=== PATIENT | male | born 1940 | race Caucasian/White ===

== ENCOUNTER 2016-11-10 06:00 | Emergency (ER) | payer MEDICARE, OTHER ==
[~2016-11-10] VITALS: Ht 182.9 cm; Wt 120.0 kg
[2016-11-10 06:00] VITALS: Ht 182.9 cm; Wt 120.0 kg
--- NOTE | 2016-11-10 06:00 | NUR ---
911 NOTE CONTACTED [facility] AND THEY REPORT THE FIRST CALL THEY RECEIVED WAS AT 0500 FOR A PT FOUND CODE BLUE. EMS ARRIVAL TO PT WAS AT 0515 AND THEY DEPARTED WITH PT ENROUTE TO [facility] [place] AT APPROX. [id number].
--- NOTE | 2016-11-10 06:15 | NUR ---
BLOOD GLUCOSE PREFORMED BY LAB BLOOD GLUCOSE IS 182
[2016-11-10 06:16] VITALS: PULSE 0; RESP 0
--- NOTE | 2016-11-10 06:16 | NUR ---
[facility] CALLED WITH ALL NURSTING STAFF, PROVIDER, AND RT IN AGREEMENT.
--- NOTE | 2016-11-10 06:20 | NUR ---
PT'S BROUGHT INTO ROOM WITH PT AND IS ASSISTED BY RN. HANDLES IT WELL, DENEIES NEED FOR VIGNESH STATING HER ST[employer] IS ALREADY ON HIS WAY.
--- OUTSIDE RECORDS SUMMARY | 2016-11-10 06:21 | XMS REPORT | Continuity of Care Document ---
Author Author [facility] Organization [facility] Address Unknown Phone Unavailable Care Team Providers Care Adobe Architect Name Role Phone APARNA AGUILAR MD Primary Care Physician [phone] Insurance Providers Payer Name Policy Number Subscriber Name Relationship [employer] Medicare [id number] Amee Guillen 01 Self / Same As Patient For Life [id number] Amee Guillen Self / Same As Patient Chief Complaint and Reason for Visit Chief Complaint Fall Reason for Visit [id number] Problems Medical Problems Problem Onset Date Status Benign essential hypertension 12/18/2010 Active Chronic congestive heart failure 12/18/2010 Active Chronic low back pain 12/18/2010 Active Depression 12/18/2010 Active Diabetes mellitus 12/18/2010 Active Disease related peripheral neuropathy 12/18/2010 Active Hyperlipidemia 12/18/2010 Active Cellulitis 03/09/2011 Active Fracture of clavicle 06/04/2011 Active Closed fracture of multiple ribs 06/19/2011 Active Atypical pneumonia 09/05/2011 Active Hypokalemia 11/08/2011 Active Atrial fibrillation 11/11/2011 Active Coronary arteriosclerosis 12/08/2011 Active Hypotension 12/08/2012 Active Hypothyroidism 12/08/2011 Active Bacterial urinary infection 12/08/2011 Active Sprain of ankle 01/04/2012 Active Sweating fever 01/27/2012 Active Altered mental status 06/26/2012 Active Fever 02/19/2012 Active SYSTEMIC INFLAMMATORY RESPONSE SYNDROME (SIRS) NOS 12/08/2012 Active Dermatitis 12/18/2010 Active fungal dermatitis 12/18/2010 Active Community acquired pneumonia 06/26/2012 Active Nausea and vomiting 06/26/2012 Active Atrial fibrillation and flutter 12/08/2012 Active Acute sinusitis 02/26/2013 Active Foot joint pain 04/22/2013 Active Diabetic foot ulcer 05/06/2013 Active Osteoporosis 2013 Active Acute bronchitis Unknown Active oxygen dependent Unknown Active Dyspnea Unknown Active Hypoxia Unknown Active Congestive heart failure (CHF) Unknown Active Emphysema/COPD Unknown Active Contusion of back wall of thorax Unknown Active Fall against object Unknown Active Sepsis Unknown Active Pneumonia Unknown Active Hx of diabetes mellitus Unknown Active Weakness Unknown Active History of CHF (congestive heart failure) Unknown Active Pneumonia Unknown Active Hx of diabetes mellitus Unknown Active Hyperkalemia Unknown Active Hx of diabetes mellitus Unknown Active Chronic pain Unknown Active Dehydration Unknown Active Cellulitis Unknown Active Opiate overdose Unknown Active Hypotension Unknown Active Cellulitis Unknown Active Hypoxia Unknown Active Pneumonia Unknown Active Cellulitis Unknown Active Hypoxia Unknown Active Hypotension Unknown Active Hx of diabetes mellitus Unknown Active Cellulitis Unknown Active Respiratory acidosis Unknown Active Hypoxemia Unknown Active COPD with acute exacerbation Unknown Active COPD with acute exacerbation Unknown Active COPD with acute exacerbation Unknown Active Medications Medication Dose Route Sig Days/Qty Instructions Order Date Discontinued Date Status Nitroglycerin 0.4 Mg SL NEEDED 04/07/08 07/31/11 Discontinued Citalopram Hydrobromide 2 Tab PO DAILY 08/28/10 02/15/11 Discontinued Insulin Glargine 24 Units SC BEDTIME 08/28/10 02/15/11 Discontinued Insulin Regular (Human) 5 Units SC BEFORE MEALS 08/28/10 02/15/11 Discontinued Clopidogrel Bisulfate 1 Tab PO DAILY 08/28/10 02/15/11 Discontinued Potassium Chloride 4 Tab PO THREE TIMES A DAY 08/28/10 02/15/11 Discontinued Spironolactone 1 Tab PO DAILY 08/28/10 02/15/11 Discontinued Bumetanide 1 Tab PO TWICE A DAY 08/28/10 02/15/11 Discontinued Colchicine 1 Tab PO DAILY 08/28/10 02/15/11 Discontinued Amiodarone Hcl 1 Tab PO DAILY 08/28/10 05/03/11 Discontinued Carvedilol 1 Tab PO TWICE A DAY 08/28/10 01/02/11 Discontinued Gabapentin 1 Tab PO TWICE A DAY 08/28/10 02/15/11 Discontinued Polyethylene Glycol 08/28/10 02/15/11 Discontinued Ferrous Sulfate 1 Tab PO DAILY 08/28/10 02/15/11 Discontinued Magnesium Oxide 1 Tab PO THREE TIMES A DAY 08/28/10 02/15/11 Discontinued Metoclopramide Hcl 1 Tab PO FOUR TIMES DAILY 08/28/10 02/15/11 Discontinued [Oxygen] 2-3 08/28/10 Active Oxycodone/Acetaminophen 1 Tab PO FOUR TIMES DAILY 08/28/10 09/12/12 Discontinued Levothyroxine Sodium 1 Tab PO DAILY 08/28/10 05/03/11 Discontinued Tramadol Hcl 1 - 2 Tabs PO FOUR TIMES DAILY 08/28/10 02/15/11 Discontinued Metolazone 1 Tab PO EVERY 3 DAYS 08/28/10 02/15/11 Discontinued Simvastatin 1 Tab PO BEDTIME 08/28/10 02/15/11 Discontinued Sulfamethoxazole-Trimethoprim 1 Tab PO TWICE A DAY 14 Qty 12/14/1018/05 Discontinued Carvedilol 0.5 Tab PO TWICE A DAY 0 Qty 01/02/11 04/04/11 Discontinued Ferrous Sulfate 325 Mg PO DAILY 30 Qty 01/16/11 02/15/11 Discontinued Tramadol Hcl 1 - 2 Tab PO Every 6 hours as needed 50 Qty 01/16/1118/05 Discontinued Bumetanide 1 Mg PO TWICE A DAY 02/15/11 01/07/12 Discontinued Potassium Chloride 10 Meq PO 3 twice a day 02/15/11 04/04/11 Discontinued Sertraline Hcl 100 Mg PO TWICE A DAY 02/15/11 02/28/11 Discontinued Ciprofloxacin Hcl 250 Mg PO TWICE A DAY 20 Qty 02/21/11 04/04/11 Discontinued Sertraline Hcl 100 Mg PO DAILY 0 Qty 02/28/11 04/04/11 Discontinued Doxycycline Hyclate 100 Mg PO TWICE A DAY 20 Qty 03/05/11 04/04/11 Discontinued Spironolactone 100 Mg PO DAILY 03/14/11 05/03/11 Discontinued Sertraline Hcl 100 Mg PO DAILY 30 Qty 03/16/11 03/17/12 Discontinued [Isodril] 10 Mg PO TWICE A DAY 03/16/11 04/04/11 Discontinued Sertraline Hcl 100 Mg PO DAILY 03/16/11 04/04/11 Discontinued Potassium Chloride 10 Meq PO 2 4 times a day 0 Qty 04/04/11 04/04/11 Discontinued Magnesium Oxide 400 Mg PO TWICE A DAY 04/04/11 02/05/12 Discontinued Gabapentin 600 Mg PO TWICE A DAY 04/04/11 Active Carvedilol 3.125 Mg PO TWICE A DAY 04/04/11 01/11/12 Discontinued Spironolactone 100 Mg PO DAILY 30 Qty 05/03/11 02/05/12 Discontinued Levothyroxine Sodium 1 Tab PO DAILY 30 Qty 05/03/11 07/31/11 Discontinued Amiodarone Hcl 1 Tab PO DAILY 30 Qty 05/03/11 07/31/11 Discontinued Sulfamethoxazole-Trimethoprim 1 Tab PO TWICE A DAY 20 Qty 06/11/1121/05 Discontinued Cholecalciferol 2,000 Unit PO DAILY 06/15/11 Active Sulfamethoxazole-Trimethoprim 1 Tab PO TWICE A DAY 20 Qty 06/20/1106/06 Discontinued Sulfamethoxazole-Trimethoprim 1 Tab PO TWICE A DAY 20 Qty 06/22/1106/06 Discontinued Polyethylene Glycol 3,350 Nf PO As Dir For CONSTIPATION 1 Qty 1 scoop everyother day 06/27/11 Active Levothyroxine Sodium 1 Tab PO DAILY 30 Qty 07/31/11 01/11/12 Discontinued Nitroglycerin 0.4 Mg SL NEEDED 1 Qty 07/31/11 04/14/12 Discontinued Ondansetron 4 Mg PO DAILY 1 Qty 08/17/11 04/21/12 Discontinued Bumetanide 1 Mg PO TWICE A DAY 60 Qty 01/07/12 02/05/12 Discontinued Levothyroxine Sodium 1 Tab PO DAILY 30 Qty 01/11/12 02/05/13 Discontinued Carvedilol 3.125 Mg PO TWICE A DAY 60 Qty 01/11/12 01/27/13 Discontinued Colchicine 0.6 Mg PO DAILY 30 Qty 01/11/12 01/27/13 Discontinued Tramadol Hcl 1 - 2 Tab PO Every 6 hours as needed 50 Qty 01/11/1205/05 Discontinued Potassium Chloride Microencaps (K-Dur) 2 Tab PO THREE TIMES A DAY 180 Qty 01/22/12 01/27/13 Discontinued Oxycodone HCl 40 Mg PO DAILY 01/27/12 02/27/12 Discontinued Spironolactone 100 Mg PO DAILY 30 Qty 02/05/12 11/03/12 Discontinued Magnesium Oxide 400 Mg PO TWICE A DAY 60 Qty 02/05/12 06/25/12 Discontinued Sertraline Hcl 100 Mg PO DAILY 30 Qty 03/17/12 06/03/12 Discontinued Influenza Virus Vaccine 0.5 Ml IM ONETIME 1 Qty 03/24/12 03/24/12 Discontinued Nitroglycerin 0.4 Mg SL NEEDED 1 Qty 04/14/12 10/15/12 Discontinued Ondansetron 4 Mg PO Every 4 hours as needed 30 Qty 04/21/12 07/16/12 Discontinued Ranitidine Hcl 150 Mg PO TWICE A DAY 60 Qty 04/21/12 06/03/12 Discontinued Tamsulosin Hcl 0.4 Mg PO Daily as needed 05/07/12 09/12/12 Discontinued Albuterol-Ipratropium 2 Puffs IN THREE TIMES A DAY 05/07/12 Discontinued Fluconazole 150 Mg PO WEEKLY 05/07/12 07/25/12 Discontinued Ranitidine Hcl 150 Mg PO TWICE A DAY For INDIGESTION 60 Qty 06/03/12 04/01/14 Discontinued Tramadol Hcl 1 - 2 Tab PO Every 6 hours as needed 50 Qty 06/03/1208/06 Discontinued Fluconazole 150 Mg PO DAILY 30 Qty 06/03/12 07/25/12 Discontinued Albuterol-Ipratropium 2 Puffs IN THREE TIMES A DAY 1 Qty 06/11/1209/03 Discontinued Magnesium Oxide 400 Mg PO TWICE A DAY 60 Qty 06/25/12 06/30/13 Discontinued Levofloxacin 750 Mg PO DAILY 5 Qty 06/28/12 07/25/12 Discontinued Minocycline Hcl 100 Mg PO DAILY 90 Qty 07/09/12 07/25/12 Discontinued Fluconazole 100 Mg PO WEEKLY 12 Qty 07/09/12 06/30/13 Discontinued Ondansetron 4 Mg PO Every 4 hours as needed 30 Qty 07/16/12 12/23/12 Discontinued Minocycline Hcl 100 Mg PO DAILY 07/25/12 09/12/12 Discontinued Sulfamethoxazole-Trimethoprim 2 Tab PO TWICE A DAY 40 Qty 07/28/1201/03 Discontinued Clindamycin Hcl 300 Mg PO THREE TIMES A DAY 30 Qty 07/28/12 08/13/12 Discontinued Sertraline Hcl 100 Mg PO DAILY 09/02/12 10/02/12 Discontinued Bumetanide 1 Mg PO TWICE A DAY 09/02/12 11/03/12 Discontinued Lorazepam 0.5 Mg PO Every 4 hours as needed 09/02/12 05/27/13 Discontinued Levofloxacin 500 Mg PO DAILY 5 Days 09/04/12 09/12/12 Discontinued Insulin Glargine 20 Unit SC BEDTIME 3 Qty 09/12/12 08/05/13 Discontinued Tamsulosin Hcl 0.4 Mg PO DAILY 90 Qty 09/12/12 06/30/13 Discontinued Oxycodone/Acetaminophen 1-2 Ea PO Every 6 hours as needed 09/24/12 Active Minocycline Hcl 100 Mg PO d@06 09/24/12 07/14/13 Discontinued Sertraline Hcl 100 Mg PO DAILY 90 Qty 10/02/12 08/05/13 Discontinued Nitroglycerin 0.4 Mg SL NEEDED For ANGINA PAIN 1 Qty 10/15/1202/15 Discontinued Spironolactone 100 Mg PO DAILY 90 Qty 11/03/12 11/26/13 Discontinued Levofloxacin 750 Mg PO DAILY 7 Days 12/10/12 01/13/13 Discontinued Ondansetron 4 Mg PO Every 4 hours as needed 30 Qty 12/23/12 12/23/12 Discontinued Tramadol Hcl 1 - 2 Tab PO Every 6 hours as needed 50 Qty 12/23/1208/06 Discontinued Tramadol Hcl 1 - 2 Tab PO Every 6 hours as needed 100 Qty 12/23/12 Discontinued Levofloxacin 500 Mg PO DAILY 10 Qty 12/29/12 01/13/13 Discontinued Colchicine 0.6 Mg PO DAILY 30 Qty 01/27/13 10/06/13 Discontinued Carvedilol 3.125 Mg PO TWICE A DAY 60 Qty 01/27/13 10/27/13 Discontinued Levothyroxine Sodium 1 Tab PO DAILY 30 Qty 02/05/13 10/27/13 Discontinued Aspirin 81 Mg PO DAILY 30 Qty 02/05/13 10/27/13 Discontinued Tramadol Hcl 1 - 2 Tab PO Every 6 hours as needed 100 Qty 02/18/13 Discontinued Sulfamethoxazole-Trimethoprim 1 Tab PO TWICE A DAY 20 Qty 02/26/13 Discontinued Amoxicillin/Clavulanate Potas 875 Mg PO TWICE A DAY 20 Qty 03/04/13 Discontinued Albuterol-Ipratropium 2 Puffs IN THREE TIMES A DAY 1 Qty 03/26/1309/03 Discontinued Influenza Virus Vaccine 0.5 Ml IM ONETIME 1 Qty 04/09/13 04/09/13 Discontinued Lorazepam 0.5 Mg PO Every 4 hours as needed 30 Qty 05/27/13 08/25/13 Discontinued Fluticasone Propionate (Nasal) 2 [place] NA DAILY 1 Qty 05/27/13 Discontinued Levofloxacin 500 Mg PO DAILY 10 Qty 05/29/13 07/31/13 Discontinued Magnesium Oxide 400 Mg PO TWICE A DAY For NUTRIENT REPLACEMENT 180 Qty 06/30/13 04/07/14 Discontinued Fluconazole 100 Mg PO WEEKLY For PREVENT INFECTION 12 Qty 06/30/1303/07 Discontinued Tamsulosin Hcl 0.4 Mg PO DAILY For DYSUREA 90 Qty 06/30/13 10/13/14 Discontinued Minocycline Hcl 100 Mg PO DAILY For ANTIBIOTIC 90 Qty 07/14/13 Discontinued Tramadol Hcl 1-2 Tab PO Every 6 hours as needed For BREAKTHROUGH PAIN 100 Qty 07/14/13 04/01/14 Discontinued Insulin Glargine 20 Unit SC BEDTIME For DIABETES 3 Qty 08/05/13 Discontinued Sertraline Hcl 100 Mg PO DAILY For ANTIDEPRESSANT 90 Qty 08/05/13 Discontinued Lorazepam 0.5 Mg PO Every 4 hours as needed 30 Qty 08/25/13 10/06/13 Discontinued Colchicine 0.6 Mg PO DAILY For PAIN 90 Qty 10/06/13 10/12/14 Discontinued Lorazepam 0.5 Mg PO Every 4 hours as needed For ANXIETY 60 Qty 12/22/13 Discontinued Carvedilol 3.125 Mg PO TWICE A DAY For HEART MED 180 Qty 10/27/1307/08 Discontinued Levothyroxine Sodium 1 Tab PO DAILY For THYROID 90 Qty 10/27/13 Discontinued Aspirin 81 Mg PO DAILY For BLOOD THINNER 90 Qty 10/27/13 Active Furosemide 80 Mg PO TWICE A DAY 60 Qty 11/05/13 11/26/13 Discontinued Furosemide 80 Mg PO TWICE A DAY For CHF 60 Qty 11/26/13 04/07/14 Discontinued Potassium Chloride 20 Meq PO TWICE A DAY For replacement 11/27/13 Discontinued Ondansetron 4 Mg PO DAILY PRN NAUSEA 11/27/13 02/08/14 Discontinued Albuterol/Ipratropium (Duoneb) 1 Puffs IH FOUR TIMES DAILY 11/27/13 07/02/14 Discontinued Albuterol 1 Ea INH DIRECTED PRN q4prn TO EASE BREATHING 25 Qty 11/30 Active Lorazepam 0.5 Mg PO Every 4 hours as needed For ANXIETY 60 Qty 04/07/14 Discontinued Ondansetron 4 Mg PO DAILY PRN NAUSEA 30 Qty 02/08/14 Active Fluticasone Propionate (Nasal) 1-2 [place] NA DAILY For STUFFY NOSE 1 Qty 02/12/14 06/02/14 Discontinued Nitroglycerin 0.4 Mg SL NEEDED For ANGINA PAIN 1 Qty 02/15/14 Active Sulfamethoxazole-Trimethoprim 1 Tab PO TWICE A DAY 20 Qty 02/15/14 Discontinued Sulfamethoxazole-Trimethoprim 1 Tab PO TWICE A DAY 20 Qty 02/16/14 Discontinued Levofloxacin 750 Mg PO DAILY For Pneumonia 5 Qty 02/19/14 02/26/14 Discontinued Clindamycin Hcl 300 Mg PO THREE TIMES A DAY For pneumonia 15 Qty 02/26/14 Discontinued Lisinopril 5 Mg PO DAILY For CHF 30 Qty 02/19/14 02/26/14 Discontinued Ranitidine Hcl 150 Mg PO TWICE A DAY For INDIGESTION 180 Qty 04/01/14 Active Fluconazole 100 Mg PO WEEKLY For PREVENT INFECTION 12 Qty 04/01/1403/08 Discontinued Tramadol Hcl 1-2 Tab PO Every 6 hours as needed For BREAKTHROUGH PAIN 100 Qty 04/01/14 06/02/14 Discontinued Magnesium Oxide 400 Mg PO TWICE A DAY For NUTRIENT REPLACEMENT 180 Qty 04/07/14 Active Furosemide 80 Mg PO TWICE A DAY For CHF 180 Qty 04/07/14 Active Lorazepam 0.5 Mg PO Every 4 hours as needed For ANXIETY 60 Qty 07/02/14 Discontinued Minocycline Hcl 100 Mg PO DAILY For ANTIBIOTIC 90 Qty 06/02/14 Active Tramadol Hcl 1-2 Tab PO Every 6 hours as needed For BREAKTHROUGH PAIN 100 Qty 06/02/14 10/13/14 Discontinued Spironolactone 100 Mg PO TWICE A DAY 60 Qty 06/02/14 Active Lorazepam 0.5 Mg PO Every 4 hours as needed For ANXIETY 60 Qty 08/31/14 Discontinued Oxycodone HCl 40 Mg PO THREE TIMES A DAY PRN FOR PAIN IF NEEDED 07/09 Active Ibuprofen 800 Mg PO THREE TIMES A DAY PRN MUSCLE PAIN & INFLAMMATION 07/09/14 Active Insulin Glargine 20 Unit SC BEDTIME For DIABETES 5 Qty 07/22/14 Active Potassium Chloride 20 Meq PO TWICE A DAY 180 Qty 08/03/14 Active Sertraline Hcl 100 Mg PO DAILY For ANTIDEPRESSANT 90 Qty 08/18/14 Active Lorazepam 0.5 Mg PO Every 4 hours as needed For ANXIETY 60 Qty Active Colchicine 0.6 Mg PO DAILY For PAIN 90 Qty 10/12/14 Active Tamsulosin Hcl 0.4 Mg PO DAILY For DYSUREA 90 Qty 10/13/14 Active Tramadol Hcl 1-2 Tab PO Every 6 hours as needed For BREAKTHROUGH PAIN 100 Qty 10/13/14 Active Ciprofloxacin Hcl 500 Mg PO TWICE A DAY 20 Qty 11/02/14 11/14/14 Discontinued Carvedilol 3.125 Mg PO TWICE A DAY For HEART MED 180 Qty 11/22/14 Active Levothyroxine Sodium 1 Tab PO DAILY For THYROID 90 Qty 11/22/14 Active Social History Social History Problem Response Recorded Date/Time Smoking Status Former smoker 11/30/2014 9:24am Query Response Start Date Stop Date Smoking Status Former smoker Hospital Discharge Instructions No hospital discharge instructions. Plan of Care Discharge Date 11/30/14 11:05am Disposition 01 HOME, SELF-CARE Condition at Discharge Improved Instructions/Education Provided Chronic Obstructive Pulmonary Disease (ED) Prescriptions See Medications Section Referrals APARNA AGUILAR MD Functional Status No functional status results. Allergies, Adverse Reactions, Alerts Allergen Type Severity Reaction Status Last Updated Allopurinol Allergy Unknown Active 08/04/14 Codeine Allergy Unknown Active 08/04/14 Metoclopramide Allergy Unknown Active 08/04/14 Venlafaxine Allergy Unknown Active 08/04/14 Celecoxib Allergy Unknown BLISTERS Active 08/04/14 Cephalosporins Allergy Unknown Active 08/04/14 Immunizations Name Given Type Hx Hepatitis A Vaccination No Historical Td (adult), adsorbed 02/17/14 Administered Td (adult), adsorbed 02/17/14 Administered Influenza, high dose seasonal 03/07/14 Administered Influenza, high dose seasonal 03/07/14 Administered Vital Signs Acute Vital Signs Vital Response Date/Time Blood Pressure 112/65 mm Hg Blood Pressure Mean 81 mm Hg Temperature (Fahrenheit) 98.4 degrees F (96.0 - 99.9) Temperature (Calculated Celsius) 36.58140 degrees C Temperature Source Oral Temperature Source Oral Pulse Pulse Rate (adult) 112 bpm (60 - 100) Pulse Rate: ED 119 bpm Respiratory Rate 18 breaths per minute (10 - 20) Height (Feet) 5 ft Height (Inches) 6 in. Weight (Pounds) 267 lbs Height 5 ft 6 in Weight 267 lb Body Mass Index 43.1 kg/m^2 Ambulatory Vital Signs Vital Response Date/Time Height 5 ft 5 in 11/22/2014 9:47am Weight 267 lbs 11/22/2014 9:47am Blood Pressure 98/62 mm Hg 11/22/2014 9:47am Body Surface Area 2.42 m2 11/22/2014 9:47am Body Mass Index 44.4 kg/m2 11/22/2014 9:47am Results Test Source Date Result Interp. Ref. Range Comments Activated Partial Thromboplast Time September 23, 2011 6:25am 26.6 SECONDS N 23.0-32.0 COMMENT: 06 Alanine Aminotransferase (ALT/SGPT) November 30, 2014 9:50am 20 U/L N 5-40 Albumin November 30, 2014 9:50am 3.7 gm/dL N 3.2-5.0 Albumin/Globulin Ratio November 30, 2014 9:50am 1.1 L 1.4-2.4 Alkaline Phosphatase November 30, 2014 9:50am 76 U/L N 35-125 Ammonia August 28, 2010 8:20pm 28 mcg/dL N 19-60 COMMENTS?NEW ADMIT SERUM AMMONIA,SERUM MAG Anion Gap November 30, 2014 9:50am 8.5 N 6-13 Anisocytosis December 08, 2012 8:20am 2+ COMMENT: 04 Arterial Blood HCO3 October 21, 2014 10:50am 29.9 mEq/L H 21-27 DONE ON O2 AT 4.5 LPM VIA N/C..THE RESULTS WERE GIVEN TO DR. PACKER. Arterial Blood Total CO2 October 21, 2014 10:50am 31.7 mM/L H 21-27 Arterial Blood pH October 21, 2014 10:50am 7.32 L 7.35-7.45 Aspartate Amino Transf (AST/SGOT) November 30, 2014 9:50am 26 U/L N 5-40 Atypical Lymphocytes June 25, 2012 10:20pm 1.0 % N 0-2 COMMENT: 05 B-Type Natriuretic Peptide November 03, 2014 12:06pm 255 pg/mL H 15-100 BUN/Creatinine Ratio November 30, 2014 9:50am 24.2 Band Neutrophils December 08, 2012 8:20am 2.0 % N 0-7 COMMENT: 04 Basophils # (Auto) November 30, 2014 9:50am 0.0 K/uL N 0-0.2 Basophils (%) (Auto) November 30, 2014 9:50am 0.4 % N 0-1 Basophils (Manual) February 14, 2014 6:05am 0.0 % N 0-1 Bedside Blood Urea Nitrogen June 06, 2009 8:27am 44 mg/dL H 8-25 Bedside Chloride June 06, 2009 8:27am 103 mEq/L N 98-116 Bedside Creatinine June 06, 2009 8:27am 1.6 mg/dL N 0.9-1.6 Bedside Glucose August 07, 2014 2:02pm 207 mg/dL H 70-120 Notify Nurse Bedside Hematocrit June 06, 2009 8:27am 49.0 % N 40.0-54.0 Bedside Hemoglobin June 06, 2009 8:27am 17.0 g/dL N 14.0-18.0 Bedside Potassium June 06, 2009 8:27am 3.8 mEq/L N 3.5-5.1 Bedside Sodium June 06, 2009 8:27am 138 mEq/L N 133-145 Bedside Troponin I November 27, 2013 1:15am < 0.05 ng/mL 0.00-0.05 <0.05 ng/mL=NORMAL0.05 - 0.40 ng/mL=CARDIAC CONDITION >0.40 ng/mL=SUGGESTS AMI Blood Gas Base Excess October 21, 2014 10:50am 2.5 mEq/L Blood Gas PCO2 October 21, 2014 10:50am 58 mmHg H 35-45 Blood Gas PO2 October 21, 2014 10:50am 103 mmHg H 89-100 Blood Urea Nitrogen November 30, 2014 9:50am 30 mg/dL H 8-25 C-Reactive Protein June 25, 2012 10:20pm 8.0 mg/L <6.0 COMMENT: 05 Calcium Level November 30, 2014 9:50am 9.0 mg/dL N 8.2-10.6 Carbon Dioxide Level November 30, 2014 9:50am 32 mEq/L N 22-34 Chloride Level November 30, 2014 9:50am 96 mEq/L L 98-116 Cholesterol Level February 20, 2002 8:12am 130 mg/dL N 120-200 Creatine Kinase MB May 21, 2014 7:40pm 4.7 ng/mL N 0.0-6.0 Creatinine November 30, 2014 9:50am 1.24 mg/dL N 0.9-1.6 Creatinine Clearance December 21, 1998 3:22pm 42.4 ml/min L 72-141 D-Dimer January 26, 2004 7:15am Positive ug/mL <0.20 COMMENTS? ROOM 3 D-Dimer Quantitative (PE/DVT) March 06, 2014 5:00pm 363 ng/mL < 230 Results <230 ng/mL yeild a negativepredictability for DVT or PE D-Dimer Titer January 26, 2004 7:15am 0.20-0.40 ug/mL <0.20 COMMENTS? ROOM 3 Digoxin Level September 13, 1998 9:42am 2.3 ng/ml PH Eosinophils # (Auto) November 30, 2014 9:50am 0.2 K/uL N 0-0.8 Eosinophils (%) (Auto) November 30, 2014 9:50am 2.4 % N 0-7.0 Eosinophils (Manual) February 14, 2014 6:05am 12.0 % H 0-7.0 Erythrocyte Sedimentation Rate May 29, 2010 1:10pm 7 mm/hr N 0-20 Folate August 06, 2000 6:50am See separate report ng/ml Free Thyroxine Index August 06, 2000 6:50am 5.10 N 3.6-14.0 Globulin November 30, 2014 9:50am 3.5 gm/dL H 2.0-3.0 Glomerular Filtration Rate Calc November 30, 2014 9:50am 56.99 mL/min MULTIPLY RESULT BY 1.210 IF THE PATIENT IS -AMERICANUnits are mL/min/ 1.73 m2 > 60 Normal kidney function 30-59 Moderately decreased kidney function 15-29 Severely decreased kidney function <15 End-stage kidney failure Glucose Level July 05, 1999 4:30pm 163 mg/dL H 65-115 HDL Cholesterol February 20, 2002 8:12am 48 mg/dL N 35-80 HIV-1 Antibody December 11, 2000 10:45am Negative NEGATIVE COMMENTS? EMPLOYEE NEEDLE STICK DURING SURGICAL PROCEDURE - PT IN [place] NOW Hematocrit November 30, 2014 9:50am 45.0 % N 40.0-54.0 Hemoglobin November 30, 2014 9:50am 14.5 g/dL N 14.0-18.0 Hepatitis B Surface Antibody December 11, 2000 10:45am See separate report COMMENTS? EMPLOYEE NEEDLE STICK DURING SURGICAL PROCEDURE - PT IN [place] NOW Hepatitis C Antibody December 11, 2000 10:45am See separate report COMMENTS? EMPLOYEE NEEDLE STICK DURING SURGICAL PROCEDURE - PT IN [place] NOW Hypochromasia June 25, 2012 10:20pm 1+ COMMENT: 05 Immature Blood Cells December 10, 2012 6:05am 0.2 K/uL N 0-0.4 COMMENT: 04 Immature Granulocyte # (Auto) November 30, 2014 9:50am 0.03 K/uL N 0-0.40 Immature Granulocyte % (Auto) November 30, 2014 9:50am 0.3 % N 0-0.5 InFluenza Virus Type A (H1N1) (PCR) July 09, 2014 6:15am Not detected NEGATIVE Influenza Virus Type A (PCR) July 09, 2014 6:15am Negative NEGATIVE Influenza Virus Type B (PCR) July 09, 2014 6:15am Negative NEGATIVE LDL Cholesterol February 20, 2002 8:12am 59 mg/dL N 25-160 Lab Scanned Report October 28, 2014 2:17pm Lab Scanned Report [id number] Lactate Dehydrogenase September 28, 1998 4:10pm 152 U/L N COMMENTS? CARDIAC ENZYMES NOW Lactic Acid Level May 21, 2014 7:40pm 1.2 mmol/L N 0.5-2.2 Lipase May 21, 2014 7:40pm 17 U/L N 8-57 Lymphocytes # (Auto) November 30, 2014 9:50am 0.6 K/uL L 0.9-5.2 Lymphocytes (%) (Auto) November 30, 2014 9:50am 6.6 % L 16.0-44.0 Lymphocytes (Manual) February 14, 2014 6:05am 26.0 % N 21.0-51.0 Macrocytosis December 08, 2012 8:20am 2+ COMMENT: 04 Magnesium Level August 27, 2011 10:20am 1.7 mg/dL N 1.3-2.5 Mean Corpuscular Hemoglobin November 30, 2014 9:50am 31.0 pg N 26.0-33.0 Mean Corpuscular Hemoglobin Concent November 30, 2014 9:50am 32.2 g/dL N 31.0-36.0 Mean Corpuscular Volume November 30, 2014 9:50am 96.2 fL H 80.0-94.0 Mean Platelet Volume November 30, 2014 9:50am 10.1 fL N 7.0-11.0 Metamyelocytes January 22, 2008 7:03pm 2.0 % Microcytosis November 03, 2006 8:55am 1+ COMMENTS?ROOM 2 Monocytes # (Auto) November 30, 2014 9:50am 0.7 K/uL N 0.16-1.0 Monocytes (%) (Auto) November 30, 2014 9:50am 8.0 % N 2.0-9.0 Monocytes (Manual) February 14, 2014 6:05am 16.0 % H 2.0-9.0 Myelocytes January 22, 2008 7:03pm 1.0 % Neutrophils February 14, 2014 6:05am 46.0 % N 42.0-75.0 Neutrophils # (Auto) November 30, 2014 9:50am 7.6 K/uL N 1.9-8.0 Neutrophils (%) (Auto) November 30, 2014 9:50am 82.3 % H 42.0-75.0 Nucleated Red Blood Cells # November 30, 2014 9:50am 0.00 K/uL N 0.0-0.012 Nucleated Red Blood Cells % November 30, 2014 9:50am 0.0 /100WBC N 0-0 Ovalocytes January 22, 2006 9:55pm 1+ COMMENTS?ROOM 5 Platelet Count November 30, 2014 9:50am 154 K/uL N 130-400 Platelet Estimate August 06, 2014 5:58am Decreased NORMAL NO EVIDENCE OF PLATELET CLUMPING ON SLIDE REVIEW Poikilocytosis January 22, 2006 9:55pm 1+ COMMENTS?ROOM 5 Polychromasia August 10, 2006 10:30pm 1+ COMMENTS?ROOM 2 Potassium Level November 30, 2014 9:50am 4.5 mEq/L N 3.5-5.1 Prealbumin May 30, 2010 3:30pm 27.3 mg/dL N 18-34 COMMENTS?May draw with next scheduled blood draw or with available blood Procainamide Level September 13, 1998 9:42am See separate report ug/mL Prostate Specific Antigen February 20, 2002 8:12am 0.1 ng/ml N 0.0-4.0 Prothromb Time International Ratio July 09, 2014 6:00am 1.07 L 2.0- 3.0 Prothrombin Time November 09, 2011 6:20am 12.1 SECONDS H 9.0-11.0 Prothrombin Time Patient/Contrl Mix July 09, 2014 6:00am 11.5 SECONDS N 9.0-12.0 RDW Standard Deviation November 30, 2014 9:50am 51.0 fL H 35.1-43.9 Random Glucose November 30, 2014 9:50am 181 mg/dL H 65-115 Rapid Troponin I August 28, 2010 3:40pm 0.00 ng/mL N 0.00-0.03 < 0.03 ng/mL=NORMAL0.04 - 0.50 ng/mL=CARDIAC CONDITION >0.50 ng/mL=SUGGESTS AMI Red Blood Cell Morphology August 27, 2002 7:35pm Normal Red Blood Count November 30, 2014 9:50am 4.68 M/uL N 4.60-5.40 Red Cell Distribution Width November 30, 2014 9:50am 14.7 % H 11.5-14.5 Sodium Level November 30, 2014 9:50am 132 mEq/L L 133-145 Stomatocytes December 08, 2012 8:20am 2+ COMMENT: 04 Synovial Fluid Appearance September 27, 1998 12:00am Cloudy Synovial Fluid Color September 27, 1998 12:00am Yellow Synovial Fluid Crystals September 27, 1998 12:00am Mod crystals seen Synovial Fluid Lymphocytes September 27, 1998 12:00am 5.0 % PL Synovial Fluid Macrophages September 27, 1998 12:00am 0.0 % Synovial Fluid Monocytes September 27, 1998 12:00am 1.0 % Synovial Fluid Neutrophils September 27, 1998 12:00am 94.0 % PH Synovial Fluid Other Cells September 27, 1998 12:00am 0.0 % Synovial Fluid RBC September 27, 1998 12:00am 1220.0 /mm3 N Synovial Fluid Source September 27, 1998 12:00am Left knee Synovial Fluid WBC September 27, 1998 12:00am 45369.0 /uL PH Target Cells August 05, 2001 7:20am 2+ COMMENTS? SEND TO [facility] ON ARRIVAL Thyroid Stimulating Hormone (TSH) May 29, 2010 1:10pm 10.62 uIU/ml H 0.34-5.60 Thyroxine (T4) August 06, 2000 6:50am 5.8 ug/dl N 4.7-11.5 Total Bilirubin November 30, 2014 9:50am 0.7 mg/dL N 0.1-1.3 Total Creatine Kinase May 21, 2014 7:40pm 52 U/L N 10-180 Total Protein November 30, 2014 9:50am 7.2 gm/dL N 6.0-8.4 Toxic Granulation May 28, 2001 3:18pm 1+ Triglycerides Level February 20, 2002 8:12am 113 mg/dL N 45-150 Triiodothyronine (T3) Uptake August 06, 2000 6:50am 27.8 % N 24.0- 38.9 Troponin I November 03, 2014 12:06pm 0.01 ng/mL N 0.0-0.02 Uric Acid August 07, 2005 10:33am 5.7 mg/dL N 2.5-7.0 COMMENTS? ADD TO THIS AM'S LABS Urine Amorphous Sediment December 08, 2011 11:25am Trace COMMENT: 05SOURCE: URINE, RANDOM Urine Appearance November 30, 2014 9:55am Clear SOURCE: URINE, CLEAN CATCH Urine Bacteria June 15, 2014 12:35am None /hpf NONE SOURCE: URINE , CLEAN CATCH Urine Bilirubin November 30, 2014 9:55am Negative NEGATIVE SOURCE: URINE , CLEAN CATCH Urine Casts June 15, 2014 12:35am 3-5 hyaline /lpf NONE SOURCE: URINE, CLEAN CATCH Urine Color November 30, 2014 9:55am Yellow SOURCE: URINE, CLEAN CATCH Urine Creatinine December 21, 1998 3:22pm 1.8 mg/dL Urine Crystals December 08, 2011 11:25am None /hpf NONE COMMENT: 05SOURCE : URINE, RANDOM Urine Epithelial Cells June 15, 2014 12:35am Occasional /lpf SOURCE: URINE, CLEAN CATCH Urine Glucose (UA) November 30, 2014 9:55am Negative NEGATIVE SOURCE: URINE, CLEAN CATCH Urine Ketones November 30, 2014 9:55am Negative NEGATIVE SOURCE: URINE, CLEAN CATCH Urine Leukocyte Esterase November 30, 2014 9:55am Negative NEGATIVE SOURCE: URINE, CLEAN CATCH Urine Mucus December 08, 2011 11:25am None /lpf NONE COMMENT: 05SOURCE: URINE, RANDOM Urine Nitrate November 30, 2014 9:55am Negative NEGATIVE SOURCE: URINE, CLEAN CATCH Urine Occult Blood November 30, 2014 9:55am Negative NEGATIVE SOURCE: URINE, CLEAN CATCH Urine Other December 08, 2011 11:25am N COMMENT: 05SOURCE: URINE, RANDOM Urine Protein November 30, 2014 9:55am Negative NEGATIVE SOURCE: URINE, CLEAN CATCH Urine RBC June 15, 2014 12:35am None /hpf NONE SOURCE: URINE, CLEAN CATCH Urine Specific [place] November 30, 2014 9:55am 1.020 1.005-1.030 SOURCE : URINE, CLEAN CATCH Urine Total Protein 24 Hour March 12, 2001 11:36am 98.4 mg/24hrs N 30-150 Urine Total Volume December 10, 2001 11:20am 4475 mL Urine Uric Acid 24 Hour December 21, 1998 3:22pm 1118.0 MG/24 HR H 250-750 Urine Urobilinogen November 30, 2014 9:55am 0.2 E.U./dL 0.2-1.0 SOURCE: URINE, CLEAN CATCH Urine WBC June 15, 2014 12:35am None /hpf NONE SOURCE: URINE, CLEAN CATCH Urine WBC Clumps December 08, 2011 11:25am 0-1 /hpf NONE COMMENT: 05SOURCE: URINE, RANDOM Urine pH November 30, 2014 9:55am 5.5 4.5-8.0 SOURCE: URINE, CLEAN CATCH VLDL Cholesterol February 20, 2002 8:12am 22.6 N 5-40 Vancomycin Level Trough February 14, 2014 9:05pm 16.5 mcg/mL PH 5-15 CRITICAL RESULT VERIFIED AND CALLED TO CARLOS ON 3MS AT [id number] NRD. 10-15 mcg/mL therapeutic trough level may be appropriate for more serious infections such as bacteremia, endocarditis, or osteomyelitis. 15-20 mcg/mL therapeutic trough level may be appropriate for nosocomial pneumonia or meningitis. Conditions such as changing renal function, additional aminoglycoside therapy, or risk for nephrotoxicity must be considered when determining the appropriate Vancomycin trough therapeutic range. Vitamin B12 Level August 06, 2000 6:50am See separate report pg/ml White Blood Count November 30, 2014 9:50am 9.3 K/uL N 5.0-10.0 Whole Blood Anion Gap June 06, 2009 8:27am 11 N 10-20 Blood Culture Blood August 04, 2014 2:05pm No growth. Body Fluid Culture Synovial Fluid September 27, 1998 6:00pm NO AEROBIC OR ANAEROBIC GROWTH AT 4 DAYS Clostridium difficile Toxin Assay Stool February 13, 2010 2:25pm MRSA Screen Nose And Wound December 08, 2011 2:25pm METHICILLIN RESISTANT STAPHYLOCOCCUS ... Influenza Virus A & B Rapid Smear Nasopharyngeal October 30, 2013 1:10am Urine Culture Urine,Clean Catch December 08, 2011 11:25am Proteus Mirabilis Wound Culture Scrotum December 01, 2013 2:30pm Pseudomonas Aeruginosa Procedures Procedure Status Date Provider(s) THER/PROPH/DIAG IV INF INIT completed 06/14/14 APARNA AGUILAR MD THER/PROPH/DIAG INJ IV PUSH completed 10/21/14 SANIA PACKER DO THER/PROPH/DIAG IV INF INIT completed 11/03/14 NICHOLAS LOZOYA M.D. TX/PRO/DX INJ NEW DRUG ADDON completed 11/03/14 NICHOLAS LOZOYA M.D. TX/PRO/DX INJ NEW DRUG ADDON completed 11/03/14 NICHOLAS LOZOYA M.D. THER/PROPH/DIAG IV INF INIT completed 03/06/14 AMANDA FIELDS M.D. THER/PROPH/DIAG IV INF ADDON completed 03/06/14 TATIANA HAWK M.D. Encounters Encounter Location Date/Time Departed Emergency Room [facility] 11/30/14 9:15am Office Visit APARNA AGUILAR 11/22/14 9:45am Office Visit APARNA AGUILAR 11/05/14 11:30am Departed Emergency Room [facility] 11/03/14 11:29am Registered Clinic [facility] 10/26/14 10:38am Office Visit APARNA AGUILAR 10/26/14 10:00am Departed Emergency Room [facility] 10/21/14 10:14am Office Visit APARNA R JEFF 10/13/14 1:00pm Registered Clinic [facility] 10/12/14 10:45am Registered Clinic [facility] 09/28/14 10:32am Office Visit [facility]ARNA R JEFF 09/28/14 10:15am Office Visit [facility] JE[facility] 09/15/14 11:15am Office Visit [facility] R JEFF 09/01/14 10:45am Registered Clinic [facility] 08/31/14 10:54am Office Visit APARNA R JEFF 08/18/14 10:45am Office Visit [facility]ARNA R JEFF 08/10/14 10:30am Discharged Inpatient Aida Benson [facility] 08/04/14 4:51pm Office Visit APARNA R JEFF 08/03/14 11:15am Registered Clinic A[facility] 08/03/14 10:26am Office Visit APARNA R JEFF 07/22/14 10:45am Discharged Inpatient Aida Benson [facility] 07/09/14 11:21am Office Visit APARNA R JEFF 07/08/14 9:00am Registered Clinic A[facility] 07/06/14 10:21am Office Visit APARNA R JEFF 07/02/14 10:30am Discharged Inpatient Aida Benson [facility] 06/15/14 1:11am Registered Clinic Aida [facility] 06/14/14 11:24am Office Visit APARNA R JEFF 06/14/14 11:00am Office Visit APARNA R JEFF 06/02/14 11:15am Discharged Inpatient Aida Benson [facility] 05/21/14 10:17pm Office Visit APARNA R JEFF 04/26/14 8:45am Office Visit APARNA R JEFF 04/20/14 1:30pm Registered Clinic Aida Benson [facility] 04/20/14 11:00am Office Visit APARNA R JEFF 04/14/14 11:15am Office Visit APARNA R JEFF 04/01/14 10:30am Registered Clinic Aida Benson [facility] 03/23/14 10:53am Office Visit APARNA R JEFF 03/18/14 10:15am Office Visit APARNA AGUILAR 03/11/14 11:15am Registered Clinic Aida [facility] 03/09/14 11:00am Discharged Inpatient Aida Benson [facility] 03/06/14 8:25pm Office Visit APARNA AGUILAR 03/05/14 11:15am Office Visit APARNA AGUILAR 03/01/14 9:15am Office Visit APARNA AGUILAR 02/26/14 10:00am Registered Clinic Aida Benson [facility] 02/23/14 11:35am Discharged Inpatient Aida Benson [facility] 02/16/14 8:34pm Discharged Inpatient Aida Benson [facility] 02/12/14 2:30am Departed Emergency Room Aida Benson [facility] 02/08/14 10:15am Office Visit APARNA AGUILAR 02/02/14 2:15pm Registered Clinic [facility] 02/02/14 1:31pm Office Visit APARNA AGUILAR 01/21/14 10:00am Registered Clinic A[facility] 01/12/14 11:43am Office Visit APARNA AGUILAR 01/07/14 10:00am Registered Clinic [facility] 12/22/13 12:49pm Office Visit APARNA AGUILAR 12/22/13 11:30am Office Visit APARNA AGUILAR 12/10/13 11:00am Registered Recurring [facility] 12/01/13 3:00pm Registered Clinic Aida [facility] 12/01/13 2:25pm Recent Diagnosis
--- OUTSIDE RECORDS SUMMARY | 2016-11-10 06:21 | XMS REPORT | Continuity of Care Document ---
Author Author [facility] Organization [facility] Address Unknown Phone Unavailable Care Team Providers Care Addiction Specialist Name Role Phone APARNA AGUILAR MD Unavailable [phone] Insurance Providers Payer Name Policy Number Subscriber Name Relationship [employer]ps [employer] [id number] Amee Guillen 01 Self / Same As Patient For Life [id number] Amee Guillen Self / Same As Patient Advance Directives Directive Response Recorded Date/Time Patient Resuscitation Status Full Code 02/17/14 2:03am Advance Directives No 02/17/14 2:03am Living Will Yes 02/17/14 2:03am Health Care Power of Manager [place] Yes 02/17/14 2:03am Chief Complaint and Reason for Visit Chief Complaint . Reason for Visit Benign essential hypertension Chronic congestive heart failure Diabetes mellitus Community acquired pneumonia Hypoxia Congestive heart failure (CHF) Emphysema/COPD Pneumonia Problems Medical Problems Problem Onset Date Status [...] Active Sepsis Unknown Active Pneumonia Unknown Active Medications Medication Dose Route Sig [...] Polyethylene Glycol 3,350 Nf PO As Dir 1 Qty 1 scoop everyother day 06/27 Active Levothyroxine Sodium 1 Tab PO DAILY [...] A DAY 60 Qty 02/05/12 06/25/12 Discontinued Oxycodone HCl 40 Mg PO THREE TIMES A DAY 0 Qty 02/27/12 Active Sertraline Hcl 100 Mg PO DAILY 30 [...] Mg PO TWICE A DAY 60 Qty 06/03/12 Active Tramadol Hcl 1 - 2 Tab PO [...] 08/05/13 Discontinued Nitroglycerin 0.4 Mg SL NEEDED 1 Qty 10/15/12 02/15/14 Discontinued Spironolactone 100 Mg PO DAILY 90 [...] 05/27/13 08/25/13 Discontinued Fluticasone Propionate (Nasal) 2 [place] NA DAILY 1 Qty 05/27/13 Discontinued Levofloxacin 500 Mg PO DAILY 10 Qty 05/29/13 07/31/13 Discontinued Magnesium Oxide 400 Mg PO TWICE A DAY 180 Qty 06/30/13 Active Fluconazole 100 Mg PO WEEKLY 12 Qty 06/30/13 Active Tamsulosin Hcl 0.4 Mg PO DAILY 90 Qty 06/30/13 Active Fluticasone Propionate (Nasal) 2 [place] NA DAILY 3 Qty 06/30/13 Active Minocycline Hcl 100 Mg PO DAILY 90 Qty 07/14/13 Active Tramadol Hcl 1-2 Tab PO Every 6 hours as needed 100 Qty 07/14/13 Active Insulin Glargine 20 Unit SC BEDTIME 3 Qty 08/05/13 Active Sertraline Hcl 100 Mg PO DAILY 90 Qty 08/05/13 Active Lorazepam 0.5 Mg PO Every 4 hours as needed 30 Qty 08/25/13 10/06/13 Discontinued Colchicine 0.6 Mg PO DAILY 90 Qty 10/06/13 Active Lorazepam 0.5 Mg PO Every 4 hours as needed 60 Qty 10/06/13 12/22/13 Discontinued Carvedilol 3.125 Mg PO TWICE A DAY 180 Qty 10/27/13 Active Levothyroxine Sodium 1 Tab PO DAILY 90 Qty 10/27/13 Active Aspirin 81 Mg PO DAILY 90 Qty 10/27/13 Active Furosemide 80 Mg PO TWICE A DAY 60 Qty 11/05/13 11/26/13 Discontinued Furosemide 80 Mg PO TWICE A DAY 60 Qty 11/26/13 Active Spironolactone 100 Mg PO DAILY 11/27/13 Active Potassium Chloride 40 Meq PO TWICE A DAY 11/27/13 Active Ondansetron 4 Mg PO DAILY 11/27/13 02/08/14 Discontinued Albuterol/Ipratropium 1 Puffs IH FOUR TIMES DAILY 11/27/13 Active Albuterol 1 Ea INH DIRECTED 25 Qty 11/30/13 Active Lorazepam 0.5 Mg PO Every 4 hours as needed 60 Qty 12/22/13 Active Menthol-Zinc Oxide 1 Un EX DAILY 1 Qty 12/22/13 Active Ondansetron 4 Mg PO DAILY 30 Qty 02/08/14 Active Fluticasone Propionate (Nasal) 1-2 [place] NA DAILY 1 Qty 02/12/14 Active Nitroglycerin 0.4 Mg SL NEEDED 1 Qty 02/15/14 Active Sulfamethoxazole-Trimethoprim 1 Tab PO TWICE A DAY 20 Qty 02/15/14 Discontinued Sulfamethoxazole-Trimethoprim 1 Tab PO TWICE A DAY 20 Qty for antibiotic. Take until gone. 02/16/14 02/19/14 Discontinued Levofloxacin 750 Mg PO DAILY 5 Qty 02/19/14 Active Clindamycin Hcl 300 Mg PO THREE TIMES A DAY 15 Qty 02/19/14 Active Lisinopril 5 Mg PO DAILY 30 Qty 02/19/14 Active Social History Social History Problem Response Recorded Date/Time Smoking Status Former smoker 02/19/2014 3:46pm Query Response Start Date Stop Date Smoking Status Former smoker Hospital Discharge Instructions Discharge Instructions Provider Instructions Dismiss Date: Feb 19, 2014 Dismiss: Home Diet: Return to Previous Activity: As Tolerated Physician Follow-up Appt #1: Dr Aguilar [phone] F/U Appt: One Week Discharge Instructions 1. Follow up with Dr Aguilar within 1 week 2. Return to the ED for evaluation if any concerns. Signs/Symptoms -notify Doctor: Fever above 101 deg, Shortness of Breath, Chilling Nursing Instructions Physician Follow-up Appointment: Dr Aguilar [phone] Scheduled Date: 02/26/14 Scheduled Time: 10 am Signs and Symptoms to notify your Doctor about:: Fever above 101 deg, Shortness of Breath, Uncontrolled Pain, Chilling, Numbness/Tingling Diet: Return to Previous Activity: As Tolerated Heart Failure Discharge Instructions: Read food labels, Avoid high sodium foods, Do not add salt to food, Bring weight record to Dr, Record weight daily, Weigh same time each day, Weigh with empty bladder, Report weight gains 2-3lb, No Smoking, Call Dr for appointment Smoking Cessation Brochure given to patient: No Pain Management Brochure given: Yes Plan of Care Discharge Date 02/19/14 4:30pm Disposition 06 HOME HEALTH SERVICE Prescriptions See Medications Section Functional Status Query Response Date Recorded Overall Activities Daily Living Ability/Staff Support Extens/One person assist February 17, 2014 2:03am Toileting Ability/Staff Support Extens/One person assist February 19, 2014 10:25am Oral Care Ability/Staff Support Independ/Setup help only February 19, 2014 10:25am Upper Body Dressing Ability/Staff Support Extens/One person assist February 19, 2014 10:25am Lower Body Dressing Ability/Staff Support Activity did not occur February 19, 2014 10:25am Memory Description Short term intact brick washer intact February 19, 2014 6:22pm Cognitive Skills Independent February 19, 2014 2:05am Making self understood Understood February 19, 2014 2:05am Indicators of depression Insomnia/change in sleep Sad,pained,worried facial Withdraws from activity February 19, 2014 6:22pm Allergies, Adverse Reactions, Alerts Allergen Type Severity Reaction Status Last Updated Allopurinol Allergy Unknown Active 05/25/13 Celecoxib Allergy Unknown Active 05/25/13 Cephalosporin Allergy Unknown Active 05/25/13 Codeine Allergy Unknown Active 05/25/13 Metoclopramide Allergy Unknown Active 05/25/13 Venlafaxine Allergy Unknown Active 05/25/13 Immunizations Name Given Type Influenza Vaccine, Inactivated 04/09/13 Administered Hx Hepatitis A Vaccination No Historical Pneumonia Vaccine Received Y 01/2014 Historical Had a Tetanus Toxoid Vaccination less than 10yrs ago No Historical Td (adult), adsorbed 02/17/14 Administered Td (adult), adsorbed 02/17/14 Administered Vital Signs Acute Vital Signs Vital Response Date/Time Pulse 02/19/2014 2:55pm Pulse Rate (adult) 120 bpm (60 - 100) 02/19/2014 2:55pm Pulse 02/19/2014 2:55pm Pulse Rate (adult) 120 bpm (60 - 100) 02/19/2014 2:55pm Height 5 ft 6 in 02/19/2014 2:55pm Weight 272 lb 02/19/2014 2:55pm Body Mass Index 44.31 02/19/2014 2:55pm Ambulatory Vital Signs Vital Response Date/Time Height 5 ft 5 in 02/02/2014 1:45pm Weight 276 lbs 02/02/2014 1:45pm Blood Pressure 98/60 mm Hg 02/02/2014 1:45pm Body Surface Area 2.47 m2 02/02/2014 1:45pm Body Mass Index 45.9 kg/m2 02/02/2014 1:45pm Results Test Source Date Result Interp. Ref. Range Comments Activated Partial Thromboplast Time September 23, 2011 6:25am 26.6 SECONDS N 23.0-32.0 COMMENT: 06 Alanine Aminotransferase (ALT/SGPT) February 16, 2014 5:25pm 26 U/L N 5- 40 Albumin February 16, 2014 5:25pm 3.5 gm/dL N 3.2-5.0 Albumin/Globulin Ratio February 16, 2014 5:25pm 1.1 L 1.4-2.4 Alkaline Phosphatase February 16, 2014 5:25pm 66 U/L N 35-125 Ammonia August 28, 2010 8:20pm 28 mcg/dL N 19-60 COMMENTS?NEW ADMIT SERUM AMMONIA,SERUM MAG Anion Gap February 19, 2014 6:10am 10.9 N 6-13 Anisocytosis December 08, 2012 8:20am 2+ COMMENT: 04 Arterial Blood HCO3 October 30, 2013 7:25am 36.9 mEq/L H 21-27 DONE ON O2 AT 4 LPM VIA N/C..THE RESULTS WERE CALLED TO DR. AGUILAR. Arterial Blood Total CO2 October 30, 2013 7:25am 38.8 mM/L H 21-27 Arterial Blood pH October 30, 2013 7:25am 7.39 N 7.35-7.45 Aspartate Amino Transf (AST/SGOT) February 16, 2014 5:25pm 24 U/L N 5-40 Atypical Lymphocytes June 25, 2012 10:20pm 1.0 % N 0-2 COMMENT: 05 B-Type Natriuretic Peptide February 16, 2014 5:25pm 325 pg/mL H 15-100 BUN/Creatinine Ratio February 19, 2014 6:10am 14.8 Band Neutrophils December 08, 2012 8:20am 2.0 % N 0-7 COMMENT: 04 Basophils # (Auto) February 19, 2014 6:10am 0.0 K/uL N 0-0.2 Basophils (%) (Auto) February 19, 2014 6:10am 0.7 % N 0-1 Basophils (Manual) February 14, 2014 6:05am 0.0 % N 0-1 Bedside Blood Urea Nitrogen June 06, 2009 8:27am 44 mg/dL H 8-25 Bedside Chloride June 06, 2009 8:27am 103 mEq/L N 98-116 Bedside Creatinine June 06, 2009 8:27am 1.6 mg/dL N 0.9-1.6 Bedside Glucose February 19, 2014 2:30pm 205 mg/dL H 70-120 Bedside Hematocrit June 06, 2009 8:27am 49.0 [...] ng/mL=SUGGESTS AMI Blood Gas Base Excess October 30, 2013 7:25am 9.8 mEq/L Blood Gas PCO2 October 30, 2013 7:25am 61 mmHg H 35-45 Blood Gas PO2 October 30, 2013 7:25am 78 mmHg L 89-100 Blood Urea Nitrogen February 19, 2014 6:10am 13 mg/dL N 8-25 C-Reactive Protein June 25, 2012 10:20pm 8.0 mg/L <6.0 COMMENT: 05 Calcium Level February 19, 2014 6:10am 9.1 mg/dL N 8.2-10.6 Carbon Dioxide Level February 19, 2014 6:10am 37 mEq/L H 22-34 Chloride Level February 19, 2014 6:10am 96 mEq/L L 98-116 Cholesterol Level February 20, 2002 8:12am 130 mg/dL N 120-200 Creatine Kinase MB February 19, 2012 3:45pm 1.5 ng/mL N 0.0-6.0 COMMENT: 02 Creatinine February 19, 2014 6:10am 0.88 mg/dL L 0.9-1.6 Creatinine Clearance December 21, 1998 3:22pm 42.4 ml/min L 72-141 D-Dimer January 26, 2004 7:15am Positive ug/mL <0.20 COMMENTS? ROOM 3 D-Dimer Quantitative (PE/DVT) October 30, 2013 12:50am 775 ng/mL <230 Results <230 ng/mL yeild a negativepredictability for DVT or PE D-Dimer Titer January 26, 2004 7:15am 0.20-0.40 ug/mL <0.20 COMMENTS? ROOM 3 Digoxin Level September 13, 1998 9:42am 2.3 ng/ml PH Eosinophils # (Auto) February 19, 2014 6:10am 0.5 K/uL N 0-0.8 Eosinophils (%) (Auto) February 19, 2014 6:10am 9.1 % H 0-7.0 Eosinophils (Manual) February 14, 2014 6:05am 12.0 % H 0-7.0 Erythrocyte Sedimentation Rate May 29, 2010 1:10pm 7 mm/hr N 0-20 Folate August 06, 2000 6:50am See separate report ng/ml Free Thyroxine Index August 06, 2000 6:50am 5.10 N 3.6-14.0 Globulin February 16, 2014 5:25pm 3.2 gm/dL H 2.0-3.0 Glomerular Filtration Rate Calc February 19, 2014 6:10am > 60.00 mL/min MULTIPLY RESULT BY 1.210 IF THE [...] PROCEDURE - PT IN RR NOW Hematocrit February 19, 2014 6:10am 42.7 % N 40.0-54.0 Hemoglobin February 19, 2014 6:10am 13.7 g/dL L 14.0-18.0 Hepatitis B Surface Antibody December 11, [...] 0-0.4 COMMENT: 04 Immature Granulocyte # (Auto) February 19, 2014 6:10am 0.04 K/uL N 0-0.40 Immature Granulocyte % (Auto) February 19, 2014 6:10am 0.7 % H 0-0.5 LDL Cholesterol February 20, 2002 8:12am 59 mg/dL N 25-160 Lab Scanned Report January 26, 2014 2:09pm Lab Scanned Report [id number] Lactate Dehydrogenase September 28, 1998 4:10pm 152 U/L N COMMENTS? CARDIAC ENZYMES NOW Lactic Acid Level February 12, 2014 11:00am 1.9 mmol/L N 0.5-2.2 Lipase February 08, 2014 11:07am 16 U/L N 8-57 Lymphocytes # (Auto) February 19, 2014 6:10am 1.6 K/uL N 0.9-5.2 Lymphocytes (%) (Auto) February 19, 2014 6:10am 27.1 % N 16.0-44.0 Lymphocytes (Manual) February 14, 2014 6:05am 26.0 % N 21.0-51.0 Macrocytosis December 08, 2012 8:20am 2+ COMMENT: 04 Magnesium Level August 27, 2011 10:20am 1.7 mg/dL N 1.3-2.5 Mean Corpuscular Hemoglobin February 19, 2014 6:10am 30.6 pg N 26.0-33.0 Mean Corpuscular Hemoglobin Concent February 19, 2014 6:10am 32.1 g/dL N 31.0-36.0 Mean Corpuscular Volume February 19, 2014 6:10am 95.5 fL H 80.0-94.0 Mean Platelet Volume February 19, 2014 6:10am 9.6 fL N 7.0-11.0 Metamyelocytes January 22, 2008 7:03pm 2.0 % Microcytosis November 03, 2006 8:55am 1+ COMMENTS?ROOM 2 Monocytes # (Auto) February 19, 2014 6:10am 0.7 K/uL N 0.16-1.0 Monocytes (%) (Auto) February 19, 2014 6:10am 12.2 % H 2.0-9.0 Monocytes (Manual) February 14, 2014 6:05am 16.0 % H 2.0-9.0 Myelocytes January 22, 2008 7:03pm 1.0 % Neutrophils February 14, 2014 6:05am 46.0 % N 42.0-75.0 Neutrophils # (Auto) February 19, 2014 6:10am 2.9 K/uL N 1.9-8.0 Neutrophils (%) (Auto) February 19, 2014 6:10am 50.2 % N 42.0-75.0 Nucleated Red Blood Cells # February 19, 2014 6:10am 0.00 K/uL N 0.0- 0.012 Nucleated Red Blood Cells % February 19, 2014 6:10am 0.0 /100WBC N 0-0 Ovalocytes January 22, 2006 9:55pm 1+ COMMENTS?ROOM 5 Platelet Count February 19, 2014 6:10am 154 K/uL DN 130-400 Platelet Estimate February 14, 2014 6:05am Normal NORMAL Poikilocytosis January 22, 2006 9:55pm 1+ COMMENTS?ROOM 5 Polychromasia August 10, 2006 10:30pm 1+ COMMENTS?ROOM 2 Potassium Level February 19, 2014 6:10am 3.9 mEq/L N 3.5-5.1 Prealbumin May 30, 2010 3:30pm 27.3 mg/dL N 18-34 COMMENTS?May draw with next scheduled blood draw or with available blood Procainamide Level September 13, 1998 9:42am See separate report ug/mL Prostate Specific Antigen February 20, 2002 8:12am 0.1 ng/ml N 0.0-4.0 Prothromb Time International Ratio February 08, 2014 11:07am 1.09 L 2.0- 3.0 Prothrombin Time November 09, 2011 6:20am 12.1 SECONDS H 9.0-11.0 Prothrombin Time Patient/Contrl Mix February 08, 2014 11:07am 11.1 SECONDS N 9.0-12.0 RDW Standard Deviation February 19, 2014 6:10am 48.4 fL H 35.1-43.9 Random Glucose February 19, 2014 6:10am 95 mg/dL N 65-115 Rapid Troponin I August 28, 2010 3:40pm 0.00 ng/mL N 0.00-0.03 < 0.03 ng/mL=NORMAL0.04 - 0.50 ng/mL=CARDIAC CONDITION >0.50 ng/mL=SUGGESTS AMI Red Blood Cell Morphology August 27, 2002 7:35pm Normal Red Blood Count February 19, 2014 6:10am 4.47 M/uL L 4.60-5.40 Red Cell Distribution Width February 19, 2014 6:10am 13.7 % N 11.5-14.5 Sodium Level February 19, 2014 6:10am 140 mEq/L N 133-145 Stomatocytes December 08, 2012 8:20am 2+ [...] Synovial Fluid WBC September 27, 1998 12:00am 40027.0 /uL PH Target Cells August 05, 2001 7:20am 2+ COMMENTS? SEND TO [facility] ON ARRIVAL Thyroid Stimulating Hormone (TSH) May 29, 2010 1:10pm 10.62 uIU/ml H 0.34-5.60 Thyroxine (T4) August 06, 2000 6:50am 5.8 ug/dl N 4.7-11.5 Total Bilirubin February 16, 2014 5:25pm 0.7 mg/dL N 0.1-1.3 Total Creatine Kinase February 19, 2012 3:45pm 27 U/L N 10-180 COMMENT: 02 Total Protein February 16, 2014 5:25pm 6.7 gm/dL N 6.0-8.4 Toxic Granulation May 28, 2001 3:18pm 1+ Triglycerides Level February 20, 2002 8:12am 113 mg/dL N 45-150 Triiodothyronine (T3) Uptake August 06, 2000 6:50am 27.8 % N 24.0- 38.9 Troponin I February 16, 2014 5:25pm 0.01 ng/mL N 0.0-0.02 Uric Acid August 07, 2005 10:33am 5.7 mg/dL N 2.5-7.0 COMMENTS? ADD TO THIS AM'S LABS Urine Amorphous Sediment December 08, 2011 11:25am Trace COMMENT: 05SOURCE: URINE, RANDOM Urine Appearance February 16, 2014 10:54pm Clear HAS SPECIMEN BEEN OBTAINED/COLLECTED? YSOURCE: URINE, [place] Urine Bacteria May 07, 2012 12:00am None /hpf NONE COMMENT: 05SOURCE: URINE, CLEAN CATCH Urine Bilirubin February 16, 2014 10:54pm Negative NEGATIVE HAS SPECIMEN BEEN OBTAINED/COLLECTED? YSOURCE: URINE, [place] Urine Casts December 08, 2011 11:25am None /lpf NONE COMMENT: 05SOURCE: URINE, RANDOM Urine Color February 16, 2014 10:54pm Yellow HAS SPECIMEN BEEN OBTAINED/COLLECTED? YSOURCE: URINE, [place] Urine Creatinine December 21, 1998 3:22pm 1.8 mg/dL Urine Crystals December 08, 2011 11:25am None /hpf NONE COMMENT: 05SOURCE : URINE, [place] Urine Epithelial Cells May 07, 2012 12:00am Few /lpf COMMENT: 05SOURCE: URINE, CLEAN CATCH Urine Glucose (UA) February 16, 2014 10:54pm Negative NEGATIVE HAS SPECIMEN BEEN OBTAINED/COLLECTED? YSOURCE: URINE, [place] Urine Ketones February 16, 2014 10:54pm Negative NEGATIVE HAS SPECIMEN BEEN OBTAINED/COLLECTED? YSOURCE: URINE, [place] Urine Leukocyte Esterase February 16, 2014 10:54pm Negative NEGATIVE HAS SPECIMEN BEEN OBTAINED/COLLECTED? YSOURCE: URINE, [place] Urine Mucus December 08, 2011 11:25am None /lpf NONE COMMENT: 05SOURCE: URINE, [place]OM Urine Nitrate February 16, 2014 10:54pm Negative NEGATIVE HAS SPECIMEN BEEN OBTAINED/COLLECTED? YSOURCE: URINE, [place] Urine Occult Blood February 16, 2014 10:54pm Negative NEGATIVE HAS SPECIMEN BEEN OBTAINED/COLLECTED? YSOURCE: URINE, [place] Urine Other December 08, 2011 11:25am N COMMENT: 05SOURCE: URINE, RANDOM Urine Protein February 16, 2014 10:54pm Negative NEGATIVE HAS SPECIMEN BEEN OBTAINED/COLLECTED? YSOURCE: URINE, [place] Urine RBC May 07, 2012 12:00am None /hpf NONE COMMENT: 05SOURCE : URINE, CLEAN CATCH Urine Specific [place] February 16, 2014 10:54pm 1.010 1.005-1.030 HAS SPECIMEN BEEN OBTAINED/COLLECTED? YSOURCE: URINE, [place] Urine Total Protein 24 Hour March 12, 2001 11:36am 98.4 mg/24hrs N 30-150 Urine Total Volume December 10, 2001 11:20am 4475 mL Urine Uric Acid 24 Hour December 21, 1998 3:22pm 1118.0 MG/24 HR H 250-750 Urine Urobilinogen February 16, 2014 10:54pm 0.2 E.U./dL 0.2-1.0 HAS SPECIMEN BEEN OBTAINED/COLLECTED? YSOURCE: URINE, [place] Urine WBC May 07, 2012 12:00am None /hpf NONE COMMENT: 05SOURCE : URINE, CLEAN CATCH Urine WBC Clumps December 08, 2011 11:25am 0-1 /hpf NONE COMMENT: 05SOURCE: URINE, [place] Urine pH February 16, 2014 10:54pm 5.5 4.5-8.0 HAS SPECIMEN BEEN OBTAINED/COLLECTED? YSOURCE: URINE, [place] VLDL Cholesterol February 20, 2002 8:12am 22.6 [...] See separate report pg/ml White Blood Count February 19, 2014 6:10am 5.7 K/uL DN 5.0-10.0 Whole Blood Anion Gap June 06, 2009 8:27am 11 N 10-20 Blood Culture Blood February 16, 2014 5:55pm No growth. Body Fluid Culture Synovial Fluid [...] December 01, 2013 2:30pm Pseudomonas Aeruginosa Procedures No known history of procedures. Encounters Encounter Location Date/Time [facility]14 8:34pm [facility] 02/12/14 2:30am Departed Emergency Room [facility] 02/08/14 10:15am Office Visit APARNA R JEFF 02/02/14 2:15pm Registered Clinic [facility] 02/02/14 1:31pm Office Visit APARNA R JEFF 01/21/14 10:00am Registered Clinic [facility] 01/12/14 11:43am Office Visit APARNA R JEFF 01/07/14 10:00am Registered Clinic [facility] 12/22/13 12:49pm Office Visit APARNA R JEFF 12/22/13 11:30am Office Visit APARNA R JEFF 12/10/13 11:00am Registered Recurring [facility] 12/01/13 3:00pm Registered Clinic [facility] 12/01/13 2:25pm Discharged Inpatient [facility] 11/27/13 2:30am Office Visit APARNA R JEFF 11/26/13 10:45am Office Visit APARNA R JEFF 11/12/13 11:30am Office Visit APARNA R JEFF 11/05/13 9:15am Discharged Inpatient [facility] 10/30/13 12:37pm Office Visit APARNA R JEFF 10/27/13 10:45am Office Visit [facility]NA R JEFF 10/06/13 11:15am Office Visit [facility]NA R JEFF 09/24/13 10:00am Office Visit AP[facility]NA R JEFF 09/08/13 10:30am Office Visit AP[facility]NA R JEFF 08/25/13 10:00am Office Visit APARNA R JEFF 08/18/13 11:00am Registered Clinic [facility] 08/11/13 2:45pm Office Visit APARNA R JEFF 08/11/13 2:15pm Office Visit APARNA R JEFF 08/05/13 10:45am Office Visit APARNA R JEFF 07/31/13 1:00pm Office Visit [facility]NA R JEFF 07/30/13 10:05am Office Visit AP[facility]NA R JEFF 07/24/13 11:30am Office Visit APARNA R JEFF 07/14/13 10:30am Office Visit AP[facility]NA R JEFF 06/30/13 10:30am Registered Clinic [facility] 06/09/13 11:37am Office Visit APARNA AGUILAR 06/09/13 11:30am Registered Clinic [facility] 06/02/13 11:35am Office Visit APARNA AGUILAR 06/02/13 11:15am Discharged Inpatient [facility] 05/28/13 7:10am Office Visit APARNA AGUILAR 05/27/13 1:00pm Discharged Inpatient [facility] 05/25/13 9:20am Office Visit APARNA AGUILAR 05/19/13 11:15am Registered Clinic [facility] 05/12/13 1:36pm Office Visit APARNA AGUILAR 05/12/13 1:15pm Office Visit APARNA AGUILAR 05/06/13 11:15am Office Visit APARNA AGUILAR 04/22/13 11:00am Office Visit AP[facility]NA AGUILAR 04/09/13 10:30am Office Visit APARNA AGUILAR 03/26/13 11:00am Office Visit APARNA AGUILAR 03/12/13 10:15am Office Visit APARNA AGUILAR 03/04/13 10:45am Office Visit APARNA AGUILAR 02/26/13 10:30am Recent Diagnosis Benign essential hypertension Chronic congestive heart failure Diabetes mellitus Community acquired pneumonia Hypoxia Congestive heart failure (CHF) Emphysema/COPD Pneumonia
--- OUTSIDE RECORDS SUMMARY | 2016-11-10 06:22 | XMS REPORT | Referral Summary ---
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 Discharge Diagnosis: Sleep related hypoventilation/hypoxemia in other disease Discharge Diagnosis: Obstructive sleep apnea, adult Discharge Diagnosis: Heart failure Discharge Disposition: 01-Home or Self Care Attending Physician: Elena Barros Admitting Physician: Elena Barros Vital Signs Most recent to 1 oldest [Reference Range]: Peripheral Pulse 87 bpm Rate [60-100 bpm] (12/02/14 3:21 PM) Blood Pressure 120/78 mmHg [90-140/60-90 mmHg] (12/02/14 3:21 PM) SpO2 90 % (12/02/14 3:21 PM) Problem List Condition Effective Dates Status Health Status Informant Sleep related Active hypoventilation/hypo xemia in other disease(Confirmed) Central sleep apnea Active due to medical condition(Confirmed) Morbid Active patient obesity(Confirmed) Obstructive sleep Active apnea, adult(Confirmed) Allergies, Adverse Reactions, Alerts Substance Reaction Severity Status allopurinol skin peels off Medium Active skin sloughed off celecoxib blistering of skin Active Effexor Active metoclopramide excessive drowsiness,hallucina Active Rocephin Active Tape Adverse Reaction Active Medications Aldactone 100 mg oral tablet 1 tabs, Oral, Daily, 0 Refill(s) Start Date: 03/18/14 Status: Ordered Aspirin Low Dose 81 mg oral delayed release tablet 1 tabs, Oral, Daily, 0 Refill(s) Start Date: 03/18/14 Status: Ordered Ativan 0.5 mg oral tablet See Instructions, Take 1 tablet (0.5 MG) by oral route every 8 hours as needed. , 0 Refill(s) Start Date: 03/18/14 Status: Ordered BIPAP Machine (DME) DME Item Bipap machine /. Inhale 15/7 cm by nasal route with 7 L 02 q HS, See Instructions, 0 Refill(s), Supply Start Date: 03/18/14 Status: Ordered bumetanide 1 mg oral tablet 1 tabs, Oral, BID, 0 Refill(s) Start Date: 03/18/14 Status: Ordered colchicine 0.6 mg oral tablet See Instructions, Take 2 tablet (1.2 MG) by oral route initially, then take 1 tablet in 1 hour, 0 Refill(s) Start Date: 03/18/14 Status: Ordered Coreg 3.125 mg oral tablet See Instructions, Take 1 tablet (3.125 MG) by oral route 2 times every with food., 0 Refill(s) Start Date: 03/18/14 Status: Ordered Cymbalta See Instructions, Take 1 capsule by oral route 2 times every day., 0 Refill(s) Start Date: 03/18/14 Status: Ordered Diflucan 150 mg oral tablet See Instructions, Take 1 tablet (150 MG) by oral route once., 0 Refill(s) Start Date: 03/18/14 Status: Ordered Flomax 0.4 mg oral capsule See Instructions, Take 1 capsule (0.4 MG) by oral route every day as needed., 0 Refill(s) Start Date: 03/18/14 Status: Ordered gabapentin 600 mg oral tablet 1 tabs, Oral, BID, 0 Refill(s) Start Date: 03/18/14 Status: Ordered GlycoLax oral powder for reconstitution See Instructions, 17 gram/dose oral powder. Take one scoop by mouth every other day mixed as directed for constipation., 0 Refill(s) Start Date: 03/18/14 Status: Ordered Home Oxygen (DME) DME Item Inhale 3 L during the day, 7 L BIPAP q HS, See Instructions, 0 Refill(s ), Supply Start Date: 03/18/14 Status: Ordered Lantus 100 units/mL subcutaneous solution See Instructions, Inject 20 u by subcutaneous route every 2 bedtimes as per insulin protocol., 0 Refill(s) Start Date: 03/18/14 Status: Ordered minocycline 100 mg oral tablet 1 tabs, Oral, q12hr, 0 Refill(s) Start Date: 03/18/14 Status: Ordered nitroglycerin 0.4 mg sublingual tablet See Instructions, Place 1 tablet (0.4 mg) by sublinguinal route prn, 0 Refill(s ) Start Date: 03/18/14 Status: Ordered NovoLOG 100 units/mL subcutaneous solution See Instructions, Inject 4 u by subcutaneous TID every day as per insulin sliding scale protocol., 0 Refill(s) Start Date: 03/18/14 Status: Ordered OxyCONTIN 40 mg oral tablet, extended release See Instructions, Take 1 tablet (40 MG) by oral route 3 times every day., 0 Refill(s) Start Date: 03/18/14 Status: Ordered Percocet 10/325 oral tablet See Instructions, Take 1 tablet by oral route every 6 hours as needed., 0 Refill (s) Start Date: 03/18/14 Status: Ordered potassium chloride extended release 120 mEq, Oral, BID, 0 Refill(s) Start Date: 03/22/14 Status: Ordered Synthroid 75 mcg (0.075 mg) oral tablet 1 tabs, Oral, Daily, 0 Refill(s) Start Date: 03/18/14 Status: Ordered Ultram 50 mg oral tablet See Instructions, Take 1-2 tablet (50 MCG) by oral route 4 times every day as needed., 0 Refill(s) Start Date: 03/18/14 Status: Ordered Vitamin D3 2000 intl units oral tablet See Instructions, Take one tablet by mouth every am, 0 Refill(s) Start Date: 03/18/14 Status: Ordered Zantac 150 oral tablet 1 tabs, Oral, Daily, 0 Refill(s) Start Date: 03/18/14 Status: Ordered Zofran 4 mg oral tablet See Instructions, Take 1 tablet (4 MG) by oral route every 8 hours PRN., 0 Refill(s) Start Date: 03/18/14 Status: Ordered Results No data available for this section Immunizations Vaccine Date Refusal Reason influenza virus vaccine, live 03/18/11 Procedures No data available for this section Social History Social History Type Response Smoking Status Former smoker; Type: Cigarettes Assessment and Plan Extracted from: Title: Office Visit Note Author: Elena Barros Date: 12/02/14 Assessment/Plan 1.Sleep related hypoventilation/hypoxemia in other disease -Multifactorial, but currently on oxygenat 5LPM along with his ASV machine. He does require oxygen 3LPM around the clock that is prescribed elsewhere. 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 He is on an ASV machine for this. There was the recent release of the SERVE-HF trial, whichevaluated patient's with known CHF and use of ASV machines. This showed an increased risk of mortality in patient 's who were NYHA Class II-IV CHF patient's with an ejection fraction of <45% using an ASV machine, vs. patient's of this class not on an ASV machine. At this time, it is uncertain how much of the central apneas are due to his underlying heart failure vs. chronic narcotic medication use. Dr. Morales also discussed this with the patient and his spouse. At this time, it was decided to have him see Dr. Ortiz for evaluation of the severity of his CHF including an echocardiogram in order to decide whether the ASV machine should be discontinued, at which time there would need to be a decision made in regard to treatment with oxygen alone vs. oxygen plus plain BiPAP. He does certainly benefit from the ASV machine symptomatically. He will follow-up with Dr. Morales in 2 months for re-evaluation of this topic after he has had cardiology evaluation. He and his spouse voiced understanding and agreed. Continue same for now. Heart failure -To meet with Dr. Ortiz for clarification on severity along with a recent EF. Obstructive sleep apnea, adult -Continue ASV for now. Decision to be made regarding future treatment pending cardiology evaluation. -F/u in 2 months. 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 He will therefore by Carmen, continue on an ASV machine and return in 6 months to see [facility]. Donaldo Lamar MD on December 03, 2014 18:21:58 CDT
--- OUTSIDE RECORDS SUMMARY | 2016-11-10 06:22 | XMS REPORT | Continuity of Care Document ---
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 Role Phone APARNA AGUILAR MD Unavailable [phone] Insurance Providers Guarantor Amee Anderson Address [address] [place] [address] Payer Pocket Policy Number [id number] Subscriber's Name Amee Anderson Relationship 01 Self / Same As Patient Group Number [id number] Group Name [employer] Effective Date 13 Payer s Medicare Policy Number [id number] Subscriber's Name Amee Anderson Relationship 01 Self / Same As Patient Effective Date 09 Chief Complaint and Reason for Visit Chief Complaint Lethargy Reason for Visit Generalized weakness Malaise and fatigue Problems Active Problems Medical Problem Onset Date Status Abdominal wall cellulitis Unknown Acute Acquired valgus deformity of right ankle Unknown Actinic keratosis Unknown Acute Acute bronchitis Unknown Acute Acute exacerbation of CHF (congestive heart failure) Unknown Acute Acute sinusitis 02/26/2013 Chronic Altered mental status 06/26/2012 Acute Altered mental status Unknown Resolved Atrial fibrillation 11/11/2011 Acute Atrial fibrillation and flutter 12/08/2012 Acute Atypical pneumonia 09/05/2011 Chronic Bacterial urinary infection 12/08/2011 Acute Benign essential hypertension 12/18/2010 Chronic COPD with acute exacerbation Unknown Acute COPD with acute exacerbation Unknown Acute COPD with acute exacerbation Unknown Acute Cellulitis 03/09/2011 Chronic Cellulitis Unknown Acute Cellulitis Unknown Acute Cellulitis Unknown Acute Cellulitis Unknown Acute Cellulitis Unknown Acute Chills Unknown Acute Chronic atrial fibrillation Unknown Chronic Chronic congestive heart failure 12/18/2010 Chronic Chronic diastolic heart failure Unknown Chronic Chronic low back pain 12/18/2010 Chronic Chronic pain Unknown Chronic Closed fracture of multiple ribs 06/19/2011 Chronic Community acquired pneumonia 06/26/2012 Acute Concussion Unknown Acute Congestive heart failure (CHF) Unknown Acute Contusion of back wall of thorax Unknown Acute Contusion of right knee Unknown Acute Coronary arteriosclerosis 12/08/2011 Acute Decubitus ulcer Unknown Acute Dehydration Unknown Acute Depression 12/18/2010 Dermatitis 12/18/2010 Chronic Diabetes mellitus 12/18/2010 Chronic Diabetic foot ulcer 05/06/2013 Chronic Disease related peripheral neuropathy 12/18/2010 Dyspnea Unknown Acute Elevated d-dimer Unknown Acute Emphysema/COPD Unknown Acute Fall against object Unknown Acute Fever 02/19/2012 Resolved Foot joint pain 04/22/2013 Chronic Fracture of clavicle 06/04/2011 Chronic HCAP (healthcare-associated pneumonia) Unknown Acute History of CHF (congestive heart failure) Unknown Acute History of COPD Unknown Chronic History of atrial fibrillation Unknown Chronic History of cellulitis Unknown Chronic Hx of diabetes mellitus Unknown Acute Hx of diabetes mellitus Unknown Acute Hx of diabetes mellitus Unknown Acute Hx of diabetes mellitus Unknown Acute Hx of diabetes mellitus Unknown Acute Hx of fall Unknown Acute Hyperkalemia Unknown Acute Hyperlipidemia 12/18/2010 Hypokalemia 11/08/2011 Acute Hypotension 12/08/2012 Acute Hypotension Unknown Acute Hypotension Unknown Acute Hypothyroidism 12/08/2011 Acute Hypoxemia Unknown Acute Hypoxia Unknown Acute Hypoxia Unknown Acute Hypoxia Unknown Acute Inflamed seborrheic keratosis Unknown Acute Inguinal pain Unknown Acute Left foot pain Unknown Acute Nausea and vomiting 06/26/2012 Acute Opiate overdose Unknown Acute Osteoporosis 2013 Chronic Pneumonia Unknown Acute Pneumonia Unknown Acute Pneumonia Unknown Acute Pressure ulcer of foot Unknown Acute Respiratory acidosis Unknown Acute SYSTEMIC INFLAMMATORY RESPONSE SYNDROME (SIRS) NOS 12/08/2012 Acute Sepsis Unknown Acute Sprain of ankle 01/04/2012 Chronic Sweating fever 01/27/2012 Acute Tremors of nervous system Unknown Acute Weakness Unknown Acute Weakness Unknown 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 Unknown Acute Past Problems Medical Problem Onset Date Generalized weakness Unknown Left foot pain Unknown Malaise and fatigue Unknown Nausea & vomiting Unknown Pressure ulcer of foot Unknown Medications Current Home Medications Medication Dose Units Route Directions Days Qty Instructions Start Date Albuterol (Albuterol 0.083% Std Neb Dose) 2.5 Mg/3 Ml Neb 1 Ea Inhalation As Directed as needed for Q4prn To Ease Breathing 25 Each 03/08/15 Aspirin (Aspirin Enteric Coated) 81 Mg Tabec Oral Daily 01/09 Carvedilol (Coreg) 3.125 Mg Tab 3.125 Mg Oral Twice A Day for Not Specified 10/14/15 Cholecalciferol (Vitamin D) 2,000 Unit Cap 2,000 Unit Oral Daily 12/30/14 Colchicine 0.6 Mg Tab 0.6 Mg Oral Daily for Pain 90 Tablet 06/29/15 Fluticasone Propionate (Flonase 0.05% Nasal [address]) 16 Gm Inha 1-[address] Nasal Daily 1 Btl 05/24/15 Furosemide (Lasix 80 Mg Po) 80 Mg Tab 80 Mg Oral Daily for Not Specified 30 Tablet 09/27/15 Gabapentin 600 Mg Tab 600 Mg Oral Twice A Day 04/04/11 Gentamicin Sulfate (Garamycin Op Soln) 20 Drop/Ml Soln 2 Drop Affected Eye Four Times Daily 1 Btl Use for 3 days. 12/01/15 Ibuprofen 800 Mg Tab 800 Mg Oral Three Times A Day as needed for Muscle Pain & Inflammation 90 Tablet 04/06/15 Insulin Glargine (Lantus Solostar) Solostar Inj 20 Unit Subcutaneously Bedtime for Diabetes 5 Unit 09/08/15 Ipratropium-Albuterol (Combivent Respimat) Respimat Aer 1 Puffs Oral Four Times Daily 1 Unit 07/20/15 Levothyroxine Sodium (Synthroid) 75 Mcg Tab 1 Tab Oral Daily for Thyroid 90 Tablet 12/01/15 Lorazepam (Ativan) 0.5 Mg Tab 0.5 Mg Oral Every 4 Hours As Needed for Anxiety 60 Tablet 01/13/16 Magnesium Oxide (Mag-Ox 400) 400 Mg Tab 400 Mg Oral Twice A Day for Nutrient Replacement 180 Tablet 03/06/16 Minocycline Hcl 100 Mg Cap 100 Mg Oral Daily 90 Capsule 06/29/15 Nitroglycerin 0.4 Mg Sub 0.4 Mg Sublingual As Needed for Angina Pain 1 Btl 12/14/14 Ondansetron (Zofran Tab) 4 Mg Tab 4 Mg Oral Daily as needed for Nausea 30 Tablet 05/10/15 Oxycodone Hcl (Oxycontin) 40 Mg Tab 40 Mg Oral Three Times A Day as needed for For Pain If Needed May take up to total of 6 tablets per 24 hours Oxycodone/Acetaminophen (Percocet 10/325 Mg) 1 Ea Tab 1-2 Ea Oral Every 6 Hours As Needed for Pain May take up to 8 tablets per 24 hours 09/24/12 Polyethylene Glycol (Miralax Bottle 255 Gm) 255 Gm Pow 17 Gm Oral Every Other Day for Not Specified 1 Btl as needed 12/08/15 Potassium Chloride (Potassium Chloride Er) 20 Meq Tab 20 Meq Oral Twice A Day 180 Tablet 05/05/15 Ranitidine Hcl (Zantac) 150 Mg Tab 150 Mg Oral Twice A Day for Indigestion 180 Tablet 01/31/16 Sertraline Hcl (Zoloft) 100 Mg Tab 100 Mg Oral Daily for Antidepressant 90 Tablet 06/29/15 Spironolactone (Aldactone) 100 Mg Tab 100 Mg Oral Daily for Not Specified 30 Tablet 08/16/15 Tamsulosin Hcl (Flomax) 0.4 Mg Cap 0.4 Mg Oral Daily for Dysurea 90 Capsule 07/20/15 Tramadol Hcl (Ultram) 50 Mg Tab 1-2 Tab Oral Every 6 Hours As Needed for Breakthrough Pain 100 Tablet 11/09/15 Past Home Medications Medication Directions Ordered Status Albuterol (Albuterol 0.083% Std Neb Dose) 2.5 Mg/3 Ml Neb, 1 Ea Inhalation As Directed as needed for Q4prn To Ease Breathing 11/30/13 Discontinued Albuterol-Ipratropium (Combivent) Aer, 2 Puffs Mapped To Inh, Do Not Use Three Times A Day 03/26/13 Discontinued Albuterol-Ipratropium (Combivent) Aer, 2 Puffs Mapped To Inh, Do Not Use Three Times A Day 06/11/12 Discontinued Albuterol-Ipratropium (Combivent) Aer, 2 Puffs Mapped To Inh, Do Not Use Three Times A Day 05/07/12 Discontinued Albuterol/Ipratropium (Combivent) 1 Ea Aers, 1 Puffs Inhalation Via Inhaler Four Times Daily 11/27/13 Discontinued Amiodarone Hcl (Cordarone) 200 Mg Tab, 1 Tab Oral Daily 05/03/11 Discontinued Amiodarone Hcl (Cordarone) 200 Mg Tab, 1 Tab Oral Daily 08/28/10 Discontinued Amoxicillin/Clavulanate Potas (Augmentin 875 Mg) 875 Mg Tab, 875 Mg Oral Twice A Day 03/04/13 Discontinued Aspirin (Aspir-81) 81 Mg Tab, 81 Mg Oral Daily 02/05/13 Discontinued Bumetanide (Bumex) 1 Mg Tab, 1 Mg Oral Twice A Day 09/02/12 Discontinued Bumetanide (Bumex) 1 Mg Tab, 1 Mg Oral Twice A Day 01/07/12 Discontinued Bumetanide (Bumex) 1 Mg Tab, 1 Mg Oral Twice A Day 02/15/11 Discontinued Bumetanide (Bumex) 1 Mg Tab, 1 Tab Oral Twice A Day 08/28/10 Discontinued Carvedilol (Coreg) 3.125 Mg Tab, 3.125 Mg Oral Twice A Day for Heart Med 12/05 Discontinued Carvedilol (Coreg) 3.125 Mg Tab, 3.125 Mg Oral Twice A Day 01/27/13 Discontinued Carvedilol (Coreg) 3.125 Mg Tab, 3.125 Mg Oral Twice A Day 01/11/12 Discontinued Carvedilol (Coreg) 3.125 Mg Tab, 3.125 Mg Oral Twice A Day 04/04/11 Discontinued Carvedilol (Coreg) 12.5 Mg Tab, 0.5 Tab Oral Twice A Day 01/02/11 Discontinued Carvedilol (Coreg) 12.5 Mg Tab, 1 Tab Oral Twice A Day 08/28/10 Discontinued Ciprofloxacin Hcl (Cipro) 500 Mg Tab, 500 Mg Oral Twice A Day 04/06/16 Discontinued Ciprofloxacin Hcl (Cipro) 500 Mg Tab, 500 Mg Oral Twice A Day 11/02/14 Discontinued Ciprofloxacin Hcl (Cipro) 250 Mg Tab, 250 Mg Oral Twice A Day 02/21/11 Discontinued Citalopram Hydrobromide (Celexa) 20 Mg Tab, 2 Tab Oral Daily 08/28/10 Discontinued Clindamycin Hcl 300 Mg Cap, 300 Mg Oral Three Times A Day for Pneumonia 02/19 Discontinued Clindamycin Hcl 300 Mg Cap, 300 Mg Oral Three Times A Day 07/28/12 Discontinued Clopidogrel Bisulfate (Plavix) 75 Mg Tab, 1 Tab Oral Daily 08/28/10 Discontinued Colchicine 0.6 Mg Tab, 0.6 Mg Oral Daily for Pain 10/12/14 Discontinued Colchicine 0.6 Mg Tab, 0.6 Mg Oral Daily for Pain 10/06/13 Discontinued Colchicine 0.6 Mg Tab, 0.6 Mg Oral Daily 01/27/13 Discontinued Colchicine 0.6 Mg Tab, 0.6 Mg Oral Daily 01/11/12 Discontinued Colchicine 0.6 Mg Tab, 1 Tab Oral Daily 08/28/10 Discontinued Doxycycline Hyclate 100 Mg Tab, 100 Mg Oral Twice A Day 03/05/11 Discontinued Ferrous Sulfate (Iron) 325 Mg Tab, 1 Tab Oral Daily 08/28/10 Discontinued Ferrous Sulfate (Iron) 325 Mg Tab, 325 Mg Oral Daily 01/16/11 Discontinued Fluconazole (Diflucan) 100 Mg Tab, 100 Mg Oral Weekly for Prevent Infection 04/01/14 Discontinued Fluconazole (Diflucan) 100 Mg Tab, 100 Mg Oral Weekly for Prevent Infection 06/30/13 Discontinued Fluconazole (Diflucan) 100 Mg Tab, 100 Mg Oral Weekly 07/09/12 Discontinued Fluconazole (Diflucan) 150 Mg Tab, 150 Mg Oral Weekly 05/07/12 Discontinued Fluconazole (Diflucan) 150 Mg Tab, 150 Mg Oral Daily 06/03/12 Discontinued Fluticasone Propionate (Nasal) (Flonase) 0.05 % Spr, 1-[address] Nasal Daily for Stuffy Nose 02/12/14 Discontinued Fluticasone Propionate (Nasal) (Flonase) 0.05 % Spr, [address] Nasal Daily 10/04 Discontinued Furosemide (Lasix 80 Mg Po) 80 Mg Tab, 80 Mg Oral Daily for Not Specified Discontinued Furosemide (Lasix) 80 Mg Tab, 80 Mg Oral Twice A Day for Chf 04/07/14 Discontinued Furosemide (Lasix) 80 Mg Tab, 80 Mg Oral Twice A Day for Chf 11/26/13 Discontinued Furosemide (Lasix) 80 Mg Tab, 80 Mg Oral Twice A Day 11/05/13 Discontinued Gabapentin 600 Mg Tab, 1 Tab Oral Twice A Day 08/28/10 Discontinued Ibuprofen 800 Mg Tab, 800 Mg Oral Three Times A Day as needed for Muscle Pain & Inflammation 07/09/14 Discontinued Influenza Virus Vaccine (Fluzone) 0.5 Ml Inj, 0.5 Ml Intramuscular Onetime Discontinued Influenza Virus Vaccine (Fluzone) 0.5 Ml Inj, 0.5 Ml Intramuscular Onetime Discontinued Insulin Glargine (Lantus Solostar) Solostar Inj, 20 Unit Subcutaneously Bedtime for Diabetes 07/22/14 Discontinued Insulin Glargine (Lantus Solostar) Solostar Inj, 20 Unit Subcutaneously Bedtime for Diabetes 08/05/13 Discontinued Insulin Glargine (Lantus Solostar) Solostar Inj, 20 Unit Subcutaneously Bedtime 09/12/12 Discontinued Insulin Glargine (Lantus) 100 Mg/Ml Inj, 24 Units Subcutaneously Bedtime 01/01 Discontinued Insulin Regular (Human) (Novolin R U-100) 1 Ml Inj, 5 Units Subcutaneously Before Meals 08/28/10 Discontinued Isodril , 10 Mg Oral Twice A Day 03/16/11 Discontinued Levofloxacin (Levaquin) 750 Mg Tab, 750 Mg Oral Daily for Pneumonia 02/19/14 Discontinued Levofloxacin (Levaquin) 500 Mg Tab, 500 Mg Oral Daily 05/29/13 Discontinued Levofloxacin (Levaquin) 750 Mg Tab, 750 Mg Oral Daily 12/10/12 Discontinued Levofloxacin (Levaquin) 500 Mg Tab, 500 Mg Oral Daily 12/29/12 Discontinued Levofloxacin (Levaquin) 500 Mg Tab, 500 Mg Oral Daily 09/04/12 Discontinued Levofloxacin (Levaquin) 750 Mg Tab, 750 Mg Oral Daily 06/28/12 Discontinued Levothyroxine Sodium (Synthroid) 75 Mcg Tab, 1 Tab Oral Daily for Thyroid 07/08 Discontinued Levothyroxine Sodium (Synthroid) 75 Mcg Tab, 1 Tab Oral Daily for Thyroid 12/05 Discontinued Levothyroxine Sodium (Synthroid) 75 Mcg Tab, 1 Tab Oral Daily 02/05/13 Discontinued Levothyroxine Sodium (Synthroid) 75 Mcg Tab, 1 Tab Oral Daily 01/11/12 Discontinued Levothyroxine Sodium (Synthroid) 75 Mcg Tab, 1 Tab Oral Daily 07/31/11 Discontinued Levothyroxine Sodium (Synthroid) 75 Mcg Tab, 1 Tab Oral Daily 05/03/11 Discontinued Levothyroxine Sodium (Synthroid) 75 Mcg Tab, 1 Tab Oral Daily 08/28/10 Discontinued Lisinopril 5 Mg Tab, 5 Mg Oral Daily for Chf 02/19/14 Discontinued Lorazepam (Ativan) 0.5 Mg Tab, 0.5 Mg Oral Every 4 Hours As Needed for Anxiety 06/29/15 Discontinued Lorazepam (Ativan) 0.5 Mg Tab, 0.5 Mg Oral Every 4 Hours As Needed for Anxiety 02/22/15 Discontinued Lorazepam (Ativan) 0.5 Mg Tab, 0.5 Mg Oral Every 4 Hours As Needed for Anxiety 12/14/14 Discontinued Lorazepam (Ativan) 0.5 Mg Tab, 0.5 Mg Oral Every 4 Hours As Needed for Anxiety 08/31/14 Discontinued Lorazepam (Ativan) 0.5 Mg Tab, 0.5 Mg Oral Every 4 Hours As Needed for Anxiety 07/02/14 Discontinued Lorazepam (Ativan) 0.5 Mg Tab, 0.5 Mg Oral Every 4 Hours As Needed for Anxiety 04/07/14 Discontinued Lorazepam (Ativan) 0.5 Mg Tab, 0.5 Mg Oral Every 4 Hours As Needed for Anxiety 12/22/13 Discontinued Lorazepam (Ativan) 0.5 Mg Tab, 0.5 Mg Oral Every 4 Hours As Needed for Anxiety 10/06/13 Discontinued Lorazepam (Ativan) 0.5 Mg Tab, 0.5 Mg Oral Every 4 Hours As Needed 08/25/13 Discontinued Lorazepam (Ativan) 0.5 Mg Tab, 0.5 Mg Oral Every 4 Hours As Needed 05/27/13 Discontinued Lorazepam (Ativan) 0.5 Mg Tab, 0.5 Mg Oral Every 4 Hours As Needed 09/02/12 Discontinued Magnesium Oxide (Mag-Ox 400) 400 Mg Tab, 400 Mg Oral Twice A Day for Nutrient Replacement 05/05/15 Discontinued Magnesium Oxide (Mag-Ox 400) 400 Mg Tab, 400 Mg Oral Twice A Day for Nutrient Replacement 04/07/14 Discontinued Magnesium Oxide (Mag-Ox 400) 400 Mg Tab, 400 Mg Oral Twice A Day for Nutrient Replacement 06/30/13 Discontinued Magnesium Oxide (Mag-Ox 400) 400 Mg Tab, 400 Mg Oral Twice A Day 06/25/12 Discontinued Magnesium Oxide (Mag-Ox 400) 400 Mg Tab, 400 Mg Oral Twice A Day 02/05/12 Discontinued Magnesium Oxide (Mag-Ox 400) 400 Mg Tab, 400 Mg Oral Twice A Day 04/04/11 Discontinued Magnesium Oxide 400 Mg Cap, 1 Tab Oral Three Times A Day 08/28/10 Discontinued Metoclopramide Hcl 5 Mg Tab, 1 Tab Oral Four Times Daily 08/28/10 Discontinued Metolazone (Zaroxolyn) 5 Mg Tab, 1 Tab Oral Every 3 Days 08/28/10 Discontinued Metoprolol Succinate (Toprol Xl) 25 Mg Tab, 25 Mg Oral Bedtime 09/30/15 Discontinued Minocycline Hcl 100 Mg Cap, 100 Mg Oral Daily for Antibiotic 07/14/13 Discontinued Minocycline Hcl 100 Mg Cap, 100 Mg Oral D@06 09/24/12 Discontinued Minocycline Hcl 100 Mg Cap, 100 Mg Oral Daily 07/25/12 Discontinued Minocycline Hcl 100 Mg Cap, 100 Mg Oral Daily 07/09/12 Discontinued Nitroglycerin 0.4 Mg Sub, 0.4 Mg Sublingual As Needed for Angina Pain Discontinued Nitroglycerin 0.4 Mg Sub, 0.4 Mg Sublingual As Needed for Angina Pain Discontinued Nitroglycerin 0.4 Mg Sub, 0.4 Mg Sublingual As Needed 04/14/12 Discontinued Nitroglycerin 0.4 Mg Sub, 0.4 Mg Sublingual As Needed 07/31/11 Discontinued Nitroglycerin 0.4 Mg Sub, 0.4 Mg Sublingual As Needed 04/07/08 Discontinued Ondansetron (Zofran Tab) 4 Mg Tab, 4 Mg Oral Daily as needed for Nausea 02/08 Discontinued Ondansetron (Zofran Tab) 4 Mg Tab, 4 Mg Oral Daily as needed for Nausea 11/27 Discontinued Ondansetron (Zofran Odt) 4 Mg Tab, 4 Mg Oral Every 4 Hours As Needed Discontinued Ondansetron (Zofran Odt) 4 Mg Tab, 4 Mg Oral Every 4 Hours As Needed Discontinued Ondansetron (Zofran Odt) 4 Mg Tab, 4 Mg Oral Every 4 Hours As Needed Discontinued Ondansetron (Zofran Odt) 4 Mg Tab, 4 Mg Oral Daily 08/17/11 Discontinued Oxycodone Hcl (Oxycontin) 40 Mg Tab, 40 Mg Oral Daily 01/27/12 Discontinued Oxycodone/Acetaminophen (Percocet 10/325 Mg) 1 Ea Tab, 1 Tab Oral Four Times Daily 08/28/10 Discontinued Polyethylene Glycol (Glycolax) 3,350 Nf Pow, 08/28/10 Discontinued Potassium Chloride (Potassium Chloride Er) 20 Meq Tab, 20 Meq Oral Twice A Day 08/03/14 Discontinued Potassium Chloride (Potassium Chloride Er) 20 Meq Tab, 20 Meq Oral Twice A Day for Replacement 11/27/13 Discontinued Potassium Chloride (Klor-Con 10) 10 Meq Tab, 10 Meq Oral 2 4 Times A Day 06/03 Discontinued Potassium Chloride (Klor-Con 10) 10 Meq Tab, 10 Meq Oral 3 Twice A Day Discontinued Potassium Chloride (Potassium Chloride Cr) 10 Meq Tab, 4 Tab Oral Three Times A Day 08/28/10 Discontinued Potassium Chloride Microencaps (Klor-Con M20) 20 Meq Tab, 2 Tab Oral Three Times A Day 01/22/12 Discontinued Ranitidine Hcl (Zantac) 150 Mg Tab, 150 Mg Oral Twice A Day for Indigestion 04/21/15 Discontinued Ranitidine Hcl (Zantac) 150 Mg Tab, 150 Mg Oral Twice A Day for Indigestion 04/01/14 Discontinued Ranitidine Hcl (Zantac) 150 Mg Tab, 150 Mg Oral Twice A Day for Indigestion 06/03/12 Discontinued Ranitidine Hcl (Zantac) 150 Mg Tab, 150 Mg Oral Twice A Day 04/21/12 Discontinued Sertraline Hcl (Zoloft) 100 Mg Tab, 100 Mg Oral Daily for Antidepressant Discontinued Sertraline Hcl (Zoloft) 100 Mg Tab, 100 Mg Oral Daily for Antidepressant 06/06 Discontinued Sertraline Hcl (Zoloft) 100 Mg Tab, 100 Mg Oral Daily 10/02/12 Discontinued Sertraline Hcl (Zoloft) 100 Mg Tab, 100 Mg Oral Daily 09/02/12 Discontinued Sertraline Hcl (Zoloft) 100 Mg Tab, 100 Mg Oral Daily 03/17/12 Discontinued Sertraline Hcl (Zoloft) 100 Mg Tab, 100 Mg Oral Daily 03/16/11 Discontinued Sertraline Hcl (Zoloft) 100 Mg Tab, 100 Mg Oral Daily 02/28/11 Discontinued Sertraline Hcl (Zoloft) 100 Mg Tab, 100 Mg Oral Daily 03/16/11 Discontinued Sertraline Hcl (Zoloft) 100 Mg Tab, 100 Mg Oral Twice A Day 02/15/11 Discontinued Simvastatin (Zocor) 20 Mg Tab, 1 Tab Oral Bedtime 08/28/10 Discontinued Spironolactone (Aldactone) 100 Mg Tab, 100 Mg Oral Daily Before Lunch for Not Specified 03/16/15 Discontinued Spironolactone (Aldactone) 100 Mg Tab, 100 Mg Oral Twice A Day 06/02/14 Discontinued Spironolactone (Aldactone) 100 Mg Tab, 100 Mg Oral Daily 11/03/12 Discontinued Spironolactone (Aldactone) 100 Mg Tab, 100 Mg Oral Daily 02/05/12 Discontinued Spironolactone (Aldactone) 100 Mg Tab, 100 Mg Oral Daily 05/03/11 Discontinued Spironolactone (Aldactone) 100 Mg Tab, 100 Mg Oral Daily 03/14/11 Discontinued Spironolactone (Aldactone) 100 Mg Tab, 1 Tab Oral Daily 08/28/10 Discontinued Sulfamethoxazole-Trimethoprim (Bactrim Ds) 1 Tab Tab, 1 Tab Oral Twice A Day 02/15/14 Discontinued Sulfamethoxazole-Trimethoprim (Bactrim Ds) 1 Tab Tab, 1 Tab Oral Twice A Day 02/16/14 Discontinued Sulfamethoxazole-Trimethoprim (Bactrim Ds) 1 Tab Tab, 1 Tab Oral Twice A Day 02/26/13 Discontinued Sulfamethoxazole-Trimethoprim (Bactrim Ds) 1 Tab Tab, 2 Tab Oral Twice A Day 07/28/12 Discontinued Sulfamethoxazole-Trimethoprim (Bactrim Ds) 1 Tab Tab, 1 Tab Oral Twice A Day 06/20/11 Discontinued Sulfamethoxazole-Trimethoprim (Bactrim Ds) 1 Tab Tab, 1 Tab Oral Twice A Day 06/22/11 Discontinued Sulfamethoxazole-Trimethoprim (Bactrim Ds) 1 Tab Tab, 1 Tab Oral Twice A Day 06/11/11 Discontinued Sulfamethoxazole-Trimethoprim (Bactrim Ds) 1 Tab Tab, 1 Tab Oral Twice A Day 12/14/10 Discontinued Tamsulosin Hcl (Flomax) 0.4 Mg Cap, 0.4 Mg Oral Daily for Dysurea 10/13/14 Discontinued Tamsulosin Hcl (Flomax) 0.4 Mg Cap, 0.4 Mg Oral Daily for Dysurea 06/30/13 Discontinued Tamsulosin Hcl (Flomax) 0.4 Mg Cap, 0.4 Mg Oral Daily 09/12/12 Discontinued Tamsulosin Hcl (Flomax) 0.4 Mg Cap, 0.4 Mg Oral Daily As Needed 05/07/12 Discontinued Tramadol Hcl (Ultram) 50 Mg Tab, 1-2 Tab Oral Every 6 Hours As Needed for Breakthrough Pain 06/29/15 Discontinued Tramadol Hcl (Ultram) 50 Mg Tab, 1-2 Tab Oral Every 6 Hours As Needed for Breakthrough Pain 04/06/15 Discontinued Tramadol Hcl (Ultram) 50 Mg Tab, 1-2 Tab Oral Every 6 Hours As Needed for Breakthrough Pain 02/09/15 Discontinued Tramadol Hcl (Ultram) 50 Mg Tab, 1-2 Tab Oral Every 6 Hours As Needed for Breakthrough Pain 12/20/14 Discontinued Tramadol Hcl (Ultram) 50 Mg Tab, 1-2 Tab Oral Every 6 Hours As Needed for Breakthrough Pain 10/13/14 Discontinued Tramadol Hcl (Ultram) 50 Mg Tab, 1-2 Tab Oral Every 6 Hours As Needed for Breakthrough Pain 06/02/14 Discontinued Tramadol Hcl (Ultram) 50 Mg Tab, 1-2 Tab Oral Every 6 Hours As Needed for Breakthrough Pain 04/01/14 Discontinued Tramadol Hcl (Ultram) 50 Mg Tab, 1-2 Tab Oral Every 6 Hours As Needed for Breakthrough Pain 07/14/13 Discontinued Tramadol Hcl (Ultram) 50 Mg Tab, 1 - 2 Tab Oral Every 6 Hours As Needed 02/18 Discontinued Tramadol Hcl (Ultram) 50 Mg Tab, 1 - 2 Tab Oral Every 6 Hours As Needed 12/23 Discontinued Tramadol Hcl (Ultram) 50 Mg Tab, 1 - 2 Tab Oral Every 6 Hours As Needed 12/23 Discontinued Tramadol Hcl (Ultram) 50 Mg Tab, 1 - 2 Tab Oral Every 6 Hours As Needed 06/03 Discontinued Tramadol Hcl (Ultram) 50 Mg Tab, 1 - 2 Tab Oral Every 6 Hours As Needed 01/10 Discontinued Tramadol Hcl (Ultram) 50 Mg Tab, 1 - 2 Tabs Oral Four Times Daily 08/28/10 Discontinued Tramadol Hcl (Ultram) 50 Mg Tab, 1 - 2 Tab Oral Every 6 Hours As Needed 01/16 Discontinued Social History Social History Problem Response Recorded Date/Time Onset Date Status Hx Alcohol Use No 06/16/2015 2:45pm Not Applicable Not Applicable Hx Substance Use No 06/16/2015 2:45pm Not Applicable Not Applicable Hx Tobacco Use No 06/16/2015 2:45pm Not Applicable Not Applicable Hx Smoking Exposure No 06/16/2015 2:45pm Not Applicable Not Applicable Smoking Status Former smoker 05/16/2016 2:46pm Not Applicable Not Applicable Query Response Start Date Stop Date Smoking Status Former smoker Hospital Discharge Instructions No hospital discharge instructions. Plan of Care Discharge Date 05/16/16 6:05pm Disposition 01 HOME, SELF-CARE Condition at Discharge Stable Prescriptions See Medication Section Referrals APARNA AGUILAR MD Address: [address] [place] [address] [place] [id number] Additional Instructions/Education Rest and drink plenty of fluids. Continue current medications. Return to ER if worsening weakness, change in mental status, decreased responsiveness, other concerns or symptoms. Functional Status No functional status results. Allergies, Adverse Reactions, Alerts Allergen Type Severity Reaction Status Last Updated Allopurinol ([id number]) Allergy Unknown Active 06/16/15 Codeine ([id number]) Adverse Reaction Unknown Active 06/16/15 Metoclopramide ([id number]) Allergy Unknown Active 06/16/15 Venlafaxine ([id number]) Allergy Unknown Active 06/16/15 Celecoxib ([id number]) Adverse Reaction Unknown Active 06/16/15 Cephalosporins ([id number]) Allergy Unknown Active 06/16/15 Immunizations Immunization Event Date Type Not Given Reason Dose Number Lot Number Seasoner Hand Influenza Vaccine, Inactivated 03/24/12 Administered 1 [id number] Corpofi Influenza Vaccine, Inactivated 04/09/13 Administered 2 [id number] SANOFI Pneumococcal Polysaccharide Vaccine 23 07/30/05 Administered 1 Influenza, high dose, seasonal 03/17/15 Historical 1 Query Response on File Recorded Date/Time Hx Hepatitis A Vaccination No 12/08/15 3:18pm Vital Signs Acute Vital Signs Vital Response Date/Time Blood Pressure 151/87 mm Hg 05/16/2016 5:59pm Blood Pressure Mean 74 mm Hg 11/27/2013 1:24pm Blood Pressure Mean 108 mm Hg 05/16/2016 5:59pm Temperature (Fahrenheit) 98.0 degrees F (96.0 - 99.9) 05/16/2016 2:42pm Temperature (Calculated Celsius) 36.54744 degrees C 05/16/2016 2:42pm Temperature (Calculated Celsius) 36.11788 degrees C (36.4 - 37.5) 11/27/2013 1:24pm Temperature (Fahrenheit) 98.4 degrees F (96.0 - 99.9) 11/27/2013 1:24pm Temperature Source Oral 12/10/2015 12:12pm Temperature Source Oral 05/16/2016 2:42pm Temp 98.4 degrees F (96.0 - 99.9) 11/27/2013 1:22pm Temperature (Calculated Celsius) 36.80709 degrees C 11/27/2013 1:22pm Pulse Pulse Rate (adult) 62 bpm (60 - 100) 12/10/2015 12:12pm Pulse Rate (adult) 115 bpm (60 - 100) 11/27/2013 1:24pm Pulse Rate: ED 103 bpm 05/16/2016 5:59pm Respiratory Rate 18 breaths per minute (10 - 20) 05/16/2016 5:11pm Respiratory Rate 14 bpm (10 - 20) 11/27/2013 1:24pm Height (Feet) 5 ft 05/16/2016 2:42pm Height (Inches) 6.0 in. 05/16/2016 2:42pm Weight (Pounds) 270.0 lbs 05/16/2016 2:42pm Height 5 ft 6 in 05/16/2016 2:42pm Weight 270 lb 05/16/2016 2:42pm Body Mass Index 43.6 kg/m^2 05/16/2016 2:42pm Ambulatory Vital Signs Vital Response Date/Time Height 5 ft 5 in 04/30/2016 3:26pm Weight 272 lbs 04/30/2016 3:26pm Blood Pressure 100/60 mm Hg 04/30/2016 3:26pm Body Surface Area 2.45 m2 04/30/2016 3:26pm Body Mass Index 45.3 kg/m2 04/30/2016 3:26pm Pulse Oximetry Pulse Oximetry 04/30/2016 3:26pm Results Laboratory Results Test Name Result Units Flags Reference Collection Date/Time Result Date/ Time Comments Total Creatine Kinase 52 U/L 10-180 05/21/2014 7:40pm 05/21/2014 8: 08pm Creatine Kinase MB 4.7 ng/mL 0.0-6.0 05/21/2014 7:40pm 05/21/2014 8: 18pm Prothrombin Time 11.5 SECONDS 9.0-12.0 07/09/2014 6:00am 07/09/2014 6: 33am Prothromb Time International Ratio 1.07 L 2.0-3.0 07/09/2014 6:00am 6:33am Influenza Virus Type A (PCR) NEGATIVE NEGATIVE 07/09/2014 6:15am 7:45am InFluenza Virus Type A (H1N1) (PCR) NOT DETECTED NEGATIVE 07/09/2014 6 :15am 07/09/2014 7:45am Influenza Virus Type B (PCR) NEGATIVE NEGATIVE 07/09/2014 6:15am 7:45am Platelet Estimate DECREASED NORMAL 08/06/2014 5:58am 08/06/2014 7: 36am NO EVIDENCE OF PLATELET CLUMPING ON SLIDE REVIEW Arterial Blood pH 7.32 L 7.35-7.45 10/21/2014 10:50am 10/21/2014 11: 53am Blood Gas PCO2 58 mmHg H 35-45 10/21/2014 10:50am 10/21/2014 11:53am Blood Gas PO2 103 mmHg H 89-100 10/21/2014 10:50am 10/21/2014 11:53am Blood Gas Base Excess 2.5 mEq/L 10/21/2014 10:50am 10/21/2014 11: 53am Arterial Blood Total CO2 31.7 mM/L H 10/21/2014 10:50am 2014 11:53am Arterial Blood HCO3 29.9 mEq/L H 10/21/2014 10:50am 10/21/2014 11: 53am DONE ON O2 AT 4.5 LPM VIA N/C.. THE RESULTS WERE GIVEN TO DR. PACKER. Lipase 15 U/L 8-57 12/30/2014 12:20pm 12/30/2014 12:44pm D-Dimer Quantitative (PE/DVT) 486 ng/mL <230 02/22/2015 11:00am 2014 11:56am Results <230 ng/mL juan davis negative predictability for DVT or PE Urine RBC NONE /hpf NONE 05/23/2015 6:27am 05/23/2015 9:47am Urine WBC 0-1 /hpf NONE 05/23/2015 6:27am 05/23/2015 9:47am Urine Epithelial Cells RARE /lpf 05/23/2015 6:27am 05/23/2015 9:47am Urine Bacteria NONE /hpf NONE 05/23/2015 6:27am 05/23/2015 9:47am Urine Casts 5-10 HYALINE /lpf NONE 05/23/2015 6:27am 05/23/2015 9:47am Bedside Glucose 123 mg/dL H 70-120 05/23/2015 5:29pm 07/02/2015 3:38pm Thyroid Stimulating Hormone (TSH) 11.63 uIU/ml H 0.34-5.60 09/30/2015 5: 23pm 09/30/2015 6:50pm B-Type Natriuretic Peptide 315.2 pg/mL H 0.0-100.0 11/14/2015 11:18am 1:37pm Performed at: [address] [id number] School Custodian: ROJAS Whitaker MD, Phone: [phone] Bedside Glucose 120 mg/dL 70-120 12/10/2015 10:34am 12/10/2015 10:38am Notify Nurse Glycated Hemoglobin 6.0 % 4.0-6.0 12/08/2015 12:12pm 12/09/2015 3:53pm Lactic Acid Level 1.0 mmol/L 0.5-2.2 12/08/2015 12:40pm 12/08/2015 1: 03pm B-Type Natriuretic Peptide 597 pg/mL H 15-100 12/08/2015 12:12pm 2015 4:27pm Hemoglobin A1c 6.6 % H 4.8-5.6 04/17/2016 11:35am 04/18/2016 10:06am Performed at: [address] [id number] School Custodian: ROJAS Whitaker MD, Phone: [phone] Magnesium Level 2.2 mg/dL 1.6-2.3 04/17/2016 11:35am 04/18/2016 8:01am Performed at: [address] [id number] School Custodian: ROJAS Whitaker MD, Phone: [phone] White Blood Count 4.1 x10E3/uL 3.4-10.8 04/17/2016 11:35am 04/18/2016 6 :08am Red Blood Count 4.57 x10E6/uL 4.14-5.80 04/17/2016 11:35am 04/18/2016 6 :08am Hemoglobin 13.2 g/dL 12.6-17.7 04/17/2016 11:35am 04/18/2016 6:08am Hematocrit 42.4 % 37.5-51.0 04/17/2016 11:35am 04/18/2016 6:08am Mean Corpuscular Volume 93 fL 79-97 04/17/2016 11:35am 04/18/2016 6: 08am Mean Corpuscular Hemoglobin 28.9 pg 26.6-33.0 04/17/2016 11:35am 2015 6:08am Mean Corpuscular Hemoglobin Concent 31.1 g/dL L 31.5-35.7 04/17/2016 11: 35am 04/18/2016 6:08am Red Cell Distribution Width 14.5 % 12.3-15.4 04/17/2016 11:35am 2015 6:08am Platelet Count 138 x10E3/uL L 150-379 04/17/2016 11:35am 04/18/2016 6: 08am Neutrophils % (Send Out) 45 % . 04/17/2016 11:35am 04/18/2016 6:08am Lymphocytes 32 % . 04/17/2016 11:35am 04/18/2016 6:08am Monocytes 12 % . 04/17/2016 11:35am 04/18/2016 6:08am Eosinophils 10 % . 04/17/2016 11:35am 04/18/2016 6:08am Basophils 1 % . 04/17/2016 11:35am 04/18/2016 6:08am Absolute Neutrophils (auto) 1.9 x10E3/uL 1.4-7.0 04/17/2016 11:35am 6:08am Absolute Lymphocytes (auto) 1.3 x10E3/uL 0.7-3.1 04/17/2016 11:35am 6:08am Absolute Monocytes (auto) 0.5 x10E3/uL 0.1-0.9 04/17/2016 11:35am 04/18 6:08am Absolute Eosinophils (auto) 0.4 x10E3/uL 0.0-0.4 04/17/2016 11:35am 6:08am Absolute Basophils (auto) 0.0 x10E3/uL 0.0-0.2 04/17/2016 11:35am 04/18 6:08am Immature Granulocytes 0 % . 04/17/2016 11:35am 04/18/2016 6:08am Absolute Immature Granulocyte (auto 0.0 x10E3/uL 0.0-0.1 04/17/2016 11: 35am 04/18/2016 6:08am Performed at: [facility] - [facility] [address] [address], [place], [place] [id number] School Custodian: ROJAS Whitaker MD, Phone: [phone] Glucose Level 90 mg/dL 65-99 04/17/2016 11:35am 04/18/2016 7:18am Blood Urea Nitrogen 19 mg/dL 8-04/17/2016 11:35am 04/18/2016 7:18am Creatinine 1.02 mg/dL 0.76-1.27 04/17/2016 11:35am 04/18/2016 7:18am BUN/Creatinine Ratio 19 10-04/17/2016 11:35am 04/18/2016 7:18am Sodium Level 145 mmol/L H 136-144 04/17/2016 11:35am 04/18/2016 7:18am Please note reference interval change Potassium Level 4.4 mmol/L 3.5-5.2 04/17/2016 11:35am 04/18/2016 7: 18am Please note reference interval change Chloride Level 98 mmol/L 97-106 04/17/2016 11:35am 04/18/2016 7:18am Please note reference interval change Carbon Dioxide Level 31 mmol/L H 18-29 04/17/2016 11:35am 04/18/2016 7: 18am Calcium Level 9.2 mg/dL 8.6-10.2 04/17/2016 11:35am 04/18/2016 7:18am Serum Total Protein 7.3 g/dL 6.0-8.5 04/17/2016 11:35am 04/18/2016 7: 18am Albumin 4.0 g/dL 3.5-4.8 04/17/2016 11:35am 04/18/2016 7:18am Globulin 3.3 g/dL 1.5-4.5 04/17/2016 11:35am 04/18/2016 7:18am Albumin/Globulin Ratio 1.2 1.1-2.5 04/17/2016 11:35am 04/18/2016 7: 18am Total Bilirubin 0.4 mg/dL 0.0-1.2 04/17/2016 11:35am 04/18/2016 7:18am Alkaline Phosphatase 101 IU/L 39-117 04/17/2016 11:35am 04/18/2016 7: 18am Aspartate Amino Transf (AST/SGOT) 26 IU/L 0-40 04/17/2016 11:35am 04/18 7:18am Alanine Aminotransferase (ALT/SGPT) 16 IU/L 0-44 04/17/2016 11:35am 7:18am Performed at: DA - [facility] [place] [address], [place], [place] [id number] School Custodian: ROJAS Whitaker MD, Phone: [phone] EGFR IF NONAFRICN AM 72 >59 04/17/2016 11:35am 04/18/2016 7:18am Result Units: mL/min/1.73 EGFR IF AFRICN AM 83 >59 04/17/2016 11:35am 04/18/2016 7:18am Result Units: mL/min/1.73 White Blood Count 4.5 K/uL L 5.0-10.0 05/16/2016 3:20pm 05/16/2016 3: 29pm Red Blood Count 4.41 M/uL L 4.60-5.40 05/16/2016 3:20pm 05/16/2016 3: 29pm Hemoglobin 13.1 g/dL L 14.0-18.0 05/16/2016 3:20pm 05/16/2016 3:29pm Hematocrit 42.6 % 40.0-54.0 05/16/2016 3:20pm 05/16/2016 3:29pm Mean Corpuscular Volume 96.6 fL H 80.0-94.0 05/16/2016 3:20pm 2015 3:29pm Mean Corpuscular Hemoglobin 29.7 pg 26.0-33.0 05/16/2016 3:20pm 2015 3:29pm Mean Corpuscular Hemoglobin Concent 30.8 g/dL L 31.0-36.0 05/16/2016 3: 20pm 05/16/2016 3:29pm Red Cell Distribution Width 13.9 % 11.5-14.5 05/16/2016 3:20pm 2015 3:29pm RDW Standard Deviation 49.4 fL H 35.1-43.9 05/16/2016 3:20pm 05/16/2016 3:29pm Platelet Count 121 K/uL L 130-400 05/16/2016 3:20pm 05/16/2016 3:29pm Mean Platelet Volume 10.5 fL 7.0-11.0 05/16/2016 3:20pm 05/16/2016 3: 29pm Neutrophils (%) (Auto) 45.8 % 42.0-75.0 05/16/2016 3:20pm 05/16/2016 3: 29pm Lymphocytes (%) (Auto) 25.8 % 16.0-44.0 05/16/2016 3:20pm 05/16/2016 3: 29pm Monocytes (%) (Auto) 17.4 % H 2.0-9.0 05/16/2016 3:20pm 05/16/2016 3: 29pm Eosinophils (%) (Auto) 9.9 % H 0-7.0 05/16/2016 3:20pm 05/16/2016 3: 29pm Basophils (%) (Auto) 0.9 % 0-1 05/16/2016 3:20pm 05/16/2016 3:29pm Immature Granulocyte % (Auto) 0.2 % 0-0.5 05/16/2016 3:20pm 05/16/2016 3:29pm Nucleated Red Blood Cells % 0.0 /100WBC 0-0 05/16/2016 3:20pm 2015 3:29pm Neutrophils # (Auto) 2.1 K/uL 1.9-8.0 05/16/2016 3:20pm 05/16/2016 3: 29pm Lymphocytes # (Auto) 1.2 K/uL 0.9-5.2 05/16/2016 3:20pm 05/16/2016 3: 29pm Monocytes # (Auto) 0.8 K/uL 0.16-1.0 05/16/2016 3:20pm 05/16/2016 3: 29pm Eosinophils # (Auto) 0.5 K/uL 0-0.8 05/16/2016 3:20pm 05/16/2016 3: 29pm Basophils # (Auto) 0.0 K/uL 0-0.2 05/16/2016 3:20pm 05/16/2016 3:29pm Immature Granulocyte # (Auto) 0.01 K/uL 0-0.40 05/16/2016 3:20pm 2015 3:29pm Nucleated Red Blood Cells # 0.00 K/uL 0.0-0.012 05/16/2016 3:20pm 05/16 3:29pm Urine Color YELLOW 05/16/2016 3:50pm 05/16/2016 4:17pm Urine Appearance CLEAR 05/16/2016 3:50pm 05/16/2016 4:17pm Urine Glucose (UA) NEGATIVE NEGATIVE 05/16/2016 3:50pm 05/16/2016 4: 17pm Urine Bilirubin NEGATIVE NEGATIVE 05/16/2016 3:50pm 05/16/2016 4: 17pm Urine Ketones TRACE NEGATIVE 05/16/2016 3:50pm 05/16/2016 4:17pm Urine Specific [place] 1.015 1.005-1.030 05/16/2016 3:50pm 2015 4:17pm Urine Occult Blood NEGATIVE NEGATIVE 05/16/2016 3:50pm 05/16/2016 4: 17pm Urine pH 6.0 4.5-8.0 05/16/2016 3:50pm 05/16/2016 4:17pm Urine Protein NEGATIVE NEGATIVE 05/16/2016 3:50pm 05/16/2016 4:17pm Urine Urobilinogen 0.2 E.U./dL 0.2-1.0 05/16/2016 3:50pm 05/16/2016 4: 17pm Urine Nitrate NEGATIVE NEGATIVE 05/16/2016 3:50pm 05/16/2016 4:17pm Urine Leukocyte Esterase NEGATIVE NEGATIVE 05/16/2016 3:50pm 2015 4:17pm Random Glucose 121 mg/dL H 65-115 05/16/2016 3:20pm 05/16/2016 3:46pm Blood Urea Nitrogen 23 mg/dL 8-25 05/16/2016 3:20pm 05/16/2016 3:46pm Creatinine 1.54 mg/dL 0.9-1.6 05/16/2016 3:2005/16/2016 3:46pm Glomerular Filtration Rate Calc 44.26 mL/min 05/16/2016 3:20pm 2015 3:46pm MULTIPLY RESULT BY 1.210 IF THE PATIENT IS -SWAZI Units are mL/min/1.73 m2 > 60 Normal kidney function 30-59 Moderately decreased kidney function 15-29 Severely decreased kidney function <15 End-stage kidney failure BUN/Creatinine Ratio 14.9 05/16/2016 3:20pm 05/16/2016 3:46pm Sodium Level 129 mEq/L L 133-145 05/16/2016 3:20pm 05/16/2016 3:46pm Potassium Level 4.0 mEq/L 3.5-5.1 05/16/2016 3:20pm 05/16/2016 3:46pm Chloride Level 95 mEq/L L 98-116 05/16/2016 3:20pm 05/16/2016 3:46pm Carbon Dioxide Level 30 mEq/L 22-34 05/16/2016 3:2005/16/2016 3: 46pm Anion Gap 8.0 6-13 05/16/2016 3:20pm 05/16/2016 3:46pm Calcium Level 8.5 mg/dL 8.2-10.6 05/16/2016 3:20pm 05/16/2016 3:46pm Magnesium Level 2.0 mg/dL 1.3-2.5 05/16/2016 3:20pm 05/16/2016 3:46pm Total Protein 7.6 gm/dL 6.0-8.4 05/16/2016 3:2005/16/2016 3:46pm Albumin 3.8 gm/dL 3.2-5.0 05/16/2016 3:20pm 05/16/2016 3:46pm Globulin 3.8 gm/dL H 2.0-3.0 05/16/2016 3:20pm 05/16/2016 3:46pm Albumin/Globulin Ratio 1.0 L 1.4-2.4 05/16/2016 3:20pm 05/16/2016 3: 46pm Total Bilirubin 0.8 mg/dL 0.1-1.3 05/16/2016 3:20pm 05/16/2016 3:46pm Alkaline Phosphatase 115 U/L 35-125 05/16/2016 3:20pm 05/16/2016 3: 46pm Aspartate Amino Transf (AST/SGOT) 33 U/L 5-40 05/16/2016 3:20pm 2015 3:46pm Alanine Aminotransferase (ALT/SGPT) 25 U/L 540 05/16/2016 3:20pm 05/16 3:46pm Troponin I 0.01 ng/mL 0.0-0.02 05/16/2016 3:20pm 05/16/2016 3:46pm C-Reactive Protein 10.1 mg/L H <6.0 05/16/2016 3:20pm 05/16/2016 3:46pm Bedside Troponin I < 0.05 ng/mL 0.00-0.05 11/27/2013 1:15am 11/27/2013 1:17am <0.05 ng/mL=NORMAL 0.05 - 0.40 ng/mL=CARDIAC CONDITION >0.40 ng/mL=SUGGESTS AMI Neutrophils 46.0 % 42.0-75.0 02/14/2014 6:05am 02/14/2014 7:18am Lymphocytes (Manual) 26.0 % 21.0-51.0 02/14/2014 6:05am 02/14/2014 7: 18am Monocytes (Manual) 16.0 % H 2.0-9.0 02/14/2014 6:05am 02/14/2014 7:18am Eosinophils (Manual) 12.0 % H 0-7.0 02/14/2014 6:05am 02/14/2014 7:18am Basophils (Manual) 0.0 % 0-1 02/14/2014 6:05am 02/14/2014 7:18am Vancomycin Level Trough 16.5 mcg/mL *H 5-15 02/14/2014 9:05pm 02/14/2014 9:55pm CRITICAL RESULT VERIFIED AND CALLED TO CARLOS ON 3MS AT 2154 BY NRD. 10-15 mcg/mL therapeutic trough level may be appropriate for more serious infections such as bacteremia, endocarditis, or osteomyelitis. 15-20 mcg/mL therapeutic trough level may be appropriate for nosocomial pneumonia or meningitis. Conditions such as changing renal function, additional aminoglycoside therapy, or risk for nephrotoxicity must be considered when determining the appropriate Vancomycin trough therapeutic range. Microbiology Results Procedure Source Organism/Result Collection Date/Time Result Date/Time Result Status Sputum Culture Sputum, Expectorated Sputum PROTEUS MIRABILIS 05/24/2015 2: 30am 05/26/2015 8:13am Final Blood Culture Blood No growth. 12/08/2015 1:51pm 12/09/2015 1:53am Final Wound Culture Scrotum CORYNEBACTERIUM SPECIES 12/01/2013 2:30pm 2013 10:34am Final PSEUDOMONAS AERUGINOSA 12/01/2013 2:30pm 12/03/2013 10:34am Final Procedures No known history of procedures. Encounters Encounter Location Arrival/Admit Date Discharge/Depart Date Attending Provider Departed Emergency Room [facility] 05/16/16 2:39pm 6:05pm JOBY OLEARY M.D. Office Visit [facility] 04/30/16 3:30pm APARNA AGUILAR MD Registered Practice [facility] 04/30/16 3:30pm APARNA AGUILAR MD Departed Emergency Room [facility] 04/29/16 10:47am 11:20am AMANDA FIELDS M.D. Registered Clinic [facility] 04/17/16 1:18pm APARNA AGUILAR MD Office Visit [facility] 04/17/16 11:15am APARNA AGUILAR MD Office Visit [facility] 03/20/16 11:30am APARNA AGUILAR MD Office Visit [facility] 03/06/16 11:30am APARNA AGUILAR MD Registered Clinic [facility] 02/20/16 11:41am APARNA AGUILAR MD Office Visit [facility] 02/20/16 11:15am APARNA AGUILAR MD Office Visit [facility] 02/09/16 10:30am HARPAL ESPOSITO PA-C Registered Practice [facility] 02/09/16 10:30am HARPAL ESPOSITO PA-C Registered Clinic [facility] 02/09/16 10:30am HARPAL ESPOSITO PA-C Registered Referred [facility] 02/03/16 12:04pm THI CHUNG M.D. Office Visit [facility] 02/03/16 11:00am THI CHUNG M.D. Registered Clinic [facility] 02/03/16 11:00am THI CHUNG M.D. Office Visit [facility] 01/31/16 9:45am APARNA AGUILAR MD Office Visit [facility] 01/13/16 11:15am APARNA AGUILAR MD Registered Referred [facility] 01/13/16 9:30am OTHER, DOCTOR Office Visit [facility] 12/21/15 11:15am APARNA AGUILAR MD Office Visit [facility] 12/15/15 10:15am APARNA AGUILAR MD Registered Clinic [facility] 12/15/15 10:02am APARNA AGUILAR MD Discharged Inpatient [facility] 12/09/15 10:28am 12/10/15 1:30pm STU TERRELL M.D. Office Visit [facility] 12/01/15 10:30am APARNA AGUILAR MD Registered Referred [facility] 11/17/15 10:41am APARNA AGUILAR MD Office Visit [facility] 11/17/15 9:30am APARNA AGUILAR MD Registered Clinic [facility] 11/14/15 11:45am APARNA AGUILAR MD Office Visit [facility] 11/14/15 11:00am APARNA AGUILAR MD Registered Referred [facility] 11/09/15 11:08am APARNA AGUILAR MD Office Visit [facility] 11/09/15 11:00am APARNA AGUILAR MD Departed Emergency Room [facility] 11/03/15 2:52pm 4:00pm AMANDA FIELDS M.D. Office Visit [facility] 10/28/15 11:30am APARNA AGUILAR MD Office Visit [facility] 10/13/15 11:15am APARNA AGUILAR MD Departed Emergency Room [facility] 09/30/15 4:24pm 6:42pm SANIA PACKER DO Office Visit [facility] 09/08/15 11:00am APARNA AGUILAR MD Registered Referred [facility] 09/08/15 11:00am APARNA AGUILAR MD [facility]16[facility] 12:00pm OTHER, DOCTOR Office Visit [facility] 08/16/15 11:15am APARNA AGUILAR MD Office Visit [facility] 07/25/15 2:00pm APARNA AGUILAR MD [facility] 07/06/15 1:46pm APARNA AGUILAR MD Office Visit [facility] 07/06/15 1:45pm APARNA AGUILAR MD [facility] 06/16/15 1:19pm 4:13pm SANIA VAUGHAN MD Office Visit [facility] 06/15/15 11:30am APARNA AGUILAR MD Office Visit [facility] 05/31/15 9:45am APARNA AGUILAR MD [facility] 05/23/15 8:13am 07/08 12:14pm SANIA VAUGHAN MD [facility] 05/10/15 11:13am APARNA AGUILAR MD Office Visit [facility] 05/10/15 10:45am APARNA AGUILAR MD Office Visit [facility] 04/26/15 10:15am APARNA AGUILAR MD Office Visit [facility] 04/20/15 1:15pm APARNA AGUILAR MD Office Visit [facility] 04/06/15 10:45am APARNA AGUILAR MD Office Visit [facility] 03/24/15 10:30am APARNA AGUILAR MD [facility]obs[facility] 03/16/15 3:50pm 5:40pm TATIANA HAWK M.D. Office Visit [facility] 03/15/15 10:45am APARNA AGUILAR MD Registered Referred [facility] 02/23/15 12:47pm APARNA AGUILAR MD Departed Clinic [place] [facility] 02/22/15 11:13am 02/22/15 12: 02pm GIOVANI MONTANEZ MD Registered Referred [facility] 02/22/15 10:57am APARNA AGUILAR MD Office Visit [facility] 02/22/15 10:45am APARNA AGUILAR MD Office Visit [facility] 02/09/15 10:15am APARNA AGUILAR MD Departed Clinic [facility] 01/18/15 11:27am 01/18/15 2: 10pm TATIANA HAWK M.D. Office Visit [facility] 01/18/15 11:00am APARNA AGUILAR MD [facility]obs[facility] 01/09/15 11:45am 5:55pm TATIANA HAWK M.D. Departed Emergency Room [facility] 12/30/14 11:10am 1:40pm CLARISA ALVES M.D. Office Visit [facility] 12/27/14 11:15am APARNA AGUILAR MD Office Visit [facility] 12/20/14 1:15pm APARNA AGUILAR MD Registered Referred [facility] 12/16/14 10:00am APARNA AGUILAR MD Office Visit [facility] 12/16/14 9:45am APARNA AGUILAR MD Office Visit [facility] 12/09/14 10:45am APARNA AGUILAR MD [facility] 11/30/14 9:15am 11:05am JAMES WHITE M.D. Office Visit [facility] 11/22/14 9:45am APARNA AGUILAR MD Office Visit [facility] 11/05/14 11:30am APARNA AGUILAR MD Departed Emergency Room [place] [facility]on [facility] 11/03/14 11:29am 2:37pm NICHOLAS LOZOYA M.D. Departed Clinic [facility] 10/26/14 10:38am 10/26/14 11: 49am GIOVANI MONTANEZ MD Office Visit [facility] 10/26/14 10:00am APARNA AGUILAR MD Departed Emergency Room [place] [facility] 10/21/14 10:14am 11:43am SANIA PACKER DO Office Visit [facility] 10/13/14 1:00pm APARNA AGUILAR MD Departed Clinic [facility] 10/12/14 10:45am 10/12/14 11: 11am GIOVANI MONTANEZ MD Departed Clinic [place] [facility] 09/28/14 10:32am 09/28/14 12: 19pm GIOVANI MONTANEZ MD Office Visit [facility] 09/28/14 10:15am APARNA AGUILAR MD Office Visit [facility] 09/15/14 11:15am APARNA AGUILAR MD Office Visit [facility] 09/01/14 10:45am APARNA AGUILAR MD Departed Clinic [facility] 08/31/14 10:54am 08/31/14 11: 20am GIOVANI MONTANEZ MD Office Visit [facility] 08/18/14 10:45am APARNA AGUILAR MD Office Visit [facility] 08/10/14 10:30am APARNA AGUILAR MD Discharged Inpatient [facility] 08/04/14 4:51pm 08/07/14 5 :05pm TATIANA HAWK M.D. Registered Referred [facility] 08/03/14 12:03pm APARNA AGUILAR MD Office Visit [facility] 08/03/14 11:15am APARNA AGUILAR MD Departed Clinic [facility] 08/03/14 10:26am 08/03/14 11: 34am GIOVANI MONTANEZ MD Office Visit [facility] 07/22/14 10:45am APARNA AGUILAR MD Discharged Inpatient [facility] 07/09/14 11:21am 07/12/14 2:45pm TATIANA HAWK M.D. Registered Referred Aida [facility] 07/08/14 10:00am APARNA AGUILAR MD Office Visit APARNA TURCIOSS 07/08/14 9:00am APARNA AGUILAR MD Departed Clinic [place] [facility] 07/06/14 10:21am 07/06/14 11: 19am GIOVANI MONTANEZ MD Office Visit APARNA TURCIOSS 07/02/14 10:30am APARNA AGUILAR MD Discharged Inpatient [place] [facility] 06/15/14 1:11am 06/16/14 11:50am T[facility]IANA [facility] 06/14/14 11:24am 06/14/14 1: 09pm APARNA AGUILAR MD Office Visit APARNA TURCIOSS 06/14/14 11:00am APARNA AGUILAR MD Office Visit APARNA TURCIOSS 06/02/14 11:15am APARNA AGUILAR MD Discharged Inpatient [place] [facility] 05/21/14 10:17pm 05/24/14 11:40am TATIANA HAWK M.D. Office Visit APARNA TURCIOSS 04/26/14 8:45am APARNA AGUILAR MD Registered Referred Aida [facility] 04/20/14 2:16pm APARNA AGUILAR MD Office Visit APARNA TURCIOSS 04/20/14 1:30pm APARNA AGUILAR MD Departed Clinic [place] [facility] 04/20/14 11:00am 04/20/14 11: 57am GIOVANI MONTANEZ MD Office Visit APARNA TURCIOSS 04/14/14 11:15am APARNA AGUILAR MD Office Visit APARNA TURCIOSS 04/01/14 10:30am APARNA AGUILAR MD Departed Clinic [place] [facility] 03/23/14 10:53am 03/23/14 12: 39pm GIOVANI MONTANEZ MD Office Visit APARNA AGUILAR 03/18/14 10:15am APARNA AGUILAR MD Office Visit APARNA TURCIOSS 03/11/14 11:15am APARNA AGUILAR MD Departed Clinic [place] [facility] 03/09/14 11:00am 03/09/14 11: 22am GIOVANI MONTANEZ MD Discharged Inpatient (obs) Aidaeleni [facility] 03/06/14 8:25pm 2:40pm TATIANA HAWK M.D. Office Visit APARNA AGUILAR 03/05/14 11:15am APARNA AGUILAR MD Office Visit APARNA AGUILAR 03/01/14 9:15am APARNA AGUILAR MD Registered Referred [facility] 02/26/14 10:23am APARNA AGUILAR MD Office Visit APARNA TURCIOSS 02/26/14 10:00am APARNA AGUILAR MD Departed Clinic [place] [facility] 02/23/14 11:35am 02/23/14 12: 01pm GIOVANI MONTANEZ MD Discharged Inpatient [place] [facility] 02/16/14 8:34pm 02/19/14 4 :30pm TATIANA HAWK M.D. Discharged Inpatient [place] [facility] 02/12/14 2:30am 02/15/14 11:00am APARNA AGUILAR MD Departed Emergency Room [facility] 02/08/14 10:15am 1:28pm CAROLINA DUMONT M.D. Office Visit APARNA AGUILAR 02/02/14 2:15pm APARNA AGUILAR [facility] [place] [facility] 1:31pm 02/02/14 2: 25pm GIOVANI MONTANEZ MD Office Visit APARNA AGUILAR 01/21/14 10:00am APARNA AGUILAR MD Departed Clinic [facility] 01/12/14 11:43am 01/12/14 12: 38pm GIOVANI MONTANEZ MD Office Visit APARNA R JEFF 01/07/14 10:00am APARNA AGUILAR MD Departed Clinic Aidaeleni [facility] 12/22/13 12:49pm 12/22/13 1: 23pm GIOVANI MONTANEZ MD Office Visit APARNA R JEFF 12/22/13 11:30am APARNA AGUILAR MD Office Visit APARNA R JEFF 12/10/13 11:00am APARNA AGUILAR MD [facility] 3:00pm APARNA AGUILAR MD Departed Clinic [facility] 12/01/13 2:25pm 12/01/13 2: 50pm GIOVANI MONTANEZ MD [facility] 2:30am 01/04 10:54am APARNA AGUILAR MD Office Visit APARNA R JEFF 11/26/13 10:45am APARNA AGUILAR MD Office Visit APARNA R JEFF 11/12/13 11:30am APARNA AGUILAR MD Registered Referred [facility] 11/05/13 9:28am APARNA AGUILAR MD Office Visit APARNA R JEFF 11/05/13 9:15am APARNA AGUILAR MD [facility]30[facility] 12:37pm 11/01/13 10:45am APARNA AGUILAR MD Office Visit APARNA R JEFF 10/27/13 10:45am APARNA AGUILAR MD Office Visit APARNA R JEFF 10/06/13 11:15am APARNA AGUILAR MD Office Visit APARNA R JEFF 09/24/13 10:00am APARNA AGUILAR MD Office Visit APARNA R JEFF 09/08/13 10:30am APARNA AGUILAR MD Office Visit APARNA R JEFF 08/25/13 10:00am APARNA AGUILAR MD Recent Diagnosis
--- OUTSIDE RECORDS SUMMARY | 2016-11-10 06:23 | XMS REPORT | Continuity of Care Document ---
Author Author [facility] Organization [facility] Address Unknown Phone Unavailable Care Team Providers Care Wrapper Layer Name Role Phone APARNA AGUILAR MD Unavailable [phone] Insurance Providers Payer Name Policy Number Subscriber Name Relationship [employer] [id number] Amee Guillen 01 Self / Same As Patient For Life [id number] Amee Guillen Self / Same As Patient Advance Directives Directive Response Recorded Date/Time Patient Resuscitation Status Full Code 08/04/14 3:11pm Advance Directives Yes 08/04/14 3:11pm Living Will Yes 08/04/14 3:11pm Health Care Power of Accounting Manager Controller Yes 08/04/14 3:11pm Chief Complaint and Reason for Visit Chief Complaint RIGHT ABDOMINAL CELLULITIS Reason for Visit Benign essential hypertension Diabetes mellitus Congestive heart failure (CHF) Chronic pain Hypotension Hx of diabetes mellitus Cellulitis Problems Medical Problems Problem Onset Date Status [...] diabetes mellitus Unknown Active Cellulitis Unknown Active Medications Medication Dose Route Sig [...] 05/27/13 08/25/13 Discontinued Fluticasone Propionate (Nasal) 2 [place] NA DAILY 1 Qty 05/27/13 Discontinued Levofloxacin 500 Mg PO DAILY 10 Qty 05/29/13 07/31/13 Discontinued Magnesium Oxide 400 Mg PO TWICE A DAY For NUTRIENT REPLACEMENT 180 Qty 06/30/13 04/07/14 Discontinued Fluconazole 100 Mg PO WEEKLY For PREVENT INFECTION 12 Qty 06/30/1303/07 Discontinued Tamsulosin Hcl 0.4 Mg PO DAILY For DYSUREA 90 Qty 06/30/13 Active Minocycline Hcl 100 Mg PO DAILY For ANTIBIOTIC 90 Qty 07/14/13 Discontinued Tramadol Hcl 1-2 Tab PO Every 6 hours as needed For BREAKTHROUGH PAIN 100 Qty 07/14/13 04/01/14 Discontinued Insulin Glargine 20 Unit SC BEDTIME For DIABETES 3 Qty 08/05/13 Discontinued Sertraline Hcl 100 Mg PO DAILY For ANTIDEPRESSANT 90 Qty 08/05/13 Active Lorazepam 0.5 Mg PO Every 4 hours as needed 30 Qty 08/25/13 10/06/13 Discontinued Colchicine 0.6 Mg PO DAILY For PAIN 90 Qty 10/06/13 Active Lorazepam 0.5 Mg PO Every 4 hours as needed For ANXIETY 60 Qty 12/22/13 Discontinued Carvedilol 3.125 Mg PO TWICE A DAY For HEART MED 180 Qty 10/27/13 Active Levothyroxine Sodium 1 Tab PO DAILY For THYROID 90 Qty 10/27/13 Active Aspirin 81 Mg PO DAILY For BLOOD [...] Qty 02/08/14 Active Fluticasone Propionate (Nasal) 1-2 [place] NA DAILY For STUFFY NOSE 1 Qty [...] needed For BREAKTHROUGH PAIN 100 Qty 06/02/14 Active Spironolactone 100 Mg PO TWICE A DAY 60 Qty 06/02/14 Active Fluconazole 100 Mg PO WEEKLY For PREVENT INFECTION 12 Qty 07/02/14 Active Lorazepam 0.5 Mg PO Every 4 hours as needed For ANXIETY 60 Qty Active Oxycodone HCl 40 Mg PO THREE TIMES A DAY PRN FOR PAIN IF NEEDED 07/09 Active Ibuprofen 800 Mg PO THREE TIMES A DAY PRN MUSCLE PAIN & INFLAMMATION 07/09/14 Active Insulin Glargine 20 Unit SC BEDTIME For DIABETES 5 Qty 07/22/14 Active Potassium Chloride 20 Meq PO TWICE A DAY 180 Qty 08/03/14 Active Piperacillin Sodium-Tazobactam 3.375 Grams IV Q6HRS For Cellulitis 14 Qty Start on 08/07/14 at 1530 and stop on 08/10/14 at 2130 08/07/14 Active Sodium Chloride 0.9 % INJ q6HRS For Flush 15 Qty Dispense amount sufficient to end on 08/10/14 08/07/14 Active Social History Social History Problem Response Recorded Date/Time Smoking Status Former smoker 08/07/2014 1:17pm Query Response Start Date Stop Date Smoking Status Former smoker Hospital Discharge Instructions Discharge Instructions Provider Instructions Dismiss Date: Aug 07, 2014 Dismiss: Home with Home Health Diet: Return to Previous Activity: As Tolerated Physician Follow-up Appt #1: Dr Aguilar [phone] F/U Appt: One Week Discharge Instructions 1. Follow up with Dr Aguilar within 1 week 2. Return to the hospital for evaluation if any concerns Signs/Symptoms -notify Doctor: Fever above 101 deg, Redness, Uncontrolled Pain Plan of Care Discharge Date 08/07/14 5:05pm Disposition 06 HOME HEALTH SERVICE Prescriptions See Medications Section Functional Status Query Response Date Recorded Overall Activities Daily Living Ability/Staff Support Independ/No setup help August 04, 2014 3:11pm Toileting Ability/Staff Support Extens/One person assist August 07, 2014 8:26am Oral Care Ability/Staff Support Limited/One person assist August 07, 2014 8:26am Upper Body Dressing Ability/Staff Support Extens/One person assist August 07, 2014 8:26am Lower Body Dressing Ability/Staff Support Activity did not occur August 07, 2014 8:26am Cognitive Skills Independent August 07, 2014 8:15am Making self understood Understood August 07, 2014 8:15am Allergies, Adverse Reactions, Alerts Allergen Type Severity Reaction Status Last Updated Allopurinol Allergy Unknown Active 08/04/14 Codeine Allergy Unknown Active 08/04/14 Metoclopramide Allergy Unknown Active 08/04/14 Venlafaxine Allergy Unknown Active 08/04/14 Celecoxib Allergy Unknown BLISTERS Active 08/04/14 Cephalosporins Allergy Unknown Active 08/04/14 Immunizations Name Given Type Hx Hepatitis A Vaccination No Historical Pneumonia Vaccine Received Yes Historical Had a Tetanus Toxoid Vaccination less than 10yrs ago Yes Historical Td (adult), adsorbed 02/17/14 Administered Td (adult), adsorbed 02/17/14 Administered Influenza, high dose seasonal 03/07/14 Administered Influenza, high dose seasonal 03/07/14 Administered Vital Signs Acute Vital Signs Vital Response Date/Time Blood Pressure 103/67 mm Hg Blood Pressure Mean 74 mm Hg Blood Pressure Mean 79 mm Hg Temperature (Fahrenheit) 97.6 degrees F (96.0 - 99.9) Temperature (Calculated Celsius) 36.71346 degrees C Temperature (Calculated Celsius) 36.22224 degrees C (36.4 - 37.5) Temperature (Fahrenheit) 98.4 degrees F (96.0 - 99.9) Temperature Source Oral Temperature Source Oral Temp 98.4 degrees F (96.0 - 99.9) Temperature (Calculated Celsius) 36.04213 degrees C Pulse Pulse Rate (adult) 72 bpm (60 - 100) Pulse Rate (adult) 115 bpm (60 - 100) Pulse Rate: ED 85 bpm Respiratory Rate 20 breaths per minute (10 - 20) Respiratory Rate 14 bpm (10 - 20) Height (Feet) 5 ft Height (Inches) 6.0 in. Weight (Pounds) 256.7 lbs Height 5 ft 6 in Weight 256 lb Body Mass Index 41.4 kg/m^2 Ambulatory Vital Signs Vital Response Date/Time Height 5 ft 5 in 08/03/2014 11:37am Weight 270 lbs 08/03/2014 11:37am Blood Pressure 106/68 mm Hg 08/03/2014 11:37am Body Surface Area 2.44 m2 08/03/2014 11:37am Body Mass Index 44.9 kg/m2 08/03/2014 11:37am Results Test Source Date Result Interp. Ref. Range Comments Activated Partial Thromboplast Time September 23, 2011 6:25am 26.6 SECONDS N 23.0-32.0 COMMENT: 06 Alanine Aminotransferase (ALT/SGPT) July 09, 2014 6:00am 17 U/L N 5- 40 Albumin July 09, 2014 6:00am 3.4 gm/dL N 3.2-5.0 Albumin/Globulin Ratio July 09, 2014 6:00am 1.0 L 1.4-2.4 Alkaline Phosphatase July 09, 2014 6:00am 74 U/L N 35-125 Ammonia August 28, 2010 8:20pm 28 mcg/dL N 19-60 COMMENTS?NEW ADMIT SERUM AMMONIA,SERUM MAG Anion Gap August 07, 2014 5:24am 12.8 N 6-13 Anisocytosis December 08, 2012 8:20am 2+ COMMENT: 04 Arterial Blood HCO3 July 09, 2014 5:58am 33.7 mEq/L H 21-27 PT. ON 6LNC Arterial Blood Total CO2 July 09, 2014 5:58am 35.3 mM/L H 21-27 Arterial Blood pH July 09, 2014 5:58am 7.42 N 7.35-7.45 Aspartate Amino Transf (AST/SGOT) July 09, 2014 6:00am 23 U/L N 5-40 Atypical Lymphocytes June 25, 2012 10:20pm 1.0 % N 0-2 COMMENT: 05 B-Type Natriuretic Peptide August 03, 2014 12:08pm 204 pg/mL H 15-100 BUN/Creatinine Ratio August 07, 2014 5:24am 19.0 Band Neutrophils December 08, 2012 8:20am 2.0 % N 0-7 COMMENT: 04 Basophils # (Auto) August 07, 2014 5:24am 0.1 K/uL N 0-0.2 Basophils (%) (Auto) August 07, 2014 5:24am 1.1 % H 0-1 Basophils (Manual) February 14, 2014 6:05am [...] >0.40 ng/mL=SUGGESTS AMI Blood Gas Base Excess July 09, 2014 5:58am 7.8 mEq/L Blood Gas PCO2 July 09, 2014 5:58am 52 mmHg H 35-45 Blood Gas PO2 July 09, 2014 5:58am 83 mmHg L 89-100 Blood Urea Nitrogen August 07, 2014 5:24am 22 mg/dL N 8-25 C-Reactive Protein June 25, 2012 10:20pm 8.0 mg/L <6.0 COMMENT: 05 Calcium Level August 07, 2014 5:24am 9.3 mg/dL N 8.2-10.6 Carbon Dioxide Level August 07, 2014 5:24am 31 mEq/L N 22-34 Chloride Level August 07, 2014 5:24am 98 mEq/L N 98-116 Cholesterol Level February 20, 2002 8:12am 130 mg/dL N 120-200 Creatine Kinase MB May 21, 2014 7:40pm 4.7 ng/mL N 0.0-6.0 Creatinine August 07, 2014 5:24am 1.16 mg/dL N 0.9-1.6 Creatinine Clearance December 21, [...] 9:42am 2.3 ng/ml PH Eosinophils # (Auto) August 07, 2014 5:24am 0.6 K/uL N 0-0.8 Eosinophils (%) (Auto) August 07, 2014 5:24am 11.7 % H 0-7.0 Eosinophils (Manual) February 14, 2014 6:05am 12.0 % H 0-7.0 Erythrocyte Sedimentation Rate May 29, 2010 1:10pm 7 mm/hr N 0-20 Folate August 06, 2000 6:50am See separate report ng/ml Free Thyroxine Index August 06, 2000 6:50am 5.10 N 3.6-14.0 Globulin July 09, 2014 6:00am 3.3 gm/dL H 2.0-3.0 Glomerular Filtration Rate Calc August 07, 2014 5:24am > 60.00 mL/min MULTIPLY RESULT BY 1.210 IF THE PATIENT IS -AMERICANUnits are mL/ min/1.73 m2 > 60 Normal kidney function 30-59 Moderately decreased kidney function 15-29 Severely decreased kidney function <15 End-stage kidney failure Glucose Level July 05, 1999 4:30pm 163 mg/dL H 65-115 HDL Cholesterol February 20, 2002 8:12am 48 mg/dL N 35-80 HIV-1 Antibody December 11, 2000 10:45am Negative NEGATIVE COMMENTS? EMPLOYEE NEEDLE STICK DURING SURGICAL PROCEDURE - PT IN RR NOW Hematocrit August 07, 2014 5:24am 41.8 % N 40.0-54.0 Hemoglobin August 07, 2014 5:24am 13.4 g/dL L 14.0-18.0 Hepatitis B Surface Antibody [...] 0-0.4 COMMENT: 04 Immature Granulocyte # (Auto) August 07, 2014 5:24am 0.02 K/uL N 0- 0.40 Immature Granulocyte % (Auto) August 07, 2014 5:24am 0.4 % N 0-0.5 InFluenza Virus Type A (H1N1) (PCR) July 09, 2014 6:15am Not detected NEGATIVE Influenza Virus Type A (PCR) July 09, 2014 6:15am Negative NEGATIVE Influenza Virus Type B (PCR) July 09, 2014 6:15am Negative NEGATIVE LDL Cholesterol February 20, 2002 8:12am 59 mg/dL N 25-160 Lab Scanned Report April 29, 2014 8:54am Lab Scanned Report [id number] Lactate Dehydrogenase September 28, 1998 4:10pm 152 U/L N COMMENTS? CARDIAC ENZYMES NOW Lactic Acid Level May 21, 2014 7:40pm 1.2 mmol/L N 0.5-2.2 Lipase May 21, 2014 7:40pm 17 U/L N 8-57 Lymphocytes # (Auto) August 07, 2014 5:24am 1.6 K/uL N 0.9-5.2 Lymphocytes (%) (Auto) August 07, 2014 5:24am 28.4 % N 16.0-44.0 Lymphocytes (Manual) February 14, 2014 6:05am 26.0 % N 21.0-51.0 Macrocytosis December 08, 2012 8:20am 2+ COMMENT: 04 Magnesium Level August 27, 2011 10:20am 1.7 mg/dL N 1.3-2.5 Mean Corpuscular Hemoglobin August 07, 2014 5:24am 30.2 pg N 26.0- 33.0 Mean Corpuscular Hemoglobin Concent August 07, 2014 5:24am 32.1 g/dL N 31.0-36.0 Mean Corpuscular Volume August 07, 2014 5:24am 94.1 fL H 80.0-94.0 Mean Platelet Volume August 07, 2014 5:24am 10.8 fL N 7.0-11.0 Metamyelocytes January 22, 2008 7:03pm 2.0 % Microcytosis November 03, 2006 8:55am 1+ COMMENTS?ROOM 2 Monocytes # (Auto) August 07, 2014 5:24am 1.1 K/uL H 0.16-1.0 Monocytes (%) (Auto) August 07, 2014 5:24am 20.0 % H 2.0-9.0 Monocytes (Manual) February 14, 2014 6:05am 16.0 % H 2.0-9.0 Myelocytes January 22, 2008 7:03pm 1.0 % Neutrophils February 14, 2014 6:05am 46.0 % N 42.0-75.0 Neutrophils # (Auto) August 07, 2014 5:24am 2.1 K/uL N 1.9-8.0 Neutrophils (%) (Auto) August 07, 2014 5:24am 38.4 % L 42.0-75.0 Nucleated Red Blood Cells # August 07, 2014 5:24am 0.00 K/uL N 0.0- 0.012 Nucleated Red Blood Cells % August 07, 2014 5:24am 0.0 /100WBC N 0-0 Ovalocytes January 22, 2006 9:55pm 1+ COMMENTS?ROOM 5 Platelet Count August 07, 2014 5:24am 57 K/uL DL 130-400 Platelet Estimate August 06, 2014 5:58am Decreased NORMAL NO EVIDENCE OF PLATELET CLUMPING ON SLIDE REVIEW Poikilocytosis January 22, 2006 9:55pm 1+ COMMENTS?ROOM 5 Polychromasia August 10, 2006 10:30pm 1+ COMMENTS?ROOM 2 Potassium Level August 07, 2014 5:24am 3.8 mEq/L N 3.5-5.1 Prealbumin May 30, 2010 [...] 11.5 SECONDS N 9.0-12.0 RDW Standard Deviation August 07, 2014 5:24am 47.5 fL H 35.1-43.9 Random Glucose August 07, 2014 5:24am 85 mg/dL DN 65-115 Rapid Troponin I August 28, 2010 3:40pm 0.00 ng/mL N 0.00-0.03 < 0.03 ng/mL=NORMAL0.04 - 0.50 ng/mL=CARDIAC CONDITION >0.50 ng/mL=SUGGESTS AMI Red Blood Cell Morphology August 27, 2002 7:35pm Normal Red Blood Count August 07, 2014 5:24am 4.44 M/uL L 4.60-5.40 Red Cell Distribution Width August 07, 2014 5:24am 13.7 % N 11.5-14.5 Sodium Level August 07, 2014 5:24am 138 mEq/L N 133-145 Stomatocytes December 08, 2012 [...] Synovial Fluid WBC September 27, 1998 12:00am 90250.0 /uL PH Target Cells August 05, 2001 7:20am 2+ COMMENTS? SEND TO [facility] ON ARRIVAL Thyroid Stimulating Hormone (TSH) May 29, 2010 1:10pm 10.62 uIU/ml H 0.34-5.60 Thyroxine (T4) August 06, 2000 6:50am 5.8 ug/dl N 4.7-11.5 Total Bilirubin July 09, 2014 6:00am 0.8 mg/dL N 0.1-1.3 Total Creatine Kinase May 21, 2014 7:40pm 52 U/L N 10-180 Total Protein July 09, 2014 6:00am 6.7 gm/dL N 6.0-8.4 Toxic Granulation May 28, 2001 3:18pm 1+ Triglycerides Level February 20, 2002 8:12am 113 mg/dL N 45-150 Triiodothyronine (T3) Uptake August 06, 2000 6:50am 27.8 % N 24.0- 38.9 Troponin I August 04, 2014 12:42pm 0.00 ng/mL N 0.0-0.02 Uric Acid August 07, 2005 10:33am 5.7 mg/dL N 2.5-7.0 COMMENTS? ADD TO THIS AM'S LABS Urine Amorphous Sediment December 08, 2011 11:25am Trace COMMENT: 05SOURCE: URINE, RANDOM Urine Appearance July 09, 2014 6:35am Clear SOURCE: URINE, CLEAN CATCH Urine Bacteria June 15, 2014 12:35am None /hpf NONE SOURCE: URINE , CLEAN CATCH Urine Bilirubin July 09, 2014 6:35am Negative NEGATIVE SOURCE: URINE, CLEAN CATCH Urine Casts June 15, 2014 12:35am 3-5 hyaline /lpf NONE SOURCE: URINE, CLEAN CATCH Urine Color July 09, 2014 6:35am Yellow SOURCE: URINE, CLEAN CATCH Urine Creatinine December 21, 1998 3:22pm 1.8 mg/dL Urine Crystals December 08, 2011 11:25am None /hpf NONE COMMENT: 05SOURCE : URINE, RANDOM Urine Epithelial Cells June 15, 2014 12:35am Occasional /lpf SOURCE: URINE, CLEAN CATCH Urine Glucose (UA) July 09, 2014 6:35am Negative NEGATIVE SOURCE: URINE, CLEAN CATCH Urine Ketones July 09, 2014 6:35am Negative NEGATIVE SOURCE: URINE , CLEAN CATCH Urine Leukocyte Esterase July 09, 2014 6:35am Negative NEGATIVE SOURCE: URINE, CLEAN CATCH Urine Mucus December 08, 2011 11:25am None /lpf NONE COMMENT: 05SOURCE: URINE, RANDOM Urine Nitrate July 09, 2014 6:35am Negative NEGATIVE SOURCE: URINE , CLEAN CATCH Urine Occult Blood July 09, 2014 6:35am Negative NEGATIVE SOURCE: URINE, CLEAN CATCH Urine Other December 08, 2011 11:25am N COMMENT: 05SOURCE: URINE, RANDOM Urine Protein July 09, 2014 6:35am Negative NEGATIVE SOURCE: URINE , CLEAN CATCH Urine RBC June 15, 2014 12:35am None /hpf NONE SOURCE: URINE, CLEAN CATCH Urine Specific [place] July 09, 2014 6:35am 1.015 1.005-1.030 SOURCE: URINE, CLEAN CATCH Urine Total Protein 24 Hour March 12, 2001 11:36am 98.4 mg/24hrs N 30-150 Urine Total Volume December 10, 2001 11:20am 4475 mL Urine Uric Acid 24 Hour December 21, 1998 3:22pm 1118.0 MG/24 HR H 250-750 Urine Urobilinogen July 09, 2014 6:35am 0.2 E.U./dL 0.2-1.0 SOURCE : URINE, CLEAN CATCH Urine WBC June 15, 2014 12:35am None /hpf NONE SOURCE: URINE, CLEAN CATCH Urine WBC Clumps December 08, 2011 11:25am 0-1 /hpf NONE COMMENT: 05SOURCE: URINE, RANDOM Urine pH July 09, 2014 6:35am 7.5 4.5-8.0 SOURCE: URINE, CLEAN CATCH VLDL Cholesterol [...] See separate report pg/ml White Blood Count August 07, 2014 5:24am 5.5 K/uL N 5.0-10.0 Whole Blood Anion Gap [...] procedures. Encounters Encounter Location Date/Time Discharged Inpatient [facility] 08/04/14 4:51pm Office Visit APARNA Vitaliy AGUILAR 08/03/14 11:15am Registered Clinic [facility] 08/03/14 10:26am Office Visit APARNA AGUILAR 07/22/14 10:45am Discharged Inpatient [facility] 07/09/14 11:21am Office Visit APARNA Vitaliy AGUILAR 07/08/14 9:00am Registered Clinic [facility] 07/06/14 10:21am Office Visit APARNA Vitaliy JEFF 07/02/14 10:30am Discharged Inpatient [facility] 06/15/14 1:11am Registered Clinic [facility] 06/14/14 11:24am Office Visit APARNA R JEFF 06/14/14 11:00am Office Visit APARNA R JEFF 06/02/14 11:15am Discharged Inpatient [facility] 05/21/14 10:17pm Office Visit APARNA R JEFF 04/26/14 8:45am Office Visit APARNA R JEFF 04/20/14 1:30pm Registered Clinic [facility] 04/20/14 11:00am Office Visit APARNA R JEFF 04/14/14 11:15am Office Visit APARNA R JEFF 04/01/14 10:30am Registered Clinic [facility] 03/23/14 10:53am Office Visit APARNA R JEFF 03/18/14 10:15am Office Visit APARNA R JEFF 03/11/14 11:15am Registered Clinic [facility] 03/09/14 11:00am Discharged Inpatient [facility] 03/06/14 8:25pm Office Visit APARNA R JEFF 03/05/14 11:15am Office Visit APARNA R JEFF 03/01/14 9:15am Office Visit APARNA R JEFF 02/26/14 10:00am Registered Clinic [facility] 02/23/14 11:35am Discharged Inpatient [facility] 02/16/14 8:34pm Discharged Inpatient [facility] 02/12/14 2:30am Departed Emergency Room [facility] 02/08/14 10:15am Office Visit APARNA R JEFF 02/02/14 2:15pm Registered Clinic [facility] 02/02/14 1:31pm Office Visit APARNA R JEFF 01/21/14 10:00am Registered Clinic [facility] 01/12/14 11:43am Office Visit APARNA R JEFF 01/07/14 10:00am Registered Clinic [facility] 12/22/13 12:49pm Office Visit APARNA TURCIOSS 12/22/13 11:30am Office Visit APARNA TURCIOSS 12/10/13 11:00am Registered Recurring [facility] 12/01/13 3:00pm Registered Clinic [facility] 12/01/13 2:25pm Discharged Inpatient [facility] 11/27/13 2:30am Office Visit APARNA TURCIOSS 11/26/13 10:45am Office Visit APARNA TURCIOSS 11/12/13 11:30am Office Visit APARNA TURCIOSS 11/05/13 9:15am Discharged Inpatient [facility] 10/30/13 12:37pm Office Visit APARNA DELUCAHNS 10/27/13 10:45am Office Visit APARNA DELUCAHNS 10/06/13 11:15am Office Visit APARNA DELUCAHNS 09/24/13 10:00am Office Visit APARNA DELUCAHNS 09/08/13 10:30am Office Visit APARNA R JEFF 08/25/13 10:00am Office Visit APARNA DELUCAHNS 08/18/13 11:00am Registered Clinic [facility] 08/11/13 2:45pm Office Visit APARNA TURCIOSS 08/11/13 2:15pm Recent Diagnosis Benign essential hypertension Diabetes mellitus Congestive heart failure (CHF) Chronic pain Hypotension Hx of diabetes mellitus Cellulitis
--- OUTSIDE RECORDS SUMMARY | 2016-11-10 06:24 | XMS REPORT | Continuity of Care Document ---
Author Author Aida Benson [facility] Aida Benson [facility] Address Unknown Phone Unavailable Care Team Providers Care Limited Radiology Technician Name Role Phone APARNA AGUILAR MD Unavailable [phone] Insurance Providers Guarantor mAee Anderson Address [address] [place] [address] Payer For Life Policy Number [id number] Subscriber's Name Amee Anderson Relationship 01 Self / Same As Patient Group Number [id number] Group Name [employer] Effective Date 13 Payer s Medicare Policy Number [id number] Subscriber's Name Amee Anderson Relationship 01 Self / Same As Patient Effective Date 09 Advance Directives Directive Response Recorded Date/Time Patient Resuscitation Status Full Code 12/08/15 3:18pm Advance Directives Yes 12/08/15 3:18pm Living Will Yes 12/08/15 3:18pm Health Care Power of Resolution Agent Yes 12/08/15 3:18pm Chief Complaint and Reason for Visit Chief Complaint VOMITING Reason for Visit Hypoxia Problems Active Problems Medical Problem Onset Date Status Abdominal wall cellulitis Unknown Acute Actinic keratosis Unknown Acute Acute bronchitis Unknown Acute Acute exacerbation of CHF (congestive heart failure) Unknown Acute sinusitis 02/26/2013 Chronic Altered mental status [...] Chills Unknown Acute Chronic atrial fibrillation Unknown Acute Chronic congestive heart failure 12/18/2010 Chronic Chronic diastolic heart failure Unknown Chronic Chronic low back pain 12/18/2010 Chronic Chronic pain Unknown Acute Closed fracture of multiple ribs 06/19/2011 Chronic [...] 04/22/2013 Chronic Fracture of clavicle 06/04/2011 Chronic Generalized weakness Unknown Acute HCAP (healthcare-associated pneumonia) Unknown Acute History of [...] keratosis Unknown Acute Inguinal pain Unknown Acute Nausea and vomiting 06/26/2012 Acute Opiate overdose Unknown Acute Osteoporosis 2013 Chronic Pneumonia Unknown Acute Pneumonia Unknown Acute Pneumonia Unknown Acute Respiratory acidosis Unknown Acute SYSTEMIC INFLAMMATORY RESPONSE SYNDROME (SIRS) NOS 12/08/2012 Acute Sepsis Unknown Acute Sprain of ankle 01/04/2012 Chronic Sweating fever 01/27/2012 Acute Tremors of nervous system Unknown Acute Weakness Unknown Acute Weakness Unknown 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 Unknown Acute Past Problems Medical Problem Onset Date Nausea & vomiting Unknown Medications Current Home Medications Medication Dose [...] Tablet 06/29/15 Fluticasone Propionate (Flonase 0.05% Nasal [place]) 16 Gm Inha 1-2 [place] Nasal Daily 1 Btl 05/24/15 Furosemide (Lasix [...] Hours As Needed for Anxiety 60 Tablet 06/29/15 Magnesium Oxide (Mag-Ox 400) 400 Mg Tab 400 Mg Oral Twice A Day for Nutrient Replacement 180 Tablet 05/05/15 Minocycline Hcl 100 Mg Cap 100 Mg [...] Twice A Day for Indigestion 180 Tablet 04/21/15 Sertraline Hcl (Zoloft) 100 Mg Tab 100 [...] Propionate (Nasal) (Flonase) 0.05 % Spr, 1-2 [place] Nasal Daily for Stuffy Nose 02/12/14 Discontinued Fluticasone Propionate (Nasal) (Flonase) 0.05 % Spr, 2 [place] Nasal Daily 10/04 Discontinued Furosemide (Lasix 80 [...] Applicable Not Applicable Smoking Status Former smoker 12/08/2015 3:18pm Not Applicable Not Applicable Query Response Start Date Stop Date Smoking Status Former smoker Hospital Discharge Instructions Medication Information Medication information Medications taken today: TAKEN AT 1:43AM: TYLENOL 650MG ATIVAN 0.5MG TAKEN AT 5:22AM: OXYCONTIN 40MG ADVIL 800MG SYNTHROID 75MCG TAKEN AT 8:48AM: FLOMAX 0.4MG K-DUR 20MEQ ALDACTONE 100MG MINOCIN 100MG MAG OX 400MG GABAPENTIN 600MG LASIX 120MG PEPCID 20MG COREG 3.125MG ASPIRIN 81MG ZOLOFT 100MG FLONASE NASAL SPRAY TAKEN AT 9:13AM: COMBIVENT INHALER Discharge Instructions Provider Instructions Dismiss: Home with Home Health Diet: heart healthy, low sodium Activity: As Tolerated Physician Follow-up Appt #1: Dr Aguilar [phone] F/U Appt: One Week Physician Follow-up Appt #2: eye doctor as able Discharge Instructions Continue all medications as prescribed by Dr. Aguilar, I haven't made any changes. Your diuretic medicine (furosemide) is critically important. Signs/Symptoms -notify Doctor: Fever above 101 deg, Chest Pain, Nausea/Vomiting, Shortness of Breath, Gain > 3lbs in one day, Gain > 5lbs in one week, No appetite, Wheezing, Reaction to Medication Nursing Instructions Physician Follow-up Appointment: Dr Aguilar [phone] Signs and Symptoms to notify your Doctor about:: Fever above 101 deg, Chest Pain , Shortness of Breath Diet: As Tolerated Activity: As Tolerated Other Dismissal Instructions: DISMISS HOME WITH [facility] FOLLOW UP WITH DR AGUILAR IN ONE WEEK Heart Failure Discharge Instructions: Read food labels, Avoid high sodium foods, Do not add salt to food, Bring weight record to Dr, Record weight daily, Weigh same time each day, Weigh with empty bladder, Report weight gains 2-3lb, No Smoking, Call Dr for appointment Pain Management Brochure given: Yes Plan(s) based on screenings Eye exam for Diabetic pt Follow-up plan: You are encouraged to obtain a Dilated Retinal eye exam Plan of Care Discharge Date 12/10/15 1:30pm Disposition 06 HOME HEALTH SERVICE Prescriptions See Medication Section Care Plan and Goals See Discharge Instructions Section Functional Status Query Response Date Recorded FUNCTIONAL ACTIVITIES: Supine to Sit Ability 5/7 Supervision/Set-up December 10, 2015 9:15am Overall Activities Daily Living Ability/Staff Support Limited/One person assist December 08, 2015 3:18pm Toileting Ability/Staff Support Total/One person assist December 10, 2015 6:50am Oral Care Ability/Staff Support Limited/One person assist December 10, 2015 6:50am Upper Body Dressing Ability/Staff Support Limited/One person assist December 10, 2015 6:50am Lower Body Dressing Ability/Staff Support Activity did not occur December 10, 2015 6:50am Bed Mobility Ability (general) 2/7 Maximal Assistance December 09, 2015 3:18pm Bed Mobility Rolling Ability 3/7 Moderate Assistance December 09, 2015 3:18pm Bed Mobility Scooting Up & Down Ablility 2/7 Maximal Assistance December 09, 2015 3:18pm Memory Description Short term intact retirement intact December 10, 2015 8:55am Cognitive Skills Independent December 10, 2015 8:55am Making self understood Understood December 10, 2015 8:55am Allergies, Adverse Reactions, Alerts Allergen Type Severity Reaction Status Last Updated Allopurinol Allergy Unknown Active 06/16/15 Codeine Adverse Reaction Unknown Active 06/16/15 Metoclopramide Allergy Unknown Active 06/16/15 Venlafaxine Allergy Unknown Active 06/16/15 Celecoxib Adverse Reaction Unknown Active 06/16/15 Cephalosporins Allergy Unknown Active 06/16/15 Immunizations Immunization Event Date Type Not Given Reason Dose Number Lot Number 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 Apprentice Influenza Vaccine, Inactivated 03/24/12 Administered 1 [id number] Sanofi Influenza Vaccine, Inactivated 04/09/13 Administered 2 [id number] SANOFI Pneumococcal Polysaccharide Vaccine 23 07/30/05 Administered 1 Influenza, high dose, seasonal 03/17/15 Historical 1 Query Response on File Recorded Date/Time Hx Hepatitis A Vaccination No 12/08/15 3:18pm Pneumonia Vaccine Received Yes 12/08/15 3:18pm Had a Tetanus Toxoid Vaccination less than 10yrs ago Yes 12/08/15 3:18pm Vital Signs Acute Vital Signs Vital Response Date/Time Blood Pressure 137/86 mm Hg 12/10/2015 12:12pm Blood Pressure Mean 74 mm Hg 11/27/2013 1:24pm Blood Pressure Mean 103 mm Hg 12/10/2015 12:12pm Temperature (Fahrenheit) 98.5 degrees F (96.0 - 99.9) 12/10/2015 12:12pm Temperature (Calculated Celsius) 36.37013 degrees C 12/10/2015 12:12pm Temperature (Calculated Celsius) 36.49783 degrees C (36.4 - 37.5) 11/27/2013 1:24pm Temperature (Fahrenheit) 98.4 degrees F (96.0 - 99.9) 11/27/2013 1:24pm Temperature Source Oral 12/10/2015 12:12pm Temperature Source Oral 12/08/2015 11:59am Temp 98.4 degrees F (96.0 - 99.9) 11/27/2013 1:22pm Temperature (Calculated Celsius) 36.67213 degrees C 11/27/2013 1:22pm Pulse Pulse Rate (adult) 62 bpm (60 - 100) 12/10/2015 12:12pm Pulse Rate (adult) 115 bpm (60 - 100) 11/27/2013 1:24pm Pulse Rate: ED 68 bpm 12/08/2015 3:18pm Respiratory Rate 16 breaths per minute (10 - 20) 12/10/2015 12:12pm Respiratory Rate 14 bpm (10 - 20) 11/27/2013 1:24pm Height (Feet) 5 ft 12/08/2015 3:18pm Height (Inches) 6.0 in. 12/08/2015 3:18pm Weight (Pounds) 256.8 lbs 12/10/2015 4:15am Height 5 ft 6 in 12/08/2015 11:59am Weight 256.80 lb 12/10/2015 4:15am Body Mass Index 41.4 kg/m^2 12/10/2015 4:15am Ambulatory Vital Signs Vital Response Date/Time Height 5 ft 5 in 12/01/2015 10:45am Weight 247 lbs 12/01/2015 10:45am Blood Pressure 104/60 mm Hg 12/01/2015 10:45am Body Surface Area 2.32 m2 12/01/2015 10:45am Body Mass Index 41.1 kg/m2 12/01/2015 10:45am Pulse Oximetry Pulse Oximetry 12/01/2015 10:45am Results Laboratory Results Test Name Result Units [...] 02/22/2015 11:00am 2014 11:56am Results <230 ng/mL yeild a negative predictability for DVT or PE Urine RBC NONE /hpf NONE 05/23/2015 6:27am 05/23/2015 9:47am Urine WBC 0-1 /hpf NONE 05/23/2015 6:27am 05/23/2015 9:47am Urine Epithelial Cells RARE /lpf 05/23/2015 6:27am 05/23/2015 9:47am Urine Bacteria NONE /hpf NONE 05/23/2015 6:27am 05/23/2015 9:47am Urine Casts 5-10 HYALINE /lpf NONE 05/23/2015 6:27am 05/23/2015 9:47am Bedside Glucose 123 mg/dL H 70-120 05/23/2015 5:29pm 07/02/2015 3:38pm C-Reactive Protein 10.7 mg/L H <6.0 05/23/2015 5:50am 05/23/2015 6:27am Hemoglobin A1c 6.7 % H 4.8-5.6 07/06/2015 1:40pm 07/07/2015 12:16pm Performed at: [address] [id number] Executive Cyber Leader: ROJAS Whitaker MD, Phone: [phone] Magnesium Level 2.2 mg/dL 1.3-2.5 09/30/2015 5:23pm 09/30/2015 5:52pm Thyroid Stimulating Hormone (TSH) 11.63 uIU/ml H 0.34-5.60 09/30/2015 5: 23pm 09/30/2015 6:50pm Magnesium Level 1.8 mg/dL 1.6-2.3 11/14/2015 11:18am 11/15/2015 8:08am Performed at: [address] [id number], [place], [place] [id number] Executive Cyber Leader: ROJAS Whitaker MD, Phone: [phone] White Blood Count 4.2 x10E3/uL 3.4-10.8 11/14/2015 11:18am 11/15/2015 6 :11am Red Blood Count 3.89 x10E6/uL L 4.14-5.80 11/14/2015 11:18am 11/15/2015 6:11am Hemoglobin 11.4 g/dL L 12.6-17.7 11/14/2015 11:1811/15/2015 6:11am Hematocrit 36.6 % L 37.5-51.0 11/14/2015 11:18am 11/15/2015 6:11am Mean Corpuscular Volume 94 fL 79-97 11/14/2015 11:18am 11/15/2015 6: 11am Mean Corpuscular Hemoglobin 29.3 pg 26.6-33.0 11/14/2015 11:18am 2015 6:11am Mean Corpuscular Hemoglobin Concent 31.1 g/dL L 31.5-35.7 11/14/2015 11: 18am 11/15/2015 6:11am Red Cell Distribution Width 13.7 % 12.3-15.4 11/14/2015 11:2015 6:11am Platelet Count 173 x10E3/uL 150-379 11/14/2015 11:11/15/2015 6: 11am Neutrophils % (Send Out) 70 % . 11/14/2015 11:11/15/2015 6:11am Lymphocytes 14 % . 11/14/2015 11:11/15/2015 6:11am Monocytes 10 % . 11/14/2015 11:11/15/2015 6:11am Eosinophils 5 % . 11/14/2015 11:11/15/2015 6:11am Basophils 1 % . 11/14/2015 11:11/15/2015 6:11am Absolute Neutrophils (auto) 2.9 x10E3/uL 1.4-7.0 11/14/2015 11: 6:11am Absolute Lymphocytes (auto) 0.6 x10E3/uL L 0.7-3.1 11/14/2015 11: 6:11am Absolute Monocytes (auto) 0.4 x10E3/uL 0.1-0.9 11/14/2015 11:11/14 6:11am Absolute Eosinophils (auto) 0.2 x10E3/uL 0.0-0.4 11/14/2015 11: 6:11am Absolute Basophils (auto) 0.0 x10E3/uL 0.0-0.2 11/14/2015 11:11/14 6:11am Immature Granulocytes 0 % . 11/14/2015 11:11/15/2015 6:11am Absolute Immature Granulocyte (auto 0.0 x10E3/uL 0.0-0.1 11/14/2015 11: 11/15/2015 6:11am Performed at: [email or web address] [id number] Executive Cyber Leader: ROJAS Whitaker MD, Phone: [phone] B-Type Natriuretic Peptide 315.2 pg/mL H 0.0-100.0 11/14/2015 11: 1:37pm Performed at: DA - [facility] [address] [address], [place], [place] [id number] Executive Cyber Leader: ROJAS Whitaker MD, Phone: [phone] Glucose Level 171 mg/dL H 65-99 11/14/2015 11:11/15/2015 7:11am Blood Urea Nitrogen 21 mg/dL 8-27 11/14/2015 11:1811/15/2015 7:11am Creatinine 0.82 mg/dL 0.76-1.27 11/14/2015 11:11/15/2015 7:11am BUN/Creatinine Ratio 26 H 10-11/14/2015 11:11/15/2015 7:11am Sodium Level 139 mmol/L 134-144 11/14/2015 11:11/15/2015 7:11am Potassium Level 5.2 mmol/L 3.5-5.2 11/14/2015 11:11/15/2015 7: 11am Chloride Level 97 mmol/L 97-108 11/14/2015 11:11/15/2015 7:11am Carbon Dioxide Level 28 mmol/L 18-11/14/2015 11:11/15/2015 7: 11am Calcium Level 8.9 mg/dL 8.6-10.2 11/14/2015 11:11/15/2015 7:11am Serum Total Protein 6.9 g/dL 6.0-8.5 11/14/2015 11:11/15/2015 7: 11am Albumin 3.6 g/dL 3.5-4.8 11/14/2015 11:11/15/2015 7:11am Globulin 3.3 g/dL 1.5-4.5 11/14/2015 11:11/15/2015 7:11am Albumin/Globulin Ratio 1.1 1.1-2.5 11/14/2015 11:11/15/2015 7: 11am Total Bilirubin 0.4 mg/dL 0.0-1.2 11/14/2015 11:11/15/2015 7:11am Alkaline Phosphatase 160 IU/L H 39-117 11/14/2015 11:1811/15/2015 7: 11am Aspartate Amino Transf (AST/SGOT) 47 IU/L H 0-40 11/14/2015 11:18am 7:11am Alanine Aminotransferase (ALT/SGPT) 46 IU/L H 0-44 11/14/2015 11:18am 7:11am Performed at: DA - [facility] [id number] [address], [place], [place] [id number] Executive Cyber Leader: ROJAS Whitaker MD, Phone: [phone] EGFR IF NONAFRICN AM 87 >59 11/14/2015 11:18am 11/15/2015 7:11am Result Units: mL/min/1.73 EGFR IF AFRICN AM 100 >59 11/14/2015 11:18am 11/15/2015 7:11am Result Units: mL/min/1.73 White Blood Count 5.1 K/uL 5.0-10.0 12/10/2015 5:56am 12/10/2015 6: 20am Red Blood Count 4.38 M/uL L 4.60-5.40 12/10/2015 5:56am 12/10/2015 6: 20am Hemoglobin 12.8 g/dL L 14.0-18.0 12/10/2015 5:56am 12/10/2015 6:20am Hematocrit 40.7 % 40.0-54.0 12/10/2015 5:56am 12/10/2015 6:20am Mean Corpuscular Volume 92.9 fL 80.0-94.0 12/10/2015 5:56am 12/10/2015 6:20am Mean Corpuscular Hemoglobin 29.2 pg 26.0-33.0 12/10/2015 5:56am 2015 6:20am Mean Corpuscular Hemoglobin Concent 31.4 g/dL 31.0-36.0 12/10/2015 5: 56am 12/10/2015 6:20am Red Cell Distribution Width 13.6 % 11.5-14.5 12/10/2015 5:56am 2015 6:20am RDW Standard Deviation 46.0 fL H 35.1-43.9 12/10/2015 5:56am 12/10/2015 6:20am Platelet Count 122 K/uL L 130-400 12/10/2015 5:5612/10/2015 6:20am Mean Platelet Volume 10.5 fL 7.0-11.0 12/10/2015 5:12/10/2015 6: 20am Neutrophils (%) (Auto) 57.9 % 42.0-75.0 12/10/2015 5:12/10/2015 6: 20am Lymphocytes (%) (Auto) 26.7 % 16.0-44.0 12/10/2015 5:12/10/2015 6: 20am Monocytes (%) (Auto) 12.8 % H 2.0-9.0 12/10/2015 5:12/10/2015 6: 20am Eosinophils (%) (Auto) 1.6 % 0-7.0 12/10/2015 5:12/10/2015 6:20am Basophils (%) (Auto) 0.8 % 0-1 12/10/2015 5:12/10/2015 6:20am Immature Granulocyte % (Auto) 0.2 % 0-0.5 12/10/2015 5:12/10/2015 6:20am Nucleated Red Blood Cells % 0.0 /100WBC 0-0 12/10/2015 5:2015 6:20am Neutrophils # (Auto) 3.0 K/uL 1.9-8.0 12/10/2015 5:12/10/2015 6: 20am Lymphocytes # (Auto) 1.4 K/uL 0.9-5.2 12/10/2015 5:12/10/2015 6: 20am Monocytes # (Auto) 0.7 K/uL 0.16-1.0 12/10/2015 5:12/10/2015 6: 20am Eosinophils # (Auto) 0.1 K/uL 0-0.8 12/10/2015 5:12/10/2015 6: 20am Basophils # (Auto) 0.0 K/uL 0-0.2 12/10/2015 5:12/10/2015 6:20am Immature Granulocyte # (Auto) 0.01 K/uL 0-0.40 12/10/2015 5:2015 6:20am Nucleated Red Blood Cells # 0.00 K/uL 0.0-0.012 12/10/2015 5:56am 12/09 6:20am Urine Color YELLOW 12/08/2015 2:45pm 12/08/2015 3:01pm Urine Appearance CLEAR 12/08/2015 2:45pm 12/08/2015 3:01pm Urine Glucose (UA) NEGATIVE NEGATIVE 12/08/2015 2:45pm 12/08/2015 3: 01pm Urine Bilirubin NEGATIVE NEGATIVE 12/08/2015 2:45pm 12/08/2015 3: 01pm Urine Ketones NEGATIVE NEGATIVE 12/08/2015 2:45pm 12/08/2015 3:01pm Urine Specific [place] 1.020 1.005-1.030 12/08/2015 2:45pm 2015 3:01pm Urine Occult Blood NEGATIVE NEGATIVE 12/08/2015 2:45pm 12/08/2015 3: 01pm Urine pH 7.5 4.5-8.0 12/08/2015 2:45pm 12/08/2015 3:01pm Urine Protein NEGATIVE NEGATIVE 12/08/2015 2:45pm 12/08/2015 3:01pm Urine Urobilinogen 0.2 E.U./dL 0.2-1.0 12/08/2015 2:45pm 12/08/2015 3: 01pm Urine Nitrate NEGATIVE NEGATIVE 12/08/2015 2:45pm 12/08/2015 3:01pm Urine Leukocyte Esterase NEGATIVE NEGATIVE 12/08/2015 2:45pm 2015 3:01pm Random Glucose 83 mg/dL 65-115 12/10/2015 5:56am 12/10/2015 6:30am Bedside Glucose 120 mg/dL 70-120 12/10/2015 10:34am 12/10/2015 10:38am Notify Nurse Blood Urea Nitrogen 20 mg/dL 8-25 12/10/2015 5:56am 12/10/2015 6:30am Creatinine 0.81 mg/dL L 0.9-1.6 12/10/2015 5:56am 12/10/2015 6:30am Glomerular Filtration Rate Calc 92.90 mL/min 12/10/2015 5:56am 2015 6:30am MULTIPLY RESULT BY 1.210 IF THE PATIENT IS -MARSHALLESE Units are mL/min/1.73 m2 > 60 Normal kidney function 30-59 Moderately decreased kidney function 15-29 Severely decreased kidney function <15 End-stage kidney failure BUN/Creatinine Ratio 24.7 12/10/2015 5:56am 12/10/2015 6:30am Sodium Level 139 mEq/L 133-145 12/10/2015 5:5612/10/2015 6:30am Potassium Level 3.8 mEq/L 3.5-5.1 12/10/2015 5:56am 12/10/2015 6:30am Chloride Level 98 mEq/L 98-116 12/10/2015 5:56am 12/10/2015 6:30am Carbon Dioxide Level 36 mEq/L H 22-34 12/10/2015 5:56am 12/10/2015 6: 30am Anion Gap 8.8 6-13 12/10/2015 5:56am 12/10/2015 6:30am Calcium Level 8.8 mg/dL 8.2-10.6 12/10/2015 5:56am 12/10/2015 6:30am Total Protein 7.1 gm/dL 6.0-8.4 12/08/2015 12:12p12/08/2015 12:42pm Albumin 3.5 gm/dL 3.2-5.0 12/08/2015 12:12p12/08/2015 12:42pm Globulin 3.6 gm/dL H 2.0-3.0 12/08/2015 12:12p12/08/2015 12:42pm Albumin/Globulin Ratio 1.0 L 1.4-2.4 12/08/2015 12:12p12/08/2015 12: 42pm Total Bilirubin 0.9 mg/dL 0.1-1.3 12/08/2015 12:12p12/08/2015 12: 42pm Alkaline Phosphatase 96 U/L 35-125 12/08/2015 12:12p12/08/2015 12: 42pm Aspartate Amino Transf (AST/SGOT) 40 U/L 5-40 12/08/2015 12:12p2015 12:42pm Alanine Aminotransferase (ALT/SGPT) 30 U/L 5-40 12/08/2015 12:12p 12:42pm Troponin I 0.01 ng/mL 0.0-0.02 12/09/2015 5:18am 12/09/2015 6:33am Glycated Hemoglobin 6.0 % 4.0-6.0 12/08/2015 12:12pm 12/09/2015 3:53pm Lactic Acid Level 1.0 mmol/L 0.5-2.2 12/08/2015 12:40pm 12/08/2015 1: 03pm B-Type Natriuretic Peptide 597 pg/mL H 15-100 12/08/2015 12:12pm 2015 4:27pm Bedside Troponin I < 0.05 ng/mL 0.00-0.05 [...] RESULT VERIFIED AND CALLED TO CARLOS ON S AT 2154 BY NRD. 10-15 mcg/mL therapeutic [...] Blood No growth. 12/08/2015 1:51pm 12/09/2015 1:53am Preliminary Wound Culture Scrotum CORYNEBACTERIUM SPECIES 12/01/2013 2:30pm 2013 10:34am Final PSEUDOMONAS AERUGINOSA 12/01/2013 2:30pm 12/03/2013 10:34am Final Procedures No known history of procedures. Encounters Encounter Location Arrival/Admit Date Discharge/Depart Date Attending Provider [facility] 10:28am 12/10/15 1:30pm STU TERRELL M.D. Office Visit APARNA AGUILAR 12/01/15 10:30am APARNA AGUILAR MD Registered Practice [facility] AGU[facility] 12/01/15 10:30am APARNA AGUILAR MD [facility] 11[facility]17/15 10:41am APARNA AGUILAR MD Office Visit APARNA R JEFF 11/17/15 9:30am APARNA AGUILAR MD Reg[facility] 11/14/15 11:45am APARNA AGUILAR MD Office Visit APARNA R JEFF 11/14/15 11:00am APARNA AGUILAR MD Registered Referred [facility] 11/09/15 11:08am APARNA AGUILAR MD Office Visit APARNA R JEFF 11/09/15 11:00am APARNA AGUILAR MD [facility] 11/03/15 2:52pm 4:00pm AMANDA FIELDS M.D. Office Visit APARNA R JEFF 10/28/15 11:30am APARNA AGUILAR MD Office Visit APARNA R JEFF 10/13/15 11:15am APARNA AGUILAR MD Departed Emergency Room [facility] 09/30/15 4:24pm 6:42pm SANIA PACKER DO Office Visit APARNA R JEFF 09/08/15 11:00am [facility]NA AGUILAR MD [facility] 09/08/15 11:00am APARNA AGUILAR MD Registered Referred [facility] 08/16/15 12:00pm OTHER, DOCTOR Office Visit APARNA R JEFF 08/16/15 11:15am APARNA AGUILAR MD Office Visit APARNA R JEFF 07/25/15 2:00pm APARNA AGUILAR MD Registered Clinic [facility] 07/06/15 1:46pm APARNA AGUILAR MD Office Visit APARNA R JEFF 07/06/15 1:45pm APARNA AGUILAR MD Discharged Inpatient (obs) [facility] 06/16/15 1:19pm 4:13pm SANIA VAUGHAN MD Office Visit APARNA R JEFF 06/15/15 11:30am APARNA AGUILAR MD Office Visit APARNA R JEFF 05/31/15 9:45am APARNA AGUILAR MD Discharged Inpatient (obs) [facility] 05/23/15 8:13am 07/08 12:14pm SANIA VAUGHAN MD Registered Referred [facility] 05/10/15 11:13am APARNA AGUILAR MD Office Visit APARNA R JEFF 05/10/15 10:45am APARNA AGUILAR MD Office Visit APARNA R JEFF 04/26/15 10:15am APARNA AGUILAR MD Office Visit [facility]NA R JE[facility] 04/20/15 1:15pm APARNA AGUILAR MD Office Visit [facility]NA R JE[facility] 04/06/15 10:45am APARNA AGUILAR MD Office Visit APARNA R JEFF 03/24/15 10:30am APARNA AGUILAR MD Discharged Inpatient (obs) [facility] 03/16/15 3:50pm 5:40pm TATIANA HAWK M.D. Office Visit APARNA R JEFF 03/15/15 10:45am APARNA AGUILAR MD Registered Referred [facility] 02/23/15 12:47pm APARNA AGUILAR MD Departed Clinic [facility] 02/22/15 11:13am 02/22/15 12: 02pm GIOVANI MONTANEZ MD Registered Referred [facility] 02/22/15 10:57am APARNA AGUILAR MD Office Visit APARNA R JEFF 02/22/15 10:45am APARNA AGUILAR MD Office Visit PAARNA R JEFF 02/09/15 10:15am APARNA AGUILAR MD Departed Clinic [facility] 01/18/15 11:27am 01/18/15 2: 10pm TATIANA HAWK M.D. Office Visit APARNA R JEFF 01/18/15 11:00am APARNA AGUILAR MD Discharged Inpatient (obs) [facility] 01/09/15 11:45am 5:55pm TATIANA HAWK M.D. Departed Emergency Room [facility] 12/30/14 11:10am 1:40pm CLARISA ALVES M.D. Office Visit APARNA R JEFF 12/27/14 11:15am APARNA AGUILAR MD Office Visit APARNA R JEFF 12/20/14 1:15pm APARNA AGUILAR MD Registered Referred [facility] 12/16/14 10:00am APARNA AGUILAR MD Office Visit APARNA R JEFF 12/16/14 9:45am APARNA AGUILAR MD Office Visit APARNA R JEFF 12/09/14 10:45am APARNA AGUILAR MD Departed Emergency Room [facility] 11/30/14 9:15am 11:05am JAMES WHITE M.D. Office Visit APARNA R JEFF 11/22/14 9:45am APARNA AGUILAR MD Office Visit APARNA R JEFF 11/05/14 11:30am APARNA AGUILAR MD Departed Emergency Room [facility] 11/03/14 11:29am 2:37pm NICHOLAS LOZOYA M.D. Departed Clinic [facility] 10/26/14 10:38am 10/26/14 11: 49am GIOVANI MONTANEZ MD Office Visit APARNA R JEFF 10/26/14 10:00am APARNA AGUILAR MD Departed Emergency Room [facility] 10/21/14 10:14am 11:43am SANIA PACKER DO Office Visit APARNA R JEFF 10/13/14 1:00pm APARNA AGUILAR MD Departed Clinic [facility] 10/12/14 10:45am 10/12/14 11: 11am GIOVANI MONTANEZ MD Departed Clinic [facility] 09/28/14 10:32am 09/28/14 12: 19pm GIOVANI MONTANEZ MD Office Visit [facility] 09/28/14 10:15am APARNA AGUILAR MD Office Visit [facility] 09/15/14 11:15am APARNA AGUILAR MD Office Visit [facility]NA R JEFF 09/01/14 10:45am APARNA AGUILAR MD Departed Clinic [facility] 08/31/14 10:54am 08/31/14 11: 20am GIOVANI MONTANEZ MD Office Visit [facility] 08/18/14 10:45am APARNA AGUILAR MD Office Visit [facility]NA [facility] 08/10/14 10:30am APARNA AGUILAR MD Discharged Inpatient [facility] 08/04/14 4:51pm 08/07/14 5 :05pm TATIANA HAWK M.D. Registered Referred [facility] 08/03/14 12:03pm APARNA AGUILAR MD Office Visit [facility]ARNA R JEFF 08/03/14 11:15am APARNA AGUILAR MD Departed Clinic [facility] 08/03/14 10:26am 08/03/14 11: 34am GIOVANI MONTANEZ MD Office Visit [facility]NA [facility] 07/22/14 10:45am APARNA AGUILAR MD Discharged Inpatient [facility] 07/09/14 11:21am 07/12/14 2:45pm TATIANA HAWK M.D. Registered Referred [facility] 07/08/14 10:00am APARNA AGUILAR MD Office Visit [facility]NA [facility] 07/08/14 9:00am APARNA AGUILAR MD Departed Clinic [facility] 07/06/14 10:21am 07/06/14 11: 19am GIOVANI MONTANEZ MD Office Visit [facility] 07/02/14 10:30am APARNA AGUILAR MD Discharged Inpatient [facility] 06/15/14 1:11am 06/16/14 11:50am TATIANA HAWK M.D. Departed Clinic [facility] 06/14/14 11:24am 06/14/14 1: 09pm APARNA AGUILAR MD Office Visit APARNA R [facility]FF 06/14/14 11:00am APARNA AGUILAR MD Office Visit APARNA R JEFF 06/02/14 11:15am APARNA AGUILAR MD Discharged Inpatient [facility] 05/21/14 10:17pm 05/24/14 11:40am TATIANA HAWK M.D. Office Visit APARNA Burks JEFF 04/26/14 8:45am [facility]ILAR [facility] 2:16pm APARNA AGUILAR MD Office Visit APARNA R JEFF 04/20/14 1:30pm APARNA AGUILAR MD Departed Clinic [facility] 04/20/14 11:00am 04/20/14 11: 57am GIOVANI MONTANEZ MD Office Visit APARNA R JEFF 04/14/14 11:15am APARNA AGUILAR MD Office Visit APARNA R JEFF 04/01/14 10:30am APARNA AGUILAR MD Departed Clinic [facility] 03/23/14 10:53am 03/23/14 12: 39pm GIOVANI MONTANEZ MD Office Visit APARNA R JEFF 03/18/14 10:15am APARNA AGUILAR MD Office Visit APARNA R JEFF 03/11/14 11:15am APARNA AGUILAR MD Departed Clinic [facility] 03/09/14 11:00am 03/09/14 11: 22am GIOVANI MONTANEZ MD Discharged Inpatient (obs) [facility] 03/06/14 8:25pm 2:40pm TATIANA HAWK M.D. Office Visit APARNA AGUILAR 03/05/14 11:15am APARNA AGUILAR MD Office Visit APARNA TURCIOSS 03/01/14 9:15am APARNA AGUILAR MD Registered Referred [facility] 02/26/14 10:23am APARNA AGUILAR MD Office Visit APARNA TURCIOSS 02/26/14 10:00am APARNA AGUILAR MD Departed Clinic [facility] 02/23/14 11:35am 02/23/14 12: 01pm GIOVANI MONTANEZ MD Discharged Inpatient [facility] 02/16/14 8:34pm 02/19/14 4 :30pm TATIANA HAWK M.D. Discharged Inpatient [facility] 02/12/14 2:30am 02/15/14 11:00am APARNA AGUILAR MD Departed Emergency Room [facility] 02/08/14 10:15am 1:28pm CAROLINA DUMONT M.D. Office Visit APARNA TURCIOSS 02/02/14 2:15pm APARNA AGUILAR MD Departed Clinic [facility] 02/02/14 1:31pm 02/02/14 2: 25pm GIOVANI MONTANEZ MD Office Visit APARNA TURCIOSS 01/21/14 10:00am APARNA AGUILAR MD Departed Clinic [facility] 01/12/14 11:43am 01/12/14 12: 38pm GIOVANI MONTANEZ MD Office Visit APARNA TURCIOSS 01/07/14 10:00am APARNA AGUILAR MD Departed Clinic [facility] 12/22/13 12:49pm 12/22/13 1: 23pm GIOVANI MONTANEZ MD Office Visit APARNA TURCIOSS 12/22/13 11:30am APARNA AGUILAR MD Office Visit APARNA R JEFF 12/10/13 11:00am APARNA AGUILAR MD Registered Recurring [facility] 12/01/13 3:00pm APARNA AGUILAR MD Departed Clinic [facility] 12/01/13 2:25pm 12/01/13 2: 50pm GIOVANI MONTANEZ MD Discharged Inpatient (obs) [facility] 11/27/13 2:30am 01/04 10:54am APARNA AGUILAR MD Office Visit APARNA R JEFF 11/26/13 10:45am APARNA AGUILAR MD Office Visit APARNA R JEFF 11/12/13 11:30am APARNA AGUILAR MD Registered Referred [facility] 11/05/13 9:28am APARNA AGUILAR MD Office Visit APARNA R JEFF 11/05/13 9:15am APARNA AGUILAR MD Discharged Inpatient [facility] 10/30/13 12:37pm 11/01/13 10:45am APARNA AGUILAR MD Office Visit APARNA R JEFF 10/27/13 10:45am APARNA AGUILAR MD Office Visit APARNA R JEFF 10/06/13 11:15am APARNA AGUILAR MD Office Visit APARNA R JEFF 09/24/13 10:00am APARNA AGUILAR MD Office Visit APARNA R JEFF 09/08/13 10:30am APARNA AGUILAR MD Office Visit APARNA R JEFF 08/25/13 10:00am APARNA AGUILAR MD Registered Referred [facility] 08/20/13 12:28pm APARNA AGUILAR MD Office Visit APARNA R JEFF 08/18/13 11:00am APARNA AGUILAR MD Departed Clinic [facility] 08/11/13 2:45pm 08/11/13 3: 19pm GIOVANI MONTANEZ MD Office Visit APARNA R JEFF 08/11/13 2:15pm APARNA AGUILAR MD Office Visit APARNA R JEFF 08/05/13 10:45am APARNA AGUILAR MD Office Visit APRANA TURCIOSS 07/31/13 1:00pm APARNA AGUILAR MD Registered Referred [facility] 07/31/13 11:38am APARNA AGUILAR MD Office Visit APARNA TURCIOSS 07/30/13 10:05am APARNA AGUILAR MD Office Visit APARNA R JEFF 07/24/13 11:30am APARNA AGUILAR MD Office Visit APARNA TURCIOSS 07/14/13 10:30am APARNA AGUILAR MD Office Visit APARNA R JEFF 06/30/13 10:30am APARNA AGUILAR MD Departed Clinic [facility] 06/09/13 11:37am 06/09/13 12: 47pm GIOVANI MONTANEZ MD Office Visit APARNA Burks JEFF 06/09/13 11:30am APARNA AGUILAR MD Registered Referred [facility] 06/02/13 11:38am APARNA AGUILAR MD Departed Clinic [facility] 06/02/13 11:35am 06/02/13 3: 56pm GIOVANI MONTANEZ MD Office Visit APARNA TURCIOSS 06/02/13 11:15am APARNA AGUILAR MD Discharged Inpatient [facility] 05/28/13 7:10am 05/29/13 11:30am APARNA AGUILAR MD Registered Referred [facility] 05/27/13 1:50pm APARNA AGUILAR MD Office Visit APARNA TURCIOSS 05/27/13 1:00pm APARNA AGUILAR MD Discharged Inpatient (obs) [facility] 05/25/13 9:20am 09/03 10:51am APARNA AGUILAR MD Office Visit APARNA TURCIOSS 05/19/13 11:15am APARNA AGUILAR MD Registered Referred [facility]. [facility] 05/13/13 3:05pm THI CHUNG M.D. Departed Clinic [facility] 05/12/13 1:36pm 05/12/13 2: 44pm GIOVANI MONTANEZ MD Office Visit APARNA AGUILAR 05/12/13 1:15pm APARNA AGUILAR MD Office Visit APARNA AGUILAR 05/06/13 11:15am APARNA AGUILAR MD Office Visit APARNA AGUILAR 04/22/13 11:00am APARNA AGUILAR MD Office Visit APARNA AGUILAR 04/09/13 10:30am APARNA AGUILAR MD Office Visit APARNA AGUILAR 03/26/13 11:00am APARNA AGUILAR MD Recent Diagnosis Hypoxia
--- OUTSIDE RECORDS SUMMARY | 2016-11-10 06:25 | XMS REPORT | Continuity of Care Document ---
Author Author Aida Benson [facility] Aida Benson [facility] Address Unknown Phone Unavailable Care Team Providers Care Sword Swallower Name Role Phone APARNA AGUILAR MD Unavailable [phone] Insurance Providers Payer Name Policy Number Subscriber Name Relationship [employer] [id number] Amee Anderson Self / Same As Patient For Life [id number] Amee Anderson Self / Same As Patient Chief Complaint and Reason for Visit Chief Complaint Knee Pain Reason for Visit [id number] Contusion of right knee Problems Active Problems Medical Problem Onset Date Status Abdominal wall cellulitis Unknown Acute Actinic keratosis Unknown Acute Acute bronchitis Unknown Acute Acute sinusitis 02/26/2013 Chronic Altered [...] dermatitis 12/18/2010 Chronic oxygen dependent Unknown Acute Medications Current Home Medications Medication Dose Units Route Directions Days/Qty Instructions Start Date Gabapentin 600 Mg 600 Mg Oral Twice A Day 04/04/11 Oxycodone/Acetaminophen 1 Ea 1-2 Ea Oral Every 6 Hours As Needed 09/03 Oxycodone Hcl 40 Mg 40 Mg Oral Three Times A Day as needed for For Pain If Needed 07/09/14 Levothyroxine Sodium 75 Mcg 1 Tab Oral Daily for Thyroid 90 11/22/14 Polyethylene Glycol 255 Gm 17 Gm Oral Daily 1 12/06/14 Nitroglycerin 0.4 Mg 0.4 Mg Sublingual As Needed for Angina Pain 1 Cholecalciferol 2,000 Unit 2,000 Unit Oral Daily 12/30/14 Aspirin 81 Mg Oral Daily 01/09/15 Albuterol 2.5 Mg/3 Ml 1 Ea Inhalation As Directed as needed for Q4prn To Ease Breathing 25 03/08/15 Ibuprofen 800 Mg 800 Mg Oral Three Times A Day as needed for Muscle Pain & Inflammation 90 04/06/15 Ranitidine Hcl 150 Mg 150 Mg Oral Twice A Day for Indigestion 180 Magnesium Oxide 400 Mg 400 Mg Oral Twice A Day for Nutrient Replacement 180 05/05/15 Potassium Chloride 20 Meq 20 Meq Oral Twice A Day 180 05/05/15 Ondansetron 4 Mg 4 Mg Oral Daily as needed for Nausea 30 05/10/15 Fluticasone Propionate 16 Gm 1-2 [place] Nasal Daily 1 05/24/15 Sertraline Hcl 100 Mg 100 Mg Oral Daily for Antidepressant 90 06/29/15 Colchicine 0.6 Mg 0.6 Mg Oral Daily for Pain 90 06/29/15 Lorazepam 0.5 Mg 0.5 Mg Oral Every 4 Hours As Needed for Anxiety 60 Tramadol Hcl 50 Mg 1-2 Tab Oral Every 6 Hours As Needed for Breakthrough Pain 100 06/29/15 Minocycline Hcl 100 Mg 100 Mg Oral Daily 90 06/29/15 Tamsulosin Hcl 0.4 Mg 0.4 Mg Oral Daily for Dysurea 90 07/20/15 Ipratropium-Albuterol Respimat 1 Puffs Oral Four Times Daily 1 Spironolactone 100 Mg 100 Mg Oral Daily for Not Specified 30 08/16/15 Insulin Glargine Solostar 20 Unit Subcutaneously Bedtime for Diabetes 5 09/08/15 Furosemide 80 Mg 80 Mg Oral Daily for Not Specified 30 09/27/15 Carvedilol 3.125 Mg 3.125 Mg Oral Daily 10/14/15 Sulfamethoxazole-Trimethoprim 1 Tab 1 Tab Oral Twice A Day 20 10/28/15 Past Home Medications Medication Directions Ordered Status Nitroglycerin 0.4 Mg Sub, 0.4 Mg Sublingual As Needed 04/07/08 Discontinued Citalopram Hydrobromide 20 Mg Tab, 2 Tab Oral Daily 08/28/10 Discontinued Insulin Glargine 100 Mg/Ml Inj, 24 Units Subcutaneously Bedtime 08/28/10 Discontinued Insulin Regular (Human) 1 Ml Inj, 5 Units Subcutaneously Before Meals Discontinued Clopidogrel Bisulfate 75 Mg Tab, 1 Tab Oral Daily 08/28/10 Discontinued Potassium Chloride 10 Meq Tab, 4 Tab Oral Three Times A Day 08/28/10 Discontinued Spironolactone 100 Mg Tab, 1 Tab Oral Daily 08/28/10 Discontinued Bumetanide 1 Mg Tab, 1 Tab Oral Twice A Day 08/28/10 Discontinued Colchicine 0.6 Mg Tab, 1 Tab Oral Daily 08/28/10 Discontinued Amiodarone Hcl 200 Mg Tab, 1 Tab Oral Daily 08/28/10 Discontinued Carvedilol 12.5 Mg Tab, 1 Tab Oral Twice A Day 08/28/10 Discontinued Gabapentin 600 Mg Tab, 1 Tab Oral Twice A Day 08/28/10 Discontinued Polyethylene Glycol 3,350 Nf Pow, 08/28/10 Discontinued Ferrous Sulfate 325 Mg Tab, 1 Tab Oral Daily 08/28/10 Discontinued Magnesium Oxide 400 Mg Cap, 1 Tab Oral Three Times A Day 08/28/10 Discontinued Metoclopramide Hcl 5 Mg Tab, 1 Tab Oral Four Times Daily 08/28/10 Discontinued Oxycodone/Acetaminophen 1 Ea Tab, 1 Tab Oral Four Times Daily 08/28/10 Discontinued Levothyroxine Sodium 75 Mcg Tab, 1 Tab Oral Daily 08/28/10 Discontinued Tramadol Hcl 50 Mg Tab, 1 - 2 Tabs Oral Four Times Daily 08/28/10 Discontinued Metolazone 5 Mg Tab, 1 Tab Oral Every 3 Days 08/28/10 Discontinued Simvastatin 20 Mg Tab, 1 Tab Oral Bedtime 08/28/10 Discontinued Sulfamethoxazole-Trimethoprim 1 Tab Tab, 1 Tab Oral Twice A Day 12/14/10 Discontinued Carvedilol 12.5 Mg Tab, 0.5 Tab Oral Twice A Day 01/02/11 Discontinued Ferrous Sulfate 325 Mg Tab, 325 Mg Oral Daily 01/16/11 Discontinued Tramadol Hcl 50 Mg Tab, 1 - 2 Tab Oral Every 6 Hours As Needed 01/16/11 Discontinued Bumetanide 1 Mg Tab, 1 Mg Oral Twice A Day 02/15/11 Discontinued Potassium Chloride 10 Meq Tab, 10 Meq Oral 3 Twice A Day 02/15/11 Discontinued Sertraline Hcl 100 Mg Tab, 100 Mg Oral Twice A Day 02/15/11 Discontinued Ciprofloxacin Hcl 250 Mg Tab, 250 Mg Oral Twice A Day 02/21/11 Discontinued Sertraline Hcl 100 Mg Tab, 100 Mg Oral Daily 02/28/11 Discontinued Doxycycline Hyclate 100 Mg Tab, 100 Mg Oral Twice A Day 03/05/11 Discontinued Spironolactone 100 Mg Tab, 100 Mg Oral Daily 03/14/11 Discontinued Sertraline Hcl 100 Mg Tab, 100 Mg Oral Daily 03/16/11 Discontinued [Isodril] , 10 Mg Oral Twice A Day 03/16/11 Discontinued Sertraline Hcl 100 Mg Tab, 100 Mg Oral Daily 03/16/11 Discontinued Potassium Chloride 10 Meq Tab, 10 Meq Oral 2 4 Times A Day 04/04/11 Discontinued Magnesium Oxide 400 Mg Tab, 400 Mg Oral Twice A Day 04/04/11 Discontinued Carvedilol 3.125 Mg Tab, 3.125 Mg Oral Twice A Day 04/04/11 Discontinued Spironolactone 100 Mg Tab, 100 Mg Oral Daily 05/03/11 Discontinued Levothyroxine Sodium 75 Mcg Tab, 1 Tab Oral Daily 05/03/11 Discontinued Amiodarone Hcl 200 Mg Tab, 1 Tab Oral Daily 05/03/11 Discontinued Sulfamethoxazole-Trimethoprim 1 Tab Tab, 1 Tab Oral Twice A Day 06/11/11 Discontinued Sulfamethoxazole-Trimethoprim 1 Tab Tab, 1 Tab Oral Twice A Day 06/20/11 Discontinued Sulfamethoxazole-Trimethoprim 1 Tab Tab, 1 Tab Oral Twice A Day 06/22/11 Discontinued Levothyroxine Sodium 75 Mcg Tab, 1 Tab Oral Daily 07/31/11 Discontinued Nitroglycerin 0.4 Mg Sub, 0.4 Mg Sublingual As Needed 07/31/11 Discontinued Ondansetron 4 Mg Tab, 4 Mg Oral Daily 08/17/11 Discontinued Bumetanide 1 Mg Tab, 1 Mg Oral Twice A Day 01/07/12 Discontinued Levothyroxine Sodium 75 Mcg Tab, 1 Tab Oral Daily 01/11/12 Discontinued Carvedilol 3.125 Mg Tab, 3.125 Mg Oral Twice A Day 01/11/12 Discontinued Colchicine 0.6 Mg Tab, 0.6 Mg Oral Daily 01/11/12 Discontinued Tramadol Hcl 50 Mg Tab, 1 - 2 Tab Oral Every 6 Hours As Needed 01/11/12 Discontinued Potassium Chloride Microencaps (K-Dur) 20 Meq Tab, 2 Tab Oral Three Times A Day 01/22/12 Discontinued Oxycodone Hcl 40 Mg Tab, 40 Mg Oral Daily 01/27/12 Discontinued Spironolactone 100 Mg Tab, 100 Mg Oral Daily 02/05/12 Discontinued Magnesium Oxide 400 Mg Tab, 400 Mg Oral Twice A Day 02/05/12 Discontinued Sertraline Hcl 100 Mg Tab, 100 Mg Oral Daily 03/17/12 Discontinued Influenza Virus Vaccine 0.5 Ml Inj, 0.5 Ml Intramuscular Onetime 03/24/12 Discontinued Nitroglycerin 0.4 Mg Sub, 0.4 Mg Sublingual As Needed 04/14/12 Discontinued Ondansetron 4 Mg Tab, 4 Mg Oral Every 4 Hours As Needed 04/21/12 Discontinued Ranitidine Hcl 150 Mg Tab, 150 Mg Oral Twice A Day 04/21/12 Discontinued Tamsulosin Hcl 0.4 Mg Cap, 0.4 Mg Oral Daily As Needed 05/07/12 Discontinued Albuterol-Ipratropium Aer, 2 Puffs Mapped To Inh, Do Not Use Three Times A Day 05/07/12 Discontinued Fluconazole 150 Mg Tab, 150 Mg Oral Weekly 05/07/12 Discontinued Ranitidine Hcl 150 Mg Tab, 150 Mg Oral Twice A Day for Indigestion 06/03/12 Discontinued Tramadol Hcl 50 Mg Tab, 1 - 2 Tab Oral Every 6 Hours As Needed 06/03/12 Discontinued Fluconazole 150 Mg Tab, 150 Mg Oral Daily 06/03/12 Discontinued Albuterol-Ipratropium Aer, 2 Puffs Mapped To Inh, Do Not Use Three Times A Day 06/11/12 Discontinued Magnesium Oxide 400 Mg Tab, 400 Mg Oral Twice A Day 06/25/12 Discontinued Levofloxacin 750 Mg Tab, 750 Mg Oral Daily 06/28/12 Discontinued Minocycline Hcl 100 Mg Cap, 100 Mg Oral Daily 07/09/12 Discontinued Fluconazole 100 Mg Tab, 100 Mg Oral Weekly 07/09/12 Discontinued Ondansetron 4 Mg Tab, 4 Mg Oral Every 4 Hours As Needed 07/16/12 Discontinued Minocycline Hcl 100 Mg Cap, 100 Mg Oral Daily 07/25/12 Discontinued Sulfamethoxazole-Trimethoprim 1 Tab Tab, 2 Tab Oral Twice A Day 07/28/12 Discontinued Clindamycin Hcl 300 Mg Cap, 300 Mg Oral Three Times A Day 07/28/12 Discontinued Sertraline Hcl 100 Mg Tab, 100 Mg Oral Daily 09/02/12 Discontinued Bumetanide 1 Mg Tab, 1 Mg Oral Twice A Day 09/02/12 Discontinued Lorazepam 0.5 Mg Tab, 0.5 Mg Oral Every 4 Hours As Needed 09/02/12 Discontinued Levofloxacin 500 Mg Tab, 500 Mg Oral Daily 09/04/12 Discontinued Insulin Glargine Solostar Inj, 20 Unit Subcutaneously Bedtime 09/12/12 Discontinued Tamsulosin Hcl 0.4 Mg Cap, 0.4 Mg Oral Daily 09/12/12 Discontinued Minocycline Hcl 100 Mg Cap, 100 Mg Oral D@06 09/24/12 Discontinued Sertraline Hcl 100 Mg Tab, 100 Mg Oral Daily 10/02/12 Discontinued Nitroglycerin 0.4 Mg Sub, 0.4 Mg Sublingual As Needed for Angina Pain Discontinued Spironolactone 100 Mg Tab, 100 Mg Oral Daily 11/03/12 Discontinued Levofloxacin 750 Mg Tab, 750 Mg Oral Daily 12/10/12 Discontinued Ondansetron 4 Mg Tab, 4 Mg Oral Every 4 Hours As Needed 12/23/12 Discontinued Tramadol Hcl 50 Mg Tab, 1 - 2 Tab Oral Every 6 Hours As Needed 12/23/12 Discontinued Tramadol Hcl 50 Mg Tab, 1 - 2 Tab Oral Every 6 Hours As Needed 12/23/12 Discontinued Levofloxacin 500 Mg Tab, 500 Mg Oral Daily 12/29/12 Discontinued Colchicine 0.6 Mg Tab, 0.6 Mg Oral Daily 01/27/13 Discontinued Carvedilol 3.125 Mg Tab, 3.125 Mg Oral Twice A Day 01/27/13 Discontinued Levothyroxine Sodium 75 Mcg Tab, 1 Tab Oral Daily 02/05/13 Discontinued Aspirin 81 Mg Tab, 81 Mg Oral Daily 02/05/13 Discontinued Tramadol Hcl 50 Mg Tab, 1 - 2 Tab Oral Every 6 Hours As Needed 02/18/13 Discontinued Sulfamethoxazole-Trimethoprim 1 Tab Tab, 1 Tab Oral Twice A Day 02/26/13 Discontinued Amoxicillin/Clavulanate Potas 875 Mg Tab, 875 Mg Oral Twice A Day 03/04/13 Discontinued Albuterol-Ipratropium Aer, 2 Puffs Mapped To Inh, Do Not Use Three Times A Day 03/26/13 Discontinued Influenza Virus Vaccine 0.5 Ml Inj, 0.5 Ml Intramuscular Onetime 04/09/13 Discontinued Lorazepam 0.5 Mg Tab, 0.5 Mg Oral Every 4 Hours As Needed 05/27/13 Discontinued Fluticasone Propionate (Nasal) 0.05 % Spr, 2 [place] Nasal Daily 05/27/13 Discontinued Levofloxacin 500 Mg Tab, 500 Mg Oral Daily 05/29/13 Discontinued Magnesium Oxide 400 Mg Tab, 400 Mg Oral Twice A Day for Nutrient Replacement 06/30/13 Discontinued Fluconazole 100 Mg Tab, 100 Mg Oral Weekly for Prevent Infection 06/30/13 Discontinued Tamsulosin Hcl 0.4 Mg Cap, 0.4 Mg Oral Daily for Dysurea 06/30/13 Discontinued Minocycline Hcl 100 Mg Cap, 100 Mg Oral Daily for Antibiotic 07/14/13 Discontinued Tramadol Hcl 50 Mg Tab, 1-2 Tab Oral Every 6 Hours As Needed for Breakthrough Pain 07/14/13 Discontinued Insulin Glargine Solostar Inj, 20 Unit Subcutaneously Bedtime for Diabetes Discontinued Sertraline Hcl 100 Mg Tab, 100 Mg Oral Daily for Antidepressant 08/05/13 Discontinued Lorazepam 0.5 Mg Tab, 0.5 Mg Oral Every 4 Hours As Needed 08/25/13 Discontinued Colchicine 0.6 Mg Tab, 0.6 Mg Oral Daily for Pain 10/06/13 Discontinued Lorazepam 0.5 Mg Tab, 0.5 Mg Oral Every 4 Hours As Needed for Anxiety Discontinued Carvedilol 3.125 Mg Tab, 3.125 Mg Oral Twice A Day for Heart Med 10/27/13 Discontinued Levothyroxine Sodium 75 Mcg Tab, 1 Tab Oral Daily for Thyroid 10/27/13 Discontinued Furosemide 80 Mg Tab, 80 Mg Oral Twice A Day 11/05/13 Discontinued Furosemide 80 Mg Tab, 80 Mg Oral Twice A Day for Chf 11/26/13 Discontinued Potassium Chloride 20 Meq Tab, 20 Meq Oral Twice A Day for Replacement Discontinued Ondansetron 4 Mg Tab, 4 Mg Oral Daily as needed for Nausea 11/27/13 Discontinued Albuterol/Ipratropium (Duoneb) 1 Ea Aers, 1 Puffs Inhalation Via Inhaler Four Times Daily 11/27/13 Discontinued Albuterol 2.5 Mg/3 Ml Neb, 1 Ea Inhalation As Directed as needed for Q4prn To Ease Breathing 11/30/13 Discontinued Lorazepam 0.5 Mg Tab, 0.5 Mg Oral Every 4 Hours As Needed for Anxiety Discontinued Ondansetron 4 Mg Tab, 4 Mg Oral Daily as needed for Nausea 02/08/14 Discontinued Fluticasone Propionate (Nasal) 0.05 % Spr, 1-2 [place] Nasal Daily for Stuffy Nose 02/12/14 Discontinued Nitroglycerin 0.4 Mg Sub, 0.4 Mg Sublingual As Needed for Angina Pain Discontinued Sulfamethoxazole-Trimethoprim 1 Tab Tab, 1 Tab Oral Twice A Day 02/15/14 Discontinued Sulfamethoxazole-Trimethoprim 1 Tab Tab, 1 Tab Oral Twice A Day 02/16/14 Discontinued Levofloxacin 750 Mg Tab, 750 Mg Oral Daily for Pneumonia 02/19/14 Discontinued Clindamycin Hcl 300 Mg Cap, 300 Mg Oral Three Times A Day for Pneumonia 02/19 Discontinued Lisinopril 5 Mg Tab, 5 Mg Oral Daily for Chf 02/19/14 Discontinued Ranitidine Hcl 150 Mg Tab, 150 Mg Oral Twice A Day for Indigestion 04/01/14 Discontinued Fluconazole 100 Mg Tab, 100 Mg Oral Weekly for Prevent Infection 04/01/14 Discontinued Tramadol Hcl 50 Mg Tab, 1-2 Tab Oral Every 6 Hours As Needed for Breakthrough Pain 04/01/14 Discontinued Magnesium Oxide 400 Mg Tab, 400 Mg Oral Twice A Day for Nutrient Replacement 04/07/14 Discontinued Furosemide 80 Mg Tab, 80 Mg Oral Twice A Day for Chf 04/07/14 Discontinued Lorazepam 0.5 Mg Tab, 0.5 Mg Oral Every 4 Hours As Needed for Anxiety Discontinued Tramadol Hcl 50 Mg Tab, 1-2 Tab Oral Every 6 Hours As Needed for Breakthrough Pain 06/02/14 Discontinued Spironolactone 100 Mg Tab, 100 Mg Oral Twice A Day 06/02/14 Discontinued Lorazepam 0.5 Mg Tab, 0.5 Mg Oral Every 4 Hours As Needed for Anxiety Discontinued Ibuprofen 800 Mg Tab, 800 Mg Oral Three Times A Day as needed for Muscle Pain & Inflammation 07/09/14 Discontinued Insulin Glargine Solostar Inj, 20 Unit Subcutaneously Bedtime for Diabetes Discontinued Potassium Chloride 20 Meq Tab, 20 Meq Oral Twice A Day 08/03/14 Discontinued Sertraline Hcl 100 Mg Tab, 100 Mg Oral Daily for Antidepressant 08/18/14 Discontinued Lorazepam 0.5 Mg Tab, 0.5 Mg Oral Every 4 Hours As Needed for Anxiety Discontinued Colchicine 0.6 Mg Tab, 0.6 Mg Oral Daily for Pain 10/12/14 Discontinued Tamsulosin Hcl 0.4 Mg Cap, 0.4 Mg Oral Daily for Dysurea 10/13/14 Discontinued Tramadol Hcl 50 Mg Tab, 1-2 Tab Oral Every 6 Hours As Needed for Breakthrough Pain 10/13/14 Discontinued Ciprofloxacin Hcl 500 Mg Tab, 500 Mg Oral Twice A Day 11/02/14 Discontinued Lorazepam 0.5 Mg Tab, 0.5 Mg Oral Every 4 Hours As Needed for Anxiety Discontinued Tramadol Hcl 50 Mg Tab, 1-2 Tab Oral Every 6 Hours As Needed for Breakthrough Pain 12/20/14 Discontinued Tramadol Hcl 50 Mg Tab, 1-2 Tab Oral Every 6 Hours As Needed for Breakthrough Pain 02/09/15 Discontinued Lorazepam 0.5 Mg Tab, 0.5 Mg Oral Every 4 Hours As Needed for Anxiety Discontinued Spironolactone 100 Mg Tab, 100 Mg Oral Daily Before Lunch for Not Specified 03/16/15 Discontinued Furosemide 80 Mg Tab, 80 Mg Oral Daily for Not Specified 03/16/15 Discontinued Tramadol Hcl 50 Mg Tab, 1-2 Tab Oral Every 6 Hours As Needed for Breakthrough Pain 04/06/15 Discontinued Metoprolol Succinate 25 Mg Tab, 25 Mg Oral Bedtime 09/30/15 Discontinued Social History Social History Problem Response Recorded Date/Time Hx Alcohol Use No 06/16/2015 2:45pm Hx Substance Use No 06/16/2015 2:45pm Hx Tobacco Use No 06/16/2015 2:45pm Hx Smoking Exposure No 06/16/2015 2:45pm Smoking Status Former smoker 11/03/2015 2:53pm Query Response Start Date Stop Date Smoking Status Former smoker Hospital Discharge Instructions No hospital discharge instructions. Plan of Care Discharge Date 11/03/15 4:00pm Disposition 01 HOME, SELF-CARE Condition at Discharge Stable Prescriptions See Medication Section Referrals APARNA AGUILAR MD - Additional Instructions/Education Ice to help with swelling. Elevate as much as possible. Continue with current pain meds. Follow up with your regular doctor next week as needed. Functional Status No functional status results. Allergies, Adverse Reactions, Alerts Allergen Type Severity Reaction Status Last Updated Allopurinol Allergy Unknown Active 06/16/15 Codeine Adverse Reaction Unknown Active 06/16/15 Metoclopramide Allergy Unknown Active 06/16/15 Venlafaxine Allergy Unknown Active 06/16/15 Celecoxib Adverse Reaction Unknown Active 06/16/15 Cephalosporins Allergy Unknown Active 06/16/15 Immunizations Name Given Type Influenza Vaccine, Inactivated 04/09/13 Administered Influenza, high dose, seasonal 03/17/15 Administered Vital Signs Acute Vital Signs Vital Response Date/Time Blood Pressure 0/82 mm Hg 11/03/2015 2:53pm Blood Pressure Mean 74 mm Hg 11/27/2013 1:24pm Blood Pressure Mean 55 mm Hg 11/03/2015 2:53pm Temperature (Fahrenheit) 98 degrees F (96.0 - 99.9) 11/03/2015 2:53pm Temperature (Calculated Celsius) 36.6696 degrees C 11/03/2015 2:53pm Temperature (Calculated Celsius) 36.08821 degrees C (36.4 - 37.5) 11/27/2013 1:24pm Temperature (Fahrenheit) 98.4 degrees F (96.0 - 99.9) 11/27/2013 1:24pm Temperature Source Oral 06/17/2015 4:10pm Temperature Source Oral 11/03/2015 2:53pm Temp 98.4 degrees F (96.0 - 99.9) 11/27/2013 1:22pm Temperature (Calculated Celsius) 36.11276 degrees C 11/27/2013 1:22pm Pulse Pulse Rate (adult) 106 bpm (60 - 100) 06/17/2015 4:10pm Pulse Rate (adult) 115 bpm (60 - 100) 11/27/2013 1:24pm Pulse Rate: ED 90 bpm 11/03/2015 2:53pm Respiratory Rate 18 breaths per minute (10 - 20) 11/03/2015 2:53pm Respiratory Rate 14 bpm (10 - 20) 11/27/2013 1:24pm Height (Feet) 5 ft 11/03/2015 2:53pm Height (Inches) 9 in. 11/03/2015 2:53pm Weight (Pounds) 250 lbs 11/03/2015 2:53pm Height 5 ft 9 in Weight 250 lb Body Mass Index 36.9 kg/m^2 Ambulatory Vital Signs Vital Response Date/Time Height 5 ft 5 in 10/28/2015 11:19am Weight 274 lbs 10/28/2015 11:19am Blood Pressure 104/68 mm Hg 10/28/2015 11:19am Body Surface Area 2.46 m2 10/28/2015 11:19am Body Mass Index 45.6 kg/m2 10/28/2015 11:19am Pulse Oximetry Pulse Oximetry 10/28/2015 11:19am Results Pending Laboratory Results Test Name Collection Date/Time Pending Microbiology Results Procedure Source Collection Date/Time Procedures No known history of procedures. Encounters Encounter Location Arrival/Admit Date Discharge/Depart Date Attending Provider Departed Emergency Room [place] [facility] 11/03/15 2:52pm 4:00pm AMANDA FIELDS M.D. Office Visit [facility] 10/28/15 11:30am APARNA AGUILAR MD Registered Practice [facility] 10/28/15 11:30am APARNA AGUILAR MD Office Visit [facility] 10/13/15 11:15am APARNA AGUILAR MD Departed Emergency Room [place] [facility] 09/30/15 4:24pm 6:42pm SANIA PACKER DO Office Visit [facility] 09/08/15 11:00am APARNA AGUILAR MD Registered Referred [facility] 09/08/15 11:00am [facility]AR [facility] 12:[facility] OTHER, DOCTOR Office Visit [facility]NA [facility] 08/16/15 11:15am APARNA AGUILAR MD Office Visit [facility] 07/25/15 2:00pm APARNA AGUILAR MD Registered Clinic [facility] 07/06/15 1:46pm APARNA AGUILAR MD Office Visit [facility] 07/06/15 1:45pm APARNA AGUILAR MD Discharged Inpatient (obs) [facility] 06/16/15 1:19pm 4:13pm SANIA VAUGHAN MD Office Visit [facility] 06/15/15 11:30am APARNA AGUILAR MD Office Visit [facility] 05/31/15 9:45am APARNA AGUILAR MD Discharged Inpatient (obs) [facility] 05/23/15 8:13am 07/08 12:14pm SANIA VAUGHAN MD Registered Referred [facility] 05/10/15 11:13am APARNA AGUILAR MD Office Visit [facility] 05/10/15 10:45am APARNA AGUILAR MD Office Visit [facility] 04/26/15 10:15am APARNA AGUILAR MD Office Visit [facility] 04/20/15 1:15pm APARNA AGUILAR MD Office Visit [facility] 04/06/15 10:45am APARNA AGUILAR MD Office Visit [facility] 03/24/15 10:30am APARNA AGUILAR MD Discharged Inpatient (obs) [facility] 03/16/15 3:50pm 5:40pm TATIANA HAWK M.D. Office Visit [facility] 03/15/15 10:45am APARNA AGUILAR MD Registered Referred [facility] 02/23/15 12:47pm APARNA AGUILAR MD Departed Clinic [facility] 02/22/15 11:13am 02/22/15 12: 02pm GIOVANI MONTANEZ MD Registered Referred [facility] 02/22/15 10:57am APARNA AGUILAR MD Office Visit [facility] 02/22/15 10:45am APARNA AGUILAR MD Office Visit [facility] 02/09/15 10:15am APARNA AGUILAR MD Departed Clinic [facility] 01/18/15 11:27am 01/18/15 2: 10pm TATIANA HAWK M.D. Office Visit [facility] 01/18/15 11:00am APARNA AGUILAR MD Discharged Inpatient (obs) [facility] 01/09/15 11:45am 5:55pm TATIANA HAWK M.D. Departed Emergency Room [facility] 12/30/14 11:10am 1:40pm CLARISA ALVES M.D. Office Visit [facility] 12/27/14 11:15am APARNA AGUILAR MD Office Visit [facility] 12/20/14 1:15pm APARNA AGUILAR MD Registered Referred [facility] 12/16/14 10:00am APARNA AGUILAR MD Office Visit [facility] 12/16/14 9:45am APARNA AGUILAR MD Office Visit [facility] 12/09/14 10:45am APARNA AGUILAR MD Departed Emergency Room [facility] 11/30/14 9:15am 11:05am JAMES WHITE M.D. Office Visit [facility] 11/22/14 9:45am APARNA AGUILAR MD Office Visit [facility] 11/05/14 11:30am APARNA AGUILAR MD Departed Emergency Room [facility] 11/03/14 11:29am 2:37pm NICHOLAS LOZOYA M.D. Departed Clinic [facility] 10/26/14 10:38am 10/26/14 11: 49am GIOVANI MONTANEZ MD Office Visit [facility] 10/26/14 10:00am APARNA AGUILAR MD Departed Emergency Room [facility] 10/21/14 10:14am 11:43am SANIA PACKER DO Office Visit [facility] 10/13/14 1:00pm APARNA AGUILAR MD Departed Clinic [facility] 10/12/14 10:45am 10/12/14 11: 11am GIOVANI MONTANEZ MD Departed Clinic [facility] 09/28/14 10:32am 09/28/14 12: 19pm GIOVANI MONTANEZ MD Office Visit [facility] 09/28/14 10:15am APARNA AGUILAR MD Office Visit [facility] 09/15/14 11:15am APARNA AGUILAR MD Office Visit [facility] 09/01/14 10:45am APARNA AGUILAR MD Departed Clinic [facility] 08/31/14 10:54am 08/31/14 11: 20am GIOVANI MONTANEZ MD Office Visit [facility] 08/18/14 10:45am APARNA AGUILAR MD Office Visit [facility] 08/10/14 10:30am APARNA AGUILAR MD Discharged Inpatient [facility] 08/04/14 4:51pm 08/07/14 5 :05pm TATIANA HAWK M.D. Registered Referred [facility] 08/03/14 12:03pm APARNA AGUILAR MD Office Visit [facility] 08/03/14 11:15am APARNA AGUILAR MD Departed Clinic [facility] 08/03/14 10:26am 08/03/14 11: 34am GIOVANI MONTANEZ MD Office Visit [facility] 07/22/14 10:45am APARNA AGUILAR MD Discharged Inpatient [facility] 07/09/14 11:21am 07/12/14 2:45pm TATIANA HAWK M.D. Registered Referred [facility] 07/08/14 10:00am APARNA AGUILAR MD Office Visit [facility] T[facility] 07/08/14 9:00am APARNA AGUILAR MD Departed Clinic [facility] 07/06/14 10:21am 07/06/14 11: 19am GIOVANI MONTANEZ MD Office Visit [facility] 07/02/14 10:30am APARNA AGUILAR MD Discharged Inpatient [facility] 06/15/14 1:11am 06/16/14 11:50am TATIANA HAWK M.D. Departed Clinic [facility] 06/14/14 11:24am 06/14/14 1: 09pm APARNA AGUILAR MD Office Visit [facility] 06/14/14 11:00am APARNA AGUILAR MD Office Visit [facility] 06/02/14 11:15am APARNA AGUILAR MD Discharged Inpatient [facility] 05/21/14 10:17pm 05/24/14 11:40am TATIANA HAWK M.D. Office Visit [facility] TURCIOSS 04/26/14 8:45am APARNA AGUILAR MD Registered Referred [facility] [facility] 04[facility]20/14 2:16pm APARNA AGUILAR MD Office Visit APARNA TURCIOSS 04/20/14 1:30pm APARNA AGUILAR MD Departed Clinic [facility] 04/20/14 11:00am 04/20/14 11: 57am GIOVANI MONTANEZ MD Office Visit APARNA R JEFF 04/14/14 11:15am APARNA AGUILAR MD Office Visit [facility]NA R JEFF 04/01/14 10:30am APARNA AGUILAR MD Departed Clinic [facility] 03/23/14 10:53am 03/23/14 12: 39pm GIOVANI MONTANEZ MD Office Visit [facility]NA R JEFF 03/18/14 10:15am APARNA AGUILAR MD Office Visit APARNA R JEFF 03/11/14 11:15am APARNA AGUILAR MD Departed Clinic [facility] 03/09/14 11:00am 03/09/14 11: 22am GIOVANI MONTANEZ MD Discharged Inpatient (obs) [facility] 03/06/14 8:25pm 2:40pm TATIANA HAWK M.D. Office Visit APARNA AGUILAR 03/05/14 11:15am APARNA AGUILAR MD Office Visit APARNA TURCIOSS 03/01/14 9:15am APARNA AGUILAR MD Registered Referred [facility] 02/26/14 10:23am APARNA AGUILAR MD Office Visit APARNA TURCIOSS 02/26/14 10:00am APARNA AGUILAR MD Departed Clinic [facility] 02/23/14 11:35am 02/23/14 12: 01pm GIOVANI MONTANEZ MD Discharged Inpatient [facility] 02/16/14 8:34pm 02/19/14 4 :30pm TATIANA HAWK M.D. Discharged Inpatient [facility] 02/12/14 2:30am 02/15/14 11:00am APARNA AGUILAR MD Departed Emergency Room [facility] 02/08/14 10:15am 1:28pm CAROLINA DUMONT M.D. Office Visit APARNA TURCIOSS 02/02/14 2:15pm APARNA AGUILAR MD Departed Clinic [facility] 02/02/14 1:31pm 02/02/14 2: 25pm GIOVANI MONTANEZ MD Office Visit APARNA R JEFF 01/21/14 10:00am APARNA AGUILAR MD Departed Clinic [facility] 01/12/14 11:43am 01/12/14 12: 38pm GIOVANI MONTANEZ MD Office Visit APARNA R JEFF 01/07/14 10:00am APARNA AGUILAR MD Departed Clinic [facility] 12/22/13 12:49pm 12/22/13 1: 23pm GIOVANI MONTANEZ MD Office Visit APARNA R JEFF 12/22/13 11:30am APARNA AGUILAR MD Office Visit APARNA R JEFF 12/10/13 11:00am APARNA AGUILAR MD Registered Recurring [facility] 12/01/13 3:00pm APARNA AGUILAR MD Departed Clinic [facility] 12/01/13 2:25pm 12/01/13 2: 50pm GIOVANI MONTANEZ MD Discharged Inpatient (obs) [facility] 11/27/13 2:30am 01/04 10:54am APARNA AGUILAR MD Office Visit APARNA R JEFF 11/26/13 10:45am APARNA AGUILAR MD Office Visit APARNA R JEFF 11/12/13 11:30am APARNA AGUILAR MD Registered Referred [facility] 11/05/13 9:28am APARNA AGUILAR MD Office Visit APARNA TURCIOSS 11/05/13 9:15am APARNA AGUILAR MD Discharged Inpatient [facility] 10/30/13 12:37pm 11/01/13 10:45am APARNA AGUILAR MD Office Visit APARNA R JEFF 10/27/13 10:45am APARNA AGUILAR MD Office Visit APARNA TURCIOSS 10/06/13 11:15am APARNA AGUILAR MD Office Visit APARNA R JEFF 09/24/13 10:00am APARNA AGUILAR MD Office Visit APARNA R JEFF 09/08/13 10:30am APARNA AGUILAR MD Office Visit APARNA R JEFF 08/25/13 10:00am APARNA AGUILAR MD Registered Referred [facility] 08/20/13 12:28pm APARNA AGUILAR MD Office Visit APARNA R JEFF 08/18/13 11:00am APARNA AGUILAR MD Departed Clinic [facility] 08/11/13 2:45pm 08/11/13 3: 19pm GIOVANI MONTANEZ MD Office Visit APARNA R JEFF 08/11/13 2:15pm APARNA AGUILAR MD Office Visit APARNA R JEFF 08/05/13 10:45am APARNA AGUILAR MD Office Visit APARNA R JEFF 07/31/13 1:00pm APARNA AGUILAR MD Registered Referred [facility] 07/31/13 11:38am APARNA AGUILAR MD Office Visit APARNA R JEFF 07/30/13 10:05am APARNA AGUILAR MD Office Visit APARNA R JEFF 07/24/13 11:30am APARNA AGUILAR MD Office Visit APARNA R JEFF 07/14/13 10:30am APARNA AGUILAR MD Office Visit APARNA R JEFF 06/30/13 10:30am APARNA AGUILAR MD Departed Clinic [facility] 06/09/13 11:37am 06/09/13 12: 47pm GIOVANI MONTANEZ MD Office Visit APARNA R JEFF 06/09/13 11:30am APARNA AGUILAR MD Registered Referred [facility] 06/02/13 11:38am APARNA AGUILAR MD Departed Clinic [facility] 06/02/13 11:35am 06/02/13 3: 56pm GIOVANI MONTANEZ MD Office Visit APARNA R JEFF 06/02/13 11:15am APARNA AGUILAR MD Discharged Inpatient [facility] 05/28/13 7:10am 05/29/13 11:30am APARNA AGUILAR MD Registered Referred [facility] 05/27/13 1:50pm APARNA AGUILAR MD Office Visit APARNA R JEFF 05/27/13 1:00pm APARNA AGUILAR MD Discharged Inpatient (obs) [facility] 05/25/13 9:20am 09/03 10:51am APARNA AGUILAR MD Office Visit APARNA R JEFF 05/19/13 11:15am APARNA AGUILAR MD Registered Referred [facility] 05/13/13 3:05pm THI CHUNG M.D. Departed Clinic [facility] 05/12/13 1:36pm 05/12/13 2: 44pm GIOVANI MONTANEZ MD Office Visit APARNA R JEFF 05/12/13 1:15pm APARNA AGUILAR MD Office Visit APARNA R JEFF 05/06/13 11:15am APARNA AGUILAR MD Office Visit APARNA R JEFF 04/22/13 11:00am APARNA AGUILAR MD Office Visit APARNA R JEFF 04/09/13 10:30am APARNA AGUILAR MD Office Visit APARNA R JEFF 03/26/13 11:00am APARNA AGUILAR MD Registered Referred [facility] 03/13/13 8:51am APARNA AGUILAR MD Office Visit APARNA R JEFF 03/12/13 10:15am APARNA AGUILAR MD Office Visit APARNA R JEFF 03/04/13 10:45am APARNA AGUILAR MD Office Visit APARNA R JEFF 02/26/13 10:30am APARNA AGUILAR MD Office Visit APARNA R JEFF 02/18/13 10:45am APARNA AGUILAR MD Recent Diagnosis
--- OUTSIDE RECORDS SUMMARY | 2016-11-10 06:26 | XMS REPORT | Continuity of Care Document ---
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 Name Role Phone APARNA AGUILAR MD Unavailable [phone] Insurance Providers Payer Name Policy Number Subscriber Name Relationship [employer] [id number] Amee Guillen 01 Self / Same As Patient For Life [id number] Amee Guillen Self / Same As Patient Problems Medical Problems Problem Onset Date Status [...] failure (CHF) Unknown Active Emphysema/COPD Unknown Active Medications Medication Dose Route Sig [...] 0.4 Mg SL NEEDED 1 Qty 10/15/12 Active Spironolactone 100 Mg PO DAILY 90 Qty [...] IM ONETIME 1 Qty 04/09/13 04/09/13 Discontinued Sulfamethoxazole-Trimethoprim 1 Tab PO TWICE A DAY 20 Qty 05/26/13 Active Lorazepam 0.5 Mg PO Every 4 hours as needed 30 Qty 05/27/13 08/25/13 Discontinued Fluticasone Propionate (Nasal) 2 [place] NA DAILY 1 Qty 05/27/13 Discontinued Levofloxacin 500 Mg PO DAILY 10 Qty 05/29/13 07/31/13 Discontinued Magnesium Oxide 400 Mg PO TWICE A DAY 180 Qty 01/07/14 Active Fluconazole 100 Mg PO WEEKLY 12 Qty 06/30/13 Active Tamsulosin Hcl 0.4 Mg PO DAILY 90 Qty 06/30/13 Active Fluticasone Propionate (Nasal) 2 [place] NA DAILY 3 Qty 3 month supply 01/04 Active Minocycline Hcl 100 Mg PO DAILY [...] Active Ondansetron 4 Mg PO DAILY 11/27/13 Active Albuterol/Ipratropium 1 Puffs IH FOUR TIMES DAILY 11/27/13 Active Sulfamethoxazole-Trimethoprim 1 Tab PO TWICE A DAY 20 Qty 11/28/13 Active Albuterol 1 Ea INH DIRECTED 25 Qty 11/30/13 Active Lorazepam 0.5 Mg PO Every 4 hours as needed 60 Qty 12/22/13 Active Menthol-Zinc Oxide 1 Un EX DAILY 1 Qty 12/22/13 Active Potassium Chloride 2 Tab PO TWICE A DAY 10 Qty 12/31/13 Active Social History Social History Problem Response Recorded Date/Time Smoking Status Former smoker 11/28/2013 10:09am Query Response Start Date Stop Date Smoking Status Former smoker Hospital Discharge Instructions No hospital discharge instructions. Plan of Care Prescriptions See Medications Section Functional Status No functional status results. Allergies, Adverse Reactions, Alerts Allergen Type Severity Reaction Status Last Updated Allopurinol Allergy Unknown Active 05/25/13 Celecoxib Allergy Unknown Active 05/25/13 Cephalosporin Allergy Unknown Active 05/25/13 Codeine Allergy Unknown Active 05/25/13 Metoclopramide Allergy Unknown Active 05/25/13 Venlafaxine Allergy Unknown Active 05/25/13 Immunizations Name Given Type Influenza Vaccine, Inactivated 04/09/13 Administered Hx Hepatitis A Vaccination No Historical Vital Signs Acute Vital Signs Vital Response Date/Time Blood Pressure 124/84 mm Hg 01/12/2014 12:18pm Pulse 01/12/2014 12:18pm Pulse Rate (adult) 109 bpm (60 - 100) 01/12/2014 12:18pm Height 5 ft 5 in 01/12/2014 12:18pm Weight 276 lb 01/12/2014 12:18pm Body Mass Index 46.02 01/12/2014 12:18pm Ambulatory Vital Signs Vital Response Date/Time Height [...] 23.0-32.0 COMMENT: 06 Alanine Aminotransferase (ALT/SGPT) November 27, 2013 12:40am 26 U/L N 5-40 Albumin November 27, 2013 12:40am 4.0 gm/dL N 3.2-5.0 Albumin/Globulin Ratio November 27, 2013 12:40am 1.2 L 1.4-2.4 Alkaline Phosphatase November 27, 2013 12:40am 65 U/L N 35-125 Ammonia August 28, 2010 8:20pm 28 mcg/dL N 19-60 COMMENTS?NEW ADMIT SERUM AMMONIA,SERUM MAG Anion Gap November 27, 2013 12:40am 14.5 H 6-13 Anisocytosis December 08, 2012 8:20am 2+ COMMENT: 04 Arterial Blood HCO3 October 30, 2013 7:25am 36.9 mEq/L H 21-27 DONE ON O2 AT 4 LPM VIA N/C..THE RESULTS WERE CALLED TO DR. AGUILAR. Arterial Blood Total CO2 October 30, 2013 7:25am 38.8 mM/L H 21-27 Arterial Blood pH October 30, 2013 7:25am 7.39 N 7.35-7.45 Aspartate Amino Transf (AST/SGOT) November 27, 2013 12:40am 24 U/L N 5-40 Atypical Lymphocytes June 25, 2012 10:20pm 1.0 % N 0-2 COMMENT: 05 B-Type Natriuretic Peptide November 27, 2013 12:40am 206 pg/mL H 15-100 BUN/Creatinine Ratio November 27, 2013 12:40am 25.0 Band Neutrophils December 08, 2012 8:20am 2.0 % N 0-7 COMMENT: 04 Basophils # (Auto) November 27, 2013 12:40am 0.0 K/uL N 0-0.2 Basophils (%) (Auto) November 27, 2013 12:40am 0.5 % N 0-1 Basophils (Manual) December 08, 2012 8:20am 0.0 % N 0-1 COMMENT: 04 Bedside Blood Urea Nitrogen June 06, 2009 8:27am 44 mg/dL H 8-25 Bedside Chloride June 06, 2009 8:27am 103 mEq/L N 98-116 Bedside Creatinine June 06, 2009 8:27am 1.6 mg/dL N 0.9-1.6 Bedside Glucose November 28, 2013 5:43am 279 mg/dL H 70-120 Bedside Hematocrit June 06, [...] 78 mmHg L 89-100 Blood Urea Nitrogen November 27, 2013 12:40am 26 mg/dL H 8-25 C-Reactive Protein June 25, 2012 10:20pm 8.0 mg/L <6.0 COMMENT: 05 Calcium Level November 27, 2013 12:40am 9.5 mg/dL N 8.2-10.6 Carbon Dioxide Level November 27, 2013 12:40am 31 mEq/L N 22-34 Chloride Level November 27, 2013 12:40am 99 mEq/L N 98-116 Cholesterol Level February 20, 2002 8:12am 130 mg/dL N 120-200 Creatine Kinase MB February 19, 2012 3:45pm 1.5 ng/mL N 0.0-6.0 COMMENT: 02 Creatinine November 27, 2013 12:40am 1.04 mg/dL N 0.9-1.6 Creatinine Clearance December 21, 1998 3:22pm 42.4 ml/min L 72-141 D-Dimer January 26, 2004 7:15am Positive ug/mL <0.20 COMMENTS? ROOM 3 D-Dimer Quantitative (PE/DVT) October 30, 2013 12:50am 775 ng/mL <230 Results <230 ng/mL yeamos a negativepredictability for DVT or PE D-Dimer Titer January 26, 2004 7:15am 0.20-0.40 ug/mL <0.20 COMMENTS? ROOM 3 Digoxin Level September 13, 1998 9:42am 2.3 ng/ml PH Eosinophils # (Auto) November 27, 2013 12:40am 0.3 K/uL N 0-0.8 Eosinophils (%) (Auto) November 27, 2013 12:40am 4.3 % N 0-7.0 Eosinophils (Manual) December 08, 2012 8:20am 0.0 % N 0-7.0 COMMENT: 04 Erythrocyte Sedimentation Rate May 29, 2010 1:10pm 7 mm/hr N 0-20 Folate August 06, 2000 6:50am See separate report ng/ml Free Thyroxine Index August 06, 2000 6:50am 5.10 N 3.6-14.0 Globulin November 27, 2013 12:40am 3.3 gm/dL H 2.0-3.0 Glomerular Filtration Rate Calc November 27, 2013 12:40am > 60.00 mL/min MULTIPLY RESULT BY 1.210 [...] - PT IN RR NOW Hematocrit November 27, 2013 12:40am 47.1 % N 40.0-54.0 Hemoglobin November 27, 2013 12:40am 14.9 g/dL N 14.0-18.0 Hepatitis B Surface Antibody [...] COMMENT: 04 Immature Granulocyte # (Auto) November 27, 2013 12:40am 0.03 K/uL N 0-0.40 Immature Granulocyte % (Auto) November 27, 2013 12:40am 0.4 % N 0-0.5 LDL Cholesterol February 20, 2002 8:12am 59 mg/dL N 25-160 Lab Scanned Report January 26, 2014 2:09pm Lab Scanned Report [id number] Lactate Dehydrogenase September 28, 1998 4:10pm 152 U/L N COMMENTS? CARDIAC ENZYMES NOW Lactic Acid Level December 08, 2012 11:10am 2.6 mmol/L H 0.5-2.2 COMMENT: may use blood in lab Lipase December 08, 2012 8:20am 20 U/L N 8-57 COMMENT: 04 Lymphocytes # (Auto) November 27, 2013 12:40am 0.4 K/uL L 0.9-5.2 Lymphocytes (%) (Auto) November 27, 2013 12:40am 4.8 % L 16.0-44.0 Lymphocytes (Manual) December 08, 2012 8:20am 4.0 % L 21.0-51.0 COMMENT: 04 Macrocytosis December 08, 2012 8:20am 2+ COMMENT: 04 Magnesium Level August 27, 2011 10:20am 1.7 mg/dL N 1.3-2.5 Mean Corpuscular Hemoglobin November 27, 2013 12:40am 29.8 pg N 26.0-33.0 Mean Corpuscular Hemoglobin Concent November 27, 2013 12:40am 31.6 g/dL N 31.0-36.0 Mean Corpuscular Volume November 27, 2013 12:40am 94.2 fL H 80.0-94.0 Mean Platelet Volume November 27, 2013 12:40am 10.2 fL N 7.0-11.0 Metamyelocytes January 22, 2008 7:03pm 2.0 % Microcytosis November 03, 2006 8:55am 1+ COMMENTS?ROOM 2 Monocytes # (Auto) November 27, 2013 12:40am 0.4 K/uL N 0.16-1.0 Monocytes (%) (Auto) November 27, 2013 12:40am 4.8 % N 2.0-9.0 Monocytes (Manual) December 08, 2012 8:20am 4.0 % N 2.0-9.0 COMMENT: 04 Myelocytes January 22, 2008 7:03pm 1.0 % Neutrophils December 08, 2012 8:20am 90.0 % H 42.0-75.0 COMMENT: 04 Neutrophils # (Auto) November 27, 2013 12:40am 6.5 K/uL N 1.9-8.0 Neutrophils (%) (Auto) November 27, 2013 12:40am 85.2 % H 42.0-75.0 Nucleated Red Blood Cells # November 27, 2013 12:40am 0.00 K/uL N 0.0-0.012 Nucleated Red Blood Cells % November 27, 2013 12:40am 0.0 /100WBC N 0-0 Ovalocytes January 22, 2006 9:55pm 1+ COMMENTS?ROOM 5 Platelet Count November 27, 2013 12:40am 114 K/uL L 130-400 Platelet Estimate December 08, 2012 8:20am Normal NORMAL COMMENT: 04 Poikilocytosis January 22, 2006 9:55pm 1+ COMMENTS?ROOM 5 Polychromasia August 10, 2006 10:30pm 1+ COMMENTS?ROOM 2 Potassium Level November 27, 2013 12:40am 4.5 mEq/L N 3.5-5.1 Prealbumin May 30, 2010 3:30pm 27.3 mg/dL N 18-34 COMMENTS?May draw with next scheduled blood draw or with available blood Procainamide Level September 13, 1998 9:42am See separate report ug/mL Prostate Specific Antigen February 20, 2002 8:12am 0.1 ng/ml N 0.0-4.0 Prothromb Time International Ratio November 09, 2011 6:20am 1.15 L 2.0-3.0 Prothrombin Time November 09, 2011 6:20am 12.1 SECONDS H 9.0-11.0 RDW Standard Deviation November 27, 2013 12:40am 48.1 fL H 35.1-43.9 Random Glucose November 27, 2013 12:40am 126 mg/dL H 65-115 Rapid Troponin I August 28, 2010 3:40pm 0.00 ng/mL N 0.00-0.03 < 0.03 ng/mL=NORMAL0.04 - 0.50 ng/mL=CARDIAC CONDITION >0.50 ng/mL=SUGGESTS AMI Red Blood Cell Morphology August 27, 2002 7:35pm Normal Red Blood Count November 27, 2013 12:40am 5.00 M/uL N 4.60-5.40 Red Cell Distribution Width November 27, 2013 12:40am 14.1 % N 11.5-14.5 Sodium Level November 27, 2013 12:40am 140 mEq/L N 133-145 Stomatocytes December 08, [...] Synovial Fluid WBC September 27, 1998 12:00am 41671.0 /uL PH Target Cells August 05, 2001 7:20am 2+ COMMENTS? SEND TO [facility] ON ARRIVAL Thyroid Stimulating Hormone (TSH) May 29, 2010 1:10pm 10.62 uIU/ml H 0.34-5.60 Thyroxine (T4) August 06, 2000 6:50am 5.8 ug/dl N 4.7-11.5 Total Bilirubin November 27, 2013 12:40am 0.9 mg/dL N 0.1-1.3 Total Creatine Kinase February 19, 2012 3:45pm 27 U/L N 10-180 COMMENT: 02 Total Protein November 27, 2013 12:40am 7.3 gm/dL N 6.0-8.4 Toxic Granulation May 28, 2001 3:18pm 1+ Triglycerides Level February 20, 2002 8:12am 113 mg/dL N 45-150 Triiodothyronine (T3) Uptake August 06, 2000 6:50am 27.8 % N 24.0- 38.9 Troponin I November 27, 2013 12:40am 0.01 ng/mL N 0.0-0.03 <0.03 ng/ mL=NORMAL0.04 - 0.50 ng/mL=CARDIAC CONDITION >0.50 ng/mL=SUGGESTS AMI Uric Acid August 07, 2005 10:33am 5.7 mg/dL N 2.5-7.0 COMMENTS? ADD TO THIS AM'S LABS Urine Amorphous Sediment December 08, 2011 11:25am Trace COMMENT: 05SOURCE: URINE, RANDOM Urine Appearance October 30, 2013 4:48pm Clear HAS SPECIMEN BEEN OBTAINED/COLLECTED? Y Urine Bacteria May 07, 2012 12:00am None /hpf NONE COMMENT: 05SOURCE: URINE, CLEAN CATCH Urine Bilirubin October 30, 2013 4:48pm Negative NEGATIVE HAS SPECIMEN BEEN OBTAINED/COLLECTED? Y Urine Casts December 08, 2011 11:25am None /lpf NONE COMMENT: 05SOURCE: URINE, RANDOM Urine Color October 30, 2013 4:48pm Yellow HAS SPECIMEN BEEN OBTAINED/ COLLECTED? Y Urine Creatinine December 21, 1998 3:22pm 1.8 mg/dL Urine Crystals December 08, 2011 11:25am None /hpf NONE COMMENT: 05SOURCE : URINE, RANDOM Urine Epithelial Cells May 07, 2012 12:00am Few /lpf COMMENT: 05SOURCE: URINE, CLEAN CATCH Urine Glucose (UA) October 30, 2013 4:48pm Negative NEGATIVE HAS SPECIMEN BEEN OBTAINED/COLLECTED? Y Urine Ketones October 30, 2013 4:48pm Negative NEGATIVE HAS SPECIMEN BEEN OBTAINED/COLLECTED? Y Urine Leukocyte Esterase October 30, 2013 4:48pm Negative NEGATIVE HAS SPECIMEN BEEN OBTAINED/COLLECTED? Y Urine Mucus December 08, 2011 11:25am None /lpf NONE COMMENT: 05SOURCE: URINE, RANDOM Urine Nitrate October 30, 2013 4:48pm Negative NEGATIVE HAS SPECIMEN BEEN OBTAINED/COLLECTED? Y Urine Occult Blood October 30, 2013 4:48pm Negative NEGATIVE HAS SPECIMEN BEEN OBTAINED/COLLECTED? Y Urine Other December 08, 2011 11:25am N COMMENT: 05SOURCE: URINE, RANDOM Urine Protein October 30, 2013 4:48pm Negative NEGATIVE HAS SPECIMEN BEEN OBTAINED/COLLECTED? Y Urine RBC May 07, 2012 12:00am None /hpf NONE COMMENT: 05SOURCE : URINE, CLEAN CATCH Urine Specific [place] October 30, 2013 4:48pm 1.015 1.005-1.030 HAS SPECIMEN BEEN OBTAINED/COLLECTED? Y Urine Total Protein 24 Hour March 12, 2001 11:36am 98.4 mg/24hrs N 30-150 Urine Total Volume December 10, 2001 11:20am 4475 mL Urine Uric Acid 24 Hour December 21, 1998 3:22pm 1118.0 MG/24 HR H 250-750 Urine Urobilinogen October 30, 2013 4:48pm 0.2 E.U./dL 0.2-1.0 HAS SPECIMEN BEEN OBTAINED/COLLECTED? Y Urine WBC May 07, 2012 12:00am None /hpf NONE COMMENT: 05SOURCE : URINE, CLEAN CATCH Urine WBC Clumps December 08, 2011 11:25am 0-1 /hpf NONE COMMENT: 05SOURCE: URINE, RANDOM Urine pH October 30, 2013 4:48pm 7.0 4.5-8.0 HAS SPECIMEN BEEN OBTAINED/ COLLECTED? Y VLDL Cholesterol February 20, 2002 8:12am 22.6 N 5-40 Vancomycin Level Trough February 21, 2012 11:30pm 27.1 mcg/mL H 5-15 10- 15 mcg/mL therapeutic trough level may be appropriate formore serious infections such as bacteremia, endocarditis, or osteomyelitis. 15-20 mcg/mL therapeutic trough level may be appropriate for nosocomial pneumonia or meningitis. Conditions such as changing renal function, additional aminoglycoside therapy, or risk for nephrotoxicity must be considered when determining the appropriate Vancomycin trough therapeutic range. Vitamin B12 Level August 06, 2000 6:50am See separate report pg/ml White Blood Count November 27, 2013 12:40am 7.6 K/uL N 5.0-10.0 Whole Blood Anion Gap June 06, 2009 8:27am 11 N 10-20 Blood Culture Blood May 28, 2013 1:42am No growth. Body Fluid Culture Synovial Fluid [...] history of procedures. Encounters Encounter Location Date/Time Office Visit APARNA AGUILAR 02/02/14 2:15pm Registered Clinic [facility] 02/02/14 1:31pm Office Visit APARNA AGUILAR 01/21/14 10:00am Registered Clinic [facility] 01/12/14 11:43am Office Visit APARNA AGUILAR 01/07/14 10:00am Registered Clinic [facility] 12/22/13 12:49pm Office Visit APARNA TURCIOSS 12/22/13 11:30am Office Visit APARNA TURCIOSS 12/10/13 11:00am Registered [facility] 12/01/13 3:00pm Registered Clinic [facility] 12/01/13 2:25pm Discharged Inpatient [facility] 11/27/13 2:30am Office Visit APARNA TURCIOSS 11/26/13 10:45am Office Visit APARNA TURCIOSS 11/12/13 11:30am Office Visit APARNA TURCIOSS 11/05/13 9:15am Discharged Inpatient [facility] 10/30/13 12:37pm Office Visit APARNA TURCIOSS 10/27/13 10:45am Office Visit APARNA TURCIOSS 10/06/13 11:15am Office Visit APARNA TURCIOSS 09/24/13 10:00am Office Visit [facility]NA TURCIOSS 09/08/13 10:30am Office Visit APARNA R JEFF 08/25/13 10:00am Office Visit [facility]NA R JEFF 08/18/13 11:00am Registered Clinic [facility] 08/11/13 2:45pm Office Visit APARNA R JEFF 08/11/13 2:15pm Office Visit [facility]NA R JEFF 08/05/13 10:45am Office Visit [facility] R JEFF 07/31/13 1:00pm Office Visit [facility] R JE[facility] 07/30/13 10:05am Office Visit [facility] R JEFF 07/24/13 11:30am Office Visit APARNA R JEFF 07/14/13 10:30am Office Visit APARNA R JEFF 06/30/13 10:30am Registered Clinic [facility] 06/09/13 11:37am Office Visit APARNA R JEFF 06/09/13 11:30am Registered Clinic [facility] 06/02/13 11:35am Office Visit APARNA R JEFF 06/02/13 11:15am Discharged Inpatient [facility] 05/28/13 7:10am Office Visit APARNA R JEFF 05/27/13 1:00pm Discharged Inpatient [facility] 05/25/13 9:20am Office Visit APARNA R JEFF 05/19/13 11:15am Registered Clinic [facility] 05/12/13 1:36pm Office Visit APARNA R JEFF 05/12/13 1:15pm Office Visit [facility]NA R JEFF 05/06/13 11:15am Office Visit [facility] R JEFF 04/22/13 11:00am Office Visit [facility] R JEFF 04/09/13 10:30am Office Visit [facility] R [facility] 03/26/13 11:00am Office Visit [facility] R [facility] 03/12/13 10:15am Office Visit [facility] R [facility] 03/04/13 10:45am Office Visit [facility] R [facility] 02/26/13 10:30am Office Visit [facility] R JEFF 02/18/13 10:45am Office Visit [facility]NA R JEFF 02/03/13 10:30am Recent Diagnosis Chronic low back pain Diabetes mellitus Congestive heart failure (CHF) Emphysema/COPD
--- OUTSIDE RECORDS SUMMARY | 2016-11-10 06:27 | XMS REPORT | Continuity of Care Document ---
Author Author Aida Benson [facility] Aida Benson [facility] Address Unknown Phone Unavailable Care Team Providers Care Panel Machine Tender Name Role Phone APARNA AGUILAR MD Unavailable [phone] Insurance Providers Guarantor Amee Anderson Address [address] [place] [address] Payer [employer] Policy Number [id number] Subscriber's Name Amee Anderson Relationship 01 Self / Same As Patient Group Number [id number] Group Name [employer] Effective Date 13 Payer s Medicare Policy Number [id number] Subscriber's Name Amee Anderson Relationship 01 Self / Same As Patient Effective Date 09 Chief Complaint and Reason for Visit Chief Complaint Dyspnea Reason for Visit Respiratory failure Bilateral pneumonia Problems Active Problems Medical Problem Onset Date [...] arteriosclerosis 12/08/2011 Acute Decubitus ulcer Unknown Acute Depression 12/18/2010 Dermatitis 12/18/2010 Chronic Diabetes mellitus 12/18/2010 Chronic Diabetic foot ulcer 05/06/2013 Chronic Disease related peripheral neuropathy 12/18/2010 Chronic Dyspnea Unknown Acute Elevated d-dimer Unknown Acute [...] Unknown Acute Inguinal pain Unknown Acute Left ankle strain Unknown Acute Left foot pain Unknown Acute [...] Acute Past Problems Medical Problem Onset Date Bilateral pneumonia Unknown Cellulitis Unknown Cellulitis of left leg Unknown Dehydration Unknown Generalized weakness Unknown Hx of congestive heart failure Unknown Left foot pain Unknown Malaise and fatigue Unknown Multiple falls Unknown Nausea & vomiting Unknown Pressure ulcer of foot Unknown Respiratory failure Unknown Medications Current Home Medications Medication Dose Units Route Directions Days Qty Instructions Start Date Albuterol (Albuterol 0.083% Std Neb Dose) 2.5 Mg/3 Ml Neb 1 Ea Inhalation As Directed as needed for Q4prn To Ease Breathing 25 Each 03/08/15 Aspirin (Aspirin Ec) 325 Mg Tab 325 Mg Oral Daily 06/27/16 Carvedilol (Coreg) 3.125 Mg Tab 3.125 Mg Oral Twice A Day for Not Specified 10/14/15 Cholecalciferol (Vitamin D) 2,000 Unit Cap 2,000 Unit Oral Daily 12/30/14 Colchicine 0.6 Mg Tab 0.6 Mg Oral Daily for Pain 90 Tablet 06/29/15 Fluticasone Propionate (Flonase 0.05% Nasal Watson) 16 Gm Inha 1-2 Watson Nasal Daily 1 Btl 05/24/15 Furosemide (Lasix 80 Mg Po) 80 Mg Tab 80 Mg Oral Daily for Not Specified 30 Tablet 09/27/15 Gabapentin 600 Mg Tab 600 Mg Oral Twice A Day 04/04/11 Ibuprofen 800 Mg Tab 800 Mg Oral [...] Cap 100 Mg Oral Daily 90 Capsule 06/13/16 Nitroglycerin 0.4 Mg Sub 0.4 Mg Sublingual As Needed for Angina Pain 1 Btl 12/14/14 Ondansetron (Zofran Tab) 4 Mg Tab 4 Mg Oral Daily as needed for Nausea 30 Tablet 06/28/16 Oxycodone Hcl (Oxycontin) 40 Mg Tab 40 Mg Oral Three Times A Day as needed for For Pain If Needed May take up to total of 6 tablets per 24 hours Oxycodone/Acetaminophen (Percocet 10/325 Mg) 1 Ea Tab 1-2 Ea Oral Every 6 Hours As Needed for Pain May take up to 8 tablets per 24 hours 09/24/12 Potassium Chloride (Potassium Chloride Er) 20 Meq Tab 20 Meq Oral Twice A Day 180 Tablet 06/13/16 Ranitidine Hcl (Zantac) 150 Mg Tab 150 Mg Oral Twice A Day for Indigestion 180 Tablet 01/31/16 Sertraline Hcl (Zoloft) 100 Mg Tab 100 Mg Oral Daily for Antidepressant 90 Tablet 06/13/16 Spironolactone (Aldactone) 100 Mg Tab 100 Mg Oral Daily for Not Specified 30 Tablet 08/16/15 Sulfamethoxazole-Trimethoprim (Bactrim Ds) 1 Tab Tab 1 Tab Oral Twice A Day for Bactinf 20 Tablet 06/29/16 Tamsulosin Hcl (Flomax) 0.4 Mg Cap 0.4 Mg Oral Daily for Dysurea 90 Capsule 07/20/15 Tramadol Hcl (Ultram) 50 Mg Tab 1-2 Tab Oral Every 6 Hours As Needed for Breakthrough Pain 100 Tablet 06/28/16 Past Home Medications Medication Directions Ordered Status [...] Propionate (Nasal) (Flonase) 0.05 % Spr, 1-2 Watson Nasal Daily for Stuffy Nose 02/12/14 Discontinued Fluticasone Propionate (Nasal) (Flonase) 0.05 % Spr, 2 Watson Nasal Daily 10/04 Discontinued Furosemide (Lasix 80 [...] 100 Mg Cap, 100 Mg Oral Daily 06/29/15 Discontinued Minocycline Hcl 100 Mg Cap, 100 [...] Mg Oral Daily as needed for Nausea 05/10 Discontinued Ondansetron (Zofran Tab) 4 Mg Tab, [...] 40 Mg Oral Daily 01/27/12 Discontinued Oxycodone/Acetaminophen (Percocet) 1 Ea Tab, 1 Tab Oral Four Times Daily 01/01 Discontinued Polyethylene Glycol (Miralax Bottle 255 Gm) 255 Gm Pow, 17 Gm Oral Every Other Day for Not Specified 12/08/15 Discontinued Polyethylene Glycol (Glycolax) 3,350 Nf Pow, 08/28/10 Discontinued Potassium Chloride (Potassium Chloride Er) 20 Meq Tab, 20 Meq Oral Twice A Day 05/05/15 Discontinued Potassium Chloride (Potassium Chloride Er) 20 [...] Tab, 100 Mg Oral Daily for Antidepressant 12/07 Discontinued Sertraline Hcl (Zoloft) 100 Mg Tab, [...] 6 Hours As Needed for Breakthrough Pain 11/09/15 Discontinued Tramadol Hcl (Ultram) 50 Mg Tab, [...] Onset Date Status Hx Alcohol Use No 06/28/2016 12:25am Not Applicable Not Applicable Hx Substance Use No 06/28/2016 12:25am Not Applicable Not Applicable Hx Tobacco Use No 06/28/2016 12:25am Not Applicable Not Applicable Hx Smoking Exposure No 06/28/2016 12:25am Not Applicable Not Applicable Smoking Status Former smoker 07/09/2016 7:52am Not Applicable Not Applicable Query Response Start Date Stop Date Smoking Status Former smoker Hospital Discharge Instructions No hospital discharge instructions. Plan of Care Discharge Date 07/09/16 11:00am Disposition 02 XFER [facility] (ACUTE) Condition at Discharge Critical Prescriptions See Medication Section Referrals APARNA AGUILAR MD Address: [address] [place] [id number] Functional Status No functional status results. Allergies, Adverse Reactions, Alerts Allergen Type Severity Reaction Status Last Updated Allopurinol ([id number]) Allergy Unknown Active 06/16/15 Codeine ([id number]) Adverse Reaction Unknown Active 06/16/15 Metoclopramide ([id number]) Allergy Unknown Active 06/16/15 Venlafaxine ([id number]) Allergy Unknown Active 06/16/15 Celecoxib ([id number]) Adverse Reaction Unknown Active 06/16/15 Cephalosporins ([id number]) Allergy Unknown Active 06/16/15 Immunizations Immunization Event Date Type Not Given Reason Dose Number Lot Number Bursar Influenza Vaccine, Inactivated 03/24/12 Administered 1 [id number] Sanofi Influenza Vaccine, Inactivated 04/09/13 Administered 2 [id number] SANOFI Pneumococcal Polysaccharide Vaccine 23 07/30/05 Administered 1 Influenza, high dose, seasonal 03/17/15 Historical 1 Query Response on File Recorded Date/Time Hx Hepatitis A Vaccination No 06/28/16 12:25am Vital Signs Acute Vital Signs Vital Response Date/Time Blood Pressure 163/85 mm Hg 07/09/2016 10:15am Blood Pressure Mean 74 mm Hg 11/27/2013 1:24pm Blood Pressure Mean 111 mm Hg 07/09/2016 10:15am Temperature (Fahrenheit) 100.8 degrees F (96.0 - 99.9) 07/09/2016 9:56am Temperature (Calculated Celsius) 38.58460 degrees C 07/09/2016 9:56am Temperature (Calculated Celsius) 36.51374 degrees C (36.4 - 37.5) 11/27/2013 1:24pm Temperature (Fahrenheit) 98.4 degrees F (96.0 - 99.9) 11/27/2013 1:24pm Temperature Source Oral 06/29/2016 10:55am Temperature Source Axillary 07/09/2016 9:56am Temp 98.4 degrees F (96.0 - 99.9) 11/27/2013 1:22pm Temperature (Calculated Celsius) 36.38301 degrees C 11/27/2013 1:22pm Pulse Pulse Rate (adult) 135 bpm (60 - 100) 07/09/2016 8:10am Pulse Rate (adult) 115 bpm (60 - 100) 11/27/2013 1:24pm Pulse Rate: ED 137 bpm 07/09/2016 10:15am Respiratory Rate 12 breaths per minute (10 - 20) 07/09/2016 10:15am Respiratory Rate 14 bpm (10 - 20) 11/27/2013 1:24pm Height (Feet) 5 ft 07/09/2016 7:50am Height (Inches) 6.0 in. 07/09/2016 7:50am Weight (Pounds) 269.6 lbs 07/09/2016 7:50am Height 5 ft 6 in 07/09/2016 7:50am Weight 269.60 lb 07/09/2016 7:50am Body Mass Index 43.5 kg/m^2 07/09/2016 7:50am Ambulatory Vital Signs Vital Response Date/Time Height 5 ft 5 in 06/13/2016 11:04am Weight 275 lbs 06/13/2016 11:04am Blood Pressure 102/62 mm Hg 06/13/2016 11:04am Body Surface Area 2.46 m2 06/13/2016 11:04am Body Mass Index 45.8 kg/m2 06/13/2016 11:04am Pulse Oximetry Pulse Oximetry 06/13/2016 11:04am Results Laboratory Results Test Name Result Units Flags Reference Collection Date/Time Result Date/ Time Comments Total Creatine Kinase 52 U/L 10-180 05/21/2014 7:40pm 05/21/2014 8: 08pm Creatine Kinase MB 4.7 ng/mL 0.0-6.0 05/21/2014 7:40pm 05/21/2014 8: 18pm Influenza Virus Type A (PCR) NEGATIVE NEGATIVE 07/09/2014 6:15am 7:45am InFluenza Virus Type A (H1N1) (PCR) NOT DETECTED NEGATIVE 07/09/2014 6 :15am 07/09/2014 7:45am Influenza Virus Type B (PCR) NEGATIVE NEGATIVE 07/09/2014 6:15am 7:45am Platelet Estimate DECREASED NORMAL 08/06/2014 5:58am 08/06/2014 7: 36am NO EVIDENCE OF PLATELET CLUMPING ON SLIDE REVIEW Lipase 15 U/L 8-57 12/30/2014 12:20pm 12/30/2014 [...] H 0.0-100.0 11/14/2015 11:18am 1:37pm Performed at: - [facility] [address], [place], [place] [id number] [employer]visor [employer] Control Operators: ROJAS Whitaker MD, Phone: [phone] Glycated Hemoglobin 6.0 % 4.0-6.0 12/08/2015 12:12pm 12/09/2015 3:53pm Hemoglobin A1c 6.6 % H 4.8-5.6 04/17/2016 11:35am 04/18/2016 10:06am Performed at: [facility] [id number] [employer] Operators: ROJSA Whitaker MD, Phone: [phone] Magnesium Level 2.2 mg/dL 1.6-2.3 04/17/2016 11:35am 04/18/2016 8:01am Performed at: [facility] [address], [place], [place] [id number] [employer] Operators: ROJAS Whitaker MD, Phone: [phone] White Blood Count 4.1 x10E3/uL 3.4-10.8 04/17/2016 [...] 04/18/2016 6:08am Performed at: [facility] - [facility] [address] [id number] [employer] Control Operators: ROJAS Whitaker MD, Phone: [phone] Glucose Level 90 mg/dL 65-99 04/17/2016 11:35am 04/18/2016 7:18am Blood Urea Nitrogen 19 mg/dL 02-1704/17/2016 11:35am 04/18/2016 7:18am Creatinine 1.02 mg/dL 0.76-1.27 04/17/2016 11:35am 04/18/2016 7:18am BUN/Creatinine Ratio 19 04-1404/17/2016 11:35am 04/18/2016 7:18am Sodium Level 145 mmol/L [...] 11:35am 7:18am Performed at: [facility] - [facility] [address] [address], [place], [place] [id number] [employer] Operators: ROJAS Whitkaer MD, Phone: [phone] EGFR IF NONAFRICN AM 72 >59 04/17/2016 11:35am 04/18/2016 7:18am Result Units: mL/min/1.73 EGFR IF AFRICN AM 83 >59 04/17/2016 11:35am 04/18/2016 7:18am Result Units: mL/min/1.73 Magnesium Level 2.0 mg/dL 1.3-2.5 05/16/2016 3:20pm 05/16/2016 3:46pm C-Reactive Protein 10.1 mg/L H <6.0 05/16/2016 3:20pm 05/16/2016 3:46pm Urine Color YELLOW 06/26/2016 6:35am 06/26/2016 7:11am Urine Appearance CLEAR 06/26/2016 6:35am 06/26/2016 7:11am Urine Glucose (UA) NEGATIVE NEGATIVE 06/26/2016 6:35am 06/26/2016 7: 11am Urine Bilirubin NEGATIVE NEGATIVE 06/26/2016 6:35am 06/26/2016 7: 11am Urine Ketones NEGATIVE NEGATIVE 06/26/2016 6:35am 06/26/2016 7:11am Urine Specific [place] 1.020 1.005-1.030 06/26/2016 6:35am 2016 7:11am Urine Occult Blood NEGATIVE NEGATIVE 06/26/2016 6:35am 06/26/2016 7: 11am Urine pH 6.0 4.5-8.0 06/26/2016 6:35am 06/26/2016 7:11am Urine Protein NEGATIVE NEGATIVE 06/26/2016 6:35am 06/26/2016 7:11am Urine Urobilinogen 0.2 E.U./dL 0.2-1.0 06/26/2016 6:35am 06/26/2016 7: 11am Urine Nitrate NEGATIVE NEGATIVE 06/26/2016 6:35am 06/26/2016 7:11am Urine Leukocyte Esterase NEGATIVE NEGATIVE 06/26/2016 6:35am 2016 7:11am Prothrombin Time 11.3 SECONDS 9.0-12.0 06/27/2016 10:30pm 06/27/2016 11 :02pm Prothromb Time International Ratio 1.04 L 2.0-3.0 THERAPEUTIC 2016 10:30pm 06/27/2016 11:02pm Activated Partial Thromboplast Time 36.5 SECONDS 24.0-37.0 06/27/2016 10 :30pm 06/27/2016 11:02pm Bedside Glucose 127 mg/dL H 70-120 06/29/2016 9:56am 06/29/2016 10:00am Notify Nurse White Blood Count 10.0 K/uL 5.0-10.0 07/09/2016 8:04am 07/09/2016 8: 52am Red Blood Count 4.37 M/uL L 4.60-5.40 07/09/2016 8:04am 07/09/2016 8: 52am Hemoglobin 12.8 g/dL L 14.0-18.0 07/09/2016 8:04am 07/09/2016 8:52am Hematocrit 44.1 % 40.0-54.0 07/09/2016 8:04am 07/09/2016 8:52am Mean Corpuscular Volume 100.9 fL H 80.0-94.0 07/09/2016 8:04am 2016 8:52am Mean Corpuscular Hemoglobin 29.3 pg 26.0-33.0 07/09/2016 8:04am 2016 8:52am Mean Corpuscular Hemoglobin Concent 29.0 g/dL L 31.0-36.0 07/09/2016 8: 04am 07/09/2016 8:52am Red Cell Distribution Width 13.9 % 11.5-14.5 07/09/2016 8:04am 2016 8:52am RDW Standard Deviation 52.0 fL H 35.1-43.9 07/09/2016 8:04am 07/09/2016 8:52am Platelet Count 175 K/uL 130-400 07/09/2016 8:07/09/2016 8:52am Mean Platelet Volume 10.3 fL 7.0-11.0 07/09/2016 8:04am 07/09/2016 8: 52am Neutrophils (%) (Auto) 77.4 % H 42.0-75.0 07/09/2016 8:07/09/2016 8 :52am Lymphocytes (%) (Auto) 13.4 % L 16.0-44.0 07/09/2016 8:0407/09/2016 8 :52am Monocytes (%) (Auto) 6.2 % 2.0-9.0 07/09/2016 8:04am 07/09/2016 8:52am Eosinophils (%) (Auto) 2.4 % 0-7.0 07/09/2016 8:0407/09/2016 8:52am Basophils (%) (Auto) 0.4 % 0-1 07/09/2016 8:0407/09/2016 8:52am Immature Granulocyte % (Auto) 0.2 % 0-0.5 07/09/2016 8:0407/09/2016 8:52am Nucleated Red Blood Cells % 0.0 /100WBC 0-0 07/09/2016 8:2016 8:52am Neutrophils # (Auto) 7.8 K/uL 1.9-8.0 07/09/2016 8:0407/09/2016 8: 52am Lymphocytes # (Auto) 1.3 K/uL 0.9-5.2 07/09/2016 8:07/09/2016 8: 52am Monocytes # (Auto) 0.6 K/uL 0.16-1.0 07/09/2016 8:04am 07/09/2016 8: 52am Eosinophils # (Auto) 0.2 K/uL 0-0.8 07/09/2016 8:0407/09/2016 8: 52am Basophils # (Auto) 0.0 K/uL 0-0.2 07/09/2016 8:07/09/2016 8:52am Immature Granulocyte # (Auto) 0.02 K/uL 0-0.40 07/09/2016 8:2016 8:52am Nucleated Red Blood Cells # 0.00 K/uL 0.0-0.012 07/09/2016 8:07/09 8:52am Random Glucose 189 mg/dL H 65-115 07/09/2016 8:0407/09/2016 9:03am Blood Urea Nitrogen 22 mg/dL 8-25 07/09/2016 8:0407/09/2016 9:03am Creatinine 1.19 mg/dL 0.9-1.6 07/09/2016 8:0407/09/2016 9:03am Glomerular Filtration Rate Calc 59.44 mL/min 07/09/2016 8:2016 9:03am MULTIPLY RESULT BY 1.210 IF THE PATIENT IS -INDONESIAN Units are mL/min/1.73 m2 > 60 Normal kidney function 30-59 Moderately decreased kidney function 15-29 Severely decreased kidney function <15 End-stage kidney failure BUN/Creatinine Ratio 18.5 07/09/2016 8:0407/09/2016 9:03am Sodium Level 137 mEq/L 133-145 07/09/2016 8:0407/09/2016 9:03am Potassium Level 4.3 mEq/L 3.5-5.1 07/09/2016 8:0407/09/2016 9:03am Chloride Level 96 mEq/L L 98-116 07/09/2016 8:0407/09/2016 9:03am Carbon Dioxide Level 32 mEq/L 22-34 07/09/2016 8:0407/09/2016 9: 03am Anion Gap 13.3 H 6-13 07/09/2016 8:07/09/2016 9:03am Calcium Level 9.1 mg/dL 8.2-10.6 07/09/2016 8:07/09/2016 9:03am Total Protein 7.9 gm/dL 6.0-8.4 07/09/2016 8:0407/09/2016 9:03am Albumin 4.1 gm/dL 3.2-5.0 07/09/2016 8:07/09/2016 9:03am Globulin 3.8 gm/dL H 2.0-3.0 07/09/2016 8:07/09/2016 9:03am Albumin/Globulin Ratio 1.1 L 1.4-2.4 07/09/2016 8:07/09/2016 9: 03am Total Bilirubin 0.6 mg/dL 0.1-1.3 07/09/2016 8:07/09/2016 9:03am Alkaline Phosphatase 117 U/L 35-125 07/09/2016 8:0407/09/2016 9: 03am Aspartate Amino Transf (AST/SGOT) 32 U/L 5-40 07/09/2016 8:042016 9:03am Alanine Aminotransferase (ALT/SGPT) 25 U/L 5-40 07/09/2016 8:0407/09 9:03am Troponin I 0.00 ng/mL 0.0-0.02 07/09/2016 8:0407/09/2016 9:27am Lactic Acid Level 2.5 mmol/L *H 0.5-1.9 07/09/2016 8:07/09/2016 9: 04am CRITICAL RESULT VERIFIED AND CALLED TO ON 07/09/16 AT 0904 BY [id number]. B-Type Natriuretic Peptide 378 pg/mL H 15-100 07/09/2016 8:2016 9:27am Arterial Blood pH 7.19 *L 7.35-7.45 07/09/2016 8:07/09/2016 8: 31am Done on ventilator with Vt of 500, f-12, 100%, 5 PEEP A/C. Blood Gas PCO2 75 mmHg H 35-45 07/09/2016 8:07/09/2016 8:31am Blood Gas PO2 78 mmHg L 89-100 07/09/2016 8:07/09/2016 8:31am Blood Gas Base Excess -1.3 mEq/L 07/09/2016 8:07/09/2016 8:31am Arterial Blood Total CO2 30.9 mM/L H 07/09/2016 8:07/09/2016 8:31am Arterial Blood HCO3 28.6 mEq/L H 07/09/2016 8:07/09/2016 8: 31am Bedside Troponin I < 0.05 ng/mL 0.00-0.05 [...] 8:13am Final Blood Culture Blood No growth. 06/27/2016 11:15pm 06/28/2016 11:20am Final Wound Culture Scrotum CORYNEBACTERIUM SPECIES 12/01/2013 2:30pm 2013 10:34am Final PSEUDOMONAS AERUGINOSA 12/01/2013 2:30pm 12/03/2013 10:34am Final Procedures No known history of procedures. Encounters Encounter Location Arrival/Admit Date Discharge/Depart Date Attending Provider Departed Emergency Room [facility] 07/09/16 7:45am 11:00am MARJ SHELDON D.O. Discharged Inpatient [facility] 06/28/16 3:52pm 06/29/16 10:55am SANIA VAUGHAN MD Departed Emergency Room [facility] 06/26/16 6:03am 8:10am JOBY OLEARY M.D. Departed Emergency Room [facility] 06/19/16 4:26pm 5:18pm RAISA SNYDER M.D. Office Visit [facility] 06/13/16 11:15am APARNA AGUILAR MD Registered Practice [facility] 06/13/16 11:15am APARNA AGUILAR MD Registered Referred Aida [facility] 05/21/16 10:53am APARNA AGUILAR MD Office Visit [facility]NA R JEFF 05/21/16 10:30am APARNA AGUILAR MD Departed Emergency Room [facility]idaeleni [facility] 05/16/16 2:39pm 6:05pm JOBY OLEARY M.D. Office Visit [facility]NA TURCIOSS 04/30/16 3:30pm APARNA AGUILAR MD Departed Emergency Room [facility] 04/29/16 10:47am 11:20am AMANDA FIELDS M.D. Registered Clinic [facility] 04/17/16 1:18pm APARNA AGUILAR MD Office Visit [facility] 04/17/16 11:15am APARNA AGUILAR MD Office Visit [facility] 03/20/16 11:30am APARNA AGUILAR MD Office Visit [facility] 03/06/16 11:30am APARNA AGUILAR MD Registered Clinic [facility]ida [facility] 02/20/16 11:41am APARNA AGUILAR MD Office Visit [facility] JE[facility] 02/20/16 11:15am APARNA AGUILAR MD Office Visit [facility] 02/09/16 10:30am HARPAL ESPOSITO PA-C Registered Practice [facility] 02/09/16 10:30am HARPAL ESPOSITO PA-C Registered Clinic [facility]ad [facility] 02/09/16 10:30am HARPAL ESPOSITO PA-C Registered Referred Aida Benson [facility] 02/03/16 12:04pm THI CHUNG M.D. Office Visit [facility] 02/03/16 11:00am THI CHUNG M.D. Registered Clinic [facility]ida [facility] 02/03/16 11:00am THI CHUNG M.D. Office Visit [facility] 01/31/16 9:45am APARNA AGUILAR MD Office Visit [facility] 01/13/16 11:15am APARNA AGUILAR MD Registered Referred Aida Benson [facility] 01/13/16 9:30am OTHER, DOCTOR Office Visit [facility]NA R JEFF 12/21/15 11:15am APARNA AGUILAR MD Office Visit [facility] 12/15/15 10:15am APARNA AGUILAR MD Registered Clinic [facility] 12/15/15 10:02am APARNA AGUILAR MD Discharged Inpatient [facility] 12/09/15 10:28am 12/10/15 1:30pm STU TERRELL M.D. Office Visit [facility] 12/01/15 10:30am APARNA AGUILAR MD Registered Referred [facility] 11/17/15 10:41am APARNA AGUILAR MD Office Visit [facility] 11/17/15 9:30am APARNA AGUILAR MD Registered Clinic [facility] 11/14/15 11:45am APARNA AGUILAR MD Office Visit [facility] 11/14/15 11:00am APARNA AGUILAR MD Registered Referred [facility] 11/09/15 11:08am APARNA AGUILAR MD Office Visit [facility] JE[facility] 11/09/15 11:00am APARNA AGUILAR MD Departed Emergency Room [facility] 11/03/15 2:52pm 4:00pm AMANDA FIELDS M.D. Office Visit [facility] 10/28/15 11:30am APARNA AGUILAR MD Office Visit [facility] 10/13/15 11:15am APARNA AGUILAR MD Departed Emergency Room [facility] 09/30/15 4:24pm 6:42pm SANIA PACKER DO Office Visit [facility] 09/08/15 11:00am APARNA AGUILAR MD Registered Referred [facility] 09/08/15 11:00am APARNA AGUILAR MD [facility]istered [facility] 08/16/15 12:00pm OTHER, DOCTOR Office Visit [facility] R JEFF 08/16/15 11:15am APARNA AGUILAR MD Office Visit [facility] JE[facility] 07/25/15 2:00pm APARNA AGUILAR MD Registered Clinic [facility] 07/06/15 1:46pm APARNA AGUILAR MD Office Visit [facility] JEFF 07/06/15 1:45pm APARNA AGUILAR MD Discharged Inpatient (obs) [facility] 06/16/15 1:19pm 4:13pm SANIA VAUGHAN MD Office Visit [facility] 06/15/15 11:30am APARNA AGUILAR MD Office Visit [facility] 05/31/15 9:45am APARNA AGUILAR MD Discharged Inpatient (obs) [facility] 05/23/15 8:13am 07/08 12:14pm SANIA VAUGHAN MD Registered Referred [facility] 05/10/15 11:13am APARNA AGUILAR MD Office Visit [facility] 05/10/15 10:45am APARNA AGUILAR MD Office Visit [facility] 04/26/15 10:15am APARNA AGUILAR MD Office Visit [facility] 04/20/15 1:15pm APARNA AGUILAR MD Office Visit [facility] 04/06/15 10:45am APARNA AGUILAR MD Office Visit [facility] 03/24/15 10:30am APARNA AGUILAR MD Discharged Inpatient (obs) [facility] 03/16/15 3:50pm 5:40pm TATIANA HAWK M.D. Office Visit [facility] 03/15/15 10:45am APARNA AGUILAR MD Registered Referred [facility] 02/23/15 12:47pm APARNA AGUILAR MD Departed Clinic [facility] 02/22/15 11:13am 02/22/15 12: 02pm GIOVANI MONTANEZ MD Registered Referred [facility] 02/22/15 10:57am APARNA AGUILAR MD Office Visit [facility] Vital[facility] TURCIOSS 02/22/15 10:45am APARNA AGUILAR MD Office Visit [facility] 02/09/15 10:15am APARNA AGUILAR MD Departed Clinic [facility] 01/18/15 11:27am 01/18/15 2: 10pm TATIANA HAWK M.D. Office Visit [facility] TURCIOSS 01/18/15 11:00am APARNA AGUILAR MD Discharged [facility] (obs) [facility] 01/09/15 11:45am 5:55pm TATIANA HAWK M.D. Departed Emergency Room [facility] 12/30/14 11:10am 1:40pm CLARISA ALVES M.D. Office Visit [facility] TURCIOSS 12/27/14 11:15am APARNA AGUILAR MD Office Visit [facility] 12/20/14 1:15pm APARNA AGUILAR MD Registered Referred [facility] 12/16/14 10:00am APARNA AGUILAR MD Office Visit [facility] R JEFF 12/16/14 9:45am APARNA AGUILAR MD Office Visit [facility] R JEFF 12/09/14 10:45am APARNA AGUILAR MD Departed [facility] 11/30/14 9:15am 11:05am JAMES WHITE M.D. Office Visit [facility] TURCIOSS 11/22/14 9:45am APARNA AGUILAR MD Office Visit [facility] 11/05/14 11:30am APARNA AGUILAR MD Departed Emergency Room [facility] 11/03/14 11:29am 2:37pm NICHOLAS LOZOYA M.D. Departed Clinic [facility] 10/26/14 10:38am 10/26/14 11: 49am GIOVANI MONTANEZ MD Office Visit APARNA R JEFF 10/26/14 10:00am APARNA AGUILAR MD Departed Emergency Room [facility] 10/21/14 10:14am 11:43am SANIA PACKER DO Office Visit APARNA TURCIOSS 10/13/14 1:00pm APARNA AGUILAR MD Departed Clinic [facility] 10/12/14 10:45am 10/12/14 11: 11am GIOVANI MONTANEZ MD Departed Clinic [facility] 09/28/14 10:32am 09/28/14 12: 19pm GIOVANI MONTANEZ MD Office Visit APARNA TURCIOSS 09/28/14 10:15am APARNA AGUILAR MD Office Visit APARNA TURCIOSS 09/15/14 11:15am APARNA AGUILAR MD Office Visit APARNA R JEFF 09/01/14 10:45am APARNA AGUILAR MD Departed Clinic [facility] 08/31/14 10:54am 08/31/14 11: 20am GIOVANI MONTANEZ MD Office Visit APARNA Burks JEFF 08/18/14 10:45am APARNA AGUILAR MD Office Visit APARNA TURCIOSS 08/10/14 10:30am APARNA AGUILAR MD Discharged Inpatient [facility] 08/04/14 4:51pm 08/07/14 5 :05pm TATIANA HAWK M.D. Registered Referred [facility] 08/03/14 12:03pm APARNA AGUILAR MD Office Visit APARNA TURCIOSS 08/03/14 11:15am APARNA AGUILAR MD Departed Clinic [facility] 08/03/14 10:26am 08/03/14 11: 34am GIOVANI MONTANEZ MD Office Visit APARNA TURCIOSS 07/22/14 10:45am APARNA AGUILAR MD Discharged Inpatient [facility] 07/09/14 11:21am 07/12/14 2:45pm TATIANA HAWK M.D. Registered Referred [facility] 07/08/14 10:00am APARNA AGUILAR MD Office Visit APARNA TURCIOSS 07/08/14 9:00am APARNA AGUILAR MD Departed Clinic [facility] 07/06/14 10:21am 07/06/14 11: 19am GIOVANI MONTANEZ MD Office Visit APARNA TURCIOSS 07/02/14 10:30am APARNA AGUILAR MD Discharged Inpatient [facility] 06/15/14 1:11am 06/16/14 11:50am TATIANA HAWK M.D. Departed Clinic [place] [facility] 06/14/14 11:24am 06/14/14 1: 09pm APARNA AGUILAR MD Office Visit APARNA TURCIOSS 06/14/14 11:00am APARNA AGUILAR MD Office Visit APARNA TURCIOSS 06/02/14 11:15am APARNA AGUILAR MD Discharged Inpatient [facility] 05/21/14 10:17pm 05/24/14 11:40am TATIANA HAWK M.D. Office Visit APARNA TURCIOSS 04/26/14 8:45am APARNA AGUILAR MD [facility] 2:16[facility] APARNA AGUILAR MD Office Visit APARNA TURCIOSS 04/20/14 1:30pm APARNA AGUILAR MD Departed Clinic [facility] 04/20/14 11:00am 04/20/14 11: 57am GIOVANI MONTANEZ MD Office Visit APARNA TURCIOSS 04/14/14 11:15am APARNA AGUILAR MD Office Visit APARNA TURCIOSS 04/01/14 10:30am APARNA AGUILAR MD Departed Clinic [facility] 03/23/14 10:53am 03/23/14 12: 39pm GIOVANI MONTANEZ MD Office Visit APARNA TURCIOSS 03/18/14 10:15am APARNA AGUILAR MD Office Visit APARNA TURCIOSS 03/11/14 11:15am APARNA AGUILAR MD Departed Clinic [facility] 03/09/14 11:00am 03/09/14 11: 22am GIOVANI MONTANEZ MD Discharged Inpatient (obs) [facility] 03/06/14 8:25pm 2:40pm TATIANA HAWK M.D. Office Visit APARNA AGUILAR 03/05/14 11:15am APARNA AGUILAR MD Office Visit APARNA AGUILAR 03/01/14 9:15am APARNA AGUILAR MD Registered Referred [facility] 02/26/14 10:23am APARNA AGUILAR MD Office Visit APARNA AGUILAR 02/26/14 10:00am APARNA AGUILAR MD Departed Clinic [facility] 02/23/14 11:35am 02/23/14 12: 01pm GIOVANI MONTANEZ MD Discharged Inpatient [facility] 02/16/14 8:34pm 02/19/14 4 :30pm TATIANA HAWK M.D. Discharged Inpatient [facility] 02/12/14 2:30am 02/15/14 11:00am APARNA AGUILAR MD Departed Emergency Room [facility] 02/08/14 10:15am 1:28pm CAROLINA DUMONT M.D. Office Visit APARNA AGUILAR 02/02/14 2:15pm APARNA AGUILAR MD Departed Clinic [facility] 02/02/14 1:31pm 02/02/14 2: 25pm GIOVANI MONTANEZ MD Office Visit APARNA AGUILAR 01/21/14 10:00am APARNA AGUILAR MD Departed Clinic [facility] 01/12/14 11:43am 01/12/14 12: 38pm GIOVANI MONTANEZ MD Office Visit APARNA AGUILAR 01/07/14 10:00am APARNA AGUILAR MD Departed Clinic [facility] 12/22/13 12:49pm 12/22/13 1: 23pm GIOVANI MONTANEZ MD Office Visit APARNA AGUILAR 12/22/13 11:30am APARNA AGUILAR MD Office Visit APARNA TURCIOSS 12/10/13 11:00am APARNA AGUILAR MD Registered Recurring [facility] 12/01/13 3:00pm APARNA AGUILAR MD Departed Clinic [facility] 12/01/13 2:25pm 12/01/13 2: 50pm GIOVANI MONTANEZ MD Discharged Inpatient (obs) [facility] 11/27/13 2:30am 01/04 10:54am APARNA AGUILAR MD Office Visit APARNA AGUILAR 11/26/13 10:45am APARNA AGUILAR MD Office Visit APARNA AGUILAR 11/12/13 11:30am APARNA AGUILAR MD Registered Referred A[facility] 11/05/13 9:28am APARNA AGUILAR MD Office Visit APARNA AGUILAR 11/05/13 9:15am APARNA AGUILAR MD Discharged Inpatient [facility] 10/30/13 12:37pm 11/01/13 10:45am APARNA AGUILAR MD Office Visit APARNA AGUILAR 10/27/13 10:45am APARNA AGUILAR MD Recent Diagnosis
--- OUTSIDE RECORDS SUMMARY | 2016-11-10 06:27 | XMS REPORT | Continuity of Care Document ---
Author [facility] Address Unknown Phone Unavailable Care Team Providers Care Leather Stitcher Name Role Phone APARNA AGUILAR MD Primary Care Physician [phone] Insurance Providers Guarantor Amee Anderson Address [address] [place] [address] Payer For Life Policy Number [id number] Subscriber's Name Amee Anderson Relationship 01 Self / Same As Patient Group Number [id number] Group Name [employer] Effective Date 13 Payer s Medicare Policy Number [id number] Subscriber's Name Amee Anderson Relationship 01 Self / Same As Patient Effective Date 09 Advance Directives Directive Response Recorded Date/Time Patient Resuscitation Status Full Code 09/30/16 9:20am Advance Directives Yes 09/30/16 9:20am Living Will Yes 09/30/16 9:20am Health Care Power of Oyster Bed Worker Yes 09/30/16 9:20am Problems Active Problems Medical Problem Onset Date [...] clavicle 06/04/2011 Chronic HCAP (healthcare-associated pneumonia) Unknown History of CHF (congestive heart failure) Unknown [...] Acute Pneumonia Unknown Acute Pneumonia Unknown Acute Pneumonia Unknown Pressure ulcer of foot Unknown Acute Respiratory acidosis Unknown Acute SYSTEMIC INFLAMMATORY RESPONSE SYNDROME (SIRS) NOS 12/08/2012 Acute Sepsis Unknown Acute Sprain of ankle 01/04/2012 Chronic Sweating fever 01/27/2012 Acute Tremors of nervous system Unknown Acute UTI (urinary tract infection) Unknown Weakness Unknown Acute Weakness Unknown 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 Unknown Acute Past Problems Medical Problem Onset Date Bilateral pneumonia Unknown Cellulitis Unknown Cellulitis of left leg Unknown Dehydration Unknown Generalized weakness Unknown HCAP (healthcare-associated pneumonia) Unknown Hx of congestive heart failure Unknown Left foot pain Unknown Malaise and fatigue Unknown Multiple falls Unknown Nausea & vomiting Unknown Pressure ulcer of foot Unknown Respiratory failure Unknown Medications Current Home Medications Medication Dose Units Route Directions Days Qty Instructions Start Date Albuterol (Albuterol 0.083% Std Neb Dose) 2.5 Mg/3 Ml Neb 1 Vial Inhalation As Needed as needed for Wheezing 1 Box 10/02/16 Aspirin (Aspirin Enteric Coated) 325 Mg Tabec 325 Mg Oral Daily for Not Specified 10/02/16 Brinzolamide-Brimonidine Tartr (Simbrinza) 1 Rosa Rosa 1 Drop Right Eye Twice A Day for Glaucoma 10/02/16 Carvedilol (Coreg) 3.125 Mg Tab 3.125 Mg Oral Twice A Day for Not Specified 10/14/15 Cholecalciferol (D 1000) 1,000 Unit Tab 2,000 Units Oral Daily for Supplement 09/30/16 Colchicine 0.6 Mg Tab 0.6 Mg Oral Daily for Pain 90 Tablet 06/29/15 Furosemide 40 Mg Tab 80 Mg Oral Daily for Not Specified 10/02/16 Gabapentin 600 Mg Tab 600 Mg Oral Twice A Day for Not Specified 04/04/11 Glucometer Blood Test Strips (Accucheck) 1 Test Strp 1 Test Finger Stick Insulin Qid After Meals for Not Specified 09/30/16 Ibuprofen 800 Mg Tab 800 Mg Oral Three Times A Day for Pain 10/02 Insulin Aspart, Human Analog (Insulin Novolog) 100 Unit/1 Ml Inj 1-4 Unit Subcutaneously Three Times Daily Before Meals for Not Specified 10/02 Insulin Glargine (Insulin Lantus) 100 Unit/Ml Inj 20 Unit Subcutaneously Bedtime for Not Specified 10/02/16 Ipratropium-Albuterol (Combivent Respimat) Respimat Aer 1 Puffs Inhalation Via Inhaler Four Times Daily for Not Specified 10/02/16 Levofloxacin (Levaquin) 500 Mg Tab 500 Mg Oral Daily for Bactinf 10 Tablet 10/08/16 Levothyroxine Sodium (Synthroid) 75 Mcg Tab 1 Tab Oral Daily for Thyroid 90 Tablet 12/01/15 Lorazepam (Ativan) 0.5 Mg Tab 0.5 Mg Oral Every 4 Hours As Needed for Anxiety 60 Tablet 01/13/16 Magnesium Oxide (Magnesium) 400 Mg Tab 400 Mg Oral Bid Evening & Bedtim for Not Specified 10/02/16 Minocycline Hcl 100 Mg Cap 100 Mg Oral Daily for Not Specified Nitroglycerin 0.4 Mg Sub 0.4 Mg As Needed for Chest Pain Ondansetron (Ondansetron Hcl) 4 Mg Tab 1 Tablet Oral Daily As Needed for Nausea And/Or Vomiting 10/02/16 Oxycodone Hcl (Oxycontin) 40 Mg Tab 40 Mg Oral Three Times A Day for Pain 10/02/16 Oxycodone Hcl (Oxycontin) 40 Mg Tab 40 Mg Oral Tid Prn as needed for In Addition To Scheduled 10/02/16 Oxycodone W/ Acetaminophen (Endocet) 10MG/325MG Tab 1 Tab Oral Four Times Daily for Pain 10/02/16 Oxycodone W/ Acetaminophen (Endocet) 10MG/325MG Tab 1 Tab Oral Four Times Daily as needed for Breakthrough Pain 10/02/16 Polyethylene Glycol (Glycolax) 3,350 Nf Pow 1 Tbs Oral Every Other Day as needed for Constipation/Bowels 10/02/16 Potassium Chloride Microencaps (Potassium Chloride Cr) 20 Meq Tab 20 Meq Oral Twice A Day for Not Specified 10/02/16 Ranitidine Hcl 150 Mg Tab 150 Mg Oral Twice A Day for Not Specified 20 Tablet Take while taking Ibuprofen. 10/02/16 Sertraline Hcl (Zoloft) 100 Mg Tab 100 Mg Oral Daily for Antidepressant 90 Tablet 06/13/16 Spironolactone 50 Mg Tab 100 Mg Oral Noon for Not Specified 09/30 Tamsulosin Hcl 0.4 Mg Cap 0.4 Mg Oral Daily for Not Specified 05/10 Tramadol Hcl 50 Mg Tab 1-2 Tab Oral Four Times Daily as needed for Pain 10/02/16 Past Home Medications Medication Directions Ordered Status Albuterol (Albuterol 0.083% Std Neb Dose) 2.5 Mg/3 Ml Neb, 1 Ea Inhalation As Directed as needed for Q4prn To Ease Breathing 03/08/15 Discontinued Albuterol (Albuterol 0.083% Std Neb Dose) 2.5 [...] Oral Twice A Day 03/04/13 Discontinued Aspirin (Aspirin Ec) 325 Mg Tab, 325 Mg Oral Daily 06/27/16 Discontinued Aspirin (Aspir-81) 81 Mg Tab, 81 [...] Tab Oral Twice A Day 08/28/10 Discontinued Cholecalciferol (Vitamin D) 2,000 Unit Cap, 2000 Unit Oral Daily 12/30/14 Discontinued Ciprofloxacin Hcl (Cipro) 500 Mg Tab, [...] Mg Oral Daily 06/03/12 Discontinued Fluticasone Propionate (Flonase 0.05% Nasal [place]) 16 Gm Inha, 1-2 [place] Nasal Daily 05/24/15 Discontinued Fluticasone Propionate (Nasal) (Flonase) 0.05 % Spr, 1-2 [place] Nasal Daily for Stuffy Nose 02/12/14 Discontinued Fluticasone Propionate (Nasal) (Flonase) 0.05 % Spr, 2 [place] Nasal Daily 10/04 Discontinued Furosemide (Lasix 80 Mg Po) 80 Mg Tab, 80 Mg Oral Daily for Not Specified 11/06 Discontinued Furosemide (Lasix 80 Mg Po) 80 [...] as needed for Muscle Pain & Inflammation 04/06/15 Discontinued Ibuprofen 800 Mg Tab, 800 Mg Oral Three Times A Day as needed for Muscle Pain & Inflammation 07/09/14 Discontinued Influenza Virus Vaccine (Fluzone) 0.5 Ml Inj, 0.5 Ml Intramuscular Onetime Discontinued Influenza Virus Vaccine (Fluzone) 0.5 Ml Inj, 0.5 Ml Intramuscular Onetime Discontinued Insulin Glargine (Lantus Solostar) Solostar Inj, 20 Unit Subcutaneously Bedtime for Diabetes 09/08/15 Discontinued Insulin Glargine (Lantus Solostar) Solostar Inj, [...] 5 Units Subcutaneously Before Meals 08/28/10 Discontinued Ipratropium-Albuterol (Combivent Respimat) Respimat Aer, 1 Puffs Oral Four Times Daily 07/20/15 Discontinued Isodril , 10 Mg Oral Twice [...] Oral Twice A Day for Nutrient Replacement 03/06/16 Discontinued Magnesium Oxide (Mag-Ox 400) 400 Mg [...] 100 Mg Cap, 100 Mg Oral Daily 06/13/16 Discontinued Minocycline Hcl 100 Mg Cap, 100 [...] Mg Oral Daily as needed for Nausea 06/28 Discontinued Ondansetron (Zofran Tab) 4 Mg Tab, [...] Mg Oral Daily 08/17/11 Discontinued Oxycodone Hcl (Oxycodone Hcl Cr) 20 Mg Tab, 20 Mg Oral Four Times Daily for Pain 09/30/16 Discontinued Oxycodone Hcl (Oxycontin) 40 Mg Tab, 40 Mg Oral Three Times A Day as needed for For Pain If Needed 07/09/14 Discontinued Oxycodone Hcl (Oxycontin) 40 Mg Tab, 40 Mg Oral Daily 01/27/12 Discontinued Oxycodone/Acetaminophen (Percocet 10/325 Mg) 1 Ea Tab, 1-2 Ea Oral Every 6 Hours As Needed for Pain 09/24/12 Discontinued Oxycodone/Acetaminophen (Percocet) 1 Ea Tab, 1 Tab Oral Four Times Daily 01/01 Discontinued Polyethylene Glycol (Miralax Bottle 255 Gm) 255 Gm Pow, 17 Gm Oral Every Other Day for Not Specified 12/08/15 Discontinued Polyethylene Glycol (Glycolax) 3,350 Nf Pow, 08/28/10 Discontinued Potassium Chloride (Potassium Chloride Er) 20 Meq Tab, 20 Meq Oral Twice A Day 06/13/16 Discontinued Potassium Chloride (Potassium Chloride Er) 20 [...] Mg Oral Twice A Day for Indigestion 01/31/16 Discontinued Ranitidine Hcl (Zantac) 150 Mg Tab, [...] Tab, 1 Tab Oral Twice A Day for Bactinf 06/29/16 Discontinued Sulfamethoxazole-Trimethoprim (Bactrim Ds) 1 Tab Tab, [...] Cap, 0.4 Mg Oral Daily for Dysurea 07/20/15 Discontinued Tamsulosin Hcl (Flomax) 0.4 Mg Cap, [...] 6 Hours As Needed for Breakthrough Pain 06/28/16 Discontinued Tramadol Hcl (Ultram) 50 Mg Tab, [...] Onset Date Status Hx Alcohol Use No 09/30/2016 10:37am Not Applicable Not Applicable Hx Substance Use No 09/30/2016 10:37am Not Applicable Not Applicable Hx Tobacco Use No 09/30/2016 10:37am Not Applicable Not Applicable Hx Smoking Exposure No 09/30/2016 10:37am Not Applicable Not Applicable Smoking Status Former smoker 09/30/2016 9:20am Not Applicable Not Applicable Query Response Start Date Stop Date Smoking Status Former smoker Hospital Discharge Instructions Discharge Instructions Provider Instructions Dismiss Date: Oct 08, 2016 Dismiss: [facility] Diet: As Tolerated Activity: As Tolerated Discharge Instructions D/C to [facility]. Follow up with PCP in 1-2 weeks. Plan of Care Discharge Date 10/08/16 1:38pm Disposition 03 XFER SNF Prescriptions See Medication Section Care Plan and Goals See Discharge Instructions Section Functional Status Query Response Date Recorded FUNCTIONAL ACTIVITIES: Supine to Sit Ability 2/7 (Pt does 25% - 49%) October 05, 2016 8:17am Overall Activities Daily Living Ability/Staff Support Extens/Two+ assist September 30, 2016 9:20am Toileting Ability/Staff Support Activity did not occur October 06, 2016 11:00pm Oral Care Ability/Staff Support Total/One person assist October 08, 2016 8:57am Upper Body Dressing Ability/Staff Support Extens/One person assist October 06, 2016 11:00pm Lower Body Dressing Ability/Staff Support Extens/One person assist October 06, 2016 11:00pm Bed Mobility Ability (general) 2/7 Maximal Assistance October 02, 2016 3:11pm Bed Mobility Movement Direction Rolling Left October 02, 2016 3:11pm Bed Mobility Rolling/Sidelying Ability 2/7 Maximal Assistance October 02, 2016 3:11pm Bed Mobility Scooting to Side to Side Ability 2/7 Maximal Assistance October 02, 2016 3:11pm Bed Mobility Scooting Up & Down Ablility 2/7 Maximal Assistance October 02, 2016 3:11pm Bed Mobility Supine to Sit Ability 2/7 Maximal Assistance October 02, 2016 11:59am Bed Transfer Ability 1/7 Total Assistance October 02, 2016 11:59am Wheelchair Transfer Ability 1/7 Total Assistance October 02, 2016 11:59am Memory Description Short term intact tag stringer intact October 07, 2016 7:50pm Cognitive Skills Independent October 07, 2016 7:50pm Making self understood Understood October 07, 2016 7:50pm Indicators of depression Withdraws from activity October 06, 2016 7:52pm Allergies, Adverse Reactions, Alerts Allergen Type Severity Reaction Status Last Updated Allopurinol ([id number]) Allergy Unknown SKIN PEELS OFF Active 10/02/16 Codeine ([id number]) Adverse Reaction Unknown Active 06/16/15 Metoclopramide ([id number]) Adverse Reaction Intermediate EXCESSIVE DROWSINESS & HALLUCINATIONS Active 10/02/16 Metolazone ([id number]) Adverse Reaction Unknown DEPLETES K & MG CAUSING HOSPITALIZATION Active 10/02/16 Metoprolol ([id number]) Adverse Reaction Intermediate EXCESSIVE MUSCLE MOVEMENT Active 10/02/16 Venlafaxine ([id number]) Adverse Reaction Intermediate HEAD PRESSURE, INSIDE SHAKING Active 10/02/16 Celecoxib ([id number]) Adverse Reaction Intermediate BLISTERS Active 05/10 Cephalosporins ([id number]) Allergy Intermediate HIVES Active 10/02/16 Paper tape Adverse Reaction Intermediate SKIN TURNS RED & PULLS OFF LEAVING SORES Active 10/02/16 Immunizations Immunization Event Date Type Not Given Reason Dose Number Lot Number [employer] Helper Influenza Vaccine, Inactivated 03/24/12 Administered 1 [id number] Sanofi Influenza Vaccine, Inactivated 04/09/13 Administered 2 [id number] SANOFI Pneumococcal Polysaccharide Vaccine 23 07/30/05 Administered 1 Influenza, high dose, seasonal 03/17/15 Historical 1 Query Response on File Recorded Date/Time Hx Hepatitis A Vaccination No 09/30/16 10:37am Pneumonia Vaccine Received Yes 09/30/16 9:20am Had a Tetanus Toxoid Vaccination less than 10yrs ago Yes 09/30/16 9:20am Vital Signs Acute Vital Signs Vital Response Date/Time Blood Pressure 98/67 mm Hg 10/08/2016 12:31pm Blood Pressure Mean 77 mm Hg 10/08/2016 12:31pm Temperature (Fahrenheit) 98.4 degrees F (96.0 - 99.9) 10/08/2016 12:31pm Temperature (Calculated Celsius) 36.09896 degrees C 10/08/2016 12:31pm Temperature Source Oral 10/08/2016 12:31pm Temperature Source Axillary 09/30/2016 4:33am Pulse Pulse Rate (adult) 89 bpm (60 - 100) 10/08/2016 1:39pm Pulse Rate: ED 78 bpm 09/30/2016 7:33am Respiratory Rate 18 breaths per minute (10 - 20) 10/08/2016 12:31pm Height (Feet) 5 ft 09/30/2016 9:11am Height (Inches) 6.0 in. 09/30/2016 9:11am Weight (Pounds) 241.7 lbs 10/08/2016 4:40am Height 5 ft 6 in 09/30/2016 4:33am Weight 241.70 lb 10/08/2016 4:40am Body Mass Index 39.0 kg/m^2 10/08/2016 4:40am Ambulatory Vital Signs Vital Response Date/Time Height [...] 15 U/L 8-57 12/30/2014 12:20pm 12/30/2014 12:44pm Urine Casts 5-10 HYALINE /lpf NONE 05/23/2015 6:27am 05/23/2015 9:47am Bedside Glucose 123 mg/dL H 70-120 05/23/2015 5:29pm 07/02/2015 3:38pm B-Type Natriuretic Peptide 315.2 pg/mL H 0.0-100.0 11/14/2015 11:18am 1:37pm Performed at: [facility] [address], [place], [place] [id number] Highway Technician: ROJAS Whitaker MD, Phone: [phone] Glycated Hemoglobin 6.0 % 4.0-6.0 12/08/2015 12:12pm 12/09/2015 3:53pm Hemoglobin A1c 6.6 % H 4.8-5.6 04/17/2016 11:35am 04/18/2016 10:06am Performed at: [address], [place], [place] [id number] Highway Technician: ROJAS Whitaker MD, Phone: [phone] Magnesium Level 2.2 mg/dL 1.6-2.3 04/17/2016 11:35am 04/18/2016 8:01am Performed at: [address], [place], [place] [id number] Highway Technician: ROJAS Whitaker MD, Phone: [phone] White Blood Count 4.1 x10E3/uL 3.4-10.8 04/17/2016 [...] 04/17/2016 11: 35am 04/18/2016 6:08am Performed at: - [facility] [id number] Highway Technician: ROJAS Whitaker MD, Phone: [phone] Glucose Level 90 mg/dL 65-99 04/17/2016 11:35am 04/18/2016 7:18am Blood Urea Nitrogen 19 mg/dL 804/17/2016 11:35am 04/18/2016 7:18am Creatinine 1.02 mg/dL 0.76-1.27 [...] IU/L 0-44 04/17/2016 11:35am 7:18am Performed at: - [facility] [id number] Highway Technician: ROJAS Whitaker MD, Phone: [phone] EGFR IF NONAFRICN AM 72 >59 04/17/2016 11:35am 04/18/2016 7:18am Result Units: mL/min/1.73 EGFR IF AFRICN AM 83 >59 04/17/2016 11:35am 04/18/2016 7:18am Result Units: mL/min/1.73 C-Reactive Protein 10.1 mg/L H <6.0 05/16/2016 3:20pm 05/16/2016 3:46pm Prothrombin Time 11.3 SECONDS 9.0-12.0 06/27/2016 10:30pm 06/27/2016 11 :02pm Prothromb Time International Ratio 1.04 L 2.0-3.0 THERAPEUTIC 2016 10:30pm 06/27/2016 11:02pm Activated Partial Thromboplast Time 36.5 SECONDS 24.0-37.0 06/27/2016 10 :30pm 06/27/2016 11:02pm Magnesium Level 2.0 mg/dL 1.3-2.5 07/09/2016 8:35am 07/09/2016 11:12am White Blood Count 6.7 K/uL 5.0-10.0 10/08/2016 5:10/08/2016 6: 21am Red Blood Count 4.72 M/uL 4.60-5.40 10/08/2016 5:10/08/2016 6: 21am Hemoglobin 13.8 g/dL L 14.0-18.0 10/08/2016 5:10/08/2016 6:21am Hematocrit 44.0 % 40.0-54.0 10/08/2016 5:10/08/2016 6:21am Mean Corpuscular Volume 93.2 fL 80.0-94.0 10/08/2016 5:10/08/2016 6:21am Mean Corpuscular Hemoglobin 29.2 pg 26.0-33.0 10/08/2016 5:2016 6:21am Mean Corpuscular Hemoglobin Concent 31.4 g/dL 31.0-36.0 10/08/2016 5: 10/08/2016 6:21am Red Cell Distribution Width 15.2 % H 11.5-14.5 10/08/2016 5:2016 6:21am RDW Standard Deviation 51.5 fL H 35.1-43.9 10/08/2016 5:10/08/2016 6:21am Platelet Count 189 K/uL 130-400 10/08/2016 5:10/08/2016 6:21am Mean Platelet Volume 9.9 fL 7.0-11.0 10/08/2016 5:10/08/2016 6: 21am Neutrophils (%) (Auto) 69.5 % 42.0-75.0 10/08/2016 5:10/08/2016 6: 21am Lymphocytes (%) (Auto) 15.0 % L 16.0-44.0 10/08/2016 5:10/08/2016 6 :21am Monocytes (%) (Auto) 11.4 % H 2.0-9.0 10/08/2016 5:10/08/2016 6: 21am Eosinophils (%) (Auto) 2.8 % 0-7.0 10/08/2016 5:10/08/2016 6:21am Basophils (%) (Auto) 0.7 % 0-1 10/08/2016 5:10/08/2016 6:21am Immature Granulocyte % (Auto) 0.6 % H 0-0.5 10/08/2016 5:2016 6:21am Nucleated Red Blood Cells % 0.0 /100WBC 0-0 10/08/2016 5:2016 6:21am Neutrophils # (Auto) 4.7 K/uL 1.9-8.0 10/08/2016 5:10/08/2016 6: 21am Lymphocytes # (Auto) 1.0 K/uL 0.9-5.2 10/08/2016 5:10/08/2016 6: 21am Monocytes # (Auto) 0.8 K/uL 0.16-1.0 10/08/2016 5:10/08/2016 6: 21am Eosinophils # (Auto) 0.2 K/uL 0-0.8 10/08/2016 5:10/08/2016 6: 21am Basophils # (Auto) 0.1 K/uL 0-0.2 10/08/2016 5:10/08/2016 6:21am Immature Granulocyte # (Auto) 0.04 K/uL 0-0.40 10/08/2016 5:2016 6:21am Nucleated Red Blood Cells # 0.00 K/uL 0.0-0.012 10/08/2016 5:10/08 6:21am D-Dimer Quantitative (PE/DVT) 829 ng/mL H 0-230 09/30/2016 4:52am 2016 5:46am Results <230 ng/mL yeild a negative predictability for DVT or PE Urine Color YELLOW 09/30/2016 9:00am 09/30/2016 9:04am Urine Appearance SL CLOUDY 09/30/2016 9:00am 09/30/2016 9:04am Urine Glucose (UA) NEGATIVE NEGATIVE 09/30/2016 9:00am 09/30/2016 9: 04am Urine Bilirubin NEGATIVE NEGATIVE 09/30/2016 9:00am 09/30/2016 9: 04am Urine Ketones NEGATIVE NEGATIVE 09/30/2016 9:00am 09/30/2016 9:04am Urine Specific [place] <=1.005 1.005-1.030 09/30/2016 9:00am 2016 9:04am Urine Occult Blood 1+ H NEGATIVE 09/30/2016 9:00am 09/30/2016 9:04am Urine pH 6.5 4.5-8.0 09/30/2016 9:00am 09/30/2016 9:04am Urine Protein NEGATIVE NEGATIVE 09/30/2016 9:00am 09/30/2016 9:04am Urine Urobilinogen 0.2 E.U./dL 0.2-1.0 09/30/2016 9:00am 09/30/2016 9: 04am Urine Nitrate NEGATIVE NEGATIVE 09/30/2016 9:00am 09/30/2016 9:04am Urine Leukocyte Esterase 3+ H NEGATIVE 09/30/2016 9:00am 09/30/2016 9: 04am Urine RBC 3-5 /hpf H NONE 09/30/2016 9:00am 09/30/2016 9:36am Urine WBC 50-75 /hpf H NONE 09/30/2016 9:00am 09/30/2016 9:36am THIS SPECIMEN MEETS MEDICAL STAFF CRITERIA FOR A URINE CULTURE. A CULTURE HAS BEEN SET. Urine WBC Clumps 1-3 /hpf NONE 09/30/2016 9:00am 09/30/2016 9:36am Urine Epithelial Cells NONE /lpf 09/30/2016 9:00am 09/30/2016 9:36am Urine Bacteria 1+ /hpf H NONE 09/30/2016 9:0009/30/2016 9:36am Random Glucose 121 mg/dL H 65-115 10/08/2016 5:2410/08/2016 6:34am Bedside Glucose 186 mg/dL H 70-120 10/08/2016 10:0310/08/2016 2:04pm Notify Nurse Blood Urea Nitrogen 26 mg/dL H 8-25 10/08/2016 5:10/08/2016 6:34am Creatinine 1.03 mg/dL 0.9-1.6 10/08/2016 5:10/08/2016 6:34am Glomerular Filtration Rate Calc 70.21 mL/min 10/08/2016 5:2016 6:34am MULTIPLY RESULT BY 1.210 IF THE PATIENT IS -SAMOAN Units are mL/min/1.73 m2 > 60 Normal kidney function 30-59 Moderately decreased kidney function 15-29 Severely decreased kidney function <15 End-stage kidney failure BUN/Creatinine Ratio 25.2 10/08/2016 5:10/08/2016 6:34am Sodium Level 140 mEq/L 133-145 10/08/2016 5:10/08/2016 6:34am Potassium Level 4.1 mEq/L 3.5-5.1 10/08/2016 5:10/08/2016 6:34am Chloride Level 100 mEq/L 98-116 10/08/2016 5:10/08/2016 6:34am Carbon Dioxide Level 31 mEq/L 22-34 10/08/2016 5:10/08/2016 6: 34am Anion Gap 13.1 H 6-13 10/08/2016 5:10/08/2016 6:34am Calcium Level 9.8 mg/dL 8.2-10.6 10/08/2016 5:10/08/2016 6:34am Total Protein 7.3 gm/dL 6.0-8.4 09/30/2016 4:5209/30/2016 5:40am Albumin 3.0 gm/dL L 3.2-5.0 09/30/2016 4:5209/30/2016 5:40am Globulin 4.3 gm/dL H 2.0-3.0 09/30/2016 4:5209/30/2016 5:40am Albumin/Globulin Ratio 0.7 L 1.4-2.4 09/30/2016 4:09/30/2016 5: 40am Total Bilirubin 0.9 mg/dL 0.1-1.3 09/30/2016 4:09/30/2016 5:40am Alkaline Phosphatase 69 U/L 35-125 09/30/2016 4:09/30/2016 5:40am Aspartate Amino Transf (AST/SGOT) 23 U/L 5-40 09/30/2016 4:2016 5:40am Alanine Aminotransferase (ALT/SGPT) 20 U/L 5-40 09/30/2016 4:09/30 5:40am Troponin I 0.01 ng/mL 0.0-0.02 09/30/2016 4:09/30/2016 5:45am Lactic Acid Level 0.8 mmol/L 0.5-1.9 09/30/2016 4:09/30/2016 5: 40am Vancomycin Level Trough 12.5 mcg/mL 5-15 10/03/2016 8:08am 10/03/2016 8 :41am 10-15 mcg/mL therapeutic trough level may be appropriate for more serious infections such as bacteremia, endocarditis, or osteomyelitis. 15-20 mcg/mL therapeutic trough level may be appropriate for nosocomial pneumonia or meningitis. Conditions such as changing renal function, additional aminoglycoside therapy, or risk for nephrotoxicity must be considered when determining the appropriate Vancomycin trough therapeutic range. Thyroid Stimulating Hormone (TSH) 3.75 uIU/ml 0.34-5.60 09/30/2016 4: 09/30/2016 9:17am Influenza Virus Type A (PCR) NEGATIVE NEGATIVE 09/30/2016 5:2002/2017 6:39am Influenza Virus Type B (PCR) NEGATIVE NEGATIVE 09/30/2016 5:2002/2017 6:39am B-Type Natriuretic Peptide 451 pg/mL H 15-100 09/30/2016 4:522016 6:19am Prealbumin 18.1 mg/dL 18-34 10/08/2016 5:24am 10/08/2016 6:34am Arterial Blood pH 7.37 7.35-7.45 09/30/2016 5:3109/30/2016 6:00am Blood Gas PCO2 54 mmHg H 35-45 09/30/2016 5:31am 09/30/2016 6:00am Blood Gas PO2 68 mmHg L 89-100 09/30/2016 5:31am 09/30/2016 6:00am Blood Gas Base Excess 4.7 mEq/L 09/30/2016 5:31am 09/30/2016 6:00am Arterial Blood Total CO2 32.9 mM/L H 09/30/2016 5:31am 09/30/2016 6:00am Arterial Blood HCO3 31.2 mEq/L H 2109/30/2016 5:31am 09/30/2016 6: 00am Neutrophils 46.0 % 42.0-75.0 02/14/2014 6:05am 02/14/2014 7:18am Lymphocytes (Manual) 26.0 % 21.0-51.0 02/14/2014 6:05am 02/14/2014 7: 18am Monocytes (Manual) 16.0 % H 2.0-9.0 02/14/2014 6:05am 02/14/2014 7:18am Eosinophils (Manual) 12.0 % H 0-7.0 02/14/2014 6:05am 02/14/2014 7:18am Basophils (Manual) 0.0 % 0-1 02/14/2014 6:05am 02/14/2014 7:18am Microbiology Results Procedure Source Organism/Result Collection Date/Time Result Date/Time Result Status Sputum Culture Sputum, Expectorated Sputum PROTEUS MIRABILIS 05/24/2015 2: 30am 05/26/2015 8:13am Final Blood Culture Blood No growth. 09/30/2016 10:31am 09/30/2016 10:35pm Final Urine Culture Urine,Clean Catch PSEUDOMONAS AERUGINOSA 09/30/2016 9:00am 10/02/2016 9:40am Final Procedures Procedure Status Date Provider(s) THER/PROPH/DIAG IV INF INIT Completed 06/14/14 APARNA AGUILAR MD THER/PROPH/DIAG INJ IV PUSH Completed 10/21/14 SANIA PACKER DO THER/PROPH/DIAG IV INF INIT Completed 11/03/14 NICHOLAS LOZOYA M.D. [place]/PRO/DX INJ NEW DRUG ADDON Completed 11/03/14 NICHOLAS LOZOYA M.D. TX/PRO/DX INJ NEW DRUG ADDON Completed 11/03/14 NICHOLAS LOZOYA M.D. HYDRATION IV INFUSION INIT Completed 11/30/14 JAMES WHITE M.D. THER/PROPH/DIAG IV INF INIT Completed 01/09/15 AMANDA FIELDS M.D. TX/PROPH/DG ADDL SEQ IV INF Completed 01/09/15 TATIANA HAWK M.D. THER/PROPH/DIAG IV INF ADDON Completed 01/09/15 TATIANA HAWK M.D. THER/PROPH/DIAG IV INF ADDON Completed 01/09/15 TATIANA HAWK M.D. THER/PROPH/DIAG IV INF ADDON Completed 01/09/15 TATIANA HAWK M.D. THER/PROPH/DIAG IV INF ADDON Completed 01/09/15 TATIANA HAWK M.D. THER/PROPH/DIAG IV INF INIT Completed 01/18/15 TATIANA HAWK M.D. THER/PROPH/DIAG IV INF ADDON Completed 01/18/15 TATIANA HAWK M.D. THER/PROPH/DIAG IV INF INIT Completed 03/16/15 JOBY OLEARY M.D. TX/PROPH/DG ADDL SEQ IV INF Completed 03/16/15 TATIANA HAWK M.D. THER/PROPH/DIAG IV INF ADDON Completed 03/16/15 TATIANA HAWK M.D. THER/PROPH/DIAG IV INF ADDON Completed 03/16/15 TATIANA HAWK M.D. THER/PROPH/DIAG IV INF ADDON Completed 03/16/15 TATIANA HAWK M.D. THER/PROPH/DIAG IV INF ADDON Completed 03/16/15 TATIANA HAWK M.D. THER/PROPH/DIAG IV INF ADDON Completed 03/16/15 TATIANA HAWK M.D. THER/PROPH/DIAG IV INF INIT Completed 05/23/15 JOBY OLEARY M.D. THER/PROPH/DIAG IV INF ADDON Completed 05/23/15 SANIA VAUGHAN MD THER/PROPH/DIAG IV INF ADDON Completed 05/23/15 SANIA VAUGHAN MD THER/PROPH/DIAG IV INF ADDON Completed 05/23/15 ALEXUS,SANAI Morris MD THER/PROPH/DIAG IV INF INIT Completed 06/16/15 NICHOLAS LOZOYA M.D. THER/PROPH/DIAG IV INF ADDON Completed 06/16/15 NICHOLAS LOZOYA M.D. THER/PROPH/DIAG IV INF ADDON Completed 06/16/15 NICHOLAS LOZOYA M.D. THER/PROPH/DIAG IV INF ADDON Completed 06/16/15 NICHOLAS LOZOYA M.D. THER/PROPH/DIAG IV INF ADDON Completed 06/16/15 ALEXUS,SANIA Morris MD THER/PROPH/DIAG IV INF ADDON Completed 06/16/15 ALEXUS,SANIA Morris MD THER/PROPH/DIAG IV INF ADDON Completed 06/16/15 ALEXUS,SANIA Morris MD THER/PROPH/DIAG IV INF ADDON Completed 06/16/15 ALEXUS,SANIA Morris MD THER/PROPH/DIAG IV INF ADDON Completed 06/16/15 ALEXUS,SANIA Morris MD TX/PRO/DX INJ NEW DRUG ADDON Completed 06/16/15 NICHOLAS LOZOYA M.D. HYDRATION IV INFUSION INIT Completed 05/16/16 JOBY OLEARY M.D. INSERT EMERGENCY AIRWAY Completed 07/09/16 MARJ SHELDON D.O. THER/PROPH/DIAG IV INF INIT Completed 07/09/16 MAJR SHELDON D.O. HYDRATE IV INFUSION ADD-ON Completed 07/09/16 MARJ SHELDONOJermain HYDRATE IV INFUSION ADD-ON Completed 07/09/16 MARJ SHELDONO. HYDRATE IV INFUSION ADD-ON Completed 07/09/16 MARJ SHELDON D.O. THER/PROPH/DIAG IV INF INIT Completed 03/06/14 AMANDA FIELDS M.D. THER/PROPH/DIAG IV INF ADDON Completed 03/06/14 TATIANA HAWK M.D. Encounters Encounter Location Arrival/Admit Date Discharge/Depart Date Attending Provider Discharged Inpatient [facility] 09/30/16 8:55am 10/08/16 1 :38pm SANIA VAUGHAN MD Departed Emergency Room [facility] 07/09/16 7:45am 11:00am MARJ SHELDON D.O. Discharged Inpatient [facility] 06/28/16 3:52pm 06/29/16 10:55am SANIA VAUGHAN MD Departed Emergency Room [facility] 06/26/16 6:03am 8:10am JOBY OLEARY M.D. Departed Emergency Room [facility] 06/19/16 4:26pm 5:18pm RAISA SNYDER M.D. Office Visit [facility] 06/13/16 11:15am APARNA AGUILAR MD Registered Practice [facility] 06/13/16 11:15am APARNA AGUILAR MD Registered [facility] 05/21/16 10:53am APARNA AGUILAR MD Office Visit [facility] 05/21/16 10:30am APARNA AGUILAR MD Departed Emergency Room [facility] 05/16/16 2:39pm 6:05pm JOBY OLEARY M.D. Office Visit [facility] T[facility] 04/30/16 3:30pm APARNA AGUILAR MD Departed Emergency Room [facility] 04/29/16 10:47am 11:20am AMANDA FIELDS M.D. Registered Clinic [facility] 04/17/16 1:18pm APARNA AGUILAR MD Office Visit [facility] 04/17/16 11:15am APARNA AGUILAR MD Office Visit [facility] 03/20/16 11:30am APARNA AGUILAR MD Office Visit [facility] 03/06/16 11:30am APARNA AGUILAR MD Registered Clinic [facility] 02/20/16 11:41am APARNA AGUILAR MD Office Visit [facility] 02/20/16 11:15am APARNA AGUILAR MD Office Visit [facility] 02/09/16 10:30am HARPAL ESPOSITO PA-C Registered Practice [facility] 02/09/16 10:30am HARPAL ESPOSITO PA-C Registered Clinic [facility] 02/09/16 10:30am HARPAL ESPOSITO PA-C Registered Referred [facility] 02/03/16 12:04pm THI CHUNG M.D. Office Visit [facility] 02/03/16 11:00am THI CHUNG M.D. Registered Clinic [facility] 02/03/16 11:00am THI CHUNG M.D. Office Visit [facility] 01/31/16 9:45am APARNA AGUILAR MD Office Visit [facility] 01/13/16 11:15am APARNA AGUILAR MD Registered Referred [facility] 01/13/16 9:30am OTHER, DOCTOR Office Visit [facility] 12/21/15 11:15am APARNA AGUILAR MD Office Visit [facility] 12/15/15 10:15am APARNA AGUILAR MD Registered Clinic [facility] 12/15/15 10:02am APARNA AGUILAR MD Discharged Inpatient [facility] 12/09/15 10:28am 12/10/15 1:30pm STU TERRELL M.D. Office Visit [facility] 12/01/15 10:30am APARNA AGUILAR MD Registered Referred [facility] 11/17/15 10:41am APARNA AGUILAR MD Office Visit [facility] 11/17/15 9:30am APARNA AGUILAR MD Registered Clinic [facility] 11/14/15 11:45am APARNA AGUILAR MD Office Visit [facility] 11/14/15 11:00am APARNA AGUILAR MD Registered Referred [facility] 11/09/15 11:08am APARNA AGUILAR MD Office Visit [facility] 11/09/15 11:00am APARNA AGUILAR MD Departed Emergency Room [facility] 11/03/15 2:52pm 4:00pm AMANDA FIELDS M.D. Office Visit [facility] 10/28/15 11:30am APARNA AGUILAR MD Office Visit [facility] 10/13/15 11:15am APARNA AGUILAR MD Departed Emergency Room [facility] 09/30/15 4:24pm 6:42pm SANIA PACKER DO Office Visit [facility] 09/08/15 11:00am APARNA AGUILAR MD Registered Referred [facility] 09/08/15 11:00am APARNA AGUILAR MD Registered Referred [facility] 08/16/15 12:00pm OTHER, DOCTOR Office Visit [facility] 08/16/15 11:15am APARNA AGUILAR MD Office Visit [facility] 07/25/15 2:00pm APARNA AGUILAR MD Registered Clinic [facility] 07/06/15 1:46pm APARNA AGUILAR MD Office Visit [facility] 07/06/15 1:45pm APARNA AGUILAR MD Discharged Inpatient (obs) [facility] 06/16/15 1:19pm 4:13pm SANIA VAUGHAN MD Office Visit [facility] 06/15/15 11:30am APARNA AGUILAR MD Office Visit [facility] 05/31/15 9:45am APARNA AGUILAR MD Discharged Inpatient (obs) [facility] 05/23/15 8:13am 07/08 12:14pm SANIA VAUGHAN MD [facility] 05/10/15 11:13am APARNA AGUILAR MD Office Visit [facility] 05/10/15 10:45am APARNA AGUILAR MD Office Visit [facility] 04/26/15 10:15am APARNA AGUILAR MD Office Visit [facility] 04/20/15 1:15pm APARNA AGUILAR MD Office Visit [facility] 04/06/15 10:45am APARNA AGUILAR MD Office Visit [facility] 03/24/15 10:30am APARNA AGUILAR MD Discharged Inpatient (obs) [facility] 03/16/15 3:50pm 5:40pm TATIANA HAWK M.D. Office Visit [facility] 03/15/15 10:45am APARNA AGUILAR MD Registered Referred [facility] 02/23/15 12:47pm APARNA AGUILAR MD Departed Clinic [facility] 02/22/15 11:13am 02/22/15 12: 02pm GIOVANI MONTANEZ MD Registered Referred [facility] 02/22/15 10:57am APARNA AGUILAR MD Office Visit [facility] 02/22/15 10:45am APARNA AGUILAR MD Office Visit [facility] 02/09/15 10:15am APARNA AGUILAR MD Departed Clinic [facility] 01/18/15 11:27am 01/18/15 2: 10pm TATIANA HAWK M.D. Office Visit [facility] 01/18/15 11:00am APARNA AGUILAR MD Discharged Inpatient (obs) [facility] 01/09/15 11:45am 5:55pm TATIANA HAWK M.D. Departed Emergency Room [facility] 12/30/14 11:10am 1:40pm CLARISA ALVES M.D. Office Visit [facility] 12/27/14 11:15am APARNA AGUILAR MD Office Visit [facility] 12/20/14 1:15pm APARNA AGUILAR MD Registered Referred [facility] 12/16/14 10:00am APARNA AGUILAR MD Office Visit [facility] 12/16/14 9:45am APARNA AGUILAR MD Office Visit [facility] 12/09/14 10:45am APARNA AGUILAR MD Departed Emergency Room [facility] 11/30/14 9:15am 11:05am JAMES WHITE M.D. Office Visit [facility] 11/22/14 9:45am APARNA AGUILAR MD Office Visit [facility] 11/05/14 11:30am APARNA AGUILAR MD Departed Emergency Room [facility] 11/03/14 11:29am 2:37pm NICHOLAS LOZOYA M.D. Departed Clinic [facility] 10/26/14 10:38am 10/26/14 11: 49am GIOVANI MONTANEZ MD Office Visit [facility] 10/26/14 10:00am APARNA AGUILAR MD Departed Emergency Room [facility] 10/21/14 10:14am 11:43am SANIA PACKER DO Office Visit [facility] 10/13/14 1:00pm APARNA AGUILAR MD Departed Clinic [facility] 10/12/14 10:45am 10/12/14 11: 11am GIOVANI MONTANEZ MD Departed Clinic [facility] 09/28/14 10:32am 09/28/14 12: 19pm GIOVANI MONTANEZ MD Office Visit [facility] 09/28/14 10:15am APARNA AGUILAR MD Office Visit [facility] 09/15/14 11:15am APARNA AGUILAR MD Office Visit [facility] 09/01/14 10:45am APARNA AGUILAR MD Departed Clinic [facility] 08/31/14 10:54am 08/31/14 11: 20am GIOVANI MONTANEZ MD Office Visit [facility] 08/18/14 10:45am APARNA AGUILAR MD Office Visit [facility] 08/10/14 10:30am APARNA AGUILAR MD Discharged Inpatient [facility] 08/04/14 4:51pm 08/07/14 5 :05pm TATIANA HAWK M.D. Registered Referred [facility] 08/03/14 12:03pm APARNA AGUILAR MD Office Visit [facility] 08/03/14 11:15am APARNA AGUILAR MD Departed Clinic [facility] 08/03/14 10:26am 08/03/14 11: 34am GIOVANI MONTANEZ MD Office Visit [facility] 07/22/14 10:45am APARNA AGUILAR MD Discharged Inpatient [facility] 07/09/14 11:21am 07/12/14 2:45pm TATIANA HAWK M.D. Registered Referred [facility] 07/08/14 10:00am APARNA AGUILAR MD Office Visit [facility] TURCIOSS 07/08/14 9:00am APARNA AGUILAR MD Departed Clinic [facility] 07/06/14 10:21am 07/06/14 11: 19am GIOVANI MONTANEZ MD Office Visit [facility] 07/02/14 10:30am APARNA AGUILAR MD Discharged Inpatient [facility] 06/15/14 1:11am 06/16/14 11:50am TATIANA HAWK M.D. Departed Clinic [facility] 06/14/14 11:24am 06/14/14 1: 09pm APARNA AGUILAR MD Office Visit [facility] 06/14/14 11:00am APARNA AGUILAR MD Office Visit [facility] 06/02/14 11:15am APARNA AGUILAR MD Discharged Inpatient [facility] 05/21/14 10:17pm 05/24/14 11:40am ATTIANA HAWK M.D. Office Visit [facility] 04/26/14 8:45am APARNA AGUILAR MD Registered Referred [facility] 04/20/14 2:16pm APARNA AGUILAR MD Office Visit [facility] 04/20/14 1:30pm APARNA AGUILAR MD Departed Clinic [facility] 04/20/14 11:00am 04/20/14 11: 57am GIOVANI MONTANEZ MD Office Visit [facility] 04/14/14 11:15am APARNA AGUILAR MD Office Visit [facility] 04/01/14 10:30am APARNA AGUILAR MD Departed Clinic [facility] 03/23/14 10:53am 03/23/14 12: 39pm GIOVANI MONTANEZ MD Office Visit [facility] 03/18/14 10:15am APARNA AGUILAR MD Office Visit [facility] 03/11/14 11:15am APARNA AGUILAR MD Departed Clinic [facility] 03/09/14 11:00am 03/09/14 11: 22am GIOVANI MONTANEZ MD Discharged Inpatient (obs) [facility] 03/06/14 8:25pm 2:40pm TATIANA HAWK M.D. Office Visit [facility] 03/05/14 11:15am APARNA AGUILAR MD Office Visit [facility] 03/01/14 9:15am APARNA AGUILAR MD [facility] 02/26/14 10:23am APARNA AGUILAR MD Office Visit [facility] 02/26/14 10:00am APARNA AGUILAR MD Departed Clinic [facility] 02/23/14 11:35am 02/23/14 12: 01pm GIOVANI MONTANEZ MD Discharged Inpatient [facility] 02/16/14 8:34pm 02/19/14 4 :30pm TATIANA HAWK M.D. Discharged Inpatient [facility] 02/12/14 2:30am 02/15/14 11:00am APARNA AGUILAR MD Departed [facility] 02/08/14 10:15am 1:28pm CAROLINA DUMONT M.D. Office Visit [facility] T[facility] 02/02/14 2:15pm APARNA AGUILAR MD Departed Clinic [facility] 02/02/14 1:31pm 02/02/14 2: 25pm GIOVANI MONTANEZ MD Office Visit [facility] 01/21/14 10:00am APARNA AGUILAR MD Discharged Recurring [facility] 12/01/13 3:00pm 08/26/16 11:59pm APARNA AGUILAR MD
--- NOTE | 2016-11-10 06:28 | ERPDOC ---
Departure Disposition Decision Date: November 10, 2016 Disposition Decision Time: 06:16 Disposition: 20 Impression Impression Impression: Primary Impression: Cardiac arrest Severity: Critical Condition: Seen By: Physician only Referrals: Raquel AGUILAR JR (Family) Problems/Meds/Labs Reviewed?: Yes Medications reviewed and manag: Yes Follow up care ordered?: No HPI - General Medical General Chief Complaint: Resuscitation Stated Complaint: UNRESPONSIVE Time Seen by Provider: 06:23 Source: EMS Exam Limitations: clinical condition HPI - General Medical Initial Comments 76 M presents to the ED via EMS in Cardiac Arrest. Patient was found unresponsive at approximately 0530 today by long-term staff. Patient was transported by [facility] with an AED. Patient received approximately 8 shocks from the AED upon EMS arrival to the long-term. The last 4 readings from the AED indicated no shock. Patient arrived to the ED in asystole. ACLS protocol with CPR and AED were followed in the pre-hospital course by EMS. Patient was easily being bagged with a bag valve mask by EMS. History is limited to EMS report / NH Records as history was limited by the critical clinical condition of the patient. Occurred At: other (Nursing Facility) Onset: Constant Past History Patient Surgical History Unable to obtain due to clinical condition. Past Medical History Metabolic: hypertension Cardiac: A-fib, CHF Respiratory: COPD Family History Family History Comments Unable to obtain due to clinical condition. Social History Smoking Status: Unknown if ever smoked Substance Use Type: unknown Last Drink: unknown Review of Systems Unable to Obtain ROS Due to: clinical condition Physical Exam General Vitals and Pain Weight: Kilograms: Height (feet): Height (inches): Triage Pain Scale: Normal Exams: Head: Normocephalic w/o trauma ENMT: No facial trauma, nasal exudates, pharyngeal erythema, or exudates are noted Lymphatic: No lymphadenopathy, or lymphedema noted Eyes (brief) Comments Pupils are fixed and dilated. Neck (brief) Neck: FOUND: trachea midline Respiratory (brief) Comments Breath sounds are symmetric bilaterally and only present with bagging. Cardiovascular (brief) Comments Pulses present carotid and femoral only with CPR in progress. Abdomen (brief) Abdominal Brief: FOUND: soft Neurologic (brief) Comments Unresponsive. Differential Diagnoses Considering: Other (Cardiac arrest, respiratory arrest, hypoglycemia, metabolic ) Progress Progress Progress Patient arrived via [facility] in cardiac arrest with CPR in progress. Patient is being easily bagged by EMS. Patient has received approximately 8 shocks from an AED prior to arrival to the ED. ACLS protocol was followed with CPR in progress. Upon arrival to the ED vascular access was obtained via humeral I/O insertion without complication. ACLS protocol was continued upon arrival to the ED by ED staff and myself. Patient received 2 rounds of EPI via I/O. Patient was also given 1 mg of Narcan I/O without change in condition. BG was 182 mg/ dL. IVF was infused via I/O during cardiac arrest. CPR was continued. Patient was able to be easily bagged with the bag valve mask in the ED. Advanced airway was not inserted due to the patient being in asystole without viable rhythm for a prolonged time and the patient being easily bagged in the ED. Patient did have any cardiac rhythm other than asystole on the monitor in the ED during rhythm checks. Patient was down for approximately 46 minutes prior to the code being called. Time of was 0616. Despite ACLS protocol patient was unable to be successfully resuscitated. Family / PCP / [facility]/ Corner are notified. TONIO ZARATE DO November 10, 2016 06:28
--- OUTSIDE RECORDS SUMMARY | 2016-11-10 06:28 | XMS REPORT | Continuity of Care Document ---
Author Author [facility] Organization [facility] Address Unknown Phone Unavailable Care Team Providers Care Document Improvement Specialist Name Role Phone APARNA AGUILAR MD Unavailable [phone] Insurance Providers Payer Name Policy Number Subscriber Name Relationship [employer] [id number] Amee Guillen 01 Self / Same As Patient For Life [id number] Amee Guillen Self / Same As Patient [...] 05/27/13 08/25/13 Discontinued Fluticasone Propionate (Nasal) 2 [place] NA DAILY 1 Qty 05/27/13 Discontinued Levofloxacin [...] Qty 02/08/14 Active Fluticasone Propionate (Nasal) 1-2 [place]anchard NA DAILY For STUFFY NOSE 1 Qty [...] sufficient to end on 08/10/14 08/07/14 Active Sulfamethoxazole-Trimethoprim 1 Tab PO TWICE A DAY 20 Qty 08/10/14 Active Sertraline Hcl 100 Mg PO DAILY For ANTIDEPRESSANT 90 Qty 08/18/14 Active Lorazepam 0.5 Mg PO Every 4 hours as needed For ANXIETY 60 Qty Active Sulfamethoxazole-Trimethoprim 1 Tab PO TWICE A DAY 20 Qty 09/28/14 Active Social History Social History Problem Response [...] Vital Signs Vital Response Date/Time Blood Pressure 92/54 mm Hg Blood Pressure Mean 74 mm Hg Blood Pressure Mean 79 mm Hg Temperature (Fahrenheit) 96.5 degrees F (96.0 - 99.9) Temperature (Calculated Celsius) 36.63689 degrees C Temperature (Calculated Celsius) 36.34780 degrees C (36.4 - 37.5) Temperature (Fahrenheit) 98.4 degrees F (96.0 - 99.9) Temperature Source Oral Temperature Source Oral Temp 98.4 degrees F (96.0 - 99.9) Temperature (Calculated Celsius) 36.46324 degrees C Pulse Pulse Rate (adult) 105 bpm (60 - 100) Pulse Rate (adult) 115 bpm (60 - 100) Pulse Rate: ED 85 bpm Respiratory Rate 20 breaths per minute (10 - 20) Respiratory Rate 14 bpm (10 - 20) Height (Feet) 5 ft Height (Inches) 6.0 in. Weight (Pounds) 256.7 lbs Ambulatory Vital Signs Vital Response Date/Time Height 5 ft 5 in 09/28/2014 10:14am Weight 269 lbs 09/28/2014 10:14am Blood Pressure 100/64 mm Hg 09/28/2014 10:14am Body Surface Area 2.43 m2 09/28/2014 10:14am Body Mass Index 44.8 kg/m2 09/28/2014 10:14am Results Test Source Date Result Interp. Ref. [...] April 29, 2014 8:54am Lab Scanned Report [id number] Lactate Dehydrogenase September 28, 1998 4:10pm 152 [...] Synovial Fluid WBC September 27, 1998 12:00am 63959.0 /uL PH Target Cells August 05, 2001 [...] NONE SOURCE: URINE, CLEAN CATCH Urine Specific [place] July 09, 2014 6:35am 1.015 1.005-1.030 SOURCE: [...] history of procedures. Encounters Encounter Location Date/Time Registered Clinic [facility] 09/28/14 10:32am Office Visit APARNA TURCIOSS 09/28/14 10:15am Office Visit [facility] TURCIOSS 09/15/14 11:15am Office Visit [facility]NA TURCIOSS 09/01/14 10:45am Registered Clinic [facility] 08/31/14 10:54am Office Visit APARNA TURCIOSS 08/18/14 10:45am Office Visit [facility]NA TURCIOSS 08/10/14 10:30am Discharged Inpatient [facility] 08/04/14 4:51pm Office Visit [facility]NA TURCIOSS 08/03/14 11:15am Registered Clinic [facility] 08/03/14 10:26am Office Visit [facility] TURCIOSS 07/22/14 10:45am Discharged Inpatient [facility] 07/09/14 11:21am Office Visit [facility]NA TURCIOSS 07/08/14 9:00am Registered Clinic [facility] 07/06/14 10:21am Office Visit [facility]NA TURCIOSS 07/02/14 10:30am Discharged Inpatient [facility] 06/15/14 1:11am Registered Clinic [facility] 06/14/14 11:24am Office Visit [facility]NA TURCIOSS 06/14/14 11:00am Office Visit [facility] 06/02/14 11:15am Discharged Inpatient [facility] 05/21/14 10:17pm Office Visit [facility]NA TURCIOSS 04/26/14 8:45am Office Visit [facility] TURCIOSS 04/20/14 1:30pm Registered Clinic [facility] 04/20/14 11:00am Office Visit [facility] 04/14/14 11:15am Office Visit [facility] 04/01/14 10:30am Registered Clinic [facility] 03/23/14 10:53am Office Visit [facility] R [facility] 03/18/14 10:15am Office Visit [facility] R JE[facility] 03/11/14 11:15am Registered Clinic [facility] 03/09/14 11:00am Discharged Inpatient [facility] 03/06/14 8:25pm Office Visit [facility] R JE[facility] 03/05/14 11:15am Office Visit [facility] 03/01/14 9:15am Office Visit [facility] 02/26/14 10:00am Registered Clinic [facility] 02/23/14 11:35am Discharged Inpatient [facility] 02/16/14 8:34pm Discharged Inpatient [facility] 02/12/14 2:30am Departed Emergency Room [facility] 02/08/14 10:15am Office Visit [facility] R JEFF 02/02/14 2:15pm Registered Clinic [facility] 02/02/14 1:31pm Office Visit [facility] 01/21/14 10:00am Registered Clinic [facility] 01/12/14 11:43am Office Visit [facility] 01/07/14 10:00am Registered Clinic [facility] 12/22/13 12:49pm Office Visit [facility] 12/22/13 11:30am Office Visit [facility] 12/10/13 11:00am Registered Recurring [facility] 12/01/13 3:00pm Registered Clinic [facility] 12/01/13 2:25pm Discharged Inpatient [facility] 11/27/13 2:30am Office Visit [facility] 11/26/13 10:45am Office Visit [facility] 11/12/13 11:30am Office Visit [facility] 11/05/13 9:15am Discharged Inpatient [facility] 10/30/13 12:37pm Office Visit APARNA AGUILAR 10/27/13 10:45am Office Visit AP[facility]NA AGUILAR 10/06/13 11:15am
--- OUTSIDE RECORDS SUMMARY | 2016-11-10 06:29 | XMS REPORT | Continuity of Care Document ---
Author Author [facility] Organization [facility] Address Unknown Phone Unavailable Care Team Providers Care Clock And Watch Hands Dipper Name Role Phone APARNA AGUILAR MD Unavailable [phone] Insurance Providers Payer Name Policy Number Subscriber Name Relationship [employer] Medicare [id number] Amee Guillen Self / Same As Patient For Life [id number] Amee Guillen Self / Same As Patient Chief Complaint and Reason for Visit Chief Complaint Weakness Reason for Visit Contusion of back wall of thorax [id number] Problems Medical Problems Problem Onset Date Status [...] Unknown Active Fall against object Unknown Active Medications Medication Dose Route Sig [...] Tab PO TWICE A DAY 20 Qty 12/19/11 12/ 28/11 Discontinued Cholecalciferol 2,000 Unit PO DAILY 06/15/11 [...] 05/27/13 08/25/13 Discontinued Fluticasone Propionate (Nasal) 2 [place] NA DAILY 1 Qty 05/27/13 Discontinued Levofloxacin 500 Mg PO DAILY 10 Qty 05/29/13 07/31/13 Discontinued Magnesium Oxide 400 Mg PO TWICE A DAY 180 Qty 06/30/13 Active Fluconazole 100 Mg PO WEEKLY 12 Qty 06/30/13 Active Tamsulosin Hcl 0.4 Mg PO DAILY 90 Qty 06/30/13 Active Fluticasone Propionate (Nasal) 2 [place] NA DAILY 3 Qty 06/30/13 Active Minocycline [...] Mg PO DAILY 30 Qty 02/08/14 Active Social History Social History Problem Response Recorded Date/Time Smoking Status Former smoker 02/08/2014 10:24am Query Response Start Date Stop Date Smoking Status Former smoker Hospital Discharge Instructions No hospital discharge instructions. Plan of Care Discharge Date 02/08/14 1:28pm Disposition 01 HOME, SELF-CARE Condition at Discharge Stable Prescriptions See Medications Section Referrals APARNA AGUILAR [...] Vital Signs Vital Response Date/Time Blood Pressure 101/72 mm Hg 02/08/2014 1:02pm Blood Pressure Mean 82 mm Hg 02/08/2014 1:02pm Pulse 02/08/2014 1:02pm Pulse Rate: ED 116 bpm 02/08/2014 1:02pm Respiratory Rate 20 breaths per minute (10 - 20) 02/08/2014 1:02pm Ambulatory Vital Signs Vital Response Date/Time Height 5 ft 5 in 02/02/2014 1:45pm Weight 276 lbs 02/02/2014 1:45pm Blood Pressure 98/60 mm Hg 02/02/2014 1:45pm Body Surface Area 2.47 m2 02/02/2014 1:45pm Body Mass Index 45.9 kg/m2 02/02/2014 1:45pm Results Test Source Date Result Interp. Ref. Range Comments Blood Culture Blood May 28, 2013 1:42am [...] history of procedures. Encounters Encounter Location Date/Time Departed Emergency Room [facility] 02/08/14 10:15am Office Visit APARNA AGUILAR 02/02/14 2:15pm Registered [facility] 02/02/14 1:31pm Office Visit APARNA R JEFF 01/21/14 10:00am Registered Clinic [facility] 01/12/14 11:43am Office Visit APARNA R JEFF 01/07/14 10:00am Registered Clinic [facility] 12/22/13 12:49pm Office Visit APARNA R JEFF 12/22/13 11:30am Office Visit APARNA R JEFF 12/10/13 11:00am Registered Recurring [facility] 12/01/13 3:00pm Registered Clinic [facility] 12/01/13 2:25pm Discharged Inpatient [facility] 11/27/13 2:30am Office Visit APARNA R JEFF 11/26/13 10:45am Office Visit APARNA R JEFF 11/12/13 11:30am Office Visit APARNA R JEFF 11/05/13 9:15am Discharged Inpatient [facility] 10/30/13 12:37pm Office Visit APARNA R JEFF 10/27/13 10:45am Office Visit AP[facility]NA R JEFF 10/06/13 11:15am Office Visit APARNA R JEFF 09/24/13 10:00am Office Visit APARNA R JEFF 09/08/13 10:30am Office Visit APARNA R JEFF 08/25/13 10:00am Office Visit APARNA R JEFF 08/18/13 11:00am Registered Clinic [facility] 08/11/13 2:45pm Office Visit APARNA R JEFF 08/11/13 2:15pm Office Visit APARNA R JEFF 08/05/13 10:45am Office Visit APARNA R JEFF 07/31/13 1:00pm Office Visit APARNA R JEFF 07/30/13 10:05am Office Visit APARNA R JEFF 07/24/13 11:30am Office Visit APARNA R JEFF 07/14/13 10:30am Office Visit APARNA R JEFF 06/30/13 10:30am Registered Clinic [facility] 06/09/13 11:37am Office Visit APARNA R JEFF 06/09/13 11:30am Registered Clinic [facility] 06/02/13 11:35am Office Visit APARNA AGUILAR 06/02/13 11:15am Discharged Inpatient [facility] 05/28/13 7:10am Office Visit APARNA AGUILAR 05/27/13 1:00pm Discharged Inpatient [facility] 05/25/13 9:20am Office Visit APARNA AGUILAR 05/19/13 11:15am Registered Clinic [facility] 05/12/13 1:36pm Office Visit APARNA AGUILAR 05/12/13 1:15pm Office Visit APARNA AGUILAR 05/06/13 11:15am Office Visit APARNA AGUILAR 04/22/13 11:00am Office Visit APARNA AGUILAR 04/09/13 10:30am Office Visit APARNA AGUILAR 03/26/13 11:00am Office Visit APARNA AGUILAR 03/12/13 10:15am Office Visit APARNA AGUILAR 03/04/13 10:45am Office Visit APARNA AGUILAR 02/26/13 10:30am Office Visit APARNA AGUILAR 02/18/13 10:45am Recent Diagnosis
--- OUTSIDE RECORDS SUMMARY | 2016-11-10 06:29 | XMS REPORT | Continuity of Care Document ---
Author Author [facility] Organization [facility] Address Unknown Phone Unavailable Care Team Providers Care Hot Kettle Tender Name Role Phone APARNA AGUILAR MD Unavailable [phone] Insurance Providers Payer Name Policy Number Subscriber Name Relationship [employer] [id number] Amee Guillen 01 Self / Same As Patient For Life [id number] Amee Guillen Self / Same As Patient [...] 05/27/13 08/25/13 Discontinued Fluticasone Propionate (Nasal) 2 [place] NA DAILY 1 Qty 05/27/13 Discontinued Levofloxacin [...] Qty 02/08/14 Active Fluticasone Propionate (Nasal) 1-2 [place] NA DAILY For STUFFY NOSE 1 Qty [...] as needed For ANXIETY 60 Qty Active Social History Social History Problem Response [...] F (96.0 - 99.9) Temperature (Calculated Celsius) 36.85103 degrees C Temperature (Calculated Celsius) 36.44248 degrees C (36.4 - 37.5) Temperature (Fahrenheit) 98.4 degrees F (96.0 - 99.9) Temperature Source Oral Temperature Source Oral Temp 98.4 degrees F (96.0 - 99.9) Temperature (Calculated Celsius) 36.87621 degrees C Pulse Pulse Rate (adult) 105 bpm (60 - 100) Pulse Rate (adult) 115 bpm (60 - 100) Pulse Rate: ED 85 bpm Respiratory Rate 20 breaths per minute (10 - 20) Respiratory Rate 14 bpm (10 - 20) Height (Feet) 5 ft Height (Inches) 6.0 in. Weight (Pounds) 256.7 lbs Ambulatory Vital Signs Vital Response Date/Time Height 5 ft 5 in 08/18/2014 10:45am Weight 265 lbs 08/18/2014 10:45am Blood Pressure 104/66 mm Hg 08/18/2014 10:45am Body Surface Area 2.41 m2 08/18/2014 10:45am Body Mass Index 44.1 kg/m2 08/18/2014 10:45am Results Test Source Date Result Interp. Ref. [...] April 29, 2014 8:54am Lab Scanned Report [id number] Lactate Dehydrogenase September 28, 1998 4:10pm 152 [...] Synovial Fluid WBC September 27, 1998 12:00am 31787.0 /uL PH Target Cells August 05, 2001 [...] NONE SOURCE: URINE, CLEAN CATCH Urine Specific [place] July 09, 2014 6:35am 1.015 1.005-1.030 SOURCE: [...] Encounter Location Date/Time Registered Clinic [facility] 08/31/14 10:54am Office Visit APARNA TURCIOSS 08/18/14 10:45am Office Visit APARNA TURCIOSS 08/10/14 10:30am Discharged Inpatient [facility] 08/04/14 4:51pm Office Visit APARNA TURCIOSS 08/03/14 11:15am Registered Clinic [facility] 08/03/14 10:26am Office Visit APARNA TURCIOSS 07/22/14 10:45am Discharged Inpatient [facility] 07/09/14 11:21am Office Visit APARNA TURCIOSS 07/08/14 9:00am Registered Clinic [facility] 07/06/14 10:21am Office Visit APARNA TURCIOSS 07/02/14 10:30am Discharged Inpatient [facility] 06/15/14 1:11am Registered Clinic [facility] 06/14/14 11:24am Office Visit APARNA TURCIOSS 06/14/14 11:00am Office Visit APARNA TURCIOSS 06/02/14 11:15am Discharged Inpatient [facility] 05/21/14 10:17pm Office Visit APARNA TURCIOSS 04/26/14 8:45am Office Visit APARNA TURCIOSS 04/20/14 1:30pm Registered Clinic [facility] 04/20/14 11:00am Office Visit APARNA TURCIOSS 04/14/14 11:15am Office Visit APARNA DELUCAHNS 04/01/14 10:30am Registered Clinic [facility] 03/23/14 10:53am Office Visit APARNA TURCIOSS 03/18/14 10:15am Office Visit APARNA DELUCAHNS 03/11/14 11:15am Registered Clinic [facility] 03/09/14 11:00am Discharged Inpatient [facility] 03/06/14 8:25pm Office Visit APARNA R JEFF 03/05/14 11:15am Office Visit APARNA R JEFF 03/01/14 9:15am Office Visit APARNA R JEFF 02/26/14 10:00am Registered Clinic [facility] 02/23/14 11:35am Discharged Inpatient [facility] 02/16/14 8:34pm Discharged Inpatient [facility] 02/12/14 2:30am Departed Emergency Room [facility] 02/08/14 10:15am Office Visit APARNA R JEFF 02/02/14 2:15pm Registered Clinic [facility] 02/02/14 1:31pm Office Visit APARNA R JEFF 01/21/14 10:00am Registered Clinic [facility] 01/12/14 11:43am Office Visit APARNA R JEFF 01/07/14 10:00am Registered Clinic [facility] 12/22/13 12:49pm Office Visit APARNA R JEFF 12/22/13 11:30am Office Visit APARNA R JEFF 12/10/13 11:00am Registered Recurring [facility] 12/01/13 3:00pm Registered Clinic [facility] 12/01/13 2:25pm Discharged Inpatient [facility] 11/27/13 2:30am Office Visit APARNA R JEFF 11/26/13 10:45am Office Visit APARNA R JEFF 11/12/13 11:30am Office Visit APARNA R JEFF 11/05/13 9:15am Discharged Inpatient [facility] 10/30/13 12:37pm Office Visit APARNA R JEFF 10/27/13 10:45am Office Visit APARNA R JEFF 10/06/13 11:15am Office Visit APARNA R JEFF 09/24/13 10:00am Office Visit APRANA R JEFF 09/08/13 10:30am
--- OUTSIDE RECORDS SUMMARY | 2016-11-10 06:29 | XMS REPORT | Referral Summary ---
Author Author [facility] Organization [facility] Address Unknown Phone Unavailable Care Team Providers Care Hogshead Liner Name Role Phone Humza Augustin Primary Care Physician [phone] Encounter VC Date(s): 07/09/16 - 07/30/16 [facility] [address] [place], [place] [address] Discharge Disposition: [address] [place] [address] Attending Physician: Edin Gallegos MD Admitting Physician: David Rothman MD Vital Signs Most recent to 1 oldest [Reference Range]: Temperature Oral 38.2 degC [35.8-37.3 degC] *HI* (07/12/16 8:00 AM) Temperature Tympanic 37.3 degC [36.6-38.1 degC] (07/30/16 8:00 AM) Temperature Temporal 36.3 degC Artery [36.3-37.8 (07/30/16 12:00 PM) degC] Peripheral Pulse 106 bpm Rate [60-100 bpm] *HI* (07/30/16 8:51 AM) Heart Rate Monitored 106 bpm [60-100 bpm] *HI* (07/30/16 1:30 PM) Respiratory Rate 30 br/min [14-20 br/min] *HI* (07/30/16 1:30 PM) Blood Pressure 153/97 mmHg [90-140/60-90 mmHg] *HI* (07/30/16 1:30 PM) Mean Arterial 116 mmHg Pressure, Cuff (07/30/16 1:30 PM) SpO2 98 % (07/30/16 1:30 PM) Remote Telemetry Ongoing (07/30/16 12:00 PM) Problem List Condition Effective Dates Status Health Status Informant Acute Active pain(Confirmed) Alteration in Active nutrition(Confirmed) 1 At risk for Active falls(Confirmed)2 At risk for Active injury(Confirmed)3 At risk of pressure Active sore(Confirmed) Sleep related Active hypoventilation/hypo xemia in other disease(Confirmed) 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 3Problem added automatically by system based on initiation of Risk for Injury Plan of Care 4Problem added automatically by system based on initiation of Ineffective Airway Clearance Plan of Care 5Problem added automatically by system based on initiation of Tissue Perfusion Cerebral Plan of Care Allergies, Adverse Reactions, Alerts Substance Reaction Severity Status allopurinol skin peels off Medium Active skin sloughed off celecoxib blistering of skin Active Effexor Active metoclopramide excessive drowsiness,hallucina Active Rocephin Active Tape Adverse Reaction Active Medications albuterol 5 mg/mL (0.5%) inhalation solution 2.5 mg 0.5 mL, NEB, QID, 0 Refill(s) Start Date: 07/27/16 Status: Ordered albuterol 5 mg/mL (0.5%) inhalation solution 2.5 mg 0.5 mL, NEB, q2hr, Shortness of Breath/Wheezing, 0 Refill(s) Start Date: 07/27/16 Status: Ordered Ativan 0.5 mg oral tablet 0.5 mg 1 tabs, Oral, q4hr, Anxiety, 0 Refill(s) Start Date: 07/27/16 Status: Ordered budesonide 0.5 mg/2 mL inhalation suspension 0.5 mg 2 mL, NEB, BID, 0 Refill(s) Start Date: 07/27/16 Status: Ordered carvedilol 6.25 mg oral tablet 6.25 mg 1 tabs, Oral, BIDWM, 0 Refill(s) Start Date: 07/27/16 Status: Ordered colchicine 0.6 mg oral tablet 0.6 mg 1 tabs, Oral, Daily, 0 Refill(s) Start Date: 07/27/16 Status: Ordered diltiazem 30 mg oral tablet 60 mg 2 tabs, NG-Tube, QID, # 240 tabs, 0 Refill(s), [facility]: [facility], 2 tabs NG-Tube QID Start Date: 07/29/16 Status: Ordered enoxaparin 40 mg/0.4 mL injectable solution 40 mg 0.4 mL, SubCutaneous, q12hr (scheduled), 0 Refill(s) Start Date: 07/27/16 Status: Ordered gabapentin 250 mg/5 mL oral solution 600 mg 12 mL, PEG-Tube, BID, 0 Refill(s) Start Date: 07/29/16 Status: Ordered gabapentin 300 mg oral capsule 600 mg 2 caps, Oral, BID, 0 Refill(s) Start Date: 07/27/16 Status: Ordered insulin aspart Sliding Scale High, SubCutaneous, As Indicated, Hyperglycemia/High Blood Sugar, 0 Refill(s) Start Date: 07/27/16 Status: Ordered insulin detemir 100 units/mL subcutaneous solution 41 units, SubCutaneous, BID, # 15 mL, 0 Refill(s), [facility]: [facility] , 41 units SubCutaneous BID Start Date: 07/27/16 Status: Ordered ipratropium 500 mcg/2.5 mL inhalation solution 0.5 mg 2.5 mL, NEB, q2hr, Bronchospasms, # 900 mL, 0 Refill(s), [facility]: [facility], 2.5 mL NEB q2hr,PRN:Bronchospasms Start Date: 07/27/16 Status: Ordered ipratropium 500 mcg/2.5 mL inhalation solution 0.5 mg 2.5 mL, NEB, QID, # 300 mL, 0 Refill(s), [facility]: [facility], 2.5 mL NEB QID Start Date: 07/27/16 Status: Ordered miconazole 2% topical powder 1 mary, Topical, BID, # 90 g, 0 Refill(s), [facility]: [facility] Start Date: 07/27/16 Status: Ordered MiraLax oral powder for reconstitution 17 g, Oral, Daily, dissolve in water before taking, # 255 g, 0 Refill(s), [facility]: [facility] Start Date: 07/27/16 Status: Ordered omeprazole 2 mg/mL oral suspension 20 mg 10 mL, PEG-Tube, Daily, 0 Refill(s) Start Date: 07/30/16 Status: Ordered OxyCONTIN 40 mg oral tablet, extended release 40 mg 1 tabs, Oral, TID, do not crush or chew Per pt's , pt can have an additional 3 tablets per day not to exceed 6 tabs per day., 0 Refill(s) Start Date: 07/29/16 Status: Ordered Percocet 10/325 oral tablet 1-2 tabs, Oral, q6hr, as needed for pain, not to exceed 8 tablets/day Per pt's , pt takes 1 tab q6 hrs and can take up to 2 tabs q6 hours, # 10 tabs, 0 Refill(s) Start Date: 07/29/16 Status: Ordered senna 8.6 mg oral tablet 8.6 mg 1 tabs, Oral, Daily, # 36 tabs, 0 Refill(s), [facility]: [facility], 1 tabs Oral Daily Start Date: 07/27/16 Status: Ordered sertraline 100 mg oral tablet 100 mg 1 tabs, Oral, Daily, 0 Refill(s) Start Date: 07/09/16 Status: Ordered Simbrinza 1%- 0.2% ophthalmic suspension 1 drops, Eye-Right, BID, # 8 mL, 0 Refill(s) Start Date: 07/09/16 Status: Ordered spironolactone 25 mg oral tablet 50 mg 2 tabs, Oral, Daily, 0 Refill(s) Start Date: 07/27/16 Status: Ordered Synthroid 75 mcg (0.075 mg) oral tablet 75 mcg 1 tabs, Oral, Daily, 0 Refill(s) Start Date: 03/18/14 Status: Ordered Vitamin D3 2000 intl units oral tablet 2,000 Intl_Units 1 tabs, Oral, Daily, 0 Refill(s) Start Date: 03/18/14 Status: Ordered Zantac 150 oral tablet 150 mg 1 tabs, Oral, BID, 0 Refill(s) Start Date: 03/18/14 Status: Ordered Zofran 2 mg/mL injectable solution 4 mg 2 mL, IV Push, q6hr, Nausea, 0 Refill(s) Start Date: 07/27/16 Status: Ordered Results Blood Gases Most recent to 1 oldest [Reference Range]: pH [7.35-7.45] 7.45 (07/25/16 6:34 AM) pCO2 Art [35-45 31 mmHg mmHg] *LOW* (07/25/16 6:34 AM) Bicarbonate [22-26 21 mEq/L mEq/L] *LOW* (07/25/16 6:34 AM) Base Excess Art -2 [0-2] *LOW* (07/25/16 6:34 AM) O2 Sat Art 92.2 % [90.0-97.0 %] (07/25/16 6:34 AM) pO2 Art [80-100 61 mmHg mmHg] *LOW* (07/25/16 6:34 AM) O2 Panel ps12 25% (07/25/16 6:34 AM) Vent Mode PSV (07/25/16 6:34 AM) Set Vt 470 mL 1 (07/12/16 7:46 AM) Set Rate 14 br/min (07/12/16 7:46 AM) PEEP 5.0 (07/25/16 6:34 AM) Spec Site A. radialis r. (07/25/16 6:34 AM) 1Result Comment: value corrected Corrected result; previously reported as 450 on 07/12/16 at 07:46 by [id number] Hematology Most recent to 1 oldest [Reference Range]: WBC [4.8-10.8 12.1 10*3/uL 10*3/uL] *HI* (07/30/16 3:54 AM) RBC [4.60-6.20] 4.15 *LOW* (07/30/16 3:54 AM) Hgb [14.0-18.0 11.9 gm/dL gm/dL] *LOW* (07/30/16 3:54 AM) Hct [42.0-52.0 %] 39.6 % *LOW* (07/30/16 3:54 AM) MCV [82.0-99.0 fL] 95.4 fL (07/30/16 3:54 AM) MCH [27.0-32.0 pg] 28.7 pg (07/30/16 3:54 AM) MCHC [32.0-36.0 30.1 gm/dL gm/dL] *LOW* (07/30/16 3:54 AM) RDW [11.5-14.5 %] 15.4 % *HI* (07/30/16 3:54 AM) Platelet [150-400 221 10*3/uL 10*3/uL] (07/30/16 3:54 AM) MPV [9.4-12.3 fL] 11.4 fL (07/30/16 3:54 AM) Coagulation Most recent to 1 oldest [Reference Range]: INR [0.9-1.2] 1.3 *HI* (07/27/16 2:52 AM) PTT [25.0-35.0 28.7 seconds seconds] (07/27/16 2:52 AM) Chemistry Most recent to 1 oldest [Reference Range]: Sodium Lvl [136-144 144 mEq/L mEq/L] (07/30/16 3:54 AM) Potassium Lvl 3.4 mEq/L [3.6-5.1 mEq/L] *LOW* (07/30/16 3:54 AM) Chloride [99-109 111 mEq/L mEq/L] *HI* (07/30/16 3:54 AM) CO2 [22-32 mEq/L] 26 mEq/L (07/30/16 3:54 AM) AGAP [3-20] 7 (07/30/16 3:54 AM) BUN [4-20 mg/dL] 13 mg/dL (07/30/16 3:54 AM) Glucose Lvl [70-100 167 mg/dL mg/dL] *HI* (07/30/16 3:54 AM) Creatinine Lvl 0.59 mg/dL [0.64-1.27 mg/dL] *LOW* (07/30/16 3:54 AM) eGFR [>60] >60 1 (07/30/16 3:54 AM) Calcium Lvl 8.9 mg/dL [8.6-10.0 mg/dL] (07/30/16 3:54 AM) Albumin Lvl [3.5-4.8 1.7 gm/dL gm/dL] *LOW* (07/30/16 3:54 AM) Total Protein 5.9 gm/dL [6.1-7.9 gm/dL] *LOW* (07/30/16 3:54 AM) Globulin [1.9-4.3 4.2 gm/dL gm/dL] (07/30/16 3:54 AM) ALT [17-63 U/L] 146 U/L *HI* (07/30/16 3:54 AM) AST [15-41 U/L] 105 U/L *HI* (07/30/16 3:54 AM) Alk Phos [26-104 176 U/L U/L] *HI* (07/30/16 3:54 AM) Bili Total [0.2-1.2 0.8 mg/dL 2 mg/dL] (07/30/16 3:54 AM) Magnesium Lvl 1.9 mg/dL [1.8-2.5 mg/dL] (07/30/16 3:54 AM) Phosphorus [2.4-4.7 2.4 mg/dL 3 mg/dL] (07/30/16 3:54 AM) BNP [0-99 pg/mL] 545 pg/mL *HI* (07/15/16 7:26 AM) Lactic Acid Lvl 1.8 mEq/L [0.5-2.2 mEq/L] (07/15/16 11:19 AM) Blood Glucose, 293 mg/dL Capillary [74-106 *HI* mg/dL] (07/30/16 12:12 PM) Blood Glucose, High Capillary Out of (07/25/16 12:14 AM) Range Trig [0-150 mg/dL] 93 mg/dL (07/25/16 5:03 AM) T4 Free [0.6-1.1 0.8 ng/dL ng/dL] (07/16/16 3:50 AM) TSH with Reflex Free 8.76 T4 [0.35-5.50] *HI* (07/16/16 3:50 AM) Procalcitonin 3.57 ng/mL 4 [0.00-0.09 ng/mL] *HI* (07/15/16 7:26 AM) 1Result Comment: Multiply eGFR results by 1.21 for race. 2Result Comment: Naproxen, specifically the metabolite O-desmethylnaproxen, may cause spurious elevation in Total Bilirubin levels. 3Result Comment: High dosages of liposomal Amphotericin B (AmBisome) therapy or other drug preparations that use a liposomal envelope to facilitate drug delivery may cause falsely elevated results for phosphorus. 4Result Comment: Normal: <0.1 ng/mL (infants >72 hrs - adults) Suspected Lower Respiratory Tract Infection 0.10-0.25 ng/mL=Low likelihood for bacterial infection; Antibiotics discouraged. >0.25 ng/mL=Increased likelihood for bacterial infection; Antibiotics encouraged. Suspected Sepsis: Strongly consider initiating antibiotics in all unstable patients. 0.10-0.50 ng/mL=Low likelihood for sepsis; Antibiotics discouraged. >0.50 ng/mL=Increased likelihood for sepsis; Antibiotics encouraged. Decisions on antibiotic use should not be based solely on procalcitonin levels. If antibiotics are administered, repeat procalcitonin testing should be obtained every 2-3 days to consider early antibiotic cessation. PCT is a dynamic biomarker and most useful when trends are analyzed over time in accompaniment with other clinical data. Interpretation should be based upon clinical context and algorithms. Therapeutic Drug Monitoring Most recent to 1 oldest [Reference Range]: Vancomycin Tr 15.2 ug/mL 1 [10.0-20.0 ug/mL] (07/12/16 3:17 PM) 1Result Comment: Trough vancomycin concentrations of 15-20 mcg/mL are recommended for complicated infections such as bacteremia, osteomyelitis, endocarditis, meningitis, and hospital acquired pneumonia. Urinalysis Most recent to 1 oldest [Reference Range]: UA Color Lt Yellow (07/15/16 8:47 AM) UA Appear Sl Cloudy (07/15/16 8:47 AM) UA pH [5.0-8.0] 7.0 (07/15/16 8:47 AM) UA Leuk Est Pos 1+ [Negative] *ABN* (07/15/16 8:47 AM) UA Nitrite Negative [Negative] (07/15/16 8:47 AM) UA Protein Negative [Negative] (07/15/16 8:47 AM) UA Glucose Negative [Negative] (07/15/16 8:47 AM) UA Ketones Negative [Negative] (07/15/16 8:47 AM) UA Urobilinogen 0.2 mg/dL [<1.0 mg/dL] (07/15/16 8:47 AM) UA Bili [Negative] Negative (07/15/16 8:47 AM) UA Blood [Negative] Pos 2+ *ABN* (07/15/16 8:47 AM) UA Spec Grav 1.015 [1.003-1.030] (07/15/16 8:47 AM) Type Catheter (07/15/16 8:47 AM) UA WBC [0-4] 0-2 (07/15/16 8:47 AM) UA RBC [0-2] 0-2 (07/15/16 8:47 AM) Epithelial Cells None Seen (07/15/16 8:47 AM) UA Bacteria Rare (07/15/16 8:47 AM) UA Yeast W/Hyphae *ABN* (07/15/16 8:47 AM) Microbiology Reports TEST: Acid Fast Bacilli Culture and Smear STATUS: Order in Progress BODY SITE: SOURCE: Bronchial [place] COLLECTED DATE/TIME: 07/25/16 11:22 AM Acid Fast Smear Only No acid fast bacilli seen TEST: Bronchoscopy Culture and Smear STATUS: Auth (Verified) BODY SITE: SOURCE: Bronchial [place] COLLECTED DATE/TIME: 07/25/16 11:22 AM Bronchoscopy Culture and Smear Staphylococcus aureus large amount ORGANISM:Staphylococcus aureus TEST: Fungus Culture & Calcofluor White Stain STATUS: Order in Progress BODY SITE: SOURCE: Bronchial [place] COLLECTED DATE/TIME: 07/25/16 11:22 AM Fungus Culture & Calcofluor White Stain Bel tropicalis large amount ORGANISM:Bel tropicalis TEST: Quant. Ventilator Associated Cult/Smear STATUS: Auth (Verified) BODY SITE: SOURCE: Mini - BAL COLLECTED DATE/TIME: 07/14/16 6:00 PM Ventilator Associated Culture, Quant. Normal respiratory august isolated, including yeast TEST: Respiratory Virus Panel - PCR STATUS: Auth (Verified) BODY SITE: SOURCE: Mini - BAL COLLECTED DATE/TIME: 07/14/16 11:26 AM Respiratory Virus Panel - PCR Negative for all strains tested. . Specimen tested for the following FDA approved viral targets: Influenza A, Influenza A subtype H1, Influenza A subtype H3, Influenza A 2009 H1N1, Influenza B, Respiratory Syncytial Virus subtype A, Respiratory Syncytial Virus subtype B, Adenovirus B/E, Adenovirus C, Rhinovirus, Parainfluenza virus 1, Parainfluenza virus 2, Parainfluenza virus 3, and Human Metapneumovirus. . The following viral targets were also tested. Although not FDA approved, these targets have been validated by our laboratory for clinical diagnosis: Parainfluenza virus 4, Coronavirus 229E, Coronavirus NL63, Coronavirus HKU1, and Coronavirus OC43. TEST: Blood Culture STATUS: Auth (Verified) BODY SITE: SOURCE: Blood COLLECTED DATE/TIME: 07/14/16 11:17 AM Blood Culture No growth after 5 days of incubation. TEST: Blood Culture STATUS: Auth (Verified) BODY SITE: SOURCE: Blood COLLECTED DATE/TIME: 07/14/16 11:01 AM Blood Culture No growth after 5 days of incubation. TEST: Quant. Ventilator Associated Cult/Smear STATUS: Auth (Verified) BODY SITE: SOURCE: Mini - [place] COLLECTED DATE/TIME: 07/09/16 2:26 PM Ventilator Associated Culture, Quant. No pathogens isolated Normal respiratory august isolated (including yeast) TEST: Blood Culture STATUS: Auth (Verified) BODY SITE: SOURCE: Blood COLLECTED DATE/TIME: 07/09/16 2:05 PM Blood Culture No growth after 5 days of incubation. TEST: Blood Culture STATUS: Auth (Verified) BODY SITE: SOURCE: Blood COLLECTED DATE/TIME: 07/09/16 1:53 PM Blood Culture No growth after 5 days of incubation. Immunizations Given and Recorded Vaccine Date Status Refusal Reason influenza virus vaccine, live 03/18/11 Given Procedures Procedure Date Related Diagnosis Body Site Esophagogastroduodenoscopy with Peg 07/27/16 Placement1 Arterial puncture, withdrawal of blood for 07/25/16 diagnosis Esophagogastroduodenoscopy Biopsy2 07/25/16 Tracheostomy Percutaneous3 07/25/16 Arterial puncture, withdrawal of blood for 07/18/16 diagnosis Arterial puncture, withdrawal of blood for 07/12/16 diagnosis Arterial puncture, withdrawal of blood for 07/10/16 diagnosis Arterial puncture, withdrawal of blood for 07/09/16 diagnosis Arterial puncture, withdrawal of blood for 07/09/16 diagnosis Insertion of peripherally inserted central 07/09/16 venous catheter (PICC), without subcutaneous port or pump; age 5 years or older.. 1auto-populated from documented surgical case 2auto-populated from documented surgical case 3auto-populated from documented surgical case Social History Social History Type Response Smoking Status Former smoker; Type: Cigarettes Assessment and Plan No data available for this section
--- OUTSIDE RECORDS SUMMARY | 2016-11-10 06:29 | XMS REPORT | Referral Summary ---
Author Author [facility] Address Unknown Phone Unavailable Care Team Providers Care Mechanotherapist Name Role Phone DemetriaHumza jaffe Primary Care Physician [phone] Encounter [facility] [id number] Date(s): 12/29/15 - 12/29/15 [facility] [place] [address] [place], [place] [address] Discharge Diagnosis: Central apnea Discharge Diagnosis: Obesity hypoventilation syndrome Discharge Diagnosis: History of COPD Discharge Diagnosis: BEE (obstructive sleep apnea) Discharge Disposition: 01-Home or Self Care Attending Physician: Acosta Garcia MD Admitting Physician: Acosta Garcia MD Vital Signs Most recent to 1 oldest [Reference Range]: Peripheral Pulse 89 bpm Rate [60-100 bpm] (12/29/15 11:45 AM) Blood Pressure 140/90 mmHg [90-140/60-90 mmHg] (12/29/15 11:45 AM) SpO2 88 % (12/29/15 11:45 AM) Problem List Condition Effective Dates Status Health [...] BIPAP Machine (DME) DME Item Bipap machine /02. Inhale 15/7 cm by nasal route with [...]
--- OUTSIDE RECORDS SUMMARY | 2016-11-10 06:30 | XMS REPORT | Continuity of Care Document ---
Author Author Aida Benson [facility] Aida Benson [facility] Address Unknown Phone Unavailable Care Team Providers Care Nursing Coordinator Name Role Phone APARNA AGUILAR MD Unavailable [phone] Insurance Providers Guarantor Amee Anderson Address [address] [place] [address] Payer [employer] Policy Number [id number] Subscriber's Name Amee Anderson Relationship 01 Self / Same As Patient Group Number [id number] Group Name [employer] Effective Date 13 Payer s Medicare Policy Number [id number] Subscriber's Name Amee Anderson Relationship 01 Self / Same As Patient Effective Date 09 Chief Complaint and Reason for Visit Chief Complaint Cellulitis Reason for Visit Cellulitis Problems Active Problems Medical Problem Onset Date [...] Acute Past Problems Medical Problem Onset Date Cellulitis Unknown Generalized weakness Unknown Left foot pain Unknown [...] Tablet 06/29/15 Fluticasone Propionate (Flonase 0.05% Nasal Fe [employer]) 16 Gm Inha 1-2 Fe [employer] Nasal Daily 1 Btl 05/24/15 Furosemide (Lasix [...] for Not Specified 1 Btl as needed 06/16/16 Potassium Chloride (Potassium Chloride Er) 20 Meq [...] Propionate (Nasal) (Flonase) 0.05 % Spr, 1-2 Fe [employer] Nasal Daily for Stuffy Nose 02/12/14 Discontinued Fluticasone Propionate (Nasal) (Flonase) 0.05 % Spr, 2 Fe [employer] Nasal Daily 10/04 Discontinued Furosemide (Lasix 80 [...] Four Times Daily 01/01 Discontinued Polyethylene Glycol (Glycolax) 3,350 Nf Pow, [...] Applicable Not Applicable Smoking Status Former smoker 06/19/2016 4:33pm Not Applicable Not Applicable Query Response Start Date Stop Date Smoking Status Former smoker Hospital Discharge Instructions No hospital discharge instructions. Plan of Care Discharge Date 06/19/16 5:18pm Disposition 01 HOME, SELF-CARE Condition at Discharge Improved/Stable Prescriptions See Medication Section Referrals APARNA AGUILAR MD Address: [address] [place] [phone] Additional Instructions/Education Patient is safe to be followed up with your doctor in 1-2 days if needed. Please take Bactrim for the infection. Please call primary care doctor or return to emergency department immediately if fever, worsening infection, or anything concerning. Functional Status No functional status results. Allergies, Adverse Reactions, Alerts Allergen Type Severity Reaction Status Last Updated Allopurinol ([id number]) Allergy Unknown Active 06/16/15 Codeine ([id number]) Adverse Reaction Unknown Active 06/16/15 Metoclopramide ([id number]) Allergy Unknown Active 06/16/15 Venlafaxine ([id number]) Allergy Unknown Active 06/16/15 Celecoxib ([id number]) Adverse Reaction Unknown Active 06/16/15 Cephalosporins ([id number]) Allergy Unknown Active 06/16/15 Immunizations Immunization Event Date Type Not Given Reason Dose Number Lot Number Machine Stacker Influenza Vaccine, Inactivated 03/24/12 Administered 1 [id number] [employer] Influenza Vaccine, Inactivated 04/09/13 Administered 2 [id number] SANOFI Pneumococcal Polysaccharide Vaccine 23 07/30/05 Administered 1 Influenza, high dose, seasonal 03/17/15 Historical 1 Query Response on File Recorded Date/Time Hx Hepatitis A Vaccination No 12/08/15 3:18pm Vital Signs Acute Vital Signs Vital Response Date/Time Blood Pressure 86/71 mm Hg 06/19/2016 5:18pm Blood Pressure Mean 74 mm Hg 11/27/2013 1:24pm Blood Pressure Mean 76 mm Hg 06/19/2016 5:18pm Temperature (Fahrenheit) 98.4 degrees F (96.0 - 99.9) 06/19/2016 4:28pm Temperature (Calculated Celsius) 36.65754 degrees C 06/19/2016 4:28pm Temperature (Calculated Celsius) 36.03863 degrees C (36.4 - 37.5) 11/27/2013 1:24pm Temperature (Fahrenheit) 98.4 degrees F (96.0 - 99.9) 11/27/2013 1:24pm Temperature Source Oral 12/10/2015 12:12pm Temperature Source Oral 06/19/2016 4:28pm Temp 98.4 degrees F (96.0 - 99.9) 11/27/2013 1:22pm Temperature (Calculated Celsius) 36.15538 degrees C 11/27/2013 1:22pm Pulse Pulse Rate (adult) 62 bpm (60 - 100) 12/10/2015 12:12pm Pulse Rate (adult) 115 bpm (60 - 100) 11/27/2013 1:24pm Pulse Rate: ED 85 bpm 06/19/2016 5:18pm Respiratory Rate 18 breaths per minute (10 - 20) 06/19/2016 5:18pm Respiratory Rate 14 bpm (10 - 20) 11/27/2013 1:24pm Height (Feet) 5 ft 06/19/2016 4:28pm Height (Inches) 6.0 in. 06/19/2016 4:28pm Weight (Pounds) 274.0 lbs 06/19/2016 4:28pm Height 5 ft 6 in 06/19/2016 4:28pm Weight 274 lb 06/19/2016 4:28pm Body Mass Index 44.2 kg/m^2 06/19/2016 4:28pm Ambulatory Vital Signs Vital Response Date/Time Height [...] 02/22/2015 11:00am 2014 11:56am Results <230 ng/mL reynoldild a negative predictability for DVT or PE [...] H 0.0-100.0 11/14/2015 11:18am 1:37pm Performed at: [address] [id number] [employer] Charging Machine Operator: ROJAS Whitaker MD, Phone: [phone] Bedside Glucose 120 mg/dL 70-120 12/10/2015 10:34am 12/10/2015 10:38am Notify Nurse Glycated Hemoglobin 6.0 % 4.0-6.0 12/08/2015 12:12pm 12/09/2015 3:53pm Lactic Acid Level 1.0 mmol/L 0.5-2.2 12/08/2015 12:40pm 12/08/2015 1: 03pm B-Type Natriuretic Peptide 597 pg/mL H 15-100 12/08/2015 12:12pm 2015 4:27pm Hemoglobin A1c 6.6 % H 4.8-5.6 04/17/2016 11:35am 04/18/2016 10:06am Performed at: [address] [id number] [employer] Machine Operator: ROJAS Whitaker MD, Phone: [phone] Magnesium Level 2.2 mg/dL 1.6-2.3 04/17/2016 11:35am 04/18/2016 8:01am Performed at: [address] [address], [place], [place] [id number] [employer] Charging Machine Operator: ROJAS Whitaker MD, Phone: [phone] White Blood Count 4.1 x10E3/uL 3.4-10.8 04/17/2016 [...] 11: 35am 04/18/2016 6:08am Performed at: - [facility] [address], [place], [place] [id number] [employer] Charging Machine Operator: ROJAS Whitaker MD, Phone: [phone] Glucose Level 90 mg/dL 65-99 04/17/2016 11:35am [...] IU/L 0-44 04/17/2016 11:35am 7:18am Performed at: [facility] [address] [address], [place], [place] [id number] Furn[employer] Charging Machine Operator: ROJAS Whitaker MD, Phone: [phone] EGFR IF NONAFRICN AM 72 >59 04/17/2016 [...] NEGATIVE 05/16/2016 3:50pm 05/16/2016 4:17pm Urine Specific [place] 1.015 1.005-1.030 05/16/2016 3:50pm 2015 4:17pm Urine [...] Blood Urea Nitrogen 23 mg/dL 8-25 05/16/2016 3:2005/16/2016 3:46pm Creatinine 1.54 mg/dL 0.9-1.6 05/16/2016 3:20pm 05/16/2016 3:46pm Glomerular Filtration Rate Calc 44.26 mL/min 05/16/2016 3:20pm 2015 3:46pm MULTIPLY RESULT BY 1.210 IF THE PATIENT IS -BULGARIAN Units are mL/min/1.73 m2 > 60 Normal kidney function 30-59 Moderately decreased kidney function 15-29 Severely decreased kidney function <15 End-stage kidney failure BUN/Creatinine Ratio 14.9 05/16/2016 3:20pm 05/16/2016 3:46pm Sodium Level 129 mEq/L L 133-145 05/16/2016 3:20pm 05/16/2016 3:46pm Potassium Level 4.0 mEq/L 3.5-5.1 05/16/2016 3:20pm 05/16/2016 3:46pm Chloride Level 95 mEq/L L 98-116 05/16/2016 3:2005/16/2016 3:46pm Carbon Dioxide Level 30 mEq/L 22-34 05/16/2016 3:2005/16/2016 3: 46pm Anion Gap 8.0 6-13 05/16/2016 3:20pm 05/16/2016 3:46pm Calcium Level 8.5 mg/dL 8.2-10.6 05/16/2016 3:20pm 05/16/2016 3:46pm Magnesium Level 2.0 mg/dL 1.3-2.5 05/16/2016 3:2005/16/2016 3:46pm Total Protein 7.6 gm/dL 6.0-8.4 05/16/2016 [...] Discharge/Depart Date Attending Provider Departed Emergency Room [facility] 06/19/16 4:26pm 5:18pm RAISA SNYDER M.D. Office Visit APARNA AGUILAR 06/13/16 11:15am APARNA AGUILAR MD Registered Practice [facility] AGUILAR 06/13/16 11:15am APARNA AGUILAR MD Registered [facility] 05/21/16 10:53am APARNA AGUILAR MD Office Visit APARNA AGUILAR 05/21/16 10:30am APARNA AGUILAR MD Departed Emergency Room [facility] 05/16/16 2:39pm 6:05pm JOBY OLEARY M.D. Office Visit APARNA AGUILAR 04/30/16 3:30pm APARNA AGUILAR MD Departed Emergency Room [facility] 04/29/16 10:47am 11:20am AMANDA FIELDS M.D. Registered Clinic [facility] 04/17/16 1:18pm APARNA AGUILAR MD Office Visit [facility] AGUILAR 04/17/16 11:15am APARNA AGUILAR MD Office Visit [facility] AGUILAR 03/20/16 11:30am APARNA AGUILAR MD Office Visit [facility]NA AGUILAR 03/06/16 11:30am APARNA AGUILAR MD Registered Clinic Aida Benson [facility] 02/20/16 11:41am APARNA AGUILAR MD Office Visit [facility] 02/20/16 11:15am APARNA AGUILAR MD Office Visit [facility] 02/09/16 10:30am HARPAL ESPOSITO PA-C Registered Practice [facility] 02/09/16 10:30am HARPAL ESPOSITO PA-C Registered Clinic Aida Benson [facility] 02/09/16 10:30am HARPAL ESPOSITO PA-C Registered Referred Aida Benson [facility] 02/03/16 12:04pm THI CHUNG M.D. Office Visit [facility] 02/03/16 11:00am THI CHUNG M.D. Registered Clinic Aida Benson [facility] 02/03/16 11:00am THI CHUNG M.D. Office Visit [facility] 01/31/16 9:45am APARNA AGUILAR MD Office Visit [facility] 01/13/16 11:15am APARNA AGUILAR MD Registered Referred Aida Benson [facility] 01/13/16 9:30am SEGUNDO, DOCTOR Office Visit [facility] 12/21/15 11:15am APARNA AGUILAR MD Office Visit [facility] 12/15/15 10:15am APARNA AGUILAR MD Registered Clinic Aida Benson [facility] 12/15/15 10:02am APARNA AGUILAR MD Discharged Inpatient Aida Benson [facility] 12/09/15 10:28am 12/10/15 1:30pm STU TERRELL M.D. Office Visit [facility] 12/01/15 10:30am APARNA AGUILAR MD Registered Referred Aida Benson [facility] 11/17/15 10:41am APARNA AGUILAR MD Office Visit [facility] 11/17/15 9:30am APARNA AGUILAR MD Registered Clinic Aida Benson [facility] 11/14/15 11:45am APARNA AGUILAR MD Office Visit [facility] 11/14/15 11:00am AAPRNA AGUILAR MD Registered Referred [facility] 11/09/15 11:08am APARNA AGUILAR MD Office Visit [facility] 11/09/15 11:00am APARNA AGUILAR MD Departed Emergency Room [facility] 11/03/15 2:52pm 4:00pm AMANDA FIELDS M.D. Office Visit [facility] 10/28/15 11:30am APARNA AGUILAR MD Office Visit [facility] 10/13/15 11:15am APARNA AGUILAR MD Departed Emergency Room [facility] 09/30/15 4:24pm 6:42pm SANIA PACKER DO Office Visit [facility] 09/08/15 11:00am APARNA AGUILAR MD [facility] 09/08/15 11:00am APARNA AGUILAR MD [facility] 08/16/15 12:00pm OTHER, DOCTOR Office Visit [facility] JE[facility] 08/16/15 11:15am APARNA AGUILAR MD Office Visit [facility] 07/25/15 2:00pm APARNA AGUILAR MD [facility] 07/06/15 1:46pm APARNA AGUILAR MD Office Visit [facility] 07/06/15 1:45pm APARNA AGUILAR MD Discharged Inpatient (obs) [facility] 06/16/15 1:19pm 4:13pm SANIA VAUGHAN MD Office Visit [facility] 06/15/15 11:30am APARNA AGUILAR MD Office Visit [facility] 05/31/15 9:45am APARNA AGUILAR MD Discharged Inpatient (obs) [facility] 05/23/15 8:13am 07/08 12:14pm SANIA VAUGHAN MD Registered Referred Aidaeleni Benson [facility] 05/10/15 11:13am APARNA AGUILAR MD Office Visit [facility] 05/10/15 10:45am APARNA AGUILAR MD Office Visit [facility] 04/26/15 10:15am APARNA AGUILAR MD Office Visit [facility] 04/20/15 1:15pm APARNA AGUILAR MD Office Visit [facility] 04/06/15 10:45am APARNA AGUILAR MD Office Visit [facility] 03/24/15 10:30am APARNA AGUILAR MD Discharged Inpatient (obs) Aida Benson [facility] 03/16/15 3:50pm 5:40pm TATIANA HAWK M.D. Office Visit [facility] 03/15/15 10:45am APARNA AGUILAR MD Registered Referred Aida Benson [facility] 02/23/15 12:47pm APARNA AGUILAR MD Departed Clinic [facility] 02/22/15 11:13am 02/22/15 12: 02pm GIOVANI MONTANEZ MD Registered Referred Aida Benson [facility] 02/22/15 10:57am APARNA AGUILAR MD Office Visit [facility] 02/22/15 10:45am APARNA AGUILAR MD Office Visit [facility] 02/09/15 10:15am APARNA AGUILAR MD Departed Clinic Aida Benson [facility] 01/18/15 11:27am 01/18/15 2: 10pm TATIANA HAWK M.D. Office Visit [facility] T[facility]CIOSS 01/18/15 11:00am APARNA AGUILAR MD Discharged Inpatient (obs) Aida Benson [facility] 01/09/15 11:45am 5:55pm TATIANA HAWK M.D. Departed Emergency Room Aidaeleni Benson [facility] 12/30/14 11:10am 1:40pm CLARISA ALVES M.D. Office Visit [facility] 12/27/14 11:15am APARNA AGUILAR MD Office Visit [facility] 12/20/14 1:15pm APARNA AGUILAR MD Registered Referred [facility] 12/16/14 10:00am APARNA AGUILAR MD Office Visit [facility] TURCIOSS 12/16/14 9:45am APARNA AGUILAR MD Office Visit [facility] 12/09/14 10:45am APARNA AGUILAR MD Departed Emergency Room [facility] 11/30/14 9:15am 11:05am JAMES WHITE M.D. Office Visit [facility]NA TURCIOSS 11/22/14 9:45am APARNA AGUILAR MD Office Visit [facility]CI[facility] 11/05/14 11:30am APARNA AGUILAR MD Departed Emergency Room [facility] 11/03/14 11:29am 2:37pm NICHOLAS LOZOYA M.D. Departed Clinic [facility] 10/26/14 10:38am 10/26/14 11: 49am GIOVANI MONTANEZ MD Office Visit [facility]NA Burks [facility] 10/26/14 10:00am APARNA AGUILAR MD Departed Emergency Room [facility] 10/21/14 10:14am 11:43am SANIA PACKER DO Office Visit APARNA Vitaliy JEFF 10/13/14 1:00pm APARNA AGUILAR MD Departed Clinic [facility] 10/12/14 10:45am 10/12/14 11: 11am GIOVANI MONTANEZ MD Departed Clinic [facility] 09/28/14 10:32am 09/28/14 12: 19pm GIOVANI MONTANEZ MD Office Visit [facility] TURCIOSS 09/28/14 10:15am APARNA AGUILAR MD Office Visit [facility]CIOSS 09/15/14 11:15am APARNA AGUILAR MD Office Visit [facility] TURCIOSS 09/01/14 10:45am APARNA AGUILAR MD Departed Clinic [facility] 08/31/14 10:54am 08/31/14 11: 20am GIOVANI MONTANEZ MD Office Visit [facility] 08/18/14 10:45am APARNA AGUILAR MD Office Visit [facility]CIOSS 08/10/14 10:30am APARNA AGUILAR MD Discharged Inpatient [facility] 08/04/14 4:51pm 08/07/14 5 :05pm TATIANA HAWK M.D. Registered Referred Aida Benson [facility] 08/03/14 12:03pm APARNA AGUILAR MD Office Visit [facility] TURCIOSS 08/03/14 11:15am APARNA AGUILAR MD Departed Clinic [facility] 08/03/14 10:26am 08/03/14 11: 34am GIOVANI MONTANEZ MD Office Visit [facility]NA TURCIOSS 07/22/14 10:45am APARNA AGUILAR MD Discharged Inpatient [facility] 07/09/14 11:21am 07/12/14 2:45pm TATIANA HAWK M.D. Registered Referred [facility]ida [facility] 07/08/14 10:00am APARNA AGUILAR MD Office Visit APARNA TURCIOSS 07/08/14 9:00am APARNA AGUILAR MD Departed Clinic [facility] 07/06/14 10:21am 07/06/14 11: 19am GIOVANI MONTANEZ MD Office Visit APARNA DELUCAHNS 07/02/14 10:30am APARNA AGUILAR MD Discharged Inpatient Aida Ramon [facility] 06/15/14 1:11am 06/16/14 11:50am TATIANA HAWK M.D. Departed Clinic [facility]idaeleni [facility] 06/14/14 11:24am 06/14/14 1: 09pm APARNA AGUILAR MD Office Visit [facility]NA TURCIOSS 06/14/14 11:00am APARNA AGUILAR MD Office Visit [facility] TURCIOSS 06/02/14 11:15am APARNA AGUILAR MD Discharged Inpatient Aidaeleni Benson [facility] 05/21/14 10:17pm 05/24/14 11:40am TATIANA HAWK M.D. Office Visit [facility]NA TURCIOSS 04/26/14 8:45am APARNA AGUILAR MD Registered Referred Aida Benson [facility] 04/20/14 2:16pm APARNA AGUILAR MD Office Visit [facility]NA R JEFF 04/20/14 1:30pm APARNA AGUILAR MD Departed Clinic Aidaeleni Benson [facility] 04/20/14 11:00am 04/20/14 11: 57am GIOVANI MONTANEZ MD Office Visit APARNA TURCIOSS 04/14/14 11:15am APARNA AGUILAR MD Office Visit [facility]NA R JEFF 04/01/14 10:30am APARNA AGUILAR MD Departed Clinic Aidaeleni Benson [facility] 03/23/14 10:53am 03/23/14 12: 39pm GIOVANI MONTANEZ MD Office Visit APARNA Burks [facility] 03/18/14 10:15am APARNA AGUILAR MD Office Visit [facility]ARNA R JEFF 03/11/14 11:15am APARNA AGUILAR MD Departed Clinic Aidaeleni Benson [facility] 03/09/14 11:00am 03/09/14 11: 22am GIOVANI MONTANEZ MD Discharged Inpatient (obs) Aida Benson [facility] 03/06/14 8:25pm 2:40pm TATIANA HAWK M.D. Office Visit [facility] TURCIOSS 03/05/14 11:15am APARNA AGUILAR MD Office Visit [facility]NA TURCIOSS 03/01/14 9:15am APARNA AGUILAR MD Registered Referred Aida Benson [facility] 02/26/14 10:23am APARNA AGUILAR MD Office Visit [facility]NA R JEFF 02/26/14 10:00am APARNA AGUILAR MD Departed Clinic Aida Benson [facility] 02/23/14 11:35am 02/23/14 12: 01pm GIOVANI MONTANEZ MD Discharged Inpatient Aida B[facility] 02/16/14 8:34pm 02/19/14 4 :30pm TATIANA HAWK M.D. Discharged Inpatient Aida Benson [facility] 02/12/14 2:30am 02/15/14 11:00am APARNA AGUILAR MD Departed Emergency Room Aida Benson [facility] 02/08/14 10:15am 1:28pm CAROLINA DUMONT M.D. Office Visit APARNA AGUILAR 02/02/14 2:15pm APARNA AGUILAR MD Departed Clinic Aidaeleni Benson [facility] 02/02/14 1:31pm 02/02/14 2: 25pm GIOVANI MONTANEZ MD Office Visit AP[facility]NA AGUILAR 01/21/14 10:00am APARNA AGUILAR MD Departed Clinic Aidaeleni Benson [facility] 01/12/14 11:43am 01/12/14 12: 38pm GIOVANI MONTANEZ MD Office Visit APARNA AGUILAR 01/07/14 10:00am APARNA AGUILAR MD Departed Clinic Aidaeleni Benson [facility] 12/22/13 12:49pm 12/22/13 1: 23pm GIOVANI MONTANEZ MD Office Visit AP[facility]NA AGUILAR 12/22/13 11:30am APARNA AGUILAR MD Office Visit [facility]NA TURCIOSS 12/10/13 11:00am [facility]NA AGUILAR MD [facility]01[facility] 3:00pm APARNA AGUILAR MD Departed Clinic [facility] 12/01/13 2:25pm 12/01/13 2: 50pm GIOVANI MONTANEZ MD Discharged Inpatient (obs) Aida Benson [facility] 11/27/13 2:30am 01/04 10:54am APARNA AGUILAR MD Office Visit [facility] AGUILAR 11/26/13 10:45am APARNA AGUILAR MD Office Visit [facility]NA AGUILAR 11/12/13 11:30am APARNA AGUILAR MD Registered Referred Aida Benson [facility] 11/05/13 9:28am APARNA AGUILAR MD Office Visit [facility] AGUILAR 11/05/13 9:15am APARNA AGUILAR MD Discharged Inpatient Aida Benson [facility] 10/30/13 12:37pm 11/01/13 10:45am APARNA AGUILAR MD Office Visit [facility]NA AGUILAR 10/27/13 10:45am APARNA AGUILAR MD Office Visit [facility]NA AGUILAR 10/06/13 11:15am APARNA AGUILAR MD Office Visit [facility]NA AGUILAR 09/24/13 10:00am APARNA AGUILAR MD Recent Diagnosis
--- OUTSIDE RECORDS SUMMARY | 2016-11-10 06:30 | XMS REPORT | Referral Summary ---
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 Discharge Disposition: 01-Home or Self Care Attending Physician: Elena Barros Admitting Physician: Elena Barros Vital Signs Most recent to 1 oldest [Reference Range]: Peripheral Pulse 84 bpm Rate [60-100 bpm] (07/07/15 10:54 AM) Blood Pressure 116/68 mmHg [90-140/60-90 mmHg] (07/07/15 10:54 AM) SpO2 92 % (07/07/15 10:54 AM) Problem List Condition Effective Dates Status [...] Office Visit Note Author: Elena Barros Date: 07/07/15 Assessment/Plan 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 Residual daytime sleepiness likely secondary topoor sleep hygiene andalternating sleep schedule in addition tosedating medications. We discussed sleep hygiene and setting a sleep schedule, reducing daytime naps to no more than an hour in order to try and condense sleep at night, during desiredsleeping hours.Download shows some residualhypopneasand a leak which sounds to be oral in origin as it has been witnessed. Will sendan order to [employer] for a chinstrap which he is to wear. Continue ASV and oxygen with all sleep. Consider overnight oximetry on his current ASV and oxygen settings in the future once the leak is controlled. -He is complying and benefitting from treatment. -Avoid driving , partaking in hazardous activities, or operating heavy machinery if drowsy. -Continue appropriate cleaning of the machine/humidifier and update of all supplies including mask , tubing , and filters . -Return for follow-up in 4-6 months for re-evaluation . Return/call sooner if any problems arise in the meantime.
--- OUTSIDE RECORDS SUMMARY | 2016-11-10 06:30 | XMS REPORT | Referral Summary ---
Author Author [facility] Organization [facility] Address Unknown Phone Unavailable Care Team Providers Care Security Intelligence Analyst Name Role Phone Humza Augustin Primary Care Physician [phone] Encounter Date(s): 12/29/15 - 12/29/15 [facility], [address] [place], [place] [address] Discharge Disposition: 01-Home or Self Care Attending Physician: Acosta Garcia MD Admitting Physician: Acosta Garcia MD Vital Signs No data available for this section Problem List Condition Effective Dates Status Health [...] BIPAP Machine (DME) DME Item Bipap machine w/02. Inhale 15/7 cm by nasal route with [...] Cigarettes Assessment and Plan Extracted from: Title: BIPAP ASV PRESSURE CHANGE Author: Stacey Phan [employer]PECT[employer] Date: 12/29/15 adjust ASV settings EPAP 12cm, PS min 3cm, PS max 13cm per DrThomas
--- OUTSIDE RECORDS SUMMARY | 2016-11-10 06:31 | XMS REPORT | Continuity of Care Document ---
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 Name Role Phone APARNA AGUILAR MD Unavailable [phone] Insurance Providers Payer Name Policy Number Subscriber Name Relationship [employer] Medicare [id number] Amee Guillen 01 Self / Same As Patient For Life [id number] Amee Guillen Self / Same As Patient [...] Active Hypoxia Unknown Active Hypotension Unknown Active Medications Medication Dose Route Sig [...] 40 Mg PO THREE TIMES A DAY For CHRONIC PAIN 0 Qty Active Sertraline Hcl 100 Mg PO DAILY [...] 05/27/13 08/25/13 Discontinued Fluticasone Propionate (Nasal) 2 [place] NA DAILY 1 Qty 05/27/13 Discontinued Levofloxacin [...] PO TWICE A DAY For replacement 11/27/13 Active Ondansetron 4 Mg PO DAILY PRN NAUSEA [...] Qty 02/08/14 Active Fluticasone Propionate (Nasal) 1-2 [place] NA DAILY For STUFFY NOSE 1 Qty [...] as needed For ANXIETY 60 Qty Active Insulin Aspart 1-4 Units SC THREE TIMES DAILY BEFORE MEALS PRN AFTER TESTING NEEDED 07/09/14 Active Oxycodone HCl 40 Mg PO THREE TIMES A DAY PRN FOR PAIN IF NEEDED 07/09 Active Ibuprofen 800 Mg PO THREE TIMES A DAY PRN MUSCLE PAIN & INFLAMMATION 07/09/14 Active Insulin Glargine 20 Unit SC BEDTIME For DIABETES 5 Qty 07/22/14 Active Social History Social History Problem Response Recorded Date/Time Smoking Status Former smoker 07/12/2014 2:23pm Query Response Start Date Stop Date Smoking Status Former smoker Hospital Discharge Instructions No hospital discharge instructions. Plan of Care Prescriptions See Medications Section Functional Status No functional status results. Allergies, Adverse Reactions, Alerts Allergen Type Severity Reaction Status Last Updated Allopurinol Allergy Unknown Active 05/26/14 Codeine Allergy Unknown Active 05/26/14 Metoclopramide Allergy Unknown Active 05/26/14 Venlafaxine Allergy Unknown Active 05/26/14 Celecoxib Allergy Unknown Active 05/26/14 Cephalosporins Allergy Unknown Active 07/12/14 Immunizations Name Given Type Hx Hepatitis A Vaccination No Historical Td (adult), adsorbed 02/17/14 Administered Td (adult), adsorbed 02/17/14 Administered Influenza, high dose seasonal 03/07/14 Administered Influenza, high dose seasonal 03/07/14 Administered Vital Signs Acute Vital Signs Vital Response Date/Time Blood Pressure 128/84 mm Hg Blood Pressure Mean 74 mm Hg Blood Pressure Mean 84 mm Hg Temperature (Fahrenheit) 97.8 degrees F (96.0 - 99.9) Temperature (Calculated Celsius) 37.17295 degrees C Temperature (Calculated Celsius) 36.33677 degrees C (36.4 - 37.5) Temperature (Fahrenheit) 98.4 degrees F (96.0 - 99.9) Temperature Source Oral Temperature Source Oral Temp 98.4 degrees F (96.0 - 99.9) Temperature (Calculated Celsius) 36.55974 degrees C Pulse Pulse Rate (adult) 80 bpm (60 - 100) Pulse Rate (adult) 115 bpm (60 - 100) Pulse Rate: ED 100 bpm Respiratory Rate 18 breaths per minute (10 - 20) Respiratory Rate 14 bpm (10 - 20) Height (Feet) 5 ft Height (Inches) 6.0 in. Weight (Pounds) 258.8 lbs Height 5 ft 5 in Weight 266 lb Body Mass Index 44.0 kg/m^2 Ambulatory Vital Signs Vital Response Date/Time Height 5 ft 5 in 07/22/2014 10:54am Weight 267 lbs 07/22/2014 10:54am Blood Pressure 98/62 mm Hg 07/22/2014 10:54am Body Surface Area 2.42 m2 07/22/2014 10:54am Body Mass Index 44.4 kg/m2 07/22/2014 10:54am Results Test Source Date Result Interp. Ref. [...] COMMENTS?NEW ADMIT SERUM AMMONIA,SERUM MAG Anion Gap July 09, 2014 6:00am 10.2 N 6-13 Anisocytosis December 08, 2012 8:20am [...] N 0-2 COMMENT: 05 B-Type Natriuretic Peptide July 09, 2014 6:00am 203 pg/mL H 15-100 BUN/Creatinine Ratio July 09, 2014 6:00am 26.3 Band Neutrophils December 08, 2012 8:20am 2.0 % N 0-7 COMMENT: 04 Basophils # (Auto) July 12, 2014 5:15am 0.1 K/uL N 0-0.2 Basophils (%) (Auto) July 12, 2014 5:15am 0.9 % N 0-1 Basophils (Manual) February 14, 2014 6:05am 0.0 % N 0-1 Bedside Blood Urea Nitrogen June 06, 2009 8:27am 44 mg/dL H 8-25 Bedside Chloride June 06, 2009 8:27am 103 mEq/L N 98-116 Bedside Creatinine June 06, 2009 8:27am 1.6 mg/dL N 0.9-1.6 Bedside Glucose July 12, 2014 10:08am 152 mg/dL H 70-120 Bedside Hematocrit June 06, [...] 83 mmHg L 89-100 Blood Urea Nitrogen July 09, 2014 6:00am 26 mg/dL H 8-25 C-Reactive Protein June 25, 2012 10:20pm 8.0 mg/L <6.0 COMMENT: 05 Calcium Level July 09, 2014 6:00am 8.7 mg/dL N 8.2-10.6 Carbon Dioxide Level July 09, 2014 6:00am 32 mEq/L N 22-34 Chloride Level July 09, 2014 6:00am 102 mEq/L N 98-116 Cholesterol Level February 20, 2002 8:12am 130 mg/dL N 120-200 Creatine Kinase MB May 21, 2014 7:40pm 4.7 ng/mL N 0.0-6.0 Creatinine July 09, 2014 6:00am 0.99 mg/dL N 0.9-1.6 Creatinine Clearance December 21, 1998 3:22pm 42.4 ml/min L 72-141 D-Dimer January 26, 2004 7:15am Positive ug/mL <0.20 COMMENTS? ROOM 3 D-Dimer Quantitative (PE/DVT) March 06, 2014 5:00pm 363 ng/mL < 230 Results <230 ng/mL yeamos a negativepredictability for DVT or PE D-Dimer Titer January 26, 2004 7:15am 0.20-0.40 ug/mL <0.20 COMMENTS? ROOM 3 Digoxin Level September 13, 1998 9:42am 2.3 ng/ml PH Eosinophils # (Auto) July 12, 2014 5:15am 0.7 K/uL N 0-0.8 Eosinophils (%) (Auto) July 12, 2014 5:15am 13.7 % H 0-7.0 Eosinophils (Manual) February 14, 2014 6:05am 12.0 % H 0-7.0 Erythrocyte Sedimentation Rate May 29, 2010 1:10pm 7 mm/hr N 0-20 Folate August 06, 2000 6:50am See separate report ng/ml Free Thyroxine Index August 06, 2000 6:50am 5.10 N 3.6-14.0 Globulin July 09, 2014 6:00am 3.3 gm/dL H 2.0-3.0 Glomerular Filtration Rate Calc July 09, 2014 6:00am > 60.00 mL/min MULTIPLY RESULT BY 1.210 IF THE PATIENT IS -AMERICANUnits are mL/min /1.73 m2 > 60 Normal kidney function 30-59 Moderately decreased kidney function 15-29 Severely decreased kidney function <15 End-stage kidney failure Glucose Level July 05, 1999 4:30pm 163 mg/dL H 65-115 HDL Cholesterol February 20, 2002 8:12am 48 mg/dL N 35-80 HIV-1 Antibody December 11, 2000 10:45am Negative NEGATIVE COMMENTS? EMPLOYEE NEEDLE STICK DURING SURGICAL PROCEDURE - PT IN RR NOW Hematocrit July 12, 2014 5:15am 46.3 % N 40.0-54.0 Hemoglobin July 12, 2014 5:15am 15.0 g/dL N 14.0-18.0 Hepatitis B Surface Antibody [...] 0-0.4 COMMENT: 04 Immature Granulocyte # (Auto) July 12, 2014 5:15am 0.02 K/uL N 0- 0.40 Immature Granulocyte % (Auto) July 12, 2014 5:15am 0.4 % N 0-0.5 InFluenza Virus Type A (H1N1) (PCR) July 09, 2014 6:15am Not detected NEGATIVE Influenza Virus Type A (PCR) July 09, 2014 6:15am Negative NEGATIVE Influenza Virus Type B (PCR) July 09, 2014 6:15am Negative NEGATIVE LDL Cholesterol February 20, 2002 8:12am 59 mg/dL N 25-160 Lab Scanned Report April 29, 2014 8:54am Lab Scanned Report [id number] Lactate Dehydrogenase September 28, 1998 4:10pm 152 U/L N COMMENTS? CARDIAC ENZYMES NOW Lactic Acid Level May 21, 2014 7:40pm 1.2 mmol/L N 0.5-2.2 Lipase May 21, 2014 7:40pm 17 U/L N 8-57 Lymphocytes # (Auto) July 12, 2014 5:15am 1.8 K/uL N 0.9-5.2 Lymphocytes (%) (Auto) July 12, 2014 5:15am 33.2 % N 16.0-44.0 Lymphocytes (Manual) February 14, 2014 6:05am 26.0 % N 21.0-51.0 Macrocytosis December 08, 2012 8:20am 2+ COMMENT: 04 Magnesium Level August 27, 2011 10:20am 1.7 mg/dL N 1.3-2.5 Mean Corpuscular Hemoglobin July 12, 2014 5:15am 30.2 pg N 26.0-33.0 Mean Corpuscular Hemoglobin Concent July 12, 2014 5:15am 32.4 g/dL N 31.0-36.0 Mean Corpuscular Volume July 12, 2014 5:15am 93.2 fL N 80.0-94.0 Mean Platelet Volume July 12, 2014 5:15am 10.6 fL N 7.0-11.0 Metamyelocytes January 22, 2008 7:03pm 2.0 % Microcytosis November 03, 2006 8:55am 1+ COMMENTS?ROOM 2 Monocytes # (Auto) July 12, 2014 5:15am 0.8 K/uL N 0.16-1.0 Monocytes (%) (Auto) July 12, 2014 5:15am 14.6 % H 2.0-9.0 Monocytes (Manual) February 14, 2014 6:05am 16.0 % H 2.0-9.0 Myelocytes January 22, 2008 7:03pm 1.0 % Neutrophils February 14, 2014 6:05am 46.0 % N 42.0-75.0 Neutrophils # (Auto) July 12, 2014 5:15am 2.0 K/uL N 1.9-8.0 Neutrophils (%) (Auto) July 12, 2014 5:15am 37.2 % L 42.0-75.0 Nucleated Red Blood Cells # July 12, 2014 5:15am 0.00 K/uL N 0.0- 0.012 Nucleated Red Blood Cells % July 12, 2014 5:15am 0.0 /100WBC N 0-0 Ovalocytes January 22, 2006 9:55pm 1+ COMMENTS?ROOM 5 Platelet Count July 12, 2014 5:15am 134 K/uL N 130-400 Platelet Estimate February 14, 2014 6:05am Normal NORMAL Poikilocytosis January 22, 2006 9:55pm 1+ COMMENTS?ROOM 5 Polychromasia August 10, 2006 10:30pm 1+ COMMENTS?ROOM 2 Potassium Level July 09, 2014 6:00am 4.2 mEq/L N 3.5-5.1 Prealbumin May 30, 2010 [...] 11.5 SECONDS N 9.0-12.0 RDW Standard Deviation July 12, 2014 5:15am 47.9 fL H 35.1-43.9 Random Glucose July 09, 2014 6:00am 152 mg/dL H 65-115 Rapid Troponin I August 28, 2010 3:40pm 0.00 ng/mL N 0.00-0.03 < 0.03 ng/mL=NORMAL0.04 - 0.50 ng/mL=CARDIAC CONDITION >0.50 ng/mL=SUGGESTS AMI Red Blood Cell Morphology August 27, 2002 7:35pm Normal Red Blood Count July 12, 2014 5:15am 4.97 M/uL N 4.60-5.40 Red Cell Distribution Width July 12, 2014 5:15am 14.0 % N 11.5-14.5 Sodium Level July 09, 2014 6:00am 140 mEq/L N 133-145 Stomatocytes December 08, [...] Synovial Fluid WBC September 27, 1998 12:00am 31794.0 /uL PH Target Cells August 05, 2001 [...] 27.8 % N 24.0- 38.9 Troponin I July 09, 2014 6:00am 0.01 ng/mL N 0.0-0.02 Uric Acid August [...] NONE SOURCE: URINE, CLEAN CATCH Urine Specific [place] July 09, 2014 6:35am 1.015 1.005-1.030 SOURCE: [...] See separate report pg/ml White Blood Count July 12, 2014 5:15am 5.3 K/uL N 5.0-10.0 Whole Blood Anion Gap June 06, 2009 8:27am 11 N 10-20 Blood Culture Blood July 09, 2014 6:50am No growth. Body Fluid Culture Synovial Fluid [...] Encounter Location Date/Time Office Visit APARNA AGUILAR 08/03/14 11:15am Registered Clinic [facility] 08/03/14 10:26am Office Visit APARNA AGUILAR 07/22/14 10:45am Discharged Inpatient [facility] 07/09/14 11:21am Office Visit APARNA Vitaliy JEFF 07/08/14 9:00am Registered Clinic [facility] 07/06/14 10:21am Office Visit APARNA R JEFF 07/02/14 10:30am Discharged Inpatient [facility] 06/15/14 1:11am Registered Clinic [facility] 06/14/14 11:24am Office Visit APARNA R JEFF 06/14/14 11:00am Office Visit APARNA R JEFF 06/02/14 11:15am Discharged Inpatient [facility] 05/21/14 10:17pm Office Visit APARNA R JEFF 04/26/14 8:45am Office Visit APARNA R JEFF 04/20/14 1:30pm Registered Clinic [facility] 04/20/14 11:00am Office Visit APARNA Bursk JEFF 04/14/14 11:15am Office Visit APARNA DELUCAHNS 04/01/14 10:30am Registered Clinic [facility] 03/23/14 10:53am Office Visit APARNA R JEFF 03/18/14 10:15am Office Visit APARNA R JEFF 03/11/14 11:15am Registered Clinic [facility] 03/09/14 11:00am Discharged Inpatient [facility] 03/06/14 8:25pm Office Visit APARNA R JEFF 03/05/14 11:15am Office Visit APARNA R JEFF 03/01/14 9:15am Office Visit APARNA R JEFF 02/26/14 10:00am Registered Clinic [facility] 02/23/14 11:35am Discharged Inpatient [facility] 02/16/14 8:34pm Discharged Inpatient [facility] 02/12/14 2:30am Departed Emergency Room [facility] 02/08/14 10:15am Office Visit APARNA R JEFF 02/02/14 2:15pm Registered Clinic [facility] 02/02/14 1:31pm Office Visit APARNA Vitaliy DELUCAJEFF 01/21/14 10:00am Registered Clinic [facility] 01/12/14 11:43am Office Visit APARNA R JEFF 01/07/14 10:00am Registered Clinic [facility] 12/22/13 12:49pm Office Visit APARNA R JEFF 12/22/13 11:30am Office Visit APARNA R JEFF 12/10/13 11:00am Registered Recurring [facility] 12/01/13 3:00pm Registered Clinic [facility] 12/01/13 2:25pm Discharged Inpatient [facility] 11/27/13 2:30am Office Visit APARNA R JEFF 11/26/13 10:45am Office Visit APARNA R JEFF 11/12/13 11:30am Office Visit APARNA R JEFF 11/05/13 9:15am Discharged Inpatient [facility] 10/30/13 12:37pm Office Visit APARNA R JEFF 10/27/13 10:45am Office Visit AP[facility]NA R JEFF 10/06/13 11:15am Office Visit APARNA R JEFF 09/24/13 10:00am Office Visit APARNA R JEFF 09/08/13 10:30am Office Visit APARNA R JEFF 08/25/13 10:00am Office Visit APARNA R JEFF 08/18/13 11:00am Registered Clinic [facility] 08/11/13 2:45pm Office Visit APARNA R JEFF 08/11/13 2:15pm Office Visit APARNA R JEFF 08/05/13 10:45am
--- OUTSIDE RECORDS SUMMARY | 2016-11-10 06:32 | XMS REPORT | Continuity of Care Document ---
Author Author [facility] Organization [facility] Address Unknown Phone Unavailable Care Team Providers Care Motor Vehicle Inspector Name Role Phone APARNA AGUILAR MD Primary Care Physician [phone] Insurance Providers Payer Name Policy Number Subscriber Name Relationship [employer] [id number] Amee Guillen 01 Self / Same As Patient For Life [id number] Amee Guillen Self / Same As Patient Advance Directives Directive Response Recorded Date/Time Patient Resuscitation Status Full Code 05/22/14 2:38am Advance Directives Yes 05/22/14 2:38am Living Will Yes 05/22/14 2:38am Health Care Power of Billing Supervisor Yes 05/22/14 2:38am Chief Complaint and Reason for Visit Chief Complaint FEVER Reason for Visit Benign essential hypertension Diabetes mellitus Cellulitis Congestive heart failure (CHF) History of CHF (congestive heart failure) Chronic pain Cellulitis Opiate overdose Hypotension Cellulitis Problems Medical Problems Problem Onset Date [...] Active Hypotension Unknown Active Cellulitis Unknown Active Medications Medication [...] 05/27/13 08/25/13 Discontinued Fluticasone Propionate (Nasal) 2 Devers NA DAILY 1 Qty 05/27/13 Discontinued Levofloxacin 500 Mg PO DAILY 10 Qty 05/29/13 07/31/13 Discontinued Magnesium Oxide 400 Mg PO TWICE A DAY For NUTRIENT REPLACEMENT 180 Qty 06/30/13 04/07/14 Discontinued Fluconazole 100 Mg PO WEEKLY For PREVENT INFECTION 12 Qty 06/30/1303/07 Discontinued Tamsulosin Hcl 0.4 Mg PO DAILY For DYSUREA 90 Qty 06/30/13 Active Fluticasone Propionate (Nasal) 2 Devers NA DAILY For CONGESTION 3 Qty Active Minocycline Hcl 100 Mg PO DAILY For ANTIBIOTIC 90 Qty 07/14/13 Active Tramadol Hcl 1-2 Tab PO Every 6 hours as needed For BREAKTHROUGH PAIN 100 Qty 07/14/13 04/01/14 Discontinued Insulin Glargine 20 Unit SC BEDTIME For DIABETES 3 Qty 08/05/13 Active Sertraline Hcl 100 [...] For CHF 60 Qty 11/26/13 04/07/14 Discontinued Spironolactone 100 Mg PO DAILY 11/27/13 Active Potassium Chloride 20 Meq PO TWICE A DAY For replacement 11/27/13 Active Ondansetron 4 Mg PO DAILY PRN NAUSEA 11/27/13 02/08/14 Discontinued Albuterol/Ipratropium 1 Puffs IH FOUR TIMES DAILY 11/27/13 Active Albuterol 1 Ea INH DIRECTED PRN q4prn 25 Qty 11/30/13 Active Lorazepam 0.5 Mg PO Every 4 hours as needed For ANXIETY 60 Qty 04/07/14 Discontinued Menthol-Zinc Oxide 1 Un EX DAILY 1 Qty 12/22/13 Active Ondansetron 4 Mg PO DAILY PRN NAUSEA 30 Qty 02/08/14 Active Fluticasone Propionate (Nasal) 1-2 Devers NA DAILY For STUFFY NOSE 1 Qty 02/12/14 Active Nitroglycerin 0.4 Mg SL NEEDED For ANGINA PAIN 1 Qty 02/15/14 Active Sulfamethoxazole-Trimethoprim 1 Tab PO TWICE A DAY 20 Qty 02/15/14 Discontinued Sulfamethoxazole-Trimethoprim 1 Tab PO TWICE A DAY 20 Qty for antibiotic. Take until gone. 02/16/14 02/19/14 Discontinued Levofloxacin 750 Mg PO DAILY For Pneumonia 5 Qty 02/19/14 02/26/14 Discontinued Clindamycin Hcl 300 Mg PO THREE TIMES A DAY For pneumonia 15 Qty 02/26/14 Discontinued Lisinopril 5 Mg PO DAILY For CHF 30 Qty 02/19/14 02/26/14 Discontinued [place]-3 Fatty Acids 1,000 Mg PO DAILY 03/06/14 Active Ibuprofen 800 Mg PO THREE TIMES A DAY 90 Qty 03/18/14 Active Ranitidine Hcl 150 Mg PO TWICE A DAY For INDIGESTION 180 Qty 04/01/14 Active Fluconazole 100 Mg PO WEEKLY For PREVENT INFECTION 12 Qty 04/01/14 Active Tramadol Hcl 1-2 Tab PO Every 6 hours as needed For BREAKTHROUGH PAIN 100 Qty 04/01/14 Active Magnesium Oxide 400 Mg PO TWICE A DAY For NUTRIENT REPLACEMENT 180 Qty 04/07/14 Active Furosemide 80 Mg PO TWICE A DAY For CHF 180 Qty 04/07/14 Active Lorazepam 0.5 Mg PO Every 4 hours as needed For ANXIETY 60 Qty Active Sulfamethoxazole-Trimethoprim 1 Tab PO TWICE A DAY For cellulitis 14 Qty 05/24/14 Active Social History Social History Problem Response Recorded Date/Time Smoking Status Former smoker 05/24/2014 9:03am Query Response Start Date Stop Date Smoking Status Former smoker Hospital Discharge Instructions Medication Information Medication information Medications taken today: . TAKEN AT 3:49AM: PERCOCET 10 - ONE TABLET TAKEN AT 6:15AM: SYNTHROID 75MCG OXYCONTIN 40MG TAKEN AT 8:00AM: K-DUR 20MEQ ZANTAC 150MG CARVEDILOL 3.125MG COLCHICINE 0.6MG LASIX 80MG NEURONTIN 600MG ZOLOFT 100MG FLOMAX 0.4MG MAG OX 400MG TAKEN AT 9:30AM: PERCOCET 10 - ONE TABLET LEVAQUIN 500MG Discharge Instructions Provider Instructions Dismiss Date: May 24, 2014 Dismiss: Home Diet: As Tolerated Activity: As Tolerated Physician Follow-up Appt #1: Dr Aguilar [phone] F/U Appt: One Week Discharge Instructions 1. Follow up with Dr Aguilar in 1 week 2. Resume previous diet and activity 3. Take all medications only as prescribed 4. Return to the ER for chest pain, difficult breathing or pain unrelieved by your pain medications at home Signs/Symptoms -notify Doctor: Fever above 101 deg, Chest Pain, Nausea/Vomiting, Shortness of Breath, Uncontrolled Pain, Gain > 5lbs in one week Nursing Instructions Physician Follow-up Appointment: Dr Aguilar [phone] Scheduled Date: 05/31/14 Scheduled Time: 1:45PM Signs and Symptoms to notify your Doctor about:: Fever above 101 deg, Chest Pain, Nausea/Vomiting, Shortness of Breath, Uncontrolled Pain, Gain > 5lbs in one week Diet: As Tolerated Activity: As Tolerated Heart Failure Discharge Instructions: [...] given: Yes Plan of Care Discharge Date 05/24/14 11:40am Disposition 06 HOME HEALTH SERVICE Prescriptions See Medications Section Functional Status Query Response Date Recorded Overall Activities Daily Living Ability/Staff Support Extens/One person assist May 22, 2014 2:38am Oral Care Ability/Staff Support Activity did not occur May 23, 2014 7:30pm Cognitive Skills Independent May 24, 2014 9:03am Making self understood Understood May 24, 2014 9:03am Allergies, Adverse Reactions, Alerts Allergen Type Severity Reaction Status Last Updated Allopurinol Allergy Unknown Active 05/25/13 Celecoxib Allergy Unknown Active 05/25/13 Cephalosporin Allergy Unknown Active 05/25/13 Codeine Allergy Unknown Active 05/25/13 Metoclopramide Allergy Unknown Active 05/25/13 Venlafaxine Allergy Unknown Active 05/25/13 Immunizations Name Given Type Hx Hepatitis A Vaccination No Historical Pneumonia Vaccine Received Yes Historical Had a Tetanus Toxoid Vaccination less than 10yrs ago Yes Historical Td (adult), adsorbed 02/17/14 Administered Td (adult), adsorbed 02/17/14 Administered Influenza, high dose seasonal 03/07/14 Administered Influenza, high dose seasonal 03/07/14 Administered Vital Signs Acute Vital Signs Vital Response Date/Time Blood Pressure 101/73 mm Hg Blood Pressure Mean 74 mm Hg Blood Pressure Mean 82 mm Hg Temperature (Fahrenheit) 98.0 degrees F (96.0 - 99.9) Temperature (Calculated Celsius) 36.44938 degrees C Temperature (Calculated Celsius) 36.83319 degrees C (36.4 - 37.5) Temperature (Fahrenheit) 98.4 degrees F (96.0 - 99.9) Temperature Source Oral Temperature Source Oral Temp 98.4 degrees F (96.0 - 99.9) Temperature (Calculated Celsius) 36.50851 degrees C Pulse Pulse Rate (adult) 84 bpm (60 - 100) Pulse Rate (adult) 115 bpm (60 - 100) Pulse Rate: ED 82 bpm Respiratory Rate 22 breaths per minute (10 - 20) Respiratory Rate 14 bpm (10 - 20) Height (Feet) 5 ft Height (Inches) 6.0 in. Weight (Pounds) 275.5 lbs Height 5 ft 6 in Weight 275 lb Body Mass Index 44.5 kg/m^2 Ambulatory Vital Signs Vital Response Date/Time Height 5 ft 5 in 04/26/2014 8:58am Weight 269 lbs 04/26/2014 8:58am Blood Pressure 100/62 mm Hg 04/26/2014 8:58am Body Surface Area 2.43 m2 04/26/2014 8:58am Body Mass Index 44.8 kg/m2 04/26/2014 8:58am Results Test Source Date Result Interp. Ref. Range Comments Activated Partial Thromboplast Time September 23, 2011 6:25am 26.6 SECONDS N 23.0-32.0 COMMENT: 06 Alanine Aminotransferase (ALT/SGPT) May 21, 2014 7:40pm 22 U/L N 5- 40 Albumin May 21, 2014 7:40pm 3.6 gm/dL N 3.2-5.0 Albumin/Globulin Ratio May 21, 2014 7:40pm 1.2 L 1.4-2.4 Alkaline Phosphatase May 21, 2014 7:40pm 77 U/L N 35-125 Ammonia August 28, 2010 8:20pm 28 mcg/dL N 19-60 COMMENTS?NEW ADMIT SERUM AMMONIA,SERUM MAG Anion Gap May 24, 2014 6:01am 11.0 N 6-13 Anisocytosis December 08, 2012 8:20am 2+ COMMENT: 04 Arterial Blood HCO3 October 30, 2013 7:25am 36.9 mEq/L H 21-27 DONE ON O2 AT 4 LPM VIA N/C..THE RESULTS WERE CALLED TO DR. AGUILAR. Arterial Blood Total CO2 October 30, 2013 7:25am 38.8 mM/L H 21-27 Arterial Blood pH October 30, 2013 7:25am 7.39 N 7.35-7.45 Aspartate Amino Transf (AST/SGOT) May 21, 2014 7:40pm 24 U/L N 5- 40 Atypical Lymphocytes June 25, 2012 10:20pm 1.0 % N 0-2 COMMENT: 05 B-Type Natriuretic Peptide March 06, 2014 5:00pm 338 pg/mL H 15-100 BUN/Creatinine Ratio May 24, 2014 6:01am 23.7 Band Neutrophils December 08, 2012 8:20am 2.0 % N 0-7 COMMENT: 04 Basophils # (Auto) May 21, 2014 7:40pm 0.0 K/uL N 0-0.2 Basophils (%) (Auto) May 21, 2014 7:40pm 0.4 % N 0-1 Basophils (Manual) February 14, 2014 6:05am 0.0 % N 0-1 Bedside Blood Urea Nitrogen June 06, 2009 8:27am 44 mg/dL H 8-25 Bedside Chloride June 06, 2009 8:27am 103 mEq/L N 98-116 Bedside Creatinine June 06, 2009 8:27am 1.6 mg/dL N 0.9-1.6 Bedside Glucose May 23, 2014 9:16pm 90 mg/dL N 70-120 Bedside Hematocrit June 06, 2009 8:27am [...] 78 mmHg L 89-100 Blood Urea Nitrogen May 24, 2014 6:01am 22 mg/dL N 8-25 C-Reactive Protein June 25, 2012 10:20pm 8.0 mg/L <6.0 COMMENT: 05 Calcium Level May 24, 2014 6:01am 9.5 mg/dL N 8.2-10.6 Carbon Dioxide Level May 24, 2014 6:01am 33 mEq/L N 22-34 Chloride Level May 24, 2014 6:01am 97 mEq/L L 98-116 Cholesterol Level February 20, 2002 8:12am 130 mg/dL N 120-200 Creatine Kinase MB May 21, 2014 7:40pm 4.7 ng/mL N 0.0-6.0 Creatine Kinase MB Relative Index May 21, 2014 7:40pm 0.0-2.2 Creatinine May 24, 2014 6:01am 0.93 mg/dL N 0.9-1.6 Creatinine Clearance December 21, 1998 3:22pm 42.4 ml/min L 72-141 D-Dimer January 26, 2004 7:15am Positive ug/mL <0.20 COMMENTS? ROOM 3 D-Dimer Quantitative (PE/DVT) March 06, 2014 5:00pm 363 ng/mL < 230 Results <230 ng/mL juan a negativepredictability for DVT or PE D-Dimer Titer January 26, 2004 7:15am 0.20-0.40 ug/mL <0.20 COMMENTS? ROOM 3 Digoxin Level September 13, 1998 9:42am 2.3 ng/ml PH Eosinophils # (Auto) May 21, 2014 7:40pm 0.5 K/uL N 0-0.8 Eosinophils (%) (Auto) May 21, 2014 7:40pm 5.0 % N 0-7.0 Eosinophils (Manual) February 14, 2014 6:05am 12.0 % H 0-7.0 Erythrocyte Sedimentation Rate May 29, 2010 1:10pm 7 mm/hr N 0-20 Folate August 06, 2000 6:50am See separate report ng/ml Free Thyroxine Index August 06, 2000 6:50am 5.10 N 3.6-14.0 Globulin May 21, 2014 7:40pm 3.1 gm/dL H 2.0-3.0 Glomerular Filtration Rate Calc May 24, 2014 6:01am > 60.00 mL/min MULTIPLY RESULT BY 1.210 [...] PROCEDURE - PT IN RR NOW Hematocrit May 21, 2014 7:40pm 43.7 % N 40.0-54.0 Hemoglobin May 21, 2014 7:40pm 13.9 g/dL L 14.0-18.0 Hepatitis B Surface Antibody [...] 0-0.4 COMMENT: 04 Immature Granulocyte # (Auto) May 21, 2014 7:40pm 0.03 K/uL N 0- 0.40 Immature Granulocyte % (Auto) May 21, 2014 7:40pm 0.3 % N 0-0.5 LDL Cholesterol February 20, 2002 8:12am 59 mg/dL N 25-160 Lab Scanned Report April 29, 2014 8:54am Lab Scanned Report [id number] Lactate Dehydrogenase September 28, 1998 4:10pm 152 U/L N COMMENTS? CARDIAC ENZYMES NOW Lactic Acid Level May 21, 2014 7:40pm 1.2 mmol/L N 0.5-2.2 Lipase May 21, 2014 7:40pm 17 U/L N 8-57 Lymphocytes # (Auto) May 21, 2014 7:40pm 0.6 K/uL L 0.9-5.2 Lymphocytes (%) (Auto) May 21, 2014 7:40pm 6.6 % L 16.0-44.0 Lymphocytes (Manual) February 14, 2014 6:05am 26.0 % N 21.0-51.0 Macrocytosis December 08, 2012 8:20am 2+ COMMENT: 04 Magnesium Level August 27, 2011 10:20am 1.7 mg/dL N 1.3-2.5 Mean Corpuscular Hemoglobin May 21, 2014 7:40pm 30.2 pg N 26.0- 33.0 Mean Corpuscular Hemoglobin Concent May 21, 2014 7:40pm 31.8 g/dL N 31.0-36.0 Mean Corpuscular Volume May 21, 2014 7:40pm 95.0 fL H 80.0-94.0 Mean Platelet Volume May 21, 2014 7:40pm 9.7 fL N 7.0-11.0 Metamyelocytes January 22, 2008 7:03pm 2.0 % Microcytosis November 03, 2006 8:55am 1+ COMMENTS?ROOM 2 Monocytes # (Auto) May 21, 2014 7:40pm 0.8 K/uL N 0.16-1.0 Monocytes (%) (Auto) May 21, 2014 7:40pm 8.1 % N 2.0-9.0 Monocytes (Manual) February 14, 2014 6:05am 16.0 % H 2.0-9.0 Myelocytes January 22, 2008 7:03pm 1.0 % Neutrophils February 14, 2014 6:05am 46.0 % N 42.0-75.0 Neutrophils # (Auto) May 21, 2014 7:40pm 7.5 K/uL N 1.9-8.0 Neutrophils (%) (Auto) May 21, 2014 7:40pm 79.6 % H 42.0-75.0 Nucleated Red Blood Cells # May 21, 2014 7:40pm 0.00 K/uL N 0.0- 0.012 Nucleated Red Blood Cells % May 21, 2014 7:40pm 0.0 /100WBC N 0-0 Ovalocytes January 22, 2006 9:55pm 1+ COMMENTS?ROOM 5 Platelet Count May 21, 2014 7:40pm 110 K/uL L 130-400 Platelet Estimate February 14, 2014 6:05am Normal NORMAL Poikilocytosis January 22, 2006 9:55pm 1+ COMMENTS?ROOM 5 Polychromasia August 10, 2006 10:30pm 1+ COMMENTS?ROOM 2 Potassium Level May 24, 2014 6:01am 4.0 mEq/L N 3.5-5.1 Prealbumin May 30, 2010 [...] 11.1 SECONDS N 9.0-12.0 RDW Standard Deviation May 21, 2014 7:40pm 48.2 fL H 35.1-43.9 Random Glucose May 24, 2014 6:01am 104 mg/dL DN 65-115 Rapid Troponin I August 28, 2010 3:40pm 0.00 ng/mL N 0.00-0.03 < 0.03 ng/mL=NORMAL0.04 - 0.50 ng/mL=CARDIAC CONDITION >0.50 ng/mL=SUGGESTS AMI Red Blood Cell Morphology August 27, 2002 7:35pm Normal Red Blood Count May 21, 2014 7:40pm 4.60 M/uL N 4.60-5.40 Red Cell Distribution Width May 21, 2014 7:40pm 13.8 % N 11.5-14.5 Sodium Level May 24, 2014 6:01am 137 mEq/L N 133-145 Stomatocytes December 08, 2012 [...] Synovial Fluid WBC September 27, 1998 12:00am 43693.0 /uL PH Target Cells August 05, 2001 7:20am 2+ COMMENTS? SEND TO [facility] ON ARRIVAL Thyroid Stimulating Hormone (TSH) May 29, 2010 1:10pm 10.62 uIU/ml H 0.34-5.60 Thyroxine (T4) August 06, 2000 6:50am 5.8 ug/dl N 4.7-11.5 Total Bilirubin May 21, 2014 7:40pm 0.7 mg/dL N 0.1-1.3 Total Creatine Kinase May 21, 2014 7:40pm 52 U/L N 10-180 Total Protein May 21, 2014 7:40pm 6.7 gm/dL N 6.0-8.4 Toxic Granulation May 28, 2001 3:18pm 1+ Triglycerides Level February 20, 2002 8:12am 113 mg/dL N 45-150 Triiodothyronine (T3) Uptake August 06, 2000 6:50am 27.8 % N 24.0- 38.9 Troponin I May 21, 2014 7:40pm 0.01 ng/mL N 0.0-0.02 Uric Acid August 07, 2005 10:33am 5.7 mg/dL N 2.5-7.0 COMMENTS? ADD TO THIS AM'S LABS Urine Amorphous Sediment December 08, 2011 11:25am Trace COMMENT: 05SOURCE: URINE, RANDOM Urine Appearance May 21, 2014 9:11pm Clear SOURCE: URINE, CLEAN CATCH Urine Bacteria May 07, 2012 12:00am None /hpf NONE COMMENT: 05SOURCE: URINE, CLEAN CATCH Urine Bilirubin May 21, 2014 9:11pm Negative NEGATIVE SOURCE: URINE, CLEAN CATCH Urine Casts December 08, 2011 11:25am None /lpf NONE COMMENT: 05SOURCE: URINE, RANDOM Urine Color May 21, 2014 9:11pm Yellow SOURCE: URINE, CLEAN CATCH Urine Creatinine December 21, 1998 3:22pm 1.8 mg/dL Urine Crystals December 08, 2011 11:25am None /hpf NONE COMMENT: 05SOURCE : URINE, RANDOM Urine Epithelial Cells May 07, 2012 12:00am Few /lpf COMMENT: 05SOURCE: URINE, CLEAN CATCH Urine Glucose (UA) May 21, 2014 9:11pm Negative NEGATIVE SOURCE : URINE, CLEAN CATCH Urine Ketones May 21, 2014 9:11pm Negative NEGATIVE SOURCE: URINE, CLEAN CATCH Urine Leukocyte Esterase May 21, 2014 9:11pm Negative NEGATIVE SOURCE: URINE, CLEAN CATCH Urine Mucus December 08, 2011 11:25am None /lpf NONE COMMENT: 05SOURCE: URINE, RANDOM Urine Nitrate May 21, 2014 9:11pm Negative NEGATIVE SOURCE: URINE, CLEAN CATCH Urine Occult Blood May 21, 2014 9:11pm Negative NEGATIVE SOURCE : URINE, CLEAN CATCH Urine Other December 08, 2011 11:25am N COMMENT: 05SOURCE: URINE, RANDOM Urine Protein May 21, 2014 9:11pm Negative NEGATIVE SOURCE: URINE, CLEAN CATCH Urine RBC May 07, 2012 12:00am None /hpf NONE COMMENT: 05SOURCE : URINE, CLEAN CATCH Urine Specific [place] May 21, 2014 9:11pm 1.015 1.005-1.030 SOURCE: URINE, CLEAN CATCH Urine Total Protein 24 Hour March 12, 2001 11:36am 98.4 mg/24hrs N 30-150 Urine Total Volume December 10, 2001 11:20am 4475 mL Urine Uric Acid 24 Hour December 21, 1998 3:22pm 1118.0 MG/24 HR H 250-750 Urine Urobilinogen May 21, 2014 9:11pm 0.2 E.U./dL 0.2-1.0 SOURCE: URINE, CLEAN CATCH Urine WBC May 07, 2012 12:00am None /hpf NONE COMMENT: 05SOURCE : URINE, CLEAN CATCH Urine WBC Clumps December 08, 2011 11:25am 0-1 /hpf NONE COMMENT: 05SOURCE: URINE, RANDOM Urine pH May 21, 2014 9:11pm 6.0 4.5-8.0 SOURCE: URINE, CLEAN CATCH VLDL Cholesterol [...] See separate report pg/ml White Blood Count May 21, 2014 7:40pm 9.5 K/uL N 5.0-10.0 Whole Blood Anion Gap June 06, 2009 8:27am 11 N 10-20 Blood Culture Blood May 21, 2014 7:45pm No growth. Body Fluid Culture Synovial Fluid [...] Date Provider(s) THER/PROPH/DIAG IV INF INIT completed 05/25/13 JEFF,APARAN Burks MD THER/PROPH/DIAG IV INF ADDON completed 05/25/13 JEFF,APARNA Burks MD THER/PROPH/DIAG IV INF ADDON completed 05/25/13 JEFF,APARNA Burks MD THER/PROPH/DIAG IV INF ADDON completed 05/25/13 JEFF,APARNA Burks MD THER/PROPH/DIAG IV INF ADDON completed 05/25/13 JEFF,APARNA Burks MD HYDRATE IV INFUSION ADD-ON completed 05/25/13 JEFF,APARNA Burks MD HYDRATE IV INFUSION ADD-ON completed 05/25/13 JEFF,APARNA Burks MD HYDRATE IV INFUSION ADD-ON completed 05/25/13 JEFF,APARNA Burks MD HYDRATE IV INFUSION ADD-ON completed 05/25/13 JEFF,APARNA Burks MD HYDRATE IV INFUSION ADD-ON completed 05/25/13 JEFF,APARNA Burks MD HYDRATE IV INFUSION ADD-ON completed 05/25/13 JEFF,APARNA Burks MD HYDRATE IV INFUSION ADD-ON completed 05/25/13 JEFF,APARNA Burks MD HYDRATE IV INFUSION ADD-ON completed 05/25/13 JEFF,APARNA Burks MD HYDRATE IV INFUSION ADD-ON completed 05/25/13 JEFF,APARNA Burks MD HYDRATE IV INFUSION ADD-ON completed 05/25/13 JEFF,APARNA Burks MD HYDRATE IV INFUSION ADD-ON completed 05/25/13 JEFF,APARNA Burks MD HYDRATE IV INFUSION ADD-ON completed 05/25/13 JEFF,APARNA Burks MD HYDRATE IV INFUSION ADD-ON completed 05/25/13 JEFF,APARNA Burks MD HYDRATE IV INFUSION ADD-ON completed 05/25/13 JEFF,APARNA Burks MD HYDRATE IV INFUSION ADD-ON completed 05/25/13 JEFF,APARNA Burks MD HYDRATE IV INFUSION ADD-ON completed 05/25/13 JEFF,APARNA Burks MD HYDRATE IV INFUSION ADD-ON completed 05/25/13 JEFF,APARNA Bursk MD HYDRATE IV INFUSION ADD-ON completed 05/25/13 JEFF,APARNA Burks MD HYDRATE IV INFUSION ADD-ON completed 05/25/13 JEFF,APARNA Burks MD HYDRATE IV INFUSION ADD-ON completed 05/25/13 APARNA AGUILAR MD EGD DIAGNOSTIC BRUSH WASH completed 11/27/13 LITZY WATSON M.D. Small intestine endoscopy (procedure) completed 11/27/13 LITZY WATSON M.D. THER/PROPH/DIAG IV INF INIT completed 03/06/14 AMANDA FIELDS M.D. THER/PROPH/DIAG IV INF ADDON completed 03/06/14 TATIANA HAWK MD Encounters Encounter Location Date/Time Admitted Inpatient [facility] 05/21/14 10:17pm Office Visit APARNA TURCIOSS 04/26/14 8:45am Office Visit APARNA TURCIOSS 04/20/14 1:30pm Registered Clinic [facility] 04/20/14 11:00am Office Visit APARNA TURCIOSS 04/14/14 11:15am Office Visit APARNA TURCIOSS 04/01/14 10:30am Registered Clinic [facility] 03/23/14 10:53am Office Visit APARNA TURCIOSS 03/18/14 10:15am Office Visit APARNA TURCIOSS 03/11/14 11:15am Registered Clinic [facility] 03/09/14 11:00am Discharged Inpatient [facility] 03/06/14 8:25pm Office Visit APARNA TURCIOSS 03/05/14 11:15am Office Visit APARNA TURCIOSS 03/01/14 9:15am Office Visit APARNA TURCIOSS 02/26/14 10:00am Registered Clinic [facility] 02/23/14 11:35am Discharged Inpatient [facility] 02/16/14 8:34pm Discharged Inpatient [facility] 02/12/14 2:30am Departed Emergency Room [facility] 02/08/14 10:15am Office Visit APARNA TURCIOSS 02/02/14 2:15pm Registered Clinic [facility] 02/02/14 1:31pm Office Visit APARNA TURCIOSS 01/21/14 10:00am Registered Clinic [facility] 01/12/14 11:43am Office Visit APARNA TURCIOSS 01/07/14 10:00am Registered Clinic [facility] 12/22/13 12:49pm Office Visit APARNA R JEFF 12/22/13 11:30am Office Visit APARNA R JEFF 12/10/13 11:00am Registered Recurring [facility] 12/01/13 3:00pm Registered Clinic [facility] 12/01/13 2:25pm Discharged Inpatient [facility] 11/27/13 2:30am Office Visit APARNA R JEFF 11/26/13 10:45am Office Visit APARNA R JEFF 11/12/13 11:30am Office Visit APARNA R JEFF 11/05/13 9:15am Discharged Inpatient [facility] 10/30/13 12:37pm Office Visit APARNA R JEFF 10/27/13 10:45am Office Visit APARNA R JEFF 10/06/13 11:15am Office Visit APARNA R JEFF 09/24/13 10:00am Office Visit APARNA R JEFF 09/08/13 10:30am Office Visit APARNA R JEFF 08/25/13 10:00am Office Visit APARNA R JEFF 08/18/13 11:00am Registered Clinic [facility] 08/11/13 2:45pm Office Visit APARNA R JEFF 08/11/13 2:15pm Office Visit APARNA R JEFF 08/05/13 10:45am Office Visit APARNA R JEFF 07/31/13 1:00pm Office Visit APARNA R JEFF 07/30/13 10:05am Office Visit APARNA R JEFF 07/24/13 11:30am Office Visit APARNA R JEFF 07/14/13 10:30am Office Visit APARNA R JEFF 06/30/13 10:30am Registered Clinic [facility] 06/09/13 11:37am Office Visit APARNA R JEFF 06/09/13 11:30am Registered Clinic [facility] 06/02/13 11:35am Office Visit APARNA R JEFF 06/02/13 11:15am Discharged Inpatient [facility] 05/28/13 7:10am Office Visit APARNA R JEFF 05/27/13 1:00pm Discharged Inpatient [facility] 05/25/13 9:20am Recent Diagnosis Benign essential hypertension Diabetes mellitus Cellulitis Congestive heart failure (CHF) History of CHF (congestive heart failure) Chronic pain Cellulitis Opiate overdose Hypotension Cellulitis
--- OUTSIDE RECORDS SUMMARY | 2016-11-10 06:32 | XMS REPORT | Referral Summary ---
Author Author [facility] [place] [facility] [place], [facility] [place] Address Unknown Phone Unavailable Care Team Providers Care Petrophysicist Name Role Phone Demetria, Humza Primary Care Physician [phone] Encounter Date(s): 08/10/15 - 08/10/15 [facility], [facility] [place], [address], [place] [address] Discharge Disposition: 01-Home or Self Care Attending Physician: Elena Barros Admitting Physician: Elena Barros Referring Physician: Elena Barros Vital Signs No data available for this [...]
--- OUTSIDE RECORDS SUMMARY | 2016-11-10 06:32 | XMS REPORT | Continuity of Care Document ---
Author Author [facility] Organization [facility] Address Unknown Phone Unavailable Care Team Providers Care Treasury Specialist Name Role Phone APARNA AGUILAR MD Unavailable [phone] Insurance Providers Payer Name Policy Number Subscriber Name Relationship Wps Medicare [id number] Amee Guillen 01 Self / Same As Patient For Life [id number] Amee Guillen Self / Same As Patient Advance Directives Directive Response Recorded Date/Time Patient Resuscitation Status DNR 07/09/14 9:09am Advance Directives Yes 07/09/14 9:09am Living Will Yes 07/09/14 9:09am Health Care Power of Trapeze Performer Yes 07/09/14 9:09am Chief Complaint and Reason for Visit Chief Complaint sob Reason for Visit Benign essential hypertension Diabetes mellitus Congestive heart failure (CHF) Cellulitis Hypoxia Hypotension Problems Medical Problems Problem Onset Date Status [...] 05/27/13 08/25/13 Discontinued Fluticasone Propionate (Nasal) 2 [place] NA DAILY 1 Qty 05/27/13 Discontinued Levofloxacin [...] Qty 02/08/14 Active Fluticasone Propionate (Nasal) 1-2 [place] NA DAILY For STUFFY NOSE 1 Qty [...] PRN MUSCLE PAIN & INFLAMMATION 07/09/14 Active Social History Social History Problem Response Recorded Date/Time Smoking Status Former smoker 07/12/2014 2:23pm Query Response Start Date Stop Date Smoking Status Former smoker Hospital Discharge Instructions Discharge Instructions Provider Instructions Dismiss Date: Jul 12, 2014 Dismiss: Home with Home Health Diet: Return to Previous Activity: As Tolerated Physician Follow-up Appt #1: Dr Aguilar [phone] F/U Appt: One Week Discharge Instructions 1. Follow up with Dr Aguilar within 1 week 2. Return to the hospital for evaluation if any concerns Signs/Symptoms -notify Doctor: Fever above 101 deg, Reaction to Medication Special Instructions: IV access device care Plan of Care Discharge Date 07/12/14 2:45pm Disposition 01 HOME, SELF-CARE Prescriptions See Medications Section Functional Status Query Response Date Recorded Overall Activities Daily Living Ability/Staff Support Limited/One person assist July 09, 2014 9:06am Toileting Ability/Staff Support Total/One person assist July 12, 2014 1:46am Oral Care Ability/Staff Support Limited/One person assist July 12, 2014 10:11am Upper Body Dressing Ability/Staff Support Total/One person assist July 12, 2014 1:46am Lower Body Dressing Ability/Staff Support Activity did not occur July 12, 2014 1:46am Cognitive Skills Independent July 12, 2014 9:00am Making self understood Understood July 12, 2014 9:00am Allergies, Adverse Reactions, Alerts Allergen Type Severity [...] Tetanus Toxoid Vaccination less than 10yrs ago Y 2009 Historical Td (adult), adsorbed 02/17/14 Administered Td (adult), adsorbed 02/17/14 Administered Influenza, high dose seasonal 03/07/14 Administered Influenza, high dose seasonal 03/07/14 Administered Vital Signs Acute Vital Signs Vital Response Date/Time Blood Pressure 115/69 mm Hg Blood Pressure Mean 74 mm Hg Blood Pressure Mean 84 mm Hg Temperature (Fahrenheit) 98.7 degrees F (96.0 - 99.9) Temperature (Calculated Celsius) 37.15590 degrees C Temperature (Calculated Celsius) 36.23545 degrees C (36.4 - 37.5) Temperature (Fahrenheit) 98.4 degrees F (96.0 - 99.9) Temperature Source Oral Temperature Source Oral Temp 98.4 degrees F (96.0 - 99.9) Temperature (Calculated Celsius) 36.00734 degrees C Pulse Pulse Rate (adult) 93 bpm (60 - 100) Pulse Rate (adult) 115 bpm (60 - 100) Pulse Rate: ED 100 bpm Respiratory Rate 18 breaths per minute (10 - 20) Respiratory Rate 14 bpm (10 - 20) Height (Feet) 5 ft Height (Inches) 6.0 in. Weight (Pounds) 258.8 lbs Height 5 ft 6 in Weight 258 lb Body Mass Index 41.8 kg/m^2 Ambulatory Vital Signs Vital Response Date/Time Height 5 ft 5 in 07/08/2014 9:11am Weight 273 lbs 07/08/2014 9:11am Blood Pressure 100/65 mm Hg 07/08/2014 9:11am Body Surface Area 2.45 m2 07/08/2014 9:11am Body Mass Index 45.4 kg/m2 07/08/2014 9:11am Results Test Source Date Result Interp. Ref. [...] April 29, 2014 8:54am Lab Scanned Report [id number] Lactate Dehydrogenase September 28, 1998 4:10pm 152 [...] Synovial Fluid WBC September 27, 1998 12:00am 33633.0 /uL PH Target Cells August 05, 2001 [...] NONE SOURCE: URINE, CLEAN CATCH Urine Specific [place] July 09, 2014 6:35am 1.015 1.005-1.030 SOURCE: [...] procedures. Encounters Encounter Location Date/Time Discharged Inpatient [facility] 07/09/14 11:21am Office Visit APARNA AGUILAR 07/08/14 9:00am Registered Clinic [place] [facility] 07/06/14 10:21am Office Visit APARNA AGUILAR 07/02/14 10:30am Discharged Inpatient [place] [facility] 06/15/14 1:11am Registered Clinic [facility] 06/14/14 11:24am Office Visit APARNA AGUILAR 06/14/14 11:00am Office Visit APARNA AGUILAR 06/02/14 11:15am Discharged Inpatient [facility] 05/21/14 10:17pm Office Visit APARNA AGUILAR 04/26/14 8:45am Office Visit APARNA AGUILAR 04/20/14 1:30pm Registered Clinic [facility] 04/20/14 11:00am Office Visit APARNA AGUILAR 04/14/14 11:15am Office Visit APARNA R JEFF 04/01/14 10:30am Registered Clinic Aida Benson [facility] 03/23/14 10:53am Office Visit APARNA R JEFF 03/18/14 10:15am Office Visit AP[facility]NA R JEFF 03/11/14 11:15am Registered Clinic Aida Benson [facility] 03/09/14 11:00am Discharged Inpatient Aida Benson [facility] 03/06/14 8:25pm Office Visit APARNA R JEFF 03/05/14 11:15am Office Visit [facility]NA R JE[facility] 03/01/14 9:15am Office Visit [facility]NA R [facility] 02/26/14 10:00am Registered Clinic Aida Benson [facility] 02/23/14 11:35am Discharged Inpatient Aida Benson [facility] 02/16/14 8:34pm Discharged Inpatient Aida Benson [facility] 02/12/14 2:30am Departed Emergency Room Aida Benson [facility] 02/08/14 10:15am Office Visit APARNA R JEFF 02/02/14 2:15pm Registered Clinic Aida Benson [facility] 02/02/14 1:31pm Office Visit APARNA R JEFF 01/21/14 10:00am Registered Clinic Aida Benson [facility] 01/12/14 11:43am Office Visit APARNA R JEFF 01/07/14 10:00am Registered Clinic Aida Benson [facility] 12/22/13 12:49pm Office Visit APARNA R JEFF 12/22/13 11:30am Office Visit APARNA R JEFF 12/10/13 11:00am Registered Recurring Aida Benson [facility] 12/01/13 3:00pm Registered Clinic Aida Benson [facility] 12/01/13 2:25pm Discharged Inpatient Aida Benson [facility] 11/27/13 2:30am Office Visit APARNA R JEFF 11/26/13 10:45am Office Visit [facility]NA R [facility]FF 11/12/13 11:30am Office Visit [facility]NA R JEFF 11/05/13 9:15am Discharged Inpatient Aida Benson [facility] 10/30/13 12:37pm Office Visit APARNA R JEFF 10/27/13 10:45am Office Visit APARNA AGUILAR 10/06/13 11:15am Office Visit APARNA AGUILAR 09/24/13 10:00am Office Visit APARNA AGUILAR 09/08/13 10:30am Office Visit APARNA AGUILAR 08/25/13 10:00am Office Visit APARNA AGUILAR 08/18/13 11:00am Registered Clinic Aida Benson [facility] 08/11/13 2:45pm Office Visit APARNA AGUILAR 08/11/13 2:15pm Office Visit APARNA AGUILAR 08/05/13 10:45am Office Visit APARNA AGUILAR 07/31/13 1:00pm Office Visit APARNA AGUILAR 07/30/13 10:05am Office Visit APARNA AGUILAR 07/24/13 11:30am Office Visit APANRA AGUILAR 07/14/13 10:30am Recent Diagnosis Benign essential hypertension Diabetes mellitus Congestive heart failure (CHF) Cellulitis Hypoxia Hypotension
--- OUTSIDE RECORDS SUMMARY | 2016-11-10 06:33 | XMS REPORT | Continuity of Care Document ---
Author Author [facility] Organization [facility] Address Unknown Phone Unavailable Care Team Providers Care Basket Hand Braider Name Role Phone APARNA AGUILAR MD Unavailable [phone] Insurance Providers Payer Name Policy Number Subscriber Name Relationship Wps Medicare [id number] Amee Guillen 01 Self / Same As Patient For Life [id number] Amee Guillen Self / Same As Patient Advance Directives Directive Response Recorded Date/Time Patient Resuscitation Status Full Code 06/15/14 3:31am Advance Directives Yes 06/15/14 3:31am Living Will Yes 06/15/14 3:31am Health Care Power of Manager Ambulatory Yes 06/15/14 3:31am Problems Medical Problems Problem Onset Date Status [...] Active Hypoxia Unknown Active Pneumonia Unknown Active Medications Medication [...] 05/27/13 08/25/13 Discontinued Fluticasone Propionate (Nasal) 2 [place] NA DAILY 1 Qty 05/27/13 Discontinued Levofloxacin 500 Mg PO DAILY 10 Qty 05/29/13 07/31/13 Discontinued Magnesium Oxide 400 Mg PO TWICE A DAY For NUTRIENT REPLACEMENT 180 Qty 06/30/13 04/07/14 Discontinued Fluconazole 100 Mg PO WEEKLY For PREVENT INFECTION 12 Qty 06/30/1303/07 Discontinued Tamsulosin Hcl 0.4 Mg PO DAILY For DYSUREA 90 Qty 06/30/13 Active Fluticasone Propionate (Nasal) 2 [place] NA DAILY For CONGESTION 3 Qty Active [...] Qty 02/08/14 Active Fluticasone Propionate (Nasal) 1-2 [place] NA DAILY For STUFFY NOSE 1 Qty [...] For CHF 30 Qty 02/19/14 02/26/14 Discontinued [place]-3 Fatty Acids 1,000 Mg PO DAILY 03/06/14 [...] DAY For cellulitis 14 Qty 05/24/14 Active Minocycline Hcl 100 Mg PO DAILY For ANTIBIOTIC 90 Qty 06/02/14 Active Fluticasone Propionate (Nasal) 1-2 [place] NA DAILY For STUFFY NOSE 1 Qty 06/02/14 Active Tramadol Hcl 1-2 Tab PO Every 6 hours as needed For BREAKTHROUGH PAIN 100 Qty 06/02/14 Active Spironolactone 100 Mg PO TWICE A DAY 60 Qty 06/02/14 Active Social History Social History Problem Response Recorded Date/Time Smoking Status Former smoker 06/15/2014 3:34am Query Response Start Date Stop Date Smoking Status Former smoker Hospital Discharge Instructions No hospital discharge instructions. Plan of Care Prescriptions See Medications Section Functional Status Query Response Date Recorded Overall Activities Daily Living Ability/Staff Support Independ/Setup help only June 15, 2014 3:32am Allergies, Adverse Reactions, Alerts Allergen Type Severity Reaction Status Last Updated Allopurinol Allergy Unknown Active 05/26/14 Codeine Allergy Unknown Active 05/26/14 Metoclopramide Allergy Unknown Active 05/26/14 Venlafaxine Allergy Unknown Active 05/26/14 Celecoxib Allergy Unknown Active 05/26/14 CEPHALOSPORIN Allergy Unknown Active 05/26/14 Immunizations Name Given Type Hx Hepatitis A Vaccination No Historical Pneumonia Vaccine Received Yes Historical Had a Tetanus Toxoid Vaccination less than 10yrs ago Yes Historical Td (adult), adsorbed 02/17/14 Administered Td (adult), adsorbed 02/17/14 Administered Influenza, high dose seasonal 03/07/14 Administered Influenza, high dose seasonal 03/07/14 Administered Vital Signs Acute Vital Signs Vital Response Date/Time Blood Pressure 99/71 mm Hg Blood Pressure Mean 74 mm Hg Blood Pressure Mean 80 mm Hg Temperature (Fahrenheit) 98.7 degrees F (96.0 - 99.9) Temperature (Calculated Celsius) 37.51433 degrees C Temperature (Calculated Celsius) 36.09281 degrees C (36.4 - 37.5) Temperature (Fahrenheit) 98.4 degrees F (96.0 - 99.9) Temperature Source Oral Temperature Source Axillary Temp 98.4 degrees F (96.0 - 99.9) Temperature (Calculated Celsius) 36.67011 degrees C Pulse Pulse Rate (adult) 94 bpm (60 - 100) Pulse Rate (adult) 115 bpm (60 - 100) Pulse Rate: ED 90 bpm Respiratory Rate 28 breaths per minute (10 - 20) Respiratory Rate 14 bpm (10 - 20) Height (Feet) 5 ft Height (Inches) 6.0 in. Weight (Pounds) 277.6 lbs Height 5 ft 6 in Weight 277 lb Body Mass Index 44.8 kg/m^2 Ambulatory Vital Signs Vital Response Date/Time Height 5 ft 5 in 06/14/2014 11:12am Blood Pressure 104/65 mm Hg 06/14/2014 11:12am Results Test Source Date Result Interp. Ref. Range Comments Activated Partial Thromboplast Time September 23, 2011 6:25am 26.6 SECONDS N 23.0-32.0 COMMENT: 06 Alanine Aminotransferase (ALT/SGPT) June 15, 2014 12:20am 32 U/L N 5 -40 Albumin June 15, 2014 12:20am 3.5 gm/dL N 3.2-5.0 Albumin/Globulin Ratio June 15, 2014 12:20am 1.0 L 1.4-2.4 Alkaline Phosphatase June 15, 2014 12:20am 81 U/L N 35-125 Ammonia August 28, 2010 8:20pm 28 mcg/dL N 19-60 COMMENTS?NEW ADMIT SERUM AMMONIA,SERUM MAG Anion Gap June 15, 2014 12:20am 13.8 H 6-13 Anisocytosis December 08, 2012 8:20am 2+ COMMENT: 04 Arterial Blood HCO3 October 30, 2013 7:25am 36.9 mEq/L H 21-27 DONE ON O2 AT 4 LPM VIA N/C..THE RESULTS WERE CALLED TO DR. AGUILAR. Arterial Blood Total CO2 October 30, 2013 7:25am 38.8 mM/L H 21-27 Arterial Blood pH October 30, 2013 7:25am 7.39 N 7.35-7.45 Aspartate Amino Transf (AST/SGOT) June 15, 2014 12:20am 32 U/L N 5- 40 Atypical Lymphocytes June 25, 2012 10:20pm 1.0 % N 0-2 COMMENT: 05 B-Type Natriuretic Peptide June 15, 2014 12:20am 383 pg/mL H 15-100 BUN/Creatinine Ratio June 15, 2014 12:20am 18.8 Band Neutrophils December 08, 2012 8:20am 2.0 % N 0-7 COMMENT: 04 Basophils # (Auto) June 15, 2014 12:20am 0.0 K/uL N 0-0.2 Basophils (%) (Auto) June 15, 2014 12:20am 0.5 % N 0-1 Basophils (Manual) February 14, 2014 6:05am 0.0 % N 0-1 Bedside Blood Urea Nitrogen June 06, 2009 8:27am 44 mg/dL H 8-25 Bedside Chloride June 06, 2009 8:27am 103 mEq/L N 98-116 Bedside Creatinine June 06, 2009 8:27am 1.6 mg/dL N 0.9-1.6 Bedside Glucose May 24, 2014 7:58am 100 mg/dL N 70-120 Bedside Hematocrit June 06, [...] 78 mmHg L 89-100 Blood Urea Nitrogen June 15, 2014 12:20am 43 mg/dL H 8-25 C-Reactive Protein June 25, 2012 10:20pm 8.0 mg/L <6.0 COMMENT: 05 Calcium Level June 15, 2014 12:20am 8.4 mg/dL N 8.2-10.6 Carbon Dioxide Level June 15, 2014 12:20am 28 mEq/L N 22-34 Chloride Level June 15, 2014 12:20am 97 mEq/L L 98-116 Cholesterol Level February 20, 2002 8:12am 130 mg/dL N 120-200 Creatine Kinase MB May 21, 2014 7:40pm 4.7 ng/mL N 0.0-6.0 Creatine Kinase MB Relative Index May 21, 2014 7:40pm 0.0-2.2 Creatinine June 15, 2014 12:20am 2.29 mg/dL H 0.9-1.6 Creatinine Clearance December 21, 1998 3:22pm [...] 9:42am 2.3 ng/ml PH Eosinophils # (Auto) June 15, 2014 12:20am 0.4 K/uL N 0-0.8 Eosinophils (%) (Auto) June 15, 2014 12:20am 6.8 % N 0-7.0 Eosinophils (Manual) February 14, 2014 6:05am 12.0 % H 0-7.0 Erythrocyte Sedimentation Rate May 29, 2010 1:10pm 7 mm/hr N 0-20 Folate August 06, 2000 6:50am See separate report ng/ml Free Thyroxine Index August 06, 2000 6:50am 5.10 N 3.6-14.0 Globulin June 15, 2014 12:20am 3.4 gm/dL H 2.0-3.0 Glomerular Filtration Rate Calc June 15, 2014 12:20am 28.08 mL/min MULTIPLY RESULT BY 1.210 IF THE [...] PROCEDURE - PT IN RR NOW Hematocrit June 15, 2014 12:20am 41.4 % N 40.0-54.0 Hemoglobin June 15, 2014 12:20am 12.6 g/dL L 14.0-18.0 Hepatitis B Surface Antibody [...] 0-0.4 COMMENT: 04 Immature Granulocyte # (Auto) June 15, 2014 12:20am 0.02 K/uL N 0- 0.40 Immature Granulocyte % (Auto) June 15, 2014 12:20am 0.3 % N 0-0.5 LDL Cholesterol February 20, 2002 8:12am 59 mg/dL N 25-160 Lab Scanned Report April 29, 2014 8:54am Lab Scanned Report [id number] Lactate Dehydrogenase September 28, 1998 4:10pm 152 U/L N COMMENTS? CARDIAC ENZYMES NOW Lactic Acid Level May 21, 2014 7:40pm 1.2 mmol/L N 0.5-2.2 Lipase May 21, 2014 7:40pm 17 U/L N 8-57 Lymphocytes # (Auto) June 15, 2014 12:20am 0.7 K/uL L 0.9-5.2 Lymphocytes (%) (Auto) June 15, 2014 12:20am 10.4 % L 16.0-44.0 Lymphocytes (Manual) February 14, 2014 6:05am 26.0 % N 21.0-51.0 Macrocytosis December 08, 2012 8:20am 2+ COMMENT: 04 Magnesium Level August 27, 2011 10:20am 1.7 mg/dL N 1.3-2.5 Mean Corpuscular Hemoglobin June 15, 2014 12:20am 29.8 pg N 26.0- 33.0 Mean Corpuscular Hemoglobin Concent June 15, 2014 12:20am 30.4 g/dL L 31.0-36.0 Mean Corpuscular Volume June 15, 2014 12:20am 97.9 fL H 80.0-94.0 Mean Platelet Volume June 15, 2014 12:20am 10.3 fL N 7.0-11.0 Metamyelocytes January 22, 2008 7:03pm 2.0 % Microcytosis November 03, 2006 8:55am 1+ COMMENTS?ROOM 2 Monocytes # (Auto) June 15, 2014 12:20am 0.7 K/uL N 0.16-1.0 Monocytes (%) (Auto) June 15, 2014 12:20am 11.3 % H 2.0-9.0 Monocytes (Manual) February 14, 2014 6:05am 16.0 % H 2.0-9.0 Myelocytes January 22, 2008 7:03pm 1.0 % Neutrophils February 14, 2014 6:05am 46.0 % N 42.0-75.0 Neutrophils # (Auto) June 15, 2014 12:20am 4.5 K/uL N 1.9-8.0 Neutrophils (%) (Auto) June 15, 2014 12:20am 70.7 % N 42.0-75.0 Nucleated Red Blood Cells # June 15, 2014 12:20am 0.00 K/uL N 0.0- 0.012 Nucleated Red Blood Cells % June 15, 2014 12:20am 0.0 /100WBC N 0-0 Ovalocytes January 22, 2006 9:55pm 1+ COMMENTS?ROOM 5 Platelet Count June 15, 2014 12:20am 105 K/uL L 130-400 Platelet Estimate February 14, 2014 6:05am Normal NORMAL Poikilocytosis January 22, 2006 9:55pm 1+ COMMENTS?ROOM 5 Polychromasia August 10, 2006 10:30pm 1+ COMMENTS?ROOM 2 Potassium Level June 15, 2014 12:20am 4.8 mEq/L N 3.5-5.1 Prealbumin May 30, 2010 [...] 11.1 SECONDS N 9.0-12.0 RDW Standard Deviation June 15, 2014 12:20am 51.9 fL H 35.1-43.9 Random Glucose June 15, 2014 12:20am 161 mg/dL H 65-115 Rapid Troponin I August 28, 2010 3:40pm 0.00 ng/mL N 0.00-0.03 < 0.03 ng/mL=NORMAL0.04 - 0.50 ng/mL=CARDIAC CONDITION >0.50 ng/mL=SUGGESTS AMI Red Blood Cell Morphology August 27, 2002 7:35pm Normal Red Blood Count June 15, 2014 12:20am 4.23 M/uL L 4.60-5.40 Red Cell Distribution Width June 15, 2014 12:20am 14.6 % H 11.5- 14.5 Sodium Level June 15, 2014 12:20am 134 mEq/L N 133-145 Stomatocytes December 08, 2012 [...] Synovial Fluid WBC September 27, 1998 12:00am 49148.0 /uL PH Target Cells August 05, 2001 7:20am 2+ COMMENTS? SEND TO [facility] ON ARRIVAL Thyroid Stimulating Hormone (TSH) May 29, 2010 1:10pm 10.62 uIU/ml H 0.34-5.60 Thyroxine (T4) August 06, 2000 6:50am 5.8 ug/dl N 4.7-11.5 Total Bilirubin June 15, 2014 12:20am 0.4 mg/dL N 0.1-1.3 Total Creatine Kinase May 21, 2014 7:40pm 52 U/L N 10-180 Total Protein June 15, 2014 12:20am 6.9 gm/dL N 6.0-8.4 Toxic Granulation May 28, 2001 3:18pm 1+ Triglycerides Level February 20, 2002 8:12am 113 mg/dL N 45-150 Triiodothyronine (T3) Uptake August 06, 2000 6:50am 27.8 % N 24.0- 38.9 Troponin I June 15, 2014 12:20am 0.00 ng/mL N 0.0-0.02 Uric Acid August 07, 2005 10:33am 5.7 mg/dL N 2.5-7.0 COMMENTS? ADD TO THIS AM'S LABS Urine Amorphous Sediment December 08, 2011 11:25am Trace COMMENT: 05SOURCE: URINE, RANDOM Urine Appearance June 15, 2014 12:35am Clear SOURCE: URINE, CLEAN CATCH Urine Bacteria June 15, 2014 12:35am None /hpf NONE SOURCE: URINE , CLEAN CATCH Urine Bilirubin June 15, 2014 12:35am Negative NEGATIVE SOURCE: URINE, CLEAN CATCH Urine Casts June 15, 2014 12:35am 3-5 hyaline /lpf NONE SOURCE: URINE, CLEAN CATCH Urine Color June 15, 2014 12:35am Yellow SOURCE: URINE, CLEAN CATCH Urine Creatinine December 21, 1998 3:22pm 1.8 mg/dL Urine Crystals December 08, 2011 11:25am None /hpf NONE COMMENT: 05SOURCE : URINE, RANDOM Urine Epithelial Cells June 15, 2014 12:35am Occasional /lpf SOURCE: URINE, CLEAN CATCH Urine Glucose (UA) June 15, 2014 12:35am Negative NEGATIVE SOURCE : URINE, CLEAN CATCH Urine Ketones June 15, 2014 12:35am Negative NEGATIVE SOURCE: URINE, CLEAN CATCH Urine Leukocyte Esterase June 15, 2014 12:35am Negative NEGATIVE SOURCE: URINE, CLEAN CATCH Urine Mucus December 08, 2011 11:25am None /lpf NONE COMMENT: 05SOURCE: URINE, RANDOM Urine Nitrate June 15, 2014 12:35am Negative NEGATIVE SOURCE: URINE, CLEAN CATCH Urine Occult Blood June 15, 2014 12:35am Negative NEGATIVE SOURCE : URINE, CLEAN CATCH Urine Other December 08, 2011 11:25am N COMMENT: 05SOURCE: URINE, RANDOM Urine Protein June 15, 2014 12:35am Negative NEGATIVE SOURCE: URINE, CLEAN CATCH Urine RBC June 15, 2014 12:35am None /hpf NONE SOURCE: URINE, CLEAN CATCH Urine Specific [place] June 15, 2014 12:35am 1.025 1.005-1.030 SOURCE: URINE, CLEAN CATCH Urine Total Protein 24 Hour March 12, 2001 11:36am 98.4 mg/24hrs N 30-150 Urine Total Volume December 10, 2001 11:20am 4475 mL Urine Uric Acid 24 Hour December 21, 1998 3:22pm 1118.0 MG/24 HR H 250-750 Urine Urobilinogen June 15, 2014 12:35am 0.2 E.U./dL 0.2-1.0 SOURCE: URINE, CLEAN CATCH Urine WBC June 15, 2014 12:35am None /hpf NONE SOURCE: URINE, CLEAN CATCH Urine WBC Clumps December 08, 2011 11:25am 0-1 /hpf NONE COMMENT: 05SOURCE: URINE, RANDOM Urine pH June 15, 2014 12:35am 6.0 4.5-8.0 SOURCE: URINE, CLEAN CATCH VLDL [...] See separate report pg/ml White Blood Count June 15, 2014 12:20am 6.4 K/uL N 5.0-10.0 Whole Blood Anion Gap [...] history of procedures. Encounters Encounter Location Date/Time Admitted Inpatient Aida Benson [facility] 06/15/14 1:11am Registered Clinic Aidaeleni Benson [facility] 06/14/14 11:24am Office Visit APARNA R [facility] 06/14/14 11:00am Office Visit [facility] 06/02/14 11:15am Discharged Inpatient Aida Benson [facility] 05/21/14 10:17pm Office Visit [facility] 04/26/14 8:45am Office Visit [facility] 04/20/14 1:30pm Registered Clinic Aida Benson [facility] 04/20/14 11:00am Office Visit [facility] 04/14/14 11:15am Office Visit [facility] 04/01/14 10:30am Registered Clinic Aida Benson [facility] 03/23/14 10:53am Office Visit [facility] 03/18/14 10:15am Office Visit [facility] 03/11/14 11:15am Registered Clinic Aida Benson [facility] 03/09/14 11:00am Discharged Inpatient Aida Benson [facility] 03/06/14 8:25pm Office Visit [facility] 03/05/14 11:15am Office Visit [facility] 03/01/14 9:15am Office Visit [facility] 02/26/14 10:00am Registered Clinic Aida Benson [facility] 02/23/14 11:35am Discharged Inpatient Aida Benson [facility] 02/16/14 8:34pm Discharged Inpatient Aida Benson [facility] 02/12/14 2:30am Departed Emergency Room Aida Benson [facility] 02/08/14 10:15am Office Visit [facility] 02/02/14 2:15pm Registered Clinic Aida Benson [facility] 02/02/14 1:31pm Office Visit [facility] 01/21/14 10:00am Registered Clinic Aida Benson [facility] 01/12/14 11:43am Office Visit AP[facility]NA R [facility] 01/07/14 10:00am Registered Clinic Aida Benson [facility] 12/22/13 12:49pm Office Visit [facility] 12/22/13 11:30am Office Visit [facility] 12/10/13 11:00am Registered Recurring Aida Benson [facility] 12/01/13 3:00pm Registered Clinic Aida Benson [facility] 12/01/13 2:25pm Discharged Inpatient Aida Benson [facility] 11/27/13 2:30am Office Visit [facility] 11/26/13 10:45am Office Visit [facility] 11/12/13 11:30am Office Visit [facility] 11/05/13 9:15am Discharged Inpatient Aida Benson [facility] 10/30/13 12:37pm Office Visit [facility] 10/27/13 10:45am Office Visit [facility] 10/06/13 11:15am Office Visit [facility] 09/24/13 10:00am Office Visit [facility] 09/08/13 10:30am Office Visit [facility] 08/25/13 10:00am Office Visit [facility] 08/18/13 11:00am Registered Clinic Aida Benson [facility] 08/11/13 2:45pm Office Visit AP[facility]NA R [facility] 08/11/13 2:15pm Office Visit [facility] 08/05/13 10:45am Office Visit [facility] 07/31/13 1:00pm Office Visit [facility] 07/30/13 10:05am Office Visit [facility] 07/24/13 11:30am Office Visit [facility] 07/14/13 10:30am Office Visit [facility] R [facility] 06/30/13 10:30am Recent Diagnosis Hypoxia Pneumonia
--- OUTSIDE RECORDS SUMMARY | 2016-11-10 06:34 | XMS REPORT | Referral Summary ---
Author Author [facility] [place] Organization [facility] AnnaBENEDICTO Zamarripa, [facility] [place], [facility] Address Unknown Phone Unavailable Care Team Providers Care Administrative Office Clerk Name Role Phone DemetriaHumza jaffe Primary Care Physician [phone] Encounter Date(s): 05/02/16 - 05/02/16 [facility], [facility] [address], [place] [address] Discharge Diagnosis: BEE (obstructive sleep apnea) Discharge Diagnosis: Nocturnal hypoxemia Discharge Disposition: 01-Home or Self Care Attending Physician: Acosta Garcia MD Admitting Physician: Acosta Garcia MD Vital Signs Most recent to 1 oldest [Reference Range]: Peripheral Pulse 91 bpm Rate [60-100 bpm] (05/02/16 3:36 PM) Blood Pressure 112/70 mmHg [90-140/60-90 mmHg] (05/02/16 3:36 PM) SpO2 90 % (05/02/16 3:36 PM) Problem List Condition Effective Dates Status [...]
--- OUTSIDE RECORDS SUMMARY | 2016-11-10 06:34 | XMS REPORT | Continuity of Care Document ---
Author Author [facility] Organization [facility] Address Unknown Phone Unavailable Care Team Providers Care Trimming Department Blocker Name Role Phone APARNA AGUILAR MD Unavailable [phone] Insurance Providers Payer Name Policy Number Subscriber Name Relationship Wps Medicare [id number] Amee Guillen Self / Same As Patient For Life [id number] Amee Guillen Self / Same As Patient Chief Complaint and Reason for Visit Chief Complaint Weakness Reason for Visit Weakness Problems Medical Problems Problem Onset Date Status [...] Active COPD with acute exacerbation Unknown Active Inguinal pain Unknown Active Inflamed seborrheic keratosis Unknown Active Weakness Unknown Active Medications Medication Dose Route Sig [...] TWICE A DAY 20 Qty 06/11/1121/05 Discontinued Sulfamethoxazole-Trimethoprim 1 Tab PO TWICE A [...] 05/27/13 08/25/13 Discontinued Fluticasone Propionate (Nasal) 2 [place] NA DAILY 1 Qty 05/27/13 Discontinued Levofloxacin [...] Qty 02/08/14 Active Fluticasone Propionate (Nasal) 1-2 [place] NA DAILY For STUFFY NOSE 1 Qty 02/12/14 06/02/14 Discontinued Nitroglycerin 0.4 Mg SL NEEDED For ANGINA PAIN 1 Qty 02/15/1412/14 Discontinued Sulfamethoxazole-Trimethoprim 1 Tab PO TWICE A [...] hours as needed For ANXIETY 60 Qty 12/14/14 Discontinued Colchicine 0.6 Mg PO DAILY For PAIN 90 Qty 10/12/14 Active Tamsulosin Hcl 0.4 Mg PO DAILY For DYSUREA 90 Qty 10/13/14 Active Tramadol Hcl 1-2 Tab PO Every 6 hours as needed For BREAKTHROUGH PAIN 100 Qty 10/13/14 12/20/14 Discontinued Ciprofloxacin Hcl 500 Mg PO TWICE A DAY 20 Qty 11/02/14 11/14/14 Discontinued Carvedilol 3.125 Mg PO TWICE A DAY For HEART MED 180 Qty 11/22/14 Active Levothyroxine Sodium 1 Tab PO DAILY For THYROID 90 Qty 11/22/14 Active Polyethylene Glycol 17 Gm PO DAILY 1 Qty 12/06/14 Active Nitroglycerin 0.4 Mg SL NEEDED For ANGINA PAIN 1 Qty 12/14/14 Active Lorazepam 0.5 Mg PO Every 4 hours as needed For ANXIETY 60 Qty Active Tramadol Hcl 1-2 Tab PO Every 6 hours as needed For BREAKTHROUGH PAIN 100 Qty 12/20/14 Active Sulfamethoxazole-Trimethoprim 1 Tab PO TWICE A DAY 20 Qty 12/20/14 Active Cholecalciferol 2,000 Unit PO DAILY 12/30/14 Active Ipratropium-Albuterol 1 Puffs INH FOUR TIMES DAILY 12/30/14 Active Social History Social History Problem Response Recorded Date/Time Smoking Status Former smoker 12/30/2014 11:15am Query Response Start Date Stop Date Smoking Status Former smoker Hospital Discharge Instructions No hospital discharge instructions. Plan of Care Discharge Date 12/30/14 1:40pm Disposition 01 HOME, SELF-CARE Condition at Discharge Improved/Stable Prescriptions See Medications Section Referrals APARNA AGUILAR MD Additional Instructions/Education Call your doctor for followup or return if any worsening symptoms. Functional Status No functional status results. Allergies, Adverse Reactions, Alerts Allergen Type Severity Reaction Status Last Updated Allopurinol Allergy Unknown Active 12/30/14 Codeine Allergy Unknown Active 12/30/14 Metoclopramide Allergy Unknown Active 12/30/14 Venlafaxine Allergy Unknown Active 12/30/14 Celecoxib Allergy Unknown BLISTERS Active 12/30/14 Cephalosporins Allergy Unknown Active 12/30/14 Immunizations Name Given Type Hx Hepatitis A Vaccination No Historical Td (adult), adsorbed 02/17/14 Administered Td (adult), adsorbed 02/17/14 Administered Influenza, high dose seasonal 03/07/14 Administered Influenza, high dose seasonal 03/07/14 Administered Vital Signs Acute Vital Signs Vital Response Date/Time Blood Pressure 99/59 mm Hg Blood Pressure Mean 72 mm Hg Temperature (Fahrenheit) 98.4 degrees F (96.0 - 99.9) Temperature (Calculated Celsius) 36.07073 degrees C Temperature Source Oral Temperature Source Oral Pulse Pulse Rate (adult) 91 bpm (60 - 100) Pulse Rate: ED 97 bpm Respiratory Rate 20 breaths per minute (10 - 20) Height (Feet) 5 ft Height (Inches) 6 in. Weight (Pounds) 272 lbs Height 5 ft 6 in Weight 272 lb Body Mass Index 43.9 kg/m^2 Ambulatory Vital Signs Vital Response Date/Time Height 5 ft 5 in 12/27/2014 11:17am Weight 272 lbs 12/27/2014 11:17am Blood Pressure 98/56 mm Hg 12/27/2014 11:17am Body Surface Area 2.45 m2 12/27/2014 11:17am Body Mass Index 45.3 kg/m2 12/27/2014 11:17am Results Test Source Date Result Interp. Ref. Range Comments Activated Partial Thromboplast Time September 23, 2011 6:25am 26.6 SECONDS N 23.0-32.0 COMMENT: 06 Alanine Aminotransferase (ALT/SGPT) December 30, 2014 12:20pm 19 U/L N 5-40 Albumin December 30, 2014 12:20pm 3.6 gm/dL N 3.2-5.0 Albumin/Globulin Ratio December 30, 2014 12:20pm 1.1 L 1.4-2.4 Alkaline Phosphatase December 30, 2014 12:20pm 80 U/L N 35-125 Ammonia August 28, 2010 8:20pm 28 mcg/dL N 19-60 COMMENTS?NEW ADMIT SERUM AMMONIA,SERUM MAG Anion Gap December 30, 2014 12:20pm 7.9 N 6-13 Anisocytosis December 08, 2012 8:20am 2+ COMMENT: 04 Arterial Blood HCO3 October 21, 2014 10:50am 29.9 mEq/L H 21-27 DONE ON O2 AT 4.5 LPM VIA N/C..THE RESULTS WERE GIVEN TO DR. PACKER. Arterial Blood Total CO2 October 21, 2014 10:50am 31.7 mM/L H 21-27 Arterial Blood pH October 21, 2014 10:50am 7.32 L 7.35-7.45 Aspartate Amino Transf (AST/SGOT) December 30, 2014 12:20pm 23 U/L N 5-40 Atypical Lymphocytes June 25, 2012 10:20pm 1.0 % N 0-2 COMMENT: 05 B-Type Natriuretic Peptide December 30, 2014 12:20pm 403 pg/mL H 15-100 BUN/Creatinine Ratio December 30, 2014 12:20pm 19.0 Band Neutrophils December 08, 2012 8:20am 2.0 % N 0-7 COMMENT: 04 Basophils # (Auto) December 30, 2014 12:20pm 0.0 K/uL N 0-0.2 Basophils (%) (Auto) December 30, 2014 12:20pm 0.3 % N 0-1 Basophils (Manual) February 14, [...] 103 mmHg H 89-100 Blood Urea Nitrogen December 30, 2014 12:20pm 24 mg/dL N 8-25 C-Reactive Protein June 25, 2012 10:20pm 8.0 mg/L <6.0 COMMENT: 05 Calcium Level December 30, 2014 12:20pm 8.7 mg/dL N 8.2-10.6 Carbon Dioxide Level December 30, 2014 12:20pm 33 mEq/L N 22-34 Chloride Level December 30, 2014 12:20pm 96 mEq/L L 98-116 Cholesterol Level February 20, 2002 8:12am 130 mg/dL N 120-200 Creatine Kinase MB May 21, 2014 7:40pm 4.7 ng/mL N 0.0-6.0 Creatinine December 30, 2014 12:20pm 1.26 mg/dL N 0.9-1.6 Creatinine Clearance December 21, [...] 9:42am 2.3 ng/ml PH Eosinophils # (Auto) December 30, 2014 12:20pm 0.1 K/uL N 0-0.8 Eosinophils (%) (Auto) December 30, 2014 12:20pm 0.8 % N 0-7.0 Eosinophils (Manual) February 14, 2014 6:05am 12.0 % H 0-7.0 Erythrocyte Sedimentation Rate May 29, 2010 1:10pm 7 mm/hr N 0-20 Folate August 06, 2000 6:50am See separate report ng/ml Free Thyroxine Index August 06, 2000 6:50am 5.10 N 3.6-14.0 Globulin December 30, 2014 12:20pm 3.4 gm/dL H 2.0-3.0 Glomerular Filtration Rate Calc December 30, 2014 12:20pm 55.94 mL/min MULTIPLY RESULT BY 1.210 IF THE [...] PROCEDURE - PT IN RR NOW Hematocrit December 30, 2014 12:20pm 40.5 % N 40.0-54.0 Hemoglobin December 30, 2014 12:20pm 12.4 g/dL L 14.0-18.0 Hepatitis B Surface Antibody [...] 0-0.4 COMMENT: 04 Immature Granulocyte # (Auto) December 30, 2014 12:20pm 0.02 K/uL N 0-0.40 Immature Granulocyte % (Auto) December 30, 2014 12:20pm 0.3 % N 0-0.5 InFluenza Virus Type A (H1N1) (PCR) July 09, 2014 6:15am Not detected NEGATIVE Influenza Virus Type A (PCR) July 09, 2014 6:15am Negative NEGATIVE Influenza Virus Type B (PCR) July 09, 2014 6:15am Negative NEGATIVE LDL Cholesterol February 20, 2002 8:12am 59 mg/dL N 25-160 Lab Scanned Report October 28, 2014 2:17pm Lab Scanned Report [id number] Lactate Dehydrogenase September 28, 1998 4:10pm 152 U/L N COMMENTS? CARDIAC ENZYMES NOW Lactic Acid Level May 21, 2014 7:40pm 1.2 mmol/L N 0.5-2.2 Lipase December 30, 2014 12:20pm 15 U/L N 8-57 Lymphocytes # (Auto) December 30, 2014 12:20pm 0.8 K/uL L 0.9-5.2 Lymphocytes (%) (Auto) December 30, 2014 12:20pm 10.2 % L 16.0-44.0 Lymphocytes (Manual) February 14, 2014 6:05am 26.0 % N 21.0-51.0 Macrocytosis December 08, 2012 8:20am 2+ COMMENT: 04 Magnesium Level August 27, 2011 10:20am 1.7 mg/dL N 1.3-2.5 Mean Corpuscular Hemoglobin December 30, 2014 12:20pm 30.8 pg N 26.0-33.0 Mean Corpuscular Hemoglobin Concent December 30, 2014 12:20pm 30.6 g/dL L 31.0-36.0 Mean Corpuscular Volume December 30, 2014 12:20pm 100.5 fL H 80.0-94.0 Mean Platelet Volume December 30, 2014 12:20pm 9.8 fL N 7.0-11.0 Metamyelocytes January 22, 2008 7:03pm 2.0 % Microcytosis November 03, 2006 8:55am 1+ COMMENTS?ROOM 2 Monocytes # (Auto) December 30, 2014 12:20pm 0.8 K/uL N 0.16-1.0 Monocytes (%) (Auto) December 30, 2014 12:20pm 10.0 % H 2.0-9.0 Monocytes (Manual) February 14, 2014 6:05am 16.0 % H 2.0-9.0 Myelocytes January 22, 2008 7:03pm 1.0 % Neutrophils February 14, 2014 6:05am 46.0 % N 42.0-75.0 Neutrophils # (Auto) December 30, 2014 12:20pm 6.1 K/uL N 1.9-8.0 Neutrophils (%) (Auto) December 30, 2014 12:20pm 78.4 % H 42.0-75.0 Nucleated Red Blood Cells # December 30, 2014 12:20pm 0.00 K/uL N 0.0-0.012 Nucleated Red Blood Cells % December 30, 2014 12:20pm 0.0 /100WBC N 0-0 Ovalocytes January 22, 2006 9:55pm 1+ COMMENTS?ROOM 5 Platelet Count December 30, 2014 12:20pm 105 K/uL L 130-400 Platelet Estimate August 06, 2014 5:58am Decreased NORMAL NO EVIDENCE OF PLATELET CLUMPING ON SLIDE REVIEW Poikilocytosis January 22, 2006 9:55pm 1+ COMMENTS?ROOM 5 Polychromasia August 10, 2006 10:30pm 1+ COMMENTS?ROOM 2 Potassium Level December 30, 2014 12:20pm 4.9 mEq/L N 3.5-5.1 Prealbumin May 30, 2010 [...] 11.5 SECONDS N 9.0-12.0 RDW Standard Deviation December 30, 2014 12:20pm 53.1 fL H 35.1-43.9 Random Glucose December 30, 2014 12:20pm 127 mg/dL H 65-115 Rapid Troponin I August 28, 2010 3:40pm 0.00 ng/mL N 0.00-0.03 < 0.03 ng/mL=NORMAL0.04 - 0.50 ng/mL=CARDIAC CONDITION >0.50 ng/mL=SUGGESTS AMI Red Blood Cell Morphology August 27, 2002 7:35pm Normal Red Blood Count December 30, 2014 12:20pm 4.03 M/uL L 4.60-5.40 Red Cell Distribution Width December 30, 2014 12:20pm 14.6 % H 11.5-14.5 Sodium Level December 30, 2014 12:20pm 132 mEq/L L 133-145 Stomatocytes December 08, [...] Synovial Fluid WBC September 27, 1998 12:00am 59250.0 /uL PH Target Cells August 05, 2001 7:20am 2+ COMMENTS? SEND TO [facility]SU ON ARRIVAL Thyroid Stimulating Hormone (TSH) May 29, 2010 1:10pm 10.62 uIU/ml H 0.34-5.60 Thyroxine (T4) August 06, 2000 6:50am 5.8 ug/dl N 4.7-11.5 Total Bilirubin December 30, 2014 12:20pm 0.7 mg/dL N 0.1-1.3 Total Creatine Kinase May 21, 2014 7:40pm 52 U/L N 10-180 Total Protein December 30, 2014 12:20pm 7.0 gm/dL N 6.0-8.4 Toxic Granulation May 28, [...] Trace COMMENT: 05SOURCE: URINE, RANDOM Urine Appearance December 16, 2014 10:02am Clear Urine Bacteria June 15, 2014 12:35am None /hpf NONE SOURCE: URINE , CLEAN CATCH Urine Bilirubin December 16, 2014 10:02am Negative NEGATIVE Urine Casts June 15, 2014 12:35am 3-5 hyaline /lpf NONE SOURCE: URINE, CLEAN CATCH Urine Color December 16, 2014 10:02am Yellow Urine Creatinine December 21, 1998 3:22pm 1.8 mg/dL Urine Crystals December 08, 2011 11:25am None /hpf NONE COMMENT: 05SOURCE : URINE, RANDOM Urine Epithelial Cells June 15, 2014 12:35am Occasional /lpf SOURCE: URINE, CLEAN CATCH Urine Glucose (UA) December 16, 2014 10:02am Negative NEGATIVE Urine Ketones December 16, 2014 10:02am Negative NEGATIVE Urine Leukocyte Esterase December 16, 2014 10:02am Negative NEGATIVE Urine Mucus December 08, 2011 11:25am None /lpf NONE COMMENT: 05SOURCE: URINE, RANDOM Urine Nitrate December 16, 2014 10:02am Negative NEGATIVE Urine Occult Blood December 16, 2014 10:02am Negative NEGATIVE Urine Other December 08, 2011 11:25am N COMMENT: 05SOURCE: URINE, RANDOM Urine Protein December 16, 2014 10:02am Negative NEGATIVE Urine RBC June 15, 2014 12:35am None /hpf NONE SOURCE: URINE, CLEAN CATCH Urine Specific [place] December 16, 2014 10:02am 1.015 1.005-1.030 Urine Total Protein 24 Hour March 12, 2001 11:36am 98.4 mg/24hrs N 30-150 Urine Total Volume December 10, 2001 11:20am 4475 mL Urine Uric Acid 24 Hour December 21, 1998 3:22pm 1118.0 MG/24 HR H 250-750 Urine Urobilinogen December 16, 2014 10:02am 0.2 E.U./dL 0.2-1.0 Urine WBC June 15, 2014 12:35am None /hpf NONE SOURCE: URINE, CLEAN CATCH Urine WBC Clumps December 08, 2011 11:25am 0-1 /hpf NONE COMMENT: 05SOURCE: URINE, RANDOM Urine pH December 16, 2014 10:02am 6.5 4.5-8.0 VLDL Cholesterol February 20, 2002 8:12am 22.6 [...] See separate report pg/ml White Blood Count December 30, 2014 12:20pm 7.8 K/uL N 5.0-10.0 Whole Blood Anion Gap [...] Encounters Encounter Location Date/Time Departed Emergency Room [facility] 12/30/14 11:10am Office Visit APARNA AGUILAR 12/27/14 11:15am Office Visit APARNA AGUILAR 12/20/14 1:15pm Office Visit APARNA AGUILAR 12/16/14 9:45am Office Visit APARNA AGUILAR 12/09/14 10:45am Departed Emergency Room [facility] 11/30/14 9:15am Office Visit APARNA AGUILAR 11/22/14 9:45am Office Visit APARNA AGUILAR 11/05/14 11:30am Departed Emergency Room [facility] 11/03/14 11:29[facility] 10:[facility] Office Visit APARNA AGUILAR 10/26/14 10:00am Departed Emergency Room [facility] 10/21/14 10:14am Office Visit APARNA AGUILAR 10/13/14 1:00pm Registered Clinic [facility] 10/12/14 10:45am [facility] 10:32am Office Visit APARNA R JEFF 09/28/14 10:15am Office Visit APARNA R JEFF 09/15/14 11:15am Office Visit APARNA R JEFF 09/01/14 10:45am Registered Clinic [facility] 08/31/14 10:54am Office Visit APARNA R JEFF 08/18/14 10:45am Office Visit APARNA R JEFF 08/10/14 10:30am Discharged Inpatient Aida Benson [facility] 08/04/14 4:51pm Office Visit APARNA R JEFF 08/03/14 11:15am Registered Clinic Aida [facility] 08/03/14 10:26am Office Visit APARNA R JEFF 07/22/14 10:45am Discharged Inpatient Aida Benson [facility] 07/09/14 11:21am Office Visit APARNA R JEFF 07/08/14 9:00am Registered Clinic Aida Benson [facility] 07/06/14 10:21am Office Visit APARNA R JEFF 07/02/14 10:30am Discharged Inpatient Aida Benson [facility] 06/15/14 1:11am Registered Clinic Aida [facility] 06/14/14 11:24am Office Visit APARNA R JEFF 06/14/14 11:00am Office Visit APARNA R JEFF 06/02/14 11:15am Discharged Inpatient Aida Benson [facility] 05/21/14 10:17pm Office Visit APARNA R JEFF 04/26/14 8:45am Office Visit APARNA R JEFF 04/20/14 1:30pm Registered Clinic Aida Benson [facility] 04/20/14 11:00am Office Visit APARNA R JEFF 04/14/14 11:15am Office Visit APARNA R JEFF 04/01/14 10:30am Registered Clinic Aida [facility] 03/23/14 10:53am Office Visit APARNA R JEFF 03/18/14 10:15am Office Visit APARNA R JEFF 03/11/14 11:15am Registered Clinic Aida Benson [facility] 03/09/14 11:00am Discharged Inpatient Aidaeleni Benson [facility] 03/06/14 8:25pm Office Visit APARNA R JEFF 03/05/14 11:15am Office Visit APARNA AGUILAR 03/01/14 9:15am Office Visit APARNA AGUILAR 02/26/14 10:00am Registered Clinic Aida Benson [facility] 02/23/14 11:35am Discharged Inpatient Aida Benson [facility] 02/16/14 8:34pm Discharged Inpatient Aida Benson [facility] 02/12/14 2:30am Departed Emergency Room Aida Benson [facility] 02/08/14 10:15am Office Visit APARNA AGUILAR 02/02/14 2:15pm Registered Clinic Aida [facility] 02/02/14 1:31pm Office Visit APARNA AGUILAR 01/21/14 10:00am Registered Clinic Aida [facility] 01/12/14 11:43am Office Visit APARNA AGUILAR 01/07/14 10:00am Recent Diagnosis
--- OUTSIDE RECORDS SUMMARY | 2016-11-10 06:34 | XMS REPORT | Continuity of Care Document ---
Author Author [facility] Organization [facility] Address Unknown Phone Unavailable Care Team Providers Care Entertainment Reporter Name Role Phone APARNA AGUILAR MD Unavailable [phone] Insurance Providers Payer Name Policy Number Subscriber Name Relationship Wps Medicare [id number] Amee Guillen 01 Self / Same As Patient For Life [id number] Amee Guillen Self / Same As Patient [...] 05/27/13 08/25/13 Discontinued Fluticasone Propionate (Nasal) 2 [place] NA DAILY 1 Qty 05/27/13 Discontinued Levofloxacin [...] Qty 02/08/14 Active Fluticasone Propionate (Nasal) 1-2 [place] NA DAILY For STUFFY NOSE 1 Qty [...] TWICE A DAY 20 Qty 09/28/14 Active Colchicine 0.6 Mg PO DAILY For PAIN 90 Qty 10/12/14 Active Social History Social History Problem Response [...] Vital Signs Vital Response Date/Time Blood Pressure 118/70 mm Hg Blood Pressure Mean 74 mm Hg Blood Pressure Mean 79 mm Hg Temperature (Fahrenheit) 98.0 degrees F (96.0 - 99.9) Temperature (Calculated Celsius) 36.78805 degrees C Temperature (Calculated Celsius) 36.86140 degrees C (36.4 - 37.5) Temperature (Fahrenheit) 98.4 degrees F (96.0 - 99.9) Temperature Source Oral Temperature Source Oral Temp 98.4 degrees F (96.0 - 99.9) Temperature (Calculated Celsius) 36.59345 degrees C Pulse Pulse Rate (adult) 100 bpm (60 - 100) Pulse Rate (adult) [...] April 29, 2014 8:54am Lab Scanned Report [id number] Lactate Dehydrogenase September 28, 1998 4:10pm 152 [...] Synovial Fluid WBC September 27, 1998 12:00am 97150.0 /uL PH Target Cells August 05, 2001 [...] NONE SOURCE: URINE, CLEAN CATCH Urine Specific [place] July 09, 2014 6:35am 1.015 1.005-1.030 SOURCE: [...] Encounters Encounter Location Date/Time Registered Clinic [facility] 10/12/14 10:45am Registered Clinic [facility] 09/28/14 10:32am Office Visit APARNA TURCIOSS 09/28/14 10:15am Office Visit APARNA TURCIOSS 09/15/14 11:15am Office Visit APARNA TURCIOSS 09/01/14 10:45am Registered Clinic [facility] 08/31/14 10:54am Office Visit APARNA TURCIOSS 08/18/14 10:45am Office Visit APARNA TURCIOSS 08/10/14 10:30am Discharged Inpatient [facility] 08/04/14 4:51pm Office Visit APARNA TURCIOSS 08/03/14 11:15am Registered Clinic [facility] 08/03/14 10:26am Office Visit APARNA TURCIOSS 07/22/14 10:45am Discharged Inpatient [facility] 07/09/14 11:21am Office Visit APARNA TURCIOSS 07/08/14 9:00am Registered Clinic [facility] 07/06/14 10:21am Office Visit APARNA TURCIOSS 07/02/14 10:30am Discharged Inpatient [facility] 06/15/14 1:11am Registered Clinic [facility] 06/14/14 11:24am Office Visit APARNA TURCIOSS 06/14/14 11:00am Office Visit APARNA TURCIOSS 06/02/14 11:15am Discharged Inpatient [facility] 05/21/14 10:17pm Office Visit APARNA R JEFF 04/26/14 8:45am Office Visit APARNA R JEFF 04/20/14 1:30pm Registered Clinic Aida Benson [facility] 04/20/14 11:00am Office Visit APARNA R JEFF 04/14/14 11:15am Office Visit APARNA R JEFF 04/01/14 10:30am Registered Clinic [facility] 03/23/14 10:53am Office Visit APARNA R JEFF 03/18/14 10:15am Office Visit APARNA R JEFF 03/11/14 11:15am Registered Clinic Aida [facility] 03/09/14 11:00am Discharged Inpatient Aida [facility] 03/06/14 8:25pm Office Visit APARNA R JEFF 03/05/14 11:15am Office Visit APARNA R JEFF 03/01/14 9:15am Office Visit AAPRNA R JEFF 02/26/14 10:00am Registered Clinic Aida Benson [facility] 02/23/14 11:35am Discharged Inpatient Aida [facility] 02/16/14 8:34pm Discharged Inpatient Aida [facility] 02/12/14 2:30am Departed Emergency Room [facility] 02/08/14 10:15am Office Visit APARNA R JEFF 02/02/14 2:15pm Registered Clinic [facility] 02/02/14 1:31pm Office Visit APARNA R JEFF 01/21/14 10:00am Registered Clinic [facility] 01/12/14 11:43am Office Visit APARNA R JEFF 01/07/14 10:00am Registered Clinic [facility] 12/22/13 12:49pm Office Visit APARNA R JEFF 12/22/13 11:30am Office Visit APARNA R JEFF 12/10/13 11:00am Registered Recurring Aida Benson [facility] 12/01/13 3:00pm Registered Clinic [facility] 12/01/13 2:25pm Discharged Inpatient Aida [facility] 11/27/13 2:30am Office Visit APARNA R JEFF 11/26/13 10:45am Office Visit APARNA AGUILAR 11/12/13 11:30am Office Visit APARNA AGUILAR 11/05/13 9:15am Discharged Inpatient A[facility] 10/30/13 12:37pm Office Visit APARNA AGUILAR 10/27/13 10:45am
--- OUTSIDE RECORDS SUMMARY | 2016-11-10 06:35 | XMS REPORT | Continuity of Care Document ---
Author Author [facility] Organization [facility] Address Unknown Phone Unavailable Care Team Providers Care Registered Safety Engineer Name Role Phone APARNA AGUILAR MD Unavailable [phone] Insurance Providers Payer Name Policy Number Subscriber Name Relationship Wps Medicare [id number] Amee Guillen Self / Same As Patient For Life [id number] Amee Guillen Self / Same As Patient Chief Complaint and Reason for Visit Chief Complaint Dyspnea Reason for Visit Atrial fibrillation Community acquired pneumonia Problems Medical Problems Problem Onset Date Status [...] 05/27/13 08/25/13 Discontinued Fluticasone Propionate (Nasal) 2 [place] NA DAILY 1 Qty 05/27/13 Discontinued Levofloxacin 500 Mg PO DAILY 10 Qty 05/29/13 07/31/13 Discontinued Magnesium Oxide 400 Mg PO TWICE A DAY 180 Qty 06/30/13 Active Fluconazole 100 Mg PO WEEKLY 12 Qty 06/30/13 Active Tamsulosin Hcl 0.4 Mg PO DAILY 90 Qty 06/30/13 Active Fluticasone Propionate (Nasal) 2 [place] NA DAILY 3 Qty 06/30/13 Active Minocycline [...] Qty 02/08/14 Active Fluticasone Propionate (Nasal) 1-2 [place] NA DAILY 1 Qty 02/12/14 Active Nitroglycerin [...] Tolerated Physician Follow-up Appt #1: Dr Aguilar [phone] F/U Appt: One Week Discharge Instructions 1. Follow up with Dr Aguilar within 1 week 2. Return to the ED for evaluation if any concerns. Signs/Symptoms -notify Doctor: Fever above 101 deg, Shortness of Breath, Chilling Nursing Instructions Physician Follow-up Appointment: Dr Aguilar [phone] Scheduled Date: 02/26/14 Scheduled Time: 10 am [...] of Care Discharge Date 02/19/14 4:30pm Disposition 09 ADMITTED INPATIENT Condition at Discharge Critical Prescriptions See Medications Section Referrals APARNA AGUILAR [...] Administered Hx Hepatitis A Vaccination No Historical Td (adult), adsorbed 02/17/14 Administered Td (adult), adsorbed 02/17/14 Administered Vital Signs Acute Vital Signs Vital Response Date/Time Blood Pressure 106/72 mm Hg 02/23/2014 11:41am Temperature (Fahrenheit) 97.9 degrees F (96.0 - 99.9) 02/23/2014 11:41am Temperature Source Oral 02/23/2014 11:41am Pulse 02/23/2014 11:41am Pulse Rate (adult) 107 bpm (60 - 100) 02/23/2014 11:41am Ambulatory Vital Signs Vital Response Date/Time Height [...] January 26, 2014 2:09pm Lab Scanned Report [id number] Lactate Dehydrogenase September 28, 1998 4:10pm 152 [...] Synovial Fluid WBC September 27, 1998 12:00am 82200.0 /uL PH Target Cells August 05, 2001 [...] 05SOURCE : URINE, CLEAN CATCH Urine Specific [place] February 16, 2014 10:54pm 1.010 1.005-1.030 HAS [...] Encounter Location Date/Time Registered Clinic [facility] 02/23/14 11:35am Discharged Inpatient [facility] 02/16/14 8:34pm Discharged Inpatient Corinne Ram[facility] 02/12/14 2:30am Departed Emergency Room [facility] 02/08/14 10:15am Office Visit APARNA AGUILAR 02/02/14 2:15pm Registered Clinic [facility] 02/02/14 1:31pm Office Visit APARNA AGUILAR 01/21/14 10:00am Registered Clinic [facility] 01/12/14 11:43am Office Visit APARNA AGUILAR 01/07/14 10:00am Registered Clinic [facility] 12/22/13 12:49pm Office Visit APARNA AGUILAR 12/22/13 11:30am Office Visit [facility] TURCIOSS 12/10/13 11:[facility] Reg[facility] 12/01/13 2:25pm Discharged Inpatient Aida Ramon [facility] 11/27/13 2:30am Office Visit APARNA AGUILAR 11/26/13 10:45am Office Visit APARNA AGUILAR 11/12/13 11:30am Office Visit APARNA R JEFF 11/05/13 9:15am Discharged Inpatient [facility] 10/30/13 12:37pm Office Visit APARNA R JEFF 10/27/13 10:45am Office Visit APARNA R JEFF 10/06/13 11:15am Office Visit APARNA R JEFF 09/24/13 10:00am Office Visit APARNA R JEFF 09/08/13 10:30am Office Visit APARNA R JEFF 08/25/13 10:00am Office Visit APARNA R JEFF 08/18/13 11:00am Registered Clinic [facility] 08/11/13 2:45pm Office Visit APARNA R JEFF 08/11/13 2:15pm Office Visit APARNA R JEFF 08/05/13 10:45am Office Visit APARNA R JEFF 07/31/13 1:00pm Office Visit AP[facility]NA R JEFF 07/30/13 10:05am Office Visit APARNA R JEFF 07/24/13 11:30am Office Visit APARNA R JEFF 07/14/13 10:30am Office Visit AAPRNA R JEFF 06/30/13 10:30am Registered Clinic [facility] 06/09/13 11:37am Office Visit APARNA R JEFF 06/09/13 11:30am Registered Clinic [facility] 06/02/13 11:35am Office Visit APARNA R JEFF 06/02/13 11:15am Discharged Inpatient [facility] 05/28/13 7:10am Office Visit APARNA R JEFF 05/27/13 1:00pm Discharged Inpatient [facility] 05/25/13 9:20am Office Visit APARNA R JEFF 05/19/13 11:15am Registered Clinic [facility] 05/12/13 1:36pm Office Visit APARNA R JEFF 05/12/13 1:15pm Office Visit AP[facility]NA R JEFF 05/06/13 11:15am Office Visit APARNA R JEFF 04/22/13 11:00am Office Visit [facility]NA R JEFF 04/09/13 10:30am Office Visit [facility]NA R JEFF 03/26/13 11:00am Office Visit [facility]NA R JEFF 03/12/13 10:15am Office Visit APARNA AGUILAR 03/04/13 10:45am Office Visit APARNA AGUILAR 02/26/13 10:30am
--- OUTSIDE RECORDS SUMMARY | 2016-11-10 06:36 | XMS REPORT | Continuity of Care Document ---
Author Author [facility] Organization [facility] Address Unknown Phone Unavailable Care Team Providers Care Curriculum Advisory Teacher Name Role Phone APARNA AGUILAR MD Unavailable [phone] Insurance Providers Payer Name Policy Number Subscriber Name Relationship Wps Medicare [id number] Amee Guillen Self / Same As Patient For Life [id number] Amee Guillen Self / Same As Patient Chief Complaint and Reason for Visit Chief Complaint Dyspnea Reason for Visit [id number] Problems Medical Problems Problem Onset Date Status [...] 05/27/13 08/25/13 Discontinued Fluticasone Propionate (Nasal) 2 [place] NA DAILY 1 Qty 05/27/13 Discontinued [...] Qty 02/08/14 Active Fluticasone Propionate (Nasal) 1-2 [place] NA DAILY For STUFFY NOSE 1 [...] Mg PO TWICE A DAY 60 Qty 12/10/14 Active Lorazepam 0.5 Mg PO Every 4 [...] sufficient to end on 08/10/14 08/07/14 Active Sertraline Hcl 100 Mg PO DAILY [...] For BREAKTHROUGH PAIN 100 Qty 10/13/14 Active Prednisone 40 Mg PO daily For Dyspnea 5 Days 10/21/14 Active Sulfamethoxazole-Trimethoprim 1 Tab PO TWICE A DAY 20 Qty 10/26/14 Active Ciprofloxacin Hcl 500 Mg PO TWICE A DAY 20 Qty 11/02/14 Active Prednisone 10 Mg PO DIRECTED For COPD 30 Qty 30 mg po daily x 3 days then 11/03/14 Active Social History Social History Problem Response Recorded Date/Time Smoking Status Former smoker 11/03/2014 11:30am Query Response Start Date Stop Date Smoking Status Former smoker Hospital Discharge Instructions No hospital discharge instructions. Plan of Care Discharge Date 11/03/14 2:37pm Disposition 01 HOME, SELF-CARE Condition at Discharge Stable Prescriptions See Medications Section Referrals APARNA AGUILAR MD Additional Instructions/Education RETURN IF ANY CONCERNS OR WORSENING Functional Status No functional status results. Allergies, Adverse Reactions, Alerts Allergen Type Severity Reaction Status Last Updated Allopurinol Allergy Unknown Active 02/11/15 Codeine Allergy Unknown Active 08/04/14 Metoclopramide Allergy [...] Vital Signs Vital Response Date/Time Blood Pressure 108/68 mm Hg Blood Pressure Mean 74 mm Hg Blood Pressure Mean 81 mm Hg Temperature (Fahrenheit) 97.5 degrees F (96.0 - 99.9) Temperature (Calculated Celsius) 36.58615 degrees C Temperature (Calculated Celsius) 36.64922 degrees C (36.4 - 37.5) Temperature (Fahrenheit) 98.4 degrees F (96.0 - 99.9) Temperature Source Oral Temperature Source Oral Temp 98.4 degrees F (96.0 - 99.9) Temperature (Calculated Celsius) 36.02196 degrees C Pulse Pulse Rate (adult) 79 bpm (60 - 100) Pulse Rate (adult) 115 bpm (60 - 100) Pulse Rate: ED 80 bpm Respiratory Rate 18 breaths per minute (10 - 20) Respiratory Rate 14 bpm (10 - 20) Height (Feet) 5 ft Height (Inches) 6 in. Weight (Pounds) 260 lbs Ambulatory Vital Signs Vital Response Date/Time Height 5 ft 5 in 10/26/2014 10:01am Weight 260 lbs 10/26/2014 10:01am Blood Pressure 98/60 mm Hg 10/26/2014 10:01am Body Surface Area 2.39 m2 10/26/2014 10:01am Body Mass Index 43.3 kg/m2 10/26/2014 10:01am Results Test Source Date Result Interp. Ref. Range Comments Activated Partial Thromboplast Time September 23, 2011 6:25am 26.6 SECONDS N 23.0-32.0 COMMENT: 06 Alanine Aminotransferase (ALT/SGPT) November 03, 2014 12:06pm 34 U/L N 5-40 Albumin November 03, 2014 12:06pm 3.6 gm/dL N 3.2-5.0 Albumin/Globulin Ratio November 03, 2014 12:06pm 1.1 L 1.4-2.4 Alkaline Phosphatase November 03, 2014 12:06pm 72 U/L N 35-125 Ammonia August 28, 2010 8:20pm 28 mcg/dL N 19-60 COMMENTS?NEW ADMIT SERUM AMMONIA,SERUM MAG Anion Gap November 03, 2014 12:06pm 6.7 N 6-13 Anisocytosis December 08, 2012 8:20am 2+ COMMENT: 04 Arterial Blood HCO3 October 21, 2014 10:50am 29.9 mEq/L H 21-27 DONE ON O2 AT 4.5 LPM VIA N/C..THE RESULTS WERE GIVEN TO DR. PACKER. Arterial Blood Total CO2 October 21, 2014 10:50am 31.7 mM/L H 21-27 Arterial Blood pH October 21, 2014 10:50am 7.32 L 7.35-7.45 Aspartate Amino Transf (AST/SGOT) November 03, 2014 12:06pm 26 U/L N 5-40 Atypical Lymphocytes June 25, 2012 10:20pm 1.0 % N 0-2 COMMENT: 05 B-Type Natriuretic Peptide November 03, 2014 12:06pm 255 pg/mL H 15-100 BUN/Creatinine Ratio November 03, 2014 12:06pm 25.9 Band Neutrophils December 08, 2012 8:20am 2.0 % N 0-7 COMMENT: 04 Basophils # (Auto) November 03, 2014 12:06pm 0.1 K/uL N 0-0.2 Basophils (%) (Auto) November 03, 2014 12:06pm 0.8 % N 0-1 Basophils (Manual) February 14, [...] mmHg H 89-100 Blood Urea Nitrogen November 03, 2014 12:06pm 22 mg/dL N 8-25 C-Reactive Protein June 25, 2012 10:20pm 8.0 mg/L <6.0 COMMENT: 05 Calcium Level November 03, 2014 12:06pm 8.7 mg/dL N 8.2-10.6 Carbon Dioxide Level November 03, 2014 12:06pm 33 mEq/L N 22-34 Chloride Level November 03, 2014 12:06pm 99 mEq/L N 98-116 Cholesterol Level February 20, 2002 8:12am 130 mg/dL N 120-200 Creatine Kinase MB May 21, 2014 7:40pm 4.7 ng/mL N 0.0-6.0 Creatinine November 03, 2014 12:06pm 0.85 mg/dL L 0.9-1.6 Creatinine Clearance December 21, [...] 2.3 ng/ml PH Eosinophils # (Auto) November 03, 2014 12:06pm 0.4 K/uL N 0-0.8 Eosinophils (%) (Auto) November 03, 2014 12:06pm 6.3 % N 0-7.0 Eosinophils (Manual) February 14, 2014 6:05am 12.0 % H 0-7.0 Erythrocyte Sedimentation Rate May 29, 2010 1:10pm 7 mm/hr N 0-20 Folate August 06, 2000 6:50am See separate report ng/ml Free Thyroxine Index August 06, 2000 6:50am 5.10 N 3.6-14.0 Globulin November 03, 2014 12:06pm 3.2 gm/dL H 2.0-3.0 Glomerular Filtration Rate Calc November 03, 2014 12:06pm > 60.00 mL/min MULTIPLY RESULT BY 1.210 [...] - PT IN RR NOW Hematocrit November 03, 2014 12:06pm 42.6 % N 40.0-54.0 Hemoglobin November 03, 2014 12:06pm 13.7 g/dL L 14.0-18.0 Hepatitis B Surface [...] COMMENT: 04 Immature Granulocyte # (Auto) November 03, 2014 12:06pm 0.02 K/uL N 0-0.40 Immature Granulocyte % (Auto) November 03, 2014 12:06pm 0.3 % N 0-0.5 InFluenza Virus Type A (H1N1) (PCR) July 09, 2014 6:15am Not detected NEGATIVE Influenza Virus Type A (PCR) July 09, 2014 6:15am Negative NEGATIVE Influenza Virus Type B (PCR) July 09, 2014 6:15am Negative NEGATIVE LDL Cholesterol February 20, 2002 8:12am 59 mg/dL N 25-160 Lab Scanned Report October 28, 2014 2:17pm Lab Scanned Report [id number] Lactate Dehydrogenase September 28, 1998 4:10pm 152 U/L N COMMENTS? CARDIAC ENZYMES NOW Lactic Acid Level May 21, 2014 7:40pm 1.2 mmol/L N 0.5-2.2 Lipase May 21, 2014 7:40pm 17 U/L N 8-57 Lymphocytes # (Auto) November 03, 2014 12:06pm 1.4 K/uL N 0.9-5.2 Lymphocytes (%) (Auto) November 03, 2014 12:06pm 21.6 % N 16.0-44.0 Lymphocytes (Manual) February 14, 2014 6:05am 26.0 % N 21.0-51.0 Macrocytosis December 08, 2012 8:20am 2+ COMMENT: 04 Magnesium Level August 27, 2011 10:20am 1.7 mg/dL N 1.3-2.5 Mean Corpuscular Hemoglobin November 03, 2014 12:06pm 30.8 pg N 26.0-33.0 Mean Corpuscular Hemoglobin Concent November 03, 2014 12:06pm 32.2 g/dL N 31.0-36.0 Mean Corpuscular Volume November 03, 2014 12:06pm 95.7 fL H 80.0-94.0 Mean Platelet Volume November 03, 2014 12:06pm 9.3 fL N 7.0-11.0 Metamyelocytes January 22, 2008 7:03pm 2.0 % Microcytosis November 03, 2006 8:55am 1+ COMMENTS?ROOM 2 Monocytes # (Auto) November 03, 2014 12:06pm 0.7 K/uL N 0.16-1.0 Monocytes (%) (Auto) November 03, 2014 12:06pm 11.9 % H 2.0-9.0 Monocytes (Manual) February 14, 2014 6:05am 16.0 % H 2.0-9.0 Myelocytes January 22, 2008 7:03pm 1.0 % Neutrophils February 14, 2014 6:05am 46.0 % N 42.0-75.0 Neutrophils # (Auto) November 03, 2014 12:06pm 3.7 K/uL N 1.9-8.0 Neutrophils (%) (Auto) November 03, 2014 12:06pm 59.1 % N 42.0-75.0 Nucleated Red Blood Cells # November 03, 2014 12:06pm 0.00 K/uL N 0.0-0.012 Nucleated Red Blood Cells % November 03, 2014 12:06pm 0.0 /100WBC N 0-0 Ovalocytes January 22, 2006 9:55pm 1+ COMMENTS?ROOM 5 Platelet Count November 03, 2014 12:06pm 148 K/uL N 130-400 Platelet Estimate August 06, 2014 5:58am Decreased NORMAL NO EVIDENCE OF PLATELET CLUMPING ON SLIDE REVIEW Poikilocytosis January 22, 2006 9:55pm 1+ COMMENTS?ROOM 5 Polychromasia August 10, 2006 10:30pm 1+ COMMENTS?ROOM 2 Potassium Level November 03, 2014 12:06pm 3.7 mEq/L N 3.5-5.1 Prealbumin May 30, 2010 [...] SECONDS N 9.0-12.0 RDW Standard Deviation November 03, 2014 12:06pm 51.6 fL H 35.1-43.9 Random Glucose November 03, 2014 12:06pm 82 mg/dL N 65-115 Rapid Troponin I August 28, 2010 3:40pm 0.00 ng/mL N 0.00-0.03 < 0.03 ng/mL=NORMAL0.04 - 0.50 ng/mL=CARDIAC CONDITION >0.50 ng/mL=SUGGESTS AMI Red Blood Cell Morphology August 27, 2002 7:35pm Normal Red Blood Count November 03, 2014 12:06pm 4.45 M/uL L 4.60-5.40 Red Cell Distribution Width November 03, 2014 12:06pm 14.7 % H 11.5-14.5 Sodium Level November 03, 2014 12:06pm 135 mEq/L N 133-145 Stomatocytes December 08, 2012 [...] Synovial Fluid WBC September 27, 1998 12:00am 14029.0 /uL PH Target Cells August 05, 2001 7:20am 2+ COMMENTS? SEND TO [facility] ON ARRIVAL Thyroid Stimulating Hormone (TSH) May 29, 2010 1:10pm 10.62 uIU/ml H 0.34-5.60 Thyroxine (T4) August 06, 2000 6:50am 5.8 ug/dl N 4.7-11.5 Total Bilirubin November 03, 2014 12:06pm 0.6 mg/dL N 0.1-1.3 Total Creatine Kinase May 21, 2014 7:40pm 52 U/L N 10-180 Total Protein November 03, 2014 12:06pm 6.8 gm/dL N 6.0-8.4 Toxic Granulation May 28, [...] NONE SOURCE: URINE, CLEAN CATCH Urine Specific [place] July 09, 2014 6:35am 1.015 1.005-1.030 SOURCE: [...] separate report pg/ml White Blood Count November 03, 2014 12:06pm 6.2 K/uL N 5.0-10.0 Whole Blood Anion Gap [...] Encounters Encounter Location Date/Time Departed Emergency Room [facility] 11/03/14 11:29am Registered Clinic [facility] 10/26/14 10:38am Office Visit APARNA AGUILAR 10/26/14 10:00am Departed Emergency Room [facility] 10/21/14 10:14am Office Visit APARNA AGUILAR 10/13/14 1:00pm Registered Clinic [facility] 10/12/14 10:45am Registered Clinic [facility] 09/28/14 10:32am Office Visit APARNA AGUILAR 09/28/14 10:15am Office Visit APARNA AGUILAR 09/15/14 11:15am Office Visit APARNA AGUILAR 09/01/14 10:45am Registered Clinic [facility] 08/31/14 10:54am Office Visit APARNA R JEFF 08/18/14 10:45am Office Visit APARNA R JEFF 08/10/14 10:30am Discharged Inpatient [facility] 08/04/14 4:51pm Office Visit APARNA R JEFF 08/03/14 11:15am Registered Clinic [facility] 08/03/14 10:26am Office Visit APARNA R JEFF 07/22/14 10:45am Discharged Inpatient Aida [facility] 07/09/14 11:21am Office Visit APARNA R JEFF 07/08/14 9:00am Registered Clinic [facility] 07/06/14 10:21am Office Visit APARNA R JEFF 07/02/14 10:30am Discharged Inpatient Aida [facility] 06/15/14 1:11am Registered Clinic [facility] 06/14/14 11:24am Office Visit APARNA R JEFF 06/14/14 11:00am Office Visit APARNA R JEFF 06/02/14 11:15am Discharged Inpatient Aiad [facility] 05/21/14 10:17pm Office Visit APARNA R JEFF 04/26/14 8:45am Office Visit APARNA R JEFF 04/20/14 1:30pm Registered Clinic [facility] 04/20/14 11:00am Office Visit APARNA R JEFF 04/14/14 11:15am Office Visit APARNA R JEFF 04/01/14 10:30am Registered Clinic [facility] 03/23/14 10:53am Office Visit APARNA R JEFF 03/18/14 10:15am Office Visit APARNA R JEFF 03/11/14 11:15am Registered Clinic [facility] 03/09/14 11:00am Discharged Inpatient Aida [facility] 03/06/14 8:25pm Office Visit APARNA R JEFF 03/05/14 11:15am Office Visit APARNA R JEFF 03/01/14 9:15am Office Visit APARNA R JEFF 02/26/14 10:00am Registered Clinic [facility] 02/23/14 11:35am Discharged Inpatient Aida [facility] 02/16/14 8:34pm Discharged Inpatient Aida [facility] 02/12/14 2:30am Departed Emergency Room [facility]ida [facility] 02/08/14 10:15am Office Visit APARNA AGUILAR 02/02/14 2:15pm Registered Clinic [facility] 02/02/14 1:31pm Office Visit APARNA AGUILAR 01/21/14 10:00am Registered Clinic [facility] 01/12/14 11:43am Office Visit APARNA AGUILAR 01/07/14 10:00am Registered Clinic [facility] 12/22/13 12:49pm Office Visit APARNA AGUILAR 12/22/13 11:30am Office Visit APARNA AGUILAR 12/10/13 11:00am Registered [facility] 12/01/13 3:00pm Registered Clinic [facility] 12/01/13 2:25pm Discharged Inpatient [facility] 11/27/13 2:30am Office Visit APARNA AGUILAR 11/26/13 10:45am Office Visit APARNA AGUILAR 11/12/13 11:30am Office Visit APARNA AGUILAR 11/05/13 9:15am Recent Diagnosis
--- OUTSIDE RECORDS SUMMARY | 2016-11-10 06:36 | XMS REPORT | Continuity of Care Document ---
Author Author Aida Benson [facility] Aida Benson [facility] Address Unknown Phone Unavailable Care Team Providers Care Cosmetic Chemist Name Role Phone APARNA AGUILAR MD Primary Care Physician [phone] Insurance Providers Guarantor Amee Anderson Address [address] [place] [address] Payer For Life Policy Number [id number] Subscriber's Name Amee Anderson Relationship 01 Self / Same As Patient Group Number [id number] Group Name [employer] Effective Date 13 Payer s Medicare Policy Number [id number] Subscriber's Name Amee Anderson Relationship 01 Self [...] Tablet 06/29/15 Fluticasone Propionate (Flonase 0.05% Nasal [place]) 16 Gm Inha 1-2 [place] Nasal Daily 1 Btl 05/24/15 Furosemide (Lasix [...] Propionate (Nasal) (Flonase) 0.05 % Spr, 1-2 [place] Nasal Daily for Stuffy Nose 02/12/14 Discontinued Fluticasone Propionate (Nasal) (Flonase) 0.05 % Spr, 2 [place] Nasal Daily 10/04 Discontinued Furosemide (Lasix 80 [...] Medication Section Referrals APARNA AGUILAR MD Address: [address] [place] [id number] Functional Status No functional status results. Allergies, Adverse Reactions, Alerts Allergen Type Severity Reaction Status Last Updated Allopurinol ([id number]) Allergy Unknown Active 06/16/15 Codeine ([id number]) Adverse Reaction Unknown Active 06/16/15 Metoclopramide ([id number]) Allergy Unknown Active 06/16/15 Venlafaxine ([id number]) Allergy Unknown Active 06/16/15 Celecoxib ([id number]) Adverse Reaction Unknown Active 06/16/15 Cephalosporins ([id number]) Allergy Unknown Active 06/16/15 Immunizations Immunization Event Date Type Not Given Reason Dose Number Lot Number [employer] [place] Influenza Vaccine, Inactivated 03/24/12 Administered 1 [id number] Sanofi Influenza Vaccine, Inactivated 04/09/13 Administered 2 [id number] SANOFI Pneumococcal Polysaccharide Vaccine 23 07/30/05 Administered 1 Influenza, high dose, seasonal 03/17/15 Historical 1 Query Response on File Recorded Date/Time Hx Hepatitis A Vaccination No 06/28/16 12:25am Vital Signs Acute Vital Signs Vital Response Date/Time Blood Pressure 163/85 mm Hg 07/09/2016 10:40am Blood Pressure Mean 111 mm Hg 07/09/2016 10:40am Temperature (Fahrenheit) 100.8 degrees F (96.0 - 99.9) 07/09/2016 9:56am Temperature (Calculated Celsius) 38.28413 degrees C 07/09/2016 9:56am Temperature Source Oral 06/29/2016 10:55am Temperature Source Axillary 07/09/2016 9:56am Pulse Pulse Rate (adult) 136 bpm (60 - 100) 07/09/2016 10:40am Pulse Rate: ED 139 bpm 07/09/2016 10:40am Respiratory Rate 12 breaths per minute (10 - 20) 07/09/2016 10:40am Height (Feet) 5 ft 07/09/2016 7:50am Height [...] H 0.0-100.0 11/14/2015 11:18am 1:37pm Performed at: [address] [id number] Lehr Attendant: ROJAS Whitaker MD, Phone: [phone] Glycated Hemoglobin 6.0 % 4.0-6.0 12/08/2015 12:12pm 12/09/2015 3:53pm Hemoglobin A1c 6.6 % H 4.8-5.6 04/17/2016 11:35am 04/18/2016 10:06am Performed at: [address] [id number] [place]hr Attendant: ROJAS Whitaker MD, Phone: [phone] Magnesium Level 2.2 mg/dL 1.6-2.3 04/17/2016 11:35am 04/18/2016 8:01am Performed at: [address], [place], [place] [id number] Lehr Attendant: ROJAS Whitaker MD, Phone: [phone] White Blood Count 4.1 x10E3/uL 3.4-10.8 04/17/2016 [...] 04/18/2016 6:08am Performed at: [facility] [address] [address], [place], [place] [id number] Lehr Attendant: ROJAS Whitaker MD, Phone: [phone] Glucose Level 90 mg/dL 65-99 04/17/2016 11:35am [...] IU/L 0-44 04/17/2016 11:35am 7:18am Performed at: [facility] [id number] Lehr Attendant: ROJAS Whitaker MD, Phone: [phone] EGFR IF NONAFRICN AM 72 >59 04/17/2016 [...] NEGATIVE 06/26/2016 6:35am 06/26/2016 7:11am Urine Specific [place] 1.020 1.005-1.030 06/26/2016 6:35am 2016 7:11am Urine [...] Mean Corpuscular Hemoglobin 29.3 pg 26.0-33.0 07/09/2016 8:042016 8:52am Mean Corpuscular Hemoglobin Concent 29.0 g/dL L 31.0-36.0 07/09/2016 8: 07/09/2016 8:52am Red Cell Distribution Width 13.9 % 11.5-14.5 07/09/2016 8:042016 8:52am RDW Standard Deviation 52.0 fL H 35.1-43.9 07/09/2016 8:07/09/2016 8:52am Platelet Count 175 K/uL 130-400 07/09/2016 8:07/09/2016 8:52am Mean Platelet Volume 10.3 fL 7.0-11.0 07/09/2016 8:0407/09/2016 8: 52am Neutrophils (%) (Auto) 77.4 % H 42.0-75.0 07/09/2016 8:07/09/2016 8 :52am Lymphocytes (%) (Auto) 13.4 % L 16.0-44.0 07/09/2016 8:07/09/2016 8 :52am Monocytes (%) (Auto) 6.2 % 2.0-9.0 07/09/2016 8:07/09/2016 8:52am Eosinophils (%) (Auto) 2.4 % 0-7.0 07/09/2016 8:07/09/2016 8:52am Basophils (%) (Auto) 0.4 % 0-1 07/09/2016 8:07/09/2016 8:52am Immature Granulocyte % (Auto) 0.2 % 0-0.5 07/09/2016 8:07/09/2016 8:52am Nucleated Red Blood Cells % 0.0 /100WBC 0-0 07/09/2016 8:2016 8:52am Neutrophils # (Auto) 7.8 K/uL 1.9-8.0 07/09/2016 8:04am 07/09/2016 8: 52am Lymphocytes # (Auto) 1.3 K/uL 0.9-5.2 07/09/2016 8:04am 07/09/2016 8: 52am Monocytes # (Auto) 0.6 K/uL 0.16-1.0 07/09/2016 8:04am 07/09/2016 8: 52am Eosinophils # (Auto) 0.2 K/uL 0-0.8 07/09/2016 8:04am 07/09/2016 8: 52am Basophils # (Auto) 0.0 K/uL 0-0.2 07/09/2016 8:04am 07/09/2016 8:52am Immature Granulocyte # (Auto) 0.02 K/uL 0-0.40 07/09/2016 8:04am 2016 8:52am Nucleated Red Blood Cells # 0.00 K/uL 0.0-0.012 07/09/2016 8:04am 07/09 8:52am Random Glucose 189 mg/dL H 65-115 07/09/2016 8:04am 07/09/2016 9:03am Blood Urea Nitrogen 22 mg/dL 8-25 07/09/2016 8:04am 07/09/2016 9:03am Creatinine 1.19 mg/dL 0.9-1.6 07/09/2016 8:0407/09/2016 9:03am Glomerular Filtration Rate Calc 59.44 mL/min 07/09/2016 8:042016 9:03am MULTIPLY RESULT BY 1.210 IF THE PATIENT IS -ARMENIAN Units are mL/min/1.73 m2 > 60 Normal kidney function 30-59 Moderately decreased kidney function 15-29 Severely decreased kidney function <15 End-stage kidney failure BUN/Creatinine Ratio 18.5 07/09/2016 8:04am 07/09/2016 9:03am Sodium Level 137 mEq/L 133-145 07/09/2016 8:04am 07/09/2016 9:03am Potassium Level 4.3 mEq/L 3.5-5.1 07/09/2016 8:04am 07/09/2016 9:03am Chloride Level 96 mEq/L L 98-116 07/09/2016 8:04am 07/09/2016 9:03am Carbon Dioxide Level 32 mEq/L 22-34 07/09/2016 8:0407/09/2016 9: 03am Anion Gap 13.3 H 6-13 07/09/2016 8:04am 07/09/2016 9:03am Calcium Level 9.1 mg/dL 8.2-10.6 07/09/2016 8:0407/09/2016 9:03am Magnesium Level 2.0 mg/dL 1.3-2.5 07/09/2016 8:35am 07/09/2016 11:12am Total Protein 7.9 gm/dL 6.0-8.4 07/09/2016 8:04am 07/09/2016 9:03am Albumin 4.1 gm/dL 3.2-5.0 07/09/2016 8:0407/09/2016 9:03am Globulin 3.8 gm/dL H 2.0-3.0 07/09/2016 8:0407/09/2016 9:03am Albumin/Globulin Ratio 1.1 L 1.4-2.4 07/09/2016 8:0407/09/2016 9: 03am Total Bilirubin 0.6 mg/dL 0.1-1.3 07/09/2016 8:04am 07/09/2016 9:03am Alkaline Phosphatase 117 U/L 35-125 07/09/2016 8:0407/09/2016 9: 03am Aspartate Amino Transf (AST/SGOT) 32 U/L 5-40 07/09/2016 8:04am 2016 9:03am Alanine Aminotransferase (ALT/SGPT) 25 U/L 5-40 07/09/2016 8:0407/09 9:03am Troponin I 0.00 ng/mL 0.0-0.02 07/09/2016 8:0407/09/2016 9:27am Lactic Acid Level 2.5 mmol/L *H 0.5-1.9 07/09/2016 8:0407/09/2016 9: 04am CRITICAL RESULT VERIFIED AND CALLED TO ON 07/09/16 AT 0904 BY [id number]. B-Type Natriuretic Peptide 378 pg/mL H 15-100 07/09/2016 8:042016 9:27am Arterial Blood pH 7.19 *L 7.35-7.45 07/09/2016 8:07/09/2016 8: 31am Done on ventilator with Vt of 500, f-12, 100%, 5 PEEP A/C. Blood Gas PCO2 75 mmHg H 35-45 07/09/2016 8:07/09/2016 8:31am Blood Gas PO2 78 mmHg L 89-100 07/09/2016 8:07/09/2016 8:31am Blood Gas Base Excess -1.3 mEq/L 07/09/2016 8:07/09/2016 8:31am Arterial Blood Total CO2 30.9 mM/L H 2107/09/2016 8:07/09/2016 8:31am Arterial Blood HCO3 28.6 mEq/L H 07/09/2016 8:07/09/2016 8: 31am Neutrophils 46.0 % 42.0-75.0 02/14/2014 6:05am 02/14/2014 [...] 9:55pm CRITICAL RESULT VERIFIED AND CALLED TO [facility]OUTMAN ON 3MS AT 2154 BY NRD. 10-15 [...] 8:13am Final Blood Culture Blood No growth. 07/09/2016 8:40am 07/09/2016 9:16pm Final Procedures Procedure Status Date Provider(s) THER/PROPH/DIAG [...] M.D. THER/PROPH/DIAG IV INF ADDON Completed 03/16/15 KENN,TATIANA Hidalgo THER/PROPH/DIAG IV INF ADDON Completed 03/16/15 TATIANA HAWK M.D. THER/PROPH/DIAG IV INF ADDON Completed 03/16/15 KENN,TATIANA Hidalgo THER/PROPH/DIAG IV INF INIT Completed 05/23/15 JOBY OLEARY M.D. THER/PROPH/DIAG IV INF ADDON Completed 05/23/15 ALEXUS,SANIA Morris MD THER/PROPH/DIAG IV INF ADDON Completed 05/23/15 ALEXUS,SANIA Morris MD THER/PROPH/DIAG IV INF ADDON Completed 05/23/15 ALEXUS,SANIA Morris MD THER/PROPH/DIAG IV INF INIT Completed 06/16/15 NICHOLAS LOZOYA M.D. THER/PROPH/DIAG IV INF ADDON Completed 06/16/15 DARELL,NICHOLAS Loeps M.D. THER/PROPH/DIAG IV INF ADDON Completed 06/16/15 [...] D.O. THER/PROPH/DIAG IV INF INIT Completed 07/09/16 MARJ SHELDONOJermain HYDRATE IV INFUSION ADD-ON Completed 07/09/16 MARJ SHELDONO. HYDRATE IV INFUSION ADD-ON Completed 07/09/16 MARJ SHELDONO. HYDRATE IV INFUSION ADD-ON Completed 07/09/16 MARJ SHELDON D.O. THER/PROPH/DIAG IV INF INIT Completed 03/06/14 AMANDA FIELDS M.D. THER/PROPH/DIAG IV INF ADDON Completed 03/06/14 TATIANA HAWK M.D. Encounters Encounter Location Arrival/Admit Date Discharge/Depart Date Attending Provider Departed Emergency Room [facility] 07/09/16 7:45am 11:00am MARJ SHELDON D.O. Discharged Inpatient [facility] 06/28/16 3:52pm 06/29/16 10:55am SANIA VAUGHAN MD Departed Emergency Room [facility] 06/26/16 6:03am 8:10am JOBY OLEARY M.D. Departed Emergency Room [facility] 06/19/16 4:26pm 5:18pm RAISA SNYDER M.D. Office Visit [facility] 06/13/16 11:15am APARNA AGUILAR MD Registered Practice [facility] 06/13/16 11:15am APARNA AGUILAR MD Registered [facility] 05/21/16 10:53am APARNA AGUILAR MD Office Visit [facility] 05/21/16 10:30am APARNA AGUILAR MD Departed Emergency Room [facility] 05/16/16 2:39pm 6:05pm JOBY OLEARY M.D. Office Visit [facility] 04/30/16 3:30pm APARNA AGUILAR MD Departed Emergency Room [facility] 04/29/16 10:47am 11:20am AMANDA FIELDS M.D. Registered Clinic [facility] 04/17/16 1:18pm APARNA AGUILAR MD Office Visit [facility] 04/17/16 11:15am APARNA AGUILAR MD Office Visit [facility] 03/20/16 11:30am APARNA AGUILAR MD Office Visit [facility] 03/06/16 11:30am APARNA AGUILAR MD Registered Clinic Aida [facility] 02/20/16 11:41am APARNA AGUILAR MD Office Visit [facility] 02/20/16 11:15am APARNA AGUILAR MD Office Visit [facility] 02/09/16 10:30am HARPAL ESPOSITO PA-C Registered Practice [facility] 02/09/16 10:30am HARPAL ESPOSITO PA-C Registered Clinic Aida Benson [facility] 02/09/16 10:30am HARPAL ESPOSITO PA-C Registered Referred Aida Benson [facility] 02/03/16 12:04pm THI CHUNG M.D. Office Visit [facility] 02/03/16 11:00am THI CHUNG M.D. Registered Clinic Aida Benson [facility] 02/03/16 11:00am THI CHUNG M.D. Office Visit [facility] 01/31/16 9:45am APARNA AGUILAR MD Office Visit [facility] 01/13/16 11:15am APARNA AGUILAR MD Registered Referred Aida Benson [facility] 01/13/16 9:30am OTHER, DOCTOR Office Visit [facility] 12/21/15 11:15am APARNA AGUILAR MD Office Visit [facility] 12/15/15 10:15am APARNA AGUILAR MD Registered Clinic Aida Benson [facility] 12/15/15 10:02am APARNA AGUILAR MD Discharged Inpatient Aida Benson [facility] 12/09/15 10:28am 12/10/15 1:30pm STU TERRELL M.D. Office Visit [facility] 12/01/15 10:30am APARNA AGUILAR MD Registered Referred Aida Benson [facility] 11/17/15 10:41am APARNA AGUILAR MD Office Visit [facility] 11/17/15 9:30am APARNA AGUILAR MD Registered Clinic [facility] 11/14/15 11:45am APARNA AGUILAR MD Office Visit [facility] 11/14/15 11:00am APARNA AGUILAR MD Registered Referred Aida Benson [facility] 11/09/15 11:08am APARNA AGUILAR MD Office Visit [facility] 11/09/15 11:00am APARNA AGUILAR MD Departed Emergency Room [facility] 11/03/15 2:52pm 4:00pm AMANDA FIELDS M.D. Office Visit [facility] 10/28/15 11:30am APARNA AGUILAR MD Office Visit [facility] 10/13/15 11:15am APARNA AGUILAR MD Departed Emergency Room [facility] 09/30/15 4:24pm 6:42pm SANIA PACKER DO Office Visit [facility] 09/08/15 11:00am APARNA AGUILAR MD Registered Referred [facility] 09/08/15 11:00am APARNA AGUILAR MD [facility] 08/16/[facility] 12:00pm OTHER, DOCTOR Office Visit [facility] 08/16/15 11:15am APARNA AGUILAR MD Office Visit [facility] 07/25/15 2:00pm APARNA AGUILAR MD Registered Clinic [facility] 07/06/15 1:46pm APARNA AGUILAR MD Office Visit [facility] 07/06/15 1:45pm APARNA AGUILAR MD Discharged [facility]obs[facility] 06/16/15 1:19pm 4:13pm SANIA VAUGHAN MD Office Visit [facility] 06/15/15 11:30am APARNA AGUILAR MD Office Visit [facility] 05/31/15 9:45am APARNA AGUILAR MD Discharged Inpatient (obs) [facility] 05/23/15 8:13am 07/08 12:14pm SANIA VAUGHAN MD Registered Referred Aida Benson [facility] 05/10/15 11:13am APARNA AGUILAR MD Office Visit [facility] 05/10/15 10:45am APARNA AGUILAR MD Office Visit [facility] 04/26/15 10:15am JEFFAPARNA SHARPE MD Office Visit [facility] 04/20/15 1:15pm APARNA AGUILAR MD Office Visit [facility] 04/06/15 10:45am JEFFAPARNA SHARPE MD Office Visit [facility] 03/24/15 10:30am APARNA AGUILAR MD Discharged Inpatient (obs) [facility] 03/16/15 3:50pm 5:40pm TATIANA HAWK M.D. Office Visit [facility] 03/15/15 10:45am APARNA AGUILAR MD Registered Referred Aida Benson [facility] 02/23/15 12:47pm APARNA AGUILAR MD Departed Clinic A[facility] 02/22/15 11:13am 02/22/15 12: 02pm GIOVANI MONTANEZ MD Registered Referred A[facility] 02/22/15 10:57am APARNA AGUILAR MD Office Visit [facility] 02/22/15 10:45am APARNA AGUILAR MD Office Visit [facility] 02/09/15 10:15am APARNA AGUILAR MD Departed Clinic [facility] 01/18/15 11:27am 01/18/15 2: 10pm TATIANA HAWK M.D. Office Visit [facility] 01/18/15 11:00am APARNA AGUILAR MD Discharged Inpatient (obs) [facility] 01/09/15 11:45am 5:55pm TATIANA HAWK M.D. Departed Emergency Room [facility] 12/30/14 11:10am 1:40pm CLARISA ALVES M.D. Office Visit [facility] 12/27/14 11:15am APARNA AGUILAR MD Office Visit [facility] 12/20/14 1:15pm APARNA AGUILAR MD Registered Referred [facility] 12/16/14 10:00am APARNA AGUILAR MD Office Visit [facility] 12/16/14 9:45am APARNA AGUILAR MD Office Visit [facility] 12/09/14 10:45am APARNA AGUILAR MD Departed Emergency Room [facility] 11/30/14 9:15am 11:05am JAMES WHITE M.D. Office Visit [facility] 11/22/14 9:45am APARNA AGUILAR MD Office Visit [facility] 11/05/14 11:30am APARNA AGUILAR MD Departed Emergency Room [facility] 11/03/14 11:29am 2:37pm NICHOLAS LOZOYA M.D. Departed Clinic [facility] 10/26/14 10:38am 10/26/14 11: 49am GIOVANI MONTANEZ MD Office Visit [facility] 10/26/14 10:00am APARNA AGUILAR MD Departed Emergency Room [facility] 10/21/14 10:14am 11:43am SANIA PACKER DO Office Visit [facility] 10/13/14 1:00pm APARNA AGUILAR MD Departed Clinic [facility] 10/12/14 10:45am 10/12/14 11: 11am GIOVANI MONTANEZ MD Departed Clinic [facility] 09/28/14 10:32am 09/28/14 12: 19pm GIOVANI MONTANEZ MD Office Visit [facility] 09/28/14 10:15am APARNA AGUILAR MD Office Visit [facility] 09/15/14 11:15am APARNA AGUILAR MD Office Visit [facility] 09/01/14 10:45am APARNA AGUILAR MD Departed Clinic [facility] 08/31/14 10:54am 08/31/14 11: 20am GIOVANI MONTANEZ MD Office Visit [facility] 08/18/14 10:45am APARNA AGUILAR MD Office Visit [facility] 08/10/14 10:30am APARNA AGUILAR MD Discharged Inpatient [facility] 08/04/14 4:51pm 08/07/14 5 :05pm TATIANA HAWK M.D. Registered Referred [facility]ida Benson [facility] 08/03/14 12:03pm APARNA AGUILAR MD Office Visit [facility] 08/03/14 11:15am APARNA AGUILAR MD Departed Clinic [facility] 08/03/14 10:26am 08/03/14 11: 34am GIOVANI MONTANEZ MD Office Visit [facility] 07/22/14 10:45am APARNA AGUILAR MD Discharged Inpatient [facility] 07/09/14 11:21am 07/12/14 2:45pm TATIANA HAWK M.D. Registered Referred [facility] 07/08/14 10:00am APARNA AGUILAR MD Office Visit [facility] 07/08/14 9:00am APARNA AGUILAR MD Departed Clinic [facility] 07/06/14 10:21am 07/06/14 11: 19am GIOVANI MONTANEZ MD Office Visit [facility] 07/02/14 10:30am APARNA AGUILAR MD Discharged Inpatient [facility] 06/15/14 1:11am 06/16/14 11:50am TATIANA HAWK M.D. Departed Clinic [facility] 06/14/14 11:24am 06/14/14 1: 09pm APARNA AGUILAR MD Office Visit [facility] 06/14/14 11:00am APARNA AGUILAR MD Office Visit [facility] 06/02/14 11:15am APARNA AGUILAR MD Discharged Inpatient [facility] 05/21/14 10:17pm 05/24/14 11:40am TATIANA HAWK M.D. Office Visit [facility] 04/26/14 8:45am APARNA AGUILAR MD Registered Referred [facility] 04/20/14 2:16pm APARNA AGUILAR MD Office Visit [facility] 04/20/14 1:30pm APARNA AGUILAR MD Departed Clinic [facility] 04/20/14 11:00am 04/20/14 11: 57am GIOVANI MONTANEZ MD Office Visit [facility] 04/14/14 11:15am APARNA AGUILAR MD Office Visit [facility] 04/01/14 10:30am APARNA AGUILAR MD Departed Clinic [facility] 03/23/14 10:53am 03/23/14 12: 39pm GIOVANI MONTANEZ MD Office Visit [facility] 03/18/14 10:15am APARNA AGUILAR MD Office Visit [facility] 03/11/14 11:15am APARNA AGUILAR MD Departed Clinic [facility] 03/09/14 11:00am 03/09/14 11: 22am GIOVANI MONTANEZ MD Discharged Inpatient (obs) [facility] 03/06/14 8:25pm 2:40pm TATIANA HAWK M.D. Office Visit [facility] 03/05/14 11:15am APARNA AGUILAR MD Office Visit [facility] 03/01/14 9:15am APARNA AGUILAR MD Registered Referred [facility] 02/26/14 10:23am APARNA AGUILAR MD Office Visit [facility] 02/26/14 10:00am APARNA AGUILAR MD Departed Clinic [facility] 02/23/14 11:35am 02/23/14 12: 01pm GIOVANI MONTANEZ MD Discharged Inpatient Aida[facility]i [facility] 02/16/14 8:34pm 02/19/14 4 :30pm TATIANA HAWK M.D. Discharged Inpatient [facility] 02/12/14 2:30am 02/15/14 11:00am APARNA AGUILAR MD Departed Emergency Room [facility] 02/08/14 10:15am 1:28pm CAROLINA DUMONT M.D. Office Visit [facility] 02/02/14 2:15pm APARNA AGUILAR MD Departed Clinic [facility] 02/02/14 1:31pm 02/02/14 2: 25pm GIOVANI MONTANEZ MD Office Visit [facility] 01/21/14 10:00am APARNA AGUILAR MD [facility] 01/12/14 11:43am 01/12/14 12: 38pm GIOVANI MONTANEZ MD Office Visit [facility] 01/07/14 10:00am APARNA AGUILAR MD Departed Clinic [facility]ida[facility] 12/22/13 12:49pm 12/22/13 1: 23pm GIOVANI MONTANEZ MD Office Visit [facility] 12/22/13 11:30am APARNA AGUILAR MD Office Visit [facility] 12/10/13 11:00am APARNA AGUILAR MD [facility] 12/01/13 3:00pm 08/26/16 11:59pm APARNA AGUILAR MD Recent Diagnosis
--- OUTSIDE RECORDS SUMMARY | 2016-11-10 06:37 | XMS REPORT | Continuity of Care Document ---
Author Author [facility] Organization [facility] Address Unknown Phone Unavailable Care Team Providers Care Seat Joiner Name Role Phone APARNA AGUILAR MD Unavailable [phone] Insurance Providers Payer Name Policy Number Subscriber Name Relationship Wps Medicare [id number] Amee Guillen Self / Same As Patient For Life [id number] Amee Guillen Self / Same As Patient [...] Active Congestive heart failure (CHF) Unknown Active Medications Medication Dose Route Sig [...] 05/27/13 08/25/13 Discontinued Fluticasone Propionate (Nasal) 2 [place] NA DAILY 1 Qty 05/27/13 Discontinued Levofloxacin 500 Mg PO DAILY 10 Qty 05/29/13 07/31/13 Discontinued Magnesium Oxide 400 Mg PO TWICE A DAY 180 Qty 06/30/13 Active Fluconazole 100 Mg PO WEEKLY 12 Qty 06/30/13 Active Tamsulosin Hcl 0.4 Mg PO DAILY 90 Qty 06/30/13 Active Fluticasone Propionate (Nasal) 2 [place] NA DAILY 3 Qty 3 month supply [...] Every 4 hours as needed 30 Qty 08/25/10/06/13 Discontinued Colchicine 0.6 Mg PO DAILY 90 [...] Un EX DAILY 1 Qty 12/22/13 Active Social History Social History Problem Response [...] Vital Signs Vital Response Date/Time Blood Pressure 112/62 mm Hg 12/22/2013 1:00pm Temperature (Fahrenheit) 96.2 degrees F (96.0 - 99.9) 12/22/2013 1:00pm Temperature Source Oral 12/22/2013 1:00pm Pulse 12/22/2013 1:00pm Pulse Rate (adult) 91 bpm (60 - 100) 12/22/2013 1:00pm Ambulatory Vital Signs Vital Response Date/Time Height 5 ft 5 in 12/22/2013 11:22am Weight 276 lbs 12/22/2013 11:22am Blood Pressure 98/62 mm Hg 12/22/2013 11:22am Body Surface Area 2.47 m2 12/22/2013 11:22am Body Mass Index 45.9 kg/m2 12/22/2013 11:22am Results Test Source Date Result Interp. Ref. [...] 2009 8:27am 103 mEq/L N 98-116 Bedside Glucose November 28, 2013 5:43am 279 mg/dL H 70-120 Bedside Hematocrit June 06, 2009 8:27am 49.0 % N 40.0-54.0 Bedside Hemoglobin June 06, 2009 8:27am 17.0 g/dL N 14.0-18.0 Bedside Potassium June 06, 2009 8:27am 3.8 mEq/L N 3.5-5.1 Bedside Sodium June 06, 2009 8:27am 138 mEq/L N 133-145 Blood Gas Base Excess October 30, 2013 [...] Positive ug/mL <0.20 COMMENTS? ROOM 3 D-Dimer Titer January 26, 2004 7:15am 0.20-0.40 [...] 27, 2013 12:40am 3.3 gm/dL H 2.0-3.0 Glucose Level July 05, 1999 4:30pm 163 [...] 6:05am 0.2 K/uL N 0-0.4 COMMENT: 04 LDL Cholesterol February 20, 2002 8:12am 59 mg/dL N 25-160 Lactate Dehydrogenase September 28, 1998 4:10pm 152 [...] 27, 2013 12:40am 126 mg/dL H 65-115 Red Blood Cell Morphology August 27, 2002 [...] Synovial Fluid WBC September 27, 1998 12:00am 67406.0 /uL PH Target Cells August 05, 2001 [...] 05SOURCE : URINE, CLEAN CATCH Urine Specific [place] October 30, 2013 4:48pm 1.015 1.005-1.030 HAS [...] June 06, 2009 8:27am 11 N 10-20 D-Dimer Quantitative (PE/DVT) October 30, 2013 12:50am 775 ng/mL <230 Results <230 ng/mL yeild a negativepredictability for DVT or PE Lab Scanned Report August 25, 2013 10:32am Lab Scanned Report [id number] Bedside Troponin I November 27, 2013 1:15am < 0.05 ng/mL 0.00-0.05 <0.05 ng/mL=NORMAL0.05 - 0.40 ng/mL=CARDIAC CONDITION >0.40 ng/mL=SUGGESTS AMI Rapid Troponin I August 28, 2010 3:40pm 0.00 ng/mL N 0.00-0.03 < 0.03 ng/mL=NORMAL0.04 - 0.50 ng/mL=CARDIAC CONDITION >0.50 ng/mL=SUGGESTS AMI Bedside Creatinine June 06, 2009 8:27am 1.6 mg/dL N 0.9-1.6 Glomerular Filtration Rate Calc November 27, 2013 12:40am > 60.00 mL/min MULTIPLY RESULT BY 1.210 IF THE PATIENT IS -AMERICANUnits are mL/min/ 1.73 m2 > 60 Normal kidney function 30-59 Moderately decreased kidney function 15-29 Severely decreased kidney function <15 End-stage kidney failure Immature Granulocyte # (Auto) November 27, 2013 12:40am 0.03 K/uL N 0-0.40 Immature Granulocyte % (Auto) November 27, 2013 12:40am 0.4 % N 0-0.5 Blood Culture Blood May 28, 2013 1:42am [...] procedures. Encounters Encounter Location Date/Time Registered Clinic [facility] 12/22/13 12:49pm Office Visit APARNA TURCIOSS 12/22/13 11:30am Office Visit APARNA TURCIOSS 12/10/13 11:00am Registered [facility] 12/01/13 3:00pm Registered Clinic [facility] 12/01/13 2:25pm Discharged Inpatient [facility] 11/27/13 2:30am Office Visit APARNA DELUCAHNS 11/26/13 10:45am Office Visit APARNA Burks JEFF 11/12/13 11:30am Office Visit APARNA R JEFF 11/05/13 9:15am Discharged Inpatient [facility] 10/30/13 12:37pm Office Visit APARAN Burks JEFF 10/27/13 10:45am Office Visit APARNA R JEFF 10/06/13 11:15am Office Visit APARNA R JEFF 09/24/13 10:00am Office Visit APARNA R JEFF 09/08/13 10:30am Office Visit APARNA R JEFF 08/25/13 10:00am Office Visit APARNA R JEFF 08/18/13 11:00am Registered Clinic [facility] 08/11/13 2:45pm Office Visit APARNA R JEFF 08/11/13 2:15pm Office Visit APARNA R JEFF 08/05/13 10:45am Office Visit APARNA R JEFF 07/31/13 1:00pm Office Visit APARNA R JEFF 07/30/13 10:05am Office Visit APARNA R JEFF 07/24/13 11:30am Office Visit APARNA R JEFF 07/14/13 10:30am Office Visit APARNA R JEFF 06/30/13 10:30am Registered Clinic Aida [facility] 06/09/13 11:37am Office Visit APARNA R JEFF 06/09/13 11:30am Registered Clinic Aida [facility] 06/02/13 11:35am Office Visit APARNA R JEFF 06/02/13 11:15am Discharged Inpatient Aida Benson [facility] 05/28/13 7:10am Office Visit APARNA R JEFF 05/27/13 1:00pm Discharged Inpatient Aida Benson [facility] 05/25/13 9:20am Office Visit APARNA R JEFF 05/19/13 11:15am Registered Clinic Aida Benson [facility] 05/12/13 1:36pm Office Visit APARNA R JEFF [...] Office Visit APARNA R JEFF 02/03/13 10:30am Office Visit APARNA R JEFF 01/27/13 10:15am Office Visit APARNA R JEFF 01/13/13 9:45am Office Visit APARNA R JEFF 01/02/13 11:15am Office Visit APARNA R JEFF 12/29/12 2:15pm Office Visit APARNA R JEFF 12/23/12 10:45am
--- OUTSIDE RECORDS SUMMARY | 2016-11-10 06:37 | XMS REPORT | Referral Summary ---
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 Discharge Diagnosis: Complex sleep apnea syndrome Discharge Disposition: 01-Home or Self Care Attending Physician: Acosta Garcia MD Admitting Physician: Acosta Garcia MD Vital Signs Most recent to 1 oldest [Reference Range]: Peripheral Pulse 88 bpm Rate [60-100 bpm] (02/07/16 2:11 PM) Blood Pressure 120/80 mmHg [90-140/60-90 mmHg] (02/07/16 2:11 PM) SpO2 94 % (02/07/16 2:11 PM) Problem List Condition Effective Dates Status [...]
--- OUTSIDE RECORDS SUMMARY | 2016-11-10 06:38 | XMS REPORT | Continuity of Care Document ---
Author Author [facility] Organization [facility] Address Unknown Phone Unavailable Care Team Providers Care Treasury Assistant Name Role Phone APARNA AGUILAR MD Unavailable [phone] Insurance Providers Payer Name Policy Number Subscriber Name Relationship Wps Medicare [id number] Amee Guillen Self / Same As Patient For Life [id number] Amee Guillen Self / Same As Patient Chief Complaint and Reason for Visit Chief Complaint Respiratory Problem Reason for Visit Respiratory acidosis Hypoxemia [id number] Problems Medical Problems Problem Onset Date Status [...] 05/27/13 08/25/13 Discontinued Fluticasone Propionate (Nasal) 2 [place] NA DAILY 1 Qty 05/27/13 Discontinued Levofloxacin [...] Qty 02/08/14 Active Fluticasone Propionate (Nasal) 1-2 [place] NA DAILY For STUFFY NOSE 1 Qty [...] daily For Dyspnea 5 Days 10/21/14 Active Social History Social History Problem Response Recorded Date/Time Smoking Status Former smoker 10/21/2014 10:15am Query Response Start Date Stop Date Smoking Status Former smoker Hospital Discharge Instructions No hospital discharge instructions. Plan of Care Discharge Date 10/21/14 11:43am Disposition 01 HOME, SELF-CARE Condition at Discharge Improved Prescriptions See Medications Section Referrals APARNA AGUILAR MD Additional Instructions/Education Use Combivent as instructed and scheduled. Use albuterol treatments in between times as needed for difficulty breathing, coughing, or wheezing. Use prednisone as instructed. Limit activity. Return to the emergency department if worsening. Functional Status No functional status results. Allergies, [...] Vital Signs Vital Response Date/Time Blood Pressure 104/68 mm Hg Blood Pressure Mean 74 mm Hg Blood Pressure Mean 80 mm Hg Temperature (Fahrenheit) 97.9 degrees F (96.0 - 99.9) Temperature (Calculated Celsius) 36.80763 degrees C Temperature (Calculated Celsius) 36.89058 degrees C (36.4 - 37.5) Temperature (Fahrenheit) 98.4 degrees F (96.0 - 99.9) Temperature Source Oral Temperature Source Oral Temp 98.4 degrees F (96.0 - 99.9) Temperature (Calculated Celsius) 36.43129 degrees C Pulse Pulse Rate (adult) 87 bpm (60 - 100) Pulse Rate (adult) 115 bpm (60 - 100) Pulse Rate: ED 86 bpm Respiratory Rate 18 breaths per minute (10 - 20) Respiratory Rate 14 bpm (10 - 20) Height (Feet) 5 ft Height (Inches) 6 in. Weight (Pounds) 265 lbs Ambulatory Vital Signs Vital Response Date/Time Height 5 ft 5 in 10/13/2014 1:05pm Weight 277 lbs 10/13/2014 1:05pm Blood Pressure 100/64 mm Hg 10/13/2014 1:05pm Body Surface Area 2.47 m2 10/13/2014 1:05pm Body Mass Index 46.1 kg/m2 10/13/2014 1:05pm Results Test Source Date Result Interp. Ref. Range Comments Activated Partial Thromboplast Time September 23, 2011 6:25am 26.6 SECONDS N 23.0-32.0 COMMENT: 06 Alanine Aminotransferase (ALT/SGPT) October 21, 2014 10:20am 25 U/L N 5- 40 Albumin October 21, 2014 10:20am 3.6 gm/dL N 3.2-5.0 Albumin/Globulin Ratio October 21, 2014 10:20am 1.0 L 1.4-2.4 Alkaline Phosphatase October 21, 2014 10:20am 86 U/L N 35-125 Ammonia August 28, 2010 8:20pm 28 mcg/dL N 19-60 COMMENTS?NEW ADMIT SERUM AMMONIA,SERUM MAG Anion Gap October 21, 2014 10:20am 8.2 N 6-13 Anisocytosis December 08, 2012 8:20am 2+ COMMENT: 04 Arterial Blood HCO3 July 09, 2014 5:58am 33.7 mEq/L H 21-27 PT. ON 6LNC Arterial Blood Total CO2 July 09, 2014 5:58am 35.3 mM/L H 21-27 Arterial Blood pH July 09, 2014 5:58am 7.42 N 7.35-7.45 Aspartate Amino Transf (AST/SGOT) October 21, 2014 10:20am 27 U/L N 5-40 Atypical Lymphocytes June 25, 2012 10:20pm 1.0 % N 0-2 COMMENT: 05 B-Type Natriuretic Peptide August 03, 2014 12:08pm 204 pg/mL H 15-100 BUN/Creatinine Ratio October 21, 2014 10:20am 23.1 Band Neutrophils December 08, 2012 8:20am 2.0 % N 0-7 COMMENT: 04 Basophils # (Auto) October 21, 2014 10:20am 0.0 K/uL N 0-0.2 Basophils (%) (Auto) October 21, 2014 10:20am 0.6 % N 0-1 Basophils (Manual) February 14, [...] 83 mmHg L 89-100 Blood Urea Nitrogen October 21, 2014 10:20am 33 mg/dL H 8-25 C-Reactive Protein June 25, 2012 10:20pm 8.0 mg/L <6.0 COMMENT: 05 Calcium Level October 21, 2014 10:20am 8.9 mg/dL N 8.2-10.6 Carbon Dioxide Level October 21, 2014 10:20am 33 mEq/L N 22-34 Chloride Level October 21, 2014 10:20am 97 mEq/L L 98-116 Cholesterol Level February 20, 2002 8:12am 130 mg/dL N 120-200 Creatine Kinase MB May 21, 2014 7:40pm 4.7 ng/mL N 0.0-6.0 Creatinine October 21, 2014 10:20am 1.43 mg/dL N 0.9-1.6 Creatinine Clearance December 21, [...] 9:42am 2.3 ng/ml PH Eosinophils # (Auto) October 21, 2014 10:20am 0.4 K/uL N 0-0.8 Eosinophils (%) (Auto) October 21, 2014 10:20am 7.5 % H 0-7.0 Eosinophils (Manual) February 14, 2014 6:05am 12.0 % H 0-7.0 Erythrocyte Sedimentation Rate May 29, 2010 1:10pm 7 mm/hr N 0-20 Folate August 06, 2000 6:50am See separate report ng/ml Free Thyroxine Index August 06, 2000 6:50am 5.10 N 3.6-14.0 Globulin October 21, 2014 10:20am 3.7 gm/dL H 2.0-3.0 Glomerular Filtration Rate Calc October 21, 2014 10:20am 48.34 mL/min MULTIPLY RESULT BY 1.210 IF THE [...] PROCEDURE - PT IN RR NOW Hematocrit October 21, 2014 10:20am 42.1 % N 40.0-54.0 Hemoglobin October 21, 2014 10:20am 13.1 g/dL L 14.0-18.0 Hepatitis B Surface Antibody [...] 0-0.4 COMMENT: 04 Immature Granulocyte # (Auto) October 21, 2014 10:20am 0.01 K/uL N 0-0.40 Immature Granulocyte % (Auto) October 21, 2014 10:20am 0.2 % N 0-0.5 InFluenza Virus Type A (H1N1) (PCR) July 09, 2014 6:15am Not detected NEGATIVE Influenza Virus Type A (PCR) July 09, 2014 6:15am Negative NEGATIVE Influenza Virus Type B (PCR) July 09, 2014 6:15am Negative NEGATIVE LDL Cholesterol February 20, 2002 8:12am 59 mg/dL N 25-160 Lab Scanned Report April 29, 2014 8:54am Lab Scanned Report [id number] Lactate Dehydrogenase September 28, 1998 4:10pm 152 U/L N COMMENTS? CARDIAC ENZYMES NOW Lactic Acid Level May 21, 2014 7:40pm 1.2 mmol/L N 0.5-2.2 Lipase May 21, 2014 7:40pm 17 U/L N 8-57 Lymphocytes # (Auto) October 21, 2014 10:20am 0.8 K/uL L 0.9-5.2 Lymphocytes (%) (Auto) October 21, 2014 10:20am 15.3 % L 16.0-44.0 Lymphocytes (Manual) February 14, 2014 6:05am 26.0 % N 21.0-51.0 Macrocytosis December 08, 2012 8:20am 2+ COMMENT: 04 Magnesium Level August 27, 2011 10:20am 1.7 mg/dL N 1.3-2.5 Mean Corpuscular Hemoglobin October 21, 2014 10:20am 29.9 pg N 26.0-33.0 Mean Corpuscular Hemoglobin Concent October 21, 2014 10:20am 31.1 g/dL N 31.0-36.0 Mean Corpuscular Volume October 21, 2014 10:20am 96.1 fL H 80.0-94.0 Mean Platelet Volume October 21, 2014 10:20am 9.8 fL N 7.0-11.0 Metamyelocytes January 22, 2008 7:03pm 2.0 % Microcytosis November 03, 2006 8:55am 1+ COMMENTS?ROOM 2 Monocytes # (Auto) October 21, 2014 10:20am 0.9 K/uL N 0.16-1.0 Monocytes (%) (Auto) October 21, 2014 10:20am 16.6 % H 2.0-9.0 Monocytes (Manual) February 14, 2014 6:05am 16.0 % H 2.0-9.0 Myelocytes January 22, 2008 7:03pm 1.0 % Neutrophils February 14, 2014 6:05am 46.0 % N 42.0-75.0 Neutrophils # (Auto) October 21, 2014 10:20am 3.1 K/uL N 1.9-8.0 Neutrophils (%) (Auto) October 21, 2014 10:20am 59.8 % N 42.0-75.0 Nucleated Red Blood Cells # October 21, 2014 10:20am 0.00 K/uL N 0.0- 0.012 Nucleated Red Blood Cells % October 21, 2014 10:20am 0.0 /100WBC N 0-0 Ovalocytes January 22, 2006 9:55pm 1+ COMMENTS?ROOM 5 Platelet Count October 21, 2014 10:20am 113 K/uL L 130-400 Platelet Estimate August 06, 2014 5:58am Decreased NORMAL NO EVIDENCE OF PLATELET CLUMPING ON SLIDE REVIEW Poikilocytosis January 22, 2006 9:55pm 1+ COMMENTS?ROOM 5 Polychromasia August 10, 2006 10:30pm 1+ COMMENTS?ROOM 2 Potassium Level October 21, 2014 10:20am 4.2 mEq/L N 3.5-5.1 Prealbumin May 30, [...] 11.5 SECONDS N 9.0-12.0 RDW Standard Deviation October 21, 2014 10:20am 50.6 fL H 35.1-43.9 Random Glucose October 21, 2014 10:20am 196 mg/dL H 65-115 Rapid Troponin I August 28, 2010 3:40pm 0.00 ng/mL N 0.00-0.03 < 0.03 ng/mL=NORMAL0.04 - 0.50 ng/mL=CARDIAC CONDITION >0.50 ng/mL=SUGGESTS AMI Red Blood Cell Morphology August 27, 2002 7:35pm Normal Red Blood Count October 21, 2014 10:20am 4.38 M/uL L 4.60-5.40 Red Cell Distribution Width October 21, 2014 10:20am 14.6 % H 11.5-14.5 Sodium Level October 21, 2014 10:20am 134 mEq/L N 133-145 Stomatocytes December 08, [...] Synovial Fluid WBC September 27, 1998 12:00am 66189.0 /uL PH Target Cells August 05, 2001 7:20am 2+ COMMENTS? SEND TO ASU ON ARRIVAL Thyroid Stimulating Hormone (TSH) May 29, 2010 1:10pm 10.62 uIU/ml H 0.34-5.60 Thyroxine (T4) August 06, 2000 6:50am 5.8 ug/dl N 4.7-11.5 Total Bilirubin October 21, 2014 10:20am 0.7 mg/dL N 0.1-1.3 Total Creatine Kinase May 21, 2014 7:40pm 52 U/L N 10-180 Total Protein October 21, 2014 10:20am 7.3 gm/dL N 6.0-8.4 Toxic Granulation May 28, 2001 3:18pm 1+ Triglycerides Level February 20, 2002 8:12am 113 mg/dL N 45-150 Triiodothyronine (T3) Uptake August 06, 2000 6:50am 27.8 % N 24.0- 38.9 Troponin I October 21, 2014 10:20am 0.00 ng/mL N 0.0-0.02 Uric Acid August [...] NONE SOURCE: URINE, CLEAN CATCH Urine Specific [place] July 09, 2014 6:35am 1.015 1.005-1.030 SOURCE: [...] See separate report pg/ml White Blood Count October 21, 2014 10:20am 5.2 K/uL N 5.0-10.0 Whole Blood Anion Gap [...] Encounters Encounter Location Date/Time Departed Emergency Room [facility] 10/21/14 10:14am Office Visit APARNA AGUILAR 10/13/14 1:00pm Registered Clinic [facility] 10/12/14 10:45am Registered Clinic Aida Ramon [facility] 09/28/14 10:32am Office Visit APARNA AGUILAR 09/28/14 10:15am Office Visit APARNA AGUILAR 09/15/14 11:15am Office Visit APARNA AGUILAR 09/01/14 10:45am Registered Clinic [facility] B[facility] 08/31/14 10:54am Office Visit APARNA AGUILAR 08/18/14 10:45am Office Visit APARNA AGUILAR 08/10/14 10:30am Discharged Inpatient Delmar Ramon [facility] 08/04/14 4:51pm Office Visit AAPRNA AGUILAR 08/03/14 11:15am Registered Clinic [facility] 08/03/14 10:26am Office Visit APARNA AGUILAR 07/22/14 10:45am Discharged Inpatient Aida[facility]i [facility] 07/09/14 11:21am Office Visit APARNA Vitaliy JEFF 07/08/14 9:00am Registered Clinic [facility] 07/06/14 10:21am Office Visit APARNA R JEFF 07/02/14 10:30am Discharged Inpatient Aida Ramon [facility] 06/15/14 1:11am Registered Clinic Aida [facility] 06/14/14 11:24am Office Visit APARNA R JEFF 06/14/14 11:00am Office Visit APARNA R JEFF 06/02/14 11:15am Discharged Inpatient Aidaeleni [facility] 05/21/14 10:17pm Office Visit APARNA R JEFF 04/26/14 8:45am Office Visit APARNA R JEFF 04/20/14 1:30pm Registered Clinic A[facility] 04/20/14 11:00am Office Visit APARNA Burks JEFF 04/14/14 11:15am Office Visit APARNA DELUCAHNS 04/01/14 10:30am Registered Clinic A[facility] 03/23/14 10:53am Office Visit APARNA R JEFF 03/18/14 10:15am Office Visit APARNA R JEFF 03/11/14 11:15am Registered Clinic A[facility] 03/09/14 11:00am Discharged Inpatient Aida BarrientosJermain [facility] 03/06/14 8:25pm Office Visit APARNA R JEFF 03/05/14 11:15am Office Visit APARNA R JEFF 03/01/14 9:15am Office Visit APARNA R JEFF 02/26/14 10:00am Registered Clinic A[facility] 02/23/14 11:35am Discharged Inpatient Aida [facility] 02/16/14 8:34pm Discharged Inpatient Aida [facility] 02/12/14 2:30am Departed Emergency Room Aidaeleni [facility] 02/08/14 10:15am Office Visit APARNA R JEFF 02/02/14 2:15pm Registered Clinic [facility] 02/02/14 1:31pm Office Visit APARNA AGUILAR 01/21/14 10:00am Registered Clinic A[facility] 01/12/14 11:43am Office Visit APARNA AGUILAR 01/07/14 10:00am Registered Clinic [facility] 12/22/13 12:49pm Office Visit APARNA AGUILAR 12/22/13 11:30am Office Visit APARNA AGUILAR 12/10/13 11:00am Registered Recurring [facility] 12/01/13 3:00pm Registered Clinic A[facility] 12/01/13 2:25pm Discharged Inpatient Aida [facility] 11/27/13 2:30am Office Visit APARNA AGUILAR 11/26/13 10:45am Office Visit APARNA AGUILAR 11/12/13 11:30am Office Visit APARNA AGUILAR 11/05/13 9:15am Discharged Inpatient Aida [facility] 10/30/13 12:37pm Office Visit APARNA AGUILAR 10/27/13 10:45am Recent Diagnosis
--- OUTSIDE RECORDS SUMMARY | 2016-11-10 06:39 | XMS REPORT | Continuity of Care Document ---
Author Author Aida Benson [facility] Aida Benson [facility] Address Unknown Phone Unavailable Care Team Providers Care Target Protection Specialist Name Role Phone APARNA AGUILAR MD Unavailable [phone] Insurance Providers Guarantor Amee Anderson Address [address] [place] [address] Payer [employer] Policy Number [id number] Subscriber's Name Amee Anderson Relationship 01 Self / Same As Patient Group Number [id number] Group Name [employer] Effective Date 13 Payer s Medicare Policy Number [id number] Subscriber's Name Amee Anderson Relationship 01 Self / Same As Patient Effective Date 09 Chief Complaint and Reason for Visit Chief Complaint Foot Pain Reason for Visit [id number] Left foot pain Problems Active Problems Medical Problem Onset Date [...] Tablet 06/29/15 Fluticasone Propionate (Flonase 0.05% Nasal [place]) 16 Gm Inha 1-2 [place] Nasal Daily 1 Btl 05/24/15 Furosemide (Lasix [...] Propionate (Nasal) (Flonase) 0.05 % Spr, 1-2 [place] Nasal Daily for Stuffy Nose 02/12/14 Discontinued Fluticasone Propionate (Nasal) (Flonase) 0.05 % Spr, 2 [place] Nasal Daily 10/04 Discontinued Furosemide (Lasix 80 [...] Hcl 100 Mg Cap, 100 Mg Oral D@ 09/24/12 Discontinued Minocycline Hcl 100 Mg Cap, [...] Applicable Not Applicable Smoking Status Former smoker 04/29/2016 10:54am Not Applicable Not Applicable Query Response Start Date Stop Date Smoking Status Former smoker Hospital Discharge Instructions No hospital discharge instructions. Plan of Care Discharge Date 04/29/16 11:20am Disposition 01 HOME, SELF-CARE Condition at Discharge Stable Prescriptions See Medication Section Referrals APARNA AGUILAR MD Address: [address] [place] [id number] Additional Instructions/Education Keep area clean and dry. Keep appointment with day habilitation specialist tomorrow as scheduled. May take an extra dose of pain medicine should pain be severe. Functional Status No functional status results. Allergies, Adverse Reactions, Alerts Allergen Type Severity Reaction Status Last Updated Allopurinol ([id number]) Allergy Unknown Active 06/16/15 Codeine ([id number]) Adverse Reaction Unknown Active 06/16/15 Metoclopramide ([id number]) Allergy Unknown Active 06/16/15 Venlafaxine ([id number]) Allergy Unknown Active 06/16/15 Celecoxib ([id number]) Adverse Reaction Unknown Active 06/16/15 Cephalosporins ([id number]) Allergy Unknown Active 06/16/15 Immunizations Immunization Event Date Type Not Given Reason Dose Number Lot Number [employer] Influenza Vaccine, Inactivated 03/24/12 Administered 1 [id number] San[employer]i Influenza Vaccine, Inactivated 04/09/13 Administered 2 [id number] SANOFI Pneumococcal Polysaccharide Vaccine 23 07/30/05 Administered 1 Influenza, high dose, seasonal 03/17/15 Historical 1 Query Response on File Recorded Date/Time Hx Hepatitis A Vaccination No 12/08/15 3:18pm Vital Signs Acute Vital Signs Vital Response Date/Time Blood Pressure 111/62 mm Hg 04/29/2016 10:49am Blood Pressure Mean 74 mm Hg 11/27/2013 1:24pm Blood Pressure Mean 78 mm Hg 04/29/2016 10:49am Temperature (Fahrenheit) 97.9 degrees F (96.0 - 99.9) 04/29/2016 10:49am Temperature (Calculated Celsius) 36.18938 degrees C 04/29/2016 10:49am Temperature (Calculated Celsius) 36.69592 degrees C (36.4 - 37.5) 11/27/2013 1:24pm Temperature (Fahrenheit) 98.4 degrees F (96.0 - 99.9) 11/27/2013 1:24pm Temperature Source Oral 12/10/2015 12:12pm Temperature Source Oral 04/29/2016 10:49am Temp 98.4 degrees F (96.0 - 99.9) 11/27/2013 1:22pm Temperature (Calculated Celsius) 36.31110 degrees C 11/27/2013 1:22pm Pulse Pulse Rate (adult) 62 bpm (60 - 100) 12/10/2015 12:12pm Pulse Rate (adult) 115 bpm (60 - 100) 11/27/2013 1:24pm Pulse Rate: ED 87 bpm 04/29/2016 10:49am Respiratory Rate 16 breaths per minute (10 - 20) 04/29/2016 10:49am Respiratory Rate 14 bpm (10 - 20) 11/27/2013 1:24pm Height (Feet) 5 ft 04/29/2016 10:49am Height (Inches) 6.0 in. 04/29/2016 10:49am Weight (Pounds) 263.0 lbs 04/29/2016 10:49am Height 5 ft 6 in 04/29/2016 10:49am Weight 263 lb 04/29/2016 10:49am Body Mass Index 42.4 kg/m^2 04/29/2016 10:49am Ambulatory Vital Signs Vital Response Date/Time Height 5 ft 5 in 04/17/2016 11:16am Weight 274 lbs 04/17/2016 11:16am Blood Pressure 100/62 mm Hg 04/17/2016 11:16am Body Surface Area 2.46 m2 04/17/2016 11:16am Body Mass Index 45.6 kg/m2 04/17/2016 11:16am Pulse Oximetry Pulse Oximetry 04/17/2016 11:16am Results Laboratory Results Test Name Result Units [...] mg/L H <6.0 05/23/2015 5:50am 05/23/2015 6:27am Magnesium Level 2.2 mg/dL 1.3-2.5 09/30/2015 5:23pm 09/30/2015 5:52pm Thyroid Stimulating Hormone (TSH) 11.63 uIU/ml H 0.34-5.60 09/30/2015 5: 23pm 09/30/2015 6:50pm B-Type Natriuretic Peptide 315.2 pg/mL H 0.0-100.0 11/14/2015 11:18am 1:37pm Performed at: DA - [facility] [address] [address], [place], [place] [id number] Clockmaker Apprentice: ROJAS Whitaker MD, Phone: [phone] White Blood Count 5.1 K/uL 5.0-10.0 12/10/2015 [...] NEGATIVE 12/08/2015 2:45pm 12/08/2015 3:01pm Urine Specific [place] 1.020 1.005-1.030 12/08/2015 2:45pm 2015 3:01pm Urine [...] RESULT BY 1.210 IF THE PATIENT IS -ANGOLAN Units are mL/min/1.73 m2 > 60 Normal [...] 4.8-5.6 04/17/2016 11:35am 04/18/2016 10:06am Performed at: [address] [id number] Clockmaker Apprentice: ROJAS Whitaker MD, Phone: [phone] Magnesium Level 2.2 mg/dL 1.6-2.3 04/17/2016 11:35am 04/18/2016 8:01am Performed at: [address] [id number] Clockmaker Apprentice: ROJAS Whitaker MD, Phone: [phone] White Blood Count 4.1 x10E3/uL 3.4-10.8 04/17/2016 [...] 11: 35am 04/18/2016 6:08am Performed at: - [facility] [address] [id number] Clockmaker Apprentice: ROJAS Whitaker MD, Phone: [phone] Glucose Level 90 mg/dL 65-99 04/17/2016 11:35am 04/18/2016 7:18am Blood Urea Nitrogen 19 mg/dL 8-27 04/17/2016 11:35am 04/18/2016 7:18am Creatinine 1.02 mg/dL 0.76-1.27 [...] 11:35am 7:18am Performed at: DA - [facility] [address], [place], [place] [id number] Clockmaker Apprentice: ROJAS Whitaker MD, Phone: [phone] EGFR IF NONAFRICN AM 72 >59 04/17/2016 11:35am 04/18/2016 7:18am Result Units: mL/min/1.73 EGFR IF AFRICN AM 83 >59 04/17/2016 11:35am 04/18/2016 7:18am Result Units: mL/min/1.73 Bedside Troponin I < 0.05 ng/mL 0.00-0.05 [...] Discharge/Depart Date Attending Provider Departed Emergency Room [facility] 04/29/16 10:47am 11:20am AMANDA FIELDS M.D. Registered Clinic [facility] 04/17/16 1:18pm APARNA AGUILAR MD Office Visit APARNA AGUILAR 04/17/16 11:15am APARNA AGUILAR MD Registered Practice [facility] 04/17/16 11:15am APARNA AGUILAR MD Office Visit [facility] AGUILAR 03/20/16 11:30am APARNA AGUILAR MD Office Visit APARNA AGUILAR 03/06/16 11:30am APARNA AGUILAR MD Registered Clinic [facility] 02/20/16 11:41am APARNA AGUILAR MD Office Visit APARNA Burks JEFF 02/20/16 11:15am APARNA AGUILAR MD Office Visit [facility] 02/09/16 10:30am HARPAL ESPOSITO PA-C Registered Practice [facility] 02/09/16 10:30am HARPAL ESPOSITO PA-C Registered Clinic [facility] 02/09/16 10:30am HARPAL ESPOSITO PA-C Registered Referred [facility] 02/03/16 12:04pm THI CHUNG M.D. Office Visit [facility] 02/03/16 11:00am THI CHUNG M.D. Registered Clinic [facility] 02/03/16 11:00am LIBRODO, THI M M.D. Office Visit [facility] 01/31/16 9:45am APARNA AGUILAR MD Office Visit [facility] 01/13/16 11:15am APARNA AGUILAR MD Registered Referred [facility] 01/13/16 9:30am OTHER, DOCTOR Office Visit [facility] 12/21/15 11:15am APARNA AGUILAR MD Office Visit [facility] 12/15/15 10:15am APARNA AGUILAR MD Registered Clinic [facility] 12/15/15 10:02am APARNA AGUILAR MD Discharged Inpatient [facility] 12/09/15 10:28am 12/10/15 1:30pm STU TERRELL M.D. Office Visit [facility] 12/01/15 10:30am APARNA AGUILAR MD Registered Referred [facility] 11/17/15 10:41am APARNA AGUILAR MD Office Visit [facility] 11/17/15 9:30am APARNA AGUILAR MD Registered Clinic [facility] 11/14/15 11:45am APARNA AGUILAR MD Office Visit [facility] 11/14/15 11:00am APARNA AGUILAR MD Registered Referred [facility] 11/09/15 11:08am APARNA AGUILAR MD Office Visit [facility] 11/09/15 11:00am APARNA AGUILAR MD Departed Emergency Room [facility] 11/03/15 2:52pm 4:00pm AMANDA FIELDS M.D. Office Visit [facility] 10/28/15 11:30am APARNA AGUILAR MD Office Visit [facility] 10/13/15 11:15am APARNA AGUILAR MD Departed Emergency Room [facility] 09/30/15 4:24pm 6:42pm SANIA PACKER DO Office Visit [facility] 09/08/15 11:00am APARNA AGUILAR MD Registered Referred [facility] 09/08/15 11:00am APARNA AGUILAR MD Registered Referred [facility] 08/16/15 12:00pm OTHER, DOCTOR Office Visit [facility] 08/16/15 11:15am APARNA AGUILAR MD Office Visit [facility] 07/25/15 2:00pm APARNA AGUILAR MD Registered Clinic [facility] 07/06/15 1:46pm APARNA AGUILAR MD Office Visit [facility] 07/06/15 1:45pm APARNA AGUILAR MD Discharged Inpatient (obs) [facility] 06/16/15 1:19pm 4:13pm SANIA VAUGHAN MD Office Visit [facility] 06/15/15 11:30am APARNA AGUILAR MD Office Visit [facility] 05/31/15 9:45am APARNA AGUILAR MD Discharged Inpatient (obs) [facility] 05/23/15 8:13am 07/08 12:14pm SANIA VAUGHAN MD Registered Referred [facility] 05/10/15 11:13am APARNA AGUILAR MD Office Visit [facility] 05/10/15 10:45am APARNA AGUILAR MD Office Visit [facility] 04/26/15 10:15am APARNA AGUILAR MD Office Visit [facility] 04/20/15 1:15pm APARNA AGUILAR MD Office Visit [facility] 04/06/15 10:45am APARNA AGUILAR MD Office Visit [facility] 03/24/15 10:30am APARNA AGUILAR MD Discharged Inpatient (obs) [facility] 03/16/15 3:50pm 5:40pm TATIANA HAWK M.D. Office Visit [facility] 03/15/15 10:45am APARNA AGUILAR MD Registered Referred [facility] 02/23/15 12:47pm APARNA AGUILAR MD Departed Clinic [facility] 02/22/15 11:13am 02/22/15 12: 02pm GIOVANI MONTANEZ MD Registered Referred [facility] 02/22/15 10:57am APARNA AGUILAR MD Office Visit [facility] 02/22/15 10:45am APARNA AGUILAR MD Office Visit [facility] 02/09/15 10:15am APARNA AGUILAR MD Departed Clinic [facility] 01/18/15 11:27am 01/18/15 2: 10pm TATIANA HAWK M.D. Office Visit [facility] 01/18/15 11:00am APARNA AGUILAR MD Discharged Inpatient (obs) [facility] 01/09/15 11:45am 5:55pm TATIANA HAWK M.D. Departed Emergency Room [facility] 12/30/14 11:10am 1:40pm CLARISA ALVES M.D. Office Visit APARNA Vitaliy TURCIOSS 12/27/14 11:15am APARNA AGUILAR MD Office Visit [facility] 12/20/14 1:15pm APARNA AGUILAR MD Registered Referred [facility] 12/16/14 10:00am APARNA AGUILAR MD Office Visit [facility]NA R [facility] 12/16/14 9:45am APARNA AGUILAR MD Office Visit [facility] R [facility] 12/09/14 10:45am APARNA AGUILAR MD Departed Emergency Room [facility] 11/30/14 9:15am 11:05am JAMES WHITE M.D. Office Visit [facility] 11/22/14 9:45am APARNA AGUILAR MD Office Visit [facility] 11/05/14 11:30am APARNA AGUILAR MD Departed Emergency Room [facility] 11/03/14 11:29am 2:37pm NICHOLAS LOZOYA M.D. Departed Clinic [facility] 10/26/14 10:38am 10/26/14 11: 49am GIOVANI MONTANEZ MD Office Visit [facility] 10/26/14 10:00am APARNA AGUILAR MD Departed Emergency Room [facility] 10/21/14 10:14am 11:43am SANIA PACKER DO Office Visit [facility]NA [facility] 10/13/14 1:00pm APARNA AGUILAR MD Departed Clinic [facility] 10/12/14 10:45am 10/12/14 11: 11am GIOVANI MONTANEZ MD Departed Clinic [facility] 09/28/14 10:32am 09/28/14 12: 19pm GIOVANI MONTANEZ MD Office Visit [facility] 09/28/14 10:15am APARNA AGUILAR MD Office Visit [facility] 09/15/14 11:15am APARNA AGUILAR MD Office Visit [facility] 09/01/14 10:45am APARNA AGUILAR MD Departed Clinic [facility] 08/31/14 10:54am 08/31/14 11: 20am GIOVANI MONTANEZ MD Office Visit [facility] 08/18/14 10:45am APARNA AGUILAR MD Office Visit [facility] 08/10/14 10:30am APARNA AGUILAR MD Discharged Inpatient [facility] 08/04/14 4:51pm 08/07/14 5 :05pm TATIANA HAWK M.D. Registered Referred [facility] 08/03/14 12:03pm APARNA AGUILAR MD Office Visit [facility]NA R JE[facility] 08/03/14 11:15am APARNA AGUILAR MD Departed Clinic [facility] 08/03/14 10:26am 08/03/14 11: 34am GIOVANI MONTANEZ MD Office Visit [facility] 07/22/14 10:45am APARNA AGUILAR MD Discharged Inpatient [facility] 07/09/14 11:21am 07/12/14 2:45pm TATIANA HAWK M.D. Registered Referred [facility] 07/08/14 10:00am APARNA AGUILAR MD Office Visit APARNA R JEFF 07/08/14 9:00am APARNA AGUILAR MD Departed Clinic [facility] 07/06/14 10:21am 07/06/14 11: 19am GIOVANI MONTANEZ MD Office Visit APARNA R JEFF 07/02/14 10:30am APARNA AGUILAR MD Discharged Inpatient [facility] 06/15/14 1:11am 06/16/14 11:50am TATIANA HAWK M.D. Departed Clinic [facility] 06/14/14 11:24am 06/14/14 1: 09pm APARNA AGUILAR MD Office Visit APARNA R JEFF 06/14/14 11:00am APARNA AGUILAR MD Office Visit [facility]ARNA R JEFF 06/02/14 11:15am APARNA AGUILAR MD [facility] 05/21/14 10:17pm 05/24/14 11:40am TATIANA HAWK M.D. Office Visit APARNA Burks JEFF 04/26/14 8:45am APARNA AGUILAR MD [facility] 04/20/14 2:16pm APARNA AGUILAR MD Office Visit APARNA R JEFF 04/20/14 1:30pm APARNA AGUILAR MD [facility] 04/20/14 11:00am 04/20/14 11: 57am GIOVANI MONTANEZ MD Office Visit [facility]NA [facility] 04/14/14 11:15am APARNA AGUILAR MD Office Visit [facility]NA R JEFF 04/01/14 10:30am APARNA AGUILAR MD [facility] 03/23/14 10:53am 03/23/14 12: 39pm GIOVANI MONTANEZ MD Office Visit [facility] 03/18/14 10:15am APARNA AGUILAR MD Office Visit [facility]NA R JEFF 03/11/14 11:15am APARNA AGUILAR MD Departed Clinic [facility] 03/09/14 11:00am 03/09/14 11: 22am GIOVANI MONTANEZ MD Discharged Inpatient (obs) [facility] 03/06/14 8:25pm 2:40pm TATIANA HAWK M.D. Office Visit APARNA AGUILAR 03/05/14 11:15am APARNA AGUILAR MD Office Visit [facility]ARNA TURCIOSS 03/01/14 9:15am APARNA AGUILAR MD Registered Referred [facility] 02/26/14 10:23am APARNA AGUILAR MD Office Visit APARNA TURCIOSS 02/26/14 10:00am APARNA AGUILAR MD Departed Clinic [facility] 02/23/14 11:35am 02/23/14 12: 01pm GIOVANI MONTANEZ MD Discharged Inpatient [facility] 02/16/14 8:34pm 02/19/14 4 :30pm TATIANA HAWK M.D. Discharged Inpatient [facility] 02/12/14 2:30am 02/15/14 11:00am APARNA AGUILAR MD Departed Emergency Room [facility] 02/08/14 10:15am 1:28pm CAROLINA DUMONT M.D. Office Visit APARNA TURCIOSS 02/02/14 2:15pm APARNA AGUILAR MD Departed Clinic [facility] 02/02/14 1:31pm 02/02/14 2: 25pm GIOVANI MONTANEZ MD Office Visit APARNA TURCIOSS 01/21/14 10:00am APARNA AGUILAR MD Departed Clinic [facility] 01/12/14 11:43am 01/12/14 12: 38pm GIOVANI MONTANEZ MD Office Visit APARNA TURCIOSS 01/07/14 10:00am APARNA AGUILAR MD Departed Clinic [facility] 12/22/13 12:49pm 12/22/13 1: 23pm GIOVANI MONTANEZ MD Office Visit APARNA TURCIOSS 12/22/13 11:30am APARNA AGUILAR MD Office Visit APARNA R JEFF 12/10/13 11:00am APARNA AGUILAR MD Registered Recurring [facility] 12/01/13 3:00pm APARNA AGUILAR MD Departed Clinic [facility] 12/01/13 2:25pm 12/01/13 2: 50pm GIOVANI MONTANEZ MD Discharged Inpatient (obs) [facility] 11/27/13 2:30am 01/04 10:54am APARNA AGUILAR MD Office Visit [facility]NA R [facility] 11/26/13 10:45am APARNA AGUILAR MD Office Visit AP[facility]NA R JEFF 11/12/13 11:30am APARNA AGUILAR MD Registered Referred [facility] 11/05/13 9:28am APARNA AGUILAR MD Office Visit APARNA R JEFF 11/05/13 9:15am APARNA AGUILAR MD Discharged Inpatient [facility] 10/30/13 12:37pm 11/01/13 10:45am APARNA AGUILAR MD Office Visit AP[facility]NA R JEFF 10/27/13 10:45am APARNA AGUILAR MD Office Visit [facility]NA R JE[facility] 10/06/13 11:15am APARNA AGUILAR MD Office Visit [facility]NA R JEFF 09/24/13 10:00am APARNA AGUILAR MD Office Visit APARNA R JEFF 09/08/13 10:30am APARNA AGUILAR MD Office Visit APARNA R JEFF 08/25/13 10:00am APARNA AGUILAR MD Registered Referred [facility] 08/20/13 12:28pm APARNA AGUILAR MD Office Visit APARNA R JEFF 08/18/13 11:00am APARNA AGUILAR MD Departed Clinic [facility] 08/11/13 2:45pm 08/11/13 3: 19pm GIOVANI MONTANEZ MD Office Visit [facility]NA R JEFF 08/11/13 2:15pm APARNA AGUILAR MD Office Visit APARNA R JEFF 08/05/13 10:45am APARNA AGUILAR MD Recent Diagnosis
--- OUTSIDE RECORDS SUMMARY | 2016-11-10 06:39 | XMS REPORT | Continuity of Care Document ---
Author Author [facility] Organization [facility] Address Unknown Phone Unavailable Care Team Providers Care Principal Android Developer Name Role Phone APARNA AGUILAR MD Unavailable [phone] Insurance Providers Payer Name Policy Number Subscriber Name Relationship [employer]ps Medicare [id number] Amee Guillen 01 Self / Same As Patient For Life [id number] Amee Guillen Self / Same As Patient [...] Active Hx of diabetes mellitus Unknown Active Medications Medication Dose Route Sig [...] 05/27/13 08/25/13 Discontinued Fluticasone Propionate (Nasal) 2 [place] NA DAILY 1 Qty 05/27/13 Discontinued Levofloxacin 500 Mg PO DAILY 10 Qty 05/29/13 07/31/13 Discontinued Magnesium Oxide 400 Mg PO TWICE A DAY 180 Qty 06/30/13 Active Fluconazole 100 Mg PO WEEKLY 12 Qty 06/30/13 Active Tamsulosin Hcl 0.4 Mg PO DAILY 90 Qty 06/30/13 Active Fluticasone Propionate (Nasal) 2 [place] NA DAILY 3 Qty 06/30/13 Active Minocycline [...] Qty 02/08/14 Active Fluticasone Propionate (Nasal) 1-2 Berry NA DAILY 1 Qty 02/12/14 Active Nitroglycerin 0.4 Mg SL NEEDED 1 Qty 02/15/14 Active Sulfamethoxazole-Trimethoprim 1 Tab PO TWICE A DAY 20 Qty 02/15/14 Discontinued Sulfamethoxazole-Trimethoprim 1 Tab PO TWICE A DAY 20 Qty for antibiotic. Take until gone. 02/16/14 02/19/14 Discontinued Levofloxacin 750 Mg PO DAILY 5 Qty 02/19/14 02/26/14 Discontinued Clindamycin Hcl 300 Mg PO THREE TIMES A DAY 15 Qty 02/19/14 02/26/14 Discontinued Lisinopril 5 Mg PO DAILY 30 Qty 02/19/14 02/26/14 Discontinued [place]-3 Fatty Acids 1,000 Mg PO DAILY 03/06/14 Active Ibuprofen 800 Mg PO THREE TIMES A DAY 90 Qty 03/18/14 Active Social History Social History Problem Response Recorded Date/Time Smoking Status Former smoker 03/06/2014 8:30pm Query Response Start Date Stop Date Smoking [...] Vital Signs Vital Response Date/Time Blood Pressure 110/70 mm Hg Blood Pressure Mean 74 mm Hg Blood Pressure Mean 90 mm Hg Temperature (Fahrenheit) 96.5 degrees F (96.0 - 99.9) Temperature (Calculated Celsius) 37.61789 degrees C Temperature (Calculated Celsius) 36.81407 degrees C (36.4 - 37.5) Temperature (Fahrenheit) 98.4 degrees F (96.0 - 99.9) Temperature Source Oral Temperature Source Oral Temp 98.4 degrees F (96.0 - 99.9) Temperature (Calculated Celsius) 36.46105 degrees C Pulse Pulse Rate (adult) 105 bpm (60 - 100) Pulse Rate (adult) 115 bpm (60 - 100) Pulse Rate: ED 96 bpm Respiratory Rate 25 breaths per minute (10 - 20) Respiratory Rate 14 bpm (10 - 20) Height (Feet) 5 ft Height (Inches) 6.0 in. Weight (Pounds) 268.5 lbs Ambulatory Vital Signs Vital Response Date/Time Height 5 ft 5 in 03/18/2014 10:16am Weight 272 lbs 03/18/2014 10:16am Blood Pressure 102/62 mm Hg 03/18/2014 10:16am Body Surface Area 2.45 m2 03/18/2014 10:16am Body Mass Index 45.3 kg/m2 03/18/2014 10:16am Results Test Source Date Result Interp. Ref. Range Comments Activated Partial Thromboplast Time September 23, 2011 6:25am 26.6 SECONDS N 23.0-32.0 COMMENT: 06 Alanine Aminotransferase (ALT/SGPT) March 06, 2014 5:00pm 25 U/L N 5 -40 Albumin March 06, 2014 5:00pm 3.8 gm/dL N 3.2-5.0 Albumin/Globulin Ratio March 06, 2014 5:00pm 1.3 L 1.4-2.4 Alkaline Phosphatase March 06, 2014 5:00pm 69 U/L N 35-125 Ammonia August 28, 2010 8:20pm 28 mcg/dL N 19-60 COMMENTS?NEW ADMIT SERUM AMMONIA,SERUM MAG Anion Gap March 07, 2014 10:25am 10.2 N 6-13 Anisocytosis December 08, 2012 8:20am 2+ COMMENT: 04 Arterial Blood HCO3 October 30, 2013 7:25am 36.9 mEq/L H 21-27 DONE ON O2 AT 4 LPM VIA N/C..THE RESULTS WERE CALLED TO DR. AGUILAR. Arterial Blood Total CO2 October 30, 2013 7:25am 38.8 mM/L H 21-27 Arterial Blood pH October 30, 2013 7:25am 7.39 N 7.35-7.45 Aspartate Amino Transf (AST/SGOT) March 06, 2014 5:00pm 25 U/L N 5- 40 Atypical Lymphocytes June 25, 2012 10:20pm 1.0 % N 0-2 COMMENT: 05 B-Type Natriuretic Peptide March 06, 2014 5:00pm 338 pg/mL H 15-100 BUN/Creatinine Ratio March 07, 2014 10:25am 23.4 Band Neutrophils December 08, 2012 8:20am 2.0 % N 0-7 COMMENT: 04 Basophils # (Auto) March 06, 2014 5:00pm 0.1 K/uL N 0-0.2 Basophils (%) (Auto) March 06, 2014 5:00pm 1.3 % H 0-1 Basophils (Manual) February 14, 2014 6:05am 0.0 % N 0-1 Bedside Blood Urea Nitrogen June 06, 2009 8:27am 44 mg/dL H 8-25 Bedside Chloride June 06, 2009 8:27am 103 mEq/L N 98-116 Bedside Creatinine June 06, 2009 8:27am 1.6 mg/dL N 0.9-1.6 Bedside Glucose March 07, 2014 11:28am 164 mg/dL H 70-120 Bedside Hematocrit June 06, [...] 78 mmHg L 89-100 Blood Urea Nitrogen March 07, 2014 10:25am 25 mg/dL N 8-25 C-Reactive Protein June 25, 2012 10:20pm 8.0 mg/L <6.0 COMMENT: 05 Calcium Level March 07, 2014 10:25am 8.6 mg/dL N 8.2-10.6 Carbon Dioxide Level March 07, 2014 10:25am 35 mEq/L DH 22-34 Chloride Level March 07, 2014 10:25am 97 mEq/L L 98-116 Cholesterol Level February 20, 2002 8:12am 130 mg/dL N 120-200 Creatine Kinase MB February 19, 2012 3:45pm 1.5 ng/mL N 0.0-6.0 COMMENT: 02 Creatinine March 07, 2014 10:25am 1.07 mg/dL DN 0.9-1.6 Creatinine Clearance December 21, 1998 3:22pm [...] 9:42am 2.3 ng/ml PH Eosinophils # (Auto) March 06, 2014 5:00pm 0.6 K/uL N 0-0.8 Eosinophils (%) (Auto) March 06, 2014 5:00pm 14.0 % H 0-7.0 Eosinophils (Manual) February 14, 2014 6:05am 12.0 % H 0-7.0 Erythrocyte Sedimentation Rate May 29, 2010 1:10pm 7 mm/hr N 0-20 Folate August 06, 2000 6:50am See separate report ng/ml Free Thyroxine Index August 06, 2000 6:50am 5.10 N 3.6-14.0 Globulin March 06, 2014 5:00pm 3.0 gm/dL N 2.0-3.0 Glomerular Filtration Rate Calc March 07, 2014 10:25am > 60.00 mL/min MULTIPLY RESULT BY 1.210 [...] PROCEDURE - PT IN RR NOW Hematocrit March 06, 2014 5:00pm 44.5 % N 40.0-54.0 Hemoglobin March 06, 2014 5:00pm 13.9 g/dL L 14.0-18.0 Hepatitis B Surface [...] 0-0.4 COMMENT: 04 Immature Granulocyte # (Auto) March 06, 2014 5:00pm 0.01 K/uL N 0- 0.40 Immature Granulocyte % (Auto) March 06, 2014 5:00pm 0.2 % N 0-0.5 LDL Cholesterol February 20, 2002 8:12am 59 mg/dL N 25-160 Lab Scanned Report March 12, 2014 11:51am Lab Scanned Report [id number] Lactate Dehydrogenase September 28, 1998 4:10pm 152 U/L N COMMENTS? CARDIAC ENZYMES NOW Lactic Acid Level February 12, 2014 11:00am 1.9 mmol/L N 0.5-2.2 Lipase February 08, 2014 11:07am 16 U/L N 8-57 Lymphocytes # (Auto) March 06, 2014 5:00pm 1.2 K/uL N 0.9-5.2 Lymphocytes (%) (Auto) March 06, 2014 5:00pm 25.9 % N 16.0-44.0 Lymphocytes (Manual) February 14, 2014 6:05am 26.0 % N 21.0-51.0 Macrocytosis December 08, 2012 8:20am 2+ COMMENT: 04 Magnesium Level August 27, 2011 10:20am 1.7 mg/dL N 1.3-2.5 Mean Corpuscular Hemoglobin March 06, 2014 5:00pm 30.5 pg N 26.0- 33.0 Mean Corpuscular Hemoglobin Concent March 06, 2014 5:00pm 31.2 g/dL N 31.0-36.0 Mean Corpuscular Volume March 06, 2014 5:00pm 97.8 fL H 80.0-94.0 Mean Platelet Volume March 06, 2014 5:00pm 9.6 fL N 7.0-11.0 Metamyelocytes January 22, 2008 7:03pm 2.0 % Microcytosis November 03, 2006 8:55am 1+ COMMENTS?ROOM 2 Monocytes # (Auto) March 06, 2014 5:00pm 0.6 K/uL N 0.16-1.0 Monocytes (%) (Auto) March 06, 2014 5:00pm 13.6 % H 2.0-9.0 Monocytes (Manual) February 14, 2014 6:05am 16.0 % H 2.0-9.0 Myelocytes January 22, 2008 7:03pm 1.0 % Neutrophils February 14, 2014 6:05am 46.0 % N 42.0-75.0 Neutrophils # (Auto) March 06, 2014 5:00pm 2.1 K/uL N 1.9-8.0 Neutrophils (%) (Auto) March 06, 2014 5:00pm 45.0 % N 42.0-75.0 Nucleated Red Blood Cells # March 06, 2014 5:00pm 0.00 K/uL N 0.0- 0.012 Nucleated Red Blood Cells % March 06, 2014 5:00pm 0.0 /100WBC N 0-0 Ovalocytes January 22, 2006 9:55pm 1+ COMMENTS?ROOM 5 Platelet Count March 06, 2014 5:00pm 133 K/uL N 130-400 Platelet Estimate February 14, 2014 6:05am Normal NORMAL Poikilocytosis January 22, 2006 9:55pm 1+ COMMENTS?ROOM 5 Polychromasia August 10, 2006 10:30pm 1+ COMMENTS?ROOM 2 Potassium Level March 07, 2014 10:25am 4.2 mEq/L DN 3.5-5.1 Prealbumin May 30, 2010 3:30pm 27.3 [...] 11.1 SECONDS N 9.0-12.0 RDW Standard Deviation March 06, 2014 5:00pm 51.3 fL H 35.1-43.9 Random Glucose March 07, 2014 10:25am 140 mg/dL H 65-115 Rapid Troponin I August 28, 2010 3:40pm 0.00 ng/mL N 0.00-0.03 < 0.03 ng/mL=NORMAL0.04 - 0.50 ng/mL=CARDIAC CONDITION >0.50 ng/mL=SUGGESTS AMI Red Blood Cell Morphology August 27, 2002 7:35pm Normal Red Blood Count March 06, 2014 5:00pm 4.55 M/uL L 4.60-5.40 Red Cell Distribution Width March 06, 2014 5:00pm 14.3 % N 11.5- 14.5 Sodium Level March 07, 2014 10:25am 138 mEq/L N 133-145 Stomatocytes December 08, [...] Synovial Fluid WBC September 27, 1998 12:00am 72935.0 /uL PH Target Cells August 05, 2001 7:20am 2+ COMMENTS? SEND TO [facility] ON ARRIVAL Thyroid Stimulating Hormone (TSH) May 29, 2010 1:10pm 10.62 uIU/ml H 0.34-5.60 Thyroxine (T4) August 06, 2000 6:50am 5.8 ug/dl N 4.7-11.5 Total Bilirubin March 06, 2014 5:00pm 0.3 mg/dL N 0.1-1.3 Total Creatine Kinase February 19, 2012 3:45pm 27 U/L N 10-180 COMMENT: 02 Total Protein March 06, 2014 5:00pm 6.8 gm/dL N 6.0-8.4 Toxic Granulation May [...] Trace COMMENT: 05SOURCE: URINE, RANDOM Urine Appearance March 06, 2014 6:15pm Clear SOURCE: URINE, CLEAN CATCH Urine Bacteria May 07, 2012 12:00am None /hpf NONE COMMENT: 05SOURCE: URINE, CLEAN CATCH Urine Bilirubin March 06, 2014 6:15pm Negative NEGATIVE SOURCE: URINE, CLEAN CATCH Urine Casts December 08, 2011 11:25am None /lpf NONE COMMENT: 05SOURCE: URINE, RANDOM Urine Color March 06, 2014 6:15pm Yellow SOURCE: URINE, CLEAN CATCH Urine Creatinine December 21, 1998 3:22pm 1.8 mg/dL Urine Crystals December 08, 2011 11:25am None /hpf NONE COMMENT: 05SOURCE : URINE, RANDOM Urine Epithelial Cells May 07, 2012 12:00am Few /lpf COMMENT: 05SOURCE: URINE, CLEAN CATCH Urine Glucose (UA) March 06, 2014 6:15pm Negative NEGATIVE SOURCE : URINE, CLEAN CATCH Urine Ketones March 06, 2014 6:15pm Negative NEGATIVE SOURCE: URINE, CLEAN CATCH Urine Leukocyte Esterase March 06, 2014 6:15pm Negative NEGATIVE SOURCE: URINE, CLEAN CATCH Urine Mucus December 08, 2011 11:25am None /lpf NONE COMMENT: 05SOURCE: URINE, RANDOM Urine Nitrate March 06, 2014 6:15pm Negative NEGATIVE SOURCE: URINE, CLEAN CATCH Urine Occult Blood March 06, 2014 6:15pm Negative NEGATIVE SOURCE : URINE, CLEAN CATCH Urine Other December 08, 2011 11:25am N COMMENT: 05SOURCE: URINE, RANDOM Urine Protein March 06, 2014 6:15pm Negative NEGATIVE SOURCE: URINE, CLEAN CATCH Urine RBC May 07, 2012 12:00am None /hpf NONE COMMENT: 05SOURCE : URINE, CLEAN CATCH Urine Specific [place] March 06, 2014 6:15pm 1.015 1.005-1.030 SOURCE: URINE, CLEAN CATCH Urine Total Protein 24 Hour March 12, 2001 11:36am 98.4 mg/24hrs N 30-150 Urine Total Volume December 10, 2001 11:20am 4475 mL Urine Uric Acid 24 Hour December 21, 1998 3:22pm 1118.0 MG/24 HR H 250-750 Urine Urobilinogen March 06, 2014 6:15pm 0.2 E.U./dL 0.2-1.0 SOURCE: URINE, CLEAN CATCH Urine WBC May 07, 2012 12:00am None /hpf NONE COMMENT: 05SOURCE : URINE, CLEAN CATCH Urine WBC Clumps December 08, 2011 11:25am 0-1 /hpf NONE COMMENT: 05SOURCE: URINE, RANDOM Urine pH March 06, 2014 6:15pm 6.0 4.5-8.0 SOURCE: URINE, CLEAN CATCH VLDL [...] See separate report pg/ml White Blood Count March 06, 2014 5:00pm 4.6 K/uL L 5.0-10.0 Whole Blood Anion Gap June 06, 2009 8:27am 11 N 10-20 Blood Culture Blood March 06, 2014 8:10pm No growth. Body Fluid Culture Synovial Fluid [...] Encounter Location Date/Time Registered Clinic [facility] 03/23/14 10:53am Office Visit [facility]NA R [facility] 03/18/14 10:15am Office Visit [facility] 03/11/14 11:15am Registered Clinic [facility] 03/09/14 11:00am Discharged Inpatient [facility] 03/06/14 8:25pm Office Visit [facility]NA [facility] 03/05/14 11:15am Office Visit [facility] 03/01/14 9:15am Office Visit [facility] 02/26/14 10:00am Registered Clinic [facility] 02/23/14 11:35am Discharged Inpatient [facility] 02/16/14 8:34pm Discharged Inpatient [facility] 02/12/14 2:30am Departed Emergency Room [facility] 02/08/14 10:15am Office Visit APARNA R JEFF 02/02/14 2:15pm Registered Clinic [facility] 02/02/14 1:31pm Office Visit [facility]NA R JE[facility] 01/21/14 10:00am Registered Clinic [facility] 01/12/14 11:43am Office Visit [facility]NA R JE[facility] 01/07/14 10:00am Registered Clinic [facility] 12/22/13 12:49pm Office Visit APARNA R JEFF 12/22/13 11:30am Office Visit [facility]NA R JE[facility] 12/10/13 11:00am Registered [facility] 12/01/13 3:00pm Registered Clinic [facility] 12/01/13 2:25pm Discharged Inpatient [facility] 11/27/13 2:30am Office Visit APARNA R JEFF 11/26/13 10:45am Office Visit [facility]NA R JE[facility] 11/12/13 11:30am Office Visit [facility] 11/05/13 9:15am Discharged Inpatient [facility] 10/30/13 12:37pm Office Visit [facility]NA R [facility] 10/27/13 10:45am Office Visit [facility] 10/06/13 11:15am Office Visit [facility] 09/24/13 10:00am Office Visit [facility] 09/08/13 10:30am Office Visit [facility] 08/25/13 10:00am Office Visit [facility] 08/18/13 11:00am Registered Clinic [facility] 08/11/13 2:45pm Office Visit APARNA R JE[facility] 08/11/13 2:15pm Office Visit [facility] 08/05/13 10:45am Office Visit [facility] 07/31/13 1:00pm Office Visit [facility] 07/30/13 10:05am Office Visit [facility] 07/24/13 11:30am Office Visit [facility] 07/14/13 10:30am Office Visit [facility] 06/30/13 10:30am Registered Clinic [facility] 06/09/13 11:37am Office Visit AP[facility]NA R JE[facility] 06/09/13 11:30am Registered Clinic [facility] 06/02/13 11:35am Office Visit AP[facility]NA R JE[facility] 06/02/13 11:15am Discharged Inpatient [facility] 05/28/13 7:10am Office Visit AP[facility]NA R JEFF 05/27/13 1:00pm Discharged Inpatient [facility] 05/25/13 9:20am Office Visit APARNA R JEFF 05/19/13 11:15am Registered Clinic [facility] 05/12/13 1:36pm Office Visit APARNA R JE[facility] 05/12/13 1:15pm Office Visit [facility] 05/06/13 11:15am Office Visit [facility] 04/22/13 11:00am Office Visit [facility] 04/09/13 10:30am Office Visit [facility] R [facility] 03/26/13 11:00am
--- NOTE | 2016-11-10 06:40 | NUR ---
[facility] CON[facility]CT AND PT IS NO APPROPRIATE FOR ANY DONATION.
--- OUTSIDE RECORDS SUMMARY | 2016-11-10 06:40 | XMS REPORT | Continuity of Care Document ---
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 06/15/14 3:31am Chief Complaint and Reason for Visit Chief Complaint dyspnea Reason for Visit Benign essential hypertension Chronic congestive heart failure Diabetes mellitus Hypoxia Pneumonia Problems Medical Problems Problem Onset Date [...] 05/27/13 08/25/13 Discontinued Fluticasone Propionate (Nasal) 2 [place] NA DAILY 1 Qty 05/27/13 Discontinued Levofloxacin 500 Mg PO DAILY 10 Qty 05/29/13 07/31/13 Discontinued Magnesium Oxide 400 Mg PO TWICE A DAY For NUTRIENT REPLACEMENT 180 Qty 06/30/13 04/07/14 Discontinued Fluconazole 100 Mg PO WEEKLY For PREVENT INFECTION 12 Qty 06/30/1303/07 Discontinued Tamsulosin Hcl 0.4 Mg PO DAILY For DYSUREA 90 Qty 06/30/13 Active Fluticasone Propionate (Nasal) 2 [place] NA DAILY For CONGESTION 3 Qty Active [...] Qty 02/08/14 Active Fluticasone Propionate (Nasal) 1-2 [place] NA DAILY For STUFFY NOSE 1 Qty [...] For CHF 30 Qty 02/19/14 02/26/14 Discontinued [place]-3 Fatty Acids 1,000 Mg PO DAILY 03/06/14 [...] Qty 06/02/14 Active Fluticasone Propionate (Nasal) 1-2 [place] NA DAILY For STUFFY NOSE 1 Qty 06/02/14 Active Tramadol Hcl 1-2 Tab PO Every 6 hours as needed For BREAKTHROUGH PAIN 100 Qty 06/02/14 Active Spironolactone 100 Mg PO TWICE A DAY 60 Qty 06/02/14 Active Levofloxacin 750 Mg PO Q24H For PNA 12 Qty 06/16/14 Active Social History Social History Problem Response Recorded Date/Time Smoking Status Former smoker 06/16/2014 10:27am Query Response Start Date Stop Date Smoking Status Former smoker Hospital Discharge Instructions Discharge Instructions Provider Instructions Dismiss Date: Jun 16, 2014 Dismiss: Home Diet: As Tolerated Activity: As Tolerated Discharge Instructions D/C home. Follow up with PCP in 1-2 weeks. Dismiss Date: Jun 16, 2014 Dismiss: Home with Home Health Diet: As Tolerated Activity: As Tolerated Discharge Instructions D/C home. Follow up with PCP in 1-2 weeks. Plan of Care Discharge Date 06/16/14 11:50am Disposition 06 HOME HEALTH SERVICE Prescriptions See Medications Section Functional Status Query Response Date Recorded Overall Activities Daily Living Ability/Staff Support Independ/Setup help only June 15, 2014 3:32am Toileting Ability/Staff Support Extens/One person assist June 15, 2014 7:30am Oral Care Ability/Staff Support Limited/One person assist June 16, 2014 10:46am Upper Body Dressing Ability/Staff Support Extens/One person assist June 15, 2014 7:30am Lower Body Dressing Ability/Staff Support Activity did not occur June 15, 2014 7:30am Cognitive Skills Independent June 16, 2014 8:00am Making self understood Understood June 16, 2014 8:00am Allergies, Adverse Reactions, Alerts Allergen Type Severity [...] Vital Signs Vital Response Date/Time Blood Pressure 105/73 mm Hg Blood Pressure Mean 74 mm Hg Blood Pressure Mean 84 mm Hg Temperature (Fahrenheit) 97.4 degrees F (96.0 - 99.9) Temperature (Calculated Celsius) 36.39034 degrees C Temperature (Calculated Celsius) 36.36710 degrees C (36.4 - 37.5) Temperature (Fahrenheit) 98.4 degrees F (96.0 - 99.9) Temperature Source Oral Temperature Source Axillary Temp 98.4 degrees F (96.0 - 99.9) Temperature (Calculated Celsius) 36.75524 degrees C Pulse Pulse Rate (adult) 102 bpm (60 - 100) Pulse Rate (adult) 115 bpm (60 - 100) Pulse Rate: ED 90 bpm Pulse Pulse Rate (adult) 102 bpm (60 - 100) Respiratory Rate 18 breaths per minute (10 - 20) Respiratory Rate 14 bpm (10 - 20) Height (Feet) 5 ft Height (Inches) 6.0 in. Weight (Pounds) 270.4 lbs Height 5 ft 6 in Weight 272 lb Body Mass Index 44.0 kg/m^2 Ambulatory [...] 8:27am 1.6 mg/dL N 0.9-1.6 Bedside Glucose June 16, 2014 7:45am 106 mg/dL N 70-120 Bedside Hematocrit June 06, [...] April 29, 2014 8:54am Lab Scanned Report [id number] Lactate Dehydrogenase September 28, 1998 4:10pm 152 [...] Synovial Fluid WBC September 27, 1998 12:00am 09495.0 /uL PH Target Cells August 05, 2001 [...] NONE SOURCE: URINE, CLEAN CATCH Urine Specific [place] June 15, 2014 12:35am 1.025 1.005-1.030 SOURCE: [...] 8:27am 11 N 10-20 Blood Culture Blood June 15, 2014 12:45am No growth. Body Fluid Culture Synovial Fluid [...] Encounter Location Date/Time Discharged Inpatient [facility] [place] 06/15/14 1:11am Registered Clinic [facility] 06/14/14 11:24am Office Visit APARNA AGUILAR 06/14/14 11:00am Office Visit APARNA AGUILAR 06/02/14 11:15am Discharged Inpatient [facility] 05/21/14 10:17pm Office Visit APARNA AGUILAR 04/26/14 8:45am Office Visit APARNA AGUILAR 04/20/14 1:30pm Registered Clinic [facility] [place] 04/20/14 11:00am Office Visit APARNA AGUILAR 04/14/14 11:15am Office Visit APARNA AGUILAR 04/01/14 10:30am Registered Clinic [facility] [place] 03/23/14 10:53am Office Visit APARNA AGUILAR 03/18/14 10:15am Office Visit APARNA AGUILAR 03/11/14 11:15am Registered Clinic [facility] [place] 03/09/14 11:00am Discharged Inpatient [place] [facility] [facility] 03/06/14 8:25pm Office Visit APARNA AGUILAR 03/05/14 11:15am Office Visit APARNA R JEFF 03/01/14 9:15am Office Visit [facility]NA R JE[facility] 02/26/14 10:00am Registered Clinic [facility] [place] 02/23/14 11:35am Discharged Inpatient A[facility] [place] 02/16/14 8:34pm Discharged Inpatient Aida [facility] [place] 02/12/14 2:30am Departed Emergency Room [facility] [place] 02/08/14 10:15am Office Visit APARNA R JEFF 02/02/14 2:15pm Registered Clinic [facility] [place] 02/02/14 1:31pm Office Visit AP[facility]NA R JEFF 01/21/14 10:00am Registered Clinic [facility] [place] 01/12/14 11:43am Office Visit [facility]NA R JE[facility] 01/07/14 10:00am Registered Clinic [facility] [place] 12/22/13 12:49pm Office Visit APARNA R JEFF 12/22/13 11:30am Office Visit AP[facility]NA R JEFF 12/10/13 11:00am Registered Recurring A[facility] [place] 12/01/13 3:00pm Registered Clinic [facility] [place] 12/01/13 2:25pm Discharged Inpatient A[facility] [place] 11/27/13 2:30am Office Visit APARNA R JEFF 11/26/13 10:45am Office Visit [facility]NA R JE[facility] 11/12/13 11:30am Office Visit [facility]NA R JEFF 11/05/13 9:15am Discharged Inpatient A[facility] [place] 10/30/13 12:37pm Office Visit AP[facility]NA R JEFF 10/27/13 10:45am Office Visit [facility] R [facility] 10/06/13 11:15am Office Visit [facility] R [facility] 09/24/13 10:00am Office Visit [facility] 09/08/13 10:30am Office Visit [facility] R [facility] 08/25/13 10:00am Office Visit AP[facility]NA R JEFF 08/18/13 11:00am Registered Clinic [facility] [place] 08/11/13 2:45pm Office Visit APARNA R JEFF 08/11/13 2:15pm Office Visit [facility] R [facility] 08/05/13 10:45am Office Visit APARNA AGUILAR 07/31/13 1:00pm Office Visit APARNA AGUILAR 07/30/13 10:05am Office Visit APARNA AGUILAR 07/24/13 11:30am Office Visit APARNA AGUILAR 07/14/13 10:30am Office Visit APARNA AGUILAR 06/30/13 10:30am Recent Diagnosis Benign essential hypertension Chronic congestive heart failure Diabetes mellitus Hypoxia Pneumonia
--- OUTSIDE RECORDS SUMMARY | 2016-11-10 06:40 | XMS REPORT | Continuity of Care Document ---
Author Author [facility] Organization [facility] Address Unknown Phone Unavailable Care Team Providers Care Finish Specialist Name Role Phone APARNA AGUILAR MD Unavailable [phone] Insurance Providers Payer Name Policy Number Subscriber Name Relationship Wps Medicare [id number] Amee Guillen 01 Self / Same As Patient For Life [id number] Amee Guillen Self / Same As Patient [...] mellitus Unknown Active Chronic pain Unknown Active Medications Medication Dose Route Sig [...] PO TWICE A DAY 60 Qty 06/03/12 04/01/14 Discontinued Tramadol Hcl [...] 05/27/13 08/25/13 Discontinued Fluticasone Propionate (Nasal) 2 [place] NA DAILY 1 Qty 05/27/13 Discontinued Levofloxacin 500 Mg PO DAILY 10 Qty 05/29/13 07/31/13 Discontinued Magnesium Oxide 400 Mg PO TWICE A DAY 180 Qty 06/30/13 04/07/14 Discontinued Fluconazole 100 Mg PO WEEKLY 12 Qty 06/30/13 04/01/14 Discontinued Tamsulosin Hcl 0.4 Mg PO DAILY 90 Qty 06/30/13 Active Fluticasone Propionate (Nasal) 2 [place] NA DAILY 3 Qty 06/30/13 Active Minocycline Hcl 100 Mg PO DAILY 90 Qty 07/14/13 Active Tramadol Hcl 1-2 Tab PO Every 6 hours as needed 100 Qty 07/14/1304/01 Discontinued Insulin Glargine 20 Unit SC BEDTIME [...] PO TWICE A DAY 60 Qty 11/26/13 04/07/14 Discontinued Spironolactone 100 Mg PO DAILY 11/27/13 Active Potassium Chloride 40 Meq PO TWICE A DAY 11/27/13 Active Ondansetron 4 Mg PO DAILY 11/27/13 02/08/14 Discontinued Albuterol/Ipratropium 1 Puffs IH FOUR TIMES DAILY 11/27/13 Active Albuterol 1 Ea INH DIRECTED 25 Qty 11/30/13 Active Lorazepam 0.5 Mg PO Every 4 hours as needed 60 Qty 12/22/13 04/07/14 Discontinued Menthol-Zinc Oxide 1 Un EX DAILY 1 Qty 12/22/13 Active Ondansetron 4 Mg PO DAILY 30 Qty 02/08/14 Active Fluticasone Propionate (Nasal) 1-2 [place] NA DAILY 1 Qty 02/12/14 Active Nitroglycerin [...] PO DAILY 30 Qty 02/19/14 02/26/14 Discontinued [place]-3 Fatty Acids 1,000 Mg PO DAILY 03/06/14 Active Ibuprofen 800 Mg PO THREE TIMES A DAY 90 Qty 03/18/14 Active Ranitidine Hcl 150 Mg PO TWICE A DAY 180 Qty 04/01/14 Active Fluconazole 100 Mg PO WEEKLY 12 Qty 04/01/14 Active Tramadol Hcl 1-2 Tab PO Every 6 hours as needed 100 Qty 04/01/14 Active Magnesium Oxide 400 Mg PO TWICE A DAY 180 Qty 04/07/14 Active Furosemide 80 Mg PO TWICE A DAY 180 Qty 04/07/14 Active Lorazepam 0.5 Mg PO Every 4 hours as needed 60 Qty 04/07/14 Active Social History Social History Problem Response [...] Vital Signs Vital Response Date/Time Blood Pressure 106/70 mm Hg Blood Pressure Mean 74 mm Hg Blood Pressure Mean 90 mm Hg Temperature (Fahrenheit) 97.6 degrees F (96.0 - 99.9) Temperature (Calculated Celsius) 37.17672 degrees C Temperature (Calculated Celsius) 36.48642 degrees C (36.4 - 37.5) Temperature (Fahrenheit) 98.4 degrees F (96.0 - 99.9) Temperature Source Oral Temperature Source Oral Temp 98.4 degrees F (96.0 - 99.9) Temperature (Calculated Celsius) 36.76892 degrees C Pulse Pulse Rate (adult) 88 bpm (60 - 100) Pulse Rate (adult) 115 bpm (60 - 100) Pulse Rate: ED 96 bpm Respiratory Rate 25 breaths per minute (10 - 20) Respiratory Rate 14 bpm (10 - 20) Height (Feet) 5 ft Height (Inches) 6.0 in. Weight (Pounds) 268.5 lbs Ambulatory Vital Signs Vital Response Date/Time Height 5 ft 5 in 04/14/2014 9:26am Weight 272 lbs 04/14/2014 9:26am Blood Pressure 100/58 mm Hg 04/14/2014 9:26am Body Surface Area 2.45 m2 04/14/2014 9:26am Body Mass Index 45.3 kg/m2 04/14/2014 9:26am Results Test Source Date Result Interp. Ref. [...] March 12, 2014 11:51am Lab Scanned Report [id number] Lactate Dehydrogenase September 28, 1998 4:10pm 152 [...] Synovial Fluid WBC September 27, 1998 12:00am 92469.0 /uL PH Target Cells August 05, 2001 [...] 05SOURCE : URINE, CLEAN CATCH Urine Specific [place] March 06, 2014 6:15pm 1.015 1.005-1.030 SOURCE: [...] Encounter Location Date/Time Registered Clinic [facility] 04/20/14 11:00am Office Visit APARNA AGUILAR 04/14/14 11:15am Office Visit APARNA AGUILAR 04/01/14 10:30am Registered Clinic [facility] 03/23/14 10:53am Office Visit APARNA AGUILAR 03/18/14 10:15am Office Visit APARNA TURCIOSS 03/11/14 11:15am Registered Clinic [facility] 03/09/14 11:00am Discharged Inpatient [facility] 03/06/14 8:25pm Office Visit APARNA AGUILAR 03/05/14 11:15am Office Visit APARNA AGUILAR 03/01/14 9:15am Office Visit APARNA AGUILAR 02/26/14 10:00am Registered Clinic [facility]idaeleni [facility] 02/23/14 11:35am Discharged Inpatient [facility] 02/16/14 8:34pm [facility] 2:30[facility] Departed Emergency Room [facility] 02/08/14 10:15am Office Visit APARNA AGUILAR 02/02/14 2:15pm Registered Clinic Aidaeleni [facility] 02/02/14 1:31pm Office Visit APARNA AGUILAR 01/21/14 10:00am Registered Clinic [facility] 01/12/14 11:43am Office Visit APARNA R JEFF 01/07/14 10:00am Registered Clinic [facility]ida [facility] 12/22/13 12:49pm Office Visit APARNA R JEFF 12/22/13 11:30am Office Visit APARNA R JEFF 12/10/13 11:00am Registered Recurring Aida Benson [facility] 12/01/13 3:00pm Registered Clinic Aida [facility] 12/01/13 2:25pm Discharged Inpatient Aida Benson [facility] 11/27/13 2:30am Office Visit APARNA R JEFF 11/26/13 10:45am Office Visit APARNA R JEFF 11/12/13 11:30am Office Visit APARNA R JEFF 11/05/13 9:15am Discharged Inpatient Aida Benson [facility] 10/30/13 12:37pm Office Visit APARNA R JEFF 10/27/13 10:45am Office Visit APARNA R JEFF 10/06/13 11:15am Office Visit APARNA R JEFF 09/24/13 10:00am Office Visit APARNA R JEFF 09/08/13 10:30am Office Visit APARNA R JEFF 08/25/13 10:00am Office Visit APARNA R JEFF 08/18/13 11:00am Registered Clinic Aida [facility] 08/11/13 2:45pm Office Visit APARNA R JEFF 08/11/13 2:15pm Office Visit APARNA R JEFF 08/05/13 10:45am Office Visit APARNA R JEFF 07/31/13 1:00pm Office Visit APARNA R JEFF 07/30/13 10:05am Office Visit APARNA R JEFF 07/24/13 11:30am Office Visit APARNA R JEFF 07/14/13 10:30am Office Visit APARNA R JEFF 06/30/13 10:30am Registered Clinic Aida [facility] 06/09/13 11:37am Office Visit APARNA R JEFF 06/09/13 11:30am Registered Clinic Aida [facility] 06/02/13 11:35am Office Visit APARNA R JEFF 06/02/13 11:15am Discharged Inpatient Aida [facility] 05/28/13 7:10am Office Visit APARNA R JEFF 05/27/13 1:00pm Discharged Inpatient Aida [facility] 05/25/13 9:20am Office Visit APARNA AGUILAR 05/19/13 11:15am Registered Clinic [facility]ida [facility] 05/12/13 1:36pm Office Visit APARNA AGUILAR 05/12/13 1:15pm Office Visit APARNA AGUILAR 05/06/13 11:15am Office Visit APARNA AGUILAR 04/22/13 11:00am
--- OUTSIDE RECORDS SUMMARY | 2016-11-10 06:41 | XMS REPORT | Continuity of Care Document ---
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 Name Role Phone APARNA AGUILAR MD Unavailable [phone] Insurance Providers Payer Name Policy Number Subscriber Name Relationship Wps Medicare [id number] Amee Guillen 01 Self / Same As Patient For Life [id number] Amee Guillen Self / Same As Patient [...] 08/25/13 Discontinued Fluticasone Propionate (Nasal) 2 [employer] [place] NA DAILY 1 Qty 05/27/13 Discontinued Levofloxacin [...] 02/08/14 Active Fluticasone Propionate (Nasal) 1-2 [place] NA DAILY For STUFFY NOSE 1 Qty [...] TWICE A DAY 20 Qty 10/26/14 Active Social History Social History Problem Response [...] Vital Signs Vital Response Date/Time Blood Pressure 92/61 mm Hg Blood Pressure Mean 74 mm Hg Blood Pressure Mean 80 mm Hg Temperature (Fahrenheit) 98.4 degrees F (96.0 - 99.9) Temperature (Calculated Celsius) 36.04839 degrees C Temperature (Calculated Celsius) 36.94017 degrees C (36.4 - 37.5) Temperature (Fahrenheit) 98.4 degrees F (96.0 - 99.9) Temperature Source Oral Temperature Source Oral Temp 98.4 degrees F (96.0 - 99.9) Temperature (Calculated Celsius) 36.31141 degrees C Pulse Pulse Rate (adult) 94 [...] 7.32 L 7.35-7.45 Aspartate Amino Transf (AST/SGOT) October 21, [...] 103 mmHg H 89-100 Blood Urea Nitrogen October 21, 2014 [...] April 29, 2014 8:54am Lab Scanned Report [id number] Lactate Dehydrogenase September 28, 1998 4:10pm 152 [...] Synovial Fluid WBC September 27, 1998 12:00am 47768.0 /uL PH Target Cells August 05, 2001 [...] NONE SOURCE: URINE, CLEAN CATCH Urine Specific [place] July 09, 2014 6:35am 1.015 1.005-1.030 SOURCE: [...] Encounters Encounter [facility] Date[facility] 10:38am Office Visit APARNA AGUILAR 10/26/14 10:00am [facility] 10/21/14 10:14am Office Visit APARNA AGUILAR 10/13/14 1:00pm Registered Clinic [facility] 10/12/14 10:45am Registered Clinic [facility] 09/28/14 10:32am Office Visit APARNA AGUILAR 09/28/14 10:15am Office Visit APARNA AGUILAR 09/15/14 11:15am Office Visit APARNA AGUILAR 09/01/14 10:45am Registered Clinic [facility] 08/31/14 10:54am Office Visit APARNA AGUILAR 08/18/14 10:45am Office Visit APARNA AGUILAR 08/10/14 10:30am Discharged [facility] 08/04/14 4:51pm Office Visit APARNA AGUILAR 08/03/14 11:15am Registered Clinic [facility] 08/03/14 10:26am Office Visit APARNA AGUILAR 07/22/14 10:45am Discharged Inpatient [facility] 07/09/14 11:21am Office Visit APARNA AGUILAR 07/08/14 9:00am Registered Clinic [facility] 07/06/14 10:21am Office Visit APARNA DELUCAHNS 07/02/14 10:30am Discharged Inpatient Aida [facility] 06/15/14 1:11am Registered Clinic Aida [facility] 06/14/14 11:24am Office Visit APARNA R JEFF 06/14/14 11:00am Office Visit APARNA R JEFF 06/02/14 11:15am Discharged Inpatient Aida Benson [facility] 05/21/14 10:17pm Office Visit APARNA Vitaliy DELUCAJEFF 04/26/14 8:45am Office Visit APARNA Vitaliy DELUCAJEFF 04/20/14 1:30pm Registered Clinic Aida [facility] 04/20/14 11:00am Office Visit APARNA R JEFF 04/14/14 11:15am Office Visit APARNA DELUCAHNS 04/01/14 10:30am Registered Clinic Aida [facility] 03/23/14 10:53am Office Visit APARNA R JEFF 03/18/14 10:15am Office Visit APARNA R JEFF 03/11/14 11:15am Registered Clinic Aida [facility] 03/09/14 11:00am Discharged Inpatient Aida Ramon [facility] 03/06/14 8:25pm Office Visit APARNA R JEFF 03/05/14 11:15am Office Visit APARNA Vitaliy JEFF 03/01/14 9:15am Office Visit APARNA DELUCAHNS 02/26/14 10:00am Registered Clinic A[facility] 02/23/14 11:35am Discharged Inpatient Aida Benson [facility] 02/16/14 8:34pm Discharged Inpatient Aida [facility] 02/12/14 2:30am Departed Emergency Room Aidaeleni [facility] 02/08/14 10:15am Office Visit APARNA DELUCAHNS 02/02/14 2:15pm Registered Clinic [facility] 02/02/14 1:31pm Office Visit APARNA DELUCAHNS 01/21/14 10:00am Registered Clinic Aida [facility] 01/12/14 11:43am Office Visit APARNA AGUILAR 01/07/14 10:00am Registered Clinic Aida [facility] 12/22/13 12:49pm Office Visit APARNA AGUILAR 12/22/13 11:30am Office Visit APARNA AGUILAR 12/10/13 11:00am Registered [facility] 12/01/13 3:00pm Registered Clinic Aida [facility] 12/01/13 2:25pm Discharged Inpatient Aida Benson [facility] 11/27/13 2:30am Office Visit APARNA AGUILAR 11/26/13 10:45am Office Visit APARNA AGUILAR 11/12/13 11:30am Office Visit APARNA AGUILAR 11/05/13 9:15am Discharged Inpatient Aida Benson [facility] 10/30/13 12:37pm Office Visit APARNA AGUILAR 10/27/13 10:45am
--- OUTSIDE RECORDS SUMMARY | 2016-11-10 06:42 | XMS REPORT | Continuity of Care Document ---
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 Name Role Phone APARNA AGUILAR MD Unavailable [phone] Insurance Providers Payer Name Policy Number Subscriber Name Relationship Wps Medicare [id number] Amee Guillen Self / Same As Patient For Life [id number] Amee Guillen Self / Same As Patient Chief Complaint and Reason for Visit Chief Complaint Medical Problem Minor Reason for Visit [id number] Weakness [id number] Pneumonia Hyperkalemia Problems Medical Problems Problem Onset Date Status [...] Every 4 hours as needed 30 Qty 12/04/13 03/04/14 Discontinued Fluticasone Propionate (Nasal) 2 [place] NA DAILY 1 Qty 05/27/13 Discontinued Levofloxacin 500 Mg PO DAILY 10 Qty 05/29/13 07/31/13 Discontinued Magnesium Oxide 400 Mg PO TWICE A DAY 180 Qty 06/30/13 Active Fluconazole 100 Mg PO WEEKLY 12 Qty 06/30/13 Active Tamsulosin Hcl 0.4 Mg PO DAILY 90 Qty 06/30/13 Active Fluticasone Propionate (Nasal) 2 [place] NA DAILY 3 Qty 06/30/13 Active Minocycline [...] Qty 02/08/14 Active Fluticasone Propionate (Nasal) 1-2 [place] NA DAILY 1 Qty 02/12/14 Active Nitroglycerin [...] PO DAILY 30 Qty 02/19/14 02/26/14 Discontinued [place]-3 Fatty Acids 1,000 Mg PO DAILY 03/06/14 Active Social History Social History Problem Response Recorded Date/Time Smoking Status Former smoker 03/06/2014 8:30pm Query Response Start Date Stop Date Smoking Status Former smoker Hospital Discharge Instructions Medication Information Medication information Medications taken today: zantac 150 mg at 0900 neurontin 600 mg at 0900 flu shot 0858 tylenol 0226 65o mg Discharge Instructions Provider Instructions Dismiss Date: Mar 07, 2014 Dismiss: Home Diet: Return to Previous Activity: As Tolerated Physician Follow-up Appt #1: Dr Aguilar [phone] F/U Appt: One Week Discharge Instructions 1. Follow up with Dr Aguilar within 1 week 2. Return to the hospital for evaluation if any concerns Signs/Symptoms -notify Doctor: Fever above 101 deg, Nausea/Vomiting, Shortness of Breath, Uncontrolled Pain Nursing Instructions Smoking Cessation Brochure given to patient: No Pain Management Brochure given: Yes Medications returned: Yes Valuables returned from Safe: N/A Assisstive Device(s) Returned: Walker Denture(s) Returned: Lower Dentures Handouts Given: [employer] Home Equipment: Walker Plan of Care Discharge Date 03/07/14 2:40pm Disposition 09 ADMITTED INPATIENT Condition at Discharge Stable Prescriptions See Medications [...] Signs Acute Vital Signs Vital Response Date/Time Temperature (Fahrenheit) 96.5 degrees F (96.0 - 99.9) 03/09/2014 11:10am Temperature Source Oral 03/09/2014 11:10am Pulse 03/09/2014 11:10am Pulse Rate (adult) 94 bpm (60 - 100) 03/09/2014 11:10am Ambulatory Vital Signs Vital Response Date/Time Height 5 ft 5 in 03/05/2014 11:20am Weight 277 lbs 03/05/2014 11:20am Blood Pressure 101/60 mm Hg 03/05/2014 11:20am Body Surface Area 2.47 m2 03/05/2014 11:20am Body Mass Index 46.1 kg/m2 03/05/2014 11:20am Results Test Source Date Result Interp. Ref. [...] January 26, 2014 2:09pm Lab Scanned Report [id number] Lactate Dehydrogenase September 28, 1998 4:10pm 152 [...] Synovial Fluid WBC September 27, 1998 12:00am 46654.0 /uL PH Target Cells August 05, 2001 [...] 05SOURCE : URINE, CLEAN CATCH Urine Specific [place] March 06, 2014 6:15pm 1.015 1.005-1.030 SOURCE: [...] Encounter Location Date/Time Registered Clinic Aida [facility] 03/09/14 11:00am Discharged Inpatient Aida Benson [facility] 03/06/14 8:25pm Office Visit APARNA AGUILAR 03/05/14 11:15am Office Visit APARNA AGUILAR 03/01/14 9:15am Office Visit APARNA AGUILAR 02/26/14 10:00am Registered Clinic Aida [facility] 02/23/14 11:35am Discharged Inpatient Aidaeleni Benson [facility] 02/16/14 8:34pm Discharged Inpatient Aidaeleni Benson [facility] 02/12/14 2:30am Departed Emergency Room Nunda Iliana Marcel[facility] 02/08/14 10:15am Office Visit APARNA AGUILAR 02/02/14 2:15pm Registered Clinic Aida [facility] 02/02/14 1:31pm Office Visit APARNA AGUILAR 01/21/14 10:00am Registered Clinic Aida [facility] 01/12/14 11:43am Office Visit APARNA AGUILAR 01/07/14 10:00am Registered Clinic Aida [facility] 12/22/13 12:49pm Office Visit APARNA AGUILAR 12/22/13 11:30am Office Visit APARNA AGUILAR 12/10/13 11:00am Registered [facility] Aida [facility] 12/01/13 3:00pm Registered Clinic Aida [facility] 12/01/13 2:25pm Discharged Inpatient Aida Benson [facility] 11/27/13 2:30am Office Visit APARNA AGUILAR 11/26/13 10:45am Office Visit APARNA R JEFF 11/12/13 11:30am Office Visit APARNA R JEFF 11/05/13 9:15am Discharged Inpatient Aida Benson [facility] 10/30/13 12:37pm Office Visit APARNA R JEFF 10/27/13 10:45am Office Visit APARNA R JEFF 10/06/13 11:15am Office Visit APARNA R JEFF 09/24/13 10:00am Office Visit APARNA R JEFF 09/08/13 10:30am Office Visit APARNA R JEFF 08/25/13 10:00am Office Visit APARNA R JEFF 08/18/13 11:00am Registered Clinic Aida Benson [facility] 08/11/13 2:45pm Office Visit APARNA R JEFF 08/11/13 2:15pm Office Visit APARNA R JEFF 08/05/13 10:45am Office Visit APARNA R JEFF 07/31/13 1:00pm Office Visit APARNA R JEFF 07/30/13 10:05am Office Visit APARNA R JEFF 07/24/13 11:30am Office Visit APARNA R JEFF 07/14/13 10:30am Office Visit APARNA R JEFF 06/30/13 10:30am Registered Clinic Aida [facility] 06/09/13 11:37am Office Visit APARNA R JEFF 06/09/13 11:30am Registered Clinic Aida Benson [facility] 06/02/13 11:35am Office Visit APARNA R JEFF 06/02/13 11:15am Discharged Inpatient Aida Benson [facility] 05/28/13 7:10am Office Visit APARNA R JEFF 05/27/13 1:00pm Discharged Inpatient Aida Benson [facility] 05/25/13 9:20am Office Visit APARNA R JEFF 05/19/13 11:15am Registered Clinic Aida [facility] 05/12/13 1:36pm Office Visit APARNA R JEFF 05/12/13 1:15pm Office Visit APARNA R JEFF 05/06/13 11:15am Office Visit APARNA R JEFF 04/22/13 11:00am Office Visit APARNA R JEFF 04/09/13 10:30am Office Visit APARNA AGUILAR 03/26/13 11:00am Office Visit APARNA AGUILAR 03/12/13 10:15am
--- OUTSIDE RECORDS SUMMARY | 2016-11-10 06:42 | XMS REPORT | Continuity of Care Document ---
Author Author Aida Benson [facility] Aida Benson [facility] [place] Address Unknown Phone Unavailable Care Team Providers Care Office Technologist Name Role Phone APARNA AGUILAR MD Unavailable [phone] Insurance Providers Guarantor Amee Anderson Address [address] [place] [address] Payer [employer] Policy Number [id number] Subscriber's Name Amee Anderson Relationship 01 Self / Same As Patient Group Number [id number] Group Name [employer] Effective Date 13 Payer s Medicare Policy Number [id number] Subscriber's Name Amee Anderson Relationship 01 Self / Same As Patient Effective Date 09 Chief Complaint and Reason for Visit Chief Complaint Fall Reason for Visit Generalized weakness Dehydration Problems Active Problems Medical Problem Onset Date [...] Problems Medical Problem Onset Date Cellulitis Unknown Dehydration Unknown Generalized weakness Unknown Left foot pain [...] Tablet 06/29/15 Fluticasone Propionate (Flonase 0.05% Nasal Glasgow) 16 Gm Inha 1-2 Glasgow Nasal Daily 1 Btl 05/24/15 Furosemide (Lasix [...] 1 Tab Oral Twice A Day 20 Tablet for antibiotic. Take until gone. 06/26/16 Tamsulosin Hcl (Flomax) 0.4 Mg Cap 0.4 [...] Propionate (Nasal) (Flonase) 0.05 % Spr, 1-2 Glasgow Nasal Daily for Stuffy Nose 02/12/14 Discontinued Fluticasone Propionate (Nasal) (Flonase) 0.05 % Spr, 2 [place] Nasal Daily 10/04 Discontinued Furosemide (Lasix 80 [...] Applicable Not Applicable Smoking Status Former smoker 06/26/2016 6:16am Not Applicable Not Applicable Query Response Start Date Stop Date Smoking Status Former smoker Hospital Discharge Instructions No hospital discharge instructions. Plan of Care Discharge Date 06/26/16 8:10am Disposition 01 HOME, SELF-CARE Condition at Discharge Stable Prescriptions See Medication Section Referrals APARNA AGUILAR MD Address: [address] [place] [id number] Additional Instructions/Education 1. Followup with your doctor tomorrow. 2. Return to ER if worsening symptoms or other new concerns. 3. Recommend skipping today's doses of diuretic, drinking judicious amounts of fluids. Restart diuretics tomorrow. Functional Status No functional status results. Allergies, Adverse Reactions, Alerts Allergen Type Severity Reaction Status Last Updated Allopurinol ([id number]) Allergy Unknown Active 06/16/15 Codeine ([id number]) Adverse Reaction Unknown Active 06/16/15 Metoclopramide ([id number]) Allergy Unknown Active 06/16/15 Venlafaxine ([id number]) Allergy Unknown Active 06/16/15 Celecoxib ([id number]) Adverse Reaction Unknown Active 06/16/15 Cephalosporins ([id number]) Allergy Unknown Active 06/16/15 Immunizations Immunization Event Date Type Not Given Reason Dose Number Lot Number Learning Support Teacher Influenza Vaccine, Inactivated 03/24/12 Administered 1 [id number] Sanofi Influenza Vaccine, Inactivated 04/09/13 Administered 2 [id number] SANOFI Pneumococcal Polysaccharide Vaccine 23 07/30/05 Administered 1 Influenza, high dose, seasonal 03/17/15 Historical 1 Query Response on File Recorded Date/Time Hx Hepatitis A Vaccination No 12/08/15 3:18pm Vital Signs Acute Vital Signs Vital Response Date/Time Blood Pressure 131/64 mm Hg 06/26/2016 6:04am Blood Pressure Mean 74 mm Hg 11/27/2013 1:24pm Blood Pressure Mean 86 mm Hg 06/26/2016 6:04am Temperature (Fahrenheit) 97.9 degrees F (96.0 - 99.9) 06/26/2016 6:04am Temperature (Calculated Celsius) 36.21102 degrees C 06/26/2016 6:04am Temperature (Calculated Celsius) 36.31324 degrees C (36.4 - 37.5) 11/27/2013 1:24pm Temperature (Fahrenheit) 98.4 degrees F (96.0 - 99.9) 11/27/2013 1:24pm Temperature Source Oral 12/10/2015 12:12pm Temperature Source Oral 06/26/2016 6:04am Temp 98.4 degrees F (96.0 - 99.9) 11/27/2013 1:22pm Temperature (Calculated Celsius) 36.51551 degrees C 11/27/2013 1:22pm Pulse Pulse Rate (adult) 62 bpm (60 - 100) 12/10/2015 12:12pm Pulse Rate (adult) 115 bpm (60 - 100) 11/27/2013 1:24pm Pulse Rate: ED 81 bpm 06/26/2016 6:04am Respiratory Rate 20 breaths per minute (10 - 20) 06/26/2016 6:04am Respiratory Rate 14 bpm (10 - 20) 11/27/2013 1:24pm Height (Feet) 5 ft 06/26/2016 6:04am Height (Inches) 8.0 in. 06/26/2016 6:04am Weight (Pounds) 260.0 lbs 06/26/2016 6:04am Height 5 ft 8 in 06/26/2016 6:04am Weight 260 lb 06/26/2016 6:04am Body Mass Index 39.5 kg/m^2 06/26/2016 6:04am Ambulatory Vital Signs Vital Response Date/Time Height [...] H 0.0-100.0 11/14/2015 11:18am 1:37pm Performed at: [address] [id number] [employer]: ROAJS Whitaker MD, Phone: [phone] Bedside Glucose 120 mg/dL 70-120 12/10/2015 10:34am 12/10/2015 10:38am Notify Nurse Glycated Hemoglobin 6.0 % 4.0-6.0 12/08/2015 12:12pm 12/09/2015 3:53pm Hemoglobin A1c 6.6 % H 4.8-5.6 04/17/2016 11:35am 04/18/2016 10:06am Performed at: [address] [id number] [employer]: ROJAS Whitaker MD, Phone: [phone] Magnesium Level 2.2 mg/dL 1.6-2.3 04/17/2016 11:35am 04/18/2016 8:01am Performed at: [address] [id number] [employer]: ROJAS Whitaker MD, Phone: [phone] White Blood Count 4.1 x10E3/uL 3.4-10.8 04/17/2016 [...] 04/18/2016 6:08am Performed at: DA - [facility] [address] [address], [place], [place] [id number] [employer]: ROJAS Whitaker MD, Phone: [phone] Glucose Level 90 mg/dL 65-99 04/17/2016 11:35am [...] 0-44 04/17/2016 11:35am 7:18am Performed at: - [facility] [address] [address], [place], [place] [id number] [employer]: ROJAS Whitaker MD, Phone: [phone] EGFR IF NONAFRICN AM 72 >59 04/17/2016 11:35am 04/18/2016 7:18am Result Units: mL/min/1.73 EGFR IF AFRICN AM 83 >59 04/17/2016 11:35am 04/18/2016 7:18am Result Units: mL/min/1.73 Magnesium Level 2.0 mg/dL 1.3-2.5 05/16/2016 3:20pm 05/16/2016 3:46pm Troponin I 0.01 ng/mL 0.0-0.02 05/16/2016 3:20pm 05/16/2016 3:46pm C-Reactive Protein 10.1 mg/L H <6.0 05/16/2016 3:20pm 05/16/2016 3:46pm White Blood Count 4.4 K/uL L 5.0-10.0 06/26/2016 6:10am 06/26/2016 6: 32am Red Blood Count 3.97 M/uL L 4.60-5.40 06/26/2016 6:10am 06/26/2016 6: 32am Hemoglobin 11.7 g/dL L 14.0-18.0 06/26/2016 6:10am 06/26/2016 6:32am Hematocrit 38.6 % L 40.0-54.0 06/26/2016 6:10am 06/26/2016 6:32am Mean Corpuscular Volume 97.2 fL H 80.0-94.0 06/26/2016 6:2016 6:32am Mean Corpuscular Hemoglobin 29.5 pg 26.0-33.0 06/26/2016 6:2016 6:32am Mean Corpuscular Hemoglobin Concent 30.3 g/dL L 31.0-36.0 06/26/2016 6: 06/26/2016 6:32am Red Cell Distribution Width 13.6 % 11.5-14.5 06/26/2016 6:2016 6:32am RDW Standard Deviation 48.6 fL H 35.1-43.9 06/26/2016 6:06/26/2016 6:32am Platelet Count 131 K/uL 130-400 06/26/2016 6:06/26/2016 6:32am Mean Platelet Volume 10.0 fL 7.0-11.0 06/26/2016 6:06/26/2016 6: 32am Neutrophils (%) (Auto) 46.8 % 42.0-75.0 06/26/2016 6:06/26/2016 6: 32am Lymphocytes (%) (Auto) 26.4 % 16.0-44.0 06/26/2016 6:06/26/2016 6: 32am Monocytes (%) (Auto) 15.8 % H 2.0-9.0 06/26/2016 6:06/26/2016 6: 32am Eosinophils (%) (Auto) 9.9 % H 0-7.0 06/26/2016 6:06/26/2016 6: 32am Basophils (%) (Auto) 0.9 % 0-1 06/26/2016 6:06/26/2016 6:32am Immature Granulocyte % (Auto) 0.2 % 0-0.5 06/26/2016 6:06/26/2016 6:32am Nucleated Red Blood Cells % 0.0 /100WBC 0-0 06/26/2016 6:2016 6:32am Neutrophils # (Auto) 2.1 K/uL 1.9-8.0 06/26/2016 6:10am 06/26/2016 6: 32am Lymphocytes # (Auto) 1.2 K/uL 0.9-5.2 06/26/2016 6:10am 06/26/2016 6: 32am Monocytes # (Auto) 0.7 K/uL 0.16-1.0 06/26/2016 6:10am 06/26/2016 6: 32am Eosinophils # (Auto) 0.4 K/uL 0-0.8 06/26/2016 6:10am 06/26/2016 6: 32am Basophils # (Auto) 0.0 K/uL 0-0.2 06/26/2016 6:10am 06/26/2016 6:32am Immature Granulocyte # (Auto) 0.01 K/uL 0-0.40 06/26/2016 6:10am 2016 6:32am Nucleated Red Blood Cells # 0.00 K/uL 0.0-0.012 06/26/2016 6:10am 06/26 6:32am Urine Color YELLOW 06/26/2016 6:35am 06/26/2016 7:11am Urine Appearance CLEAR 06/26/2016 6:35am 06/26/2016 7:11am Urine Glucose (UA) NEGATIVE NEGATIVE 06/26/2016 6:35am 06/26/2016 7: 11am Urine Bilirubin NEGATIVE NEGATIVE 06/26/2016 6:35am 06/26/2016 7: 11am Urine Ketones NEGATIVE NEGATIVE 06/26/2016 6:35am 06/26/2016 7:11am Urine Specific Phillips 1.020 1.005-1.030 06/26/2016 6:35am 2016 7:11am Urine Occult Blood NEGATIVE NEGATIVE 06/26/2016 6:35am 06/26/2016 7: 11am Urine pH 6.0 4.5-8.0 06/26/2016 6:35am 06/26/2016 7:11am Urine Protein NEGATIVE NEGATIVE 06/26/2016 6:35am 06/26/2016 7:11am Urine Urobilinogen 0.2 E.U./dL 0.2-1.0 06/26/2016 6:35am 06/26/2016 7: 11am Urine Nitrate NEGATIVE NEGATIVE 06/26/2016 6:35am 06/26/2016 7:11am Urine Leukocyte Esterase NEGATIVE NEGATIVE 06/26/2016 6:35am 2016 7:11am Random Glucose 92 mg/dL 65-115 06/26/2016 6:10a06/26/2016 6:46am Blood Urea Nitrogen 27 mg/dL H 8-25 06/26/2016 6:10am 06/26/2016 6:46am Creatinine 1.50 mg/dL 0.9-1.6 06/26/2016 6:10a06/26/2016 6:46am Glomerular Filtration Rate Calc 45.50 mL/min 06/26/2016 6:10a2016 6:46am MULTIPLY RESULT BY 1.210 IF THE PATIENT IS -SERBIAN Units are mL/min/1.73 m2 > 60 Normal kidney function 30-59 Moderately decreased kidney function 15-29 Severely decreased kidney function <15 End-stage kidney failure BUN/Creatinine Ratio 18.0 06/26/2016 6:10a06/26/2016 6:46am Sodium Level 134 mEq/L 133-145 06/26/2016 6:10a06/26/2016 6:46am Potassium Level 4.5 mEq/L 3.5-5.1 06/26/2016 6:10a06/26/2016 6:46am Chloride Level 96 mEq/L L 98-116 06/26/2016 6:06/26/2016 6:46am Carbon Dioxide Level 32 mEq/L 22-34 06/26/2016 6:10a06/26/2016 6: 46am Anion Gap 10.5 6-13 06/26/2016 6:06/26/2016 6:46am Calcium Level 9.0 mg/dL 8.2-10.6 06/26/2016 6:10a06/26/2016 6:46am Total Protein 7.4 gm/dL 6.0-8.4 06/26/2016 6:10a06/26/2016 6:46am Albumin 3.6 gm/dL 3.2-5.0 06/26/2016 6:10a06/26/2016 6:46am Globulin 3.8 gm/dL H 2.0-3.0 06/26/2016 6:10a06/26/2016 6:46am Albumin/Globulin Ratio 0.9 L 1.4-2.4 06/26/2016 6:10am 06/26/2016 6: 46am Total Bilirubin 0.3 mg/dL 0.1-1.3 06/26/2016 6:10a06/26/2016 6:46am Alkaline Phosphatase 118 U/L 35-125 06/26/2016 6:10am 06/26/2016 6: 46am Aspartate Amino Transf (AST/SGOT) 26 U/L 5-40 06/26/2016 6:10a2016 6:46am Alanine Aminotransferase (ALT/SGPT) 20 U/L 5-40 06/26/2016 6:10a06/26 6:46am Lactic Acid Level 1.1 mmol/L 0.5-1.9 06/26/2016 6:10a06/26/2016 6: 46am B-Type Natriuretic Peptide 209 pg/mL H 15-100 06/26/2016 6:10am 2016 7:00am Bedside Troponin I < 0.05 ng/mL 0.00-0.05 [...] Discharge/Depart Date Attending Provider Departed Emergency Room [facility] 06/26/16 6:03am 8:10am JOBY OLEARY M.D. Departed Emergency Room [facility] 06/19/16 4:26pm 5:18pm RAISA SNYDER M.D. Office Visit [facility]ARNA AGUILAR 06/13/16 11:15am APARNA AGUILAR MD Registered Practice [facility] 06/13/16 11:15am APARNA AGUILAR MD Registered [facility] 05/21/16 10:53am APARNA AGUILAR MD Office Visit [facility] AGUILAR 05/21/16 10:30am APARNA AGUILAR MD Departed Emergency Room [facility] 05/16/16 2:39pm 6:05pm JOBY OLEARY M.D. Office Visit [facility]NA AGUILAR 04/30/16 3:30pm APARNA AGUILAR MD Departed Emergency Room [facility] 04/29/16 10:47am 11:20am AMANDA FIELDS M.D. Registered Clinic [facility] 04/17/16 1:18pm APARNA AGUILAR MD Office Visit [facility] 04/17/16 11:15am APARNA AGUILAR MD Office Visit [facility] 03/20/16 11:30am APARNA AGUILAR MD Office Visit [facility] 03/06/16 11:30am APARNA AGUILAR MD Registered Clinic Aida Benson [facility] 02/20/16 11:41am APARNA AGUILAR MD Office Visit [facility] 02/20/16 11:15am APARNA AGUILAR MD Office Visit [facility] 02/09/16 10:30am HARPAL ESPOSITO PA-C Registered Practice [facility] 02/09/16 10:30am HARPAL ESPOSITO PA-C Registered Clinic Aida Benson [facility] 02/09/16 10:30am HARPAL ESPOSITO PA-C Registered Referred Aida Benson [facility] 02/03/16 12:04pm THI CHUNG M.D. Office Visit [facility] 02/03/16 11:00am THI CHUNG M.D. Registered Clinic Aida Benson [facility] 02/03/16 11:00am THI CHUNG M.D. Office Visit [facility] 01/31/16 9:45am APARNA AGUILAR MD Office Visit [facility] 01/13/16 11:15am APARNA AGUILAR MD Registered Referred Aida Benson [facility] 01/13/16 9:30am OTHER, DOCTOR Office Visit [facility] 12/21/15 11:15am APARNA AGUILAR MD Office Visit [facility] 12/15/15 10:15am APARNA AGUILAR MD Registered Clinic Aida Benson [facility] 12/15/15 10:02am APARNA AGUILAR MD Discharged Inpatient Aida Benson [facility] 12/09/15 10:28am 12/10/15 1:30pm STU TERRELL M.D. Office Visit [facility] 12/01/15 10:30am APARNA AGUILAR MD Registered Referred Aida Benson [facility] 11/17/15 10:41am APARNA AGUILAR MD Office Visit [facility] 11/17/15 9:30am APARNA AGUILAR MD Registered Clinic Aidaeleni Benson [facility] 11/14/15 11:45am APARNA AGUILAR MD Office Visit [facility] 11/14/15 11:00am APARNA AGUILAR MD Registered Referred [facility]ida B. [facility] 11/09/15 11:08am APARNA AGUILAR MD Office Visit [facility] 11/09/15 11:00am APARNA AGUILAR MD Departed Emergency Room [facility] 11/03/15 2:52pm 4:00pm AMANDA FIELDS M.D. Office Visit [facility] 10/28/15 11:30am APARNA AGUILAR MD Office Visit [facility] 10/13/15 11:15am APARNA AGUILAR MD Departed Emergency Room Drayden Ramon [facility] 09/30/15 4:24pm 6:42pm SANIA PACKER DO Office Visit [facility] 09/08/15 11:00am APARNA AGUILAR MD Registered Referred [facility] 09/08/15 11:00am [facility]ILAR MD [facility] 12:00pm OTHER, DOCTOR Office Visit [facility] 08/16/15 11:15am APARNA AGUILAR MD Office Visit [facility] 07/25/15 2:00pm APARNA AGUILAR MD Registered Clinic Aida Navarro [facility] 07/06/15 1:46pm APARNA AGUILAR MD Office Visit [facility] 07/06/15 1:45pm APARNA AGUILAR MD [facility] 1:19pm 4:13pm SANIA VAUGHAN MD Office Visit [facility] 06/15/15 11:30am APARNA AGUILAR MD Office Visit [facility] 05/31/15 9:45am APARNA AGUILAR MD Discharged Inpatient (obs) Aida Benson [facility] 05/23/15 8:13am 07/08 12:14pm SANIA VAUGHAN MD Registered Referred Aida Benson [facility] 05/10/15 11:13am APARNA AGUILAR MD Office Visit [facility] 05/10/15 10:45am APARNA AGUILAR MD Office Visit [facility] 04/26/15 10:15am JEFFAPARNA SHARPE MD Office Visit [facility] 04/20/15 1:15pm APARNA AGUILAR MD Office Visit [facility] 04/06/15 10:45am APARNA AGUILAR MD Office Visit [facility] 03/24/15 10:30am APARNA AGUILAR MD Discharged Inpatient (obs) Aida Benson [facility] 03/16/15 3:50pm 5:40pm TATIANA HAWK M.D. Office Visit [facility] 03/15/15 10:45am APARNA AGUILAR MD Registered Referred Aida Benson [facility] 02/23/15 12:47pm APARNA AGUILAR MD Departed Clinic Aidaeleni Benson [facility] 02/22/15 11:13am 02/22/15 12: 02pm GIOVANI MONTANEZ MD Registered Referred Aida Benson [facility] 02/22/15 10:57am APARNA AGUILAR MD Office Visit [facility] 02/22/15 10:45am APARNA AGUILAR MD Office Visit [facility] 02/09/15 10:15am APARNA AGUILAR MD Departed Clinic Aida Benson [facility] 01/18/15 11:27am 01/18/15 2: 10pm TATIANA HAWK M.D. Office Visit [facility] 01/18/15 11:00am APARNA AGUILAR MD Discharged Inpatient (obs) Aida Benson [facility] 01/09/15 11:45am 5:55pm TATIANA HAWK M.D. Departed Emergency Room [facility] 12/30/14 11:10am 1:40pm CLARISA ALVES M.D. Office Visit [facility] 12/27/14 11:15am APARNA AGUILAR MD Office Visit [facility] 12/20/14 1:15pm APARNA AGUILAR MD Registered Referred [facility] 12/16/14 10:00am APARNA AGUILAR MD Office Visit [facility] 12/16/14 9:45am APARNA AGUILAR MD Office Visit [facility] 12/09/14 10:45am APARNA AGUILAR MD Departed Emergency Room [facility] 11/30/14 9:15am 11:05am JAMES WHITE M.D. Office Visit [facility] 11/22/14 9:45am APARNA AGUILAR MD Office Visit [facility] 11/05/14 11:30am APARNA AGUILAR MD Departed Emergency Room [facility] 11/03/14 11:29am 2:37pm NICHOLAS LOZOYA M.D. Departed Clinic [facility] 10/26/14 10:38am 10/26/14 11: 49am GIOVANI MONTANEZ MD Office Visit [facility] 10/26/14 10:00am APARNA AGUILAR MD Departed Emergency Room [facility] 10/21/14 10:14am 11:43am SANIA PACKER DO Office Visit [facility] 10/13/14 1:00pm APARNA AGUILAR MD Departed Clinic [facility] 10/12/14 10:45am 10/12/14 11: 11am [facility]Z [facility] 09/28/14 10:32am 09/28/14 12: 19pm GIOVANI MONTANEZ MD Office Visit [facility] 09/28/14 10:15am APARNA AGUILAR MD Office Visit [facility] 09/15/14 11:15am APARNA AGUILAR MD Office Visit [facility] 09/01/14 10:45am APARNA AGUILAR MD Departed Clinic [facility] 08/31/14 10:54am 08/31/14 11: 20am GIOVANI MONTANEZ MD Office Visit [facility] 08/18/14 10:45am APARNA AGUILAR MD Office Visit [facility] 08/10/14 10:30am APARNA AGUILAR MD Discharged Inpatient Aida Benson [facility] 08/04/14 4:51pm 08/07/14 5 :05pm TATIANA HAWK M.D. Registered Referred Aida Benson [facility] 08/03/14 12:03pm APARNA AGUILAR MD Office Visit [facility] 08/03/14 11:15am APARNA AGUILAR MD Departed Clinic Aidaeleni Benson [facility] 08/03/14 10:26am 08/03/14 11: 34am GIOVANI MONTANEZ MD Office Visit [facility] 07/22/14 10:45am APARNA AGUILAR MD Discharged Inpatient Aidaeleni Benson [facility] 07/09/14 11:21am 07/12/14 2:45pm TATIANA HAWK M.D. Registered Referred Aida Benson [facility] 07/08/14 10:00am APARNA AGUILAR MD Office Visit [facility] 07/08/14 9:00am APARNA AGUILAR MD Departed Clinic Aida Benson [facility] 07/06/14 10:21am 07/06/14 11: 19am GIOVANI MONTANEZ MD Office Visit APARNA Burks [facility] 07/02/14 10:30am APARNA AGUILAR MD Discharged Inpatient Aida Benson [facility] 06/15/14 1:11am 06/16/14 11:50am TATIANA HAWK M.D. Departed Clinic Aidaeleni Benson [facility] 06/14/14 11:24am 06/14/14 1: 09pm APARNA AGUILAR MD Office Visit [facility] 06/14/14 11:00am APARNA AGUILAR MD Office Visit [facility] 06/02/14 11:15am APARNA AGUILAR MD Discharged Inpatient Aida Benson [facility] 05/21/14 10:17pm 05/24/14 11:40am TATIANA HAWK M.D. Office Visit [facility] 04/26/14 8:45am APARNA AGUILAR MD Registered Referred Aida Benson [facility] 04/20/14 2:16pm APARNA AGUILAR MD Office Visit [facility] 04/20/14 1:30pm APARNA AGUILAR MD Departed Clinic Aidaeleni Benson [facility] 04/20/14 11:00am 04/20/14 11: 57am GIOVANI MONTANEZ MD Office Visit [facility] 04/14/14 11:15am APARNA AGUILAR MD Office Visit [facility] 04/01/14 10:30am APARNA AGUILAR MD Departed Clinic Aidaeleni Benson [facility] 03/23/14 10:53am 03/23/14 12: 39pm GIOVANI MONTANEZ MD Office Visit [facility] 03/18/14 10:15am APARNA AGUILAR MD Office Visit [facility] 03/11/14 11:15am APARNA AGUILAR MD Departed Clinic Aidaeleni Benson [facility] 03/09/14 11:00am 03/09/14 11: 22am GIOVANI MONTANEZ MD Discharged Inpatient (obs) Aida Benson [facility] 03/06/14 8:25pm 2:40pm TATIANA HAWK M.D. Office Visit [facility] 03/05/14 11:15am APARNA AGUILAR MD Office Visit [facility] 03/01/14 9:15am APARNA AGUILAR MD Registered Referred Aida Benson [facility] 02/26/14 10:23am APARNA AGUILAR MD Office Visit [facility] 02/26/14 10:00am APARNA AGUILAR MD Departed Clinic Aidaeleni Benson [facility] 02/23/14 11:35am 02/23/14 12: 01pm GIOVANI MONTANEZ MD Discharged Inpatient Aidaeleni Benson [facility] 02/16/14 8:34pm 02/19/14 4 :30pm TATIANA HAWK M.D. Discharged Inpatient Aida Ramon Benson [facility] 02/12/14 2:30am 02/15/14 11:00am APARNA AGUILAR MD Departed Emergency Room [facility] 02/08/14 10:15am 1:28pm CAROLINA DUMONT M.D. Office Visit APARNA AGUILAR 02/02/14 2:15pm APARNA AGUILAR MD Departed Clinic Aidaeleni Benson [facility] 02/02/14 1:31pm 02/02/14 2: 25pm GIOVANI MONTANEZ MD Office Visit [facility]NA AGUIL[facility] 01/21/14 10:00am APARNA AGUILAR MD Departed Clinic Aidaeleni Benson [facility] 01/12/14 11:43am 01/12/14 12: 38pm GIOVANI MONTANEZ MD Office Visit [facility]NA AGUILAR 01/07/14 10:00am APARNA AGUILAR MD Departed Clinic Aidaeleni Benson [facility] 12/22/13 12:49pm 12/22/13 1: 23pm GIOVANI MONTANEZ MD Office Visit [facility] 12/22/13 11:30am APARNA AGUILAR MD Office Visit [facility]NA AGUILAR 12/10/13 11:00am APARNA AGUILAR MD Registered Recurring Aida Barrientos Marcelino [facility] 12/01/13 3:00pm APARNA AGUILAR MD Departed Clinic Aidaeleni Benson [facility] 12/01/13 2:25pm 12/01/13 2: 50pm GIOVANI MONTANEZ MD Discharged Inpatient (obs) Aida Benson [facility] 11/27/13 2:30am 01/04 10:54am APARNA AGUILAR MD Office Visit [facility] 11/26/13 10:45am APARNA AGUILAR MD Office Visit [facility]NA AGUILAR 11/12/13 11:30am APARNA AGUILAR MD Registered Referred Aida Benson [facility] 05/15/14 9:28am APARNA AGUILAR MD Office Visit [facility] 11/05/13 9:15am APARNA AGUILAR MD Discharged Inpatient Aida Benson [facility] 10/30/13 12:37pm 11/01/13 10:45am APARNA AGUILAR MD Office Visit [facility]NA AGUILAR 10/27/13 10:45am APARNA AGUILAR MD Office Visit [facility]NA AGUILAR 10/06/13 11:15am APARNA AGUILAR MD Recent Diagnosis
--- NOTE | 2016-11-10 06:43 | NUR ---
DIRECTOR OF FUNDRAISING CONTACT CORONERS OFFICE AND THEY HAVE RELEASED THE BODY BACK.
--- OUTSIDE RECORDS SUMMARY | 2016-11-10 06:43 | XMS REPORT | Continuity of Care Document ---
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 Name Role Phone APARNA AGUILAR MD Unavailable [phone] Insurance Providers Payer Name Policy Number Subscriber Name Relationship [employer] [id number] Amee Guillen 01 Self / Same As Patient For Life [id number] Amee Guillen Self / Same As Patient [...] 05/27/13 08/25/13 Discontinued Fluticasone Propionate (Nasal) 2 [place] NA DAILY 1 Qty 05/27/13 Discontinued Levofloxacin 500 Mg PO DAILY 10 Qty 05/29/13 07/31/13 Discontinued Magnesium Oxide 400 Mg PO TWICE A DAY For NUTRIENT REPLACEMENT 180 Qty 06/30/13 04/07/14 Discontinued Fluconazole 100 Mg PO WEEKLY For PREVENT INFECTION 12 Qty 06/30/1303/07 Discontinued Tamsulosin Hcl 0.4 Mg PO DAILY For DYSUREA 90 Qty 06/30/13 Active Fluticasone Propionate (Nasal) 2 [place] NA DAILY For CONGESTION 3 Qty Active [...] Qty 02/08/14 Active Fluticasone Propionate (Nasal) 1-2 [place] NA DAILY For STUFFY NOSE 1 Qty [...] For CHF 30 Qty 02/19/14 02/26/14 Discontinued [place]-3 Fatty Acids 1,000 Mg PO DAILY 03/06/14 [...] needed For ANXIETY 60 Qty 07/02/14 Discontinued Sulfamethoxazole-Trimethoprim 1 Tab PO TWICE A DAY For cellulitis 14 Qty 05/24/14 Active Minocycline Hcl 100 Mg PO DAILY For ANTIBIOTIC 90 Qty 06/02/14 Active Fluticasone Propionate (Nasal) 1-2 [place] NA DAILY For STUFFY NOSE 1 Qty 06/02/14 Active Tramadol Hcl 1-2 Tab PO Every 6 hours as needed For BREAKTHROUGH PAIN 100 Qty 06/02/14 Active Spironolactone 100 Mg PO TWICE A DAY 60 Qty 06/02/14 Active Levofloxacin 750 Mg PO Q24H For PNA 12 Qty 06/16/14 Active Fluconazole 100 Mg PO WEEKLY For PREVENT INFECTION 12 Qty 07/02/14 Active Lorazepam 0.5 Mg PO Every 4 hours as needed For ANXIETY 60 Qty Active Albuterol/Ipratropium (Duoneb) 1 Puffs IH FOUR TIMES DAILY 1 Qty Active Social History Social History Problem [...] Vital Signs Vital Response Date/Time Blood Pressure 102/64 mm Hg Blood Pressure Mean 74 mm Hg Blood Pressure Mean 84 mm Hg Temperature (Fahrenheit) 97.8 degrees F (96.0 - 99.9) Temperature (Calculated Celsius) 36.05259 degrees C Temperature (Calculated Celsius) 36.03649 degrees C (36.4 - 37.5) Temperature (Fahrenheit) 98.4 degrees F (96.0 - 99.9) Temperature Source Oral Temperature Source Axillary Temp 98.4 degrees F (96.0 - 99.9) Temperature (Calculated Celsius) 36.97527 degrees C Pulse Pulse Rate (adult) 69 bpm (60 - 100) Pulse Rate (adult) 115 bpm (60 - 100) Pulse Rate: ED 90 bpm Respiratory Rate 18 breaths per minute (10 - 20) Respiratory Rate 14 bpm (10 - 20) Height (Feet) 5 ft Height (Inches) 6.0 in. Weight (Pounds) 270.4 lbs Ambulatory Vital Signs Vital Response Date/Time Height 5 ft 5 in 07/02/2014 10:36am Weight 278 lbs 07/02/2014 10:36am Body Surface Area 2.48 m2 07/02/2014 10:36am Body Mass Index 46.3 kg/m2 07/02/2014 10:36am Results Test Source Date Result Interp. Ref. [...] April 29, 2014 8:54am Lab Scanned Report [id number] Lactate Dehydrogenase September 28, 1998 4:10pm 152 [...] Synovial Fluid WBC September 27, 1998 12:00am 25372.0 /uL PH Target Cells August 05, 2001 [...] NONE SOURCE: URINE, CLEAN CATCH Urine Specific [place] June 15, 2014 12:35am 1.025 1.005-1.030 SOURCE: [...] Encounter Location Date/Time Registered Clinic [facility] 07/06/14 10:21am Office Visit APARNA Vitaliy JEFF 07/02/14 10:30am Discharged Inpatient [facility] 06/15/14 1:11am Registered Clinic [facility] 06/14/14 11:24am Office Visit APARNA R JEFF 06/14/14 11:00am Office Visit APARNA Vitaliy JEFF 06/02/14 11:15am Discharged Inpatient [facility] 05/21/14 10:17pm Office Visit APARNA R JEFF 04/26/14 8:45am Office Visit APARNA R JEFF 04/20/14 1:30pm Registered Clinic [facility] 04/20/14 11:00am Office Visit APARNA R JEFF 04/14/14 11:15am Office Visit APARNA R JE[facility] 04/01/14 10:30am Registered Clinic [facility] 03/23/14 10:53am Office Visit APARNA Burks [facility] 03/18/14 10:15am Office Visit APARNA R [facility] 03/11/14 11:15am Registered Clinic [facility] 03/09/14 11:00am Discharged Inpatient [facility] 03/06/14 8:25pm Office Visit APARNA R JEFF 03/05/14 11:15am Office Visit APARNA R [facility] 03/01/14 9:15am Office Visit APARNA Vitaliy JEFF 02/26/14 10:00am Registered Clinic [facility] 02/23/14 11:35am Discharged Inpatient [facility] 02/16/14 8:34pm Discharged Inpatient [facility] 02/12/14 2:30am Departed Emergency Room [facility] 02/08/14 10:15am Office Visit APARNA R JEFF 02/02/14 2:15pm Registered Clinic [facility] 02/02/14 1:31pm Office Visit APARNA R JEFF 01/21/14 10:00am Registered Clinic [facility] 01/12/14 11:43am Office Visit APARNA R JEFF 01/07/14 10:00am Registered Clinic [facility] 12/22/13 12:49pm Office Visit APARNA R JEFF 12/22/13 11:30am Office Visit APARNA R JE[facility] 12/10/13 11:00am Registered Recurring [facility] 12/01/13 3:00pm Registered Clinic [facility] 12/01/13 2:25pm Discharged Inpatient [facility] 11/27/13 2:30am Office Visit APARNA R JEFF 11/26/13 10:45am Office Visit APARNA R [facility] 11/12/13 11:30am Office Visit APARNA R [facility] 11/05/13 9:15am Discharged Inpatient [facility] 10/30/13 12:37pm Office Visit APARNA R JEFF 10/27/13 10:45am Office Visit APARNA R [facility] 10/06/13 11:15am Office Visit AP[facility]NA R [facility] 09/24/13 10:00am Office Visit APARNA R [facility] 09/08/13 10:30am Office Visit APARNA R JEFF 08/25/13 10:00am Office Visit APARNA R JEFF 08/18/13 11:00am Registered Clinic [facility] 08/11/13 2:45pm Office Visit APARNA R JEFF 08/11/13 2:15pm Office Visit APARNA R JE[facility] 08/05/13 10:45am Office Visit APARNA R [facility] 07/31/13 1:00pm Office Visit APARNA R [facility] 07/30/13 10:05am Office Visit APARNA R [facility] 07/24/13 11:30am Office Visit APARNA R [facility] 07/14/13 10:30am
--- OUTSIDE RECORDS SUMMARY | 2016-11-10 06:44 | XMS REPORT | Continuity of Care Document ---
Author Author Aida Benson 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 Name Role Phone APARNA AGUILAR MD Unavailable [phone] Insurance Providers Guarantor Amee Anderson Address [address] [place] [address] Payer For Life Policy Number [id number] Subscriber's Name Amee Anderson Relationship 01 Self / Same As Patient Group Number [id number] Group Name [employer] Effective Date 13 Payer s Medicare Policy Number [id number] Subscriber's Name Amee Anderson Relationship 01 Self / Same As Patient Effective Date 09 Advance Directives Directive Response Recorded Date/Time Patient Resuscitation Status Full Code 06/28/16 12:52am Advance Directives Yes 06/28/16 12:52am Living Will Yes 06/28/16 12:52am Health Care Power of Archivist Political History Yes 06/28/16 12:52am Chief Complaint and Reason for Visit Chief Complaint FALL APPROX 2000 TONIGHT Reason for Visit Hypoxia Problems Active Problems [...] Problems Medical Problem Onset Date Cellulitis Unknown Cellulitis of left leg Unknown [...] Tablet 06/29/15 Fluticasone Propionate (Flonase 0.05% Nasal [place]) 16 Gm Inha 1-2 [place] Nasal Daily 1 Btl 05/24/15 Furosemide (Lasix [...] Propionate (Nasal) (Flonase) 0.05 % Spr, 1-2 [place] Nasal Daily for Stuffy Nose 02/12/14 Discontinued Fluticasone Propionate (Nasal) (Flonase) 0.05 % Spr, 2 [place] Nasal Daily 10/04 Discontinued Furosemide (Lasix 80 [...] Applicable Not Applicable Smoking Status Former smoker 06/29/2016 10:24am Not Applicable Not Applicable Query Response Start Date Stop Date Smoking Status Former smoker Hospital Discharge Instructions Medication Information Medication information Medications taken today: 0400 Percocet, Oxycontin 0530 Synthroid, Ativan 0900 aspirin, Coreg, colchicine, Flonase, gabapentin, minocycline, sertraline, tamulosin, Vit D, Mag Ox, potassium chl, Pepcid, spironolactone, ibuprofen Discharge Instructions Provider Instructions Dismiss Date: Jun 29, 2016 Dismiss: Home Diet: As Tolerated Activity: As Tolerated Discharge Instructions D/C home. Follow up with PCP in 1-2 weeks. Dismiss Date: Jun 29, 2016 Dismiss: Home with Home Health Diet: As Tolerated Activity: As Tolerated Discharge Instructions D/C home. Follow up with PCP in 1-2 weeks. Nursing Instructions Physician Follow-up Appointment: Dr Aguilar [phone] Scheduled Date: 07/10/16 Scheduled Time: 11:30am Signs and Symptoms to notify your Doctor about:: Fever above 101 deg, Chest Pain , Redness, Shortness of Breath, Swelling Diet: As Tolerated Activity: As Tolerated Heart [...] returned: Yes Valuables returned from Safe: N/A Denture(s) Returned: Upper Dentures, Lower Dentures Plan(s) based on screenings Eye exam for Diabetic pt Follow-up plan: You are encouraged to obtain a Dilated Retinal eye exam Plan of Care Discharge Date 06/29/16 10:55am Disposition 01 HOME, SELF-CARE Prescriptions See Medication Section Care Plan and Goals See Discharge Instructions Section Functional Status Query Response Date Recorded Overall Activities Daily Living Ability/Staff Support Limited/One person assist June 28, 2016 12:45am Toileting Ability/Staff Support Activity did not occur June 29, 2016 12:26am Oral Care Ability/Staff Support Supervise/Setup help only June 29, 2016 9:27am Upper Body Dressing Ability/Staff Support Activity did not occur June 29, 2016 12:26am Lower Body Dressing Ability/Staff Support Activity did not occur June 29, 2016 12:26am Bed Mobility Ability (general) 2/7 Maximal Assistance June 28, 2016 1:51pm Bed Mobility Movement Direction Rolling Right June 28, 2016 1:51pm Bed Mobility Rolling/Sidelying Ability 2/7 Maximal Assistance June 28, 2016 1:51pm Bed Mobility Scooting Up & Down Ablility 2/7 Maximal Assistance June 28, 2016 1:51pm Bed Mobility Sit to Supine Ability 2/7 Maximal Assistance June 28, 2016 11:25am Bed Mobility Supine to Sit Ability 2/7 Maximal Assistance June 28, 2016 1:51pm Memory Description intermediate card tender intact Short term impaired June 29, 2016 7:00am Cognitive Skills Modified independence June 29, 2016 7:00am Making self understood Understood June 29, 2016 7:00am Indicators of depression Express unrealistic fear June 29, 2016 7:00am Allergies, Adverse Reactions, Alerts Allergen Type Severity Reaction Status Last Updated Allopurinol ([id number]) Allergy Unknown Active 06/16/15 Codeine ([id number]) Adverse Reaction Unknown Active 06/16/15 Metoclopramide ([id number]) Allergy Unknown Active 06/16/15 Venlafaxine ([id number]) Allergy Unknown Active 06/16/15 Celecoxib ([id number]) Adverse Reaction Unknown Active 06/16/15 Cephalosporins ([id number]) Allergy Unknown Active 06/16/15 Immunizations Immunization Event Date Type Not Given Reason Dose Number Lot Number Leak Detector Influenza Vaccine, Inactivated 03/24/12 Administered 1 [id number] Sanofi Influenza Vaccine, Inactivated 04/09/13 Administered 2 [id number] SANOFI Pneumococcal Polysaccharide Vaccine 23 07/30/05 Administered 1 Influenza, high dose, seasonal 03/17/15 Historical 1 Query Response on File Recorded Date/Time Hx Hepatitis A Vaccination No 06/28/16 12:25am Pneumonia Vaccine Received Yes 06/28/16 12:40am Had a Tetanus Toxoid Vaccination less than 10yrs ago Yes 06/28/16 12:41am Vital Signs Acute Vital Signs Vital Response Date/Time Blood Pressure 145/97 mm Hg 06/29/2016 7:45am Blood Pressure Mean 74 mm Hg 11/27/2013 1:24pm Blood Pressure Mean 113 mm Hg 06/29/2016 7:45am Temperature (Fahrenheit) 98.3 degrees F (96.0 - 99.9) 06/29/2016 7:45am Temperature (Calculated Celsius) 36.74179 degrees C 06/29/2016 7:45am Temperature (Calculated Celsius) 36.27941 degrees C (36.4 - 37.5) 11/27/2013 1:24pm Temperature (Fahrenheit) 98.4 degrees F (96.0 - 99.9) 11/27/2013 1:24pm Temperature Source Oral 06/29/2016 7:45am Temperature Source Oral 06/27/2016 9:40pm Temp 98.4 degrees F (96.0 - 99.9) 11/27/2013 1:22pm Temperature (Calculated Celsius) 36.12079 degrees C 11/27/2013 1:22pm Pulse Pulse Rate (adult) 84 bpm (60 - 100) 06/29/2016 7:45am Pulse Rate (adult) 115 bpm (60 - 100) 11/27/2013 1:24pm Pulse Rate: ED 93 bpm 06/27/2016 11:20pm Respiratory Rate 20 breaths per minute (10 - 20) 06/29/2016 7:45am Respiratory Rate 14 bpm (10 - 20) 11/27/2013 1:24pm Height (Feet) 5 ft 06/28/2016 12:40am Height (Inches) 6.0 in. 06/28/2016 12:40am Weight (Pounds) 281.5 lbs 06/29/2016 4:00am Height 5 ft 6 in 06/27/2016 9:40pm Weight 281.50 lb 06/29/2016 4:00am Body Mass Index 45.4 kg/m^2 06/29/2016 4:00am Ambulatory Vital Signs Vital Response Date/Time Height [...] H 0.0-100.0 11/14/2015 11:18am 1:37pm Performed at: [address] [id number] Software Applications Specialist: ROJAS Whitaker MD, Phone: [phone] Glycated Hemoglobin 6.0 % 4.0-6.0 12/08/2015 12:12pm 12/09/2015 3:53pm Hemoglobin A1c 6.6 % H 4.8-5.6 04/17/2016 11:35am 04/18/2016 10:06am Performed at: [address] [id number] Software Applications Specialist: ROJAS Whitaker MD, Phone: [phone] Magnesium Level 2.2 mg/dL 1.6-2.3 04/17/2016 11:35am 04/18/2016 8:01am Performed at: [address] [id number] Software Applications Specialist: ROJAS Whitaker MD, Phone: [phone] White Blood Count 4.1 x10E3/uL 3.4-10.8 04/17/2016 [...] 35am 04/18/2016 6:08am Performed at: - [facility] [address] [id number] Software Applications Specialist: ROJAS Whitaker MD, Phone: [phone] Glucose Level 90 mg/dL 65-99 04/17/2016 11:35am [...] 04/17/2016 11:35am 7:18am Performed at: - [facility] [address] [address], [place], [place] [id number] Software Applications Specialist: ROJAS Whitaker MD, Phone: [phone] EGFR IF NONAFRICN AM 72 >59 04/17/2016 [...] NEGATIVE 06/26/2016 6:35am 06/26/2016 7:11am Urine Specific [place] 1.020 1.005-1.030 06/26/2016 6:35am 2016 7:11am Urine Occult Blood NEGATIVE NEGATIVE 06/26/2016 6:35am 06/26/2016 7: 11am Urine pH 6.0 4.5-8.0 06/26/2016 6:35am 06/26/2016 7:11am Urine Protein NEGATIVE NEGATIVE 06/26/2016 6:35am 06/26/2016 7:11am Urine Urobilinogen 0.2 E.U./dL 0.2-1.0 06/26/2016 6:35am 06/26/2016 7: 11am Urine Nitrate NEGATIVE NEGATIVE 06/26/2016 6:35am 06/26/2016 7:11am Urine Leukocyte Esterase NEGATIVE NEGATIVE 06/26/2016 6:35am 2016 7:11am White Blood Count 3.5 K/uL L 5.0-10.0 06/29/2016 5:02am 06/29/2016 6: 15am Red Blood Count 3.75 M/uL L 4.60-5.40 06/29/2016 5:02am 06/29/2016 6: 15am Hemoglobin 11.1 g/dL L 14.0-18.0 06/29/2016 5:0206/29/2016 6:15am Hematocrit 36.6 % L 40.0-54.0 06/29/2016 5:02am 06/29/2016 6:15am Mean Corpuscular Volume 97.6 fL H 80.0-94.0 06/29/2016 5:022016 6:15am Mean Corpuscular Hemoglobin 29.6 pg 26.0-33.0 06/29/2016 5:022016 6:15am Mean Corpuscular Hemoglobin Concent 30.3 g/dL L 31.0-36.0 06/29/2016 5: 0206/29/2016 6:15am Red Cell Distribution Width 13.6 % 11.5-14.5 06/29/2016 5:2016 6:15am RDW Standard Deviation 48.4 fL H 35.1-43.9 06/29/2016 5:06/29/2016 6:15am Platelet Count 106 K/uL L 130-400 06/29/2016 5:06/29/2016 6:15am Mean Platelet Volume 10.0 fL 7.0-11.0 06/29/2016 5:06/29/2016 6: 15am Neutrophils (%) (Auto) 59.2 % 42.0-75.0 06/29/2016 5:06/29/2016 6: 15am Lymphocytes (%) (Auto) 21.7 % 16.0-44.0 06/29/2016 5:06/29/2016 6: 15am Monocytes (%) (Auto) 13.9 % H 2.0-9.0 06/29/2016 5:06/29/2016 6: 15am Eosinophils (%) (Auto) 4.3 % 0-7.0 06/29/2016 5:06/29/2016 6:15am Basophils (%) (Auto) 0.6 % 0-1 06/29/2016 5:06/29/2016 6:15am Immature Granulocyte % (Auto) 0.3 % 0-0.5 06/29/2016 5:06/29/2016 6:15am Nucleated Red Blood Cells % 0.0 /100WBC 0-0 06/29/2016 5:2016 6:15am Neutrophils # (Auto) 2.1 K/uL 1.9-8.0 06/29/2016 5:06/29/2016 6: 15am Lymphocytes # (Auto) 0.8 K/uL L 0.9-5.2 06/29/2016 5:06/29/2016 6: 15am Monocytes # (Auto) 0.5 K/uL 0.16-1.0 06/29/2016 5:06/29/2016 6: 15am Eosinophils # (Auto) 0.2 K/uL 0-0.8 06/29/2016 5:06/29/2016 6: 15am Basophils # (Auto) 0.0 K/uL 0-0.2 06/29/2016 5:02am 06/29/2016 6:15am Immature Granulocyte # (Auto) 0.01 K/uL 0-0.40 06/29/2016 5:02am 2016 6:15am Nucleated Red Blood Cells # 0.00 K/uL 0.0-0.012 06/29/2016 5:02am 06/29 6:15am Prothrombin Time 11.3 SECONDS 9.0-12.0 06/27/2016 10:30pm 06/27/2016 11 :02pm Prothromb Time International Ratio 1.04 L 2.0-3.0 THERAPEUTIC 2016 10:30pm 06/27/2016 11:02pm Activated Partial Thromboplast Time 36.5 SECONDS 24.0-37.0 06/27/2016 10 :30pm 06/27/2016 11:02pm Random Glucose 101 mg/dL 65-115 06/29/2016 5:02am 06/29/2016 6:23am Bedside Glucose 127 mg/dL H 70-120 06/29/2016 9:56am 06/29/2016 10:00am Notify Nurse Blood Urea Nitrogen 16 mg/dL 8-25 06/29/2016 5:02am 06/29/2016 6:23am Creatinine 0.63 mg/dL # L 0.9-1.6 06/29/2016 5:02am 06/29/2016 6:23am Glomerular Filtration Rate Calc 123.82 mL/min 06/29/2016 5:02am 06/29 6:23am MULTIPLY RESULT BY 1.210 IF THE PATIENT IS -BAHRAINI Units are mL/min/1.73 m2 > 60 Normal kidney function 30-59 Moderately decreased kidney function 15-29 Severely decreased kidney function <15 End-stage kidney failure BUN/Creatinine Ratio 25.4 06/29/2016 5:02am 06/29/2016 6:23am Sodium Level 138 mEq/L 133-145 06/29/2016 5:02am 06/29/2016 6:23am Potassium Level 4.4 mEq/L 3.5-5.1 06/29/2016 5:02am 06/29/2016 6:23am Chloride Level 103 mEq/L 98-116 06/29/2016 5:02am 06/29/2016 6:23am Carbon Dioxide Level 29 mEq/L 22-34 06/29/2016 5:02am 06/29/2016 6: 23am Anion Gap 10.4 6-13 06/29/2016 5:02am 06/29/2016 6:23am Calcium Level 9.0 mg/dL 8.2-10.6 06/29/2016 5:02am 06/29/2016 6:23am Total Protein 6.4 gm/dL 6.0-8.4 06/27/2016 10:30pm 06/27/2016 11:02pm Albumin 3.3 gm/dL 3.2-5.0 06/27/2016 10:30pm 06/27/2016 11:02pm Globulin 3.1 gm/dL H 2.0-3.0 06/27/2016 10:30pm 06/27/2016 11:02pm Albumin/Globulin Ratio 1.1 L 1.4-2.4 06/27/2016 10:30pm 06/27/2016 11: 02pm Total Bilirubin 0.2 mg/dL 0.1-1.3 06/27/2016 10:30pm 06/27/2016 11: 02pm Alkaline Phosphatase 110 U/L 35-125 06/27/2016 10:30pm 06/27/2016 11: 02pm Aspartate Amino Transf (AST/SGOT) 28 U/L 5-40 06/27/2016 10:30pm 2016 11:02pm Alanine Aminotransferase (ALT/SGPT) 22 U/L 5-40 06/27/2016 10:30pm 09/2016 11:02pm Troponin I 0.00 ng/mL 0.0-0.02 06/27/2016 10:30pm 06/27/2016 11:03pm Lactic Acid Level 0.8 mmol/L 0.5-1.9 06/27/2016 10:30pm 06/27/2016 11: 02pm B-Type Natriuretic Peptide 437 pg/mL H 15-100 06/27/2016 10:30pm 2016 11:19pm Bedside Troponin I < 0.05 ng/mL 0.00-0.05 [...] 9:55pm CRITICAL RESULT VERIFIED AND CALLED TO [place] [facility] S AT 2154 BY NRD. 10-15 [...] Blood No growth. 06/27/2016 11:15pm 06/28/2016 11:20am Preliminary Wound Culture Scrotum CORYNEBACTERIUM SPECIES 12/01/2013 2:30pm 2013 10:34am Final PSEUDOMONAS AERUGINOSA 12/01/2013 2:30pm 12/03/2013 10:34am Final Procedures No known history of procedures. Encounters Encounter Location Arrival/Admit Date Discharge/Depart Date Attending Provider Discharged Inpatient [facility] 06/28/16 3:52pm 06/29/16 10:55am SANIA VAUGHAN MD Departed Emergency Room [facility] 06/26/16 6:03am 8:10am JOBY OLEARY M.D. Departed Emergency Room [facility] 06/19/16 4:26pm 5:18pm RAISA SNYDER M.D. Office Visit [facility] 06/13/16 11:15am APARNA AGUILAR MD Registered Practice [facility] 06/13/16 11:15am APARNA AGUILAR MD Registered Referred [facility] 05/21/16 10:53am APARNA AGUILAR MD Office Visit [facility] 05/21/16 10:30am APARNA AGUILAR MD Departed Emergency Room [facility] 05/16/16 2:39pm 6:05pm JOBY OLEARY M.D. Office Visit [facility] 04/30/16 3:30pm APARNA AGUILAR MD Departed Emergency Room [facility] 04/29/16 10:47am 11:20am AMANDA FIELDS M.D. Registered Clinic [facility] 04/17/16 1:18pm APARNA AGUILAR MD Office Visit [facility] 04/17/16 11:15am APARNA AGUILAR MD Office Visit [facility] 03/20/16 11:30am APARNA AGUILAR MD Office Visit [facility] 03/06/16 11:30am APARNA AGUILAR MD Registered Clinic [facility] 02/20/16 11:41am APARNA AGUILAR MD Office Visit [facility] 02/20/16 11:15am APARNA AGUILAR MD Office Visit [facility] 02/09/16 10:30am HARPAL ESPOSITO PA-C Registered Practice [facility] 02/09/16 10:30am HARPAL ESPOSITO PA-C Registered Clinic [facility] 02/09/16 10:30am HARPAL ESPOSITO PA-C Registered Referred [facility] 02/03/16 12:04pm THI CHUNG M.D. Office Visit [facility] 02/03/16 11:00am THI CHUNG M.D. Registered Clinic [facility] 02/03/16 11:00am THI CHUNG M.D. Office Visit [facility] 01/31/16 9:45am APARNA AGUILAR MD Office Visit [facility] 01/13/16 11:15am APARNA AGUILAR MD Registered Referred [facility] 01/13/16 9:30am OTHER, DOCTOR Office Visit [facility] 12/21/15 11:15am APARNA AGUILAR MD Office Visit [facility] 12/15/15 10:15am APARNA AGUILAR MD Registered Clinic [facility] 12/15/15 10:02am APARNA AGUILAR MD Discharged Inpatient [facility] 12/09/15 10:28am 12/10/15 1:30pm STU TERRELL M.D. Office Visit [facility] 12/01/15 10:30am APARNA AGUILAR MD Registered Referred [facility] 11/17/15 10:41am APARNA AGUILAR MD Office Visit [facility] 11/17/15 9:30am APARNA AGUILAR MD Registered Clinic [facility] 11/14/15 11:45am APARNA GAUILAR MD Office Visit [facility] 11/14/15 11:00am APARNA AGUILAR MD Registered Referred [facility] 11/09/15 11:08am APARNA AGUILAR MD Office Visit [facility] 11/09/15 11:00am APARNA AGUILAR MD Departed Emergency Room [facility] 11/03/15 2:52pm 4:00pm AMANDA FIELDS M.D. Office Visit [facility] 10/28/15 11:30am APARNA AGUILAR MD Office Visit [facility] 10/13/15 11:15am APARNA AGUILAR MD Departed Emergency Room [facility] 09/30/15 4:24pm 6:42pm SANIA PACKER DO Office Visit [facility] 09/08/15 11:00am APARNA AGUILAR MD Registered Referred [facility] 09/08/15 11:00am APARNA AGUILAR MD Registered Referred [facility] 08/16/15 12:00pm OTHER, DOCTOR Office Visit [facility] 08/16/15 11:15am APARNA AGUILAR MD Office Visit [facility] 07/25/15 2:00pm APARNA AGUILAR MD Registered Clinic [facility] 07/06/15 1:46pm APARNA AGUILAR MD Office Visit [facility] 07/06/15 1:45pm APARNA AGUILAR MD Discharged Inpatient (obs) [facility] 06/16/15 1:19pm 4:13pm SANIA VAUGHAN MD Office Visit [facility] 06/15/15 11:30am APARNA AGUILAR MD Office Visit [facility] 05/31/15 9:45am APARNA AGUILAR MD Discharged Inpatient (obs) [facility] 05/23/15 8:13am 07/08 12:14pm SANIA VAUGHAN MD Registered Referred [facility] 05/10/15 11:13am APARNA AGUILAR MD Office Visit [facility] 05/10/15 10:45am APARNA GAUILAR MD Office Visit [facility] 04/26/15 10:15am APARNA AGUILAR MD Office Visit [facility] 04/20/15 1:15pm APARNA AGUILAR MD Office Visit [facility] 04/06/15 10:45am APARNA AGUILAR MD Office Visit [facility] 03/24/15 10:30am APARNA AGUILAR MD Discharged Inpatient (obs) [facility] 03/16/15 3:50pm 5:40pm TATIANA HAWK M.D. Office Visit [facility] 03/15/15 10:45am APARNA AGUILAR MD Registered Referred [facility] 02/23/15 12:47pm APARNA AGUILAR MD Departed Clinic [facility] 02/22/15 11:13am 02/22/15 12: 02pm GIOVANI MONTANEZ MD Registered Referred [facility] 02/22/15 10:57am APARNA AGUILAR MD Office Visit [facility] 02/22/15 10:45am APARNA AGUILAR MD Office Visit [facility] 02/09/15 10:15am APARNA AGUILAR MD Departed Clinic [facility] 01/18/15 11:27am 01/18/15 2: 10pm TATIANA HAWK M.D. Office Visit [facility] 01/18/15 11:00am APARNA AGUILAR MD Discharged Inpatient (obs) [facility] 01/09/15 11:45am 5:55pm TATIANA HAWK M.D. Departed Emergency Room [facility] 12/30/14 11:10am 1:40pm CLARISA ALVES M.D. Office Visit [facility] 12/27/14 11:15am APARNA AGUILAR MD Office Visit [facility] 12/20/14 1:15pm APARNA AGUILAR MD Registered Referred [facility] 12/16/14 10:00am APARNA AGUILAR MD Office Visit [facility] 12/16/14 9:45am APARNA AGUILAR MD Office Visit [facility] 12/09/14 10:45am APARNA AGUILAR MD [facility] 11/30/14 9:15am 11:05am JAMES WHITE M.D. Office Visit [facility] 11/22/14 9:45am APARNA AGUILAR MD Office Visit [facility] 11/05/14 11:30am APARNA AGUILAR MD Departed Emergency Room [facility] 11/03/14 11:29am 2:37pm NICHOLAS LOZOYA M.D. Departed Clinic [facility] 10/26/14 10:38am 10/26/14 11: 49am GIOVANI MONTANEZ MD Office Visit [facility] 10/26/14 10:00am APARNA AGUILAR MD Departed Emergency Room [facility] 10/21/14 10:14am 11:43am SANIA PACKER DO Office Visit [facility]iy [facility] 10/13/14 1:00pm APARNA AGUILAR MD Departed Clinic [facility] 10/12/14 10:45am 10/12/14 11: 11am GIOVANI MONTANEZ MD Departed Clinic [facility] 09/28/14 10:32am 09/28/14 12: 19pm GIOVANI MONTANEZ MD Office Visit [facility] 09/28/14 10:15am APARNA AGUILAR MD Office Visit [facility] 09/15/14 11:15am APARNA AGUILAR MD Office Visit [facility] 09/01/14 10:45am APARNA AGUILAR MD Departed Clinic [facility] 08/31/14 10:54am 08/31/14 11: 20am GIOVANI MONTANEZ MD Office Visit [facility] 08/18/14 10:45am APARNA AGUILAR MD Office Visit [facility] 08/10/14 10:30am APARNA AGUILAR MD Discharged Inpatient [facility] 08/04/14 4:51pm 08/07/14 5 :05pm TATIANA HAWK M.D. Registered Referred [facility] 08/03/14 12:03pm APARNA AGUILAR MD Office Visit [facility] 08/03/14 11:15am APARNA AGUILAR MD Departed Clinic [facility] 08/03/14 10:26am 08/03/14 11: 34am GIOVANI MONTANEZ MD Office Visit [facility] 07/22/14 10:45am APARNA GAUILAR MD Discharged Inpatient [facility] 07/09/14 11:21am 07/12/14 2:45pm TATIANA HAWK M.D. Registered Referred [facility] 07/08/14 10:00am APARNA AGUILAR MD Office Visit [facility] 07/08/14 9:00am APARNA AGUILAR MD Departed Clinic [facility] 07/06/14 10:21am 07/06/14 11: 19am GIOVANI MONTANEZ MD Office Visit [facility] 07/02/14 10:30am APARNA AGUILAR MD Discharged Inpatient [facility] 06/15/14 1:11am 06/16/14 11:50am TATIANA HAWK M.D. Departed Clinic [facility] 06/14/14 11:24am 06/14/14 1: 09pm APARNA AGUILAR MD Office Visit [facility] 06/14/14 11:00am APARNA AGUILAR MD Office Visit [facility] 06/02/14 11:15am APARNA AGUILAR MD Discharged Inpatient [facility] 05/21/14 10:17pm 05/24/14 11:40am TATIANA HAWK M.D. Office Visit [facility] 04/26/14 8:45am APARNA AGUILAR MD Registered Referred [facility] 04/20/14 2:16pm APARNA AGUILAR MD Office Visit [facility] TURCIOSS 04/20/14 1:30pm APARNA AGUILAR MD Departed Clinic [facility] 04/20/14 11:00am 04/20/14 11: 57am GIOVANI MONTANEZ MD Office Visit [facility] 04/14/14 11:15am APARNA AGUILAR MD Office Visit [facility] 04/01/14 10:30am APARNA AGUILAR MD Departed Clinic [facility] 03/23/14 10:53am 03/23/14 12: 39pm GIOVANI MONTANEZ MD Office Visit [facility] 03/18/14 10:15am APARNA AGUILAR MD Office Visit [facility] 03/11/14 11:15am APARNA AGUILAR MD Departed Clinic [facility] 03/09/14 11:00am 03/09/14 11: 22am GIOVANI MONTANEZ MD Discharged Inpatient (obs) [facility] 03/06/14 8:25pm 2:40pm TATIANA HAWK M.D. Office Visit [facility] 03/05/14 11:15am APARNA AGUILAR MD Office Visit [facility] 03/01/14 9:15am APARNA AGUILAR MD Registered Referred [facility] 02/26/14 10:23am APARNA AGUILAR MD Office Visit [facility] 02/26/14 10:00am APARNA AGUILAR MD Departed Clinic [facility] 02/23/14 11:35am 02/23/14 12: 01pm GIOVANI MONTANEZ MD Discharged Inpatient [facility] 02/16/14 8:34pm 02/19/14 4 :30pm TATIANA HAWK M.D. Discharged Inpatient [facility] 02/12/14 2:30am 02/15/14 11:00am APARNA AGUILAR MD Departed Emergency Room [facility] 02/08/14 10:15am 1:28pm CAROLINA DUMONT M.D. Office Visit [facility] 02/02/14 2:15pm APARNA AGUILAR MD Departed Clinic Aidaeleni [facility] 02/02/14 1:31pm 02/02/14 2: 25pm GIOVANI MONTANEZ MD Office Visit APARNA R JEFF 01/21/14 10:00am APARNA AGUILAR MD Departed Clinic Aidaeleni Benson [facility] 01/12/14 11:43am 01/12/14 12: 38pm GIOVANI MONTANEZ MD Office Visit APARNA AGUILAR 01/07/14 10:00am APARNA AGUILAR MD Departed Clinic Aidaeleni Benson [facility] 12/22/13 12:49pm 12/22/13 1: 23pm GIOVANI MONTANEZ MD Office Visit APARNA TURCIOSS 12/22/13 11:30am APARNA AGUILAR MD Office Visit APARNA TURCIOSS 12/10/13 11:00am APARNA AGUILAR MD Registered Recurring Aida Iliana Marcel[facility] 12/01/13 3:00pm APARNA AGUILAR MD Departed Clinic [facility] 12/01/13 2:25pm 12/01/13 2: 50pm IGOVANI MONTANEZ MD Discharged Inpatient (obs) Aida Benson [facility] 11/27/13 2:30am 01/04 10:54am APARNA AGUILAR MD Office Visit APARNA AGUILAR 11/26/13 10:45am APARNA AGUILAR MD Office Visit APARNA TURCIOSS 11/12/13 11:30am APARNA AGUILAR MD Registered Referred Aida Barrientos [facility] 11/05/13 9:28am APARNA AGUILAR MD Office Visit APARNA TURCIOSS 11/05/13 9:15am APARNA AGUILAR MD Discharged Inpatient Aida Benson [facility] 10/30/13 12:37pm 11/01/13 10:45am APARNA AGUILAR MD Office Visit APARNA AGUILAR 10/27/13 10:45am APARNA AGUILAR MD Office Visit APARNA TURCIOSS 10/06/13 11:15am APARNA AGIULAR MD Recent Diagnosis Hypoxia
--- OUTSIDE RECORDS SUMMARY | 2016-11-10 06:44 | XMS REPORT | Continuity of Care Document ---
Author Author [facility] Organization [facility] Address Unknown Phone Unavailable Care Team Providers Care Coat Tailor Name Role Phone APARNA AGUILAR MD Unavailable [phone] Insurance Providers Payer Name Policy Number Subscriber Name Relationship Wps Medicare [id number] Amee Guillen 01 Self / Same As Patient For Life [id number] Amee Guillen Self / Same As Patient Advance Directives Directive Response Recorded Date/Time Patient Resuscitation Status Full Code 02/12/14 4:56am Advance Directives Yes 02/12/14 4:56am Chief Complaint and Reason for Visit Chief Complaint . Reason for Visit Chronic congestive heart failure Diabetes mellitus Cellulitis Sepsis Problems Medical Problems Problem Onset Date Status [...] against object Unknown Active Sepsis Unknown Active Medications Medication Dose Route Sig [...] 05/27/13 08/25/13 Discontinued Fluticasone Propionate (Nasal) 2 [place] NA DAILY 1 Qty 05/27/13 Discontinued Levofloxacin 500 Mg PO DAILY 10 Qty 05/29/13 07/31/13 Discontinued Magnesium Oxide 400 Mg PO TWICE A DAY 180 Qty 06/30/13 Active Fluconazole 100 Mg PO WEEKLY 12 Qty 06/30/13 Active Tamsulosin Hcl 0.4 Mg PO DAILY 90 Qty 06/30/13 Active Fluticasone Propionate (Nasal) 2 [place] NA DAILY 3 Qty 06/30/13 Active Minocycline [...] Qty 02/08/14 Active Fluticasone Propionate (Nasal) 1-2 [place] NA DAILY 1 Qty 02/12/14 Active Nitroglycerin 0.4 Mg SL NEEDED 1 Qty 02/15/14 Active Sulfamethoxazole-Trimethoprim 1 Tab PO TWICE A DAY 20 Qty 02/15/14 Active Social History Social History Problem Response Recorded Date/Time Smoking Status Former smoker 02/15/2014 8:16am Query Response Start Date Stop Date Smoking Status Former smoker Hospital Discharge Instructions Medication Information Medication information Medications taken today: Vancomycin Percocet Ativan Oxycontin Synthroid Zantac Zoloft Aspirin Coreg Colchicine Flomax Levafloxin Motrin Discharge Instructions Nursing Instructions Signs and Symptoms to notify your Doctor about:: Fever above 101 deg, Chest Pain, Redness, Drainage, Shortness of Breath, Swelling, Gain > 3lbs in one day, Gain > 5lbs in one week Diet: Return to Previous Activity: As Tolerated Heart Failure Discharge Instructions: Avoid high sodium foods, Bring weight record to Dr, Record weight daily, Weigh same time each day, Weigh with empty bladder, Report weight gains 2-3lb Pain Management Brochure given: Yes Medications returned: Yes Valuables returned from Safe: N/A Hearing Aid(s) returned: N/A Assisstive Device(s) Returned: N/A Glasses returned: Yes Multidisciplinary Instructions Social Work Dismissal Instructions: Patient would like to be able to return home with at discharge. Plan of Care Discharge Date 02/15/14 11:00am Disposition 06 HOME HEALTH SERVICE Prescriptions See Medications Section Functional Status Query Response Date Recorded Overall Activities Daily Living Ability/Staff Support Extens/One person assist February 12, 2014 4:56am Toileting Ability/Staff Support Extens/One person assist February 15, 2014 8:40am Oral Care Ability/Staff Support Patient Refused February 15, 2014 8:40am Upper Body Dressing Ability/Staff Support Limited/One person assist February 15, 2014 8:40am Lower Body Dressing Ability/Staff Support Limited/One person assist February 15, 2014 8:40am Memory Description Short term intact halfway intact February 15, 2014 1:23pm Cognitive Skills Independent February 15, 2014 2:29am Making self understood Understood February 15, 2014 2:29am Indicators of depression Insomnia/change in sleep February 15, 2014 1:23pm Allergies, Adverse Reactions, Alerts Allergen Type Severity [...] Vaccination less than 10yrs ago Yes Historical Vital Signs Acute Vital Signs Vital Response Date/Time Blood Pressure 129/74 mm Hg 02/15/2014 10:55am Blood Pressure Mean 92 mm Hg 02/15/2014 10:55am Temperature (Fahrenheit) 98.0 degrees F (96.0 - 99.9) 02/15/2014 10:55am Temperature (Calculated Celsius) 36.08872 degrees C 02/15/2014 10:55am Temperature Source Oral 02/15/2014 10:55am Pulse 02/15/2014 10:55am Pulse Rate (adult) 80 bpm (60 - 100) 02/15/2014 10:55am Respiratory Rate 20 breaths per minute (10 - 20) 02/15/2014 10:55am Height 5 ft 6 in 02/15/2014 10:55am Weight 288 lb 02/15/2014 10:55am Body Mass Index 46.92 02/15/2014 10:55am Ambulatory Vital Signs Vital Response Date/Time Height [...] 23.0-32.0 COMMENT: 06 Alanine Aminotransferase (ALT/SGPT) February 12, 2014 2:06am 21 U/L N 5- 40 Albumin February 12, 2014 2:06am 3.6 gm/dL N 3.2-5.0 Albumin/Globulin Ratio February 12, 2014 2:06am 1.1 L 1.4-2.4 Alkaline Phosphatase February 12, 2014 2:06am 70 U/L N 35-125 Ammonia August 28, 2010 8:20pm 28 mcg/dL N 19-60 COMMENTS?NEW ADMIT SERUM AMMONIA,SERUM MAG Anion Gap February 14, 2014 6:05am 9.1 N 6-13 Anisocytosis December 08, 2012 8:20am 2+ COMMENT: 04 Arterial Blood HCO3 October 30, 2013 7:25am 36.9 mEq/L H 21-27 DONE ON O2 AT 4 LPM VIA N/C..THE RESULTS WERE CALLED TO DR. AGUILAR. Arterial Blood Total CO2 October 30, 2013 7:25am 38.8 mM/L H -27 Arterial Blood pH October 30, 2013 7:25am 7.39 N 7.35-7.45 Aspartate Amino Transf (AST/SGOT) February 12, 2014 2:06am 25 U/L N 5-40 Atypical Lymphocytes June 25, 2012 10:20pm 1.0 % N 0-2 COMMENT: 05 B-Type Natriuretic Peptide November 27, 2013 12:40am 206 pg/mL H 15-100 BUN/Creatinine Ratio February 14, 2014 6:05am 16.8 Band Neutrophils December 08, 2012 8:20am 2.0 % N 0-7 COMMENT: 04 Basophils # (Auto) February 14, 2014 6:05am Not Performed 0-0.2 Basophils (%) (Auto) February 14, 2014 6:05am Not Performed 0-1 Basophils (Manual) February 14, 2014 6:05am 0.0 % N 0-1 Bedside Blood Urea Nitrogen June 06, 2009 8:27am 44 mg/dL H 8-25 Bedside Chloride June 06, 2009 8:27am 103 mEq/L N 98-116 Bedside Creatinine June 06, 2009 8:27am 1.6 mg/dL N 0.9-1.6 Bedside Glucose February 15, 2014 9:49am 147 mg/dL H 70-120 Notify Nurse Bedside Hematocrit [...] mmHg L 89-100 Blood Urea Nitrogen February 14, 2014 6:05am 19 mg/dL N 8-25 C-Reactive Protein June 25, 2012 10:20pm 8.0 mg/L <6.0 COMMENT: 05 Calcium Level February 14, 2014 6:05am 8.8 mg/dL N 8.2-10.6 Carbon Dioxide Level February 14, 2014 6:05am 34 mEq/L N 22-34 Chloride Level February 14, 2014 6:05am 98 mEq/L N 98-116 Cholesterol Level February 20, 2002 8:12am 130 mg/dL N 120-200 Creatine Kinase MB February 19, 2012 3:45pm 1.5 ng/mL N 0.0-6.0 COMMENT: 02 Creatinine February 14, 2014 6:05am 1.13 mg/dL N 0.9-1.6 Creatinine Clearance December 21, [...] 2.3 ng/ml PH Eosinophils # (Auto) February 14, 2014 6:05am Not Performed 0-0.8 Eosinophils (%) (Auto) February 14, 2014 6:05am Not Performed 0-7.0 Eosinophils (Manual) February 14, 2014 6:05am 12.0 % H 0-7.0 Erythrocyte Sedimentation Rate May 29, 2010 1:10pm 7 mm/hr N 0-20 Folate August 06, 2000 6:50am See separate report ng/ml Free Thyroxine Index August 06, 2000 6:50am 5.10 N 3.6-14.0 Globulin February 12, 2014 2:06am 3.4 gm/dL H 2.0-3.0 Glomerular Filtration Rate Calc February 14, 2014 6:05am > 60.00 mL/min MULTIPLY RESULT BY 1.210 [...] - PT IN RR NOW Hematocrit February 14, 2014 6:05am 40.8 % N 40.0-54.0 Hemoglobin February 14, 2014 6:05am 12.6 g/dL L 14.0-18.0 Hepatitis B Surface [...] COMMENT: 04 Immature Granulocyte # (Auto) February 12, 2014 2:06am 0.02 K/uL N 0-0.40 Immature Granulocyte % (Auto) February 12, 2014 2:06am 0.3 % N 0-0.5 LDL Cholesterol February 20, 2002 8:12am 59 mg/dL N 25-160 Lab Scanned Report January 26, 2014 2:09pm Lab Scanned Report [id number] Lactate Dehydrogenase September 28, 1998 4:10pm 152 U/L N COMMENTS? CARDIAC ENZYMES NOW Lactic Acid Level February 12, 2014 11:00am 1.9 mmol/L N 0.5-2.2 Lipase February 08, 2014 11:07am 16 U/L N 8-57 Lymphocytes # (Auto) February 14, 2014 6:05am Not Performed 0.9-5.2 Lymphocytes (%) (Auto) February 14, 2014 6:05am Not Performed 16.0-44.0 Lymphocytes (Manual) February 14, 2014 6:05am 26.0 % N 21.0-51.0 Macrocytosis December 08, 2012 8:20am 2+ COMMENT: 04 Magnesium Level August 27, 2011 10:20am 1.7 mg/dL N 1.3-2.5 Mean Corpuscular Hemoglobin February 14, 2014 6:05am 30.4 pg N 26.0-33.0 Mean Corpuscular Hemoglobin Concent February 14, 2014 6:05am 30.9 g/dL L 31.0-36.0 Mean Corpuscular Volume February 14, 2014 6:05am 98.3 fL H 80.0-94.0 Mean Platelet Volume February 14, 2014 6:05am 10.0 fL N 7.0-11.0 Metamyelocytes January 22, 2008 7:03pm 2.0 % Microcytosis November 03, 2006 8:55am 1+ COMMENTS?ROOM 2 Monocytes # (Auto) February 14, 2014 6:05am Not Performed 0.16-1.0 Monocytes (%) (Auto) February 14, 2014 6:05am Not Performed 2.0-9.0 Monocytes (Manual) February 14, 2014 6:05am 16.0 % H 2.0-9.0 Myelocytes January 22, 2008 7:03pm 1.0 % Neutrophils February 14, 2014 6:05am 46.0 % N 42.0-75.0 Neutrophils # (Auto) February 14, 2014 6:05am Not Performed 1.9-8.0 Neutrophils (%) (Auto) February 14, 2014 6:05am Not Performed 42.0-75.0 Nucleated Red Blood Cells # February 14, 2014 6:05am Not Performed 0.0- 0.012 Nucleated Red Blood Cells % February 12, 2014 2:06am 0.0 /100WBC N 0-0 Ovalocytes January 22, 2006 9:55pm 1+ COMMENTS?ROOM 5 Platelet Count February 14, 2014 6:05am 116 K/uL L 130-400 Platelet Estimate February 14, 2014 6:05am Normal NORMAL Poikilocytosis January 22, 2006 9:55pm 1+ COMMENTS?ROOM 5 Polychromasia August 10, 2006 10:30pm 1+ COMMENTS?ROOM 2 Potassium Level February 14, 2014 6:05am 4.1 mEq/L N 3.5-5.1 Prealbumin May 30, 2010 [...] SECONDS N 9.0-12.0 RDW Standard Deviation February 14, 2014 6:05am 50.4 fL H 35.1-43.9 Random Glucose February 14, 2014 6:05am 111 mg/dL N 65-115 Rapid Troponin I August 28, 2010 3:40pm 0.00 ng/mL N 0.00-0.03 < 0.03 ng/mL=NORMAL0.04 - 0.50 ng/mL=CARDIAC CONDITION >0.50 ng/mL=SUGGESTS AMI Red Blood Cell Morphology August 27, 2002 7:35pm Normal Red Blood Count February 14, 2014 6:05am 4.15 M/uL L 4.60-5.40 Red Cell Distribution Width February 14, 2014 6:05am 13.8 % N 11.5-14.5 Sodium Level February 14, 2014 6:05am 137 mEq/L N 133-145 Stomatocytes December 08, [...] Synovial Fluid WBC September 27, 1998 12:00am 05997.0 /uL PH Target Cells August 05, 2001 7:20am 2+ COMMENTS? SEND TO [facility] ON ARRIVAL Thyroid Stimulating Hormone (TSH) May 29, 2010 1:10pm 10.62 uIU/ml H 0.34-5.60 Thyroxine (T4) August 06, 2000 6:50am 5.8 ug/dl N 4.7-11.5 Total Bilirubin February 12, 2014 2:06am 0.6 mg/dL N 0.1-1.3 Total Creatine Kinase February 19, 2012 3:45pm 27 U/L N 10-180 COMMENT: 02 Total Protein February 12, 2014 2:06am 7.0 gm/dL N 6.0-8.4 Toxic Granulation May [...] COMMENT: 05SOURCE: URINE, RANDOM Urine Appearance February 08, 2014 12:55pm Clear SOURCE: URINE, CLEAN CATCH Urine Bacteria May 07, 2012 12:00am None /hpf NONE COMMENT: 05SOURCE: URINE, CLEAN CATCH Urine Bilirubin February 08, 2014 12:55pm Negative NEGATIVE SOURCE: URINE, CLEAN CATCH Urine Casts December 08, 2011 11:25am None /lpf NONE COMMENT: 05SOURCE: URINE, RANDOM Urine Color February 08, 2014 12:55pm Yellow SOURCE: URINE, CLEAN CATCH Urine Creatinine December 21, 1998 3:22pm 1.8 mg/dL Urine Crystals December 08, 2011 11:25am None /hpf NONE COMMENT: 05SOURCE : URINE, RANDOM Urine Epithelial Cells May 07, 2012 12:00am Few /lpf COMMENT: 05SOURCE: URINE, CLEAN CATCH Urine Glucose (UA) February 08, 2014 12:55pm Negative NEGATIVE SOURCE: URINE, CLEAN CATCH Urine Ketones February 08, 2014 12:55pm Negative NEGATIVE SOURCE: URINE , CLEAN CATCH Urine Leukocyte Esterase February 08, 2014 12:55pm Negative NEGATIVE SOURCE: URINE, CLEAN CATCH Urine Mucus December 08, 2011 11:25am None /lpf NONE COMMENT: 05SOURCE: URINE, RANDOM Urine Nitrate February 08, 2014 12:55pm Negative NEGATIVE SOURCE: URINE , CLEAN CATCH Urine Occult Blood February 08, 2014 12:55pm Negative NEGATIVE SOURCE: URINE, CLEAN CATCH Urine Other December 08, 2011 11:25am N COMMENT: 05SOURCE: URINE, RANDOM Urine Protein February 08, 2014 12:55pm Negative NEGATIVE SOURCE: URINE , CLEAN CATCH Urine RBC May 07, 2012 12:00am None /hpf NONE COMMENT: 05SOURCE : URINE, CLEAN CATCH Urine Specific [place] February 08, 2014 12:55pm 1.015 1.005-1.030 SOURCE: URINE, CLEAN CATCH Urine Total Protein 24 Hour March 12, 2001 11:36am 98.4 mg/24hrs N 30-150 Urine Total Volume December 10, 2001 11:20am 4475 mL Urine Uric Acid 24 Hour December 21, 1998 3:22pm 1118.0 MG/24 HR H 250-750 Urine Urobilinogen February 08, 2014 12:55pm 0.2 E.U./dL 0.2-1.0 SOURCE : URINE, CLEAN CATCH Urine WBC May 07, 2012 12:00am None /hpf NONE COMMENT: 05SOURCE : URINE, CLEAN CATCH Urine WBC Clumps December 08, 2011 11:25am 0-1 /hpf NONE COMMENT: 05SOURCE: URINE, RANDOM Urine pH February 08, 2014 12:55pm 6.0 4.5-8.0 SOURCE: URINE, CLEAN CATCH VLDL [...] separate report pg/ml White Blood Count February 14, 2014 6:05am 4.8 K/uL L 5.0-10.0 Whole Blood Anion Gap June 06, 2009 8:27am 11 N 10-20 Blood Culture Blood February 12, 2014 2:33am No growth. Body Fluid Culture Synovial Fluid [...] procedures. Encounters Encounter [facility] Date[facility] Emergency Room [facility] 02/08/14 10:15am Office Visit APARNA Vitaliy JEFF 02/02/14 2:15pm Registered Clinic [facility] 02/02/14 1:31pm Office Visit APARNA TURCIOSS 01/21/14 10:00am [facility] [place] [facility] 01/12[facility]14 11:43am Office Visit APARNA TURCIOSS 01/07/14 10:00am [facility] 12[facility]22[facility]13 12:49pm Office Visit APARNA TURCIOSS 12/22/13 11:30am Office Visit APARNA TURCIOSS 12/10/13 11:00am Registered [facility] 12/01/13 3:00pm [facility] [place] [facility] 12/01/13 2:25pm [facility] [place] [facility] 11/27[facility]13 2:30am Office Visit APARNA TURCIOSS 11/26/13 10:45am Office Visit APARNA TURCIOSS 11/12/13 11:30am Office Visit APARNA TURCIOSS 11/05/13 9:15am Discharged Inpatient [facility] 10/30/13 12:37pm Office Visit APARNA R JEFF 10/27/13 10:45am Office Visit APARNA R JEFF 10/06/13 11:15am Office Visit APARNA R JEFF 09/24/13 10:00am Office Visit APARNA R JEFF 09/08/13 10:30am Office Visit APARNA R JEFF 08/25/13 10:00am Office Visit APARNA R JEFF 08/18/13 11:00am Registered Clinic [facility] 08/11/13 2:45pm Office Visit APARNA R JEFF 08/11/13 2:15pm Office Visit APARNA R JEFF 08/05/13 10:45am Office Visit APARNA R JEFF 07/31/13 1:00pm Office Visit APARNA R JEFF 07/30/13 10:05am Office Visit APARNA R JEFF 07/24/13 11:30am Office Visit APARNA R JEFF 07/14/13 10:30am Office Visit APARNA R JEFF 06/30/13 10:30am Registered Clinic Aida Benson [facility] 06/09/13 11:37am Office Visit APARNA R JEFF 06/09/13 11:30am Registered Clinic Aida Benson [facility] 06/02/13 11:35am Office Visit APARNA R JEFF 06/02/13 11:15am Discharged Inpatient Aida Benson [facility] 05/28/13 7:10am Office Visit APARNA R JEFF 05/27/13 1:00pm Discharged Inpatient Aida Benson [facility] 05/25/13 9:20am Office Visit APARNA R JEFF 05/19/13 11:15am Registered Clinic Aida Benson [facility] 05/12/13 1:36pm Office Visit APARNA R JEFF 05/12/13 1:15pm Office Visit APARNA R JEFF 05/06/13 11:15am Office Visit APARNA R JEFF 04/22/13 11:00am Office Visit APARNA R JEFF 04/09/13 10:30am Office Visit APARNA R JEFF 03/26/13 11:00am Office Visit APARNA R JEFF 03/12/13 10:15am Office Visit APARNA R JEFF 03/04/13 10:45am Office Visit APARNA AGUILAR 02/26/13 10:30am Office Visit APARNA AGUILAR 02/18/13 10:45am Recent Diagnosis Chronic congestive heart failure Diabetes mellitus Cellulitis Sepsis
--- OUTSIDE RECORDS SUMMARY | 2016-11-10 06:45 | XMS REPORT | Continuity of Care Document ---
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 Reason for Visit Benign essential hypertension Diabetes mellitus Congestive heart failure (CHF) Emphysema/COPD Hx of diabetes mellitus Weakness History of CHF (congestive heart failure) Pneumonia Hx of diabetes mellitus Hyperkalemia Hx of diabetes mellitus Problems Medical Problems Problem Onset Date Status [...] 05/27/13 08/25/13 Discontinued Fluticasone Propionate (Nasal) 2 [place] NA DAILY 1 Qty 05/27/13 Discontinued Levofloxacin 500 Mg PO DAILY 10 Qty 05/29/13 07/31/13 Discontinued Magnesium Oxide 400 Mg PO TWICE A DAY 180 Qty 06/30/13 Active Fluconazole 100 Mg PO WEEKLY 12 Qty 06/30/13 Active Tamsulosin Hcl 0.4 Mg PO DAILY 90 Qty 06/30/13 Active Fluticasone Propionate (Nasal) 2 [place] NA DAILY 3 Qty 06/30/13 Active Minocycline [...] Qty 02/08/14 Active Fluticasone Propionate (Nasal) 1-2 [place] NA DAILY 1 Qty 02/12/14 Active Nitroglycerin [...] PO DAILY 30 Qty 02/19/14 02/26/14 Discontinued [place]-3 Fatty Acids 1,000 Mg PO DAILY 03/06/14 [...] Tolerated Physician Follow-up Appt #1: Dr Aguilar [phone] F/U Appt: One Week Discharge Instructions 1. [...] Walker Denture(s) Returned: Lower Dentures Handouts Given: [employer] Home Equipment: Walker Plan of Care Discharge Date 03/07/14 2:40pm Disposition 01 HOME, SELF-CARE Prescriptions See Medications Section Functional Status Query Response Date Recorded Overall Activities Daily Living Ability/Staff Support Extens/One person assist March 06, 2014 8:30pm Toileting Ability/Staff Support Extens/One person assist March 07, 2014 7:40am Oral Care Ability/Staff Support Extens/One person assist March 07, 2014 7:40am Upper Body Dressing Ability/Staff Support Limited/One person assist March 06, 2014 11:00pm Lower Body Dressing Ability/Staff Support Limited/One person assist March 06, 2014 11:00pm Memory Description 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 March 07, 2014 2:55pm Cognitive Skills Modified independence March 07, 2014 7:40am Making self understood Understood March 07, 2014 7:40am Indicators of depression Withdraws from activity March 07, 2014 2:55pm Allergies, Adverse Reactions, Alerts Allergen Type Severity Reaction Status Last Updated Allopurinol Allergy Unknown Active 05/25/13 Celecoxib Allergy Unknown Active 05/25/13 Cephalosporin Allergy Unknown Active 05/25/13 Codeine Allergy Unknown Active 05/25/13 Metoclopramide Allergy Unknown Active 05/25/13 Venlafaxine Allergy Unknown Active 05/25/13 Immunizations Name Given Type Influenza Vaccine, Inactivated 04/09/13 Administered Hx Hepatitis A Vaccination No Historical Pneumonia Vaccine Received Y LESS THAN 5 YEARS. Historical Had a Tetanus Toxoid Vaccination less than 10yrs ago Y LESS THAN 10 YEARS. Historical Td (adult), adsorbed 02/17/14 Administered Td (adult), adsorbed 02/17/14 Administered Influenza, high dose seasonal 03/07/14 Administered Influenza, high dose seasonal 03/07/14 Administered Vital Signs Acute Vital Signs Vital Response Date/Time Blood Pressure 111/80 mm Hg 03/07/2014 12:00pm Blood Pressure Mean 90 mm Hg 03/07/2014 12:00pm Pulse 03/07/2014 12:00pm Pulse Rate (adult) 88 bpm (60 - 100) 03/07/2014 12:00pm Respiratory Rate 25 breaths per minute (10 - 20) 03/07/2014 12:00pm Height 5 ft 6 in 03/07/2014 12:00pm Weight 268 lb 03/07/2014 12:00pm Body Mass Index 43.65 03/07/2014 12:00pm Ambulatory Vital Signs Vital Response Date/Time Height [...] January 26, 2014 2:09pm Lab Scanned Report [id number] Lactate Dehydrogenase September 28, 1998 4:10pm 152 [...] Synovial Fluid WBC September 27, 1998 12:00am 01719.0 /uL PH Target Cells August 05, 2001 [...] 05SOURCE : URINE, CLEAN CATCH Urine Specific [place] March 06, 2014 6:15pm 1.015 1.005-1.030 SOURCE: [...] Encounters Encounter Location Date/Time Discharged Inpatient [facility] 03/06/14 8:25pm Office Visit APARNA AGUILAR 03/05/14 11:15am Office Visit APARNA AGUILAR 03/01/14 9:15am Office Visit APARNA AGUILAR 02/26/14 10:00am Registered Clinic [facility]ida [facility] 02/23/14 11:35am Discharged Inpatient Aidaeleni Benson [facility] 02/16/14 8:34pm Discharged Inpatient Aida Benson [facility] 02/12/14 2:30am Departed Emergency Room Aidaeleni Benson [facility] 02/08/14 10:15am Office Visit APARNA R JEFF 02/02/14 2:15pm Registered Clinic Aida Benson [facility] 02/02/14 1:31pm Office Visit APARNA R JEFF 01/21/14 10:00am Registered Clinic Aida Navarro Marcelino [facility] 01/12/14 11:43am Office Visit APARNA R JEFF 01/07/14 10:00am Registered Clinic Aida Benson [facility] 12/22/13 12:49pm Office Visit APARNA R JEFF 12/22/13 11:30am Office Visit APARNA R JEFF 12/10/13 11:00am Registered Recurring Aidaeleni Benson [facility] 12/01/13 3:00pm Registered Clinic Aida BarrientosJermain [facility] 12/01/13 2:25pm Discharged Inpatient Aida Benson [facility] 11/27/13 2:30am Office Visit APARNA R JEFF 11/26/13 10:45am Office Visit APARNA R JEFF 11/12/13 11:30am Office Visit APARNA R JEFF 11/05/13 9:15am Discharged Inpatient Aida Benson [facility] 10/30/13 12:37pm Office Visit APARNA R JEFF 10/27/13 10:45am Office Visit APARNA R JEFF 10/06/13 11:15am Office Visit APARNA R JEFF 09/24/13 10:00am Office Visit APARNA R JEFF 09/08/13 10:30am Office Visit APARNA R JEFF 08/25/13 10:00am Office Visit APARNA R JEFF 08/18/13 11:00am Registered Clinic Aida [facility] 08/11/13 2:45pm Office Visit APARNA R JEFF 08/11/13 2:15pm Office Visit APARNA R JEFF 08/05/13 10:45am Office Visit APARNA R JEFF 07/31/13 1:00pm Office Visit APARNA AGUILAR 07/30/13 10:05am Office Visit APARNA AGUILAR 07/24/13 11:30am Office Visit APARNA AGUILAR 07/14/13 10:30am Office Visit APARNA AGUILAR 06/30/13 10:30am Registered Clinic Aida Benson [facility] 06/09/13 11:37am Office Visit APARNA AGUILAR 06/09/13 11:30am Registered Clinic Aida Benson [facility] 06/02/13 11:35am Office Visit APARNA AGUILAR 06/02/13 11:15am Discharged Inpatient Aida Benson [facility] 05/28/13 7:10am Office Visit APARNA AGUILAR 05/27/13 1:00pm Discharged Inpatient Aida Benson [facility] 05/25/13 9:20am Office Visit APARNA AGUILAR 05/19/13 11:15am Registered Clinic Aida Benson [facility] 05/12/13 1:36pm Office Visit APARNA AGUILAR 05/12/13 1:15pm Office Visit APARNA AGUILAR 05/06/13 11:15am Office Visit APARNA AGUILAR 04/22/13 11:00am Office Visit APARNA AGUILAR 04/09/13 10:30am Office Visit APARNA AGUILAR 03/26/13 11:00am Office Visit APARNA AGUILAR 03/12/13 10:15am Recent Diagnosis Benign essential hypertension Diabetes mellitus Congestive heart failure (CHF) Emphysema/COPD Hx of diabetes mellitus Weakness History of CHF (congestive heart failure) Pneumonia Hx of diabetes mellitus Hyperkalemia Hx of diabetes mellitus
--- OUTSIDE RECORDS SUMMARY | 2016-11-10 06:46 | XMS REPORT | Continuity of Care Document ---
Author Author [facility] Organization [facility] Address Unknown Phone Unavailable Care Team Providers Care Provider Network Analyst Name Role Phone APARNA AGUILAR MD Unavailable [phone] Insurance Providers Payer Name Policy Number Subscriber Name Relationship Wps Medicare [id number] Amee Guillen 01 Self / Same As Patient For Life [id number] Amee Guillen Self / Same As Patient [...] 05/27/13 08/25/13 Discontinued Fluticasone Propionate (Nasal) 2 [place] NA DAILY 1 Qty 05/27/13 Discontinued Levofloxacin 500 Mg PO DAILY 10 Qty 05/29/13 07/31/13 Discontinued Magnesium Oxide 400 Mg PO TWICE A DAY 180 Qty 01/07/14 Active Fluconazole 100 Mg PO WEEKLY 12 Qty 06/30/13 Active Tamsulosin Hcl 0.4 Mg PO DAILY 90 Qty 06/30/13 Active Fluticasone Propionate (Nasal) 2 [place] NA DAILY 3 Qty 3 month supply [...] 109 bpm (60 - 100) 01/12/2014 12:18pm Ambulatory Vital Signs Vital Response Date/Time Height 5 ft 5 in 01/07/2014 10:09am Weight 279 lbs 01/07/2014 10:09am Blood Pressure 110/64 mm Hg 01/07/2014 10:09am Body Surface Area 2.48 m2 01/07/2014 10:09am Body Mass Index 46.4 kg/m2 01/07/2014 10:09am Results Test Source Date Result Interp. Ref. [...] Synovial Fluid WBC September 27, 1998 12:00am 21860.0 /uL PH Target Cells August 05, 2001 [...] 05SOURCE : URINE, CLEAN CATCH Urine Specific [place] October 30, 2013 4:48pm 1.015 1.005-1.030 HAS [...] August 25, 2013 10:32am Lab Scanned Report [id number] Bedside Troponin I November 27, 2013 1:15am [...] Encounter Location Date/Time Registered Clinic [facility] 01/12/14 11:43am Office Visit APARNA TURCIOSS 01/07/14 10:00am Registered Clinic [facility] 12/22/13 12:49pm Office Visit APARNA TURCIOSS 12/22/13 11:30am Office Visit APARNA TURCIOSS 12/10/13 11[facility] 12/01/13 3:00pm Registered Clinic [facility] 12/01/13 2:25pm Discharged Inpatient [place] [facility] 11/27/13 2:30am Office Visit APARNA TURCIOSS 11/26/13 10:45am Office Visit APARNA DELUCAHNS 11/12/13 11:30am Office Visit APARNA Burks JEFF 11/05/13 9:15am Discharged Inpatient [facility] 10/30/13 12:37pm Office Visit APARNA Burks JEFF 10/27/13 10:45am Office Visit APARNA R JEFF 10/06/13 11:15am Office Visit APARNA R JEFF 09/24/13 10:00am Office Visit APARNA R JEFF 09/08/13 10:30am Office Visit APARNA R JEFF 08/25/13 10:00am Office Visit APARNA R JEFF 08/18/13 11:00am Registered Clinic [facility] 08/11/13 2:45pm Office Visit APARNA DELUCAHNS 08/11/13 2:15pm Office Visit APARNA DELUCAHNS 08/05/13 10:45am Office Visit APARNA R JEFF 07/31/13 1:00pm Office Visit APARNA R JEFF 07/30/13 10:05am Office Visit APARNA R JEFF 07/24/13 11:30am Office Visit APARNA R JEFF 07/14/13 10:30am Office Visit APARNA R JEFF 06/30/13 10:30am Registered Clinic [facility]ida [facility] 06/09/13 11:37am Office Visit APARNA R JEFF 06/09/13 11:30am Registered Clinic Aida [facility] 06/02/13 11:35am Office Visit APARNA R JEFF 06/02/13 11:15am Discharged Inpatient Aida [facility] 05/28/13 7:10am Office Visit APARNA R JEFF 05/27/13 1:00pm Discharged Inpatient Aida [facility] 05/25/13 9:20am Office Visit APARNA R JEFF 05/19/13 11:15am Registered Clinic Aida [facility] 05/12/13 1:36pm Office Visit APARNA [...]
--- OUTSIDE RECORDS SUMMARY | 2016-11-10 06:46 | XMS REPORT | Continuity of Care Document ---
Author Author [facility] Organization [facility] Address Unknown Phone Unavailable Care Team Providers Care Whip Operator Name Role Phone APARNA AGUILAR MD Unavailable [phone] Insurance Providers Payer Name Policy Number Subscriber Name Relationship Wps Medicare [id number] Amee Guillen Self / Same As Patient For Life [id number] Amee Guillen Self / Same As Patient Chief Complaint and Reason for Visit Chief Complaint Dyspnea Reason for Visit Dyspnea Hypoxia [id number] Problems Medical Problems Problem Onset Date Status [...] Hcl 0.4 Mg PO Daily as needed 11/14/12 03/22/13 Discontinued Albuterol-Ipratropium 2 Puffs IN THREE TIMES [...] 05/27/13 08/25/13 Discontinued Fluticasone Propionate (Nasal) 2 [place] NA DAILY 1 Qty 05/27/13 Discontinued Levofloxacin 500 Mg PO DAILY 10 Qty 05/29/13 07/31/13 Discontinued Magnesium Oxide 400 Mg PO TWICE A DAY 180 Qty 06/30/13 Active Fluconazole 100 Mg PO WEEKLY 12 Qty 06/30/13 Active Tamsulosin Hcl 0.4 Mg PO DAILY 90 Qty 06/30/13 Active Fluticasone Propionate (Nasal) 2 [place] NA DAILY 3 Qty 3 month supply [...] 4 hours as needed 60 Qty 10/06/13 Active Carvedilol 3.125 Mg PO TWICE A [...] Ea INH DIRECTED 25 Qty 11/30/13 Active Social History Social History Problem Response Recorded Date/Time Smoking Status Former smoker 11/28/2013 10:09am Query Response Start Date Stop Date Smoking Status Former smoker Hospital Discharge Instructions Discharge Instructions Nursing Instructions Physician Follow-up Appointment: Dr Aguilar [phone] Call for Appointment: Yes Comment: F/U 1 week Signs and Symptoms to notify your Doctor about: Fever above 101 deg, Chest Pain, Bleeding, Nausea/Vomiting, Shortness of Breath, Uncontrolled Pain, Numbness/Tingling, Gain > 3lbs in one day, Gain > 5lbs in one week Diet: Return to Previous Activity: As Tolerated Other Dismissal Instructions: Pt can be D/C from Dr. Garcia's standpoint RX ON CHART SAME MEDS F/U WITH DR. AGUILAR Heart Failure Discharge Instructions: Read food labels, Avoid high sodium foods, Do not add salt to food, Bring weight record to Dr, Record weight daily, Weigh same time each day, Weigh with empty bladder, Report weight gains 2-3lb, Call Dr for appointment Pain Management Brochure given: Yes Plan of Care Discharge Date 11/28/13 10:54am Disposition 09 ADMITTED INPATIENT Condition at Discharge [...] Acute Vital Signs Vital Response Date/Time Pulse 12/01/2013 2:25pm Pulse Rate (adult) 100 bpm (60 - 100) 12/01/2013 2:25pm Ambulatory Vital Signs Vital Response Date/Time Height 5 ft 5 in 11/26/2013 10:39am Weight 275 lbs 11/26/2013 10:39am Blood Pressure 110/66 mm Hg 11/26/2013 10:39am Body Surface Area 2.46 m2 11/26/2013 10:39am Body Mass Index 45.8 kg/m2 11/26/2013 10:39am Results Test Source Date Result Interp. Ref. [...] Synovial Fluid WBC September 27, 1998 12:00am 77502.0 /uL PH Target Cells August 05, 2001 [...] 05SOURCE : URINE, CLEAN CATCH Urine Specific [place] October 30, 2013 4:48pm 1.015 1.005-1.030 HAS [...] 12:50am 775 ng/mL <230 Results <230 ng/mL juan a negativepredictability for DVT or PE Lab Scanned Report August 25, 2013 10:32am Lab Scanned Report [id number] Bedside Troponin I November 27, 2013 1:15am [...] Wound Culture Scrotum December 01, 2013 2:30pm Procedures No known history of procedures. Encounters Encounter Location Date/Time Registered Clinic [facility] 12/01/13 2:25pm Discharged Inpatient [facility] 11/27/13 2:30am Office Visit APARNA AGUILAR 11/26/13 10:45am Office Visit APARNA AGUILAR 11/12/13 11:30am Office Visit APARNA TURCIOSS 11/05/13 9:15am Discharged Inpatient [facility] 10/30/13 12:37pm Office Visit APARNA TURCIOSS 10/27/13 10:45am Office Visit APARNA TURCIOSS 10/06/13 11:15am Office Visit APARNA TURCIOSS 09/24/13 10:00am Office Visit APARNA TURCIOSS 09/08/13 10:30am Office Visit APARNA TURCIOSS 08/25/13 10:00am Office Visit APARNA TURCIOSS 08/18/13 11:00am Registered Clinic [facility] 08/11/13 2:45pm Office Visit APARNA R JEFF 08/11/13 2:15pm Office Visit APARNA R JEFF 08/05/13 10:45am Office Visit APARNA R JEFF 07/31/13 1:00pm Office Visit APARNA R JEFF 07/30/13 10:05am Office Visit APARNA R JEFF 07/24/13 11:30am Office Visit APARNA R JEFF 07/14/13 10:30am Office Visit APARNA R JEFF 06/30/13 10:30am Registered Clinic Aida [facility] 06/09/13 11:37am Office Visit APARNA R JEFF 06/09/13 11:30am Registered Clinic [facility]ida [facility] 06/02/13 11:35am Office Visit APARNA R JEFF 06/02/13 11:15am Discharged Inpatient Aida Benson [facility] 05/28/13 7:10am Office Visit APARNA R JEFF 05/27/13 1:00pm Discharged Inpatient Aida [facility] 05/25/13 9:20am Office Visit APARNA R JEFF 05/19/13 11:15am Registered Clinic Aida [facility] 05/12/13 1:36pm Office Visit APARNA R [...] Office Visit APARNA R JEFF 12/23/12 10:45am Office Visit APARNA AGUILAR 12/16/12 10:30am Discharged Inpatient Aida [facility] 12/08/12 10:20am Office Visit APARNA AGUILAR 12/03/12 9:00am
--- OUTSIDE RECORDS SUMMARY | 2016-11-10 06:48 | XMS REPORT | Continuity of Care Document ---
Author Author [facility] Organization [facility] Address Unknown Phone Unavailable Care Team Providers Care String Top Sealer Name Role Phone APARNA AGUILAR MD Unavailable [phone] Insurance Providers Payer Name Policy Number Subscriber Name Relationship Wps Medicare [id number] Amee Guillen 01 Self / Same As Patient For Life [id number] Amee Guillen Self / Same As Patient Advance Directives Directive Response Recorded Date/Time Patient Resuscitation Status Full Code 02/17/14 2:03am Advance Directives No 02/17/14 2:03am Living Will Yes 02/17/14 2:03am Health Care Power of Mine Safety Director Yes 02/17/14 2:03am Chief Complaint and Reason [...] 05/27/13 08/25/13 Discontinued Fluticasone Propionate (Nasal) 2 [place] NA DAILY 1 Qty 05/27/13 Discontinued Levofloxacin 500 Mg PO DAILY 10 Qty 05/29/13 07/31/13 Discontinued Magnesium Oxide 400 Mg PO TWICE A DAY 180 Qty 06/30/13 Active Fluconazole 100 Mg PO WEEKLY 12 Qty 06/30/13 Active Tamsulosin Hcl 0.4 Mg PO DAILY 90 Qty 06/30/13 Active Fluticasone Propionate (Nasal) 2 [place] NA DAILY 3 Qty 06/30/13 Active Minocycline [...] Qty 02/08/14 Active Fluticasone Propionate (Nasal) 1-2 [place] NA DAILY 1 Qty 02/12/14 Active Nitroglycerin [...] Tolerated Physician Follow-up Appt #1: Dr Aguilar [phone] F/U Appt: One Week Discharge Instructions 1. Follow up with Dr Aguilar within 1 week 2. Return to the ED for evaluation if any concerns. 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 Encounters Encounter Location Date/Time Discharged Inpatient [place] [facility] 02/16/14 8:34pm Discharged Inpatient [place] [facility] 02/12/14 2:30am Departed Emergency Room Aida Benson [facility] 02/08/14 10:15am Office Visit APARNA R JEFF 02/02/14 2:15pm Registered Clinic Aida Benson [facility] 02/02/14 1:31pm Office Visit APARNA R JEFF 01/21/14 10:00am Registered Clinic Aida [facility] 01/12/14 11:43am Office Visit APARNA R JEFF 01/07/14 10:00am Registered Clinic Aida [facility] 12/22/13 12:49pm Office Visit APARNA R JEFF 12/22/13 11:30am Office Visit APARNA R JEFF 12/10/13 11:00am Registered Recurring Aida [facility] 12/01/13 3:00pm Registered Clinic Aida [facility] 12/01/13 2:25pm Discharged Inpatient Aida Benson [facility] 11/27/13 2:30am Office Visit APARNA R JEFF 11/26/13 10:45am Office Visit APARNA R JEFF 11/12/13 11:30am Office Visit APARNA R JEFF 11/05/13 9:15am Discharged Inpatient Aida [facility] 10/30/13 12:37pm Office Visit APARNA R JEFF 10/27/13 10:45am Office Visit APARNA R JEFF 10/06/13 11:15am Office Visit APARNA R JEFF 09/24/13 10:00am Office Visit APARNA R JEFF 09/08/13 10:30am Office Visit APARNA R JEFF 08/25/13 10:00am Office Visit APARNA R JEFF 08/18/13 11:00am Registered Clinic Aida [facility] 08/11/13 2:45pm Office Visit APARNA R JEFF 08/11/13 2:15pm Office Visit APARNA R JEFF 08/05/13 10:45am Office Visit APARNA R JEFF 07/31/13 1:00pm Office Visit APARNA R JEFF 07/30/13 10:05am Office Visit APARNA R JEFF 07/24/13 11:30am Office Visit APARNA R JEFF 07/14/13 10:30am Office Visit APARNA R JEFF 06/30/13 10:30am Registered Clinic Aida [facility] 06/09/13 11:37am Office Visit APARNA AGUILAR 06/09/13 11:30am Registered Clinic [facility]ida [facility] 06/02/13 11:35am Office Visit APARNA AGUILAR 06/02/13 11:15am Discharged Inpatient Aida [facility] 05/28/13 7:10am Office Visit APARNA AGUILAR 05/27/13 1:00pm Discharged Inpatient Aida [facility] 05/25/13 9:20am Office Visit APARNA AGUILAR 05/19/13 11:15am Registered Clinic Aida [facility] 05/12/13 1:36pm Office Visit APARNA [...]
--- OUTSIDE RECORDS SUMMARY | 2016-11-10 06:49 | XMS REPORT | Continuity of Care Document ---
Author Author [facility] Organization [facility] Address Unknown Phone Unavailable Care Team Providers Care Adult Remedial Education Instructor Name Role Phone APARNA AGUILAR MD Primary Care Physician [phone] Insurance Providers Payer Name Policy Number Subscriber Name Relationship Wps Medicare [id number] Amee Guillen 01 Self / Same As Patient For Life [id number] Amee Guillen Self / Same As Patient Chief Complaint and Reason for Visit Chief Complaint Fall Reason for Visit [id number] Problems Medical Problems Problem Onset Date Status [...] 05/27/13 08/25/13 Discontinued Fluticasone Propionate (Nasal) 2 [place] NA DAILY 1 Qty 05/27/13 Discontinued Levofloxacin [...] Qty 02/08/14 Active Fluticasone Propionate (Nasal) 1-2 [place] NA DAILY For STUFFY NOSE 1 Qty [...] F (96.0 - 99.9) Temperature (Calculated Celsius) 36.47740 degrees C Temperature Source Oral Temperature Source [...] October 28, 2014 2:17pm Lab Scanned Report [id number] Lactate Dehydrogenase September 28, 1998 4:10pm 152 [...] Synovial Fluid WBC September 27, 1998 12:00am 73268.0 /uL PH Target Cells August 05, 2001 [...] NONE SOURCE: URINE, CLEAN CATCH Urine Specific [place] November 30, 2014 9:55am 1.020 1.005-1.030 SOURCE [...] Provider(s) THER/PROPH/DIAG IV INF INIT completed 06/14/14 APRANA AGUILAR MD THER/PROPH/DIAG INJ IV PUSH completed 10/21/14 SANIA PACKER DO THER/PROPH/DIAG IV INF INIT completed 11/03/14 NICHOLAS LOZOYA M.D. TX/PRO/DX INJ NEW DRUG ADDON completed 11/03/14 NICHOLAS LOZOYA M.D. TX/PRO/DX INJ NEW DRUG ADDON completed 11/03/14 NICHOLAS LOZOYA M.D. THER/PROPH/DIAG IV INF INIT completed 03/06/14 AAMNDA FIELDS M.D. THER/PROPH/DIAG IV INF ADDON completed 03/06/14 TATIANA HAWK M.D. Encounters Encounter Location Date/Time Departed Emergency Room [facility] 11/30/14 9:15am Office Visit APARNA AGUILAR 11/22/14 9:45am Office Visit APARNA AGUILAR 11/05/14 11:30am Departed Emergency Room [facility] 11/03/14 11:29am Registered Clinic [facility] 10/26/14 10:38am Office Visit APARNA AGUILAR 10/26/14 10:00am Departed Emergency Room [facility] 10/21/14 10:14am Office Visit APARNA R JEFF 10/13/14 1:00pm Registered Clinic Aida [facility] 10/12/14 10:45am Registered Clinic A[facility] 09/28/14 10:32am Office Visit APARNA R JEFF 09/28/14 10:15am Office Visit APARNA R JEFF 09/15/14 11:15am Office Visit APARNA R JEFF 09/01/14 10:45am Registered Clinic A[facility] 08/31/14 10:54am Office Visit APARNA R JEFF 08/18/14 10:45am Office Visit APARNA R JEFF 08/10/14 10:30am Discharged Inpatient Aida Benson [facility] 08/04/14 4:51pm Office Visit APARNA R JEFF 08/03/14 11:15am Registered Clinic A[facility] 08/03/14 10:26am Office Visit APARNA R JEFF 07/22/14 10:45am Discharged Inpatient Aida [facility] 07/09/14 11:21am Office Visit APARNA R JEFF 07/08/14 9:00am Registered Clinic Aida [facility] 07/06/14 10:21am Office Visit APARNA R JEFF 07/02/14 10:30am Discharged Inpatient Aida [facility] 06/15/14 1:11am Registered Clinic Aida [facility] 06/14/14 11:24am Office Visit APARNA R JEFF 06/14/14 11:00am Office Visit APARNA R JEFF 06/02/14 11:15am Discharged Inpatient Aida [facility] 05/21/14 10:17pm Office Visit APARNA R JEFF 04/26/14 8:45am Office Visit APARNA R JEFF 04/20/14 1:30pm Registered Clinic Aida [facility] 04/20/14 11:00am Office Visit APARNA R JEFF 04/14/14 11:15am Office Visit APARNA R JEFF 04/01/14 10:30am Registered Clinic A[facility] 03/23/14 10:53am Office Visit APARNA R JEFF 03/18/14 10:15am Office Visit APARNA AGUILAR 03/11/14 11:15am Registered Clinic [facility] 03/09/14 11:00am Discharged Inpatient Aida [facility] 03/06/14 8:25pm Office Visit APARNA AGUILAR 03/05/14 11:15am Office Visit APARNA AGUILAR 03/01/14 9:15am Office Visit APARNA AGUILAR 02/26/14 10:00am Registered Clinic Aida [facility] 02/23/14 11:35am Discharged Inpatient Aida [facility] 02/16/14 8:34pm Discharged Inpatient Aida [facility] 02/12/14 2:30am Departed Emergency Room Aida [facility] 02/08/14 10:15am Office Visit APARNA AGUILAR 02/02/14 2:15pm Registered Clinic Aida [facility] 02/02/14 1:31pm Office Visit APARNA AGUILAR 01/21/14 10:00am Registered Clinic A[facility] 01/12/14 11:43am Office Visit APARNA AGUILAR 01/07/14 10:00am Registered Clinic [facility] 12/22/13 12:49pm Office Visit APARNA AGUILAR 12/22/13 11:30am Office Visit APARNA AGUILAR 12/10/13 11:00am Registered Recurring [facility] 12/01/13 3:00pm Registered Clinic Aida [facility] 12/01/13 2:25pm Recent Diagnosis
--- OUTSIDE RECORDS SUMMARY | 2016-11-10 06:50 | XMS REPORT | Continuity of Care Document ---
Author Author [facility] Organization [facility] Address Unknown Phone Unavailable Care Team Providers Care Commissioner Of Officials Name Role Phone APARNA AGUILAR MD Unavailable [phone] Insurance Providers Payer Name Policy Number Subscriber Name Relationship Wps Medicare [id number] Amee Guillen 01 Self / Same As Patient For Life [id number] Amee Guillen Self / Same As Patient Advance Directives Directive Response Recorded Date/Time Patient Resuscitation Status Full Code 08/04/14 3:11pm Advance Directives Yes 08/04/14 3:11pm Living Will Yes 08/04/14 3:11pm Health Care Power of Mortar Worker Yes 08/04/14 3:11pm Chief Complaint and Reason [...] 05/27/13 08/25/13 Discontinued Fluticasone Propionate (Nasal) 2 [place] NA DAILY 1 Qty 05/27/13 Discontinued Levofloxacin [...] Qty 02/08/14 Active Fluticasone Propionate (Nasal) 1-2 [place] NA DAILY For STUFFY NOSE 1 Qty [...] Tolerated Physician Follow-up Appt #1: Dr Aguilar [phone] F/U Appt: One Week Discharge Instructions 1. [...] F (96.0 - 99.9) Temperature (Calculated Celsius) 36.81148 degrees C Temperature (Calculated Celsius) 36.96853 degrees C (36.4 - 37.5) Temperature (Fahrenheit) 98.4 degrees F (96.0 - 99.9) Temperature Source Oral Temperature Source Oral Temp 98.4 degrees F (96.0 - 99.9) Temperature (Calculated Celsius) 36.91158 degrees C Pulse Pulse Rate (adult) 72 [...] April 29, 2014 8:54am Lab Scanned Report [id number] Lactate Dehydrogenase September 28, 1998 4:10pm 152 [...] Synovial Fluid WBC September 27, 1998 12:00am 45202.0 /uL PH Target Cells August 05, 2001 [...] SOURCE: URINE, CLEAN CATCH Urine Specific [place] July 09, 2014 6:35am 1.015 1.005-1.030 SOURCE: [...] Date/Time Discharged Inpatient Aidaeleni Benson [facility] 08/04/14 4:51pm Office Visit APARNA Vitaliy AGUILAR 08/03/14 11:15am Registered Clinic Aida Benson [facility] 08/03/14 10:26am Office Visit APARNA AGUILAR 07/22/14 10:45am Discharged Inpatient Aidaeleni Benson [facility] 07/09/14 11:21am Office Visit APARNA Vitaliy AGUILAR 07/08/14 9:00am Registered Clinic Aida Benson [facility] 07/06/14 10:21am Office Visit APARNA Vitaliy JEFF 07/02/14 10:30am Discharged Inpatient Aida Benson [facility] 06/15/14 1:11am Registered Clinic Aida Benson [facility] 06/14/14 11:24am Office Visit APARNA R JEFF 06/14/14 11:00am Office Visit APARNA R JEFF 06/02/14 11:15am Discharged Inpatient Aida Benson [facility] 05/21/14 10:17pm Office Visit APARNA R JEFF 04/26/14 8:45am Office Visit APARNA R JEFF 04/20/14 1:30pm Registered Clinic Aida Benson [facility] 04/20/14 11:00am Office Visit APARNA R JEFF 04/14/14 11:15am Office Visit APARNA R JEFF 04/01/14 10:30am Registered Clinic Aida Benson [facility] 03/23/14 10:53am Office Visit APARNA R JEFF 03/18/14 10:15am Office Visit APARNA R JEFF 03/11/14 11:15am Registered Clinic Aida Benson [facility] 03/09/14 11:00am Discharged Inpatient Aida Benson [facility] 03/06/14 8:25pm Office Visit APARNA R JEFF 03/05/14 11:15am Office Visit APARNA R JEFF 03/01/14 9:15am Office Visit APARNA R JEFF 02/26/14 10:00am Registered Clinic Aida Benson [facility] 02/23/14 11:35am Discharged Inpatient Aida Benson [facility] 02/16/14 8:34pm Discharged Inpatient Aida Benson [facility] 02/12/14 2:30am Departed Emergency Room Aida Benson [facility] 02/08/14 10:15am Office Visit APARNA R JEFF 02/02/14 2:15pm Registered Clinic Aida Benson [facility] 02/02/14 1:31pm Office Visit APARNA R JEFF 01/21/14 10:00am Registered Clinic Aida Benson [facility] 01/12/14 11:43am Office Visit APARNA R JEFF 01/07/14 10:00am Registered Clinic Aida Benson [facility] 12/22/13 12:49pm Office Visit APARNA TURCIOSS 12/22/13 11:30am Office Visit APARNA TURCIOSS 12/10/13 11:00am Registered Recurring Aida Benson [facility] 12/01/13 3:00pm Registered Clinic Aida Benson [facility] 12/01/13 2:25pm Discharged Inpatient Aida Benson [facility] 11/27/13 2:30am Office Visit APARNA TURCIOSS 11/26/13 10:45am Office Visit APARNA TURCIOSS 11/12/13 11:30am Office Visit APARNA TURCIOSS 11/05/13 9:15am Discharged Inpatient Aida Benson [facility] 10/30/13 12:37pm Office Visit APARNA DELUCAHNS 10/27/13 10:45am Office Visit APARNA DELUCAHNS 10/06/13 11:15am Office Visit APARNA DELUCAHNS 09/24/13 10:00am Office Visit APARNA DELUCAHNS 09/08/13 10:30am Office Visit APARNA R JEFF 08/25/13 10:00am Office Visit APARNA DELUCAHNS 08/18/13 11:00am Registered Clinic Aida Benson [facility] 08/11/13 2:45pm Office Visit APARNA TURCIOSS 08/11/13 2:15pm Recent Diagnosis Benign essential hypertension Diabetes mellitus Congestive heart failure (CHF) Chronic pain Hypotension Hx of diabetes mellitus Cellulitis
--- OUTSIDE RECORDS SUMMARY | 2016-11-10 06:52 | XMS REPORT | Continuity of Care Document ---
Author Author [facility] Organization [facility] Address Unknown Phone Unavailable Care Team Providers Care Ssrs Report Developer Name Role Phone APARNA AGUILAR MD Unavailable [phone] Insurance Providers Payer Name Policy Number Subscriber Name Relationship Wps Medicare [id number] Amee Guillen 01 Self / Same As Patient For Life [id number] Amee Guillen Self / Same As Patient [...] 05/27/13 08/25/13 Discontinued Fluticasone Propionate (Nasal) 2 [place] NA DAILY 1 Qty 05/27/13 Discontinued Levofloxacin 500 Mg PO DAILY 10 Qty 05/29/13 07/31/13 Discontinued Magnesium Oxide 400 Mg PO TWICE A DAY 180 Qty 01/07/14 Active Fluconazole 100 Mg PO WEEKLY 12 Qty 06/30/13 Active Tamsulosin Hcl 0.4 Mg PO DAILY 90 Qty 06/30/13 Active Fluticasone Propionate (Nasal) 2 [place] NA DAILY 3 Qty 3 month supply [...] January 26, 2014 2:09pm Lab Scanned Report [id number] Lactate Dehydrogenase September 28, 1998 4:10pm 152 [...] Synovial Fluid WBC September 27, 1998 12:00am 36487.0 /uL PH Target Cells August 05, 2001 [...] 05SOURCE : URINE, CLEAN CATCH Urine Specific [place] October 30, 2013 4:48pm 1.015 1.005-1.030 HAS [...] AGUILAR 02/02/14 2:15pm Registered Clinic Aida Benson [facility] 02/02/14 1:31pm Office Visit APARNA AGUILAR 01/21/14 10:00am Registered Clinic Aida Benson [facility] 01/12/14 11:43am Office Visit APARNA AGUILAR 01/07/14 10:00am Registered Clinic Aida Benson [facility] 12/22/13 12:49pm Office Visit APARNA TURCIOSS 12/22/13 11:30am Office Visit APARNA TURCIOSS 12/10/13 11:00am Registered [facility] Aida Benson [facility] 12/01/13 3:00pm Registered Clinic Aida Benson [facility] 12/01/13 2:25pm Discharged Inpatient Aida Benson [facility] 11/27/13 2:30am Office Visit APARNA TURCIOSS 11/26/13 10:45am Office Visit APARNA TURCIOSS 11/12/13 11:30am Office Visit APARNA TURCIOSS 11/05/13 9:15am Discharged Inpatient Aida Benson [facility] 10/30/13 12:37pm Office Visit APARNA TURCIOSS 10/27/13 10:45am Office Visit APARNA TURCIOSS 10/06/13 11:15am Office Visit APARNA TURCIOSS 09/24/13 10:00am Office Visit APARNA TURCIOSS 09/08/13 10:30am Office Visit APARNA R JEFF 08/25/13 10:00am Office Visit APARNA R JEFF 08/18/13 11:00am Registered Clinic Aida Benson [facility] 08/11/13 2:45pm Office Visit APARNA R JEFF 08/11/13 2:15pm Office Visit APARNA R JEFF 08/05/13 10:45am Office Visit APARNA R JEFF 07/31/13 1:00pm Office Visit APARNA R JEFF 07/30/13 10:05am Office Visit APARNA R JEFF 07/24/13 11:30am Office Visit APARNA R JEFF 07/14/13 10:30am Office Visit APARNA R JEFF 06/30/13 10:30am Registered Clinic Aida Benson [facility] 06/09/13 11:37am Office Visit APARNA R JEFF 06/09/13 11:30am Registered Clinic Aida Benson [facility] 06/02/13 11:35am Office Visit APARNA R JEFF 06/02/13 11:15am Discharged Inpatient Aida Bneson [facility] 05/28/13 7:10am Office Visit APARNA R JEFF 05/27/13 1:00pm Discharged Inpatient Aida Benson [facility] 05/25/13 9:20am Office Visit APARNA R JEFF 05/19/13 11:15am Registered Clinic Aida Benson [facility] 05/12/13 1:36pm Office Visit APARNA [...]
--- OUTSIDE RECORDS SUMMARY | 2016-11-10 06:54 | XMS REPORT | Continuity of Care Document ---
Author Author [facility] Organization [facility] Address Unknown Phone Unavailable Care Team Providers Care Fur Finisher Name Role Phone APARNA AGUILAR MD Unavailable [phone] Insurance Providers Payer Name Policy Number Subscriber Name Relationship Wps Medicare [id number] Amee Guillen 01 Self / Same As Patient For Life [id number] Amee Guillen Self / Same As Patient [...] 05/27/13 08/25/13 Discontinued Fluticasone Propionate (Nasal) 2 [place] NA DAILY 1 Qty 05/27/13 Discontinued Levofloxacin [...] Qty 02/08/14 Active Fluticasone Propionate (Nasal) 1-2 [place] NA DAILY For STUFFY NOSE 1 Qty [...] F (96.0 - 99.9) Temperature (Calculated Celsius) 36.43279 degrees C Temperature (Calculated Celsius) 36.49886 degrees C (36.4 - 37.5) Temperature (Fahrenheit) 98.4 degrees F (96.0 - 99.9) Temperature Source Oral Temperature Source Oral Temp 98.4 degrees F (96.0 - 99.9) Temperature (Calculated Celsius) 36.43016 degrees C Pulse Pulse Rate (adult) 105 [...] April 29, 2014 8:54am Lab Scanned Report [id number] Lactate Dehydrogenase September 28, 1998 4:10pm 152 [...] Synovial Fluid WBC September 27, 1998 12:00am 82446.0 /uL PH Target Cells August 05, 2001 [...] NONE SOURCE: URINE, CLEAN CATCH Urine Specific [place] July 09, 2014 6:35am 1.015 1.005-1.030 SOURCE: [...] Encounter Location Date/Time Registered Clinic Aida Benson [facility] 09/28/14 10:32am Office Visit APARNA TURCIOSS 09/28/14 10:15am Office Visit APARNA TURCIOSS 09/15/14 11:15am Office Visit APARNA TURCIOSS 09/01/14 10:45am Registered Clinic Aida Benson [facility] 08/31/14 10:54am Office Visit APARNA UTRCIOSS 08/18/14 10:45am Office Visit APARNA TURCIOSS 08/10/14 10:30am Discharged Inpatient Aidaeleni Benson [facility] 08/04/14 4:51pm Office Visit APARNA TURCIOSS 08/03/14 11:15am Registered Clinic Aidaeleni Benson [facility] 08/03/14 10:26am Office Visit APARNA TURCIOSS 07/22/14 10:45am Discharged Inpatient Aidaeleni Benson [facility] 07/09/14 11:21am Office Visit APARNA TURCIOSS 07/08/14 9:00am Registered Clinic Aida Benson [facility] 07/06/14 10:21am Office Visit APARNA TURCIOSS 07/02/14 10:30am Discharged Inpatient Aidaeleni Benson [facility] 06/15/14 1:11am Registered Clinic Aida Benson [facility] 06/14/14 11:24am Office Visit APARNA TURCIOSS 06/14/14 11:00am Office Visit APARNA TURCIOSS 06/02/14 11:15am Discharged Inpatient Aidaeleni Benson [facility] 05/21/14 10:17pm Office Visit APARNA TURCIOSS 04/26/14 8:45am Office Visit APARNA TURCIOSS 04/20/14 1:30pm Registered Clinic Aida Benson [facility] 04/20/14 11:00am Office Visit APARNA R JEFF 04/14/14 11:15am Office Visit APARNA R JEFF 04/01/14 10:30am Registered Clinic Aida Benson [facility] 03/23/14 10:53am Office Visit APARNA R JEFF 03/18/14 10:15am Office Visit APARNA R JEFF 03/11/14 11:15am Registered Clinic Aida Benson [facility] 03/09/14 11:00am Discharged Inpatient Aida Besnon [facility] 03/06/14 8:25pm Office Visit APARNA R JEFF 03/05/14 11:15am Office Visit APARNA R JEFF 03/01/14 9:15am Office Visit APARNA R JEFF 02/26/14 10:00am Registered Clinic Aida Benson [facility] 02/23/14 11:35am Discharged Inpatient Aida Benson [facility] 02/16/14 8:34pm Discharged Inpatient Aida Benson [facility] 02/12/14 2:30am Departed Emergency Room Aidaeleni Benson [facility] 02/08/14 10:15am Office Visit APARNA R JEFF 02/02/14 2:15pm Registered Clinic Aida Benson [facility] 02/02/14 1:31pm Office Visit APARNA R JEFF 01/21/14 10:00am Registered Clinic Aida Benson [facility] 01/12/14 11:43am Office Visit APARNA R JEFF 01/07/14 10:00am Registered Clinic Aida Benson [facility] 12/22/13 12:49pm Office Visit APARNA R JEFF 12/22/13 11:30am Office Visit APARNA R JEFF 12/10/13 11:00am Registered Recurring Aida Benson [facility] 12/01/13 3:00pm Registered Clinic Aida Benson [facility] 12/01/13 2:25pm Discharged Inpatient Aida Benson [facility] 11/27/13 2:30am Office Visit APARNA R JEFF 11/26/13 10:45am Office Visit APARNA R JEFF 11/12/13 11:30am Office Visit APARNA R JEFF 11/05/13 9:15am Discharged Inpatient Aida Benson [facility] 10/30/13 12:37pm Office Visit APARNA AGUILAR 10/27/13 10:45am Office Visit APARNA AGUILAR 10/06/13 11:15am
--- OUTSIDE RECORDS SUMMARY | 2016-11-10 06:55 | XMS REPORT | Continuity of Care Document ---
Author Author [facility] Organization [facility] Address Unknown Phone Unavailable Care Team Providers Care Cco & President Name Role Phone APARNA AGUILAR MD Unavailable [phone] Insurance Providers Payer Name Policy Number Subscriber Name Relationship Wps Medicare [id number] Amee Guillen 01 Self / Same As Patient For Life [id number] Amee Guillen Self / Same As Patient [...] 05/27/13 08/25/13 Discontinued Fluticasone Propionate (Nasal) 2 [place] NA DAILY 1 Qty 05/27/13 Discontinued Levofloxacin [...] Qty 02/08/14 Active Fluticasone Propionate (Nasal) 1-2 [place] NA DAILY For STUFFY NOSE 1 Qty [...] F (96.0 - 99.9) Temperature (Calculated Celsius) 36.96286 degrees C Temperature (Calculated Celsius) 36.79669 degrees C (36.4 - 37.5) Temperature (Fahrenheit) 98.4 degrees F (96.0 - 99.9) Temperature Source Oral Temperature Source Oral Temp 98.4 degrees F (96.0 - 99.9) Temperature (Calculated Celsius) 36.57268 degrees C Pulse Pulse Rate (adult) 105 [...] April 29, 2014 8:54am Lab Scanned Report [id number] Lactate Dehydrogenase September 28, 1998 4:10pm 152 [...] Synovial Fluid WBC September 27, 1998 12:00am 01950.0 /uL PH Target Cells August 05, 2001 [...] SOURCE: URINE, CLEAN CATCH Urine Specific [place] July 09, 2014 6:35am 1.015 1.005-1.030 SOURCE: [...] Encounter Location Date/Time Registered Clinic Aida Benson [facility] 08/31/14 10:54am Office Visit APARNA TURCIOSS 08/18/14 10:45am Office Visit APARNA TURCIOSS 08/10/14 10:30am Discharged Inpatient Aidaeleni Benson [facility] 08/04/14 4:51pm Office Visit APARNA TURCIOSS 08/03/14 11:15am Registered Clinic Aida Benson [facility] 08/03/14 10:26am Office Visit APARNA TURCIOSS 07/22/14 10:45am Discharged Inpatient Aidaeleni Benson [facility] 07/09/14 11:21am Office Visit APARNA TURCIOSS 07/08/14 9:00am Registered Clinic Aida Benson [facility] 07/06/14 10:21am Office Visit APARNA TURCIOSS 07/02/14 10:30am Discharged Inpatient Aidaeleni Benson [facility] 06/15/14 1:11am Registered Clinic Aida Benson [facility] 06/14/14 11:24am Office Visit APARNA TURCIOSS 06/14/14 11:00am Office Visit APARNA TURCIOSS 06/02/14 11:15am Discharged Inpatient Aidaeleni Benson [facility] 05/21/14 10:17pm Office Visit APARNA TURCIOSS 04/26/14 8:45am Office Visit APARNA TURCIOSS 04/20/14 1:30pm Registered Clinic Aida Benson [facility] 04/20/14 11:00am Office Visit APARNA TURCIOSS 04/14/14 11:15am Office Visit APARNA DELUCAHNS 04/01/14 10:30am Registered Clinic Aida Benson [facility] 03/23/14 10:53am Office Visit APARNA TURCIOSS 03/18/14 10:15am Office Visit APARNA DELUCAHNS 03/11/14 11:15am Registered Clinic Aida Benson [facility] 03/09/14 11:00am Discharged Inpatient Aida Benson [facility] 03/06/14 8:25pm Office Visit APARNA R JEFF 03/05/14 11:15am Office Visit APARNA R JEFF 03/01/14 9:15am Office Visit APARNA R JEFF 02/26/14 10:00am Registered Clinic Aida Benson [facility] 02/23/14 11:35am Discharged Inpatient Aida Benson [facility] 02/16/14 8:34pm Discharged Inpatient Aida Benson [facility] 02/12/14 2:30am Departed Emergency Room Aida Benson [facility] 02/08/14 10:15am Office Visit APARNA R JEFF 02/02/14 2:15pm Registered Clinic Aida Benson [facility] 02/02/14 1:31pm Office Visit APARNA R JEFF 01/21/14 10:00am Registered Clinic Aida Benson [facility] 01/12/14 11:43am Office Visit APARNA R JEFF 01/07/14 10:00am Registered Clinic Aida Benson [facility] 12/22/13 12:49pm Office Visit APARNA R JEFF 12/22/13 11:30am Office Visit APARNA R JEFF 12/10/13 11:00am Registered Recurring Aida Benson [facility] 12/01/13 3:00pm Registered Clinic Aida Benson [facility] 12/01/13 2:25pm Discharged Inpatient Aida Benson [facility] 11/27/13 2:30am Office Visit APARNA R JEFF 11/26/13 10:45am Office Visit APARNA R JEFF 11/12/13 11:30am Office Visit APARNA R JEFF 11/05/13 9:15am Discharged Inpatient Aida Benson [facility] 10/30/13 12:37pm Office Visit APARNA R JEFF 10/27/13 10:45am Office Visit APARNA R JEFF 10/06/13 11:15am Office Visit APARNA R JEFF 09/24/13 10:00am Office Visit APARNA R JEFF 09/08/13 10:30am
--- OUTSIDE RECORDS SUMMARY | 2016-11-10 06:55 | XMS REPORT | Continuity of Care Document ---
Author Author [facility] Organization [facility] Address Unknown Phone Unavailable Care Team Providers Care Template Worker Name Role Phone APARNA AGUILAR MD Unavailable [phone] Insurance Providers Payer Name Policy Number Subscriber Name Relationship Wps Medicare [id number] Amee Guillen Self / Same As Patient For Life [id number] Amee Guillen Self / Same As Patient Chief Complaint and Reason for Visit Chief Complaint Weakness Reason for Visit Contusion of back wall of thorax [id number] Problems Medical Problems Problem Onset Date Status [...] 05/27/13 08/25/13 Discontinued Fluticasone Propionate (Nasal) 2 [place] NA DAILY 1 Qty 05/27/13 Discontinued Levofloxacin 500 Mg PO DAILY 10 Qty 05/29/13 07/31/13 Discontinued Magnesium Oxide 400 Mg PO TWICE A DAY 180 Qty 06/30/13 Active Fluconazole 100 Mg PO WEEKLY 12 Qty 06/30/13 Active Tamsulosin Hcl 0.4 Mg PO DAILY 90 Qty 06/30/13 Active Fluticasone Propionate (Nasal) 2 [place] NA DAILY 3 Qty 06/30/13 Active Minocycline [...] Encounters Encounter Location Date/Time Departed Emergency Room [facility] 02/08/14 10:15am Office Visit APARNA AGUILAR 02/02/14 2:[facility] Office Visit APARNA R JEFF 01/21/14 10:00am Registered Clinic Aida Benson [facility] 01/12/14 11:43am Office Visit APARNA R JEFF 01/07/14 10:00am Registered Clinic Aida Benson [facility] 12/22/13 12:49pm Office Visit APARNA R JEFF 12/22/13 11:30am Office Visit APARNA R JEFF 12/10/13 11:00am Registered Recurring Aida Benson [facility] 12/01/13 3:00pm Registered Clinic Aida Benson [facility] 12/01/13 2:25pm Discharged Inpatient Aida Benson [facility] 11/27/13 2:30am Office Visit APARNA R JEFF 11/26/13 10:45am Office Visit APARNA R JEFF 11/12/13 11:30am Office Visit APARNA R JEFF 11/05/13 9:15am Discharged Inpatient Aida Benson [facility] 10/30/13 12:37pm Office Visit APARNA R JEFF 10/27/13 10:45am Office Visit APARNA R JEFF 10/06/13 11:15am Office Visit APARNA R JEFF 09/24/13 10:00am Office Visit APARNA R JEFF 09/08/13 10:30am Office Visit APARNA R JEFF 08/25/13 10:00am Office Visit APARNA R JEFF 08/18/13 11:00am Registered Clinic Aida Benson [facility] 08/11/13 2:45pm Office Visit APARNA R JEFF 08/11/13 2:15pm Office Visit APARNA R JEFF 08/05/13 10:45am Office Visit APARNA R JEFF 07/31/13 1:00pm Office Visit APARNA R JEFF 07/30/13 10:05am Office Visit APARNA R JEFF 07/24/13 11:30am Office Visit APARNA R JEFF 07/14/13 10:30am Office Visit APARNA R JEFF 06/30/13 10:30am Registered Clinic Aida Benson [facility] 06/09/13 11:37am Office Visit APARNA R JEFF 06/09/13 11:30am Registered Clinic Aida Benson [facility] 06/02/13 11:35am Office Visit APARNA AGUILAR 06/02/13 11:15am Discharged Inpatient Aida Benson [facility] 05/28/13 7:10am Office Visit APARNA AGUILAR 05/27/13 1:00pm Discharged Inpatient Aida Benson [facility] 05/25/13 9:20am Office Visit APARNA AGUILAR 05/19/13 11:15am Registered Clinic Aida Benson [facility] 05/12/13 1:36pm Office Visit APARNA [...]
--- OUTSIDE RECORDS SUMMARY | 2016-11-10 06:57 | XMS REPORT | Continuity of Care Document ---
Author Author [facility] Organization [facility] Address Unknown Phone Unavailable Care Team Providers Care Drafter Automotive Design Name Role Phone APARNA AGUILAR MD Unavailable [phone] Insurance Providers Payer Name Policy Number Subscriber Name Relationship Wps Medicare [id number] Amee Guillen 01 Self / Same As Patient For Life [id number] Amee Guillen Self / Same As Patient Advance Directives Directive Response Recorded Date/Time Patient Resuscitation Status DNR 07/09/14 9:09am Advance Directives Yes 07/09/14 9:09am Living Will Yes 07/09/14 9:09am Health Care Power of Leveler Yes 07/09/14 9:09am Chief Complaint and Reason [...] 05/27/13 08/25/13 Discontinued Fluticasone Propionate (Nasal) 2 Joanna NA DAILY 1 Qty 05/27/13 Discontinued Levofloxacin [...] Qty 02/08/14 Active Fluticasone Propionate (Nasal) 1-2 Joanna NA DAILY For STUFFY NOSE 1 Qty [...] Tolerated Physician Follow-up Appt #1: Dr Aguilar [phone] F/U Appt: One Week Discharge Instructions 1. [...] F (96.0 - 99.9) Temperature (Calculated Celsius) 37.86351 degrees C Temperature (Calculated Celsius) 36.53276 degrees C (36.4 - 37.5) Temperature (Fahrenheit) 98.4 degrees F (96.0 - 99.9) Temperature Source Oral Temperature Source Oral Temp 98.4 degrees F (96.0 - 99.9) Temperature (Calculated Celsius) 36.56252 degrees C Pulse Pulse Rate (adult) 93 [...] April 29, 2014 8:54am Lab Scanned Report [id number] Lactate Dehydrogenase September 28, 1998 4:10pm 152 [...] Synovial Fluid WBC September 27, 1998 12:00am 68525.0 /uL PH Target Cells August 05, 2001 [...] NONE SOURCE: URINE, CLEAN CATCH Urine Specific [place] July 09, 2014 6:35am 1.015 1.005-1.030 SOURCE: [...] procedures. Encounters Encounter Location Date/Time Discharged Inpatient [facility] 07/09/14 11:21am Office Visit APARNA AGUILAR 07/08/14 9:00am Registered Clinic [facility] 07/06/14 10:21am Office Visit APARNA AGUILAR 07/02/14 10:30am Discharged Inpatient [facility] 06/15/14 1:11am Registered Clinic [facility] 06/14/14 11:24am Office Visit APARNA AGUILAR 06/14/14 11:00am Office Visit APARNA AGUILAR 06/02/14 11:15am Discharged Inpatient [facility] 05/21/14 10:17pm Office Visit APARNA AGUILAR 04/26/14 8:45am Office Visit APARNA AGUILAR 04/20/14 1:30pm Registered Clinic [facility] 04/20/14 11:00am Office Visit APARNA AGUILAR 04/14/14 11:15am Office Visit APARNA R JEFF 04/01/14 10:30am Registered Clinic Aida Benson [facility] 03/23/14 10:53am Office Visit APARNA R JEFF 03/18/14 10:15am Office Visit APARNA R JEFF 03/11/14 11:15am Registered Clinic Aida Benson [facility] 03/09/14 11:00am Discharged Inpatient Aida Benson [facility] 03/06/14 8:25pm Office Visit APARNA R JEFF 03/05/14 11:15am Office Visit APARNA R JEFF 03/01/14 9:15am Office Visit APARNA R JEFF 02/26/14 10:00am Registered Clinic Aida Benson [facility] 02/23/14 11:35am Discharged Inpatient Aida Benson [facility] 02/16/14 8:34pm Discharged Inpatient Aida Benson [facility] 02/12/14 2:30am Departed Emergency Room Aida Benson [facility] 02/08/14 10:15am Office Visit APARNA R JEFF 02/02/14 2:15pm Registered Clinic Aida Benson [facility] 02/02/14 1:31pm Office Visit APANRA R JEFF 01/21/14 10:00am Registered Clinic Aida Benson [facility] 01/12/14 11:43am Office Visit APARNA R JEFF 01/07/14 10:00am Registered Clinic Aida Benson [facility] 12/22/13 12:49pm Office Visit APARNA R JEFF 12/22/13 11:30am Office Visit APARNA R JEFF 12/10/13 11:00am Registered Recurring Aida Benson [facility] 12/01/13 3:00pm Registered Clinic Aida Benson [facility] 12/01/13 2:25pm Discharged Inpatient Aida Benson [facility] 11/27/13 2:30am Office Visit APARNA R JEFF 11/26/13 10:45am Office Visit APARNA R JEFF 11/12/13 11:30am Office Visit APARNA R JEFF 11/05/13 9:15am Discharged Inpatient Aida Benson [facility] 10/30/13 12:37pm Office Visit APARNA R JEFF 10/27/13 10:45am Office Visit APARNA AGUILAR 10/06/13 11:15am Office Visit APARNA AGUILAR 09/24/13 10:00am Office Visit APARNA AGUILAR 09/08/13 10:30am Office Visit APARNA AGUILAR 08/25/13 10:00am Office Visit APARNA AGUILAR 08/18/13 11:00am Registered Clinic Aida Benson [facility] 08/11/13 2:45pm Office Visit APARNA AGUILAR 08/11/13 2:15pm Office Visit APARNA AGUILAR 08/05/13 10:45am Office Visit APARNA AGUILAR 07/31/13 1:00pm Office Visit APARNA AGUILAR 07/30/13 10:05am Office Visit APARNA AGUILAR 07/24/13 11:30am Office Visit APARNA AGUILAR 07/14/13 10:30am Recent Diagnosis Benign essential hypertension Diabetes mellitus Congestive heart failure (CHF) Cellulitis Hypoxia Hypotension
--- OUTSIDE RECORDS SUMMARY | 2016-11-10 06:57 | XMS REPORT | Continuity of Care Document ---
Author Author [facility] Organization [facility] Address Unknown Phone Unavailable Care Team Providers Care Fabrication Welder Name Role Phone APARNA AGUILAR MD Unavailable [phone] Insurance Providers Payer Name Policy Number Subscriber Name Relationship Wps Medicare [id number] Amee Guillen 01 Self / Same As Patient For Life [id number] Amee Guillen Self / Same As Patient [...] 05/27/13 08/25/13 Discontinued Fluticasone Propionate (Nasal) 2 [place] NA DAILY 1 Qty 05/27/13 Discontinued Levofloxacin [...] Qty 02/08/14 Active Fluticasone Propionate (Nasal) 1-2 [place] NA DAILY For STUFFY NOSE 1 Qty [...] F (96.0 - 99.9) Temperature (Calculated Celsius) 37.44005 degrees C Temperature (Calculated Celsius) 36.65978 degrees C (36.4 - 37.5) Temperature (Fahrenheit) 98.4 degrees F (96.0 - 99.9) Temperature Source Oral Temperature Source Oral Temp 98.4 degrees F (96.0 - 99.9) Temperature (Calculated Celsius) 36.34942 degrees C Pulse Pulse Rate (adult) 80 [...] April 29, 2014 8:54am Lab Scanned Report [id number] Lactate Dehydrogenase September 28, 1998 4:10pm 152 [...] Synovial Fluid WBC September 27, 1998 12:00am 53429.0 /uL PH Target Cells August 05, 2001 [...] NONE SOURCE: URINE, CLEAN CATCH Urine Specific [place] July 09, 2014 6:35am 1.015 1.005-1.030 SOURCE: [...] AGUILAR 08/03/14 11:15am Registered Clinic [facility]ida [facility] 08/03/14 10:26am Office Visit APARNA AGUILAR 07/22/14 10:45am Discharged Inpatient Aida [facility] 07/09/14 11:21am Office Visit APARNA Vitaliy JEFF 07/08/14 9:00am Registered Clinic Aida Benson [facility] 07/06/14 10:21am Office Visit APARNA R JEFF 07/02/14 10:30am Discharged Inpatient Aida Benson [facility] 06/15/14 1:11am Registered Clinic Aida [facility] 06/14/14 11:24am Office Visit APARNA R JEFF 06/14/14 11:00am Office Visit APARNA R JEFF 06/02/14 11:15am Discharged Inpatient Aida [facility] 05/21/14 10:17pm Office Visit APARNA R JEFF 04/26/14 8:45am Office Visit APARNA R JEFF 04/20/14 1:30pm Registered Clinic Aida [facility] 04/20/14 11:00am Office Visit APARNA Burks JEFF 04/14/14 11:15am Office Visit APARNA DELUCAHNS 04/01/14 10:30am Registered Clinic A[facility] 03/23/14 10:53am Office Visit APARNA R JEFF 03/18/14 10:15am Office Visit APARNA R JEFF 03/11/14 11:15am Registered Clinic Aida Benson [facility] 03/09/14 11:00am Discharged Inpatient Aidaeleni [facility] 03/06/14 8:25pm Office Visit APARNA R JEFF 03/05/14 11:15am Office Visit APARNA R JEFF 03/01/14 9:15am Office Visit APARNA R JEFF 02/26/14 10:00am Registered Clinic Aida [facility] 02/23/14 11:35am Discharged Inpatient Aida Benson [facility] 02/16/14 8:34pm Discharged Inpatient Aida [facility] 02/12/14 2:30am Departed Emergency Room Aida Benson [facility] 02/08/14 10:15am Office Visit APARNA R JEFF 02/02/14 2:15pm Registered Clinic Aida [facility] 02/02/14 1:31pm Office Visit APARNA Vitaliy DELUCAJEFF 01/21/14 10:00am Registered Clinic A[facility] 01/12/14 11:43am Office Visit APARNA R JEFF 01/07/14 10:00am Registered Clinic Aida [facility] 12/22/13 12:49pm Office Visit APARNA R JEFF 12/22/13 11:30am Office Visit APARNA R JEFF 12/10/13 11:00am Registered Recurring Aida [facility] 12/01/13 3:00pm Registered Clinic Aida [facility] 12/01/13 2:25pm Discharged Inpatient Aida [facility] 11/27/13 2:30am Office Visit APARNA R JEFF 11/26/13 10:45am Office Visit APARNA R JEFF 11/12/13 11:30am Office Visit APARNA R JEFF 11/05/13 9:15am Discharged Inpatient Aida [facility] 10/30/13 12:37pm Office Visit APARNA R JEFF 10/27/13 10:45am Office Visit APARNA R JEFF 10/06/13 11:15am Office Visit APARNA R JEFF 09/24/13 10:00am Office Visit APARNA R JEFF 09/08/13 10:30am Office Visit APARNA R JEFF 08/25/13 10:00am Office Visit APARNA R JEFF 08/18/13 11:00am Registered Clinic Aida [facility] 08/11/13 2:45pm Office Visit APARNA R JEFF 08/11/13 2:15pm Office Visit APARNA R JEFF 08/05/13 10:45am
--- OUTSIDE RECORDS SUMMARY | 2016-11-10 06:58 | XMS REPORT | Continuity of Care Document ---
Author Author [facility] Organization [facility] Address Unknown Phone Unavailable Care Team Providers Care Environmental Health And Safety Intern Name Role Phone APARNA AGUILAR MD Primary Care Physician [phone] Insurance Providers Payer Name Policy Number Subscriber Name Relationship Wps Medicare [id number] Amee Guillen 01 Self / Same As Patient For Life [id number] Amee Guillen Self / Same As Patient Advance Directives Directive Response Recorded Date/Time Patient Resuscitation Status Full Code 05/22/14 2:38am Advance Directives Yes 05/22/14 2:38am Living Will Yes 05/22/14 2:38am Health Care Power of Medical Secretary Yes 05/22/14 2:38am Chief Complaint and Reason [...] 05/27/13 08/25/13 Discontinued Fluticasone Propionate (Nasal) 2 [place] NA DAILY 1 Qty 05/27/13 Discontinued Levofloxacin 500 Mg PO DAILY 10 Qty 05/29/13 07/31/13 Discontinued Magnesium Oxide 400 Mg PO TWICE A DAY For NUTRIENT REPLACEMENT 180 Qty 06/30/13 04/07/14 Discontinued Fluconazole 100 Mg PO WEEKLY For PREVENT INFECTION 12 Qty 06/30/1303/07 Discontinued Tamsulosin Hcl 0.4 Mg PO DAILY For DYSUREA 90 Qty 06/30/13 Active Fluticasone Propionate (Nasal) 2 Webb NA DAILY For CONGESTION 3 Qty Active [...] Qty 02/08/14 Active Fluticasone Propionate (Nasal) 1-2 Webb NA DAILY For STUFFY NOSE 1 Qty [...] For CHF 30 Qty 02/19/14 02/26/14 Discontinued [place]-3 Fatty Acids 1,000 Mg PO DAILY 03/06/14 [...] Tolerated Physician Follow-up Appt #1: Dr Aguilar [phone] F/U Appt: One Week Discharge Instructions 1. [...] Nursing Instructions Physician Follow-up Appointment: Dr Aguilar [phone] Scheduled Date: 05/31/14 Scheduled Time: 1:45PM Signs [...] F (96.0 - 99.9) Temperature (Calculated Celsius) 36.63158 degrees C Temperature (Calculated Celsius) 36.08443 degrees C (36.4 - 37.5) Temperature (Fahrenheit) 98.4 degrees F (96.0 - 99.9) Temperature Source Oral Temperature Source Oral Temp 98.4 degrees F (96.0 - 99.9) Temperature (Calculated Celsius) 36.35237 degrees C Pulse Pulse Rate (adult) 84 [...] April 29, 2014 8:54am Lab Scanned Report [id number] Lactate Dehydrogenase September 28, 1998 4:10pm 152 [...] Synovial Fluid WBC September 27, 1998 12:00am 62926.0 /uL PH Target Cells August 05, 2001 [...] 05SOURCE : URINE, CLEAN CATCH Urine Specific [place] May 21, 2014 9:11pm 1.015 1.005-1.030 SOURCE: [...] Provider(s) THER/PROPH/DIAG IV INF INIT completed 05/25/13 JEFF,APARNA Burks MD THER/PROPH/DIAG IV [...] Encounter Location Date/Time Admitted Inpatient Aida [facility] 05/21/14 10:17pm Office Visit APARNA TURCIOSS 04/26/14 8:45am Office Visit APARNA TURCIOSS 04/20/14 1:30pm Registered Clinic Aida [facility] 04/20/14 11:00am Office Visit APARNA TURCIOSS 04/14/14 11:15am Office Visit APARNA TURCIOSS 04/01/14 10:30am Registered Clinic Aida Benson [facility] 03/23/14 10:53am Office Visit APARNA TURCIOSS 03/18/14 10:15am Office Visit APARNA TURCIOSS 03/11/14 11:15am Registered Clinic Aida Benson [facility] 03/09/14 11:00am Discharged Inpatient Aida Benson [facility] 03/06/14 8:25pm Office Visit APARNA TURCIOSS 03/05/14 11:15am Office Visit APARNA TURCIOSS 03/01/14 9:15am Office Visit APARNA TURCIOSS 02/26/14 10:00am Registered Clinic A[facility] 02/23/14 11:35am Discharged Inpatient Aidaeleni Benson [facility] 02/16/14 8:34pm Discharged Inpatient Aida Benson [facility] 02/12/14 2:30am Departed Emergency Room Aidaeleni Benson [facility] 02/08/14 10:15am Office Visit APARNA TURCIOSS 02/02/14 2:15pm Registered Clinic A[facility] 02/02/14 1:31pm Office Visit APARNA TURCIOSS 01/21/14 10:00am Registered Clinic Aida Benson [facility] 01/12/14 11:43am Office Visit APARNA TURCIOSS 01/07/14 10:00am Registered Clinic A[facility] 12/22/13 12:49pm Office Visit APARNA R JEFF 12/22/13 11:30am Office Visit APARNA R JEFF 12/10/13 11:00am Registered Recurring Aida [facility] 12/01/13 3:00pm Registered Clinic Aida [facility] 12/01/13 2:25pm Discharged Inpatient Aida Benson [facility] 11/27/13 2:30am Office Visit APARNA R JEFF 11/26/13 10:45am Office Visit APARNA R JEFF 11/12/13 11:30am Office Visit APARNA R JEFF 11/05/13 9:15am Discharged Inpatient Aida Benson [facility] 10/30/13 12:37pm Office Visit APARNA R JEFF 10/27/13 10:45am Office Visit APARNA R JEFF 10/06/13 11:15am Office Visit APARNA R JEFF 09/24/13 10:00am Office Visit APARNA R JEFF 09/08/13 10:30am Office Visit APARNA R JEFF 08/25/13 10:00am Office Visit APARNA R JEFF 08/18/13 11:00am Registered Clinic Aida Benson [facility] 08/11/13 2:45pm Office Visit APARNA R JEFF 08/11/13 2:15pm Office Visit APARNA R JEFF 08/05/13 10:45am Office Visit APARNA R JEFF 07/31/13 1:00pm Office Visit APARNA R JEFF 07/30/13 10:05am Office Visit APARNA R JEFF 07/24/13 11:30am Office Visit APARNA R JEFF 07/14/13 10:30am Office Visit APARNA R JEFF 06/30/13 10:30am Registered Clinic Aida Benson [facility] 06/09/13 11:37am Office Visit APARNA R JEFF 06/09/13 11:30am Registered Clinic Aida [facility] 06/02/13 11:35am Office Visit APARNA R JEFF 06/02/13 11:15am Discharged Inpatient Aida Benson [facility] 05/28/13 7:10am Office Visit APARNA R JEFF 05/27/13 1:00pm Discharged Inpatient Aida Benson [facility] 05/25/13 9:20am Recent Diagnosis Benign essential hypertension Diabetes mellitus Cellulitis Congestive heart failure (CHF) History of CHF (congestive heart failure) Chronic pain Cellulitis Opiate overdose Hypotension Cellulitis
--- OUTSIDE RECORDS SUMMARY | 2016-11-10 06:59 | XMS REPORT | Continuity of Care Document ---
Author Author [facility] Organization [facility] Address Unknown Phone Unavailable Care Team Providers Care Ged Teacher Name Role Phone APARNA AGUILAR MD Unavailable [phone] Insurance Providers Payer Name Policy Number Subscriber Name Relationship Wps Medicare [id number] Amee Guillen 01 Self / Same As Patient For Life [id number] Amee Guillen Self / Same As Patient Advance Directives Directive Response Recorded Date/Time Patient Resuscitation Status Full Code 06/15/14 3:31am Advance Directives Yes 06/15/14 3:31am Living Will Yes 06/15/14 3:31am Health Care Power of Head Of Conservation Yes 06/15/14 3:31am Problems Medical Problems Problem [...] 05/27/13 08/25/13 Discontinued Fluticasone Propionate (Nasal) 2 [place] NA DAILY 1 Qty 05/27/13 Discontinued Levofloxacin 500 Mg PO DAILY 10 Qty 05/29/13 07/31/13 Discontinued Magnesium Oxide 400 Mg PO TWICE A DAY For NUTRIENT REPLACEMENT 180 Qty 06/30/13 04/07/14 Discontinued Fluconazole 100 Mg PO WEEKLY For PREVENT INFECTION 12 Qty 06/30/1303/07 Discontinued Tamsulosin Hcl 0.4 Mg PO DAILY For DYSUREA 90 Qty 06/30/13 Active Fluticasone Propionate (Nasal) 2 [place] NA DAILY For CONGESTION 3 Qty Active [...] Qty 02/08/14 Active Fluticasone Propionate (Nasal) 1-2 [place] NA DAILY For STUFFY NOSE 1 Qty [...] For CHF 30 Qty 02/19/14 02/26/14 Discontinued [place]-3 Fatty Acids 1,000 Mg PO DAILY 03/06/14 [...] Qty 06/02/14 Active Fluticasone Propionate (Nasal) 1-2 [place] NA DAILY For STUFFY NOSE 1 Qty [...] F (96.0 - 99.9) Temperature (Calculated Celsius) 37.21724 degrees C Temperature (Calculated Celsius) 36.88710 degrees C (36.4 - 37.5) Temperature (Fahrenheit) 98.4 degrees F (96.0 - 99.9) Temperature Source Oral Temperature Source Axillary Temp 98.4 degrees F (96.0 - 99.9) Temperature (Calculated Celsius) 36.93747 degrees C Pulse Pulse Rate (adult) 94 [...] April 29, 2014 8:54am Lab Scanned Report [id number] Lactate Dehydrogenase September 28, 1998 4:10pm 152 [...] Synovial Fluid WBC September 27, 1998 12:00am 98244.0 /uL PH Target Cells August 05, 2001 [...] NONE SOURCE: URINE, CLEAN CATCH Urine Specific [place] June 15, 2014 12:35am 1.025 1.005-1.030 SOURCE: [...] Encounter Location Date/Time Admitted Inpatient Aida Benson [facility] 06/15/14 1:11am Registered Clinic Aidaeleni Benson [facility] 06/14/14 11:24am Office Visit APARNA R JEFF 06/14/14 11:00am Office Visit APARNA R JEFF 06/02/14 11:15am Discharged Inpatient Aida Benson [facility] 05/21/14 10:17pm Office Visit APARNA R JEFF 04/26/14 8:45am Office Visit APARNA R JEFF 04/20/14 1:30pm Registered Clinic Aida Benson [facility] 04/20/14 11:00am Office Visit APARNA R JEFF 04/14/14 11:15am Office Visit APARNA R JEFF 04/01/14 10:30am Registered Clinic Aida Benson [facility] 03/23/14 10:53am Office Visit APARNA R JEFF 03/18/14 10:15am Office Visit APARNA R JEFF 03/11/14 11:15am Registered Clinic Aida Benson [facility] 03/09/14 11:00am Discharged Inpatient Aida Bensno [facility] 03/06/14 8:25pm Office Visit APARNA R JEFF 03/05/14 11:15am Office Visit APARNA R JEFF 03/01/14 9:15am Office Visit APARNA R JEFF 02/26/14 10:00am Registered Clinic Aida Benson [facility] 02/23/14 11:35am Discharged Inpatient Aida Benson [facility] 02/16/14 8:34pm Discharged Inpatient Aida Benson [facility] 02/12/14 2:30am Departed Emergency Room Aida Benson [facility] 02/08/14 10:15am Office Visit APARNA R JEFF 02/02/14 2:15pm Registered Clinic Aida Benson [facility] 02/02/14 1:31pm Office Visit APARNA R JEFF 01/21/14 10:00am Registered Clinic Aida Benson [facility] 01/12/14 11:43am Office Visit APARNA R JEFF 01/07/14 10:00am Registered Clinic Aida Benson [facility] 12/22/13 12:49pm Office Visit APARNA R JEFF 12/22/13 11:30am Office Visit APARNA R JEFF 12/10/13 11:00am Registered Recurring Aida Benson [facility] 12/01/13 3:00pm Registered Clinic Aida Benson [facility] 12/01/13 2:25pm Discharged Inpatient Aida Benson [facility] 11/27/13 2:30am Office Visit APARNA R JEFF 11/26/13 10:45am Office Visit APARNA R JEFF 11/12/13 11:30am Office Visit APARNA R JEFF 11/05/13 9:15am Discharged Inpatient Aida Benson [facility] 10/30/13 12:37pm Office Visit APARNA R JEFF 10/27/13 10:45am Office Visit APARNA R JEFF 10/06/13 11:15am Office Visit APARNA R JEFF 09/24/13 10:00am Office Visit APARNA R JFEF 09/08/13 10:30am Office Visit APARNA R JEFF 08/25/13 10:00am Office Visit APARNA R JEFF 08/18/13 11:00am Registered Clinic Aida Benson [facility] 08/11/13 2:45pm Office Visit APARNA [...]
--- OUTSIDE RECORDS SUMMARY | 2016-11-10 06:59 | XMS REPORT | Continuity of Care Document ---
Author Author [facility] Organization [facility] Address Unknown Phone Unavailable Care Team Providers Care Rice Farmer Name Role Phone APARNA AGUILAR MD Unavailable [phone] Insurance Providers Payer Name Policy Number Subscriber Name Relationship Wps Medicare [id number] Amee Guillen Self / Same As Patient For Life [id number] Amee Guillen Self / Same As Patient [...] 05/27/13 08/25/13 Discontinued Fluticasone Propionate (Nasal) 2 [place] NA DAILY 1 Qty 05/27/13 Discontinued Levofloxacin [...] Qty 02/08/14 Active Fluticasone Propionate (Nasal) 1-2 [place] NA DAILY For STUFFY NOSE 1 Qty [...] F (96.0 - 99.9) Temperature (Calculated Celsius) 36.77504 degrees C Temperature Source Oral Temperature Source [...] October 28, 2014 2:17pm Lab Scanned Report [id number] Lactate Dehydrogenase September 28, 1998 4:10pm 152 [...] Synovial Fluid WBC September 27, 1998 12:00am 59582.0 /uL PH Target Cells August 05, 2001 [...] NONE SOURCE: URINE, CLEAN CATCH Urine Specific [place] December 16, 2014 10:02am 1.015 1.005-1.030 Urine [...] Encounters Encounter Location Date/Time Departed Emergency Room [facility] 12/30/14 11:10am Office Visit APARNA AGUILAR 12/27/14 11:15am Office Visit APARNA AGUILAR 12/20/14 1:15pm Office Visit APARNA AGUILAR 12/16/14 9:45am Office Visit APARNA AGUILAR 12/09/14 10:45am Departed Emergency Room [facility] 11/30/14 9:15am Office Visit APARNA AGUILAR 11/22/14 9:45am Office Visit APARNA AGUILAR 11/05/14 11:30am Departed Emergency Room [facility] 11/03/14 11:29am [facility] [place] [facility]26[facility]14 10:38am Office Visit APARNA AGUILAR 10/26/14 10:00am Departed Emergency Room [facility] 10/21/14 10:14am Office Visit APARNA AGUILAR 10/13/14 1:00pm Registered Clinic [place] [facility] 10/12/14 10:45am [facility] [place] [facility] 09/28/14 10:32am Office Visit APARNA R JEFF 09/28/14 10:15am Office Visit APARNA R JEFF 09/15/14 11:15am Office Visit APARNA R JEFF 09/01/14 10:45am Registered Clinic Aida [facility] 08/31/14 10:54am Office Visit APARNA R JEFF 08/18/14 10:45am Office Visit APARNA R JEFF 08/10/14 10:30am Discharged Inpatient Aida Benson [facility] 08/04/14 4:51pm Office Visit APARNA R JEFF 08/03/14 11:15am Registered Clinic Aida Benson [facility] 08/03/14 10:26am Office Visit APARNA R JEFF 07/22/14 10:45am Discharged Inpatient Aida Benson [facility] 07/09/14 11:21am Office Visit APARNA R JEFF 07/08/14 9:00am Registered Clinic Aida Benson [facility] 07/06/14 10:21am Office Visit APARNA R JEFF 07/02/14 10:30am Discharged Inpatient Aida Benson [facility] 06/15/14 1:11am Registered Clinic Aida Benson [facility] 06/14/14 11:24am Office Visit APARNA R JEFF 06/14/14 11:00am Office Visit APARNA R JEFF 06/02/14 11:15am Discharged Inpatient Aida Benson [facility] 05/21/14 10:17pm Office Visit APARNA R JEFF 04/26/14 8:45am Office Visit APARNA R JEFF 04/20/14 1:30pm Registered Clinic Aida [facility] 04/20/14 11:00am Office Visit APARNA R JEFF 04/14/14 11:15am Office Visit APARNA R JEFF 04/01/14 10:30am Registered Clinic Aida [facility] 03/23/14 10:53am Office Visit APARNA R JEFF 03/18/14 10:15am Office Visit APARNA R JEFF 03/11/14 11:15am Registered Clinic Aida [facility] 03/09/14 11:00am Discharged Inpatient Aidaeleni Benson [facility] 03/06/14 8:25pm Office Visit APARNA R JEFF 03/05/14 11:15am Office Visit APARNA AGUILAR 03/01/14 9:15am Office Visit APARNA AGUILAR 02/26/14 10:00am Registered Clinic Aida [facility] 02/23/14 11:35am Discharged Inpatient Aida Benson [facility] 02/16/14 8:34pm Discharged Inpatient Aida Benson [facility] 02/12/14 2:30am Departed Emergency Room Aida Benson [facility] 02/08/14 10:15am Office Visit APARNA AGUILAR 02/02/14 2:15pm Registered Clinic Aida [facility] 02/02/14 1:31pm Office Visit APARNA AGUILAR 01/21/14 10:00am Registered Clinic Aida [facility] 01/12/14 11:43am Office Visit APARNA AGUILAR 01/07/14 10:00am Recent Diagnosis
--- OUTSIDE RECORDS SUMMARY | 2016-11-10 07:00 | XMS REPORT | Continuity of Care Document ---
Author Author [facility] Organization [facility] Address Unknown Phone Unavailable Care Team Providers Care Generator Operator Name Role Phone APARNA AGUILAR MD Unavailable [phone] Insurance Providers Payer Name Policy Number Subscriber Name Relationship Wps Medicare [id number] Amee Guillen 01 Self / Same As Patient For Life [id number] Amee Guillen Self / Same As Patient [...] 05/27/13 08/25/13 Discontinued Fluticasone Propionate (Nasal) 2 [place] NA DAILY 1 Qty 05/27/13 Discontinued Levofloxacin [...] Qty 02/08/14 Active Fluticasone Propionate (Nasal) 1-2 [place] NA DAILY For STUFFY NOSE 1 Qty [...] F (96.0 - 99.9) Temperature (Calculated Celsius) 36.88411 degrees C Temperature (Calculated Celsius) 36.75114 degrees C (36.4 - 37.5) Temperature (Fahrenheit) 98.4 degrees F (96.0 - 99.9) Temperature Source Oral Temperature Source Oral Temp 98.4 degrees F (96.0 - 99.9) Temperature (Calculated Celsius) 36.51634 degrees C Pulse Pulse Rate (adult) 100 [...] April 29, 2014 8:54am Lab Scanned Report [id number] Lactate Dehydrogenase September 28, 1998 4:10pm 152 [...] Synovial Fluid WBC September 27, 1998 12:00am 74947.0 /uL PH Target Cells August 05, 2001 [...] NONE SOURCE: URINE, CLEAN CATCH Urine Specific [place] July 09, 2014 6:35am 1.015 1.005-1.030 SOURCE: [...] Encounter Location Date/Time Registered Clinic [facility] 10/12/14 10:45am Registered Clinic Aidaeleni Benson [facility] 09/28/14 10:32am Office Visit APARNA TURCIOSS 09/28/14 10:15am Office Visit APARNA TURCIOSS 09/15/14 11:15am Office Visit APARNA TURCIOSS 09/01/14 10:45am Registered Clinic Aidaeleni Benson [facility] 08/31/14 10:54am Office Visit APARNA TURCIOSS 08/18/14 10:45am Office Visit APARNA TURCIOSS 08/10/14 10:30am Discharged Inpatient [facility]ida B[facility] 08/04/14 4:51pm Office Visit APARNA TURCIOSS 08/03/14 11:15am Registered Clinic Aidaeleni Benson [facility] 08/03/14 10:26am Office Visit APARNA TURCIOSS 07/22/14 10:45am Discharged Inpatient Aidaeleni Benson [facility] 07/09/14 11:21am Office Visit APARNA TURCIOSS 07/08/14 9:00am Registered Clinic Aida Benson [facility] 07/06/14 10:21am Office Visit APARNA TURCIOSS 07/02/14 10:30am Discharged Inpatient Aidaeleni Benson [facility] 06/15/14 1:11am Registered Clinic Aidaeleni [facility] 06/14/14 11:24am Office Visit APARNA TURCIOSS 06/14/14 11:00am Office Visit APARNA TURCIOSS 06/02/14 11:15am Discharged Inpatient Aidaeleni Benson [facility] 05/21/14 10:17pm Office Visit APARNA R JEFF 04/26/14 8:45am Office Visit APARNA R JEFF 04/20/14 1:30pm Registered Clinic Aida Benson [facility] 04/20/14 11:00am Office Visit APARNA R JEFF 04/14/14 11:15am Office Visit APARNA R JEFF 04/01/14 10:30am Registered Clinic Aida Benson [facility] 03/23/14 10:53am Office Visit APARNA R JEFF 03/18/14 10:15am Office Visit APARNA R JEFF 03/11/14 11:15am Registered Clinic Aida Benson [facility] 03/09/14 11:00am Discharged Inpatient Aida Benson [facility] 03/06/14 8:25pm Office Visit APARNA R JEFF 03/05/14 11:15am Office Visit APARNA R JEFF 03/01/14 9:15am Office Visit APARNA R JEFF 02/26/14 10:00am Registered Clinic Aida Benson [facility] 02/23/14 11:35am Discharged Inpatient Aida Benson [facility] 02/16/14 8:34pm Discharged Inpatient Aida Benson [facility] 02/12/14 2:30am Departed Emergency Room Aidaeleni Benson [facility] 02/08/14 10:15am Office Visit APARNA R JEFF 02/02/14 2:15pm Registered Clinic Aida Benson [facility] 02/02/14 1:31pm Office Visit APARNA R JEFF 01/21/14 10:00am Registered Clinic Aida Benson [facility] 01/12/14 11:43am Office Visit APARNA R JEFF 01/07/14 10:00am Registered Clinic Aida Benson [facility] 12/22/13 12:49pm Office Visit APARNA R JEFF 12/22/13 11:30am Office Visit APARNA R JEFF 12/10/13 11:00am Registered Recurring Aida Benson [facility] 12/01/13 3:00pm Registered Clinic Aida Benson [facility] 12/01/13 2:25pm Discharged Inpatient Aida Benson [facility] 11/27/13 2:30am Office Visit APARNA R JEFF 11/26/13 10:45am Office Visit APARNA AGUILAR 11/12/13 11:30am Office Visit APARNA AGUILAR 11/05/13 9:15am Discharged Inpatient Aiad Benson [facility] 10/30/13 12:37pm Office Visit APARNA AGUILAR 10/27/13 10:45am
--- OUTSIDE RECORDS SUMMARY | 2016-11-10 07:01 | XMS REPORT | Continuity of Care Document ---
Author Author [facility] Organization [facility] Address Unknown Phone Unavailable Care Team Providers Care Instructor Dramatic Arts Name Role Phone APARNA AGUILAR MD Unavailable [phone] Insurance Providers Payer Name Policy Number Subscriber Name Relationship Wps Medicare [id number] Amee Guillen Self / Same As Patient For Life [id number] Amee Guillen Self / Same As Patient Chief Complaint and Reason for Visit Chief Complaint Dyspnea Reason for Visit [id number] Problems Medical Problems Problem Onset Date Status [...] 05/27/13 08/25/13 Discontinued Fluticasone Propionate (Nasal) 2 [place] NA DAILY 1 Qty 05/27/13 Discontinued Levofloxacin [...] Qty 02/08/14 Active Fluticasone Propionate (Nasal) 1-2 [place] NA DAILY For STUFFY NOSE 1 Qty [...] F (96.0 - 99.9) Temperature (Calculated Celsius) 36.04717 degrees C Temperature (Calculated Celsius) 36.46783 degrees C (36.4 - 37.5) Temperature (Fahrenheit) 98.4 degrees F (96.0 - 99.9) Temperature Source Oral Temperature Source Oral Temp 98.4 degrees F (96.0 - 99.9) Temperature (Calculated Celsius) 36.38793 degrees C Pulse Pulse Rate (adult) 79 [...] October 28, 2014 2:17pm Lab Scanned Report [id number] Lactate Dehydrogenase September 28, 1998 4:10pm 152 [...] Synovial Fluid WBC September 27, 1998 12:00am 68683.0 /uL PH Target Cells August 05, 2001 [...] NONE SOURCE: URINE, CLEAN CATCH Urine Specific [place] July 09, 2014 6:35am 1.015 1.005-1.030 SOURCE: [...] Encounters Encounter Location Date/Time Departed Emergency Room [facility] 11/03/14 11:29am Registered Clinic [facility] 10/26/14 10:38am Office Visit APARNA AGUILAR 10/26/14 10:00am Departed Emergency Room [facility] 10/21/14 10:14am Office Visit APARNA AGUILAR 10/13/14 1:00pm Registered Clinic [facility] 10/12/14 10:45am Registered Clinic [facility] 09/28/14 10:32am Office Visit APARNA AGUILAR 09/28/14 10:15am Office Visit APARNA AGUILAR 09/15/14 11:15am Office Visit APARNA AGUILAR 09/01/14 10:45am Registered Clinic [facility] 08/31/14 10:54am Office Visit APARNA R JEFF 08/18/14 10:45am Office Visit APARNA R JEFF 08/10/14 10:30am Discharged Inpatient Aida Benson [facility] 08/04/14 4:51pm Office Visit APARNA R JEFF 08/03/14 11:15am Registered Clinic Aida Benson [facility] 08/03/14 10:26am Office Visit APARNA R JEFF 07/22/14 10:45am Discharged Inpatient Aida Benson [facility] 07/09/14 11:21am Office Visit APARNA R JEFF 07/08/14 9:00am Registered Clinic Aida Benson [facility] 07/06/14 10:21am Office Visit APARNA R JEFF 07/02/14 10:30am Discharged Inpatient Aida Benson [facility] 06/15/14 1:11am Registered Clinic Aida Benson [facility] 06/14/14 11:24am Office Visit APARNA R JEFF 06/14/14 11:00am Office Visit APARNA R JEFF 06/02/14 11:15am Discharged Inpatient Aida Benson [facility] 05/21/14 10:17pm Office Visit APARNA R JEFF 04/26/14 8:45am Office Visit APARNA R JEFF 04/20/14 1:30pm Registered Clinic Aida Benson [facility] 04/20/14 11:00am Office Visit APARNA R JEFF 04/14/14 11:15am Office Visit APARNA R JEFF 04/01/14 10:30am Registered Clinic Aida Benson [facility] 03/23/14 10:53am Office Visit APARNA R JEFF 03/18/14 10:15am Office Visit APARNA R JEFF 03/11/14 11:15am Registered Clinic Aida Benson [facility] 03/09/14 11:00am Discharged Inpatient Aida Benson [facility] 03/06/14 8:25pm Office Visit APARNA R JEFF 03/05/14 11:15am Office Visit APARNA R JEFF 03/01/14 9:15am Office Visit APARNA R JEFF 02/26/14 10:00am Registered Clinic Aida Benson [facility] 02/23/14 11:35am Discharged Inpatient Aida Benson [facility] 02/16/14 8:34pm Discharged Inpatient Aida Benson [facility] 02/12/14 2:30am Departed Emergency Room Aida Benson [facility] 02/08/14 10:15am Office Visit APARNA AGUILAR 02/02/14 2:15pm Registered Clinic Aida Benson [facility] 02/02/14 1:31pm Office Visit APARNA AGUILAR 01/21/14 10:00am Registered Clinic Aida Benson [facility] 01/12/14 11:43am Office Visit APARNA AGUILAR 01/07/14 10:00am Registered Clinic Aida Benson [facility] 12/22/13 12:49pm Office Visit APARNA AGUILAR 12/22/13 11:30am Office Visit APARNA AGUILAR 12/10/13 11:00am Registered [facility] Aida Benson [facility] 12/01/13 3:00pm Registered Clinic Aida Benson [facility] 12/01/13 2:25pm Discharged Inpatient Aida Benson [facility] 11/27/13 2:30am Office Visit APARNA AGUILAR 11/26/13 10:45am Office Visit APARNA AGUILAR 11/12/13 11:30am Office Visit APARNA AGUILAR 11/05/13 9:15am Recent Diagnosis
--- OUTSIDE RECORDS SUMMARY | 2016-11-10 07:01 | XMS REPORT | Continuity of Care Document ---
Author Author [facility] Organization [facility] Address Unknown Phone Unavailable Care Team Providers Care Railroad Baggage Porter Name Role Phone APARNA AGUILAR MD Unavailable [phone] Insurance Providers Payer Name Policy Number Subscriber Name Relationship Wps Medicare [id number] Amee Guillen Self / Same As Patient For Life [id number] Amee Guillen Self / Same As Patient [...] 05/27/13 08/25/13 Discontinued Fluticasone Propionate (Nasal) 2 [place] NA DAILY 1 Qty 05/27/13 Discontinued Levofloxacin 500 Mg PO DAILY 10 Qty 05/29/13 07/31/13 Discontinued Magnesium Oxide 400 Mg PO TWICE A DAY 180 Qty 06/30/13 Active Fluconazole 100 Mg PO WEEKLY 12 Qty 06/30/13 Active Tamsulosin Hcl 0.4 Mg PO DAILY 90 Qty 06/30/13 Active Fluticasone Propionate (Nasal) 2 [place] NA DAILY 3 Qty 06/30/13 Active Minocycline [...] Qty 02/08/14 Active Fluticasone Propionate (Nasal) 1-2 [place] NA DAILY 1 Qty 02/12/14 Active Nitroglycerin [...] Tolerated Physician Follow-up Appt #1: Dr Aguilar [phone] F/U Appt: One Week Discharge Instructions 1. Follow up with Dr Aguilar within 1 week 2. Return to the ED for evaluation if any concerns. Signs/Symptoms -notify Doctor: Fever above 101 deg, Shortness of Breath, Chilling Nursing Instructions Physician Follow-up Appointment: Dr Aguilar [phone] Scheduled Date: 02/26/14 Scheduled Time: 10 am [...] January 26, 2014 2:09pm Lab Scanned Report [id number] Lactate Dehydrogenase September 28, 1998 4:10pm 152 [...] Synovial Fluid WBC September 27, 1998 12:00am 25633.0 /uL PH Target Cells August 05, 2001 [...] 05SOURCE : URINE, CLEAN CATCH Urine Specific [place] February 16, 2014 10:54pm 1.010 1.005-1.030 HAS [...] Encounter Location Date/Time Registered Clinic [facility] 02/23/14 11:35am Discharged Inpatient [place] Ramon [facility] 02/16/14 8:34pm Discharged Inpatient [place] Ramon [facility] 02/12/14 2:30am Departed Emergency Room [facility] 02/08/14 10:15am Office Visit APARNA AGUILAR 02/02/14 2:15pm Registered Clinic [facility] 02/02/14 1:31pm Office Visit APARNA AGUILAR 01/21/14 10:00am Registered Clinic [facility] 01/12/14 11:43am Office Visit APARNA AGUILAR 01/07/14 10:00am Registered Clinic [facility] 12/22/13 12:49pm Office Visit APARNA AGUILAR 12/22/13 11:30am Office Visit APARNA TURCIOSS 12/10/13 11:[facility] 3:[facility]pm Registered Clinic [facility] 12/01/13 2:25pm Discharged Inpatient Aida Ramon [facility] 11/27/13 2:30am Office Visit APARNA AGUILAR 11/26/13 10:45am Office Visit APARNA AGUILAR 11/12/13 11:30am Office Visit APARNA R JEFF 11/05/13 9:15am Discharged Inpatient Aida Benson [facility] 10/30/13 12:37pm Office Visit APARNA R JEFF 10/27/13 10:45am Office Visit APARNA R JEFF 10/06/13 11:15am Office Visit APARNA R JEFF 09/24/13 10:00am Office Visit APARNA R JEFF 09/08/13 10:30am Office Visit APARNA R JEFF 08/25/13 10:00am Office Visit APARNA R JEFF 08/18/13 11:00am Registered Clinic Aida Benson [facility] 08/11/13 2:45pm Office Visit APARNA R JFEF 08/11/13 2:15pm Office Visit APARNA R JEFF 08/05/13 10:45am Office Visit APARNA R JEFF 07/31/13 1:00pm Office Visit APARNA R JEFF 07/30/13 10:05am Office Visit APARNA R JEFF 07/24/13 11:30am Office Visit APARNA R JEFF 07/14/13 10:30am Office Visit APARNA R JEFF 06/30/13 10:30am Registered Clinic Aida Benson [facility] 06/09/13 11:37am Office Visit APARNA R JEFF 06/09/13 11:30am Registered Clinic Aida Benson [facility] 06/02/13 11:35am Office Visit APARNA R JEFF 06/02/13 11:15am Discharged Inpatient Aida Benson [facility] 05/28/13 7:10am Office Visit APARNA R JEFF 05/27/13 1:00pm Discharged Inpatient Aida Benson [facility] 05/25/13 9:20am Office Visit APARNA R JEFF 05/19/13 11:15am Registered Clinic Aida Benson [facility] 05/12/13 1:36pm Office Visit APARNA R [...]
--- OUTSIDE RECORDS SUMMARY | 2016-11-10 07:03 | XMS REPORT | Continuity of Care Document ---
Author Author [facility] Organization [facility] Address Unknown Phone Unavailable Care Team Providers Care Tape Recorder Mechanic Name Role Phone APARNA AGUILAR MD Unavailable [phone] Insurance Providers Payer Name Policy Number Subscriber Name Relationship Wps Medicare [id number] Amee Guillen Self / Same As Patient For Life [id number] Amee Guillen Self / Same As Patient Chief Complaint and Reason for Visit Chief Complaint Respiratory Problem Reason for Visit Respiratory acidosis Hypoxemia [id number] Problems Medical Problems Problem Onset Date Status [...] 05/27/13 08/25/13 Discontinued Fluticasone Propionate (Nasal) 2 [place] NA DAILY 1 Qty 05/27/13 Discontinued Levofloxacin [...] Qty 02/08/14 Active Fluticasone Propionate (Nasal) 1-2 [place] NA DAILY For STUFFY NOSE 1 Qty [...] F (96.0 - 99.9) Temperature (Calculated Celsius) 36.00297 degrees C Temperature (Calculated Celsius) 36.24873 degrees C (36.4 - 37.5) Temperature (Fahrenheit) 98.4 degrees F (96.0 - 99.9) Temperature Source Oral Temperature Source Oral Temp 98.4 degrees F (96.0 - 99.9) Temperature (Calculated Celsius) 36.33579 degrees C Pulse Pulse Rate (adult) 87 [...] April 29, 2014 8:54am Lab Scanned Report [id number] Lactate Dehydrogenase September 28, 1998 4:10pm 152 [...] Synovial Fluid WBC September 27, 1998 12:00am 72149.0 /uL PH Target Cells August 05, 2001 [...] NONE SOURCE: URINE, CLEAN CATCH Urine Specific [place] July 09, 2014 6:35am 1.015 1.005-1.030 SOURCE: [...] Encounters Encounter Location Date/Time Departed Emergency Room [facility] 10/21/14 10:14am Office Visit APARNA AGUILAR 10/13/14 1:00pm Registered Clinic [facility] 10/12/14 10:45am Registered Clinic Aida Ramon [facility] 09/28/14 10:32am Office Visit APARNA AGUILAR 09/28/14 10:15am Office Visit APARNA AGUILAR 09/15/14 11:15am Office Visit APARNA AGUILAR 09/01/14 10:45am Registered Clinic [facility] 08/31/14 10:54am Office Visit APARNA AGUILAR 08/18/14 10:45am Office Visit APARNA AGUILAR 08/10/14 10:30am Discharged Inpatient [place] Ramon [facility] 08/04/14 4:51pm Office Visit APARNA AGUILAR 08/03/14 11:15am Registered Clinic [facility] 08/03/14 10:26am Office Visit APARNA AGUILAR 07/22/14 10:45am Discharged Inpatient Aidaeleni Benson [facility] 07/09/14 11:21am Office Visit APARNA Vitaliy JEFF 07/08/14 9:00am Registered Clinic Aida Benson [facility] 07/06/14 10:21am Office Visit APARNA R JEFF 07/02/14 10:30am Discharged Inpatient Aida Ramon Benson [facility] 06/15/14 1:11am Registered Clinic Aida Benson [facility] 06/14/14 11:24am Office Visit APARNA R JEFF 06/14/14 11:00am Office Visit APARNA R JEFF 06/02/14 11:15am Discharged Inpatient Aidaeleni Benson [facility] 05/21/14 10:17pm Office Visit APARNA R JEFF 04/26/14 8:45am Office Visit APARNA R JEFF 04/20/14 1:30pm Registered Clinic Aida Benson [facility] 04/20/14 11:00am Office Visit APARNA Burks JEFF 04/14/14 11:15am Office Visit APARNA DELUCAHNS 04/01/14 10:30am Registered Clinic Aida Benson [facility] 03/23/14 10:53am Office Visit APARNA R JEFF 03/18/14 10:15am Office Visit APARNA R JEFF 03/11/14 11:15am Registered Clinic Aida Benson [facility] 03/09/14 11:00am Discharged Inpatient Aida BarrientosJermain Benson [facility] 03/06/14 8:25pm Office Visit APARNA R JEFF 03/05/14 11:15am Office Visit APARNA R JEFF 03/01/14 9:15am Office Visit APARNA R JEFF 02/26/14 10:00am Registered Clinic Aida Benson [facility] 02/23/14 11:35am Discharged Inpatient Aida Benson [facility] 02/16/14 8:34pm Discharged Inpatient Aida Benson [facility] 02/12/14 2:30am Departed Emergency Room Aidaeleni Benson [facility] 02/08/14 10:15am Office Visit APARNA R JEFF 02/02/14 2:15pm Registered Clinic Aida Benson [facility] 02/02/14 1:31pm Office Visit APARNA AGUILAR 01/21/14 10:00am Registered Clinic Aida Benson [facility] 01/12/14 11:43am Office Visit APARNA AGUILAR 01/07/14 10:00am Registered Clinic Aida Benson [facility] 12/22/13 12:49pm Office Visit APARNA AGUILAR 12/22/13 11:30am Office Visit APARNA AGUILAR 12/10/13 11:00am Registered Recurring Aida Benson [facility] 12/01/13 3:00pm Registered Clinic Aida Benson [facility] 12/01/13 2:25pm Discharged Inpatient Aida Benson [facility] 11/27/13 2:30am Office Visit APARNA AGUILAR 11/26/13 10:45am Office Visit APARNA AGUILAR 11/12/13 11:30am Office Visit APARNA AGUILAR 11/05/13 9:15am Discharged Inpatient Aida Benson [facility] 10/30/13 12:37pm Office Visit APARNA AGUILAR 10/27/13 10:45am Recent Diagnosis
--- OUTSIDE RECORDS SUMMARY | 2016-11-10 07:03 | XMS REPORT | Continuity of Care Document ---
Author Author [facility] Organization [facility] Address Unknown Phone Unavailable Care Team Providers Care Traffic Division Commanding Officer Name Role Phone APARNA AGUILAR MD Unavailable [phone] Insurance Providers Payer Name Policy Number Subscriber Name Relationship Wps Medicare [id number] Amee Guillen Self / Same As Patient For Life [id number] Amee Guillen Self / Same As Patient [...] 05/27/13 08/25/13 Discontinued Fluticasone Propionate (Nasal) 2 [place] NA DAILY 1 Qty 05/27/13 Discontinued Levofloxacin 500 Mg PO DAILY 10 Qty 05/29/13 07/31/13 Discontinued Magnesium Oxide 400 Mg PO TWICE A DAY 180 Qty 06/30/13 Active Fluconazole 100 Mg PO WEEKLY 12 Qty 06/30/13 Active Tamsulosin Hcl 0.4 Mg PO DAILY 90 Qty 06/30/13 Active Fluticasone Propionate (Nasal) 2 [place] NA DAILY 3 Qty 3 month supply [...] Synovial Fluid WBC September 27, 1998 12:00am 56428.0 /uL PH Target Cells August 05, 2001 [...] 05SOURCE : URINE, CLEAN CATCH Urine Specific [place] October 30, 2013 4:48pm 1.015 1.005-1.030 HAS [...] August 25, 2013 10:32am Lab Scanned Report [id number] Bedside Troponin I November 27, 2013 1:15am [...] procedures. Encounters Encounter Location Date/Time Registered Clinic [facility] 12/22/13 12:49pm Office Visit APARNA TURCIOSS 12/22/13 11:30am Office Visit APARNA TURCIOSS 12/10/13 11:00am Registered [facility] 12/01/13 3:00pm Registered Clinic [facility] 12/01/13 2:25pm Discharged Inpatient [facility] 11/27/13 2:30am Office Visit APARNA DELUCAHNS 11/26/13 10:45am Office Visit APARNA Burks JEFF 11/12/13 11:30am Office Visit APARNA R JEFF 11/05/13 9:15am Discharged Inpatient [facility] 10/30/13 12:37pm Office Visit APARNA Burks JEFF 10/27/13 10:45am Office Visit APARNA R JEFF 10/06/13 11:15am Office Visit APARNA R JEFF 09/24/13 10:00am Office Visit APARNA R JEFF 09/08/13 10:30am Office Visit APARNA R JEFF 08/25/13 10:00am Office Visit APARNA R JEFF 08/18/13 11:00am Registered Clinic [facility] 08/11/13 2:45pm Office Visit APARNA R JEFF 08/11/13 2:15pm Office Visit APARNA R JEFF 08/05/13 10:45am Office Visit APARNA R JEFF 07/31/13 1:00pm Office Visit APARNA R JEFF 07/30/13 10:05am Office Visit APARNA R JEFF 07/24/13 11:30am Office Visit APARNA R JEFF 07/14/13 10:30am Office Visit APARNA R JEFF 06/30/13 10:30am Registered Clinic Aida Benson [facility] 06/09/13 11:37am Office Visit APARNA R JEFF 06/09/13 11:30am Registered Clinic Aida Benson [facility] 06/02/13 11:35am Office Visit APARNA R JEFF 06/02/13 11:15am Discharged Inpatient Aida Benson [facility] 05/28/13 7:10am Office Visit APARNA R JEFF 05/27/13 1:00pm Discharged Inpatient Aida Benson [facility] 05/25/13 9:20am Office Visit APARNA R JEFF 05/19/13 11:15am Registered Clinic Aida Benson [facility] 05/12/13 1:36pm Office Visit APARNA [...]
--- OUTSIDE RECORDS SUMMARY | 2016-11-10 07:05 | XMS REPORT | Continuity of Care Document ---
Author Author [facility] Organization [facility] Address Unknown Phone Unavailable Care Team Providers Care Benefits Specialist Recruiter Name Role Phone APARNA AGUILAR MD Unavailable [phone] Insurance Providers Payer Name Policy Number Subscriber Name Relationship Wps Medicare [id number] Amee Guillen 01 Self / Same As Patient For Life [id number] Amee Guillen Self / Same As Patient [...] 05/27/13 08/25/13 Discontinued Fluticasone Propionate (Nasal) 2 [place] NA DAILY 1 Qty 05/27/13 Discontinued Levofloxacin 500 Mg PO DAILY 10 Qty 05/29/13 07/31/13 Discontinued Magnesium Oxide 400 Mg PO TWICE A DAY 180 Qty 06/30/13 04/07/14 Discontinued Fluconazole 100 Mg PO WEEKLY 12 Qty 06/30/13 04/01/14 Discontinued Tamsulosin Hcl 0.4 Mg PO DAILY 90 Qty 06/30/13 Active Fluticasone Propionate (Nasal) 2 [place] NA DAILY 3 Qty 06/30/13 Active Minocycline [...] Qty 02/08/14 Active Fluticasone Propionate (Nasal) 1-2 [place] NA DAILY 1 Qty 02/12/14 Active Nitroglycerin [...] PO DAILY 30 Qty 02/19/14 02/26/14 Discontinued [place]-3 Fatty Acids 1,000 Mg PO DAILY 03/06/14 [...] F (96.0 - 99.9) Temperature (Calculated Celsius) 37.03750 degrees C Temperature (Calculated Celsius) 36.65957 degrees C (36.4 - 37.5) Temperature (Fahrenheit) 98.4 degrees F (96.0 - 99.9) Temperature Source Oral Temperature Source Oral Temp 98.4 degrees F (96.0 - 99.9) Temperature (Calculated Celsius) 36.30276 degrees C Pulse Pulse Rate (adult) 88 [...] March 12, 2014 11:51am Lab Scanned Report [id number] Lactate Dehydrogenase September 28, 1998 4:10pm 152 [...] Synovial Fluid WBC September 27, 1998 12:00am 35007.0 /uL PH Target Cells August 05, 2001 [...] 05SOURCE : URINE, CLEAN CATCH Urine Specific [place] March 06, 2014 6:15pm 1.015 1.005-1.030 SOURCE: [...] Location Date/Time Registered Clinic [facility] 04/20/14 11:00am Office Visit APARNA AGUILAR 04/14/14 11:15am Office Visit APARNA AGUILAR 04/01/14 10:30am Registered Clinic Aida Ramon [facility] 03/23/14 10:53am Office Visit APARNA AGUILAR 03/18/14 10:15am Office Visit APARNA TURCIOSS 03/11/14 11:15am Registered Clinic [facility] 03/09/14 11:00am Discharged Inpatient Aida Ramon Benson [facility] 03/06/14 8:25pm Office Visit APARNA AGUILAR 03/05/14 11:15am Office Visit APARNA AGUILAR 03/01/14 9:15am Office Visit APARNA AGUILAR 02/26/14 10:00am Registered Clinic Aidaeleni Benson [facility] 02/23/14 11:35am Discharged Inpatient [facility] 02/16/14 8:34pm [facility] 2:30am Departed Emergency Room [facility] 02/08/14 10:15am Office Visit APARNA AGUILAR 02/02/14 2:15pm Registered Clinic Aidaeleni Benson [facility] 02/02/14 1:31pm Office Visit APARNA AGUILAR 01/21/14 10:00am Registered Clinic [facility] 01/12/14 11:43am Office Visit APARNA R JEFF 01/07/14 10:00am Registered Clinic Aida Benson [facility] 12/22/13 12:49pm Office Visit APARNA R JEFF 12/22/13 11:30am Office Visit APARNA R JEFF 12/10/13 11:00am Registered Recurring Aida Benson [facility] 12/01/13 3:00pm Registered Clinic Aida Benson [facility] 12/01/13 2:25pm Discharged Inpatient Aida Benson [facility] 11/27/13 2:30am Office Visit APARNA R JEFF 11/26/13 10:45am Office Visit APARNA R JEFF 11/12/13 11:30am Office Visit APARNA R JEFF 11/05/13 9:15am Discharged Inpatient Aida Benson [facility] 10/30/13 12:37pm Office Visit APARNA R JEFF 10/27/13 10:45am Office Visit APARNA R JEFF 10/06/13 11:15am Office Visit APARNA R JEFF 09/24/13 10:00am Office Visit APARNA R JEFF 09/08/13 10:30am Office Visit APARNA R JEFF 08/25/13 10:00am Office Visit APARNA R JEFF 08/18/13 11:00am Registered Clinic Aida Benson [facility] 08/11/13 2:45pm Office Visit APARNA R JEFF 08/11/13 2:15pm Office Visit APARNA R JEFF 08/05/13 10:45am Office Visit APARNA R JEFF 07/31/13 1:00pm Office Visit APARNA R JEFF 07/30/13 10:05am Office Visit APARNA R JEFF 07/24/13 11:30am Office Visit APARNA R JEFF 07/14/13 10:30am Office Visit APARNA R JEFF 06/30/13 10:30am Registered Clinic Aida Benson [facility] 06/09/13 11:37am Office Visit APARNA R JEFF 06/09/13 11:30am Registered Clinic Aida Benson [facility] 06/02/13 11:35am Office Visit APARNA R JEFF 06/02/13 11:15am Discharged Inpatient Aida Benson [facility] 05/28/13 7:10am Office Visit APARNA R JEFF 05/27/13 1:00pm Discharged Inpatient Aida Benson [facility] 05/25/13 9:20am Office Visit APARNA AGUILAR 05/19/13 11:15am Registered Clinic Aida Benson [facility] 05/12/13 1:36pm Office Visit APARNA AGUILAR 05/12/13 1:15pm Office Visit APARNA AGUILAR 05/06/13 11:15am Office Visit APARNA AGUILAR 04/22/13 11:00am
--- OUTSIDE RECORDS SUMMARY | 2016-11-10 07:05 | XMS REPORT | Continuity of Care Document ---
Author Author [facility] Organization [facility] Address Unknown Phone Unavailable Care Team Providers Care Water Meter Installer Name Role Phone APARNA AGUILAR MD Unavailable [phone] Insurance Providers Payer Name Policy Number Subscriber Name Relationship Wps Medicare [id number] Amee Guillen 01 Self / Same As Patient For Life [id number] Amee Guillen Self / Same As Patient [...] 05/27/13 08/25/13 Discontinued Fluticasone Propionate (Nasal) 2 [place] NA DAILY 1 Qty 05/27/13 Discontinued Levofloxacin 500 Mg PO DAILY 10 Qty 05/29/13 07/31/13 Discontinued Magnesium Oxide 400 Mg PO TWICE A DAY 180 Qty 06/30/13 Active Fluconazole 100 Mg PO WEEKLY 12 Qty 06/30/13 Active Tamsulosin Hcl 0.4 Mg PO DAILY 90 Qty 06/30/13 Active Fluticasone Propionate (Nasal) 2 [place] NA DAILY 3 Qty 06/30/13 Active Minocycline [...] Qty 02/08/14 Active Fluticasone Propionate (Nasal) 1-2 [place] NA DAILY 1 Qty 02/12/14 Active Nitroglycerin [...] PO DAILY 30 Qty 02/19/14 02/26/14 Discontinued [place]-3 Fatty Acids 1,000 Mg PO DAILY 03/06/14 [...] F (96.0 - 99.9) Temperature (Calculated Celsius) 37.97275 degrees C Temperature (Calculated Celsius) 36.48477 degrees C (36.4 - 37.5) Temperature (Fahrenheit) 98.4 degrees F (96.0 - 99.9) Temperature Source Oral Temperature Source Oral Temp 98.4 degrees F (96.0 - 99.9) Temperature (Calculated Celsius) 36.72599 degrees C Pulse Pulse Rate (adult) 105 [...] March 12, 2014 11:51am Lab Scanned Report [id number] Lactate Dehydrogenase September 28, 1998 4:10pm 152 [...] Synovial Fluid WBC September 27, 1998 12:00am 37373.0 /uL PH Target Cells August 05, 2001 [...] 05SOURCE : URINE, CLEAN CATCH Urine Specific [place] March 06, 2014 6:15pm 1.015 1.005-1.030 SOURCE: [...] Encounter Location Date/Time Registered Clinic Aida Benson [facility] 03/23/14 10:53am Office Visit APARNA R JEFF 03/18/14 10:15am Office Visit APARNA R JEFF 03/11/14 11:15am Registered Clinic Aida Benson [facility] 03/09/14 11:00am Discharged Inpatient Aida Benson [facility] 03/06/14 8:25pm Office Visit APARNA R JEFF 03/05/14 11:15am Office Visit APARNA R JEFF 03/01/14 9:15am Office Visit APARNA R JEFF 02/26/14 10:00am Registered Clinic Aida Benson [facility] 02/23/14 11:35am Discharged Inpatient Aidaeleni Benson [facility] 02/16/14 8:34pm Discharged Inpatient Aidaeleni Benson [facility] 02/12/14 2:30am Departed Emergency Room Aida Benson [facility] 02/08/14 10:15am Office Visit APARNA R JEFF 02/02/14 2:15pm Registered Clinic Aida Benson [facility] 02/02/14 1:31pm Office Visit APARNA R JEFF 01/21/14 10:00am Registered Clinic Aida Benson [facility] 01/12/14 11:43am Office Visit APARNA R JEFF 01/07/14 10:00am Registered Clinic Aida Benson [facility] 12/22/13 12:49pm Office Visit APARNA R JEFF 12/22/13 11:30am Office Visit APARNA R JEFF 12/10/13 11:00am Registered [facility] Aida Benson [facility] 12/01/13 3:00pm Registered Clinic Aida Benson [facility] 12/01/13 2:25pm Discharged Inpatient Aidaeleni Benson [facility] 11/27/13 2:30am Office Visit APARNA R [...]
--- OUTSIDE RECORDS SUMMARY | 2016-11-10 07:06 | XMS REPORT | Continuity of Care Document ---
Author Author [facility] Organization [facility] Address Unknown Phone Unavailable Care Team Providers Care Copy Reader Name Role Phone APARNA AGUILAR MD Unavailable [phone] Insurance Providers Payer Name Policy Number Subscriber Name Relationship Wps Medicare [id number] Amee Guillen 01 Self / Same As Patient For Life [id number] Amee Guillen Self / Same As Patient [...] 05/27/13 08/25/13 Discontinued Fluticasone Propionate (Nasal) 2 [place] NA DAILY 1 Qty 05/27/13 Discontinued Levofloxacin [...] Qty 02/08/14 Active Fluticasone Propionate (Nasal) 1-2 [place] NA DAILY For STUFFY NOSE 1 Qty [...] F (96.0 - 99.9) Temperature (Calculated Celsius) 36.28151 degrees C Temperature (Calculated Celsius) 36.58615 degrees C (36.4 - 37.5) Temperature (Fahrenheit) 98.4 degrees F (96.0 - 99.9) Temperature Source Oral Temperature Source Oral Temp 98.4 degrees F (96.0 - 99.9) Temperature (Calculated Celsius) 36.01569 degrees C Pulse Pulse Rate (adult) 94 [...] April 29, 2014 8:54am Lab Scanned Report [id number] Lactate Dehydrogenase September 28, 1998 4:10pm 152 [...] Synovial Fluid WBC September 27, 1998 12:00am 17952.0 /uL PH Target Cells August 05, 2001 [...] NONE SOURCE: URINE, CLEAN CATCH Urine Specific [place] July 09, 2014 6:35am 1.015 1.005-1.030 SOURCE: [...] Encounters En[facility] Office Visit APARNA AGUILAR 10/26/14 10:00am [facility] [place] [facility] 10[facility]14[facility] Office Visit APARNA AGUILAR 10/13/14 1:00pm Registered Clinic [place] [facility] 10/12/14 10:45am Registered Clinic Aida Ram[facility] 09/28/14 10:32am Office Visit APARNA AGUILAR 09/28/14 10:15am Office Visit APARNA AGUILAR 09/15/14 11:15am Office Visit APARNA AGUILAR 09/01/14 10:45am Registered Clinic [facility] 08/31/14 10:54am Office Visit APARNA AGUILAR 08/18/14 10:45am Office Visit APARNA AGUILAR 08/10/14 10:30am [facility] [place] [facility] 4:51pm Office Visit APARNA AGUILAR 08/03/14 11:15am Registered Clinic Aida B. [facility] 08/03/14 10:26am Office Visit APARNA AGUILAR 07/22/14 10:45am Discharged Inpatient [place] [facility] 07/09/14 11:21am Office Visit APARNA AGUILAR 07/08/14 9:00am Registered Clinic Aida Benson [facility] 07/06/14 10:21am Office Visit APARNA DELUCAHNS 07/02/14 10:30am Discharged Inpatient Aida Benson [facility] 06/15/14 1:11am Registered Clinic Aida Benson [facility] 06/14/14 11:24am Office Visit APARNA R JEFF 06/14/14 11:00am Office Visit APARNA R JEFF 06/02/14 11:15am Discharged Inpatient Aida Benson [facility] 05/21/14 10:17pm Office Visit APARNA Vitaliy DELUCAJEFF 04/26/14 8:45am Office Visit APARNA Vitaliy DELUCAJEFF 04/20/14 1:30pm Registered Clinic Aida Benson [facility] 04/20/14 11:00am Office Visit APARNA R JEFF 04/14/14 11:15am Office Visit APARNA DELUCAHNS 04/01/14 10:30am Registered Clinic Aida Benson [facility] 03/23/14 10:53am Office Visit APARNA R JEFF 03/18/14 10:15am Office Visit APARNA R JEFF 03/11/14 11:15am Registered Clinic Aida Benson [facility] 03/09/14 11:00am Discharged Inpatient Aida Ramon Benson [facility] 03/06/14 8:25pm Office Visit APARNA R JEFF 03/05/14 11:15am Office Visit APARNA Vitaliy JEFF 03/01/14 9:15am Office Visit APARNA DELUCAHNS 02/26/14 10:00am Registered Clinic Aida Benson [facility] 02/23/14 11:35am Discharged Inpatient Aida Benson [facility] 02/16/14 8:34pm Discharged Inpatient Aida Benson [facility] 02/12/14 2:30am Departed Emergency Room Aidaeleni Benson [facility] 02/08/14 10:15am Office Visit APARNA DELUCAHNS 02/02/14 2:15pm Registered Clinic Aida Benson [facility] 02/02/14 1:31pm Office Visit APARNA DELUCAHNS 01/21/14 10:00am Registered Clinic Aida Benson [facility] 01/12/14 11:43am Office Visit APARNA AGUILAR 01/07/14 10:00am Registered Clinic Aida Benson [facility] 12/22/13 12:49pm Office Visit APARNA AGUILAR 12/22/13 11:30am Office Visit APARNA AGUILAR 12/10/13 11:00am Registered [facility] Aida Benson [facility] 12/01/13 3:00pm Registered Clinic Aida Benson [facility] 12/01/13 2:25pm Discharged Inpatient Aida Benson [facility] 11/27/13 2:30am Office Visit APARNA AGUILAR 11/26/13 10:45am Office Visit APARNA AGUILAR 11/12/13 11:30am Office Visit APARNA AGUILAR 11/05/13 9:15am Discharged Inpatient Aida Benson [facility] 10/30/13 12:37pm Office Visit APARNA AGUILAR 10/27/13 10:45am
--- OUTSIDE RECORDS SUMMARY | 2016-11-10 07:06 | XMS REPORT | Continuity of Care Document ---
Author Author [facility] Organization [facility] Address Unknown Phone Unavailable Care Team Providers Care Public Relations Supervisor Name Role Phone APARNA AGUILAR MD Unavailable [phone] Insurance Providers Payer Name Policy Number Subscriber Name Relationship Wps Medicare [id number] Amee Guillen 01 Self / Same As Patient For Life [id number] Amee Guillen Self / Same As Patient Advance Directives Directive Response Recorded Date/Time Patient Resuscitation Status Full Code 06/15/14 3:31am Advance Directives Yes 06/15/14 3:31am Living Will Yes 06/15/14 3:31am Health Care Power of Chip Silo Tender Yes 06/15/14 3:31am Chief Complaint and Reason [...] 05/27/13 08/25/13 Discontinued Fluticasone Propionate (Nasal) 2 [place] NA DAILY 1 Qty 05/27/13 Discontinued Levofloxacin 500 Mg PO DAILY 10 Qty 05/29/13 07/31/13 Discontinued Magnesium Oxide 400 Mg PO TWICE A DAY For NUTRIENT REPLACEMENT 180 Qty 06/30/13 04/07/14 Discontinued Fluconazole 100 Mg PO WEEKLY For PREVENT INFECTION 12 Qty 06/30/1303/07 Discontinued Tamsulosin Hcl 0.4 Mg PO DAILY For DYSUREA 90 Qty 06/30/13 Active Fluticasone Propionate (Nasal) 2 [place] NA DAILY For CONGESTION 3 Qty Active [...] Qty 02/08/14 Active Fluticasone Propionate (Nasal) 1-2 [place] NA DAILY For STUFFY NOSE 1 Qty [...] For CHF 30 Qty 02/19/14 02/26/14 Discontinued [place]-3 Fatty Acids 1,000 Mg PO DAILY 03/06/14 [...] Qty 06/02/14 Active Fluticasone Propionate (Nasal) 1-2 [place] NA DAILY For STUFFY NOSE 1 Qty [...] F (96.0 - 99.9) Temperature (Calculated Celsius) 36.20399 degrees C Temperature (Calculated Celsius) 36.86859 degrees C (36.4 - 37.5) Temperature (Fahrenheit) 98.4 degrees F (96.0 - 99.9) Temperature Source Oral Temperature Source Axillary Temp 98.4 degrees F (96.0 - 99.9) Temperature (Calculated Celsius) 36.05837 degrees C Pulse Pulse Rate (adult) 102 [...] April 29, 2014 8:54am Lab Scanned Report [id number] Lactate Dehydrogenase September 28, 1998 4:10pm 152 [...] Synovial Fluid WBC September 27, 1998 12:00am 70979.0 /uL PH Target Cells August 05, 2001 [...] NONE SOURCE: URINE, CLEAN CATCH Urine Specific [place] June 15, 2014 12:35am 1.025 1.005-1.030 SOURCE: [...] Encounter Location Date/Time Discharged Inpatient Aidaeleni Benson [facility] 06/15/14 1:11am Registered Clinic [facility]ida B[facility] 06/14/14 11:24am Office Visit APARNA AGUILAR 06/14/14 11:00am Office Visit APARNA AGUILAR 06/02/14 11:15am Discharged Inpatient [place] Ramon [facility] 05/21/14 10:17pm Office Visit APARNA AGUILAR 04/26/14 8:45am Office Visit APARNA AGUILAR 04/20/14 1:30pm Registered Clinic Aida Benson [facility] 04/20/14 11:00am Office Visit APARNA AGUILAR 04/14/14 11:15am Office Visit APARNA AGUILAR 04/01/14 10:30am Registered Clinic Aida Benson [facility] 03/23/14 10:53am Office Visit APARNA AGUILAR 03/18/14 10:15am Office Visit APARNA AGUILAR 03/11/14 11:15am Registered Clinic Aida Benson [facility] 03/09/14 11:00am Discharged Inpatient [place] Ramon [facility] 03/06/14 8:25pm Office Visit APARNA AGUILAR 03/05/14 11:15am Office Visit APARNA R JEFF 03/01/14 9:15am Office Visit APARNA R JEFF 02/26/14 10:00am Registered Clinic Aida Benson [facility] 02/23/14 11:35am Discharged Inpatient Aida Benson [facility] 02/16/14 8:34pm Discharged Inpatient Aida Benson [facility] 02/12/14 2:30am Departed Emergency Room Aida Benson [facility] 02/08/14 10:15am Office Visit APARNA R JEFF 02/02/14 2:15pm Registered Clinic Aida Benson [facility] 02/02/14 1:31pm Office Visit APARNA R JEFF 01/21/14 10:00am Registered Clinic Aida Benson [facility] 01/12/14 11:43am Office Visit APARNA R JEFF 01/07/14 10:00am Registered Clinic Aida Benson [facility] 12/22/13 12:49pm Office Visit APARNA R JEFF 12/22/13 11:30am Office Visit APARNA R JEFF 12/10/13 11:00am Registered Recurring Aida Benson [facility] 12/01/13 3:00pm Registered Clinic Aida Benson [facility] 12/01/13 2:25pm Discharged Inpatient Aida Benson [facility] 11/27/13 2:30am Office Visit APARNA R JEFF 11/26/13 10:45am Office Visit APARNA R JEFF 11/12/13 11:30am Office Visit APARNA R JEFF 11/05/13 9:15am Discharged Inpatient Aida Benson [facility] 10/30/13 12:37pm Office Visit APARNA R JEFF 10/27/13 10:45am Office Visit APARNA R JEFF 10/06/13 11:15am Office Visit APARNA R JEFF 09/24/13 10:00am Office Visit APARNA R JEFF 09/08/13 10:30am Office Visit APARNA R JEFF 08/25/13 10:00am Office Visit APARNA R JEFF 08/18/13 11:00am Registered Clinic Aida Benson [facility] 08/11/13 2:45pm Office Visit APARNA [...]
--- OUTSIDE RECORDS SUMMARY | 2016-11-10 07:08 | XMS REPORT | Continuity of Care Document ---
Author Author [facility] Organization [facility] Address Unknown Phone Unavailable Care Team Providers Care Metallurgy Teacher Name Role Phone APARNA AGUILAR MD Unavailable [phone] Insurance Providers Payer Name Policy Number Subscriber Name Relationship Wps Medicare [id number] Amee Guillen Self / Same As Patient For Life [id number] Amee Guillen Self / Same As Patient Chief Complaint and Reason for Visit Chief Complaint Medical Problem Minor Reason for Visit [id number] Weakness [id number] Pneumonia Hyperkalemia Problems Medical Problems Problem Onset [...] 12/04/13 03/04/14 Discontinued Fluticasone Propionate (Nasal) 2 [place] NA DAILY 1 Qty 05/27/13 Discontinued Levofloxacin 500 Mg PO DAILY 10 Qty 05/29/13 07/31/13 Discontinued Magnesium Oxide 400 Mg PO TWICE A DAY 180 Qty 06/30/13 Active Fluconazole 100 Mg PO WEEKLY 12 Qty 06/30/13 Active Tamsulosin Hcl 0.4 Mg PO DAILY 90 Qty 06/30/13 Active Fluticasone Propionate (Nasal) 2 [place] NA DAILY 3 Qty 06/30/13 Active Minocycline [...] Qty 02/08/14 Active Fluticasone Propionate (Nasal) 1-2 [place] NA DAILY 1 Qty 02/12/14 Active Nitroglycerin [...] PO DAILY 30 Qty 02/19/14 02/26/14 Discontinued [place]-3 Fatty Acids 1,000 Mg PO DAILY 03/06/14 [...] Tolerated Physician Follow-up Appt #1: Dr Aguilar [phone] F/U Appt: One Week Discharge Instructions 1. [...] January 26, 2014 2:09pm Lab Scanned Report [id number] Lactate Dehydrogenase September 28, 1998 4:10pm 152 [...] Synovial Fluid WBC September 27, 1998 12:00am 77252.0 /uL PH Target Cells August 05, 2001 [...] 05SOURCE : URINE, CLEAN CATCH Urine Specific [place] March 06, 2014 6:15pm 1.015 1.005-1.030 SOURCE: [...] Encounter Location Date/Time Registered Clinic Aida Benson [facility] 03/09/14 11:00am Discharged Inpatient Aida Benson [facility] 03/06/14 8:25pm Office Visit APARNA AGUILAR 03/05/14 11:15am Office Visit APARNA AGUILAR 03/01/14 9:15am Office Visit APARNA AGUILAR 02/26/14 10:00am Registered Clinic Aida Benson [facility] 02/23/14 11:35am Discharged Inpatient Aidaeleni Benson [facility] 02/16/14 8:34pm Discharged Inpatient Aidaeleni Benson [facility] 02/12/14 2:30am Departed Emergency Room Johnson Iliana Marcelino [facility] 02/08/14 10:15am Office Visit APARNA AGUILAR 02/02/14 2:15pm Registered Clinic Aida Benson [facility] 02/02/14 1:31pm Office Visit APARNA AGUILAR 01/21/14 10:00am Registered Clinic Aida Benson [facility] 01/12/14 11:43am Office Visit APARNA AGUILAR 01/07/14 10:00am Registered Clinic Aida Benson [facility] 12/22/13 12:49pm Office Visit APARNA AGUILAR 12/22/13 11:30am Office Visit APARNA AGUILAR 12/10/13 11:00am Registered [facility] Aida Benson [facility] 12/01/13 3:00pm Registered Clinic Aida Benson [facility] 12/01/13 2:25pm Discharged Inpatient Aida Benson [facility] 11/27/13 2:30am Office Visit APARNA AGUILAR 11/26/13 10:45am Office Visit APARNA R JEFF 11/12/13 11:30am Office Visit APARNA R JEFF 11/05/13 9:15am Discharged Inpatient Aida Benson [facility] 10/30/13 12:37pm Office Visit APARNA R JEFF 10/27/13 10:45am Office Visit APARNA R JEFF 10/06/13 11:15am Office Visit APARNA R JEFF 09/24/13 10:00am Office Visit APARNA R JEFF 09/08/13 10:30am Office Visit APARNA R JEFF 08/25/13 10:00am Office Visit APARNA R JEFF 08/18/13 11:00am Registered Clinic Aida Benson [facility] 08/11/13 2:45pm Office Visit APARNA R JEFF 08/11/13 2:15pm Office Visit APARNA R JEFF 08/05/13 10:45am Office Visit APARNA R JEFF 07/31/13 1:00pm Office Visit APARNA R JEFF 07/30/13 10:05am Office Visit APARNA R JEFF 07/24/13 11:30am Office Visit APARNA R JEFF 07/14/13 10:30am Office Visit APARNA R JEFF 06/30/13 10:30am Registered Clinic Aida Benson [facility] 06/09/13 11:37am Office Visit APARNA R JEFF 06/09/13 11:30am Registered Clinic Aida Benson [facility] 06/02/13 11:35am Office Visit APARNA R JEFF 06/02/13 11:15am Discharged Inpatient Aida Benson [facility] 05/28/13 7:10am Office Visit APARNA R JEFF 05/27/13 1:00pm Discharged Inpatient Aida Benson [facility] 05/25/13 9:20am Office Visit APARNA R JEFF 05/19/13 11:15am Registered Clinic Aida Benson [facility] 05/12/13 1:36pm Office Visit APARNA R JEFF 05/12/13 1:15pm Office Visit APARNA R JEFF 05/06/13 11:15am Office Visit APARNA R JEFF 04/22/13 11:00am Office Visit APARNA R JEFF 04/09/13 10:30am Office Visit APARNA AGUILAR 03/26/13 11:00am Office Visit APARNA AGUILAR 03/12/13 10:15am
--- OUTSIDE RECORDS SUMMARY | 2016-11-10 07:08 | XMS REPORT | Continuity of Care Document ---
Author Author [facility] Organization [facility] Address Unknown Phone Unavailable Care Team Providers Care Portainer Operator Name Role Phone APARNA AGUILAR MD Unavailable [phone] Insurance Providers Payer Name Policy Number Subscriber Name Relationship Wps Medicare [id number] Amee Guillen 01 Self / Same As Patient For Life [id number] Amee Guillen Self / Same As Patient [...] 05/27/13 08/25/13 Discontinued Fluticasone Propionate (Nasal) 2 [place] NA DAILY 1 Qty 05/27/13 Discontinued Levofloxacin 500 Mg PO DAILY 10 Qty 05/29/13 07/31/13 Discontinued Magnesium Oxide 400 Mg PO TWICE A DAY For NUTRIENT REPLACEMENT 180 Qty 06/30/13 04/07/14 Discontinued Fluconazole 100 Mg PO WEEKLY For PREVENT INFECTION 12 Qty 06/30/1303/07 Discontinued Tamsulosin Hcl 0.4 Mg PO DAILY For DYSUREA 90 Qty 06/30/13 Active Fluticasone Propionate (Nasal) 2 [place] NA DAILY For CONGESTION 3 Qty Active [...] Qty 02/08/14 Active Fluticasone Propionate (Nasal) 1-2 [place] NA DAILY For STUFFY NOSE 1 Qty [...] For CHF 30 Qty 02/19/14 02/26/14 Discontinued [place]-3 Fatty Acids 1,000 Mg PO DAILY 03/06/14 [...] Qty 06/02/14 Active Fluticasone Propionate (Nasal) 1-2 [place] NA DAILY For STUFFY NOSE 1 Qty [...] F (96.0 - 99.9) Temperature (Calculated Celsius) 36.92374 degrees C Temperature (Calculated Celsius) 36.25572 degrees C (36.4 - 37.5) Temperature (Fahrenheit) 98.4 degrees F (96.0 - 99.9) Temperature Source Oral Temperature Source Axillary Temp 98.4 degrees F (96.0 - 99.9) Temperature (Calculated Celsius) 36.97127 degrees C Pulse Pulse Rate (adult) 69 [...] April 29, 2014 8:54am Lab Scanned Report [id number] Lactate Dehydrogenase September 28, 1998 4:10pm 152 [...] Synovial Fluid WBC September 27, 1998 12:00am 12623.0 /uL PH Target Cells August 05, 2001 [...] NONE SOURCE: URINE, CLEAN CATCH Urine Specific [place] June 15, 2014 12:35am 1.025 1.005-1.030 SOURCE: [...] Location Date/Time Registered Clinic Aida Benson [facility] 07/06/14 10:21am Office Visit APARNA Vitaliy JEFF 07/02/14 10:30am Discharged Inpatient Aida Benson [facility] 06/15/14 1:11am Registered Clinic Aida Benson [facility] 06/14/14 11:24am Office Visit APARNA R JEFF 06/14/14 11:00am Office Visit APARNA Vitaliy JEFF 06/02/14 11:15am Discharged Inpatient Aida Benson [facility] 05/21/14 10:17pm Office Visit APARNA R JEFF 04/26/14 8:45am Office Visit APARNA R JEFF 04/20/14 1:30pm Registered Clinic Aida Benson [facility] 04/20/14 11:00am Office Visit APARNA R JEFF 04/14/14 11:15am Office Visit APARNA R JEFF 04/01/14 10:30am Registered Clinic Aida Benson [facility] 03/23/14 10:53am Office Visit APARNA Burks JEFF 03/18/14 10:15am Office Visit APARNA R JEFF 03/11/14 11:15am Registered Clinic Aida Benson [facility] 03/09/14 11:00am Discharged Inpatient Aida Benson [facility] 03/06/14 8:25pm Office Visit APARNA R JEFF 03/05/14 11:15am Office Visit APARNA R JEFF 03/01/14 9:15am Office Visit APARNA Vitaliy JEFF 02/26/14 10:00am Registered Clinic Aida Benson [facility] 02/23/14 11:35am Discharged Inpatient Aida Benson [facility] 02/16/14 8:34pm Discharged Inpatient Aida Benson [facility] 02/12/14 2:30am Departed Emergency Room Aida Benson [facility] 02/08/14 10:15am Office Visit APARNA R JEFF 02/02/14 2:15pm Registered Clinic Aida Benson [facility] 02/02/14 1:31pm Office Visit APARNA R JEFF 01/21/14 10:00am Registered Clinic Aida Benson [facility] 01/12/14 11:43am Office Visit APARNA R JEFF 01/07/14 10:00am Registered Clinic Aida Benson [facility] 12/22/13 12:49pm Office Visit APARNA R JEFF 12/22/13 11:30am Office Visit APARNA R JEFF 12/10/13 11:00am Registered Recurring Aida Benson [facility] 12/01/13 3:00pm Registered Clinic Aida Benson [facility] 12/01/13 2:25pm Discharged Inpatient Aida Benson [facility] 11/27/13 2:30am Office Visit APARNA R JEFF 11/26/13 10:45am Office Visit APARNA R JEFF 11/12/13 11:30am Office Visit APARNA R JEFF 11/05/13 9:15am Discharged Inpatient Aida Benson [facility] 10/30/13 12:37pm Office Visit APARNA R JEFF 10/27/13 10:45am Office Visit APARNA R JEFF 10/06/13 11:15am Office Visit APARNA R JEFF 09/24/13 10:00am Office Visit APARNA R JEFF 09/08/13 10:30am Office Visit APARNA R JEFF 08/25/13 10:00am Office Visit APARNA R JEFF 08/18/13 11:00am Registered Clinic Aida Benson [facility] 08/11/13 2:45pm Office Visit APARNA R JEFF 08/11/13 2:15pm Office Visit APARNA R JEFF 08/05/13 10:45am Office Visit APARNA R JEFF 07/31/13 1:00pm Office Visit APARNA R JEFF 07/30/13 10:05am Office Visit APARNA R JEFF 07/24/13 11:30am Office Visit APARNA R JEFF 07/14/13 10:30am
--- OUTSIDE RECORDS SUMMARY | 2016-11-10 07:09 | XMS REPORT | Continuity of Care Document ---
Author Author [facility] Organization [facility] Address Unknown Phone Unavailable Care Team Providers Care Staffing Consultant Name Role Phone APARNA AGUILAR MD Unavailable [phone] Insurance Providers Payer Name Policy Number Subscriber Name Relationship Wps Medicare [id number] Amee Guillen 01 Self / Same As Patient For Life [id number] Amee Guillen Self / Same As Patient [...] 05/27/13 08/25/13 Discontinued Fluticasone Propionate (Nasal) 2 [place] NA DAILY 1 Qty 05/27/13 Discontinued Levofloxacin 500 Mg PO DAILY 10 Qty 05/29/13 07/31/13 Discontinued Magnesium Oxide 400 Mg PO TWICE A DAY 180 Qty 06/30/13 Active Fluconazole 100 Mg PO WEEKLY 12 Qty 06/30/13 Active Tamsulosin Hcl 0.4 Mg PO DAILY 90 Qty 06/30/13 Active Fluticasone Propionate (Nasal) 2 [place] NA DAILY 3 Qty 06/30/13 Active Minocycline [...] Qty 02/08/14 Active Fluticasone Propionate (Nasal) 1-2 [place] NA DAILY 1 Qty 02/12/14 Active Nitroglycerin [...] 2014 8:40am Memory Description Short term intact assisted intact February 15, 2014 1:23pm Cognitive Skills [...] - 99.9) 02/15/2014 10:55am Temperature (Calculated Celsius) 36.14026 degrees C 02/15/2014 10:55am Temperature Source Oral [...] January 26, 2014 2:09pm Lab Scanned Report [id number] Lactate Dehydrogenase September 28, 1998 4:10pm 152 [...] Synovial Fluid WBC September 27, 1998 12:00am 57245.0 /uL PH Target Cells August 05, 2001 [...] 05SOURCE : URINE, CLEAN CATCH Urine Specific [place] February 08, 2014 12:55pm 1.015 1.005-1.030 SOURCE: [...] Encounters Encounter [facility] Date[facility] Depart[facility] Emergency Room [facility] 02/08/14 10:15am Office Visit APARNA Vitaliy JEFF 02/02/14 2:15pm Registered Clinic [facility] 02/02/14 1:31pm Office Visit APARNA TURCIOSS 01/21/14 10:00am [facility] 01/12/14 11:43am Office Visit APARNA TURCIOSS 01/07/14 10:00am [facility] 12/22[facility]13 12:49pm Office Visit APARNA TURCIOSS 12/22/13 11:30am Office Visit APARNA TURCIOSS 12/10/13 11:00am [facility] 3:[facility]/01[facility]13 2:25pm [facility] 11/27/13 2:30am Office Visit APARNA TURCIOSS 11/26/13 10:45am Office Visit APARNA TURCIOSS 11/12/13 11:30am Office Visit APARNA TURCIOSS 11/05/13 9:15am Discharged Inpatient [facility] 10/30/13 12:37pm Office Visit APARNA R JEFF 10/27/13 10:45am Office Visit APARNA R JEFF 10/06/13 11:15am Office Visit APARNA R JEFF 09/24/13 10:00am Office Visit APARNA R JEFF 09/08/13 10:30am Office Visit APARNA R JEFF 08/25/13 10:00am Office Visit APARNA R JEFF 08/18/13 11:00am Registered Clinic Aida Benson [facility] 08/11/13 2:45pm Office Visit APARNA R JEFF 08/11/13 2:15pm Office Visit APARNA R JEFF 08/05/13 10:45am Office Visit APARNA R JEFF 07/31/13 1:00pm Office Visit APARNA R JEFF 07/30/13 10:05am Office Visit APARNA R JEFF 07/24/13 11:30am Office Visit APARNA R JEFF 07/14/13 10:30am Office Visit APARNA R JEFF 06/30/13 10:30am Registered Clinic Aida Benson [facility] 06/09/13 11:37am Office Visit APARNA R JEFF 06/09/13 11:30am Registered Clinic Aida Benson [facility] 06/02/13 11:35am Office Visit APARNA R JEFF 06/02/13 11:15am Discharged Inpatient Aida Benson [facility] 05/28/13 7:10am Office Visit APARNA R JEFF 05/27/13 1:00pm Discharged Inpatient Aida Benson [facility] 05/25/13 9:20am Office Visit APARNA R JEFF 05/19/13 11:15am Registered Clinic Aida Benson [facility] 05/12/13 1:36pm Office Visit APARNA R [...]
--- OUTSIDE RECORDS SUMMARY | 2016-11-10 07:10 | XMS REPORT | Continuity of Care Document ---
Author Author [facility] Organization [facility] Address Unknown Phone Unavailable Care Team Providers Care Retail Maintenance Technician Name Role Phone APARNA AGUILAR MD Unavailable [phone] Insurance Providers Payer Name Policy Number Subscriber Name Relationship Wps Medicare [id number] Amee Guillen 01 Self / Same As Patient For Life [id number] Amee Guillen Self / Same As Patient Advance Directives Directive Response Recorded Date/Time Patient Resuscitation Status Full Code 03/06/14 8:30pm Advance Directives Yes 03/06/14 8:30pm Living Will Yes 03/06/14 8:30pm Health Care Power of Yarn Tester Yes 03/06/14 8:30pm Chief Complaint and Reason [...] 05/27/13 08/25/13 Discontinued Fluticasone Propionate (Nasal) 2 [place] NA DAILY 1 Qty 05/27/13 Discontinued Levofloxacin 500 Mg PO DAILY 10 Qty 05/29/13 07/31/13 Discontinued Magnesium Oxide 400 Mg PO TWICE A DAY 180 Qty 06/30/13 Active Fluconazole 100 Mg PO WEEKLY 12 Qty 06/30/13 Active Tamsulosin Hcl 0.4 Mg PO DAILY 90 Qty 06/30/13 Active Fluticasone Propionate (Nasal) 2 [place] NA DAILY 3 Qty 06/30/13 Active Minocycline [...] Qty 02/08/14 Active Fluticasone Propionate (Nasal) 1-2 [place] NA DAILY 1 Qty 02/12/14 Active Nitroglycerin [...] PO DAILY 30 Qty 02/19/14 02/26/14 Discontinued [place]-3 Fatty Acids 1,000 Mg PO DAILY 03/06/14 [...] Tolerated Physician Follow-up Appt #1: Dr Aguilar [phone] F/U Appt: One Week Discharge Instructions 1. [...] Walker Denture(s) Returned: Lower Dentures Handouts Given: [employer] Home Equipment: Walker Plan of Care Discharge [...] 2014 11:00pm Memory Description Short term intact pharmaceutical analyst intact March 07, 2014 2:55pm Cognitive Skills [...] January 26, 2014 2:09pm Lab Scanned Report [id number] Lactate Dehydrogenase September 28, 1998 4:10pm 152 [...] Synovial Fluid WBC September 27, 1998 12:00am 95241.0 /uL PH Target Cells August 05, 2001 [...] 05SOURCE : URINE, CLEAN CATCH Urine Specific [place] March 06, 2014 6:15pm 1.015 1.005-1.030 SOURCE: [...] Encounter Location Date/Time Discharged Inpatient Aida B. [facility] 03/06/14 8:25pm Office Visit APARNA AGUILAR 03/05/14 11:15am Office Visit APARNA AGUILAR 03/01/14 9:15am Office Visit APARNA AGUILAR 02/26/14 10:00am Registered Clinic Aida Benson [facility] 02/23/14 11:35am Discharged Inpatient Aidaeleni Benson [facility] 02/16/14 8:34pm Discharged Inpatient Aida Benson [facility] 02/12/14 2:30am Departed Emergency Room Aidaeleni Benson [facility] 02/08/14 10:15am Office Visit APARNA R JEFF 02/02/14 2:15pm Registered Clinic Aida Benson [facility] 02/02/14 1:31pm Office Visit APARNA R JEFF 01/21/14 10:00am Registered Clinic Aida Navarro Marcelino [facility] 01/12/14 11:43am Office Visit APARNA R JEFF 01/07/14 10:00am Registered Clinic Aida Benson [facility] 12/22/13 12:49pm Office Visit APARNA R JEFF 12/22/13 11:30am Office Visit APARNA R JEFF 12/10/13 11:00am Registered Recurring Aidaeleni Benson [facility] 12/01/13 3:00pm Registered Clinic Aida BarrientosJermain Marcel[facility] 12/01/13 2:25pm Discharged Inpatient Aida Benson [facility] 11/27/13 2:30am Office Visit APARNA R JEFF 11/26/13 10:45am Office Visit APARNA R JEFF 11/12/13 11:30am Office Visit APARNA R JEFF 11/05/13 9:15am Discharged Inpatient Aida Benson [facility] 10/30/13 12:37pm Office Visit APARNA R JEFF 10/27/13 10:45am Office Visit APARNA R JEFF 10/06/13 11:15am Office Visit APARNA R JEFF 09/24/13 10:00am Office Visit APARNA R JEFF 09/08/13 10:30am Office Visit APARNA R JEFF 08/25/13 10:00am Office Visit APARNA R JEFF 08/18/13 11:00am Registered Clinic Aida Benson [facility] 08/11/13 2:45pm Office Visit APARNA R JEFF 08/11/13 2:15pm Office Visit APARNA R JEFF 08/05/13 10:45am Office Visit APARNA R JEFF 07/31/13 1:00pm Office Visit APARNA AGUILAR 07/30/13 10:05am Office Visit APARNA AGUILAR 07/24/13 11:30am Office Visit APARNA AGUILAR 07/14/13 10:30am Office Visit APARNA AGUILAR 06/30/13 10:30am Registered Clinic Aida Benson [facility] 06/09/13 11:37am Office Visit APARNA AGUILAR 06/09/13 11:30am Registered Clinic Aida Benson [facility] 06/02/13 11:35am Office Visit APARNA AGUILAR 06/02/13 11:15am Discharged Inpatient Aida Benson [facility] 05/28/13 7:10am Office Visit APARNA AGUILAR 05/27/13 1:00pm Discharged Inpatient Aida Benson [facility] 05/25/13 9:20am Office Visit APARNA AGUILAR 05/19/13 11:15am Registered Clinic Aida Benson [facility] 05/12/13 1:36pm Office Visit APARNA AGUILAR 05/12/13 [...]
--- OUTSIDE RECORDS SUMMARY | 2016-11-10 07:11 | XMS REPORT | Continuity of Care Document ---
Author Author [facility] Organization [facility] Address Unknown Phone Unavailable Care Team Providers Care Administrative Fellow Name Role Phone APARNA AGUILAR MD Unavailable [phone] Insurance Providers Payer Name Policy Number Subscriber Name Relationship Wps Medicare [id number] Amee Guillen Self / Same As Patient For Life [id number] Amee Guillen Self / Same As Patient Chief Complaint and Reason for Visit Chief Complaint Dyspnea Reason for Visit Dyspnea Hypoxia [id number] Problems Medical Problems Problem Onset Date Status [...] 05/27/13 08/25/13 Discontinued Fluticasone Propionate (Nasal) 2 [place] NA DAILY 1 Qty 05/27/13 Discontinued Levofloxacin 500 Mg PO DAILY 10 Qty 05/29/13 07/31/13 Discontinued Magnesium Oxide 400 Mg PO TWICE A DAY 180 Qty 06/30/13 Active Fluconazole 100 Mg PO WEEKLY 12 Qty 06/30/13 Active Tamsulosin Hcl 0.4 Mg PO DAILY 90 Qty 06/30/13 Active Fluticasone Propionate (Nasal) 2 [place] NA DAILY 3 Qty 3 month supply [...] Nursing Instructions Physician Follow-up Appointment: Dr Aguilar [phone] Call for Appointment: Yes Comment: F/U 1 [...] Synovial Fluid WBC September 27, 1998 12:00am 82004.0 /uL PH Target Cells August 05, 2001 [...] 05SOURCE : URINE, CLEAN CATCH Urine Specific [place] October 30, 2013 4:48pm 1.015 1.005-1.030 HAS [...] August 25, 2013 10:32am Lab Scanned Report [id number] Bedside Troponin I November 27, 2013 1:15am [...] procedures. Encounters Encounter Location Date/Time Registered Clinic [facility] 12/01/13 2:25pm Discharged Inpatient [facility] 11/27/13 2:30am Office Visit APARNA AGUILAR 11/26/13 10:45am Office Visit APARNA AGUILAR 11/12/13 11:30am Office Visit APARNA TURCIOSS 11/05/13 9:15am Discharged Inpatient [facility] 10/30/13 12:37pm Office Visit APARNA TURCIOSS 10/27/13 10:45am Office Visit APARNA TURCIOSS 10/06/13 11:15am Office Visit APARNA TURCIOSS 09/24/13 10:00am Office Visit APARNA TURCIOSS 09/08/13 10:30am Office Visit APARNA TURCIOSS 08/25/13 10:00am Office Visit APARNA TURCIOSS 08/18/13 11:00am Registered Clinic [facility] 08/11/13 2:45pm Office Visit APARNA R JEFF 08/11/13 2:15pm Office Visit APARNA R JEFF 08/05/13 10:45am Office Visit APARNA R JEFF 07/31/13 1:00pm Office Visit APARNA R JEFF 07/30/13 10:05am Office Visit APARNA R JEFF 07/24/13 11:30am Office Visit APARNA R JEFF 07/14/13 10:30am Office Visit APARNA R JEFF 06/30/13 10:30am Registered Clinic Aida Benson [facility] 06/09/13 11:37am Office Visit APARNA R JEFF 06/09/13 11:30am Registered Clinic Aida Benson [facility] 06/02/13 11:35am Office Visit APARNA R JEFF 06/02/13 11:15am Discharged Inpatient Aida Benson [facility] 05/28/13 7:10am Office Visit APARNA R JEFF 05/27/13 1:00pm Discharged Inpatient Aida Benson [facility] 05/25/13 9:20am Office Visit APARNA R JEFF 05/19/13 11:15am Registered Clinic Aida Benson [facility] 05/12/13 1:36pm Office Visit APARNA R [...] AGUILAR 12/16/12 10:30am Discharged Inpatient Aida Benson [facility] 12/08/12 10:20am Office Visit APARNA AGUILAR 12/03/12 9:00am
--- OUTSIDE RECORDS SUMMARY | 2016-11-10 07:11 | XMS REPORT | Continuity of Care Document ---
Author Author [facility] Organization [facility] Address Unknown Phone Unavailable Care Team Providers Care Finish Carpenter Name Role Phone APARNA AGUILAR MD Unavailable [phone] Insurance Providers Payer Name Policy Number Subscriber Name Relationship Wps Medicare [id number] Amee Guillen 01 Self / Same As Patient For Life [id number] Amee Guillen Self / Same As Patient [...] 05/27/13 08/25/13 Discontinued Fluticasone Propionate (Nasal) 2 [place] NA DAILY 1 Qty 05/27/13 Discontinued Levofloxacin 500 Mg PO DAILY 10 Qty 05/29/13 07/31/13 Discontinued Magnesium Oxide 400 Mg PO TWICE A DAY 180 Qty 01/07/14 Active Fluconazole 100 Mg PO WEEKLY 12 Qty 06/30/13 Active Tamsulosin Hcl 0.4 Mg PO DAILY 90 Qty 06/30/13 Active Fluticasone Propionate (Nasal) 2 [place] NA DAILY 3 Qty 3 month supply [...] Synovial Fluid WBC September 27, 1998 12:00am 32234.0 /uL PH Target Cells August 05, 2001 [...] 05SOURCE : URINE, CLEAN CATCH Urine Specific [place] October 30, 2013 4:48pm 1.015 1.005-1.030 HAS [...] August 25, 2013 10:32am Lab Scanned Report [id number] Bedside Troponin I November 27, 2013 1:15am [...] Date/Time Registered Clinic [facility] 01/12/14 11:43am Office Visit APARNA TURCIOSS 01/07/14 10:00am Registered Clinic [facility] 12/22/13 12:49pm Office Visit APARNA TURCIOSS 12/22/13 11:30am Office Visit APARNA TURCIOSS 12/10/13 11:[facility] 12/01/13 3:00pm Registered Clinic [facility] 12/01/13 2:25pm [facility] 2:30am Office Visit APARNA TURCIOSS 11/26/13 10:45am Office Visit APARNA DELUCAHNS 11/12/13 11:30am Office Visit APARNA Burks JEFF 11/05/13 9:15am Discharged Inpatient [facility] 10/30/13 12:37pm Office Visit APARNA Burks JEFF 10/27/13 10:45am Office Visit APARNA R JEFF 10/06/13 11:15am Office Visit APARNA R JEFF 09/24/13 10:00am Office Visit APARNA R JEFF 09/08/13 10:30am Office Visit APARNA R JEFF 08/25/13 10:00am Office Visit APARNA R JEFF 08/18/13 11:00am Registered Clinic Aida Navarro [facility] 08/11/13 2:45pm Office Visit APARNA DELUCAHNS 08/11/13 2:15pm Office Visit APARNA DELUCAHNS 08/05/13 10:45am Office Visit APARNA R JEFF 07/31/13 1:00pm Office Visit APARNA R JEFF 07/30/13 10:05am Office Visit APARNA R JEFF 07/24/13 11:30am Office Visit APARNA R JEFF 07/14/13 10:30am Office Visit APARNA R JEFF 06/30/13 10:30am Registered Clinic Aida [facility] 06/09/13 11:37am Office Visit APARNA R JEFF 06/09/13 11:30am Registered Clinic Aida [facility] 06/02/13 11:35am Office Visit APARNA R JEFF 06/02/13 11:15am Discharged Inpatient Aida Benson [facility] 05/28/13 7:10am Office Visit APARNA R JEFF 05/27/13 1:00pm Discharged Inpatient Aida [facility] 05/25/13 9:20am Office Visit APARNA R JEFF 05/19/13 11:15am Registered Clinic Aida [facility] 05/12/13 1:36pm Office Visit APARNA [...]
--- OUTSIDE RECORDS SUMMARY | 2016-11-10 07:13 | XMS REPORT | Continuity of Care Document ---
Author Author [facility] Organization [facility] Address Unknown Phone Unavailable Care Team Providers Care Machine Shop Supervisor Name Role Phone APARNA AGUILAR MD Unavailable [phone] Insurance Providers Payer Name Policy Number Subscriber Name Relationship Wps Medicare [id number] Amee Guillen 01 Self / Same As Patient For Life [id number] Amee Guillen Self / Same As Patient Advance Directives Directive Response Recorded Date/Time Patient Resuscitation Status Full Code 02/17/14 2:03am Advance Directives No 02/17/14 2:03am Living Will Yes 02/17/14 2:03am Health Care Power of Wet Milling Wheel Operator Yes 02/17/14 2:03am Chief Complaint and Reason [...] 05/27/13 08/25/13 Discontinued Fluticasone Propionate (Nasal) 2 [employer] NA DAILY 1 Qty 05/27/13 Discontinued Levofloxacin 500 Mg PO DAILY 10 Qty 05/29/13 07/31/13 Discontinued Magnesium Oxide 400 Mg PO TWICE A DAY 180 Qty 06/30/13 Active Fluconazole 100 Mg PO WEEKLY 12 Qty 06/30/13 Active Tamsulosin Hcl 0.4 Mg PO DAILY 90 Qty 06/30/13 Active Fluticasone Propionate (Nasal) 2 [employer] NA DAILY 3 Qty 06/30/13 Active Minocycline [...] Qty 02/08/14 Active Fluticasone Propionate (Nasal) 1-2 [employer] NA DAILY 1 Qty 02/12/14 Active Nitroglycerin [...] Tolerated Physician Follow-up Appt #1: Dr Aguilar [phone] F/U Appt: One Week Discharge Instructions 1. Follow up with Dr Aguilar within 1 week 2. Return to the ED for evaluation if any concerns. Signs/Symptoms -notify Doctor: Fever above 101 deg, Shortness of Breath, Chilling Nursing Instructions Physician Follow-up Appointment: Dr Aguilar [phone] Scheduled Date: 02/26/14 Scheduled Time: 10 am [...] 2014 10:25am Memory Description Short term intact superintendent terminal intact February 19, 2014 6:22pm Cognitive Skills [...] January 26, 2014 2:09pm Lab Scanned Report [id number] Lactate Dehydrogenase September 28, 1998 4:10pm 152 [...] Synovial Fluid WBC September 27, 1998 12:00am 26555.0 /uL PH Target Cells August 05, 2001 [...] 05SOURCE : URINE, CLEAN CATCH Urine Specific [place] February 16, 2014 10:54pm 1.010 1.005-1.030 HAS [...] procedures. Encounters Encounter Location Date/Time [facility] 8:34pm [facility] 02/12/14 2:30am Departed Emergency Room A[facility] 02/08/14 10:15am Office Visit APARNA R JEFF 02/02/14 2:15pm Registered Clinic Aida Benson [facility] 02/02/14 1:31pm Office Visit APARNA R JEFF 01/21/14 10:00am Registered Clinic Aida [facility] 01/12/14 11:43am Office Visit APARNA R JEFF 01/07/14 10:00am Registered Clinic [facility] 12/22/13 12:49pm Office Visit APARNA R JEFF 12/22/13 11:30am Office Visit APARNA R JEFF 12/10/13 11:00am Registered Recurring Aida Benson [facility] 12/01/13 3:00pm Registered Clinic [facility] 12/01/13 2:25pm Discharged Inpatient Aida Benson [facility] 11/27/13 2:30am Office Visit APARNA R JEFF 11/26/13 10:45am Office Visit APARNA R JEFF 11/12/13 11:30am Office Visit APARNA R JEFF 11/05/13 9:15am Discharged Inpatient Aida Benson [facility] 10/30/13 12:37pm Office Visit APARNA R JEFF 10/27/13 10:45am Office Visit APARNA R JEFF 10/06/13 11:15am Office Visit APARNA R JEFF 09/24/13 10:00am Office Visit APARNA R JEFF 09/08/13 10:30am Office Visit APARNA R JEFF 08/25/13 10:00am Office Visit APARNA R JEFF 08/18/13 11:00am Registered Clinic Aida Benson [facility] 08/11/13 2:45pm Office Visit APARNA R JEFF 08/11/13 2:15pm Office Visit APARNA R JEFF 08/05/13 10:45am Office Visit APARNA R JEFF 07/31/13 1:00pm Office Visit APARNA R JEFF 07/30/13 10:05am Office Visit APARNA R JEFF 07/24/13 11:30am Office Visit APARNA R JEFF 07/14/13 10:30am Office Visit APARNA R JEFF 06/30/13 10:30am Registered Clinic [facility]ida [facility] 06/09/13 11:37am Office Visit APARNA AGUILAR 06/09/13 11:30am Registered Clinic [facility]ida [facility] 06/02/13 11:35am Office Visit APARNA AGUILAR 06/02/13 11:15am Discharged Inpatient Aida [facility] 05/28/13 7:10am Office Visit APARNA AGUILAR 05/27/13 1:00pm Discharged Inpatient Aida [facility] 05/25/13 9:20am Office Visit APARNA AGUILAR 05/19/13 11:15am Registered Clinic Aida [facility] 05/12/13 1:36pm Office Visit APARNA AGUILAR [...]
--- OUTSIDE RECORDS SUMMARY | 2016-11-10 07:14 | XMS REPORT | Continuity of Care Document ---
Author Author [facility] Organization [facility] Address Unknown Phone Unavailable Care Team Providers Care Special Police Officer Name Role Phone APARNA AGUILAR MD Primary Care Physician [phone] Insurance Providers Payer Name Policy Number Subscriber Name Relationship Wps Medicare [id number] Amee Guillen 01 Self / Same As Patient For Life [id number] Amee Guillen Self / Same As Patient Chief Complaint and Reason for Visit Chief Complaint Fall Reason for Visit [id number] Problems Medical Problems Problem Onset Date Status [...] 05/27/13 08/25/13 Discontinued Fluticasone Propionate (Nasal) 2 [place] NA DAILY 1 Qty 05/27/13 Discontinued Levofloxacin [...] Qty 02/08/14 Active Fluticasone Propionate (Nasal) 1-2 [place] NA DAILY For STUFFY NOSE 1 Qty [...] F (96.0 - 99.9) Temperature (Calculated Celsius) 36.89805 degrees C Temperature Source Oral Temperature Source [...] October 28, 2014 2:17pm Lab Scanned Report [id number] Lactate Dehydrogenase September 28, 1998 4:10pm 152 [...] Synovial Fluid WBC September 27, 1998 12:00am 51501.0 /uL PH Target Cells August 05, 2001 [...] NONE SOURCE: URINE, CLEAN CATCH Urine Specific [place] November 30, 2014 9:55am 1.020 1.005-1.030 SOURCE [...] Encounters Encounter Location Date/Time Departed Emergency Room [facility] 11/30/14 9:15am Office Visit APARNA AGUILAR 11/22/14 9:45am Office Visit APARNA AGUILAR 11/05/14 11:30am Departed Emergency Room [facility] 11/03/14 11:29am Registered Clinic [facility] 10/26/14 10:38am Office Visit APARNA AGUILAR 10/26/14 10:00am Departed Emergency Room [facility] 10/21/14 10:14am Office Visit APARNA R JEFF 10/13/14 1:00pm Registered Clinic Aida [facility] 10/12/14 10:45am Registered Clinic Aida Benson [facility] 09/28/14 10:32am Office Visit APARNA R JEFF 09/28/14 10:15am Office Visit APARNA R JEFF 09/15/14 11:15am Office Visit APARNA R JEFF 09/01/14 10:45am Registered Clinic Aida Benson [facility] 08/31/14 10:54am Office Visit APARNA R JEFF 08/18/14 10:45am Office Visit APARNA R JEFF 08/10/14 10:30am Discharged Inpatient Aida Benson [facility] 08/04/14 4:51pm Office Visit APARNA R JEFF 08/03/14 11:15am Registered Clinic Aida Benson [facility] 08/03/14 10:26am Office Visit APARNA R JEFF 07/22/14 10:45am Discharged Inpatient Aida Benson [facility] 07/09/14 11:21am Office Visit APARNA R JEFF 07/08/14 9:00am Registered Clinic Aida Benson [facility] 07/06/14 10:21am Office Visit APARNA R JEFF 07/02/14 10:30am Discharged Inpatient Aida Benson [facility] 06/15/14 1:11am Registered Clinic Aida Benson [facility] 06/14/14 11:24am Office Visit APARNA R JEFF 06/14/14 11:00am Office Visit APARNA R JEFF 06/02/14 11:15am Discharged Inpatient Aida Benson [facility] 05/21/14 10:17pm Office Visit APARNA R JEFF 04/26/14 8:45am Office Visit APARNA R JEFF 04/20/14 1:30pm Registered Clinic Aida Benson [facility] 04/20/14 11:00am Office Visit APARNA R JEFF 04/14/14 11:15am Office Visit APARNA R JEFF 04/01/14 10:30am Registered Clinic Aida [facility] 03/23/14 10:53am Office Visit APARNA R JEFF 03/18/14 10:15am Office Visit APARNA AGUILAR 03/11/14 11:15am Registered Clinic Aida Benson [facility] 03/09/14 11:00am Discharged Inpatient Aida Benson [facility] 03/06/14 8:25pm Office Visit APARNA AGUILAR 03/05/14 11:15am Office Visit APARNA AGUILAR 03/01/14 9:15am Office Visit APARNA AGUILAR 02/26/14 10:00am Registered Clinic Aida Benson [facility] 02/23/14 11:35am Discharged Inpatient Aida Benson [facility] 02/16/14 8:34pm Discharged Inpatient Aida Benson [facility] 02/12/14 2:30am Departed Emergency Room Aida Benson [facility] 02/08/14 10:15am Office Visit APARNA AGUILAR 02/02/14 2:15pm Registered Clinic Aida Benson [facility] 02/02/14 1:31pm Office Visit APARNA AGUILAR 01/21/14 10:00am Registered Clinic Aida Benson [facility] 01/12/14 11:43am Office Visit APARNA AGUILAR 01/07/14 10:00am Registered Clinic Aida Benson [facility] 12/22/13 12:49pm Office Visit APARNA AGUILAR 12/22/13 11:30am Office Visit APARNA AGUILAR 12/10/13 11:00am Registered Recurring Aida Benson [facility] 12/01/13 3:00pm Registered Clinic Aida [facility] 12/01/13 2:25pm Recent Diagnosis
--- OUTSIDE RECORDS SUMMARY | 2016-11-10 07:15 | XMS REPORT | Continuity of Care Document ---
Author Author [facility] Organization [facility] Address Unknown Phone Unavailable Care Team Providers Care Senior Vice President And Chief Information Officer Name Role Phone APARNA AGUILAR MD Unavailable [phone] Insurance Providers Payer Name Policy Number Subscriber Name Relationship Wps Medicare [id number] Amee Guillen 01 Self / Same As Patient For Life [id number] Amee Guillen Self / Same As Patient Advance Directives Directive Response Recorded Date/Time Patient Resuscitation Status Full Code 08/04/14 3:11pm Advance Directives Yes 08/04/14 3:11pm Living Will Yes 08/04/14 3:11pm Health Care Power of Data Capture Clerk Yes 08/04/14 3:11pm Chief Complaint and Reason [...] 05/27/13 08/25/13 Discontinued Fluticasone Propionate (Nasal) 2 [place] NA DAILY 1 Qty 05/27/13 Discontinued Levofloxacin [...] Qty 02/08/14 Active Fluticasone Propionate (Nasal) 1-2 [place] NA DAILY For STUFFY NOSE 1 Qty [...] Tolerated Physician Follow-up Appt #1: Dr Aguilar [phone] F/U Appt: One Week Discharge Instructions 1. [...] F (96.0 - 99.9) Temperature (Calculated Celsius) 36.71339 degrees C Temperature (Calculated Celsius) 36.39786 degrees C (36.4 - 37.5) Temperature (Fahrenheit) 98.4 degrees F (96.0 - 99.9) Temperature Source Oral Temperature Source Oral Temp 98.4 degrees F (96.0 - 99.9) Temperature (Calculated Celsius) 36.98921 degrees C Pulse Pulse Rate (adult) 72 [...] April 29, 2014 8:54am Lab Scanned Report [id number] Lactate Dehydrogenase September 28, 1998 4:10pm 152 [...] Synovial Fluid WBC September 27, 1998 12:00am 96544.0 /uL PH Target Cells August 05, 2001 [...] NONE SOURCE: URINE, CLEAN CATCH Urine Specific [place] July 09, 2014 6:35am 1.015 1.005-1.030 SOURCE: [...] Encounter Location Date/Time Discharged Inpatient A[facility]i [facility] 08/04/14 4:51pm Office Visit APARNA Vitaliy AGUILAR 08/03/14 11:15am Registered Clinic Aida Benson [facility] 08/03/14 10:26am Office Visit APARNA AGUILAR 07/22/14 10:45am Discharged Inpatient Aidaeleni Benson [facility] 07/09/14 11:21am Office Visit APARNA Vitaliy AGUILAR 07/08/14 9:00am Registered Clinic Aida Benson [facility] 07/06/14 10:21am Office Visit APARNA Vitaliy JEFF 07/02/14 10:30am Discharged Inpatient Aida Benson [facility] 06/15/14 1:11am Registered Clinic Aida Benson [facility] 06/14/14 11:24am Office Visit APARNA R JEFF 06/14/14 11:00am Office Visit APARNA R JEFF 06/02/14 11:15am Discharged Inpatient Aida Benson [facility] 05/21/14 10:17pm Office Visit APARNA R JEFF 04/26/14 8:45am Office Visit APARNA R JEFF 04/20/14 1:30pm Registered Clinic Aida Benson [facility] 04/20/14 11:00am Office Visit APARNA R JEFF 04/14/14 11:15am Office Visit APARNA R JEFF 04/01/14 10:30am Registered Clinic Aida Benson [facility] 03/23/14 10:53am Office Visit APARNA R JEFF 03/18/14 10:15am Office Visit APARNA R JEFF 03/11/14 11:15am Registered Clinic Aida Benson [facility] 03/09/14 11:00am Discharged Inpatient Aida Benson [facility] 03/06/14 8:25pm Office Visit APARNA R JEFF 03/05/14 11:15am Office Visit APARNA R JEFF 03/01/14 9:15am Office Visit APARNA R JEFF 02/26/14 10:00am Registered Clinic Aida Benson [facility] 02/23/14 11:35am Discharged Inpatient Aida Benson [facility] 02/16/14 8:34pm Discharged Inpatient Aida Benson [facility] 02/12/14 2:30am Departed Emergency Room Aida Benson [facility] 02/08/14 10:15am Office Visit APARNA R JEFF 02/02/14 2:15pm Registered Clinic Aida Benson [facility] 02/02/14 1:31pm Office Visit APARNA R JEFF 01/21/14 10:00am Registered Clinic Aida Benson [facility] 01/12/14 11:43am Office Visit APARNA R JEFF 01/07/14 10:00am Registered Clinic Aida [facility] 12/22/13 12:49pm Office Visit APARNA TURCIOSS 12/22/13 11:30am Office Visit APARNA TURCIOSS 12/10/13 11:00am Registered Recurring Aida Benson [facility] 12/01/13 3:00pm Registered Clinic Aida Benson [facility] 12/01/13 2:25pm Discharged Inpatient Aida Benson [facility] 11/27/13 2:30am Office Visit APARNA TURCIOSS 11/26/13 10:45am Office Visit APARNA TURCIOSS 11/12/13 11:30am Office Visit APARNA TURCIOSS 11/05/13 9:15am Discharged Inpatient Aida Benson [facility] 10/30/13 12:37pm Office Visit APARNA DELUCAHNS 10/27/13 10:45am Office Visit APARNA DELUCAHNS 10/06/13 11:15am Office Visit APARNA DELUCAHNS 09/24/13 10:00am Office Visit APARNA DELUCAHNS 09/08/13 10:30am Office Visit APARNA R JEFF 08/25/13 10:00am Office Visit APARNA DELUCAHNS 08/18/13 11:00am Registered Clinic Aida Benson [facility] 08/11/13 2:45pm Office Visit APARNA TURCIOSS 08/11/13 2:15pm Recent Diagnosis Benign essential hypertension Diabetes mellitus Congestive heart failure (CHF) Chronic pain Hypotension Hx of diabetes mellitus Cellulitis
--- OUTSIDE RECORDS SUMMARY | 2016-11-10 07:17 | XMS REPORT | Continuity of Care Document ---
Author Author [facility] Organization [facility] Address Unknown Phone Unavailable Care Team Providers Care Roll Edge Machine Operator Name Role Phone APARNA AGUILAR MD Unavailable [phone] Insurance Providers Payer Name Policy Number Subscriber Name Relationship Wps Medicare [id number] Amee Guillen 01 Self / Same As Patient For Life [id number] Amee Guillen Self / Same As Patient [...] 05/27/13 08/25/13 Discontinued Fluticasone Propionate (Nasal) 2 [place] NA DAILY 1 Qty 05/27/13 Discontinued Levofloxacin 500 Mg PO DAILY 10 Qty 05/29/13 07/31/13 Discontinued Magnesium Oxide 400 Mg PO TWICE A DAY 180 Qty 01/07/14 Active Fluconazole 100 Mg PO WEEKLY 12 Qty 06/30/13 Active Tamsulosin Hcl 0.4 Mg PO DAILY 90 Qty 06/30/13 Active Fluticasone Propionate (Nasal) 2 [place] NA DAILY 3 Qty 3 month supply [...] January 26, 2014 2:09pm Lab Scanned Report [id number] Lactate Dehydrogenase September 28, 1998 4:10pm 152 [...] Synovial Fluid WBC September 27, 1998 12:00am 05282.0 /uL PH Target Cells August 05, 2001 [...] 05SOURCE : URINE, CLEAN CATCH Urine Specific [place] October 30, 2013 4:48pm 1.015 1.005-1.030 HAS [...] AGUILAR 02/02/14 2:15pm Registered Clinic Aida Benson [facility] 02/02/14 1:31pm Office Visit APARNA AGUILAR 01/21/14 10:00am Registered Clinic Aida [facility] 01/12/14 11:43am Office Visit APARNA AGUILAR 01/07/14 10:00am Registered Clinic Aida [facility] 12/22/13 12:49pm Office Visit APARNA TURCIOSS 12/22/13 11:30am Office Visit APARNA TURCIOSS 12/10/13 11:00am Registered [facility] 12/01/13 3:00pm Registered Clinic Aida Benson [facility] 12/01/13 2:25pm Discharged Inpatient Aida Benson [facility] 11/27/13 2:30am Office Visit APARNA TURCIOSS 11/26/13 10:45am Office Visit APARNA TURCIOSS 11/12/13 11:30am Office Visit APARNA TURCIOSS 11/05/13 9:15am Discharged Inpatient Aida Benson [facility] 10/30/13 12:37pm Office Visit APARNA TRUCIOSS 10/27/13 10:45am Office Visit APARNA TURCIOSS 10/06/13 11:15am Office Visit APARNA TURCIOSS 09/24/13 10:00am Office Visit APARNA TURCIOSS 09/08/13 10:30am Office Visit APARNA R JEFF 08/25/13 10:00am Office Visit APARNA R JEFF 08/18/13 11:00am Registered Clinic Aida [facility] 08/11/13 2:45pm Office Visit APARNA R JEFF 08/11/13 2:15pm Office Visit APARNA R JEFF 08/05/13 10:45am Office Visit APARNA R JEFF 07/31/13 1:00pm Office Visit APARNA R JEFF 07/30/13 10:05am Office Visit APARNA R JEFF 07/24/13 11:30am Office Visit APARNA R JEFF 07/14/13 10:30am Office Visit APARNA R JEFF 06/30/13 10:30am Registered Clinic Aida [facility] 06/09/13 11:37am Office Visit APARNA R JEFF 06/09/13 11:30am Registered Clinic Aida [facility] 06/02/13 11:35am Office Visit APARNA R JEFF 06/02/13 11:15am Discharged Inpatient Aida Benson [facility] 05/28/13 7:10am Office Visit APARNA R JEFF 05/27/13 1:00pm Discharged Inpatient Aiad Benson [facility] 05/25/13 9:20am Office Visit APARNA R JEFF 05/19/13 11:15am Registered Clinic Aida Benson [facility] 05/12/13 1:36pm Office Visit APARNA R [...]
--- OUTSIDE RECORDS SUMMARY | 2016-11-10 07:19 | XMS REPORT | Continuity of Care Document ---
Author Author [facility] Organization [facility] Address Unknown Phone Unavailable Care Team Providers Care Mixer Tender Name Role Phone APARNA AGUILAR MD Unavailable [phone] Insurance Providers Payer Name Policy Number Subscriber Name Relationship Wps Medicare [id number] Amee Guillen 01 Self / Same As Patient For Life [id number] Amee Guillen Self / Same As Patient [...] 05/27/13 08/25/13 Discontinued Fluticasone Propionate (Nasal) 2 [place] NA DAILY 1 Qty 05/27/13 Discontinued Levofloxacin [...] Qty 02/08/14 Active Fluticasone Propionate (Nasal) 1-2 [place] NA DAILY For STUFFY NOSE 1 Qty [...] F (96.0 - 99.9) Temperature (Calculated Celsius) 36.76502 degrees C Temperature (Calculated Celsius) 36.47055 degrees C (36.4 - 37.5) Temperature (Fahrenheit) 98.4 degrees F (96.0 - 99.9) Temperature Source Oral Temperature Source Oral Temp 98.4 degrees F (96.0 - 99.9) Temperature (Calculated Celsius) 36.57433 degrees C Pulse Pulse Rate (adult) 105 [...] April 29, 2014 8:54am Lab Scanned Report [id number] Lactate Dehydrogenase September 28, 1998 4:10pm 152 [...] Synovial Fluid WBC September 27, 1998 12:00am 18061.0 /uL PH Target Cells August 05, 2001 [...] NONE SOURCE: URINE, CLEAN CATCH Urine Specific [place] July 09, 2014 6:35am 1.015 1.005-1.030 SOURCE: [...] Encounter Location Date/Time Registered Clinic Aida [facility] 09/28/14 10:32am Office Visit APARNA TURCIOSS 09/28/14 10:15am Office Visit APARNA TURCIOSS 09/15/14 11:15am Office Visit APARNA TURCIOSS 09/01/14 10:45am Registered Clinic Aida Benson [facility] 08/31/14 10:54am Office Visit APARNA TURCIOSS 08/18/14 10:45am Office Visit APARNA TURCIOSS 08/10/14 10:30am Discharged Inpatient Aidaeleni Benson [facility] 08/04/14 4:51pm Office Visit APARNA TURCIOSS 08/03/14 11:15am Registered Clinic Aidaeleni Benson [facility] 08/03/14 10:26am Office Visit APARNA TURCIOSS 07/22/14 10:45am Discharged Inpatient Aidaeleni Benson [facility] 07/09/14 11:21am Office Visit APARNA TURCIOSS 07/08/14 9:00am Registered Clinic Aida Benson [facility] 07/06/14 10:21am Office Visit APARNA TURCIOSS 07/02/14 10:30am Discharged Inpatient Aidaeleni Benson [facility] 06/15/14 1:11am Registered Clinic Aida Benson [facility] 06/14/14 11:24am Office Visit APARNA TURCIOSS 06/14/14 11:00am Office Visit APARNA TURCIOSS 06/02/14 11:15am Discharged Inpatient Aidaeleni Benson [facility] 05/21/14 10:17pm Office Visit APARNA TURCIOSS 04/26/14 8:45am Office Visit APARNA TURCIOSS 04/20/14 1:30pm Registered Clinic Aida Benson [facility] 04/20/14 11:00am Office Visit APARNA R JEFF 04/14/14 11:15am Office Visit APARNA R JEFF 04/01/14 10:30am Registered Clinic Aida Benson [facility] 03/23/14 10:53am Office Visit APARNA R JEFF 03/18/14 10:15am Office Visit APARNA R JEFF 03/11/14 11:15am Registered Clinic Aida Benson [facility] 03/09/14 11:00am Discharged Inpatient Aida Benson [facility] 03/06/14 8:25pm Office Visit APARNA R JEFF 03/05/14 11:15am Office Visit APARNA R JEFF 03/01/14 9:15am Office Visit APARNA R JEFF 02/26/14 10:00am Registered Clinic Aida Benson [facility] 02/23/14 11:35am Discharged Inpatient Aida Benson [facility] 02/16/14 8:34pm Discharged Inpatient Aida Benson [facility] 02/12/14 2:30am Departed Emergency Room Aidaeleni Benson [facility] 02/08/14 10:15am Office Visit APARNA R JEFF 02/02/14 2:15pm Registered Clinic Aida Benson [facility] 02/02/14 1:31pm Office Visit APARNA R JEFF 01/21/14 10:00am Registered Clinic Aida Benson [facility] 01/12/14 11:43am Office Visit APARNA R JEFF 01/07/14 10:00am Registered Clinic Aida Benson [facility] 12/22/13 12:49pm Office Visit APARNA R JEFF 12/22/13 11:30am Office Visit APARNA R JEFF 12/10/13 11:00am Registered Recurring Aida Benson [facility] 12/01/13 3:00pm Registered Clinic Aida Benson [facility] 12/01/13 2:25pm Discharged Inpatient Aida Benson [facility] 11/27/13 2:30am Office Visit APARNA R JEFF 11/26/13 10:45am Office Visit APARNA R JEFF 11/12/13 11:30am Office Visit APARNA R JEFF 11/05/13 9:15am Discharged Inpatient Aida Benson [facility] 10/30/13 12:37pm Office Visit APARNA AGUILAR 10/27/13 10:45am Office Visit APARNA AGUILAR 10/06/13 11:15am
--- OUTSIDE RECORDS SUMMARY | 2016-11-10 07:20 | XMS REPORT | Continuity of Care Document ---
Author Author [facility] Organization [facility] Address Unknown Phone Unavailable Care Team Providers Care Senior Planning Analyst Name Role Phone APARNA AGUILAR MD Unavailable [phone] Insurance Providers Payer Name Policy Number Subscriber Name Relationship Wps Medicare [id number] Amee Guillen Self / Same As Patient For Life [id number] Amee Guillen Self / Same As Patient Chief Complaint and Reason for Visit Chief Complaint Weakness Reason for Visit Contusion of back wall of thorax [id number] Problems Medical Problems Problem Onset Date Status [...] 08/25/13 Discontinued Fluticasone Propionate (Nasal) 2 [place] NA DAILY 1 Qty 05/27/13 Discontinued Levofloxacin 500 Mg PO DAILY 10 Qty 05/29/13 07/31/13 Discontinued Magnesium Oxide 400 Mg PO TWICE A DAY 180 Qty 06/30/13 Active Fluconazole 100 Mg PO WEEKLY 12 Qty 06/30/13 Active Tamsulosin Hcl 0.4 Mg PO DAILY 90 Qty 06/30/13 Active Fluticasone Propionate (Nasal) 2 [place] NA DAILY 3 Qty 06/30/13 Active Minocycline [...] Encounters Encounter Location Date/Time Departed Emergency Room [facility] 02/08/14 10:15am Office Visit APARNA AGUILAR 02/02/14 2:15pm [facility] 1:31pm Office Visit APARNA R JEFF 01/21/14 10:00am Registered Clinic Aida Benson [facility] 01/12/14 11:43am Office Visit APARNA R JEFF 01/07/14 10:00am Registered Clinic Aida Benson [facility] 12/22/13 12:49pm Office Visit APARNA R JEFF 12/22/13 11:30am Office Visit APARNA R JEFF 12/10/13 11:00am Registered Recurring Aida Benson [facility] 12/01/13 3:00pm Registered Clinic Aida Benson [facility] 12/01/13 2:25pm Discharged Inpatient Aida Benson [facility] 11/27/13 2:30am Office Visit APARNA R JEFF 11/26/13 10:45am Office Visit APARNA R JEFF 11/12/13 11:30am Office Visit APARNA R JEFF 11/05/13 9:15am Discharged Inpatient Aida Benson [facility] 10/30/13 12:37pm Office Visit APARNA R JEFF 10/27/13 10:45am Office Visit APARNA R JEFF 10/06/13 11:15am Office Visit APARNA R JEFF 09/24/13 10:00am Office Visit APARNA R JEFF 09/08/13 10:30am Office Visit APARNA R JEFF 08/25/13 10:00am Office Visit APARNA R JEFF 08/18/13 11:00am Registered Clinic Aida Benson [facility] 08/11/13 2:45pm Office Visit APARNA R JEFF 08/11/13 2:15pm Office Visit APARNA R EJFF 08/05/13 10:45am Office Visit APARNA R JEFF 07/31/13 1:00pm Office Visit APARNA R JEFF 07/30/13 10:05am Office Visit APARNA R JEFF 07/24/13 11:30am Office Visit APARNA R JEFF 07/14/13 10:30am Office Visit APARNA R JEFF 06/30/13 10:30am Registered Clinic Aida Benson [facility] 06/09/13 11:37am Office Visit APARNA R JEFF 06/09/13 11:30am Registered Clinic Aida Benson [facility] 06/02/13 11:35am Office Visit APARNA AGUILAR 06/02/13 11:15am Discharged Inpatient Aida Benson [facility] 05/28/13 7:10am Office Visit APARNA AGUILAR 05/27/13 1:00pm Discharged Inpatient Aida Benson [facility] 05/25/13 9:20am Office Visit APARNA AGUILAR 05/19/13 11:15am Registered Clinic Aida Benson [facility] 05/12/13 1:36pm Office Visit APARNA AGUILAR 05/12/13 1:15pm Office Visit APARNA AGUILAR 05/06/13 11:15am Office Visit APARNA AGUILAR 04/22/13 11:00am Office Visit APARNA AGUILAR 04/09/13 10:30am Office Visit AAPRNA AGUILAR 03/26/13 11:00am Office Visit APARNA AGUILAR 03/12/13 10:15am Office Visit APARNA AGUILAR 03/04/13 10:45am Office Visit APARNA AGUILAR 02/26/13 10:30am Office Visit APARNA AGUILAR 02/18/13 10:45am Recent Diagnosis
--- OUTSIDE RECORDS SUMMARY | 2016-11-10 07:20 | XMS REPORT | Continuity of Care Document ---
Author Author [facility] Organization [facility] Address Unknown Phone Unavailable Care Team Providers Care Picture Framer Name Role Phone APARNA AGUILAR MD Unavailable [phone] Insurance Providers Payer Name Policy Number Subscriber Name Relationship Wps Medicare [id number] Amee Guillen 01 Self / Same As Patient For Life [id number] Amee Guillen Self / Same As Patient [...] 08/25/13 Discontinued Fluticasone Propionate (Nasal) 2 [place] NA DAILY 1 Qty 05/27/13 Discontinued Levofloxacin [...] 02/08/14 Active Fluticasone Propionate (Nasal) 1-2 [place] NA DAILY For STUFFY NOSE 1 Qty [...] F (96.0 - 99.9) Temperature (Calculated Celsius) 36.49300 degrees C Temperature (Calculated Celsius) 36.56402 degrees C (36.4 - 37.5) Temperature (Fahrenheit) 98.4 degrees F (96.0 - 99.9) Temperature Source Oral Temperature Source Oral Temp 98.4 degrees F (96.0 - 99.9) Temperature (Calculated Celsius) 36.12360 degrees C Pulse Pulse Rate (adult) 105 [...] April 29, 2014 8:54am Lab Scanned Report [id number] Lactate Dehydrogenase September 28, 1998 4:10pm 152 [...] Synovial Fluid WBC September 27, 1998 12:00am 78637.0 /uL PH Target Cells August 05, 2001 [...] NONE SOURCE: URINE, CLEAN CATCH Urine Specific [place] July 09, 2014 6:35am 1.015 1.005-1.030 SOURCE: [...] Encounter Location Date/Time Registered Clinic Aida Benson [facility] 08/31/14 10:54am Office Visit APARNA TURCIOSS 08/18/14 10:45am Office Visit APARNA TURCIOSS 08/10/14 10:30am Discharged Inpatient Aidaeleni Benson [facility] 08/04/14 4:51pm Office Visit APARNA TURCIOSS 08/03/14 11:15am Registered Clinic Aida Benson [facility] 08/03/14 10:26am Office Visit APARNA TURCIOSS 07/22/14 10:45am Discharged Inpatient Aidaeleni Benson [facility] 07/09/14 11:21am Office Visit APARNA TURCIOSS 07/08/14 9:00am Registered Clinic Aida Benson [facility] 07/06/14 10:21am Office Visit APARNA TURCIOSS 07/02/14 10:30am Discharged Inpatient Aidaeleni Benson [facility] 06/15/14 1:11am Registered Clinic Aida Benson [facility] 06/14/14 11:24am Office Visit APARNA TURCIOSS 06/14/14 11:00am Office Visit APARNA TURCIOSS 06/02/14 11:15am Discharged Inpatient Aidaeleni Benson [facility] 05/21/14 10:17pm Office Visit APARNA TURCIOSS 04/26/14 8:45am Office Visit APARNA TURCIOSS 04/20/14 1:30pm Registered Clinic Aida Benson [facility] 04/20/14 11:00am Office Visit APARNA TURCIOSS 04/14/14 11:15am Office Visit APARNA DELUCAHNS 04/01/14 10:30am Registered Clinic Aida Benson [facility] 03/23/14 10:53am Office Visit APARNA TURCIOSS 03/18/14 10:15am Office Visit APARNA DELUCAHNS 03/11/14 11:15am Registered Clinic Aida Benson [facility] 03/09/14 11:00am Discharged Inpatient Aida Benson [facility] 03/06/14 8:25pm Office Visit APARNA R JEFF 03/05/14 11:15am Office Visit APARNA R JEFF 03/01/14 9:15am Office Visit APARNA R JEFF 02/26/14 10:00am Registered Clinic Aida Benson [facility] 02/23/14 11:35am Discharged Inpatient Aida Benson [facility] 02/16/14 8:34pm Discharged Inpatient Aida Benson [facility] 02/12/14 2:30am Departed Emergency Room Aida Benson [facility] 02/08/14 10:15am Office Visit APARNA R JEFF 02/02/14 2:15pm Registered Clinic Aida Benson [facility] 02/02/14 1:31pm Office Visit APARNA R JEFF 01/21/14 10:00am Registered Clinic Aida Benson [facility] 01/12/14 11:43am Office Visit APARNA R JEFF 01/07/14 10:00am Registered Clinic Aida Benson [facility] 12/22/13 12:49pm Office Visit APARNA R JEFF 12/22/13 11:30am Office Visit APARNA R JEFF 12/10/13 11:00am Registered Recurring Aida Benson [facility] 12/01/13 3:00pm Registered Clinic Aida Benson [facility] 12/01/13 2:25pm Discharged Inpatient Aida Benson [facility] 11/27/13 2:30am Office Visit APARNA R JEFF 11/26/13 10:45am Office Visit APARNA R JEFF 11/12/13 11:30am Office Visit APARNA R JEFF 11/05/13 9:15am Discharged Inpatient Aida Benson [facility] 10/30/13 12:37pm Office Visit APARNA R JEFF 10/27/13 10:45am Office Visit APARNA R JEFF 10/06/13 11:15am Office Visit APARNA R JEFF 09/24/13 10:00am Office Visit APARNA R JEFF 09/08/13 10:30am
--- OUTSIDE RECORDS SUMMARY | 2016-11-10 07:22 | XMS REPORT | Continuity of Care Document ---
Author Author [facility] Organization [facility] Address Unknown Phone Unavailable Care Team Providers Care Answering Service Operator Name Role Phone APARNA AGUILAR MD Unavailable [phone] Insurance Providers Payer Name Policy Number Subscriber Name Relationship Wps Medicare [id number] Amee Guillen 01 Self / Same As Patient For Life [id number] Amee Guillen Self / Same As Patient [...] 05/27/13 08/25/13 Discontinued Fluticasone Propionate (Nasal) 2 [place] NA DAILY 1 Qty 05/27/13 Discontinued Levofloxacin [...] Qty 02/08/14 Active Fluticasone Propionate (Nasal) 1-2 [place] NA DAILY For STUFFY NOSE 1 Qty [...] F (96.0 - 99.9) Temperature (Calculated Celsius) 37.07737 degrees C Temperature (Calculated Celsius) 36.10313 degrees C (36.4 - 37.5) Temperature (Fahrenheit) 98.4 degrees F (96.0 - 99.9) Temperature Source Oral Temperature Source Oral Temp 98.4 degrees F (96.0 - 99.9) Temperature (Calculated Celsius) 36.80340 degrees C Pulse Pulse Rate (adult) 80 [...] April 29, 2014 8:54am Lab Scanned Report [id number] Lactate Dehydrogenase September 28, 1998 4:10pm 152 [...] Synovial Fluid WBC September 27, 1998 12:00am 10104.0 /uL PH Target Cells August 05, 2001 [...] NONE SOURCE: URINE, CLEAN CATCH Urine Specific [place] July 09, 2014 6:35am 1.015 1.005-1.030 SOURCE: [...] AGUILAR 08/03/14 11:15am Registered Clinic Aida Benson [facility] 08/03/14 10:26am Office Visit APARNA AGUILAR 07/22/14 10:45am Discharged Inpatient Aida Benson [facility] 07/09/14 11:21am Office Visit APARNA Vitaliy JEFF 07/08/14 9:00am Registered Clinic Aida Benson [facility] 07/06/14 10:21am Office Visit APARNA R JEFF 07/02/14 10:30am Discharged Inpatient Aida Benson [facility] 06/15/14 1:11am Registered Clinic Aida Benson [facility] 06/14/14 11:24am Office Visit APARNA R JEFF 06/14/14 11:00am Office Visit APARNA R JEFF 06/02/14 11:15am Discharged Inpatient Aida Benson [facility] 05/21/14 10:17pm Office Visit APARNA R JEFF 04/26/14 8:45am Office Visit APARNA R JEFF 04/20/14 1:30pm Registered Clinic Aida Benson [facility] 04/20/14 11:00am Office Visit APARNA Burks JEFF 04/14/14 11:15am Office Visit APARNA DELUCAHNS 04/01/14 10:30am Registered Clinic Aida Benson [facility] 03/23/14 10:53am Office Visit APARNA R JEFF 03/18/14 10:15am Office Visit APARNA R JEFF 03/11/14 11:15am Registered Clinic Aida Benson [facility] 03/09/14 11:00am Discharged Inpatient Aidaeleni Benson [facility] 03/06/14 8:25pm Office Visit APARNA R JEFF 03/05/14 11:15am Office Visit APARNA R JEFF 03/01/14 9:15am Office Visit APARNA R JEFF 02/26/14 10:00am Registered Clinic Aida Benson [facility] 02/23/14 11:35am Discharged Inpatient Aida Benson [facility] 02/16/14 8:34pm Discharged Inpatient Aida Benson [facility] 02/12/14 2:30am Departed Emergency Room Aida Benson [facility] 02/08/14 10:15am Office Visit APARNA R JEFF 02/02/14 2:15pm Registered Clinic Aida Benson [facility] 02/02/14 1:31pm Office Visit APARNA Vitaliy DEULCAJEFF 01/21/14 10:00am Registered Clinic Aida Benson [facility] 01/12/14 11:43am Office Visit APARNA R JEFF 01/07/14 10:00am Registered Clinic Aida Benson [facility] 12/22/13 12:49pm Office Visit APARNA R JEFF 12/22/13 11:30am Office Visit APARNA R JEFF 12/10/13 11:00am Registered Recurring Aida Benson [facility] 12/01/13 3:00pm Registered Clinic Aida Benson [facility] 12/01/13 2:25pm Discharged Inpatient Aida Benson [facility] 11/27/13 2:30am Office Visit APARNA R JEFF 11/26/13 10:45am Office Visit APARNA R JEFF 11/12/13 11:30am Office Visit APARNA R JEFF 11/05/13 9:15am Discharged Inpatient Aida Benson [facility] 10/30/13 12:37pm Office Visit APARNA R JEFF 10/27/13 10:45am Office Visit APARNA R JEFF 10/06/13 11:15am Office Visit APARNA R JEFF 09/24/13 10:00am Office Visit APARNA R JEFF 09/08/13 10:30am Office Visit APARNA R JEFF 08/25/13 10:00am Office Visit APARNA R JEFF 08/18/13 11:00am Registered Clinic Aida Benson [facility] 08/11/13 2:45pm Office Visit APARNA R JEFF 08/11/13 2:15pm Office Visit APARNA R JEFF 08/05/13 10:45am
--- OUTSIDE RECORDS SUMMARY | 2016-11-10 07:23 | XMS REPORT | Continuity of Care Document ---
Author Author [facility] Organization [facility] Address Unknown Phone Unavailable Care Team Providers Care Pharmacy Technology Instructor Name Role Phone APRANA AGUILAR MD Unavailable [phone] Insurance Providers Payer Name Policy Number Subscriber Name Relationship Wps Medicare [id number] Amee Guillen 01 Self / Same As Patient For Life [id number] Amee Guillen Self / Same As Patient Advance Directives Directive Response Recorded Date/Time Patient Resuscitation Status DNR 07/09/14 9:09am Advance Directives Yes 07/09/14 9:09am Living Will Yes 07/09/14 9:09am Health Care Power of Contracts Specialist Yes 07/09/14 9:09am Chief Complaint and Reason [...] 05/27/13 08/25/13 Discontinued Fluticasone Propionate (Nasal) 2 [place] NA DAILY 1 Qty 05/27/13 Discontinued Levofloxacin [...] Qty 02/08/14 Active Fluticasone Propionate (Nasal) 1-2 [place] NA DAILY For STUFFY NOSE 1 Qty [...] Tolerated Physician Follow-up Appt #1: Dr Aguilar [phone] F/U Appt: One Week Discharge Instructions 1. [...] F (96.0 - 99.9) Temperature (Calculated Celsius) 37.21542 degrees C Temperature (Calculated Celsius) 36.95896 degrees C (36.4 - 37.5) Temperature (Fahrenheit) 98.4 degrees F (96.0 - 99.9) Temperature Source Oral Temperature Source Oral Temp 98.4 degrees F (96.0 - 99.9) Temperature (Calculated Celsius) 36.44051 degrees C Pulse Pulse Rate (adult) 93 [...] April 29, 2014 8:54am Lab Scanned Report [id number] Lactate Dehydrogenase September 28, 1998 4:10pm 152 [...] Synovial Fluid WBC September 27, 1998 12:00am 61680.0 /uL PH Target Cells August 05, 2001 [...] NONE SOURCE: URINE, CLEAN CATCH Urine Specific [place] July 09, 2014 6:35am 1.015 1.005-1.030 SOURCE: [...] procedures. Encounters Encounter Location Date/Time Discharged Inpatient [facility] 07/09/14 11:21am Office Visit APARNA AGUILAR 07/08/14 9:00am Registered Clinic [place] [facility] 07/06/14 10:21am Office Visit APARNA AGUILAR 07/02/14 10:30am Discharged Inpatient [place] [facility] 06/15/14 1:11am Registered Clinic [facility] 06/14/14 11:24am Office Visit APARNA AGUILAR 06/14/14 11:00am Office Visit APARNA AGUILAR 06/02/14 11:15am Discharged Inpatient [facility] 05/21/14 10:17pm Office Visit APARNA AGUILAR 04/26/14 8:45am Office Visit APARNA AGUILAR 04/20/14 1:30pm Registered Clinic [facility] 04/20/14 11:00am Office Visit APANRA AGUILAR 04/14/14 11:15am Office Visit APARNA R JEFF 04/01/14 10:30am Registered Clinic Aida Benson [facility] 03/23/14 10:53am Office Visit APARNA R JEFF 03/18/14 10:15am Office Visit APARNA R JEFF 03/11/14 11:15am Registered Clinic Aida Benson [facility] 03/09/14 11:00am Discharged Inpatient Aida Benson [facility] 03/06/14 8:25pm Office Visit APARNA R JEFF 03/05/14 11:15am Office Visit APARNA R JEFF 03/01/14 9:15am Office Visit APARNA R JEFF 02/26/14 10:00am Registered Clinic Aida Benson [facility] 02/23/14 11:35am Discharged Inpatient Aida Benson [facility] 02/16/14 8:34pm Discharged Inpatient Aida Benson [facility] 02/12/14 2:30am Departed Emergency Room Aida Benson [facility] 02/08/14 10:15am Office Visit APARNA R JEFF 02/02/14 2:15pm Registered Clinic Aida Benson [facility] 02/02/14 1:31pm Office Visit APARNA R JEFF 01/21/14 10:00am Registered Clinic Aida Benson [facility] 01/12/14 11:43am Office Visit APARNA R JEFF 01/07/14 10:00am Registered Clinic Aida Benson [facility] 12/22/13 12:49pm Office Visit APARNA R JEFF 12/22/13 11:30am Office Visit APARNA R JEFF 12/10/13 11:00am Registered Recurring Aida Benson [facility] 12/01/13 3:00pm Registered Clinic Aida Benson [facility] 12/01/13 2:25pm Discharged Inpatient Aida Benson [facility] 11/27/13 2:30am Office Visit APARNA R JEFF 11/26/13 10:45am Office Visit APARNA R JEFF 11/12/13 11:30am Office Visit APARNA R JEFF 11/05/13 9:15am Discharged Inpatient Aida Benson [facility] 10/30/13 12:37pm Office Visit APARNA R JEFF 10/27/13 10:45am Office Visit APARNA AGUILAR 10/06/13 11:15am Office Visit APARNA AGUILAR 09/24/13 10:00am Office Visit APARNA AGUILAR 09/08/13 10:30am Office Visit APARNA AGUILAR 08/25/13 10:00am Office Visit APARNA AGUILAR 08/18/13 11:00am Registered Clinic Aida Benson [facility] 08/11/13 2:45pm Office Visit APARNA AGUILAR 08/11/13 2:15pm Office Visit APARNA AGUILAR 08/05/13 10:45am Office Visit APARNA AGUILAR 07/31/13 1:00pm Office Visit APARNA AGUILAR 07/30/13 10:05am Office Visit APARNA AGUILAR 07/24/13 11:30am Office Visit APARNA AGUILAR 07/14/13 10:30am Recent Diagnosis Benign essential hypertension Diabetes mellitus Congestive heart failure (CHF) Cellulitis Hypoxia Hypotension
--- OUTSIDE RECORDS SUMMARY | 2016-11-10 07:23 | XMS REPORT | Continuity of Care Document ---
Author Author [facility] Organization [facility] Address Unknown Phone Unavailable Care Team Providers Care Carrier Washer Name Role Phone APARNA AGUILAR MD Primary Care Physician [phone] Insurance Providers Payer Name Policy Number Subscriber Name Relationship Wps Medicare [id number] Amee Guillen 01 Self / Same As Patient For Life [id number] Amee Guillen Self / Same As Patient Advance Directives Directive Response Recorded Date/Time Patient Resuscitation Status Full Code 05/22/14 2:38am Advance Directives Yes 05/22/14 2:38am Living Will Yes 05/22/14 2:38am Health Care Power of Global Marketing Manager Yes 05/22/14 2:38am Chief Complaint and Reason [...] 05/27/13 08/25/13 Discontinued Fluticasone Propionate (Nasal) 2 [place] NA DAILY 1 Qty 05/27/13 Discontinued Levofloxacin 500 Mg PO DAILY 10 Qty 05/29/13 07/31/13 Discontinued Magnesium Oxide 400 Mg PO TWICE A DAY For NUTRIENT REPLACEMENT 180 Qty 06/30/13 04/07/14 Discontinued Fluconazole 100 Mg PO WEEKLY For PREVENT INFECTION 12 Qty 06/30/1303/07 Discontinued Tamsulosin Hcl 0.4 Mg PO DAILY For DYSUREA 90 Qty 06/30/13 Active Fluticasone Propionate (Nasal) 2 [place] NA DAILY For CONGESTION 3 Qty Active [...] Qty 02/08/14 Active Fluticasone Propionate (Nasal) 1-2 [place] NA DAILY For STUFFY NOSE 1 Qty [...] For CHF 30 Qty 02/19/14 02/26/14 Discontinued [place]-3 Fatty Acids 1,000 Mg PO DAILY 03/06/14 [...] Tolerated Physician Follow-up Appt #1: Dr Aguilar [phone] F/U Appt: One Week Discharge Instructions 1. [...] Nursing Instructions Physician Follow-up Appointment: Dr Aguilar [phone] Scheduled Date: 05/31/14 Scheduled Time: 1:45PM Signs [...] F (96.0 - 99.9) Temperature (Calculated Celsius) 36.78780 degrees C Temperature (Calculated Celsius) 36.98409 degrees C (36.4 - 37.5) Temperature (Fahrenheit) 98.4 degrees F (96.0 - 99.9) Temperature Source Oral Temperature Source Oral Temp 98.4 degrees F (96.0 - 99.9) Temperature (Calculated Celsius) 36.50065 degrees C Pulse Pulse Rate (adult) 84 [...] April 29, 2014 8:54am Lab Scanned Report [id number] Lactate Dehydrogenase September 28, 1998 4:10pm 152 [...] Synovial Fluid WBC September 27, 1998 12:00am 43935.0 /uL PH Target Cells August 05, 2001 [...] 05SOURCE : URINE, CLEAN CATCH Urine Specific [place] May 21, 2014 9:11pm 1.015 1.005-1.030 SOURCE: [...] Encounter Location Date/Time Admitted Inpatient [facility] 05/21/14 10:17pm Office Visit APARNA TURCIOSS 04/26/14 8:45am Office Visit APARNA TURCIOSS 04/20/14 1:30pm Registered Clinic A[facility] 04/20/14 11:00am Office Visit APARNA TURCIOSS 04/14/14 11:15am Office Visit APARNA TURCIOSS 04/01/14 10:30am Registered Clinic Aida Benson [facility] 03/23/14 10:53am Office Visit APARNA TURCIOSS 03/18/14 10:15am Office Visit APARNA TURCIOSS 03/11/14 11:15am Registered Clinic Aida Benson [facility] 03/09/14 11:00am Discharged Inpatient Aida Benson [facility] 03/06/14 8:25pm Office Visit APARNA TURCIOSS 03/05/14 11:15am Office Visit APARNA TURCIOSS 03/01/14 9:15am Office Visit APARNA TURCIOSS 02/26/14 10:00am Registered Clinic Aida Benson [facility] 02/23/14 11:35am Discharged Inpatient Aidaeleni Benson [facility] 02/16/14 8:34pm Discharged Inpatient Aida Benson [facility] 02/12/14 2:30am Departed Emergency Room Aidaeleni Benson [facility] 02/08/14 10:15am Office Visit APARNA TURCIOSS 02/02/14 2:15pm Registered Clinic Aida Benson [facility] 02/02/14 1:31pm Office Visit APARNA TURCIOSS 01/21/14 10:00am Registered Clinic Aida Benson [facility] 01/12/14 11:43am Office Visit APARNA TURCIOSS 01/07/14 10:00am Registered Clinic Aida Benson [facility] 12/22/13 12:49pm Office Visit APARNA R JEFF 12/22/13 11:30am Office Visit APARNA R JEFF 12/10/13 11:00am Registered Recurring Aida Benson [facility] 12/01/13 3:00pm Registered Clinic Aida Benson [facility] 12/01/13 2:25pm Discharged Inpatient Aida Benson [facility] 11/27/13 2:30am Office Visit APARNA R JEFF 11/26/13 10:45am Office Visit APARNA R JEFF 11/12/13 11:30am Office Visit APARNA R JEFF 11/05/13 9:15am Discharged Inpatient Aida Benson [facility] 10/30/13 12:37pm Office Visit APARNA R JEFF 10/27/13 10:45am Office Visit APARNA R JEFF 10/06/13 11:15am Office Visit APARNA R JEFF 09/24/13 10:00am Office Visit APARNA R JEFF 09/08/13 10:30am Office Visit APARNA R JEFF 08/25/13 10:00am Office Visit APARNA R JEFF 08/18/13 11:00am Registered Clinic Aida Benson [facility] 08/11/13 2:45pm Office Visit APARNA R JEFF 08/11/13 2:15pm Office Visit APARNA R JEFF 08/05/13 10:45am Office Visit APARNA R JEFF 07/31/13 1:00pm Office Visit APARNA R JEFF 07/30/13 10:05am Office Visit APARNA R JEFF 07/24/13 11:30am Office Visit APARNA R JEFF 07/14/13 10:30am Office Visit APARNA R JEFF 06/30/13 10:30am Registered Clinic Aida Benson [facility] 06/09/13 11:37am Office Visit APARNA R JEFF 06/09/13 11:30am Registered Clinic Aida Benson [facility] 06/02/13 11:35am Office Visit APARNA R JEFF 06/02/13 11:15am Discharged Inpatient Aida Benson [facility] 05/28/13 7:10am Office Visit APARNA R JEFF 05/27/13 1:00pm Discharged Inpatient A[facility] 05/25/13 9:20am Recent Diagnosis Benign essential hypertension Diabetes mellitus Cellulitis Congestive heart failure (CHF) History of CHF (congestive heart failure) Chronic pain Cellulitis Opiate overdose Hypotension Cellulitis
--- OUTSIDE RECORDS SUMMARY | 2016-11-10 07:24 | XMS REPORT | Continuity of Care Document ---
Author Author [facility] Organization [facility] Address Unknown Phone Unavailable Care Team Providers Care Production Leader Name Role Phone APARNA AGUILAR MD Unavailable [phone] Insurance Providers Payer Name Policy Number Subscriber Name Relationship Wps Medicare [id number] Amee Guillen 01 Self / Same As Patient For Life [id number] Amee Guillen Self / Same As Patient Advance Directives Directive Response Recorded Date/Time Patient Resuscitation Status Full Code 06/15/14 3:31am Advance Directives Yes 06/15/14 3:31am Living Will Yes 06/15/14 3:31am Health Care Power of Shank Archer Yes 06/15/14 3:31am Problems Medical Problems Problem [...] 05/27/13 08/25/13 Discontinued Fluticasone Propionate (Nasal) 2 [place] NA DAILY 1 Qty 05/27/13 Discontinued Levofloxacin 500 Mg PO DAILY 10 Qty 05/29/13 07/31/13 Discontinued Magnesium Oxide 400 Mg PO TWICE A DAY For NUTRIENT REPLACEMENT 180 Qty 06/30/13 04/07/14 Discontinued Fluconazole 100 Mg PO WEEKLY For PREVENT INFECTION 12 Qty 06/30/1303/07 Discontinued Tamsulosin Hcl 0.4 Mg PO DAILY For DYSUREA 90 Qty 06/30/13 Active Fluticasone Propionate (Nasal) 2 [place] NA DAILY For CONGESTION 3 Qty Active [...] Qty 02/08/14 Active Fluticasone Propionate (Nasal) 1-2 [place] NA DAILY For STUFFY NOSE 1 Qty [...] For CHF 30 Qty 02/19/14 02/26/14 Discontinued [place]-3 Fatty Acids 1,000 Mg PO DAILY 03/06/14 [...] Qty 06/02/14 Active Fluticasone Propionate (Nasal) 1-2 [place] NA DAILY For STUFFY NOSE 1 Qty [...] F (96.0 - 99.9) Temperature (Calculated Celsius) 37.66497 degrees C Temperature (Calculated Celsius) 36.66062 degrees C (36.4 - 37.5) Temperature (Fahrenheit) 98.4 degrees F (96.0 - 99.9) Temperature Source Oral Temperature Source Axillary Temp 98.4 degrees F (96.0 - 99.9) Temperature (Calculated Celsius) 36.45701 degrees C Pulse Pulse Rate (adult) 94 [...] April 29, 2014 8:54am Lab Scanned Report [id number] Lactate Dehydrogenase September 28, 1998 4:10pm 152 [...] Synovial Fluid WBC September 27, 1998 12:00am 03881.0 /uL PH Target Cells August 05, 2001 [...] NONE SOURCE: URINE, CLEAN CATCH Urine Specific [place] June 15, 2014 12:35am 1.025 1.005-1.030 SOURCE: [...] Encounter Location Date/Time Admitted Inpatient Aida Benson [facility] 06/15/14 1:11am Registered Clinic Aidaeleni Benson [facility] 06/14/14 11:24am Office Visit APARNA R JEFF 06/14/14 11:00am Office Visit APARNA R JEFF 06/02/14 11:15am Discharged Inpatient Aida Benson [facility] 05/21/14 10:17pm Office Visit APARNA R JEFF 04/26/14 8:45am Office Visit APARNA R JEFF 04/20/14 1:30pm Registered Clinic Adia Benson [facility] 04/20/14 11:00am Office Visit APARNA R JEFF 04/14/14 11:15am Office Visit APARNA R JEFF 04/01/14 10:30am Registered Clinic Aida Benson [facility] 03/23/14 10:53am Office Visit APARNA R JEFF 03/18/14 10:15am Office Visit APARNA R JEFF 03/11/14 11:15am Registered Clinic Aida Benson [facility] 03/09/14 11:00am Discharged Inpatient Aida Benson [facility] 03/06/14 8:25pm Office Visit APARNA R JEFF 03/05/14 11:15am Office Visit APARNA R JEFF 03/01/14 9:15am Office Visit APARNA R JEFF 02/26/14 10:00am Registered Clinic Aida Benson [facility] 02/23/14 11:35am Discharged Inpatient Aida Benson [facility] 02/16/14 8:34pm Discharged Inpatient Aida Benson [facility] 02/12/14 2:30am Departed Emergency Room Aida Benson [facility] 02/08/14 10:15am Office Visit APARNA R JEFF 02/02/14 2:15pm Registered Clinic Aida Benson [facility] 02/02/14 1:31pm Office Visit APARNA R JEFF 01/21/14 10:00am Registered Clinic Aida Benson [facility] 01/12/14 11:43am Office Visit APARNA R JEFF 01/07/14 10:00am Registered Clinic Aida Benson [facility] 12/22/13 12:49pm Office Visit APARNA R JEFF 12/22/13 11:30am Office Visit APARNA R JEFF 12/10/13 11:00am Registered Recurring Aida Benson [facility] 12/01/13 3:00pm Registered Clinic Aida Benson [facility] 12/01/13 2:25pm Discharged Inpatient Aida Benson [facility] 11/27/13 2:30am Office Visit APARNA R JEFF 11/26/13 10:45am Office Visit APARNA R JEFF 11/12/13 11:30am Office Visit APARNA R JEFF 11/05/13 9:15am Discharged Inpatient Aida Benson [facility] 10/30/13 12:37pm Office Visit APARNA R JEFF 10/27/13 10:45am Office Visit APARNA R JEFF 10/06/13 11:15am Office Visit APARNA R JEFF 09/24/13 10:00am Office Visit APARNA R JEFF 09/08/13 10:30am Office Visit APARNA R JEFF 08/25/13 10:00am Office Visit APARNA R JEFF 08/18/13 11:00am Registered Clinic Aida Benson [facility] 08/11/13 2:45pm Office Visit APARNA R JEFF 08/11/13 2:15pm Office Visit APARNA R JEFF 08/05/13 10:45am Office Visit APARNA R JEFF 07/31/13 1:00pm Office Visit APARNA R JEFF 07/30/13 10:05am Office Visit APARNA R JEFF 07/24/13 11:30am Office Visit APARNA R JEFF 07/14/13 10:30am Office Visit APARNA R JEFF 06/30/13 10:30am Recent Diagnosis Hypoxia Pneumonia
--- OUTSIDE RECORDS SUMMARY | 2016-11-10 07:25 | XMS REPORT | Continuity of Care Document ---
Author Author [facility] Organization [facility] Address Unknown Phone Unavailable Care Team Providers Care Competency Evaluated Nurse Aide Name Role Phone APARNA AGUILAR MD Unavailable [phone] Insurance Providers Payer Name Policy Number Subscriber Name Relationship Wps Medicare [id number] Amee Guillen Self / Same As Patient For Life [id number] Amee Guillen Self / Same As Patient [...] 05/27/13 08/25/13 Discontinued Fluticasone Propionate (Nasal) 2 [place] NA DAILY 1 Qty 05/27/13 Discontinued Levofloxacin [...] Qty 02/08/14 Active Fluticasone Propionate (Nasal) 1-2 [place] NA DAILY For STUFFY NOSE 1 Qty [...] F (96.0 - 99.9) Temperature (Calculated Celsius) 36.33111 degrees C Temperature Source Oral Temperature Source [...] October 28, 2014 2:17pm Lab Scanned Report [id number] Lactate Dehydrogenase September 28, 1998 4:10pm 152 [...] Synovial Fluid WBC September 27, 1998 12:00am 27979.0 /uL PH Target Cells August 05, 2001 [...] NONE SOURCE: URINE, CLEAN CATCH Urine Specific [place] December 16, 2014 10:02am 1.015 1.005-1.030 Urine [...] Encounters Encounter Location Date/Time Departed Emergency Room [facility] 12/30/14 11:10am Office Visit APARNA AGUILAR 12/27/14 11:15am Office Visit APARNA AGUILAR 12/20/14 1:15pm Office Visit APARNA AGUILAR 12/16/14 9:45am Office Visit APARNA AGUILAR 12/09/14 10:45am Departed Emergency Room [facility] 11/30/14 9:15am Office Visit APARNA AGUILAR 11/22/14 9:45am Office Visit APARNA AGUILAR 11/05/14 11:30am Departed Emergency Room [facility] 11/03/14 11:29am Registered [facility] 10/26/14 10:38am Office Visit APARNA AGUILAR 10/26/14 10:00am Departed Emergency Room [facility] 10/21/14 10:14am Office Visit APARNA AGUILAR 10/13/14 1:00pm Registered Clinic [facility] 10/12/14 10:45am Registered Clinic [facility] 09/28/14 10:32am Office Visit APARNA R JEFF 09/28/14 10:15am Office Visit APARNA R JEFF 09/15/14 11:15am Office Visit APARNA R JEFF 09/01/14 10:45am Registered Clinic Aida Benson [facility] 08/31/14 10:54am Office Visit APARNA R JEFF 08/18/14 10:45am Office Visit APARNA R JEFF 08/10/14 10:30am Discharged Inpatient Aida Benson [facility] 08/04/14 4:51pm Office Visit APARNA R JEFF 08/03/14 11:15am Registered Clinic Aida Benson [facility] 08/03/14 10:26am Office Visit APARNA R JEFF 07/22/14 10:45am Discharged Inpatient Aida Benson [facility] 07/09/14 11:21am Office Visit APARNA R JEFF 07/08/14 9:00am Registered Clinic Aida Benson [facility] 07/06/14 10:21am Office Visit APARNA R JEFF 07/02/14 10:30am Discharged Inpatient Aida Benson [facility] 06/15/14 1:11am Registered Clinic Aida Benson [facility] 06/14/14 11:24am Office Visit APARNA R JEFF 06/14/14 11:00am Office Visit APARNA R JEFF 06/02/14 11:15am Discharged Inpatient Aida Benson [facility] 05/21/14 10:17pm Office Visit APARNA R JEFF 04/26/14 8:45am Office Visit APARNA R JEFF 04/20/14 1:30pm Registered Clinic Aida Benson [facility] 04/20/14 11:00am Office Visit APARNA R JEFF 04/14/14 11:15am Office Visit APARNA R JEFF 04/01/14 10:30am Registered Clinic Aida Benson [facility] 03/23/14 10:53am Office Visit APARNA R JEFF 03/18/14 10:15am Office Visit APARNA R JEFF 03/11/14 11:15am Registered Clinic Aida Benson [facility] 03/09/14 11:00am Discharged Inpatient Aida[facility]i [facility] 03/06/14 8:25pm Office Visit APARNA R JEFF 03/05/14 11:15am Office Visit APARNA AGUILAR 03/01/14 9:15am Office Visit AAPRNA AGUILAR 02/26/14 10:00am Registered Clinic Aida Benson [facility] 02/23/14 11:35am Discharged Inpatient Aida Benson [facility] 02/16/14 8:34pm Discharged Inpatient Aida Benson [facility] 02/12/14 2:30am Departed Emergency Room Aida Benson [facility] 02/08/14 10:15am Office Visit APARNA AGUILAR 02/02/14 2:15pm Registered Clinic Aida Benson [facility] 02/02/14 1:31pm Office Visit APARNA AGUILAR 01/21/14 10:00am Registered Clinic Aida Benson [facility] 01/12/14 11:43am Office Visit APARNA AGUILAR 01/07/14 10:00am Recent Diagnosis
--- OUTSIDE RECORDS SUMMARY | 2016-11-10 07:25 | XMS REPORT | Continuity of Care Document ---
Author Author [facility] Organization [facility] Address Unknown Phone Unavailable Care Team Providers Care Oven Operator Automatic Name Role Phone APARNA AGUILAR MD Unavailable [phone] Insurance Providers Payer Name Policy Number Subscriber Name Relationship Wps Medicare [id number] Amee Guillen 01 Self / Same As Patient For Life [id number] Amee Guillen Self / Same As Patient [...] 05/27/13 08/25/13 Discontinued Fluticasone Propionate (Nasal) 2 [place] NA DAILY 1 Qty 05/27/13 Discontinued Levofloxacin [...] Qty 02/08/14 Active Fluticasone Propionate (Nasal) 1-2 [place] NA DAILY For STUFFY NOSE 1 Qty [...] F (96.0 - 99.9) Temperature (Calculated Celsius) 36.87471 degrees C Temperature (Calculated Celsius) 36.69204 degrees C (36.4 - 37.5) Temperature (Fahrenheit) 98.4 degrees F (96.0 - 99.9) Temperature Source Oral Temperature Source Oral Temp 98.4 degrees F (96.0 - 99.9) Temperature (Calculated Celsius) 36.35765 degrees C Pulse Pulse Rate (adult) 100 [...] April 29, 2014 8:54am Lab Scanned Report [id number] Lactate Dehydrogenase September 28, 1998 4:10pm 152 [...] Synovial Fluid WBC September 27, 1998 12:00am 59570.0 /uL PH Target Cells August 05, 2001 [...] NONE SOURCE: URINE, CLEAN CATCH Urine Specific [place] July 09, 2014 6:35am 1.015 1.005-1.030 SOURCE: [...] Encounter Location Date/Time Registered Clinic [facility] 10/12/14 10:45am Registered Clinic Aidaeleni Benson [facility] 09/28/14 10:32am Office Visit APARNA TURCIOSS 09/28/14 10:15am Office Visit APARNA TURCIOSS 09/15/14 11:15am Office Visit APARNA TURCIOSS 09/01/14 10:45am Registered Clinic Aidaeleni Benson [facility] 08/31/14 10:54am Office Visit APARNA TURCIOSS 08/18/14 10:45am Office Visit APARNA TURCIOSS 08/10/14 10:30am Discharged Inpatient Aida B[facility] 08/04/14 4:51pm Office Visit APARNA TURCIOSS 08/03/14 11:15am Registered Clinic Aidaeleni Benson [facility] 08/03/14 10:26am Office Visit APARNA TURCIOSS 07/22/14 10:45am Discharged Inpatient Aidaeleni Benson [facility] 07/09/14 11:21am Office Visit APARNA TURCIOSS 07/08/14 9:00am Registered Clinic Aida Benson [facility] 07/06/14 10:21am Office Visit APARNA TURCIOSS 07/02/14 10:30am Discharged Inpatient Aidaeleni Benson [facility] 06/15/14 1:11am Registered Clinic Aidaeleni Benson [facility] 06/14/14 11:24am Office Visit APARNA TURCIOSS 06/14/14 11:00am Office Visit APARNA TURCIOSS 06/02/14 11:15am Discharged Inpatient Aidaeleni Benson [facility] 05/21/14 10:17pm Office Visit APARNA R JEFF 04/26/14 8:45am Office Visit APARNA R JEFF 04/20/14 1:30pm Registered Clinic Aida Benson [facility] 04/20/14 11:00am Office Visit APARNA R JEFF 04/14/14 11:15am Office Visit APARNA R JEFF 04/01/14 10:30am Registered Clinic Aida Benson [facility] 03/23/14 10:53am Office Visit APARNA R JEFF 03/18/14 10:15am Office Visit APARNA R JEFF 03/11/14 11:15am Registered Clinic Aida Benson [facility] 03/09/14 11:00am Discharged Inpatient Aida Benson [facility] 03/06/14 8:25pm Office Visit APARNA R JEFF 03/05/14 11:15am Office Visit APARNA R JEFF 03/01/14 9:15am Office Visit APARNA R JEFF 02/26/14 10:00am Registered Clinic Aida Benson [facility] 02/23/14 11:35am Discharged Inpatient Aida Benson [facility] 02/16/14 8:34pm Discharged Inpatient Aida Benson [facility] 02/12/14 2:30am Departed Emergency Room Aidaeleni Benson [facility] 02/08/14 10:15am Office Visit APARNA R JEFF 02/02/14 2:15pm Registered Clinic Aida Benson [facility] 02/02/14 1:31pm Office Visit APARNA R JEFF 01/21/14 10:00am Registered Clinic Aida Benson [facility] 01/12/14 11:43am Office Visit APARNA R JEFF 01/07/14 10:00am Registered Clinic Aida Benson [facility] 12/22/13 12:49pm Office Visit APARNA R JEFF 12/22/13 11:30am Office Visit APARNA R JEFF 12/10/13 11:00am Registered Recurring Aida Benson [facility] 12/01/13 3:00pm Registered Clinic Aida Benson [facility] 12/01/13 2:25pm Discharged Inpatient Aida Benson [facility] 11/27/13 2:30am Office Visit APARNA R JEFF 11/26/13 10:45am Office Visit APARNA AGUILAR 11/12/13 11:30am Office Visit APARNA AGUILAR 11/05/13 9:15am Discharged Inpatient Aida Benson [facility] 10/30/13 12:37pm Office Visit APARNA AGUILAR 10/27/13 10:45am
--- OUTSIDE RECORDS SUMMARY | 2016-11-10 07:26 | XMS REPORT | Continuity of Care Document ---
Author Author [facility] Organization [facility] Address Unknown Phone Unavailable Care Team Providers Care Charger Operator Helper Name Role Phone APARNA AGUILAR MD Unavailable [phone] Insurance Providers Payer Name Policy Number Subscriber Name Relationship Wps Medicare [id number] Amee Guillen Self / Same As Patient For Life [id number] Amee Guillen Self / Same As Patient [...] 05/27/13 08/25/13 Discontinued Fluticasone Propionate (Nasal) 2 [place] NA DAILY 1 Qty 05/27/13 Discontinued Levofloxacin 500 Mg PO DAILY 10 Qty 05/29/13 07/31/13 Discontinued Magnesium Oxide 400 Mg PO TWICE A DAY 180 Qty 06/30/13 Active Fluconazole 100 Mg PO WEEKLY 12 Qty 06/30/13 Active Tamsulosin Hcl 0.4 Mg PO DAILY 90 Qty 06/30/13 Active Fluticasone Propionate (Nasal) 2 [place] NA DAILY 3 Qty 06/30/13 Active Minocycline [...] Qty 02/08/14 Active Fluticasone Propionate (Nasal) 1-2 [place] NA DAILY 1 Qty 02/12/14 Active Nitroglycerin [...] Tolerated Physician Follow-up Appt #1: Dr Aguilar [phone] F/U Appt: One Week Discharge Instructions 1. Follow up with Dr Aguilar within 1 week 2. Return to the ED for evaluation if any concerns. Signs/Symptoms -notify Doctor: Fever above 101 deg, Shortness of Breath, Chilling Nursing Instructions Physician Follow-up Appointment: Dr Aguilar [phone] Scheduled Date: 02/26/14 Scheduled Time: 10 am [...] January 26, 2014 2:09pm Lab Scanned Report [id number] Lactate Dehydrogenase September 28, 1998 4:10pm 152 [...] Synovial Fluid WBC September 27, 1998 12:00am 40388.0 /uL PH Target Cells August 05, 2001 [...] 05SOURCE : URINE, CLEAN CATCH Urine Specific [place] February 16, 2014 10:54pm 1.010 1.005-1.030 HAS [...] Encounter Location Date/Time Registered Clinic [facility] 02/23/14 11:35am Discharged Inpatient [place] [facility] 02/16/14 8:34pm Discharged Inpatient [place] [facility] 02/12/14 2:30am Departed Emergency Room [facility] 02/08/14 10:15am Office Visit APARNA AGUILAR 02/02/14 2:15pm Registered Clinic [facility] 02/02/14 1:31pm Office Visit APARNA AGUILAR 01/21/14 10:00am Registered Clinic [facility] 01/12/14 11:43am Office Visit APARNA AGUILAR 01/07/14 10:00am Registered Clinic [facility] 12/22/13 12:49pm Office Visit APARNA AGUILAR 12/22/13 11:30am Office Visit APARNA TURCIOSS 12/10/13 11:00am [facility] 3[facility] Reg[facility] 12/01/13 2:25pm Discharged Inpatient [facility] 11/27/13 2:30am Office Visit APARNA AGUILAR 11/26/13 10:45am Office Visit APARNA AGUILAR 11/12/13 11:30am Office Visit APARNA R JEFF 11/05/13 9:15am Discharged Inpatient Aida Benson [facility] 10/30/13 12:37pm Office Visit APARNA R JEFF 10/27/13 10:45am Office Visit APARNA R JEFF 10/06/13 11:15am Office Visit APARNA R JEFF 09/24/13 10:00am Office Visit APARNA R JEFF 09/08/13 10:30am Office Visit APARNA R JEFF 08/25/13 10:00am Office Visit APARNA R JEFF 08/18/13 11:00am Registered Clinic Aida Benson [facility] 08/11/13 2:45pm Office Visit APARNA R JEFF 08/11/13 2:15pm Office Visit APARNA R JEFF 08/05/13 10:45am Office Visit APARNA R JEFF 07/31/13 1:00pm Office Visit APARNA R JEFF 07/30/13 10:05am Office Visit APARNA R JEFF 07/24/13 11:30am Office Visit APARNA R JEFF 07/14/13 10:30am Office Visit APARNA R JEFF 06/30/13 10:30am Registered Clinic Aida Benson [facility] 06/09/13 11:37am Office Visit APARNA R JEFF 06/09/13 11:30am Registered Clinic Aida Benson [facility] 06/02/13 11:35am Office Visit APARNA R JEFF 06/02/13 11:15am Discharged Inpatient Aida Benson [facility] 05/28/13 7:10am Office Visit APARNA R JEFF 05/27/13 1:00pm Discharged Inpatient Aida Benson [facility] 05/25/13 9:20am Office Visit APARNA R JEFF 05/19/13 11:15am Registered Clinic Aida Benson [facility] 05/12/13 1:36pm Office Visit APARNA R [...]
--- OUTSIDE RECORDS SUMMARY | 2016-11-10 07:27 | XMS REPORT | Continuity of Care Document ---
Author Author [facility] Organization [facility] Address Unknown Phone Unavailable Care Team Providers Care Bingo Attendant Name Role Phone APARNA AGUILAR MD Unavailable [phone] Insurance Providers Payer Name Policy Number Subscriber Name Relationship Wps Medicare [id number] Amee Guillen Self / Same As Patient For Life [id number] Amee Guillen Self / Same As Patient Chief Complaint and Reason for Visit Chief Complaint Dyspnea Reason for Visit [id number] Problems Medical Problems Problem Onset Date Status [...] 05/27/13 08/25/13 Discontinued Fluticasone Propionate (Nasal) 2 [place] NA DAILY 1 Qty 05/27/13 Discontinued Levofloxacin [...] Qty 02/08/14 Active Fluticasone Propionate (Nasal) 1-2 [place] NA DAILY For STUFFY NOSE 1 Qty [...] F (96.0 - 99.9) Temperature (Calculated Celsius) 36.47953 degrees C Temperature (Calculated Celsius) 36.27770 degrees C (36.4 - 37.5) Temperature (Fahrenheit) 98.4 degrees F (96.0 - 99.9) Temperature Source Oral Temperature Source Oral Temp 98.4 degrees F (96.0 - 99.9) Temperature (Calculated Celsius) 36.67136 degrees C Pulse Pulse Rate (adult) 79 [...] October 28, 2014 2:17pm Lab Scanned Report [id number] Lactate Dehydrogenase September 28, 1998 4:10pm 152 [...] Synovial Fluid WBC September 27, 1998 12:00am 37783.0 /uL PH Target Cells August 05, 2001 [...] NONE SOURCE: URINE, CLEAN CATCH Urine Specific [place] July 09, 2014 6:35am 1.015 1.005-1.030 SOURCE: [...] Date/Time Departed Emergency Room [facility] 11/03/14 11:29am Registered Clinic [facility] 10/26/14 10:38am Office Visit APARNA AGUILAR 10/26/14 10:00am Departed Emergency Room [facility] 10/21/14 10:14am Office Visit APARNA AGUILAR 10/13/14 1:00pm Registered Clinic [facility] 10/12/14 10:45am Registered Clinic [facility] 09/28/14 10:32am Office Visit APARNA AGUILAR 09/28/14 10:15am Office Visit APARNA AGUILAR 09/15/14 11:15am Office Visit APARNA AGUILAR 09/01/14 10:45am Registered Clinic [facility] 08/31/14 10:54am Office Visit APARNA R JEFF 08/18/14 10:45am Office Visit APARNA R JEFF 08/10/14 10:30am Discharged Inpatient [facility] 08/04/14 4:51pm Office Visit APARNA R JEFF 08/03/14 11:15am Registered Clinic [facility] 08/03/14 10:26am Office Visit APARNA R JEFF 07/22/14 10:45am Discharged Inpatient Aida [facility] 07/09/14 11:21am Office Visit APARNA R JEFF 07/08/14 9:00am Registered Clinic Aida [facility] 07/06/14 10:21am Office Visit APARNA R JEFF 07/02/14 10:30am Discharged Inpatient Aida [facility] 06/15/14 1:11am Registered Clinic Aida [facility] 06/14/14 11:24am Office Visit APARNA R JEFF 06/14/14 11:00am Office Visit APARNA R JEFF 06/02/14 11:15am Discharged Inpatient Aida [facility] 05/21/14 10:17pm Office Visit APARNA R JEFF 04/26/14 8:45am Office Visit APARNA R JEFF 04/20/14 1:30pm Registered Clinic [facility] [facility] 04/20/14 11:00am Office Visit APARNA R JEFF 04/14/14 11:15am Office Visit APARNA R JEFF 04/01/14 10:30am Registered Clinic [facility] 03/23/14 10:53am Office Visit APARNA R JEFF 03/18/14 10:15am Office Visit APARNA R JEFF 03/11/14 11:15am Registered Clinic [facility] 03/09/14 11:00am Discharged Inpatient Aida [facility] 03/06/14 8:25pm Office Visit APARNA R JEFF 03/05/14 11:15am Office Visit APARNA R JEFF 03/01/14 9:15am Office Visit APARNA R JEFF 02/26/14 10:00am Registered Clinic Aida [facility] 02/23/14 11:35am Discharged Inpatient Aida [facility] 02/16/14 8:34pm Discharged Inpatient Aida Benson [facility] 02/12/14 2:30am Departed Emergency Room Aida Benson [facility] 02/08/14 10:15am Office Visit APARNA AGUILAR 02/02/14 2:15pm Registered Clinic Aida [facility] 02/02/14 1:31pm Office Visit APARNA AGUILAR 01/21/14 10:00am Registered Clinic Aida [facility] 01/12/14 11:43am Office Visit APARNA AGUILAR 01/07/14 10:00am Registered Clinic Aida [facility] 12/22/13 12:49pm Office Visit APARNA AGUILAR 12/22/13 11:30am Office Visit APARNA AGUILAR 12/10/13 11:00am Registered [facility] 12/01/13 3:00pm Registered Clinic Aida [facility] 12/01/13 2:25pm Discharged Inpatient Aida [facility] 11/27/13 2:30am Office Visit APARNA AGUILAR 11/26/13 10:45am Office Visit APARNA AGUILAR 11/12/13 11:30am Office Visit APARNA AGUILAR 11/05/13 9:15am Recent Diagnosis
--- OUTSIDE RECORDS SUMMARY | 2016-11-10 07:28 | XMS REPORT | Continuity of Care Document ---
Author Author [facility] Organization [facility] Address Unknown Phone Unavailable Care Team Providers Care Lens Cutter Name Role Phone APARNA AGUILAR MD Unavailable [phone] Insurance Providers Payer Name Policy Number Subscriber Name Relationship Wps Medicare [id number] Amee Guillen Self / Same As Patient For Life [id number] Amee Guillen Self / Same As Patient [...] 05/27/13 08/25/13 Discontinued Fluticasone Propionate (Nasal) 2 [place] NA DAILY 1 Qty 05/27/13 Discontinued Levofloxacin 500 Mg PO DAILY 10 Qty 05/29/13 07/31/13 Discontinued Magnesium Oxide 400 Mg PO TWICE A DAY 180 Qty 06/30/13 Active Fluconazole 100 Mg PO WEEKLY 12 Qty 06/30/13 Active Tamsulosin Hcl 0.4 Mg PO DAILY 90 Qty 06/30/13 Active Fluticasone Propionate (Nasal) 2 [place] NA DAILY 3 Qty 3 month supply [...] Synovial Fluid WBC September 27, 1998 12:00am 20398.0 /uL PH Target Cells August 05, 2001 [...] 05SOURCE : URINE, CLEAN CATCH Urine Specific [place] October 30, 2013 4:48pm 1.015 1.005-1.030 HAS [...] August 25, 2013 10:32am Lab Scanned Report [id number] Bedside Troponin I November 27, 2013 1:15am [...] Clinic [facility] 12/22/13 12:49pm Office Visit APARNA TURCIOSS 12/22/13 11:30am Office Visit APARNA TURCIOSS 12/10/13 11:00am Registered [facility] 12/01/13 3:00pm Registered Clinic [facility] 12/01/13 2:25pm Discharged Inpatient [facility] 11/27/13 2:30am Office Visit APARNA DELUCAHNS 11/26/13 10:45am Office Visit APARNA Burks JEFF 11/12/13 11:30am Office Visit APARNA R JEFF 11/05/13 9:15am Discharged Inpatient [facility] 10/30/13 12:37pm Office Visit APARNA Burks JEFF 10/27/13 10:45am Office Visit APARNA R JEFF 10/06/13 11:15am Office Visit APARNA R JEFF 09/24/13 10:00am Office Visit APARNA R JEFF 09/08/13 10:30am Office Visit APARNA R JEFF 08/25/13 10:00am Office Visit APARNA R JEFF 08/18/13 11:00am [facility] [...] 10:30am Registered Clinic Aida [facility] 06/09/13 11:37am Office Visit APARAN R JEFF 06/09/13 11:30am Registered Clinic Aida Benson [facility] 06/02/13 11:35am Office Visit APARNA R JEFF 06/02/13 11:15am Discharged Inpatient Aida Benson [facility] 05/28/13 7:10am Office Visit APARNA R JEFF 05/27/13 1:00pm Discharged Inpatient Aida Benson [facility] 05/25/13 9:20am Office Visit APARNA R JEFF 05/19/13 11:15am Registered Clinic Aida Benson [facility] 05/12/13 1:36pm Office Visit APARNA R [...]
--- OUTSIDE RECORDS SUMMARY | 2016-11-10 07:29 | XMS REPORT | Continuity of Care Document ---
Author Author [facility] Organization [facility] Address Unknown Phone Unavailable Care Team Providers Care Pottery Decoration Designer Name Role Phone APARNA AGUILAR MD Unavailable [phone] Insurance Providers Payer Name Policy Number Subscriber Name Relationship Wps Medicare [id number] Amee Guillen Self / Same As Patient For Life [id number] Amee Guillen Self / Same As Patient Chief Complaint and Reason for Visit Chief Complaint Respiratory Problem Reason for Visit Respiratory acidosis Hypoxemia [id number] Problems Medical Problems Problem Onset Date Status [...] 05/27/13 08/25/13 Discontinued Fluticasone Propionate (Nasal) 2 [place] NA DAILY 1 Qty 05/27/13 Discontinued Levofloxacin [...] Qty 02/08/14 Active Fluticasone Propionate (Nasal) 1-2 [place] NA DAILY For STUFFY NOSE 1 Qty [...] F (96.0 - 99.9) Temperature (Calculated Celsius) 36.49818 degrees C Temperature (Calculated Celsius) 36.68175 degrees C (36.4 - 37.5) Temperature (Fahrenheit) 98.4 degrees F (96.0 - 99.9) Temperature Source Oral Temperature Source Oral Temp 98.4 degrees F (96.0 - 99.9) Temperature (Calculated Celsius) 36.12362 degrees C Pulse Pulse Rate (adult) 87 [...] April 29, 2014 8:54am Lab Scanned Report [id number] Lactate Dehydrogenase September 28, 1998 4:10pm 152 [...] Synovial Fluid WBC September 27, 1998 12:00am 73497.0 /uL PH Target Cells August 05, 2001 [...] SOURCE: URINE, CLEAN CATCH Urine Specific [place] July 09, 2014 6:35am 1.015 1.005-1.030 SOURCE: [...] Encounters Encounter Location Date/Time Departed Emergency Room [facility] 10/21/14 10:14am Office Visit APARNA AGUILAR 10/13/14 1:00pm Registered Clinic [facility] 10/12/14 10:45am Registered Clinic [facility] 09/28/14 10:32am Office Visit APARNA AGUILAR 09/28/14 10:15am Office Visit APARNA AGUILAR 09/15/14 11:15am Office Visit APARNA AGUILAR 09/01/14 10:45am Registered Clinic [facility] 08/31/14 10:54am Office Visit APARNA AGUILAR 08/18/14 10:45am Office Visit APARNA AGUILAR 08/10/14 10:30am Discharged Inpatient [place] [facility] 08/04/14 4:51pm Office Visit APARNA AGUILAR 08/03/14 11:15am Registered Clinic [facility] 08/03/14 10:26am Office Visit APARNA AGUILAR 07/22/14 10:45am Discharged Inpatient [facility]ida[facility]i [facility] 07/09/14 11:21am Office Visit APARNA Vitaliy JEFF 07/08/14 9:00am Registered Clinic [facility]ida [facility] 07/06/14 10:21am Office Visit APARNA R JEFF 07/02/14 10:30am Discharged Inpatient Aida Ramon [facility] 06/15/14 1:11am Registered Clinic Aida [facility] 06/14/14 11:24am Office Visit APARNA R JEFF 06/14/14 11:00am Office Visit APARNA R JEFF 06/02/14 11:15am Discharged Inpatient Aidaeleni Benson [facility] 05/21/14 10:17pm Office Visit APARNA R JEFF 04/26/14 8:45am Office Visit APARNA R JEFF 04/20/14 1:30pm Registered Clinic Aida Benson [facility] 04/20/14 11:00am Office Visit APARNA Burks JEFF 04/14/14 11:15am Office Visit APARNA DELUCAHNS 04/01/14 10:30am Registered Clinic Aida Benson [facility] 03/23/14 10:53am Office Visit APARNA R JEFF 03/18/14 10:15am Office Visit APARNA R JEFF 03/11/14 11:15am Registered Clinic Aida Benson [facility] 03/09/14 11:00am Discharged Inpatient Aida BarrientosJermain Benson [facility] 03/06/14 8:25pm Office Visit APARNA R JEFF 03/05/14 11:15am Office Visit APARNA R JEFF 03/01/14 9:15am Office Visit APARNA R JEFF 02/26/14 10:00am Registered Clinic Aida Benson [facility] 02/23/14 11:35am Discharged Inpatient Aida Benson [facility] 02/16/14 8:34pm Discharged Inpatient Aida Benson [facility] 02/12/14 2:30am Departed Emergency Room Aidaeleni Benson [facility] 02/08/14 10:15am Office Visit APARNA R JEFF 02/02/14 2:15pm Registered Clinic Aida Benson [facility] 02/02/14 1:31pm Office Visit APARNA AGUILAR 01/21/14 10:00am Registered Clinic Aida Benson [facility] 01/12/14 11:43am Office Visit APARNA AGUILAR 01/07/14 10:00am Registered Clinic Aida Benson [facility] 12/22/13 12:49pm Office Visit APARNA AGUILAR 12/22/13 11:30am Office Visit APARNA AGUILAR 12/10/13 11:00am Registered Recurring Aida Benson [facility] 12/01/13 3:00pm Registered Clinic Aida Benson [facility] 12/01/13 2:25pm Discharged Inpatient Aida Benson [facility] 11/27/13 2:30am Office Visit APARNA AGUILAR 11/26/13 10:45am Office Visit APARNA AGUILAR 11/12/13 11:30am Office Visit APARNA AGUILAR 11/05/13 9:15am Discharged Inpatient Aida Benson [facility] 10/30/13 12:37pm Office Visit APARNA AGUILAR 10/27/13 10:45am Recent Diagnosis
--- OUTSIDE RECORDS SUMMARY | 2016-11-10 07:30 | XMS REPORT | Continuity of Care Document ---
Author Author [facility] Organization [facility] Address Unknown Phone Unavailable Care Team Providers Care Cashier Name Role Phone APARNA AGUILAR MD Unavailable [phone] Insurance Providers Payer Name Policy Number Subscriber Name Relationship Wps Medicare [id number] Amee Guillen 01 Self / Same As Patient For Life [id number] Amee Guillen Self / Same As Patient [...] 05/27/13 08/25/13 Discontinued Fluticasone Propionate (Nasal) 2 [place] NA DAILY 1 Qty 05/27/13 Discontinued Levofloxacin 500 Mg PO DAILY 10 Qty 05/29/13 07/31/13 Discontinued Magnesium Oxide 400 Mg PO TWICE A DAY 180 Qty 06/30/13 04/07/14 Discontinued Fluconazole 100 Mg PO WEEKLY 12 Qty 06/30/13 04/01/14 Discontinued Tamsulosin Hcl 0.4 Mg PO DAILY 90 Qty 06/30/13 Active Fluticasone Propionate (Nasal) 2 [place] NA DAILY 3 Qty 06/30/13 Active Minocycline [...] Qty 02/08/14 Active Fluticasone Propionate (Nasal) 1-2 [place] NA DAILY 1 Qty 02/12/14 Active Nitroglycerin [...] PO DAILY 30 Qty 02/19/14 02/26/14 Discontinued [place]-3 Fatty Acids 1,000 Mg PO DAILY 03/06/14 [...] F (96.0 - 99.9) Temperature (Calculated Celsius) 37.50906 degrees C Temperature (Calculated Celsius) 36.81587 degrees C (36.4 - 37.5) Temperature (Fahrenheit) 98.4 degrees F (96.0 - 99.9) Temperature Source Oral Temperature Source Oral Temp 98.4 degrees F (96.0 - 99.9) Temperature (Calculated Celsius) 36.06536 degrees C Pulse Pulse Rate (adult) 88 [...] March 12, 2014 11:51am Lab Scanned Report [id number] Lactate Dehydrogenase September 28, 1998 4:10pm 152 [...] Synovial Fluid WBC September 27, 1998 12:00am 78861.0 /uL PH Target Cells August 05, 2001 [...] 05SOURCE : URINE, CLEAN CATCH Urine Specific [place] March 06, 2014 6:15pm 1.015 1.005-1.030 SOURCE: [...] Encounter Location Date/Time Registered Clinic [facility] 04/20/14 11:00am Office Visit APARNA AGUILAR 04/14/14 11:15am Office Visit APARNA AGUILAR 04/01/14 10:30am Registered Clinic [facility] 03/23/14 10:53am Office Visit APARNA AGUILAR 03/18/14 10:15am Office Visit APARNA TURCIOSS 03/11/14 11:15am Registered Clinic [facility] 03/09/14 11:00am Discharged Inpatient Aida Ramon [facility] 03/06/14 8:25pm Office Visit APARNA AGUILAR 03/05/14 11:15am Office Visit APARNA AGUILAR 03/01/14 9:15am Office Visit APARNA AGUILAR 02/26/14 10:00am Registered Clinic Aidaeleni Benson [facility] 02/23/14 11:35am Discharged Inpatient [facility] 02/16/14 8:34pm [facility] Departed Emergency Room [facility] 02/08/14 10:15am Office Visit APARNA AGUILAR 02/02/14 2:15pm Registered Clinic Aidaeleni [facility] 02/02/14 1:31pm Office Visit APARNA AGUILAR 01/21/14 10:00am Registered Clinic [facility] 01/12/14 11:43am Office Visit APARNA R JEFF 01/07/14 10:00am Registered Clinic Aida Benson [facility] 12/22/13 12:49pm Office Visit APARNA R JEFF 12/22/13 11:30am Office Visit APARNA R JEFF 12/10/13 11:00am Registered Recurring Aida Benson [facility] 12/01/13 3:00pm Registered Clinic Aida [facility] 12/01/13 2:25pm Discharged Inpatient Aida Benson [facility] 11/27/13 2:30am Office Visit APARNA R JEFF 11/26/13 10:45am Office Visit APARNA R JEFF 11/12/13 11:30am Office Visit APARNA R JEFF 11/05/13 9:15am Discharged Inpatient Aida [facility] 10/30/13 12:37pm Office Visit APARNA R JEFF 10/27/13 10:45am Office Visit APARNA R JEFF 10/06/13 11:15am Office Visit APARNA R JEFF 09/24/13 10:00am Office Visit APARNA R JEFF 09/08/13 10:30am Office Visit APARNA R JEFF 08/25/13 10:00am Office Visit APARNA R JEFF 08/18/13 11:00am Registered Clinic Aida [facility] 08/11/13 2:45pm Office Visit APARNA R JEFF 08/11/13 2:15pm Office Visit APARNA R JEFF 08/05/13 10:45am Office Visit APARNA R JEFF 07/31/13 1:00pm Office Visit APARNA R JEFF 07/30/13 10:05am Office Visit APARNA R JEFF 07/24/13 11:30am Office Visit APARNA R JEFF 07/14/13 10:30am Office Visit APARNA R JEFF 06/30/13 10:30am Registered Clinic Aida [facility] 06/09/13 11:37am Office Visit APARNA R JEFF 06/09/13 11:30am Registered Clinic Aida [facility] 06/02/13 11:35am Office Visit APARNA R JEFF 06/02/13 11:15am Discharged Inpatient Aida Benson [facility] 05/28/13 7:10am Office Visit APARNA R JEFF 05/27/13 1:00pm Discharged Inpatient Aida [facility] 05/25/13 9:20am Office Visit APARNA AGUILAR 05/19/13 11:15am Registered Clinic Aida Benson [facility] 05/12/13 1:36pm Office Visit APARNA AGUILAR 05/12/13 1:15pm Office Visit APARNA AGUILAR 05/06/13 11:15am Office Visit APARNA AGUILAR 04/22/13 11:00am
--- OUTSIDE RECORDS SUMMARY | 2016-11-10 07:30 | XMS REPORT | Continuity of Care Document ---
Author Author [facility] Organization [facility] Address Unknown Phone Unavailable Care Team Providers Care Shoveler Name Role Phone APARNA AGUIALR MD Unavailable [phone] Insurance Providers Payer Name Policy Number Subscriber Name Relationship Wps Medicare [id number] Amee Guillen 01 Self / Same As Patient For Life [id number] Amee Guillen Self / Same As Patient [...] 05/27/13 08/25/13 Discontinued Fluticasone Propionate (Nasal) 2 [place] NA DAILY 1 Qty 05/27/13 Discontinued Levofloxacin 500 Mg PO DAILY 10 Qty 05/29/13 07/31/13 Discontinued Magnesium Oxide 400 Mg PO TWICE A DAY 180 Qty 06/30/13 Active Fluconazole 100 Mg PO WEEKLY 12 Qty 06/30/13 Active Tamsulosin Hcl 0.4 Mg PO DAILY 90 Qty 06/30/13 Active Fluticasone Propionate (Nasal) 2 [place] NA DAILY 3 Qty 06/30/13 Active Minocycline [...] Qty 02/08/14 Active Fluticasone Propionate (Nasal) 1-2 [place] NA DAILY 1 Qty 02/12/14 Active Nitroglycerin [...] PO DAILY 30 Qty 02/19/14 02/26/14 Discontinued [place]-3 Fatty Acids 1,000 Mg PO DAILY 03/06/14 [...] F (96.0 - 99.9) Temperature (Calculated Celsius) 37.44818 degrees C Temperature (Calculated Celsius) 36.47780 degrees C (36.4 - 37.5) Temperature (Fahrenheit) 98.4 degrees F (96.0 - 99.9) Temperature Source Oral Temperature Source Oral Temp 98.4 degrees F (96.0 - 99.9) Temperature (Calculated Celsius) 36.02303 degrees C Pulse Pulse Rate (adult) 105 [...] March 12, 2014 11:51am Lab Scanned Report [id number] Lactate Dehydrogenase September 28, 1998 4:10pm 152 [...] Synovial Fluid WBC September 27, 1998 12:00am 73325.0 /uL PH Target Cells August 05, 2001 [...] 05SOURCE : URINE, CLEAN CATCH Urine Specific [place] March 06, 2014 6:15pm 1.015 1.005-1.030 SOURCE: [...] Encounter Location Date/Time Registered Clinic Aida Benson [facility] 03/23/14 10:53am Office Visit APARNA R JEFF 03/18/14 10:15am Office Visit APARNA R JEFF 03/11/14 11:15am Registered Clinic Aida Benson [facility] 03/09/14 11:00am Discharged Inpatient Aida Benson [facility] 03/06/14 8:25pm Office Visit APARNA R JEFF 03/05/14 11:15am Office Visit APARNA R JEFF 03/01/14 9:15am Office Visit APARNA R JEFF 02/26/14 10:00am Registered Clinic Aida Benson [facility] 02/23/14 11:35am Discharged Inpatient Aidaeleni Benson [facility] 02/16/14 8:34pm Discharged Inpatient Aidaeleni Benson [facility] 02/12/14 2:30am Departed Emergency Room Aida Benson [facility] 02/08/14 10:15am Office Visit APARNA R JEFF 02/02/14 2:15pm Registered Clinic Aida Benson [facility] 02/02/14 1:31pm Office Visit APARNA R JEFF 01/21/14 10:00am Registered Clinic Aida Benson [facility] 01/12/14 11:43am Office Visit APARNA R JEFF 01/07/14 10:00am Registered Clinic Aida Benson [facility] 12/22/13 12:49pm Office Visit APARNA R JEFF 12/22/13 11:30am Office Visit APARNA R JEFF 12/10/13 11:00am Registered [facility] Aida Benson [facility] 12/01/13 3:00pm Registered Clinic Aida Benson [facility] 12/01/13 2:25pm Discharged Inpatient Aidaeleni Benson [facility] 11/27/13 2:30am Office Visit APARNA R JEFF 11/26/13 10:45am Office Visit APARNA R JEFF 11/12/13 11:30am Office Visit APARNA R JEFF 11/05/13 9:15am Discharged Inpatient Aida Benson [facility] 10/30/13 12:37pm Office Visit APARNA R JEFF 10/27/13 10:45am Office Visit APARNA R JEFF 10/06/13 11:15am Office Visit APARNA R JEFF 09/24/13 10:00am Office Visit APARNA R JEFF 09/08/13 10:30am Office Visit APARNA R JEFF 08/25/13 10:00am Office Visit APARNA R JEFF 08/18/13 11:00am Registered Clinic Aida Benson [facility] 08/11/13 2:45pm Office Visit APARNA R JEFF 08/11/13 2:15pm Office Visit APARNA R JEFF 08/05/13 10:45am Office Visit APARNA R JEFF 07/31/13 1:00pm Office Visit APARNA R JEFF 07/30/13 10:05am Office Visit APARNA R JEFF 07/24/13 11:30am Office Visit APARNA R JEFF 07/14/13 10:30am Office Visit APARNA R JEFF 06/30/13 10:30am Registered Clinic Aida Benson [facility] 06/09/13 11:37am Office Visit APARNA R JEFF 06/09/13 11:30am Registered Clinic Aida Benson [facility] 06/02/13 11:35am Office Visit APARNA R JEFF 06/02/13 11:15am Discharged Inpatient Aida Benson [facility] 05/28/13 7:10am Office Visit APARNA R JEFF 05/27/13 1:00pm Discharged Inpatient Aida Benson [facility] 05/25/13 9:20am Office Visit APARNA R JEFF 05/19/13 11:15am Registered Clinic Aida Benson [facility] 05/12/13 1:36pm Office Visit APARNA R JEFF 05/12/13 1:15pm Office Visit APARNA R JEFF 05/06/13 11:15am Office Visit APARNA R JEFF 04/22/13 11:00am Office Visit APARNA R JEFF 04/09/13 10:30am Office Visit APARNA R JEFF 03/26/13 11:00am
--- OUTSIDE RECORDS SUMMARY | 2016-11-10 07:31 | XMS REPORT | Continuity of Care Document ---
Author Author [facility] Organization [facility] Address Unknown Phone Unavailable Care Team Providers Care Oracle R12 Developer Name Role Phone APARNA AGUILAR MD Unavailable [phone] Insurance Providers Payer Name Policy Number Subscriber Name Relationship Wps Medicare [id number] Amee Guillen 01 Self / Same As Patient For Life [id number] Amee Guillen Self / Same As Patient Advance Directives Directive Response Recorded Date/Time Patient Resuscitation Status Full Code 06/15/14 3:31am Advance Directives Yes 06/15/14 3:31am Living Will Yes 06/15/14 3:31am Health Care Power of Foam Molder Yes 06/15/14 3:31am Chief Complaint and Reason [...] 05/27/13 08/25/13 Discontinued Fluticasone Propionate (Nasal) 2 [place] NA DAILY 1 Qty 05/27/13 Discontinued Levofloxacin 500 Mg PO DAILY 10 Qty 05/29/13 07/31/13 Discontinued Magnesium Oxide 400 Mg PO TWICE A DAY For NUTRIENT REPLACEMENT 180 Qty 06/30/13 04/07/14 Discontinued Fluconazole 100 Mg PO WEEKLY For PREVENT INFECTION 12 Qty 06/30/1303/07 Discontinued Tamsulosin Hcl 0.4 Mg PO DAILY For DYSUREA 90 Qty 06/30/13 Active Fluticasone Propionate (Nasal) 2 [place] NA DAILY For CONGESTION 3 Qty Active [...] Qty 02/08/14 Active Fluticasone Propionate (Nasal) 1-2 [place] NA DAILY For STUFFY NOSE 1 Qty [...] For CHF 30 Qty 02/19/14 02/26/14 Discontinued [place]-3 Fatty Acids 1,000 Mg PO DAILY 03/06/14 [...] Qty 06/02/14 Active Fluticasone Propionate (Nasal) 1-2 [place] NA DAILY For STUFFY NOSE 1 Qty [...] F (96.0 - 99.9) Temperature (Calculated Celsius) 36.65990 degrees C Temperature (Calculated Celsius) 36.28226 degrees C (36.4 - 37.5) Temperature (Fahrenheit) 98.4 degrees F (96.0 - 99.9) Temperature Source Oral Temperature Source Axillary Temp 98.4 degrees F (96.0 - 99.9) Temperature (Calculated Celsius) 36.96557 degrees C Pulse Pulse Rate (adult) 102 [...] April 29, 2014 8:54am Lab Scanned Report [id number] Lactate Dehydrogenase September 28, 1998 4:10pm 152 [...] Synovial Fluid WBC September 27, 1998 12:00am 99833.0 /uL PH Target Cells August 05, 2001 [...] NONE SOURCE: URINE, CLEAN CATCH Urine Specific [place] June 15, 2014 12:35am 1.025 1.005-1.030 SOURCE: [...] Encounter Location Date/Time Discharged Inpatient Aidaeleni Benson [facility] 06/15/14 1:11am Registered Clinic [facility]ida B. [facility] 06/14/14 11:24am Office Visit APARNA AGUILAR 06/14/14 11:00am Office Visit APARNA AGUILAR 06/02/14 11:15am Discharged Inpatient [place] [facility] 05/21/14 10:17pm Office Visit APARNA AGUILAR 04/26/14 8:45am Office Visit APARNA AGUILAR 04/20/14 1:30pm Registered Clinic Aida Benson [facility] 04/20/14 11:00am Office Visit APARNA AGUILAR 04/14/14 11:15am Office Visit APARNA AGUILAR 04/01/14 10:30am Registered Clinic Aida Benson [facility] 03/23/14 10:53am Office Visit APARNA AGUILAR 03/18/14 10:15am Office Visit APARNA AGUILAR 03/11/14 11:15am Registered Clinic Aida Benson [facility] 03/09/14 11:00am Discharged Inpatient [place] [facility] 03/06/14 8:25pm Office Visit APARNA AGUILAR 03/05/14 11:15am Office Visit APARNA R JEFF 03/01/14 9:15am Office Visit APARNA R JEFF 02/26/14 10:00am Registered Clinic Aida Benson [facility] 02/23/14 11:35am Discharged Inpatient Aida Benson [facility] 02/16/14 8:34pm Discharged Inpatient Aida Benson [facility] 02/12/14 2:30am Departed Emergency Room Aida Benson [facility] 02/08/14 10:15am Office Visit APARNA R JEFF 02/02/14 2:15pm Registered Clinic Aida Benson [facility] 02/02/14 1:31pm Office Visit APARNA R JEFF 01/21/14 10:00am Registered Clinic Aida Benson [facility] 01/12/14 11:43am Office Visit APARNA R JEFF 01/07/14 10:00am Registered Clinic Aida Benson [facility] 12/22/13 12:49pm Office Visit APARNA R JEFF 12/22/13 11:30am Office Visit APARNA R JEFF 12/10/13 11:00am Registered Recurring Aida Benson [facility] 12/01/13 3:00pm Registered Clinic Aida Benson [facility] 12/01/13 2:25pm Discharged Inpatient Aida Benson [facility] 11/27/13 2:30am Office Visit APARNA R JEFF 11/26/13 10:45am Office Visit APARNA R JEFF 11/12/13 11:30am Office Visit APARNA R JEFF 11/05/13 9:15am Discharged Inpatient Aida Benson [facility] 10/30/13 12:37pm Office Visit APARNA R JEFF 10/27/13 10:45am Office Visit APARNA R JEFF 10/06/13 11:15am Office Visit APARNA R JEFF 09/24/13 10:00am Office Visit APARNA R JEFF 09/08/13 10:30am Office Visit APARNA R JEFF 08/25/13 10:00am Office Visit APARNA R JEFF 08/18/13 11:00am Registered Clinic Aida Benson [facility] 08/11/13 2:45pm Office Visit APARNA R [...]
--- OUTSIDE RECORDS SUMMARY | 2016-11-10 07:32 | XMS REPORT | Continuity of Care Document ---
Author Author [facility] Organization [facility] Address Unknown Phone Unavailable Care Team Providers Care Wardrobe Specialist Name Role Phone APARNA AGUILAR MD Unavailable [phone] Insurance Providers Payer Name Policy Number Subscriber Name Relationship Wps Medicare [id number] Amee Guillen 01 Self / Same As Patient For Life [id number] Amee Guillen Self / Same As Patient [...] 05/27/13 08/25/13 Discontinued Fluticasone Propionate (Nasal) 2 [place] NA DAILY 1 Qty 05/27/13 Discontinued Levofloxacin [...] Qty 02/08/14 Active Fluticasone Propionate (Nasal) 1-2 [place] NA DAILY For STUFFY NOSE 1 Qty [...] F (96.0 - 99.9) Temperature (Calculated Celsius) 36.89441 degrees C Temperature (Calculated Celsius) 36.61763 degrees C (36.4 - 37.5) Temperature (Fahrenheit) 98.4 degrees F (96.0 - 99.9) Temperature Source Oral Temperature Source Oral Temp 98.4 degrees F (96.0 - 99.9) Temperature (Calculated Celsius) 36.27882 degrees C Pulse Pulse Rate (adult) 94 [...] April 29, 2014 8:54am Lab Scanned Report [id number] Lactate Dehydrogenase September 28, 1998 4:10pm 152 [...] Synovial Fluid WBC September 27, 1998 12:00am 13884.0 /uL PH Target Cells August 05, 2001 [...] NONE SOURCE: URINE, CLEAN CATCH Urine Specific [place] July 09, 2014 6:35am 1.015 1.005-1.030 SOURCE: [...] Encounters En[facility] Office Visit APARNA AGUILAR 10/26/14 10:00am [facility] 10[facility] Office Visit APARNA AGUILAR 10/13/14 1:00pm Registered Clinic [place] [facility] 10/12/14 10:45am Registered Clinic [facility] 09/28/14 10:32am Office Visit APARNA AGUILAR 09/28/14 10:15am Office Visit APARNA AGUILAR 09/15/14 11:15am Office Visit APARNA AGUILAR 09/01/14 10:45am Registered Clinic [facility]ida B[facility] 08/31/14 10:54am Office Visit APARNA AGUILAR 08/18/14 10:45am Office Visit APARNA AGUILAR 08/10/14 10:30am [facility] 4:[facility] Office Visit APARNA AGUILAR 08/03/14 11:15am Registered Clinic [facility]ida [facility] 08/03/14 10:26am Office Visit APARNA AGUILAR 07/22/14 10:45am Discharged Inpatient [place] [facility] [facility] 07/09/14 11:21am Office Visit APARNA AGUILAR 07/08/14 9:00am Registered Clinic Aida Benson [facility] 07/06/14 10:21am Office Visit APANRA DELUCAHNS 07/02/14 10:30am Discharged Inpatient Aida Benson [facility] 06/15/14 1:11am Registered Clinic Aida Benson [facility] 06/14/14 11:24am Office Visit APARNA R JEFF 06/14/14 11:00am Office Visit APARNA R JEFF 06/02/14 11:15am Discharged Inpatient Aida Benson [facility] 05/21/14 10:17pm Office Visit APARNA Vitaliy DELUCAJEFF 04/26/14 8:45am Office Visit APARNA Vitaliy DELUCAJEFF 04/20/14 1:30pm Registered Clinic Aida Benson [facility] 04/20/14 11:00am Office Visit APARNA R JEFF 04/14/14 11:15am Office Visit APARNA DELUCAHNS 04/01/14 10:30am Registered Clinic Aida Benson [facility] 03/23/14 10:53am Office Visit APARNA R JEFF 03/18/14 10:15am Office Visit APARNA R JEFF 03/11/14 11:15am Registered Clinic Aida Benson [facility] 03/09/14 11:00am Discharged Inpatient Aida Ramon Benson [facility] 03/06/14 8:25pm Office Visit APARNA R JEFF 03/05/14 11:15am Office Visit APARNA Vitaliy JEFF 03/01/14 9:15am Office Visit APARNA DELUCAHNS 02/26/14 10:00am Registered Clinic Aida Benson [facility] 02/23/14 11:35am Discharged Inpatient Aida Benson [facility] 02/16/14 8:34pm Discharged Inpatient Aida Benson [facility] 02/12/14 2:30am Departed Emergency Room Aidaeleni Benson [facility] 02/08/14 10:15am Office Visit APARNA DELUCAHNS 02/02/14 2:15pm Registered Clinic Aida Benson [facility] 02/02/14 1:31pm Office Visit APARNA DELUCAHNS 01/21/14 10:00am Registered Clinic Aida Benson [facility] 01/12/14 11:43am Office Visit APARNA AGUILAR 01/07/14 10:00am Registered Clinic Aida Benson [facility] 12/22/13 12:49pm Office Visit APARNA AGUILAR 12/22/13 11:30am Office Visit APARNA AGUILAR 12/10/13 11:00am Registered [facility] Aida Benson [facility] 12/01/13 3:00pm Registered Clinic Aida Benson [facility] 12/01/13 2:25pm Discharged Inpatient Aida Benson [facility] 11/27/13 2:30am Office Visit APARNA AGUILAR 11/26/13 10:45am Office Visit APARNA AGUILAR 11/12/13 11:30am Office Visit APARNA AGUILAR 11/05/13 9:15am Discharged Inpatient Aida Benson [facility] 10/30/13 12:37pm Office Visit APARNA AGUILAR 10/27/13 10:45am
--- OUTSIDE RECORDS SUMMARY | 2016-11-10 07:33 | XMS REPORT | Continuity of Care Document ---
Author Author [facility] Organization [facility] Address Unknown Phone Unavailable Care Team Providers Care Bus Aide Name Role Phone APARNA AGUILAR MD Unavailable [phone] Insurance Providers Payer Name Policy Number Subscriber Name Relationship Wps Medicare [id number] Amee Guillen Self / Same As Patient For Life [id number] Amee Guillen Self / Same As Patient Chief Complaint and Reason for Visit Chief Complaint Medical Problem Minor Reason for Visit [id number] Weakness [id number] Pneumonia Hyperkalemia Problems Medical Problems Problem Onset [...] 12/04/13 03/04/14 Discontinued Fluticasone Propionate (Nasal) 2 [place] NA DAILY 1 Qty 05/27/13 Discontinued Levofloxacin 500 Mg PO DAILY 10 Qty 05/29/13 07/31/13 Discontinued Magnesium Oxide 400 Mg PO TWICE A DAY 180 Qty 06/30/13 Active Fluconazole 100 Mg PO WEEKLY 12 Qty 06/30/13 Active Tamsulosin Hcl 0.4 Mg PO DAILY 90 Qty 06/30/13 Active Fluticasone Propionate (Nasal) 2 [place] NA DAILY 3 Qty 06/30/13 Active [...] Qty 02/08/14 Active Fluticasone Propionate (Nasal) 1-2 [place] NA DAILY 1 Qty 02/12/14 Active [...] PO DAILY 30 Qty 02/19/14 02/26/14 Discontinued [place]-3 Fatty Acids 1,000 Mg PO DAILY 03/06/14 [...] Tolerated Physician Follow-up Appt #1: Dr Aguilar [phone] F/U Appt: One Week Discharge Instructions 1. [...] Discharge Stable Prescriptions See Medications Section Referrals APANRA AGUILAR MD Functional Status No functional status [...] January 26, 2014 2:09pm Lab Scanned Report [id number] Lactate Dehydrogenase September 28, 1998 4:10pm 152 [...] Synovial Fluid WBC September 27, 1998 12:00am 42253.0 /uL PH Target Cells August 05, 2001 [...] 05SOURCE : URINE, CLEAN CATCH Urine Specific [place] March 06, 2014 6:15pm 1.015 1.005-1.030 SOURCE: [...] Encounter Location Date/Time Registered Clinic Aida Benson [facility] 03/09/14 11:00am Discharged Inpatient Aida Benson [facility] 03/06/14 8:25pm Office Visit APARNA AGUILAR 03/05/14 11:15am Office Visit APARNA AGUILAR 03/01/14 9:15am Office Visit APARNA AGUILAR 02/26/14 10:00am Registered Clinic Aida Benson [facility] 02/23/14 11:35am Discharged Inpatient Aidaeleni Benson [facility] 02/16/14 8:34pm Discharged Inpatient Aidaeleni Benson [facility] 02/12/14 2:30am Departed Emergency Room [place] Iliana Marcelino [facility] 02/08/14 10:15am Office Visit APARNA AGUILAR 02/02/14 2:15pm Registered Clinic Aida Benson [facility] 02/02/14 1:31pm Office Visit APARNA AGUILAR 01/21/14 10:00am Registered Clinic Aida Benson [facility] 01/12/14 11:43am Office Visit APARNA AGUILAR 01/07/14 10:00am Registered Clinic Aida Benson [facility] 12/22/13 12:49pm Office Visit APARNA AGUILAR 12/22/13 11:30am Office Visit APARNA AGUILAR 12/10/13 11:00am Registered [facility] Aida Benson [facility] 12/01/13 3:00pm Registered Clinic Aida Benson [facility] 12/01/13 2:25pm Discharged Inpatient Aida Benson [facility] 11/27/13 2:30am Office Visit APARNA AGUILAR 11/26/13 10:45am Office Visit APARNA R JEFF 11/12/13 11:30am Office Visit APARNA R JEFF 11/05/13 9:15am Discharged Inpatient Aida Benson [facility] 10/30/13 12:37pm Office Visit APARNA R JEFF 10/27/13 10:45am Office Visit APARNA R JEFF 10/06/13 11:15am Office Visit APARNA R JEFF 09/24/13 10:00am Office Visit APARNA R JEFF 09/08/13 10:30am Office Visit APARNA R JEFF 08/25/13 10:00am Office Visit APARNA R JEFF 08/18/13 11:00am Registered Clinic Aida Benson [facility] 08/11/13 2:45pm Office Visit APARNA R JEFF 08/11/13 2:15pm Office Visit APARNA R JEFF 08/05/13 10:45am Office Visit APARNA R JEFF 07/31/13 1:00pm Office Visit APARNA R JEFF 07/30/13 10:05am Office Visit APARNA R JEFF 07/24/13 11:30am Office Visit APARNA R JEFF 07/14/13 10:30am Office Visit APARNA R JEFF 06/30/13 10:30am Registered Clinic Aida Benson [facility] 06/09/13 11:37am Office Visit APARNA R JEFF 06/09/13 11:30am Registered Clinic Aida Benson [facility] 06/02/13 11:35am Office Visit APARNA R JEFF 06/02/13 11:15am Discharged Inpatient Aida Benson [facility] 05/28/13 7:10am Office Visit APARNA R JEFF 05/27/13 1:00pm Discharged Inpatient Aida Benson [facility] 05/25/13 9:20am Office Visit APARNA R JEFF 05/19/13 11:15am Registered Clinic Aida Benson [facility] 05/12/13 1:36pm Office Visit APARNA R JEFF 05/12/13 1:15pm Office Visit APARNA R JEFF 05/06/13 11:15am Office Visit APARNA R JEFF 04/22/13 11:00am Office Visit APARNA R JEFF 04/09/13 10:30am Office Visit APARNA AGUILAR 03/26/13 11:00am Office Visit APARNA AGUILAR 03/12/13 10:15am
--- OUTSIDE RECORDS SUMMARY | 2016-11-10 07:33 | XMS REPORT | Continuity of Care Document ---
Author Author [facility] Organization [facility] Address Unknown Phone Unavailable Care Team Providers Care Economic Adviser Name Role Phone APARNA AGUILAR MD Unavailable [phone] Insurance Providers Payer Name Policy Number Subscriber Name Relationship Wps Medicare [id number] Amee Guillen 01 Self / Same As Patient For Life [id number] Amee Guillen Self / Same As Patient [...] 05/27/13 08/25/13 Discontinued Fluticasone Propionate (Nasal) 2 [place] NA DAILY 1 Qty 05/27/13 Discontinued Levofloxacin 500 Mg PO DAILY 10 Qty 05/29/13 07/31/13 Discontinued Magnesium Oxide 400 Mg PO TWICE A DAY For NUTRIENT REPLACEMENT 180 Qty 06/30/13 04/07/14 Discontinued Fluconazole 100 Mg PO WEEKLY For PREVENT INFECTION 12 Qty 06/30/1303/07 Discontinued Tamsulosin Hcl 0.4 Mg PO DAILY For DYSUREA 90 Qty 06/30/13 Active Fluticasone Propionate (Nasal) 2 [place] NA DAILY For CONGESTION 3 Qty Active [...] Qty 02/08/14 Active Fluticasone Propionate (Nasal) 1-2 [place] NA DAILY For STUFFY NOSE 1 Qty [...] For CHF 30 Qty 02/19/14 02/26/14 Discontinued [place]-3 Fatty Acids 1,000 Mg PO DAILY 03/06/14 [...] Qty 06/02/14 Active Fluticasone Propionate (Nasal) 1-2 [place] NA DAILY For STUFFY NOSE 1 Qty [...] F (96.0 - 99.9) Temperature (Calculated Celsius) 36.27985 degrees C Temperature (Calculated Celsius) 36.45731 degrees C (36.4 - 37.5) Temperature (Fahrenheit) 98.4 degrees F (96.0 - 99.9) Temperature Source Oral Temperature Source Axillary Temp 98.4 degrees F (96.0 - 99.9) Temperature (Calculated Celsius) 36.91134 degrees C Pulse Pulse Rate (adult) 69 [...] April 29, 2014 8:54am Lab Scanned Report [id number] Lactate Dehydrogenase September 28, 1998 4:10pm 152 [...] Synovial Fluid WBC September 27, 1998 12:00am 20474.0 /uL PH Target Cells August 05, 2001 [...] NONE SOURCE: URINE, CLEAN CATCH Urine Specific [place] June 15, 2014 12:35am 1.025 1.005-1.030 SOURCE: [...] Date/Time Registered Clinic Aida Benson [facility] 07/06/14 10:21am Office Visit APARNA Vitaliy JEFF 07/02/14 10:30am Discharged Inpatient Aida Benson [facility] 06/15/14 1:11am Registered Clinic Aida Benson [facility] 06/14/14 11:24am Office Visit APARNA R JEFF 06/14/14 11:00am Office Visit APARNA Vitaliy JEFF 06/02/14 11:15am Discharged Inpatient Aida Benson [facility] 05/21/14 10:17pm Office Visit APARNA R JEFF 04/26/14 8:45am Office Visit APARNA R JEFF 04/20/14 1:30pm Registered Clinic Aida Benson [facility] 04/20/14 11:00am Office Visit APARNA R JEFF 04/14/14 11:15am Office Visit APARNA R JEFF 04/01/14 10:30am Registered Clinic Aida Benson [facility] 03/23/14 10:53am Office Visit APARNA Burks JEFF 03/18/14 10:15am Office Visit APARNA R JEFF 03/11/14 11:15am Registered Clinic Aida Benson [facility] 03/09/14 11:00am Discharged Inpatient Aida Benson [facility] 03/06/14 8:25pm Office Visit APARNA R JEFF 03/05/14 11:15am Office Visit APARNA R JEFF 03/01/14 9:15am Office Visit APARNA Vitaliy JEFF 02/26/14 10:00am Registered Clinic Aida Benson [facility] 02/23/14 11:35am Discharged Inpatient Aida Benson [facility] 02/16/14 8:34pm Discharged Inpatient Aida Benson [facility] 02/12/14 2:30am Departed Emergency Room Aida Benosn [facility] 02/08/14 10:15am Office Visit APARNA R JEFF 02/02/14 2:15pm Registered Clinic Aida Benson [facility] 02/02/14 1:31pm Office Visit APARNA R JEFF 01/21/14 10:00am Registered Clinic Aida Benson [facility] 01/12/14 11:43am Office Visit APARNA R JEFF 01/07/14 10:00am Registered Clinic Aida Benson [facility] 12/22/13 12:49pm Office Visit APARNA R JEFF 12/22/13 11:30am Office Visit APARNA R JEFF 12/10/13 11:00am Registered Recurring Aida Benson [facility] 12/01/13 3:00pm Registered Clinic Aida Benson [facility] 12/01/13 2:25pm Discharged Inpatient Aida Benson [facility] 11/27/13 2:30am Office Visit APARNA R JEFF 11/26/13 10:45am Office Visit APARNA R JEFF 11/12/13 11:30am Office Visit APARNA R JEFF 11/05/13 9:15am Discharged Inpatient Aida Benson [facility] 10/30/13 12:37pm Office Visit APARNA R JEFF 10/27/13 10:45am Office Visit APARNA R JEFF 10/06/13 11:15am Office Visit APARNA R JEFF 09/24/13 10:00am Office Visit APARNA R JEFF 09/08/13 10:30am Office Visit APARNA R JEFF 08/25/13 10:00am Office Visit APARNA R JEFF 08/18/13 11:00am Registered Clinic Aida Benson [facility] 08/11/13 2:45pm Office Visit APARNA R JEFF 08/11/13 2:15pm Office Visit APARNA R JEFF 08/05/13 10:45am Office Visit APARNA R JEFF 07/31/13 1:00pm Office Visit APARNA R JEFF 07/30/13 10:05am Office Visit APARNA R JEFF 07/24/13 11:30am Office Visit APARNA R JEFF 07/14/13 10:30am
--- OUTSIDE RECORDS SUMMARY | 2016-11-10 07:34 | XMS REPORT | Continuity of Care Document ---
Author Author [facility] Organization [facility] Address Unknown Phone Unavailable Care Team Providers Care Cloth Shrinking Machine Operator Name Role Phone APARNA AGUILAR MD Unavailable [phone] Insurance Providers Payer Name Policy Number Subscriber Name Relationship Wps Medicare [id number] Amee Guillen 01 Self / Same As Patient For Life [id number] Amee Guillen Self / Same As Patient [...] 05/27/13 08/25/13 Discontinued Fluticasone Propionate (Nasal) 2 [place] NA DAILY 1 Qty 05/27/13 Discontinued Levofloxacin 500 Mg PO DAILY 10 Qty 05/29/13 07/31/13 Discontinued Magnesium Oxide 400 Mg PO TWICE A DAY 180 Qty 06/30/13 Active Fluconazole 100 Mg PO WEEKLY 12 Qty 06/30/13 Active Tamsulosin Hcl 0.4 Mg PO DAILY 90 Qty 06/30/13 Active Fluticasone Propionate (Nasal) 2 [place] NA DAILY 3 Qty 06/30/13 Active Minocycline [...] Qty 02/08/14 Active Fluticasone Propionate (Nasal) 1-2 [place] NA DAILY 1 Qty 02/12/14 Active Nitroglycerin [...] 2014 8:40am Memory Description Short term intact half-way intact February 15, 2014 1:23pm Cognitive Skills [...] - 99.9) 02/15/2014 10:55am Temperature (Calculated Celsius) 36.95743 degrees C 02/15/2014 10:55am Temperature Source Oral [...] January 26, 2014 2:09pm Lab Scanned Report [id number] Lactate Dehydrogenase September 28, 1998 4:10pm 152 [...] Synovial Fluid WBC September 27, 1998 12:00am 35451.0 /uL PH Target Cells August 05, 2001 [...] 05SOURCE : URINE, CLEAN CATCH Urine Specific [place] February 08, 2014 12:55pm 1.015 1.005-1.030 SOURCE: [...] Encounters Encounter Location Date[facility]Time [facility] 2:30[facility] Departed Emergency Room [facility] 02/08/14 10:15am Office Visit APARNA Vitaliy JEFF 02/02/14 2:15pm Registered Clinic [facility] 02/02/14 1:31pm Office Visit APARNA TURCIOSS 01/21/14 10:00am Registered Clinic [place] [facility] 01/12/14 11:43am Office Visit APARNA TURCIOSS 01/07/14 10:00am Reg[facility] 12/22/13 12:49pm Office Visit APARNA TURCIOSS 12/22/13 11:30am Office Visit APARNA TURCIOSS 12/10/13 11:00am Registered [facility] 12/01/13 3:00pm Registered Clinic [place] [facility] 12/01/13 2:25pm Discharged Inpatient [place] [facility] 11/27/13 2:30am Office Visit APARNA TURCIOSS 11/26/13 10:45am Office Visit APARNA TURCIOSS 11/12/13 11:30am Office Visit APARNA TURCIOSS 11/05/13 9:15am Discharged Inpatient [facility] 10/30/13 12:37pm Office Visit APARNA R JEFF 10/27/13 10:45am Office Visit APARNA R JEFF 10/06/13 11:15am Office Visit APARNA R JEFF 09/24/13 10:00am Office Visit APARNA R JEFF 09/08/13 10:30am Office Visit APARNA R JEFF 08/25/13 10:00am Office Visit APARNA R JEFF 08/18/13 11:00am Registered Clinic Aida Benson [facility] 08/11/13 2:45pm Office Visit APARNA R JEFF 08/11/13 2:15pm Office Visit APARNA R JEFF 08/05/13 10:45am Office Visit APARNA R JEFF 07/31/13 1:00pm Office Visit APARNA R JEFF 07/30/13 10:05am Office Visit APARNA R JEFF 07/24/13 11:30am Office Visit APARNA R JEFF 07/14/13 10:30am Office Visit APARNA R JEFF 06/30/13 10:30am Registered Clinic Aida Benson [facility] 06/09/13 11:37am Office Visit APARNA R JEFF 06/09/13 11:30am Registered Clinic Aida Benson [facility] 06/02/13 11:35am Office Visit APARNA R JEFF 06/02/13 11:15am Discharged Inpatient Aida Benson [facility] 05/28/13 7:10am Office Visit APARNA R JEFF 05/27/13 1:00pm Discharged Inpatient Aida Benson [facility] 05/25/13 9:20am Office Visit APARNA R JEFF 05/19/13 11:15am Registered Clinic Aida Benson [facility] 05/12/13 1:36pm Office Visit APARNA R [...]
--- OUTSIDE RECORDS SUMMARY | 2016-11-10 07:35 | XMS REPORT | Continuity of Care Document ---
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 Name Role Phone APARNA AGUILAR MD Unavailable [phone] Insurance Providers Payer Name Policy Number Subscriber Name Relationship Wps Medicare [id number] Amee Guillen 01 Self / Same As Patient For Life [id number] Amee Guillen Self / Same As Patient Advance Directives Directive Response Recorded Date/Time Patient Resuscitation Status Full Code 03/06/14 8:30pm Advance Directives Yes 03/06/14 8:30pm Living Will Yes 03/06/14 8:30pm Health Care Power of Adult Live In Caregiver Yes 03/06/14 8:30pm Chief Complaint and Reason [...] 05/27/13 08/25/13 Discontinued Fluticasone Propionate (Nasal) 2 [place] NA DAILY 1 Qty 05/27/13 Discontinued Levofloxacin 500 Mg PO DAILY 10 Qty 05/29/13 07/31/13 Discontinued Magnesium Oxide 400 Mg PO TWICE A DAY 180 Qty 06/30/13 Active Fluconazole 100 Mg PO WEEKLY 12 Qty 06/30/13 Active Tamsulosin Hcl 0.4 Mg PO DAILY 90 Qty 06/30/13 Active Fluticasone Propionate (Nasal) 2 [place] NA DAILY 3 Qty 06/30/13 Active Minocycline [...] Qty 02/08/14 Active Fluticasone Propionate (Nasal) 1-2 [place] NA DAILY 1 Qty 02/12/14 Active Nitroglycerin [...] PO DAILY 30 Qty 02/19/14 02/26/14 Discontinued [place]-3 Fatty Acids 1,000 Mg PO DAILY 03/06/14 [...] Tolerated Physician Follow-up Appt #1: Dr Aguilar [phone] F/U Appt: One Week Discharge Instructions 1. [...] Walker Denture(s) Returned: Lower Dentures Handouts Given: [employer] Home Equipment: Walker Plan of Care Discharge [...] 2014 11:00pm Memory Description Short term intact superintendent terminal intact March 07, 2014 2:55pm Cognitive Skills [...] January 26, 2014 2:09pm Lab Scanned Report [id number] Lactate Dehydrogenase September 28, 1998 4:10pm 152 [...] Synovial Fluid WBC September 27, 1998 12:00am 94540.0 /uL PH Target Cells August 05, 2001 [...] 05SOURCE : URINE, CLEAN CATCH Urine Specific [place] March 06, 2014 6:15pm 1.015 1.005-1.030 SOURCE: [...] Encounter Location Date/Time Discharged Inpatient [facility] 03/06/14 8:25pm Office Visit APARNA AGUILAR 03/05/14 11:15am Office Visit APARNA AGUILAR 03/01/14 9:15am Office Visit APARNA AGUILAR 02/26/14 10:00am Registered Clinic Aida Benson [facility] 02/23/14 11:35am Discharged Inpatient Aidaeleni Benson [facility] 02/16/14 8:34pm Discharged Inpatient Aida Benson [facility] 02/12/14 2:30am Departed Emergency Room Aidaeleni Benson [facility] 02/08/14 10:15am Office Visit APARNA R JEFF 02/02/14 2:15pm Registered Clinic Aida Benson [facility] 02/02/14 1:31pm Office Visit APARNA R JEFF 01/21/14 10:00am Registered Clinic Aida Navarro Marcel[facility] 01/12/14 11:43am Office Visit APARNA R JEFF 01/07/14 10:00am Registered Clinic Aida Benson [facility] 12/22/13 12:49pm Office Visit APARNA R JEFF 12/22/13 11:30am Office Visit APARNA R JEFF 12/10/13 11:00am Registered Recurring Aidaeleni Benson [facility] 12/01/13 3:00pm Registered Clinic [facility]ida BarrientosJermain [facility] 12/01/13 2:25pm Discharged Inpatient Aida Benson [facility] 11/27/13 2:30am Office Visit APARNA R JEFF 11/26/13 10:45am Office Visit APARNA R JEFF 11/12/13 11:30am Office Visit APARNA R JEFF 11/05/13 9:15am Discharged Inpatient Aida Benson [facility] 10/30/13 12:37pm Office Visit APARNA R JEFF 10/27/13 10:45am Office Visit APARNA R JEFF 10/06/13 11:15am Office Visit APARNA R JEFF 09/24/13 10:00am Office Visit APARNA R JEFF 09/08/13 10:30am Office Visit APARNA R JEFF 08/25/13 10:00am Office Visit APARNA R JEFF 08/18/13 11:00am Registered Clinic Aida Benson [facility] 08/11/13 2:45pm Office Visit APARNA R JEFF 08/11/13 2:15pm Office Visit APARNA R JEFF 08/05/13 10:45am Office Visit APARNA R JEFF 07/31/13 1:00pm Office Visit APARNA AGUILAR 07/30/13 10:05am Office Visit APARNA AGUILAR 07/24/13 11:30am Office Visit APARNA AGUILAR 07/14/13 10:30am Office Visit APARNA AGUILAR 06/30/13 10:30am Registered Clinic Aida Benson [facility] 06/09/13 11:37am Office Visit APARNA AGUILAR 06/09/13 11:30am Registered Clinic Aida Benson [facility] 06/02/13 11:35am Office Visit APARNA AGUILAR 06/02/13 11:15am Discharged Inpatient Aida Benson [facility] 05/28/13 7:10am Office Visit APARNA AGUILAR 05/27/13 1:00pm Discharged Inpatient Aida Benson [facility] 05/25/13 9:20am Office Visit APARNA AGUILAR 05/19/13 11:15am Registered Clinic Aida Benson [facility] 05/12/13 1:36pm Office Visit APARNA AGUILAR [...]
--- OUTSIDE RECORDS SUMMARY | 2016-11-10 07:36 | XMS REPORT | Continuity of Care Document ---
Author Author [facility] Organization [facility] Address Unknown Phone Unavailable Care Team Providers Care Buffer Machine Name Role Phone APARNA AGUILAR MD Unavailable [phone] Insurance Providers Payer Name Policy Number Subscriber Name Relationship Wps Medicare [id number] Amee uGillen Self / Same As Patient For Life [id number] Amee Guillen Self / Same As Patient Chief Complaint and Reason for Visit Chief Complaint Dyspnea Reason for Visit Dyspnea Hypoxia [id number] Problems Medical Problems Problem Onset Date Status [...] 05/27/13 08/25/13 Discontinued Fluticasone Propionate (Nasal) 2 [place] NA DAILY 1 Qty 05/27/13 Discontinued Levofloxacin 500 Mg PO DAILY 10 Qty 05/29/13 07/31/13 Discontinued Magnesium Oxide 400 Mg PO TWICE A DAY 180 Qty 06/30/13 Active Fluconazole 100 Mg PO WEEKLY 12 Qty 06/30/13 Active Tamsulosin Hcl 0.4 Mg PO DAILY 90 Qty 06/30/13 Active Fluticasone Propionate (Nasal) 2 [place] NA DAILY 3 Qty 3 month supply [...] Nursing Instructions Physician Follow-up Appointment: Dr Aguilar [phone] Call for Appointment: Yes Comment: F/U 1 [...] Synovial Fluid WBC September 27, 1998 12:00am 09588.0 /uL PH Target Cells August 05, 2001 [...] 05SOURCE : URINE, CLEAN CATCH Urine Specific [place] October 30, 2013 4:48pm 1.015 1.005-1.030 HAS [...] August 25, 2013 10:32am Lab Scanned Report [id number] Bedside Troponin I November 27, 2013 1:15am [...] procedures. Encounters Encounter Location Date/Time Registered Clinic [facility] 12/01/13 2:25pm Discharged Inpatient [facility] 11/27/13 2:30am Office Visit APARNA AGUILAR 11/26/13 10:45am Office Visit APARNA AGUILAR 11/12/13 11:30am Office Visit APARNA TURCIOSS 11/05/13 9:15am Discharged Inpatient [facility] 10/30/13 12:37pm Office Visit APARNA TURCIOSS 10/27/13 10:45am Office Visit APARNA TURCIOSS 10/06/13 11:15am Office Visit APARNA TURCIOSS 09/24/13 10:00am Office Visit APARNA TURCIOSS 09/08/13 10:30am Office Visit APARNA TURCIOSS 08/25/13 10:00am Office Visit APARNA TURCIOSS 08/18/13 11:00am Registered Clinic [facility] 08/11/13 2:45pm Office Visit APARNA R JEFF 08/11/13 2:15pm Office Visit APARNA R JEFF 08/05/13 10:45am Office Visit APARNA R JEFF 07/31/13 1:00pm Office Visit APARNA R JEFF 07/30/13 10:05am Office Visit APARNA R JEFF 07/24/13 11:30am Office Visit APARNA R JEFF 07/14/13 10:30am Office Visit APARNA R JEFF 06/30/13 10:30am Registered Clinic Aida Benson [facility] 06/09/13 11:37am Office Visit APARNA R JEFF 06/09/13 11:30am Registered Clinic Aida Benson [facility] 06/02/13 11:35am Office Visit APARNA R JEFF 06/02/13 11:15am Discharged Inpatient Aida Benson [facility] 05/28/13 7:10am Office Visit APARNA R JEFF 05/27/13 1:00pm Discharged Inpatient Aida Benson [facility] 05/25/13 9:20am Office Visit APARNA R JEFF 05/19/13 11:15am Registered Clinic Aida Benson [facility] 05/12/13 1:36pm Office Visit APARNA [...] AGUILAR 12/16/12 10:30am Discharged Inpatient Aida Benson [facility] 12/08/12 10:20am Office Visit APARNA AGUILAR 12/03/12 9:00am
--- OUTSIDE RECORDS SUMMARY | 2016-11-10 07:36 | XMS REPORT | Continuity of Care Document ---
Author Author [facility] Organization [facility] Address Unknown Phone Unavailable Care Team Providers Care Claims Auditor Name Role Phone APARNA AGUILAR MD Unavailable [phone] Insurance Providers Payer Name Policy Number Subscriber Name Relationship Wps Medicare [id number] Amee Guillen 01 Self / Same As Patient For Life [id number] Amee Guillen Self / Same As Patient [...] 05/27/13 08/25/13 Discontinued Fluticasone Propionate (Nasal) 2 [place] NA DAILY 1 Qty 05/27/13 Discontinued Levofloxacin 500 Mg PO DAILY 10 Qty 05/29/13 07/31/13 Discontinued Magnesium Oxide 400 Mg PO TWICE A DAY 180 Qty 01/07/14 Active Fluconazole 100 Mg PO WEEKLY 12 Qty 06/30/13 Active Tamsulosin Hcl 0.4 Mg PO DAILY 90 Qty 06/30/13 Active Fluticasone Propionate (Nasal) 2 [place] NA DAILY 3 Qty 3 month supply [...] Synovial Fluid WBC September 27, 1998 12:00am 32440.0 /uL PH Target Cells August 05, 2001 [...] 05SOURCE : URINE, CLEAN CATCH Urine Specific [place] October 30, 2013 4:48pm 1.015 1.005-1.030 HAS [...] August 25, 2013 10:32am Lab Scanned Report [id number] Bedside Troponin I November 27, 2013 1:15am [...] Encounter Location Date/Time Registered Clinic Aida Benson [facility] 01/12/14 11:43am Office Visit APARNA TURCIOSS 01/07/14 10:00am Registered Clinic [facility] 12/22/13 12:49pm Office Visit APARNA TURCIOSS 12/22/13 11:30am Office Visit APARNA TURCIOSS 12/10/13 11:[facility] 12/01/13 3:00pm Registered Clinic [facility] 12/01/13 2:25pm [facility] [place] [facility] 11/27/13 2:30am Office Visit APARNA TURCIOSS 11/26/13 10:45am Office Visit APARNA DELUCAHNS 11/12/13 11:30am Office Visit APARNA Burks JEFF 11/05/13 9:15am Discharged Inpatient [facility] 10/30/13 12:37pm Office Visit APARNA Burks JEFF 10/27/13 10:45am Office Visit APARNA R JEFF 10/06/13 11:15am Office Visit APARNA R JEFF 09/24/13 10:00am Office Visit APARNA R JEFF 09/08/13 10:30am Office Visit APARNA R JEFF 08/25/13 10:00am Office Visit APARNA R JEFF 08/18/13 11:00am Registered Clinic Aida Navarro [facility] 08/11/13 2:45pm Office Visit APARNA DELUCAHNS 08/11/13 2:15pm Office Visit APARNA DELUCAHNS 08/05/13 10:45am Office Visit APARNA R JEFF 07/31/13 1:00pm Office Visit APARNA R JEFF 07/30/13 10:05am Office Visit APARNA R JEFF 07/24/13 11:30am Office Visit APARNA R JEFF 07/14/13 10:30am Office Visit APARNA R JEFF 06/30/13 10:30am Registered Clinic Aida Benson [facility] 06/09/13 11:37am Office Visit APARNA R JEFF 06/09/13 11:30am Registered Clinic Aida Benson [facility] 06/02/13 11:35am Office Visit APARNA R JEFF 06/02/13 11:15am Discharged Inpatient Aida Benson [facility] 05/28/13 7:10am Office Visit APARNA R JEFF 05/27/13 1:00pm Discharged Inpatient Aida Benson [facility] 05/25/13 9:20am Office Visit APARNA R JEFF 05/19/13 11:15am Registered Clinic Aida Benson [facility] 05/12/13 1:36pm Office Visit APARNA R [...]
--- NOTE | 2016-11-10 09:20 | NUR ---
FAMILY/PT BELOGINGS PT'S AND FAMILY LEAVING NOW. PT'S /DPOA REPORTS SHE HAS TAKEN PT'S [place] RING AND SHOWS ME SHE IS NOW WEARING IT. DENIES THAT PT WOULD HAVE ANY OTHER JEWLERY OR PERSONAL BELONGINGS.
--- NOTE | 2016-11-10 09:25 | NUR ---
HOME/DEPART ED HOME STAFF HERE FOR TRANSPORT. PT DEPART PER HOME, BELONGINGS ON PT, RED SWEAT SHIRT AND WHITE T-SHIRT BOTH WHICH HAS BEEN CUT FOR ACCESS. NO OTHER PERSONAL BELONGINGS.
[2016-11-10] MEDS ORDERED: NALOXONE IV ONE (12:40)
[2016-11-10] MEDS ORDERED: EPINEPHRINE 1mg/10ml PFS IV ONE (12:40)
== END 2016-11-10 06:16 | disposition expired ==
LOC: ED 06:00
DX: I46.9 Cardiac arrest, cause unspecified (principal); I11.0 Hypertensive heart disease with heart failure; I50.9 Heart failure, unspecified
CPT/HCPCS: 92950; 99285; J0171; J2310